=== PATIENT | female | born 1955 | race Caucasian/White ===

== ENCOUNTER → 2018-07-09 11:09 | Outpatient (CLI) | payer OTHER, SELFPAY ==
[2018-07-09 12:15] LABS: Erythrocyte Sedimentation Rate 13 mm/hr (0-30)
[2018-07-09 12:32] LABS: Vitamin D,25 Hydroxy 40.2 ng/mL (29.95-100.01)
[2018-07-09 12:35] LABS: ALB/GLOB Ratio 1.2 RATIO (0.9-2.4); AST(SGOT) 25 U/L (15-37); Alanine Aminotransfer ALT/SGPT 35 U/L (13-56); Alkaline Phosphatase 81 U/L (45-117); Anion Gap 9 (5-15); BUN 26 mg/dL (7-18); BUN/Creat Ratio 27.5 RATIO (10-20); Calcium,Total 9.1 mg/dL (8.5-10.1); Chloride 103 mmol/L (98-107); Creatinine, Serum 0.95 mg/dL (0.55-1.02); EST Glomerular Filtration Rate 63 mL/min (>60); Est Glom Filt Rate - Afr Amer 76 mL/min (>60); Globulin 3.2 g/dL (2.2-4.2); Glucose 91 mg/dL (74-106); Protein, Total 7.2 g/dL (6.4-8.2); Sodium Level 142 mmol/L (136-145)
== END ==
PROVIDERS: Family Provider Family Medicine; PCP Family Medicine; Visit Provider Family Medicine
DX: L40.9 Psoriasis, unspecified (principal); R73.01 Impaired fasting glucose
CPT/HCPCS: 36415; 80053; 82043; 82306; 82570; 85652

== ENCOUNTER → 2018-09-23 09:53 | Outpatient (CLI) | payer OTHER, MEDICARE, SELFPAY ==
--- NOTE | 2018-09-23 10:00 | RAD_ITS ---
STUDY: X-RAY - RIGHT CALCANEUS REASON FOR EXAM: Heel pain. TECHNIQUE: 2 view(s) of the calcaneus were obtained. COMPARISON: Radiographs 06/07/2016. FINDINGS: There are posterior and plantar calcaneal enthesophytes. 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 There are small ossifications in the distal Achilles tendon consistent with chronic ossific tendinitis. RAD/Calcaneus min 2 Views IMPRESSION: Calcaneal enthesopathy as on the prior study. 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 Electronically Signed: George Najera MD at 13:34 EST Tel , Service support ,
--- NOTE | 2018-09-23 10:00 | RAD_ITS ---
STUDY: X-RAY - LEFT CALCANEUS REASON FOR EXAM: Heel pain. TECHNIQUE: 2 view(s) of the calcaneus were obtained. COMPARISON: Radiographs 09/23/2018. FINDINGS: There are posterior and plantar calcaneal enthesophytes. There is an ossification in the Achilles tendon at the calcaneal insertion consistent with chronic ossific tendinitis. RAD/Calcaneus min 2 Views IMPRESSION: Calcaneal enthesopathy as on the prior study. 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 Electronically Signed: George Najera MD at 13:33 EST Tel , Service support ,
== END ==
PROVIDERS: Family Provider Family Medicine; PCP Family Medicine; Referring Provider Family Medicine; Visit Provider Family Medicine
DX: M77.30 Calcaneal spur, unspecified foot (principal)
CPT/HCPCS: 73650

== ENCOUNTER → 2018-09-24 09:35 | Outpatient (CLI) | payer OTHER, SELFPAY ==
--- NOTE | 2018-09-24 09:41 | BI_ITS ---
MAMMOGRAPHY - BILATERAL SCREENING REASON FOR EXAM: Female, 63 years old. Routine annual screening examination. PERTINENT HISTORY: Non-contributory. Remote left excisional breast biopsy. TECHNIQUE: Digital bilateral breast bay (3D mammographic acquisition) in the CC and MLO projections. 2-D mediolateral oblique (MLO) and craniocaudad (CC) views of both breasts were obtained. CAD: Full Field Digital Mammography with Computer Added Detection was performed. COMPARISON: Comparison is made with prior examination dated July 13, 2015 and July 25, 2016. FINDINGS: Breast Composition: There are scattered areas of fibroglandular density. There is a 7.1 mm x 5.2 mm well-defined nodule in the mid retroareolar region. Correlation with ultrasound is recommended. Stable small bilateral axillary lymph nodes. No other significant abnormalities are identified. BI/SCREENING MAMM (CAD), BILAT IMPRESSION: 7.1 mm x 5.2 mm well-defined nodule in the mid depth retroareolar region of the left breast. Correlation with ultrasound is recommended. ASSESSMENT CATEGORY: BIRADS Category 0: Incomplete. Need additional imaging evaluation. A letter regarding these results will be sent to the patient by the facility within 30 days. Approximately 10% of breast cancers are not detected by mammography. A normal mammogram should not delay biopsy of a clinically suspicious abnormality. [id number] Electronically Signed: Roland Christiansen MD at 13:02 EST Tel [phone], Service support ,
--- NOTE | 2018-09-24 09:43 | BD_ITS ---
STUDY: DUAL ENERGY X-RAY ABSORPTIOMETRY / DXA REASON FOR EXAM: Female, 63 years old. The patient is postmenopausal. Loss of height. TECHNIQUE: Bone Mineral Density (BMD) measurements of lumbar spine and bilateral hips were obtained. COMPARISON: Comparison is made with prior study dated July 19, 2016. FINDINGS: Lumbar Spine (L1-L4): g/cm2 (1.611) / T-score (3.7) / Z-score (5.3) Findings are suggestive of normal bone density with a low fracture risk. Left Femur Total: g/cm2 (1.427) / T-score (3.3) / Z-score (4.5) Left Femoral Neck: g/cm2 (1.150) / T-score (0.8) / Z-score (2.3) Right Femur Total: g/cm2 (1.345) / T-score (2.7) / Z-score (3.9) Right Femoral Neck: g/cm2 (1.029) / T-score (-0.1) / Z-score (1.4) The T-Scores on the most recent prior examination were: Lumbar Spine (L1-L4): There has been worsening of bone density since the previous examination. Left Femur Total: which represents an improvement of 4.9%. Right Femur Total: which represents a worsening of 2.1%. BD/Dexa Bone Density Study IMPRESSION: The patient is considered normal as outlined below according to World [employer] Organization (WHO) criteria with a low fracture risk. There has been worsening of bone density since the previous examination. Reference Information: The T-score is the number of standard deviations above or below the standard which is normal for young adults at their peak bone mineral density. The World Health Organization (WHO) interprets the T-scores as follows: Above -1 Normal bone density Between -1 and -2.5 Osteopenia Equal to / or below -2.5 Osteoporosis As a practical clinical guideline, osteopenia may be graded as follows: Mild -1 through -1.5 Moderate -1.6 through -2.0 Severe -2.1 through -2.4 The Z-score is the number of standard deviations above or below age-matched controls. A Z-score of less than -1.5 would be considered abnormal. References: 1. NIH Osteoporosis and Related Bone Diseases http://www.osteo.org 2. International Society for Clinical Densitometry http://www.iscd.org 3. National Osteoporosis Foundation http://www.nof.org Electronically Signed: Roland Christiansen MD at 11:16 EST Tel [phone], Service support ,
== END ==
PROVIDERS: Family Provider Family Medicine; PCP Family Medicine; Visit Provider Family Medicine
DX: Z12.31 Encounter for screening mammogram for malignant neoplasm of breast (principal); Z78.0 Asymptomatic menopausal state
CPT/HCPCS: 77063; 77067; 77080

== ENCOUNTER → 2018-09-25 14:57 | Outpatient (CLI) | payer OTHER, MEDICARE, SELFPAY ==
--- NOTE | 2018-09-25 14:59 | US_ITS ---
STUDY: ULTRASOUND BREAST - LEFT REASON FOR EXAM: Female, 63 years old. Abnormal screening mammogram. TECHNIQUE: Axial and longitudinal images of the LEFT breast were performed with a high resolution ultrasound transducer. COMPARISON: Comparison is made with prior mammogram dated September 24, 2018. FINDINGS: LEFT Breast: The mammographic abnormality corresponds to a 6 mm x 4 mm x 4 mm cyst at the 6:00 position breast at 1 cm from the nipple. US/Breast Limited Unilateral IMPRESSION: The mammographic abnormality corresponds to a 6 mm x 4 mm x 4 mm cyst at the 6:00 position of breast at 1 cm from the nipple. ASSESSMENT CATEGORY: BIRADS Category 2: Benign. A letter regarding these results will be sent to the patient by the facility within 30 days. Electronically Signed: Roland Christiansen MD at 8:27 EST Tel [phone], Service support ,
== END ==
PROVIDERS: Family Provider Family Medicine; PCP Family Medicine; Referring Provider Family Medicine; Visit Provider Family Medicine
DX: R92.8 Other abnormal and inconclusive findings on diagnostic imaging of breast (principal)
CPT/HCPCS: 76642

== ENCOUNTER → 2018-10-06 12:51 | Outpatient (CLI) | payer OTHER, MEDICARE, SELFPAY ==
--- NOTE | 2018-10-06 12:53 | RAD_ITS ---
STUDY: X-RAY - LEFT SHOULDER REASON FOR EXAM: Female, 63 years old. Pain. TECHNIQUE: 4 view(s) of the shoulder. COMPARISON: None. FINDINGS: Normal glenohumeral articulation. There is degenerative arthrosis of the acromioclavicular joint without inferior osseous spur formation. Normal acromion. There is no acute fracture, dislocation or destructive osseous pathology. Normal humeral head and visualized proximal humerus. The soft tissue structures are unremarkable. Normal visualized pulmonary apex. RAD/Shoulder min 2 Views IMPRESSION: Degenerative changes of the acromioclavicular joint. Electronically Signed: Justin Omer DO at 17:50 EST Tel [phone], Service support ,
--- OUTSIDE RECORDS SUMMARY | 2018-12-08 23:45 | XMS RPT_ITS ---
:1955 Author Organization OHIP Care Team Providers Name Role Phone Davidson Naik Attending Unavailable Davidson Naik Referring Unavailable Jemma, Pollo Primary Care Unavailable Pollo Easton Attending Unavailable [facility] Unavailable Pollo Easton Attending Unavailable Jemma, [facility] Unavailable Pollo Easton Attending Unavailable Pollo Easton Referring Unavailable Jemma, Christopher Primary Care Unavailable Pollo Easton Attending Unavailable Pollo Easton Referring Unavailable Jemma, Christopher Primary Care Unavailable PROBLEMS PROBLEMS DATE TYPE CONDITION / ATTENDING STATUS SOURCE CODE 10/06/2018 Unknown M25.512 - Pain Jemma Active [place] in left [facility] shoulder / Hospital M25.512(ICD-10) Repository PROCEDURES PROCEDURES No Procedure Records FoundRESULTS RESULTS SHOULDER MIN 2 VIEWS Observed: 10/06/2018 Status: F Source: [place] 12:53 PM [facility] REPOSITORY [facility] Imaging Services [address] [place] [address] Shoulder min 2 Views MR#: [id number] Acct: [id number] Name: LISANDRA ABREU Rep #: [id number] : 1955 F 63 From: Justin Omer DO PCP: Pollo Easton MD Status: REG CLI Study: Shoulder min 2 Views Date of Exam: 10/06/18 Exam# [id number] Ordering Dr: Kit Easton MD STUDY: X-RAY - LEFT SHOULDER REASON FOR EXAM: Female, 63 years old. Pain. TECHNIQUE: 4 view(s) of the shoulder. COMPARISON: None. FINDINGS: Normal glenohumeral articulation. There is degenerative arthrosis of the acromioclavicular joint without inferior osseous spur formation. Normal acromion. There is no acute fracture, dislocation or destructive osseous pathology. Normal humeral head and visualized proximal humerus. The soft tissue structures are unremarkable. Normal visualized pulmonary apex. RAD/Shoulder min 2 Views IMPRESSION: Degenerative changes of the acromioclavicular joint. Electronically Signed: Justin Omer DO at 17:50 EST Tel [phone], Service support , CC: Pollo Easton MD Card Boxer: Signed BREAST LIMITED Observed: 09/25/2018 Status: F Source: [place] UNILATERAL 2:59 PM [facility] REPOSITORY [facility] Imaging Services [address] [place] [address] Breast Limited Unilateral MR#: [id number] Acct: [id number] Name: LISANDRA ABREU Rep #: [id number] : 1955 F 63 From: Roland Christiansen MD PCP: Pollo Easton MD Status: REG CLI Study: Breast Limited Unilateral Date of Exam: 09/25/18 Exam# [id number] Ordering Dr: Kit Easton MD STUDY: ULTRASOUND BREAST - LEFT REASON FOR EXAM: Female, 63 years old. Abnormal screening mammogram. TECHNIQUE: Axial and longitudinal images of the LEFT breast were performed with a high resolution ultrasound transducer. COMPARISON: Comparison is made with prior mammogram dated September 24, 2018. FINDINGS: LEFT Breast: The mammographic abnormality corresponds to a 6 mm x 4 mm x 4 mm cyst at the 6:00 position breast at 1 cm from the nipple. US/Breast Limited Unilateral IMPRESSION: The mammographic abnormality corresponds to a 6 mm x 4 mm x 4 mm cyst at the 6:00 position of breast at 1 cm from the nipple. ASSESSMENT CATEGORY: BIRADS Category 2: Benign. A letter regarding these results will be sent to the patient by the facility within 30 days. Electronically Signed: Roland Christiansen MD at 8:27 EST Tel [phone], Service support , CC: Pollo Easton MD Card Boxer: Signed DEXA BONE DENSITY Observed: 09/24/2018 Status: F Source: [place] STUDY 9:41 AM [facility] REPOSITORY [facility] Imaging Services [address] [place] [address] Dexa Bone Density Study MR#: [id number] Acct: [id number] Name: LISANDRA ABREU Rep #: [id number] : 1955 F 63 From: Roland Christiansen MD PCP: Pollo Easton MD Status: REG CLI Study: Dexa Bone Density Study Date of Exam: 09/24/18 Exam# [id number] Ordering Dr: Kit Easton MD STUDY: DUAL ENERGY X-RAY ABSORPTIOMETRY / DXA REASON FOR EXAM: Female, 63 years old. The patient is postmenopausal. Loss of height. TECHNIQUE: Bone Mineral Density (BMD) measurements of lumbar spine and bilateral hips were obtained. COMPARISON: Comparison is made with prior study dated July 19, 2016. FINDINGS: Lumbar Spine (L1-L4): g/cm2 (1.611) / T-score (3.7) / Z-score (5.3) Findings are suggestive of normal bone density with a low fracture risk. Left Femur Total: g/cm2 (1.427) / T-score (3.3) / Z-score (4.5) Left Femoral Neck: g/cm2 (1.150) / T-score (0.8) / Z- score (2.3) Right Femur Total: g/cm2 (1.345) / T-score (2.7) / Z- score (3.9) Right Femoral Neck: g/cm2 (1.029) / T-score (-0.1) / Z-score (1.4) The T-Scores on the most recent prior examination were: Lumbar Spine (L1-L4): There has been worsening of bone density since the previous examination. Left Femur Total: which represents an improvement of 4.9%. Right Femur Total: which represents a worsening of 2.1%. BD/Dexa Bone Density Study IMPRESSION: The patient is considered normal as outlined below according to World [employer] Organization (WHO) criteria with a low fracture risk. There has been worsening of bone density since the previous examination. Reference Information: The T-score is the number of standard deviations above or below the standard which is normal for young adults at their peak bone mineral density. The World Health Organization (WHO) interprets the T-scores as follows: Above -1 Normal bone density Between -1 and -2.5 Osteopenia Equal to / or below -2.5 Osteoporosis As a practical clinical guideline, osteopenia may be graded as follows: Mild -1 through -1.5 Moderate -1.6 through -2.0 Severe -2.1 through -2.4 The Z-score is the number of standard deviations above or below age-matched controls. A Z-score of less than -1.5 would be considered abnormal. References: 1. NIH Osteoporosis and Related Bone Diseases http://www.osteo.org 2. International Society for Clinical Densitometry http://www.iscd.org 3. National Osteoporosis Foundation http://www.nof.org Electronically Signed: Roland Christiansen MD at 11:16 EST Tel [phone], Service support , CC: Pollo Easton MD Card Boxer: Signed SCREENING MAMM (CAD), Observed: 09/24/2018 Status: F Source: [place] BIL 9:41 AM [facility] REPOSITORY [facility] Imaging Services [address] [place] [place] [address] SCREENING MAMM (CAD), BILAT MR#: [id number] Acct: [id number] Name: LISANDRA ABREU Rep #: [id number] : 1955 F 63 From: Roland Christiansen MD PCP: Pollo Easton MD Status: REG CLI Study: SCREENING MAMM (CAD), BILAT Date of Exam: 09/24/18 Exam# [id number] Ordering Dr: Kit Easton MD MAMMOGRAPHY - BILATERAL SCREENING REASON FOR EXAM: Female, 63 years old. Routine annual screening examination. PERTINENT HISTORY: Non-contributory. Remote left excisional breast biopsy. TECHNIQUE: Digital bilateral breast bay (3D mammographic acquisition) in the CC and MLO projections. 2-D mediolateral oblique (MLO) and craniocaudad (CC) views of both breasts were obtained. CAD: Full Field Digital Mammography with Computer Added Detection was performed. COMPARISON: Comparison is made with prior examination dated July 13, 2015 and July 25, 2016. FINDINGS: Breast Composition: There are scattered areas of fibroglandular density. There is a 7.1 mm x 5.2 mm well-defined nodule in the mid retroareolar region. Correlation with ultrasound is recommended. Stable small bilateral axillary lymph nodes. No other significant abnormalities are identified. BI/SCREENING MAMM (CAD), BILAT IMPRESSION: 7.1 mm x 5.2 mm well-defined nodule in the mid depth retroareolar region of the left breast. Correlation with ultrasound is recommended. ASSESSMENT CATEGORY: BIRADS Category 0: Incomplete. Need additional imaging evaluation. A letter regarding these results will be sent to the patient by the facility within 30 days. Approximately 10% of breast cancers are not detected by mammography. A normal mammogram should not delay biopsy of a clinically suspicious abnormality. [id number] Electronically Signed: Roland Christiansen MD at 13:02 EST Tel [phone], Service support , CC: Pollo Easton MD Card Boxer: Signed CALCANEUS MIN 2 VIEWS Observed: 09/23/2018 Status: F Source: [place] 10:00 AM [facility] REPOSITORY [facility] Imaging Services [address] [place] [address] Calcaneus min 2 Views MR#: [id number] Acct: [id number] Name: LISANDRA ABREU Rep #: [id number] : 1955 F 63 From: George Najera MD PCP: Pollo East[place] MD Status: REG CLI Study: Calcaneus min 2 Views Date of Exam: 09/23/18 Exam# [id number] Ordering Dr: [place] Naik MD STUDY: X-RAY - LEFT CALCANEUS REASON FOR EXAM: Heel pain. TECHNIQUE: 2 view(s) of the calcaneus were obtained. COMPARISON: Radiographs 09/23/2018. FINDINGS: There are posterior and plantar calcaneal enthesophytes. There is an ossification in the Achilles tendon at the calcaneal insertion consistent with chronic ossific tendinitis. RAD/Calcaneus min 2 Views IMPRESSION: Calcaneal enthesopathy as on the prior study. 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 Electronically Signed: George Najera MD at 13:33 EST Tel , Service support , CC: Pollo Easton MD; Davidson Naik MD Card Boxer: Signed CALCANEUS MIN 2 VIEWS Observed: 09/23/2018 Status: F Source: [place] 10:00 AM [facility] REPOSITORY [facility] Imaging Services [address] [place] [address] Calcaneus min 2 Views MR#: [id number] Acct: [id number] Name: LISANDRA ABREU Rep #: [id number] : 1955 F 63 From: George Najera MD PCP: Pollo Easton MD Status: REG CLI Study: Calcaneus min 2 Views Date of Exam: 09/23/18 Exam# [id number] Ordering Dr: [place] Naik MD STUDY: X-RAY - RIGHT CALCANEUS REASON FOR EXAM: Heel pain. TECHNIQUE: 2 view(s) of the calcaneus were obtained. COMPARISON: Radiographs 06/07/2016. FINDINGS: There are posterior and plantar calcaneal enthesophytes. 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 There are small ossifications in the distal Achilles tendon consistent with chronic ossific tendinitis. RAD/Calcaneus min 2 Views IMPRESSION: Calcaneal enthesopathy as on the prior study. 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 Electronically Signed: George Najera MD at 13:34 EST Tel , Service support , CC: Pollo Easton MD; Davidson Naik MD Card Boxer: Signed ERYTHROCYTE SED RATE Collected: 07/09/2018 Status: F Source: [place] 11:10 AM [facility] REPOSITORY TYPE CODE TESTS RESULT OUT OF RANGE REFERENCE UNITS LAB L102.0000 0-30 mm/hr Normal SED RATE 13 Performed By: #### L101.9900, L506.1000, L500.4050 #### [facility] [address] [place], [place], [address] VITAMIN D,25 HYDROXY Collected: 07/09/2018 Status: F Source: [place] 11:10 AM [facility] REPOSITORY TYPE CODE TESTS RESULT OUT OF RANGE REFERENCE UNITS LAB L506.1000 29.95-100.01 ng/mL Normal Vitamin D 40.2 25-OH Result Comment: Vitamin D 25(OH) Status Range Deficiency <20 ng/mL (50nmol/L) Insuffciency 20 - 30 ng/mL (50 - 75 nmol/L) Sufficiency 30 - 100 ng/mL (75 - 250 nmol/L) Toxicity >100 ng/mL (>250 nmol/L) Performed By: #### L101.9900, L506.1000, L500.4050 #### [facility] [address] [place], [address] COMPREHENSIVE METABOLIC Collected: 07/09/2018 Status: F Source: [place] PROFIL 11:10 AM [facility] REPOSITORY TYPE CODE TESTS RESULT OUT OF RANGE REFERENCE UNITS LAB L501.0100 74-106 mg/dL Normal GLU 91 Result Comment: Please note revised GLUCOSE reference range effective 2017. LAB L501.1000 7-18 mg/dL High BUN 26 LAB L501.1100 0.55-1.02 mg/dL Normal CREAT,SERUM 0.95 Result Comment: The validity of the calculated GFR AND GFRAA in patients over 70 years has not been determined. Clinical correlation is essential. LAB L501.1110 >60 mL/min Normal EST GFR 63 Result Comment: Non- GFR Calc LAB L501.1115 >60 mL/min Normal EST GFR - AA 76 Result Comment: GFR Calc LAB L501.1300 10-20 RATIO High BUN/CRE 27.5 LAB L501.1500 6.4-8.2 g/dL T Normal PROT 7.2 LAB L501.1800 3.2-5.0 g/dL Normal ALB 4.0 LAB L501.1950 2.2-4.2 g/dL Normal GLOB 3.2 LAB L501.2000 0.9-2.4 RATIO Normal A/G 1.2 LAB L501.2200 8.5-10.1 mg/dL CA Normal 9.1 LAB L501.4100 15-37 U/L Normal AST 25 LAB L501.4305 45-117 U/L Normal ALK P 81 LAB L501.4405 13-56 U/L Normal ALT 35 LAB L501.4600 0.20-1.00 mg/dL T Normal BILI 0.70 LAB L501.5300 136-145 mmol/L NA Normal 142 LAB L501.5600 3.5-5.1 mmol/L K Normal 4.0 LAB L501.5900 98-107 mmol/L CL Normal 103 LAB L501.6100 21.0-32.0 mmol/L Normal CO2 30.0 LAB L501.6200 5-15 Normal GAP 9 Performed By: #### L101.9900, L506.1000, L500.4050 #### [facility] [address] [place], [place], [id number] ALLERGIES ALLERGIES DATE TYPE / CODE NAME / CODE REACTION SEVERITY SOURCE 04/23/2016 Drug tetracycline/E28627 Rash Unknown [place] Allergy/416 8097(RXNORM) [facility] 200165([facility] ED CT) Repository 04/23/2016 Drug erythromycin Rash Unknown [place] Allergy/416 base/[id number](RXN [facility] 201963([facility] ED CT) Repository ENCOUNTERS ENCOUNTERS ADMIT/DISCHARGE ACCOUNT ADMITTING ENCOUNTER LOCATION SOURCE NUMBER CLASS 10/06/2018 [id number] Ambulatory [place] 3 [facility] ing:MTRAD Repository 09/25/2018 [id number] Ambulatory [place] 0 [facility] ing:OPUS Repository 09/24/2018 [id number] Ambulatory [place] 3 [facility] ing:OPBD Repository 09/23/2018 [id number] [place] [facility] ing:MTRAD Repository 07/09/2018 [id number] Ambulatory [place] 2 [facility] ing:MFPLAB Repository PAYERS PAYERS ENCOUNTER GUARANTOR PAYER SUBSCRIBER SOURCE 10/06/2018 LISANDRA Solomon Primary LISANDRA K [place] [id number] Insurance:MEDICAL BRIERLYDOB: [facility] [place] Number: Repository [address]Gix: 330 [id number] [phone] () Date:8516-93-78DX[address] [address]AO: 10/06/2018 Secondary NOT GIVENUNK [place] Insurance:SELF PAY [facility] Number: Effective Repository Date:2018-10-06 09/25/2018 LISANDRA Carbajal Primary LISANDRA K [place] [id number] Insurance:MEDICAL BRIERLYDOB: [facility] [place] Number: Repository [address]Wcw: 330 [id number] [phone] () Date:6794-72-04AD[address] [address]GJ: 09/25/2018 Secondary NOT GIVENUNK [place] Insurance:SELF PAY [facility] Number: Effective Repository Date:2018-09-24 09/24/2018 LISANDRA K Primary LISANDRA K [place] [id number] Insurance:MEDICAL BRIERLYDOB: [facility] [id number] Number: Repository [address]Iku: 330 [id number] [phone] (HP) Date:6425-16-70GO [address] [address]DY: 09/24/2018 Secondary NOT GIVENUNK [place] Insurance:SELF PAY [facility] Number: Effective Repository Date:2018-07-15 09/23/2018 LISANDRA K Primary LISANDRA K [place] [id number] Insurance:MEDICAL BRIERLYDOB: [facility] [id number] Number: Repository [address]Fit: 330 [id number] [phone] (HP) Date:8629-41-52LD [address] [address]KL: 09/23/2018 Secondary NOT GIVENUNK [place] Insurance:SELF PAY [facility] Number: Effective Repository Date:2018-09-23 07/09/2018 Lisandra K Primary Lisandra K [place] [id number] Insurance:MEDICAL BrierlyDOB: [facility] [id number] Number: Repository [id number]: 330 [id number] [phone] (HP) Date:0294-55-30RP [address] [address]ML: 07/09/2018 Secondary NOT GIVENUNK [place] Insurance:SELF PAY [facility] Number: Effective Repository Date:2018-07-09
== END ==
PROVIDERS: Family Provider Family Medicine; PCP Family Medicine; Referring Provider Family Medicine; Visit Provider Family Medicine
DX: M25.512 Pain in left shoulder (principal)
CPT/HCPCS: 73030

== ENCOUNTER → 2018-12-03 16:14 | Outpatient (CLI) | payer MEDICARE, SELFPAY ==
--- NOTE | 2018-12-03 16:21 | MRI_ITS ---
STUDY: MRI LEFT ANKLE WITHOUT CONTRAST REASON FOR EXAM: Female, 63 years old. Achilles tendinitis TECHNIQUE: Standardized fat and water weighted pulse sequences were obtained in all 3 orthogonal planes. COMPARISON: X-ray September 23, 2018 FINDINGS: Normal subcutis adipose space. There is accessory navicular incorporated into the posterior tibialis tendon. There are cystic regions of the navicular. Normal flexor digitorum longus tendon. Normal flexor hallucis longus tendon. Normal peroneus longus and brevis tendons. Normal tibialis anterior tendon. Normal extensor hallucis longus tendon. Normal extensor digitorum longus tendons. There is tendinosis with enthesopathic changes of the teno-osseous insertion of the Achilles tendon, and partial intrasubstance distal tendon tear, series 10 image 06/07 through 09/06. There is spurring with mild marrow edema. Normal plantar fascia. There is a plantar calcaneal spur, but without cancellous marrow edema. Normal intrinsic muscles of the rearfoot. Normal distal tibiofibular syndesmotic ligamentous complex. Normal lateral ligamentous complex. Normal subtalar ligaments and sinus tarsi. Normal deltoid ligamentous complexes. Normal plantar calcaneonavicular (spring) ligament. Normal tibiotalar articulation. Normal talar dome. Normal subtalar articulations. Normal talonavicular articulation. Arthritic change at the calcaneocuboid articulation. Normal navicular-cuneiform articulations. MRI/Lower Ext Joint Only (Routine) IMPRESSION: Achilles tendinitis with partial tearing and reactive spur of the posterior calcaneus. Electronically Signed: Catrachito Hansen MD at 19:52 EDT , Service support ,
== END ==
PROVIDERS: Family Provider Family Medicine; PCP Family Medicine; Referring Provider Podiatrist; Visit Provider Podiatrist
DX: M76.62 Achilles tendinitis, left leg (principal); M72.2 Plantar fascial fibromatosis
CPT/HCPCS: 73721

== ENCOUNTER 2019-01-30 09:30 | Outpatient (RCR) | payer MEDICARE, SELFPAY ==
--- NOTE | 2019-01-16 11:30 | HP.PTEVAL ---
Patient's Visit Information CHRIS ABREU is a 63 year old F referred to Physical Therapy by Satish Sarkar DPM with a diagnosis of Achilles Tendonitis/Tendonosis, Retrocalcaneal Spur. Date of Evaluation: 01/16/19 Physical Therapist: Macy Darby DPT - Visit Plan Frequency: 2x /Week Duration: 2 Weeks Plan: Dry Needling, STM and ultrasound with gastroc stretching - Subjective Findings: Patient reports that she is currently seeing Dr. Sarkar for her achilles. She had the right one repaired 20 years ago when she had a bone spur. This one started to act up in September when she retired. She was unable to walk and finally gave him and saw MD even though the foot has been flaring on/off for at least a year. She has had MRI and x-ray of the left foot. MD attempted multiple rounds of steroids which would help for a few weeks but then it would come right back. He put her in the boot in the beginning of November and she is trying to progress towards an ankle brace. Most of her pain is in the back of the ankle and the ball of the foot. Describes it at dull and achy 3-4/10 at all times. Goes away when she sits down and is aggravated by standing for to long or walking. She report no radiating pain or N/T in the left LE. She is currently doing EPAT with Dr. Sarkar and has had 4 treatments and plans 2 more (one this afternoon). She is not exactly sure what to expect from therapy. Sleep is not disturbed. She does not wear orthotics in her shoes. PMHX: kidney cancer with removal of kidney 21 years ago, HTN, Borderline DM, Meds: see list - Objective Posture: FH, RS, Increased kyphosis. Gait: antalgic- ambulates into the clinic with CAM walker and platform shoe. When not in shoes patient has significant pes planus, toes turned out to the side, decreased stance on the left LE with poor heel/toe pattern. HR/TR: able with UE A from wall and increase discomfort with both. SLS: unable but does fully WS with UE A from wall. Palpation: tender along distal achilles and along proximal metatarsal joint. ROM: Knee: WFL, Ankle: DF: 0 degrees, PF: 60 degrees, Ever: 30 degrees Inv: 30 degrees. Strength: Knee/Ankle: 5/5. Flex: Gastroc: severe, Soleus: moderate - Goals Goal 1:: Patient will be I with HEP and progression Goal Time Frame: 4-6 Weeks Goal 2:: Patient will ambulate >300 feet with a normalized pattern Goal Time Frame: 4-6 Weeks Goal 3:: Patient will SLS for 5 seconds without LOB Goal Time Frame: 4-6 Weeks Goal 4:: Patient will demo 10 degrees of DF Goal Time Frame: 4-6 Weeks - Rehabilitation Potential Physical Therapy Diagnosis: Patient presents with hypomobility she has decreased ROM and increased pain with ADL's Rehabilitation Potential: Fair - Anticipated Interventions Patient/Client Instruction: Educate patient on: Benefits of Fitness Program Therapeutic Exercise to Include: Strength training, Balance training, Agility training, Body mechanics, Postural training, Flexibilty training, Gait and locomotor training, Passive ROM, Active ROM Manual Therapy Techniques to Include: Passive ROM, Functional dry needling, Soft tissue mobilization For the Purpose of:: To improve nutrient delivery to tissue, To increase oxygenation perfusion TENS: Yes Cryotherapy (ice pack, ice massage): Yes Thermo therapy (hot pack): Yes Ultrasound (thermal/non thermal): Yes For the Purpose of:: To decrease pain Thank you for the opportunity to evaluate your patient. For Medicare and Medicare HMO plans, please review the plan of care and approve it. It will need to be FAXED BACK to us at [phone] for Medicare purposes. For Medicare only, by signing this I certify the plan of care. Please let me know if there are questions or concerns regarding this plan of care. Physician Signature: Date:
--- NOTE | 2019-01-30 10:00 | HP.PTDCSUM ---
HP - PT D/C Summary It has been my pleasure to treat CHRIS ABREU under orders from Satish Sarkar DPM, for the diagnosis of Achilles Tendonitis/Tendonosis, Retrocalcaneal Spur for a total of 4 visit(s). Discharge Date: Please see the following information for a summary of their discharge status. - Subjective Subjective: Patient reports that she has not had pain for over 2 weeks. - Overall Improvement % Improvement: 100 - Objective Objective/Function: Posture: FH, RS, Increased kyphosis. Gait: antalgic- ambulates into the clinic with CAM walker and platform shoe. When not in shoes patient has significant pes planus, toes turned out to the side, decreased stance on the left LE with poor heel/toe pattern. HR/TR: able with UE A from wall and increase discomfort with both. SLS: unable but does fully WS with UE A from wall and will remove hands for a brief second. Palpation: tender along distal achilles and along proximal metatarsal joint. ROM: Knee: WFL, Ankle: DF: 0 degrees, PF: 60 degrees, Ever: 30 degrees Inv: 30 degrees. Strength: Knee/Ankle: 5/5. Flex: Gastroc: severe, Soleus: moderate - Goals Goal 1:: Patient will be I with HEP and progression Goal 2:: Patient will ambulate >300 feet with a normalized pattern Goal 3:: Patient will SLS for 5 seconds without LOB Goal 4:: Patient will demo 10 degrees of DF - Plan Plan: Discharge - D/C Information If there are questions or concerns regarding this patient's physical therapy, please feel free to call me at [phone]. Thank you for the referral of this patient. Sincerely, KELLEY SnyderT
== END 2019-01-30 13:50 | disposition home or self-care (01) ==
LOC: PT 09:30
PROVIDERS: Family Provider Family Medicine; PCP Family Medicine; Referring Provider Podiatrist; Visit Provider Podiatrist
DX: M76.62 Achilles tendinitis, left leg (principal); M77.52 Other enthesopathy of left foot and ankle
CPT/HCPCS: 97035; 97140; 97161; 97530

== ENCOUNTER → 2019-03-30 16:22 | Outpatient (CLI) | payer MEDICARE, SELFPAY ==
--- NOTE | 2019-03-30 16:26 | RAD_ITS ---
STUDY: X-RAY CHEST REASON FOR EXAM: Female, 63 years old. Chest pain TECHNIQUE: Frontal view of the chest COMPARISON: None. FINDINGS: The lungs are clear. There are no pleural effusions. There is no pneumothorax. The heart is normal in size. The visualized osseous structures are within normal limits. Mild to moderate multilevel osteophytosis is present with areas of bridging. RAD/Chest PA and Lateral IMPRESSION: No acute thoracic pathology. Electronically Signed: Satish Villeda, at 17:06 EDT Tel , Service support ,
== END ==
PROVIDERS: Family Provider Family Medicine; PCP Family Medicine; Referring Provider Internal Medicine Pulmonary Disease; Visit Provider Internal Medicine Pulmonary Disease
DX: R09.02 Hypoxemia (principal); Z87.891 Personal history of nicotine dependence
CPT/HCPCS: 71046

== ENCOUNTER → 2019-03-31 | Outpatient (CLI) | payer MEDICARE, SELFPAY ==
[2019-03-31 13:26] LABS: Anion Gap 8 (5-15); BUN 20 mg/dL (7-18); BUN/Creat Ratio 21.2 RATIO (10-20); Calcium,Total 9.6 mg/dL (8.5-10.1); Chloride 100 mmol/L (98-107); Cholesterol 140 mg/dL (200); Creatinine, Serum 0.94 mg/dL (0.55-1.02); EST Glomerular Filtration Rate 63 mL/min (>60); Est Glom Filt Rate - Afr Amer 77 mL/min (>60); Glucose 120 mg/dL (74-106); High Density Lipoprotein 52 mg/dL; Potassium 4.2 mmol/L (3.5-5.1); Sodium Level 140 mmol/L (136-145); Triglycerides 139 mg/dL; Very Low Density Lipoprotein 28 mg/dL (5-40)
== END | disposition home or self-care (01) ==
LOC: MFPLAB 11:25
PROVIDERS: Family Provider Family Medicine; PCP Family Medicine; Referring Provider Family Medicine; Visit Provider Family Medicine
DX: E11.9 Type 2 diabetes mellitus without complications (principal); E78.00 Pure hypercholesterolemia, unspecified
CPT/HCPCS: 36415; 80048; 80061

== ENCOUNTER → 2019-07-24 09:28 | Outpatient (CLI) | payer MEDICARE, SELFPAY ==
--- NOTE | 2019-07-24 09:31 | US_ITS ---
PROCEDURES: ULTRASOUND AORTA REASON FOR EXAM: Female, 63 years old. Screening for abdominal aortic aneurysm. TECHNIQUE: Ultrasound evaluation of the aorta was performed with real-time and static coto-scale imaging. COMPARISON: None. FINDINGS: There is obscuration of the proximal abdominal aorta by overlying bowel gas Aorta measures: Proximal 1.6 cm. Middle 1.5 cm. Distal 1.5 cm. Aorta measure transversely: Proximal 1.8 cm. Middle 1.8 cm. Distal 2.0 cm. The right and left common iliac arteries were not visualized due to overlying bowel gas. There is no demonstrated aneurysm.. US/Aorta IMPRESSION: No evidence of abdominal aortic aneurysm. Electronically Signed: Roland Christiansen, at 13:36 EST , Service support ,
== END ==
PROVIDERS: Family Provider Family Medicine; PCP Family Medicine; Referring Provider Family Medicine; Visit Provider Family Medicine
DX: Z13.6 Encounter for screening for cardiovascular disorders (principal)
CPT/HCPCS: 76775

== ENCOUNTER → 2019-09-29 09:56 | Outpatient (CLI) | payer MEDICARE, OTHER, SELFPAY ==
--- NOTE | 2019-09-29 10:00 | BI_ITS ---
MAMMOGRAPHY - BILATERAL SCREENING REASON FOR EXAM: Female, 64 years old. Routine annual screening examination. PERTINENT HISTORY: Non-contributory. Remote left excisional breast biopsy. TECHNIQUE: Digital bilateral breast nicole (3D mammographic acquisition) in the CC and MLO projections. 2-D mediolateral oblique (MLO) and craniocaudad (CC) views of both breasts were obtained. CAD: Full Field Digital Mammography with Computer Added Detection was performed. COMPARISON: Comparison is made with prior study dated September 24, 2018 and July 25, 2016. FINDINGS: Breast Composition: There are scattered areas of fibroglandular density. There are no dominant masses or suspicious calcifications. Stable 7 mm x 5 mm well-defined nodule in the mid retroareolar region of the left breast. This was demonstrated to be a small cyst on prior sonogram. No other significant abnormalities are identified. There has been no significant change since the prior study. BI/SCREEN MAMM (CAD) W/NICOLE BILAT IMPRESSION: Stable bilateral screening mammogram. Yearly follow-up mammogram recommended. (A) ASSESSMENT CATEGORY: BIRADS Category 2: Benign. A letter regarding these results will be sent to the patient by the facility within 30 days. Approximately 10% of breast cancers are not detected by mammography. A normal mammogram should not delay biopsy of a clinically suspicious abnormality. [id number] Electronically Signed: Roland Christiansen, at 11:19 EST , Service support ,
== END ==
PROVIDERS: Family Provider Family Medicine; PCP Family Medicine; Referring Provider Family Medicine; Visit Provider Family Medicine
DX: Z00.00 Encounter for general adult medical examination without abnormal findings (principal); Z12.31 Encounter for screening mammogram for malignant neoplasm of breast
CPT/HCPCS: 77063; 77067

== ENCOUNTER → 2019-10-13 10:20 | Outpatient (CLI) | payer MEDICARE, OTHER, SELFPAY ==
[2019-10-13 12:48] LABS: ALB/GLOB Ratio 1.2 RATIO (0.9-2.4); AST(SGOT) 27 U/L (15-37); Alanine Aminotransfer ALT/SGPT 44 U/L (13-56); Albumin, Serum 4.2 g/dL (3.2-5.0); Alkaline Phosphatase 90 U/L (45-117); Anion Gap 6 (5-15); BUN 22 mg/dL (7-18); BUN/Creat Ratio 20.6 RATIO (10-20); Calcium,Total 9.8 mg/dL (8.5-10.1); Chloride 101 mmol/L (98-107); Cholesterol 131 mg/dL (200); Creatinine, Serum 1.07 mg/dL (0.55-1.02); EST Glomerular Filtration Rate 55 mL/min (>60); Est Glom Filt Rate - Afr Amer 66 mL/min (>60); Globulin 3.5 g/dL (2.2-4.2); Glucose 112 mg/dL (74-106); High Density Lipoprotein 56 mg/dL; Potassium 3.9 mmol/L (3.5-5.1); Protein, Total 7.7 g/dL (6.4-8.2); Sodium Level 137 mmol/L (136-145); Thyroid Stim Hormone (TSH) 1.76 uIU/mL (0.358-3.74); Triglycerides 119 mg/dL; Very Low Density Lipoprotein 24 mg/dL (5-40)
== END ==
PROVIDERS: PCP Family Medicine; Referring Provider Family Medicine; Visit Provider Family Medicine
DX: E11.9 Type 2 diabetes mellitus without complications (principal)
CPT/HCPCS: 36415; 80053; 80061; 84443

== ENCOUNTER → 2020-02-02 11:01 | Outpatient (CLI) | payer MEDICARE, OTHER, SELFPAY ==
[2020-02-02 12:50] LABS: Anion Gap 8 (5-15); BUN 21 mg/dL (7-18); BUN/Creat Ratio 19.8 RATIO (10-20); Calcium,Total 9.3 mg/dL (8.5-10.1); Chloride 106 mmol/L (98-107); Creatinine, Serum 1.06 mg/dL (0.55-1.02); EST Glomerular Filtration Rate 55 mL/min (>60); Est Glom Filt Rate - Afr Amer 67 mL/min (>60); Glucose 109 mg/dL (74-106); Sodium Level 140 mmol/L (136-145)
== END ==
PROVIDERS: PCP Family Medicine; Visit Provider Family Medicine
DX: N18.9 Chronic kidney disease, unspecified (principal)
CPT/HCPCS: 36415; 80048

== ENCOUNTER → 2020-07-19 11:24 | Outpatient (CLI) | payer MEDICARE, OTHER, SELFPAY ==
[2020-07-19 15:54] LABS: Anion Gap 7 (5-15); BUN 21 mg/dL (7-18); BUN/Creat Ratio 18.9 RATIO (10-20); Calcium,Total 9.3 mg/dL (8.5-10.1); Chloride 103 mmol/L (98-107); Cholesterol 132 mg/dL (200); Creatinine, Serum 1.11 mg/dL (0.55-1.02); EST Glomerular Filtration Rate 52 mL/min (>60); Est Glom Filt Rate - Afr Amer 63 mL/min (>60); Glucose 114 mg/dL (74-106); High Density Lipoprotein 65 mg/dL; Potassium 3.9 mmol/L (3.5-5.1); Sodium Level 138 mmol/L (136-145); Thyroid Stim Hormone (TSH) 1.64 uIU/mL (0.358-3.74); Triglycerides 122 mg/dL; Very Low Density Lipoprotein 24 mg/dL (5-40)
[2020-07-19 17:30] LABS: Erythrocyte Sedimentation Rate 21 mm/hr (0-30)
== END ==
PROVIDERS: PCP Family Medicine; Referring Provider Family Medicine; Visit Provider Family Medicine
DX: E11.9 Type 2 diabetes mellitus without complications (principal); M13.0 Polyarthritis, unspecified; I10 Essential (primary) hypertension
CPT/HCPCS: 36415; 80048; 80061; 84443; 85652

== ENCOUNTER → 2020-09-20 11:08 | Outpatient (CLI) | payer MEDICARE, OTHER, SELFPAY ==
--- NOTE | 2020-09-20 11:13 | RAD_ITS ---
STUDY: X-RAY - ABDOMEN/PELVIS REASON FOR EXAM: Female, 65 years old. hematuria TECHNIQUE: Single AP view of the abdomen / pelvis. COMPARISON: None. FINDINGS: Normal visualized lung bases. There is an unremarkable bowel gas pattern. There is no demonstrated free abdominal air. The visualized liver, spleen and kidneys are grossly normal in size and morphology. Surgical clips project left lateral to the lumbar spine. There are diffuse degenerative changes of the visualized lumbar spine. RAD/Abdomen Single View IMPRESSION: 1. No suspicious intra-abdominal calcifications. Apparent left nephrectomy. Electronically Signed: Андрей Ponce MD ([facility]) at 13:17 EST , Service support ,
[2020-09-20 12:36] LABS: Absolute Lymphocyte Count 1.54 X10^3/uL (0.83-4.51); Basophil# 0.06 X10^3/uL; Basophil% 0.8 % (0-1); Eosinophil# 0.11 X10^3/uL; Eosinophils% 1.5 % (0-5); Hemoglobin 14.2 g/dL (12.0-15.0); Lymphocyte # 1.54 X10^3/ul (4.0); Lymphocyte % 21.3 % (19-41); Mean Corp Hgb Conc 32.3 g/dL (32-36); Mean Corpuscular Volume 86.6 fL (81-99); Mean Platelet Vol. 9.7 fl (6.2-12.0); Monocyte# 0.45 X10^3/uL; Monocyte% 6.2 % (0-10); NRBC Flagged by Analyzer 0 % (0-5); Neutrophil # 5.03 X10^3/uL (2.7-7.7); Neutrophil % 69.6 % (47-70); Platelet Count 210 K/mm3 (150-450); RBC Distribution Width CV 14.4 % (11.6-14.6); RBC Distribution Width SD 46.4 fl (35.1-43.9); Red Blood Count 5.08 M/mm3 (4.2-5.4); White Blood Count 7.2 K/mm3 (4.4-11.0)
[2020-09-20 12:50] LABS: Anion Gap 9 (5-15); BUN 19 mg/dL (7-18); BUN/Creat Ratio 18.3 RATIO (10-20); Calcium,Total 9.5 mg/dL (8.5-10.1); Chloride 103 mmol/L (98-107); Creatinine, Serum 1.04 mg/dL (0.55-1.02); EST Glomerular Filtration Rate 56 mL/min (>60); Est Glom Filt Rate - Afr Amer 68 mL/min (>60); Glucose 123 mg/dL (74-106); Potassium 3.7 mmol/L (3.5-5.1); Sodium Level 138 mmol/L (136-145)
== END ==
PROVIDERS: PCP Family Medicine; Referring Provider Family Medicine; Visit Provider Family Medicine
DX: I10 Essential (primary) hypertension (principal); R31.9 Hematuria, unspecified
CPT/HCPCS: 36415; 74018; 80048; 81001; 85025; 87086

== ENCOUNTER → 2020-09-22 13:43 | Outpatient (CLI) | payer MEDICARE, OTHER, SELFPAY | PROVIDERS: PCP Family Medicine; Referring Provider Family Medicine; Visit Provider Family Medicine | DX: R31.9 Hematuria, unspecified (principal) | CPT/HCPCS: 87077; 87086; 87088; 87186 ==

== ENCOUNTER → 2020-09-26 09:00 | Outpatient (CLI) | payer MEDICARE, OTHER, SELFPAY ==
--- NOTE | 2020-09-26 09:02 | US_ITS ---
STUDY: RENAL ULTRASOUND - COMPLETE REASON FOR EXAM: Female, 65 years old. Hematuria history of left nephrectomy TECHNIQUE: Ultrasound evaluation of the kidneys was performed with real-time and static lugo-scale imaging. COMPARISON: None. FINDINGS: RIGHT KIDNEY: Normal location of the right kidney, which is normal in size. The right kidney measures 13.6 x 7.0 x 6.1 cm. There is a normal cortex of the right kidney. The renal cortex measures 1.7 cm. The right renal cyst measuring 1.3 x 1.9 x 1.4 cm. There are no right renal calculi. There is no right hydronephrosis. DISTAL RIGHT URETER: There is non-visualization of the distal right ureter. There is no demonstrated right ureterovesical junction calculus. There is a visualized right ureteral jet. Left kidney is been surgically removed. There is incidental visualization of hepatic steatosis. BLADDER: The distended urinary bladder has a volume of 109.0 ml. The wall of the bladder measures up to 9 mm. There is no demonstrated mass within the urinary bladder. There are no demonstrated bladder calculi. US/Kidney and Bladder IMPRESSION: Bladder wall thickening suspicious for cystitis. No visualized hydronephrosis. Benign-appearing right renal cysts. Electronically Signed: Ivelisse Billy MD at 0:26 EST Tel , Service support ,
== END ==
PROVIDERS: PCP Family Medicine; Referring Provider Family Medicine; Visit Provider Family Medicine
DX: R31.9 Hematuria, unspecified (principal)
CPT/HCPCS: 76770

== ENCOUNTER → 2020-10-06 12:09 | Outpatient (CLI) | payer MEDICARE, OTHER, SELFPAY ==
--- NOTE | 2020-10-06 12:11 | BI_ITS ---
MAMMOGRAPHY - BILATERAL SCREENING REASON FOR EXAM: Female, 65 years old. Routine annual screening examination. PERTINENT HISTORY: Sister with breast cancer. TECHNIQUE: Digital bilateral breast nicole (3D mammographic acquisition) in the CC and MLO projections. 2-D mediolateral oblique (MLO) and craniocaudad (CC) views of both breasts were obtained. CAD: Full Field Digital Mammography with Computer Added Detection was performed. COMPARISON: Comparison is made with prior examination dated 09/29/2019 and 09/24/2018. FINDINGS: Breast Composition: There are scattered areas of fibroglandular density. There are no dominant masses or suspicious calcifications. Stable 7 mm x 5 mm well-defined nodule in the mid retroareolar region of the left breast. This was demonstrated to be a small cyst on prior sonogram. Stable benign appearing left axillary lymph nodes. No other significant abnormalities are identified. There has been no significant change since the prior study. BI/SCRN MAMM (CAD)W/NICOLE BILAT IMPRESSION: Stable bilateral screening mammogram. Yearly follow-up mammogram recommended. (A) ASSESSMENT CATEGORY: BIRADS Category 2: Benign. A letter regarding these results will be sent to the patient by the facility within 30 days. Approximately 10% of breast cancers are not detected by mammography. A normal mammogram should not delay biopsy of a clinically suspicious abnormality. [id number] Electronically Signed: Roland Christiansen MD at 13:07 EST , Service support ,
--- NOTE | 2020-10-06 12:15 | BD_ITS ---
STUDY: DUAL ENERGY X-RAY ABSORPTIOMETRY / DXA REASON FOR EXAM: Female, 65 years old. Age of flory 41. Pat is 277.7# and 65 and quot; a loss of 1 and quot; per patient. Past hx of using a thyroid medication for a very short time and a long time ago. Past hx of smoking for 30 yrs 15 cigs a day. Type II diabetic and takes metformin. Pat takes HCTZ and a multi-vit. Does not exercise. Hx of a repair to a ruptured disk in lower back. TECHNIQUE: Bone Mineral Density (BMD) measurements of lumbar spine and bilateral hips were obtained. COMPARISON: Comparison is made with prior study dated 04/27/2008. FINDINGS: Lumbar Spine (L1-L4): g/cm2 (1.603) / T-score (3.5) / Z-score (5.1) Findings are suggestive of normal bone density with a low fracture risk. Left Femur Total: g/cm2 (1.391) / T-score (3.0) / Z-score (4.3) Left Femoral Neck: g/cm2 (1.124) / T-score (0.6) / Z-score (2.2) Right Femur Total: g/cm2 (1.355) / T-score (2.8) / Z-score (4.1) Right Femoral Neck: g/cm2 (1.132) / T-score (0.7) / Z-score (2.2) The T-Scores on the most recent prior examination were: Lumbar Spine (L1-L4): There has been worsening of bone density since the previous examination. Left Femur Total: which represents a worsening of 2.5%. Right Femur Total: which represents an improvement of 0.7%. BD/Dexa Bone Density Study IMPRESSION: The patient is considered normal as outlined below according to World [employer] Organization (WHO) criteria with a low fracture risk. There has been worsening of bone density since the previous examination. Reference Information: The T-score is the number of standard deviations above or below the standard which is normal for young adults at their peak bone mineral density. The World Health Organization (WHO) interprets the T-scores as follows: Above -1 Normal bone density Between -1 and -2.5 Osteopenia Equal to / or below -2.5 Osteoporosis As a practical clinical guideline, osteopenia may be graded as follows: Mild -1 through -1.5 Moderate -1.6 through -2.0 Severe -2.1 through -2.4 The Z-score is the number of standard deviations above or below age-matched controls. A Z-score of less than -1.5 would be considered abnormal. References: 1. NIH Osteoporosis and Related Bone Diseases www osteo.org 2. International Society for Clinical Densitometry www iscd.org 3. National Osteoporosis Foundation www nof.org Electronically Signed: Roland Christiansen MD at 13:20 EST , Service support ,
== END ==
PROVIDERS: PCP Family Medicine; Referring Provider Family Medicine; Visit Provider Family Medicine
DX: Z12.31 Encounter for screening mammogram for malignant neoplasm of breast (principal); Z78.0 Asymptomatic menopausal state
CPT/HCPCS: 77063; 77067; 77080

== ENCOUNTER → 2021-03-02 17:26 | Outpatient (CLI) | payer MEDICARE, OTHER, SELFPAY | PROVIDERS: PCP Family Medicine; Visit Provider Family Medicine | DX: R30.0 Dysuria (principal) | CPT/HCPCS: 87086; 87088 ==

== ENCOUNTER → 2021-03-06 06:19 | Outpatient (CLI) | payer MEDICARE, OTHER, SELFPAY ==
--- NOTE | 2021-03-06 10:04 | STRESSREP ---
Stress Test Report Exercise and pharmacologic myocardial perfusion stress test. 65-year-old lady with a history of exertional shortness of breath. Stress protocol: Resting EKG demonstrates sinus rhythm with a rate of 61 bpm no intervals are noted resting blood pressure is 138/90 mmHg. The patient exercised according to the regular Elliot protocol for a total duration of 1 minute and 31 seconds. Patient got fatigued and needed to be switched over to a pharmacologic myocardial perfusion stress test. 0.4 mg of regadenoson was infused per usual protocol followed by rapid intravenous saline flush injection continuous EKG monitoring was performed. At rest there were no ST or T wave changes noted to suggest abnormal flow reserve and at peak infusion nonspecific ST changes were noted with did not meet the criteria for ischemia. The final blood pressure was 136/84 mmHg. Myocardial perfusion protocol. 15.0 mCi of technetium 99m sestamibi was injected at rest. 0.4 mg of regadenoson was infused per usual protocol. At peak infusion 44.4 mCi of technetium 99m sestamibi was injected stress images were obtained stress and rest images were reconstructed and compared in the short axis vertical long and horizontal long axis. Gated images were also obtained to Perfusion SPECT analysis: Review of the stress images demonstrate normal uptake of tracer noted in lateral wall, septum, inferior wall, and reduction of perfusion noted in the mid anterior wall. The resting images demonstrate an improvement in all areas of the myocardium. The above is suggestive of a mild amount of mid anterior ischemia. No previous infarct is noted. Gated SPECT analysis: The gated ejection fraction is 73%. Conclusion: Abnormal pharmacologic myocardial perfusion stress test with mid anterior ischemia. Poor exercise capacity noted. Preserved ejection fraction.
== END ==
PROVIDERS: PCP Family Medicine; Referring Provider Family Medicine; Visit Provider Family Medicine
DX: R06.00 Dyspnea, unspecified (principal)
CPT/HCPCS: 78452; 93017; A9500; A4216; J2785

== ENCOUNTER 2021-03-13 07:55 | Day surgery (SDC) | payer MEDICARE, OTHER, SELFPAY ==
[2021-03-07 12:39] VITALS: BMI 45.3
--- NOTE | 2021-03-07 16:20 | RAD_ITS ---
STUDY: X-RAY CHEST REASON FOR EXAM: Female, 65 years old. cad TECHNIQUE: PA and lateral views of the chest. COMPARISON: 03/30/2019 FINDINGS: The lungs are clear and expanded. There is no demonstrated pleural abnormality. Normal size heart. Normal mediastinum and kim. Normal visualized pulmonary arteries. Normal visualized aortic arch and descending thoracic aorta. Normal visualized thoracic spine. Normal visualized ribs, clavicles, and shoulders. There is no demonstrated abnormality of the visualized soft tissue structures of the upper abdomen. RAD/Chest PA and Lateral IMPRESSION: Normal x-ray examination of the chest. Electronically Signed: Unruly Christianson MD at 17:04 EDT Tel , Service support ,
[2021-03-07 17:26] LABS: Absolute Lymphocyte Count 1.62 X10^3/uL (0.83-4.51); Basophil# 0.05 X10^3/uL; Basophil% 0.7 % (0-1); Eosinophil# 0.14 X10^3/uL; Eosinophils% 1.9 % (0-5); Hematocrit 42.9 % (37-47); Hemoglobin 13.7 g/dL (12.0-15.0); Lymphocyte # 1.62 X10^3/ul (0.83-4.51); Lymphocyte % 22.1 % (19-41); Mean Corp Hgb Conc 31.9 g/dL (32-36); Mean Corpuscular Hgb 28.4 pg (27.0-32.0); Mean Platelet Vol. 9.8 fl (6.2-12.0); Monocyte# 0.55 X10^3/uL; Monocyte% 7.5 % (0-10); NRBC Flagged by Analyzer 0 % (0-5); Neutrophil # 4.95 X10^3/uL (2.7-7.7); Neutrophil % 67.4 % (47-70); Platelet Count 208 K/mm3 (150-450); RBC Distribution Width CV 14.3 % (11.6-14.6); RBC Distribution Width SD 46.3 fl (35.1-43.9); Red Blood Count 4.82 M/mm3 (4.2-5.4); White Blood Count 7.3 K/mm3 (4.4-11.0)
[2021-03-07 18:00] LABS: Anion Gap 6 (5-15); BUN 25 mg/dL (7-18); BUN/Creat Ratio 22.3 RATIO (10-20); Calcium,Total 9.7 mg/dL (8.5-10.1); Chloride 106 mmol/L (98-107); Creatinine, Serum 1.12 mg/dL (0.55-1.02); EST Glomerular Filtration Rate 52 mL/min (>60); Est Glom Filt Rate - Afr Amer 62 mL/min (>60); Glucose 102 mg/dL (74-106); Potassium 3.9 mmol/L (3.5-5.1); Sodium Level 142 mmol/L (136-145)
[2021-03-10 08:38] VITALS: BMI 46.0
--- NOTE | 2021-03-13 08:08 | ECHOD_ITS ---
Reason For Study: Dyspnea/SOB Procedure This was a 2D Doppler, Color Flow transthoracic echocardiogram. Did not use Definity, patient has one kidney. Exam performed in department. Left Ventricle Normal LV size. Left ventricular systolic function is normal. The estimated ejection fraction is 60 %. Stage 1 diastolic dysfunction. No regional wall motion abnormalities noted. Right Ventricle Normal RV size. Normal systolic function. Tricuspid Valve Normal tricuspid valve. Mild (1+) tricuspid valve insufficiency. Pulmonary artery systolic pressure is 34 mmHg. Aortic Valve Trisinus/trileaflet aortic valve. Mild aortic stenosis. Pulmonic Valve Normal pulmonic valve. Great Vessels Calcified aortic root. The pulmonary artery is normal size. Normal inferior vena cava. Pericardium/Pleural No pericardial effusion. MMode/2D Measurements & Calculations LVIDd: 4.5 cm IVSd: 1.1 cm Ao root diam: 3.1 cm LVIDs: 2.8 cm LVPWd: 1.2 cm RVDd: 2.7 cm FS: 38.8 % LAV(MOD-bp): 36.7 ml LA dimension(2D): 4.3 cm LA A4 area: 16.3 cm2 LAV(MOD-bp) Indexed: 16.0 ml/m2 LAV(MOD-sp2): 31.9 ml LAV(MOD-sp4): 38.4 ml RA A4 area: 14.7 cm2 Doppler Measurements & Calculations MV E max srinivasan: 86.1 cm/sec Lat Peak E' Srinivasan: 6.6 cm/sec Med Peak E' Srinivasan: 6.3 cm/sec MV A max srinivasan: 115.9 cm/sec E/E' lat: 13.1 E/E' med: 13.6 MV E/A: 0.74 Ao V2 max: 217.6 cm/sec LV V1 max: 133.6 cm/sec PA V2 max: 119.4 cm/sec Ao max P.9 mmHg LV V1 max P.1 mmHg Ao V2 mean: 135.4 cm/sec LV V1 mean P.8 mmHg Ao mean P.5 mmHg LV V1 mean: 93.0 cm/sec Ao V2 VTI: 44.3 cm LV V1 VTI: 27.8 cm TR max srinivasan: 267.2 cm/sec TR max P.6 mmHg ECHO/Echo Complete Interpretation Summary Normal LV size. Left ventricular systolic function is normal. The estimated ejection fraction is 60 %. Stage 1 diastolic dysfunction. Pulmonary artery systolic pressure is 34 mmHg. Calcified aortic root. Ordering Physician: Dominguez Cheema Referring Physician: Pollo Easton Performed By: Iman Riggins, RAF, RVT
--- NOTE | 2021-03-13 10:16 | CL.D_ITS ---
Patient Name: CHRIS ABREU Study Date: 03/13/2021 Performing: Dominguez Cheema MD Ht: 64.96 inches 165 cm : 1955 Wt: 277.78 lbs 126 kg Age: 65 Gender: female BSA: 2.27 PROCEDURE(S) PERFORMED SP29-[facility] CLINICAL PROFILE AND INDICATIONS Indications: Suspected CAD Heart Failure: None Stress/Imaging Date: 03/06/21ress Test with SPECT MPI: Positive Intermediate Risk CAD Presentations: Symptom unlikely to be ischemic. CONCLUSIONS No significant obstructive coronary disease. RECOMMENDATIONS Medical therapy DESCRIPTION OF PROCEDURE The patient arrived to the procedure lab. The risks and benefits of the procedure as well as a full d escription of our services here and current unavailability of surgical backup were fully explained to the patient and/or their significant other prior to the catheterization. The Timeout was completed, verifying the correct patient and procedure. The patient's procedural site was prepped and draped in the usual fashion. Local anesthetic was given subcutaneously to right radial region with Lidocaine 2% . Using a modified Seldinger technique, arterial access was obtained via the right radial artery, a 6 Fr sheath was inserted. Left Coronary Artery selective angiography was performed in multiple views u sing a 5 Fr. 4.0 Sun catheter. Right Coronary Artery selective angiography was then performed in mu ltiple views using a 5 Fr. 4.0 Sun catheter.The arterial sheath was pulled and a TR Band was applie d for hemostasis 10ml air CORONARY ANGIOGRAPHY DOMINANCE: Right Dominant LEFT HEART ASSESSMENT Left Ventricular Ejection Fraction: by Echo 60 % Normal LV wall motion Normal Left Ventricular systolic function LEFT MAIN: Mild calcification, No significant disease noted LEFT ANTERIOR DESCENDING ARTERY: No significant disease noted CIRCUMFLEX ARTERY: OSTIAL CIRC: 40 % Stenosis RIGHT CORONARY ARTERY: MID RCA: 40 % Stenosis COMPLICATIONS No Complications PROCEDURE MEDICATIONS Versed 1 mg IV Fentanyl 50 mcg IV Versed 1 mg IV Oxygen: 2 L/min via nasal cannula Heparin given IA 03/13/2021 09:55:43 Verapamil 2.5mg, Ntg 100mcgs, 2000 units of Heparin given IA 03/13/2021 09:55:43 SUMMARY OF HEMODYNAMIC DATA Time AIR REST ECG 08:30:10 AO 142/68 (98) SA 10:01:37 Signed By Dominguez Cheema MD On 03/13/2021 10:15:14 Dominguez Cheema MD
== END 2021-03-13 11:40 | disposition home or self-care (01) ==
PROVIDERS: PCP Family Medicine; Referring Provider Internal Medicine Cardiovascular Disease; Visit Provider Internal Medicine Cardiovascular Disease
DX: R07.9 Chest pain, unspecified (principal); R06.02 Shortness of breath; R94.39 Abnormal result of other cardiovascular function study; I10 Essential (primary) hypertension; E78.5 Hyperlipidemia, unspecified; E11.9 Type 2 diabetes mellitus without complications; Z82.49 Family history of ischemic heart disease and other diseases of the circulatory system; Z87.891 Personal history of nicotine dependence
CPT/HCPCS: 36415; 71046; 80048; 85025; 93306; 93454; 99152; 99153; J7040; Q9967; C1769; C1894

== ENCOUNTER → 2021-05-17 09:54 | Outpatient (CLI) | payer MEDICARE, OTHER, SELFPAY ==
[2021-05-17 11:29] LABS: Anion Gap 8 (5-15); BUN 22 mg/dL (7-18); BUN/Creat Ratio 23.5 RATIO (10-20); Calcium,Total 9.8 mg/dL (8.5-10.1); Chloride 105 mmol/L (98-107); Creatinine, Serum 0.94 mg/dL (0.55-1.02); EST Glomerular Filtration Rate 63 mL/min (>60); Est Glom Filt Rate - Afr Amer 77 mL/min (>60); Glucose 148 mg/dL (74-106); Sodium Level 137 mmol/L (136-145)
== END ==
PROVIDERS: PCP Family Medicine; Visit Provider Nurse Practitioner Gerontology
DX: R06.00 Dyspnea, unspecified (principal)
CPT/HCPCS: 36415; 80048; 83880

== ENCOUNTER 2021-11-30 08:31 | Outpatient (CLI) | payer MEDICARE, OTHER, SELFPAY ==
--- NOTE | 2021-11-30 13:19 | PFTCOMP_ITS ---
COMPLETE PULMONARY FUNCTION TEST INTERPRETATION Brief HPI: Patient is a 66 year old female, currently under the care of Renetta Sanchez, who presents to [facility] for complete pulmonary function tests secondary to diagnosis of dyspnea. Respiratory therapist reports good effort and reproducible results. Interpretation: Forced expiration spirometry shows no large airways obstructive ventilatory defect with an FEV1 of 70% predicted. There is no significant bronchodilator response by strict ATS criteria. Spirograms are of good quality and plateau slowly, indicating slowly emptying areas of the lungs. The respiratory flow volume loop shows decreased expiratory flow rates at high lung volumes consistent with small airways obstruction. Lung volumes by body plethysmography show a normal total lung capacity at 4.92 L, 94% predicted. All other lung volumes are within normal limits. Diffusion capacity by carbon monoxide is decreased at 41% predicted. The airway resistance is normal. No previous pulmonary function tests were available for review. Impression: Isolated reduction in diffusion capacity consistent with a pulmonary vascular disorder. Consider walking oximetry if not completed previously
== END 2021-11-30 23:59 | disposition home or self-care (01) ==
LOC: PSN 08:34
PROVIDERS: PCP Family Medicine; Referring Provider Nurse Practitioner Gerontology; Visit Provider Nurse Practitioner Gerontology
DX: R06.00 Dyspnea, unspecified (principal)
CPT/HCPCS: 94060; 94726; 94729

== ENCOUNTER → 2022-01-29 | Outpatient (CLI) | payer MEDICARE, OTHER, SELFPAY ==
--- NOTE | 2022-01-29 10:08 | ECHOCS_ITS ---
Reason For Study: PHTN Procedure This was a 2D Doppler, Color Flow transthoracic echocardiogram. The study was technically difficult. DID NOT USE DEFINITY. PT ONLY HAS 1 KIDNEY. Exam performed in department. Left Ventricle Normal LV size. Left ventricular systolic function is normal. The estimated ejection fraction is 55 %. Stage 1 diastolic dysfunction. No regional wall motion abnormalities noted. Right Ventricle Normal RV size. Normal systolic function. Mitral Valve Normal mitral valve. Tricuspid Valve Normal tricuspid valve. Mild tricuspid valve insufficiency. Pulmonary artery systolic pressure is 24 mmHg. Great Vessels Normal aortic root. Pericardium/Pleural No pericardial effusion. MMode/2D Measurements & Calculations LVIDd: 4.4 cm IVSd: 1.1 cm Ao root diam: 2.9 cm LVIDs: 2.1 cm LVPWd: 0.87 cm RVDd: 3.0 cm FS: 52.9 % LAV(MOD-sp2): 73.9 ml SV(MOD-sp4): 34.3 ml LVAd ap4: 21.3 cm2 LVLd ap4: 6.8 cm EDV(MOD-sp4): 53.9 ml EDV(sp4-el): 56.7 ml LVAs ap4: 10.8 cm2 LVLs ap4: 5.2 cm ESV(MOD-sp4): 19.6 ml ESV(sp4-el): 18.9 ml EF(MOD-sp4): 63.6 % EF(sp4-el): 66.7 % SV(sp4-el): 37.8 ml LA A4 area: 17.2 cm2 LA dimension(2D): 3.7 cm RA A4 area: 12.1 cm2 Doppler Measurements & Calculations MV E max srinivasan: 109.6 cm/sec Lat Peak E' Srinivasan: 6.8 cm/sec Med Peak E' Srinivasan: 4.8 cm/sec MV A max srinivasan: 143.5 cm/sec E/E' lat: 16.2 E/E' med: 22.6 MV E/A: 0.76 Ao V2 max: 201.1 cm/sec LV V1 max: 139.7 cm/sec TR max srinivasan: 224.8 cm/sec Ao max P.2 mmHg LV V1 max P.8 mmHg TR max P.2 mmHg ECHO/Echo Complete W/ Contrast Interpretation Summary Normal LV size. Left ventricular systolic function is normal. The estimated ejection fraction is 55 %. Stage 1 diastolic dysfunction. Pulmonary artery systolic pressure is 24 mmHg. Ordering Physician: Elliot Ennis Performed By: Brianna Mclain RCS
== END | disposition home or self-care (01) ==
LOC: CVS 10:04
PROVIDERS: PCP Family Medicine; Visit Provider Internal Medicine Critical Care Medicine
DX: R06.00 Dyspnea, unspecified (principal)
CPT/HCPCS: 93306; C8929

== ENCOUNTER → 2022-02-14 | Outpatient (CLI) | payer MEDICARE, OTHER, SELFPAY ==
[2022-02-14 12:30] VITALS: PULSE 68; PULSE 74; PULSE 82; PULSE 85; PULSE 89; PULSE 90; PULSE 91; O2SAT 92; O2SAT 93; O2SAT 94; O2SAT 96
--- NOTE | 2022-02-15 12:30 | PCM.PSN.6M ---
PSN 6 Minute Walk Test 6 Minute Walk Test 6 Minute Walk Test: 6 Minute Walk Test PSN:6-Minute Walk Test Start: 02/14/22 12:38 Freq: Status: Active Protocol: [id number] Document 02/14/22 12:30 EW (Rec: 02/14/22 12:48 EW [id number]) 6 Minute Walk Test Date Performed 02/14/22 Time Performed 12:30 Height 5 ft 8 in Weight: 118.388 kg Weight in Pounds 261.[address]: Elliot Ennis Assistive device used: None Pre-test Oxygen Delivery Method Room Air Pulse Ox (%) 96 Pulse Rate (60-100 beats/min) 68 Dyspnea Walter Scale (0-10) 1 Exertion Walter Scale (6-20) 8 1st minute Oxygen Delivery Method Room Air Pulse Ox (%) 93 Pulse Rate (60-100 beats/min) 85 2nd minute Oxygen Delivery Method Room Air Pulse Ox (%) 92 Pulse Rate (60-100 beats/min) 82 3rd minute Oxygen Delivery Method Room Air Pulse Ox (%) 92 Pulse Rate (60-100 beats/min) 89 4th minute Oxygen Delivery Method Room Air Pulse Ox (%) 92 Pulse Rate (60-100 beats/min) 91 5th minute Oxygen Delivery Method Room Air Pulse Ox (%) 92 Pulse Rate (60-100 beats/min) 90 6th minute Oxygen Delivery Method Room Air Pulse Ox (%) 92 Pulse Rate (60-100 beats/min) 91 Post-test Oxygen Delivery Method Room Air Pulse Ox (%) 94 Pulse Rate (60-100 beats/min) 74 Dyspnea Walter Scale (0-10) 3 Exertion Walter Scale (6-20) 13 Reported Symptoms Increased Work of Breathing Full Laps Walked 15 Partial Lap, Number of Tiles Walked 33 Total Distance Walked (ft) 918 Interpretation Interpretation: The patient ambulated 918 feet over the course of 6 minutes beginning on room air without assistive devices. Pretesting oxygen saturation was noted to be 96% on room air. With ambulation, the niranjan oxygen saturation was 92%. There was no significant exertional oxygen desaturation. Recommendations Recommendations: There is no indication for the use of supplemental oxygen at this time.
== END | disposition home or self-care (01) ==
PROVIDERS: PCP Family Medicine; Referring Provider Internal Medicine Critical Care Medicine; Visit Provider Internal Medicine Critical Care Medicine
DX: R06.00 Dyspnea, unspecified (principal)
CPT/HCPCS: 94618

== ENCOUNTER → 2022-04-17 | Outpatient (CLI) | payer MEDICARE, OTHER, SELFPAY | END | disposition home or self-care (01) | LOC: SL 09:33 | PROVIDERS: PCP Family Medicine; Referring Provider Internal Medicine Critical Care Medicine; Visit Provider Internal Medicine Critical Care Medicine | DX: G47.33 Obstructive sleep apnea (adult) (pediatric) (principal) | CPT/HCPCS: 98960; G0463 ==

== ENCOUNTER → 2025-03-22 | Outpatient (CLI) | payer MEDICARE, OTHER, SELFPAY | END | disposition home or self-care (01) | LOC: CVS 13:52 | PROVIDERS: PCP Family Medicine; Referring Provider Nurse Practitioner Gerontology; Visit Provider Nurse Practitioner Gerontology | DX: R60.0 Localized edema (principal); R06.09 Other forms of dyspnea; R01.1 Cardiac murmur, unspecified; M79.89 Other specified soft tissue disorders | CPT/HCPCS: 93306 ==

== ENCOUNTER → 2025-04-15 | Outpatient (CLI) | payer MEDICARE, OTHER, SELFPAY ==
--- OUTSIDE RECORDS SUMMARY | 2025-04-15 06:05 | XMS RPT_ITS | CCD ---
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 Kit Easton Primary Care Provider [phone] Dr. Kit Easton Referring Provider Dr. Dominguez Cheema Attending Provider Daniel CREAM DUMPER, CREAM DUMPER-C Renetta Attending Provider Dr. Pedro Jacob Primary Care Provider Daniel WHITNEY, CREAM DUMPER-C Renetta Referring Provider Daniel WHITNEY, CREAM DUMPER-C Renetta Other Provider Dr. Elliot Ennis Attending Provider Pedro Jacob MD Primary Care Provider Dr. Kit Easton Referring Provider Dr. Elliot Ennis Referring Provider Dr. Dominguez Cheema Attending Provider Dr. Elliot Ennis Other Provider Dr. Reginald Otero Attending Provider Pedro Jacob MD Primary Care Provider Pedro Jacob MD Primary Care Provider Pedro Jacob MD Primary Care Provider ZAIDA MIGUEL Attending Unavailable ZAIDA MIGUEL Admitting Unavailable PEDRO JACOB Primary Care Unavailable Pedro Jacob MD Primary Care Provider Haagen HIGHWAY TECHNICIAN.BEHAVIORAL CONSULTANT, Myrna Unavailable Suppan [address]IGHW[address] TECHNICIAN.BEHAVIORAL CONSULTANT, Anika A Unavailable [phone] TECHNICIAN.BEHAVIORAL CONSULTANT, Anika A Unavailable Cecil GILLETTE, Dr. Vasquez Primary Care Provider [phone] Daniel CREAM DUMPER-C, Renetta Attending Provider Daniel CREAM DUMPER-C, Renetta Referring Provider [phone] Dr. Dominguez Cheema MD Attending Provider CECIL, PEDRO J Primary Care Unavailable YOKASTACHEMA P Referring Unavailable YOKASTASTACIEEL P Attending Unavailable CECIL, PEDRO J Primary Care Unavailable CECIL, PEDRO J Referring Unavailable CECIL, PEDRO J Attending Unavailable CECIL, PEDRO J Primary Care Unavailable CECIL, PEDRO J Primary Care Unavailable CECIL, PEDRO J Referring Unavailable CECIL, PEDRO J Primary Care Unavailable CECIL, PEDRO J Referring Unavailable CECIL, PEDRO J Primary Care Unavailable CECIL, PEDRO J Referring Unavailable EVELYN RODRIGUEZ Attending Unavailable CECIL, PEDRO J Primary Care Unavailable CECIL, PEDRO J Referring Unavailable CHEMA TEMPLETON Attending Unavailable CECIL, PEDRO J Primary Care Unavailable BONIFACIO, OLGA Referring Unavailable BONIFACIO, OLGA Attending Unavailable CECIL, PEDRO J Primary Care Unavailable CECIL, PEDRO J Attending Unavailable CECIL, PEDRO J Primary Care Unavailable CECIL, PEDRO J Referring Unavailable CECIL, PEDRO J Primary Care Unavailable CECIL, PEDRO J Referring Unavailable CECIL, PEDRO J Primary Care Unavailable LINDSEY TRAYLOR Attending Unavailable CECIL, PEDRO J Primary Care Unavailable SELF Referring Unavailable LINDSEY TRAYLOR Attending Unavailable CECIL, PEDRO J Primary Care Unavailable BONIFACIO, OLGA Referring Unavailable CECIL, PEDRO J Primary Care Unavailable BONIFACIO, OLGA Referring Unavailable CECIL, PEDRO J Primary Care Unavailable CECIL, PEDRO J Primary Care Unavailable BONIFACIO, OLGA Referring Unavailable CECIL, PEDRO J Primary Care Unavailable CECIL, PEDRO J Referring Unavailable CECIL, PEDRO J Primary Care Unavailable CECIL, PEDRO J Referring Unavailable Cecil, Pedro Primary Care Unavailable Daniel WHITNEY, Renetta Attending Unavailable [place], Pedro Primary Care Unavailable Dominguez Cheema Attending Unavailable [place], Pedro Primary Care Unavailable Daniel CREAM DUMPER, Renetta Attending Unavailable Daniel CREAM DUMPER, Renetta Referring Unavailable [place], Pedro Primary Care Unavailable Daniel CREAM DUMPER, Renetta Attending Unavailable Daniel CREAM DUMPER, Renetta Referring Unavailable Cecil, Pedro Primary Care Unavailable [place], Pedro Referring Unavailable Rola Gonzalez Attending Unavailable Dominguez Cheema Attending Unavailable Pedro Jacob Primary Care Unavailable Pedro Jacob Referring Unavailable Allergies Allergy Classification Reported Allergen(s) Allergy Type Date of Onset Reaction(s) Facility Adrenergic Antagonists (1 source) carvedilol Drug Allergy 1 Intolerance [facility] Atenolol (1 source) Atenolol Drug Allergy 1 Intolerance [facility] Calcium Channel Blockers (2 sources) dilTIAZem Drug Allergy 1 Intolerance [facility] Macrolides (antibiotic) (1 source) Erythromycin Drug Allergy 7 [facility] Work Phone: Metoprolol (1 source) Metoprolol Drug Allergy 1 Intolerance [facility] Nadolol (1 source) Nadolol Drug Allergy 1 Intolerance [facility] Tetracyclines (antibiotic) (1 source) Tetracycline Drug Allergy 5 [facility] (20 sources) Atenolol; Translations: [ATENOLOL] Drug Allergy 1 Intolerance [facility] (20 sources) carvedilol; Translations: [CARVEDILOL] Drug Allergy 1 Intolerance [facility] (20 sources) dilTIAZem; Translations: [DILTIAZEM] Drug Allergy 1 Intolerance [facility] (20 sources) Erythromycin Drug Allergy 7 [facility] Work Phone: (5 sources) Lisinopril Drug Allergy 2 dry cough [facility] (20 sources) Metoprolol; Translations: [METOPROLOL] Drug Allergy 1 Intolerance [facility] (5 sources) Tetracycline Drug Allergy 2 [facility] (20 sources) Verapamil; Translations: [VERAPAMIL] Drug Allergy 1 Intolerance [facility] (5 sources) Angiotensin-conv erting enzyme inhibitor agent; Translations: [MIROSLAVA INHIBITORS] Drug Intolerance 1 Cough [facility] (20 sources) Nadolol; Translations: [NADOLOL] Drug Allergy 1 Intolerance [facility] (20 sources) Tetracycline; Translations: [TETRACYCLINE HCL (BULK)] Drug Allergy 5 Hives [facility] (20 sources) Angiotensin-conv erting enzyme inhibitor agent Drug Intolerance 1 Cough [facility] (3 sources) Erythromycin; Translations: [ERYTHROMYCIN] Drug Allergy 7 [facility] Other [facility] (1 source) carvedilol Drug Allergy 5 [facility] (1 source) dilTIAZem Drug Allergy 5 [facility] (1 source) Erythromycin Drug Allergy 5 [facility] (1 source) Lisinopril Drug Allergy 5 [facility] (1 source) Metoprolol Drug Allergy 5 [facility] (1 source) Tetracycline Drug Allergy 5 [facility] (1 source) Verapamil Drug Allergy 5 [facility] Repository Medications Current Medications Medication Drug Class(es) Dates Sig (Normalized) Sig (Original) amLODIPine 10 mg oral tablet (20 sources) Dihydropyridine Calcium Channel Josefina Start: 08-24-2021 End: 10-12-2024 take 1 tablet by mouth once daily Amlodipine 10 mg tablet Active 10 mg PO DAILY 90 3 October 12, 2024 10:59am Comment on above: Take 10 mg by mouth once daily. Going to double check dosage. aspirin 81 mg chewable tablet (20 sources) Platelet Aggregation Inhibitor, Nonsteroidal Anti-inflammatory Drug Start: 04-24-2016 take 81 mg by mouth once daily Aspirin Active 81 MG PO DAILY@0800 30 April 24, 2016 9:50am take 1 tablet by mouth once aida y aspirin, enteric coated (ASPIRIN, ENTERIC COATED) 81 mg EC tablet Take 81 mg by mouth once daily. Active Comment on above: Take 81 mg by mouth once daily. atenolol 50 mg oral tablet (20 sources) beta-Adrenergic Josefina Start: 07-05-2021 End: 01-04-2026 take 1 tablet by mouth once daily atenolol (TENORMIN) 50 mg tablet Take 1 tablet by mouth once daily. 90 tablet 3 01/04/2025 01/04/2026 Active Start: 06-02-2021 End: 07-05-2021 take 25 mg by mouth at bedtime Atenolol Discontinued 2 5 MG PO AT BEDTIME June 02, 2021 4:45pm July 05, 2021 8:52am On Hold: sweating, SOB Comment on above: Take 50 mg by mouth once daily. atorvastatin 80 mg oral tablet (20 sources) HMG-CoA Reductase Inhibitor Start: End: take 1 tablet by mouth once daily atorvastatin (LIPITOR) 80 mg tablet Take 1 tablet by mouth once daily. 90 tablet 1 10/12/2024 Active Start: 04-24-2016 End: 04-23-2023 take 1 tablet by mouth once daily atorvastatin (LIPITOR) 80 mg tablet Take 1 tablet by mouth once daily. 90 tablet 1 04/23/2023 Active Comment on above: Take 1 tablet by [facility] once daily. biotin 10 mg oral capsule (20 sources) Start: 04-23-2016 take 41320 ug by mouth once daily Biotin Active 95084 MCG PO DAILY April 23, 2016 1:10pm End: 03-16-2025 Biotin 10,000 mcg cap Take 5 ,000 mcg by mouth once daily. 03/16/2025 Discontinued (Other) Comment on above: Take 5,000 mcg by [facility] once daily. cholecalciferol 0.025 mg oral tablet (20 sources) Vitamin D Start: 04-23-20 16 take 2 tablets by mouth once daily Cholecalciferol (Vitamin D3) (Vitamin D3) 1,000 UNIT tablet Active 2000 UNIT PO DAILY April 23, 2016 1:10pm End: 03-16-2025 take 1 capsule by mouth once daily Cholecalciferol, Vitamin D3, 50 mcg (2,000 unit) cap Take 1 capsule by mouth once daily. 03/16/2025 Discontinued (Other) Cholecalciferol, Vitamin D3, (VITAMIN D-3) 2,000 unit cap Take 50 capsules by mouth. 0 Active Comment on above: Take 50 capsules by mouth. clobetasol propionate 0.0005 mg/mg topical ointment (20 sources) Corticosteroid Start: 01-05-2025 clobetasol (TEMOVATE) 0.05 % ointment Apply 1 application to affected area as directed. TO AFFECTED AREA 1-2 times a week for control of lichen sclerosis. 60 g 3 01/05/2025 Active Start: 12-27-2022 End: 01-03-2025 clobetasol (TEMOVATE) 0.05 % ointment Apply 1 application to affected area as directed. TO AFFECTED AREA 1-2 times a week for control of lichen sclerosis. 60 g 3 04/27/2024 01/03/2025 Discontinued Start: 05-17-2021 Clobetasol Act sergey 1 APPLIC TOPICAL DAILY May 17, 2021 9:02am Comment on above: Apply 1 application to affected area as directed. TO AFFECTED AREA 1-2 times a week for control of lichen sclerosis. estradiol 0.1 mg/ml vaginal cream (20 sources) Estrogen Start: End: estradiol (ESTRACE) 0.01 % (0.1 mg/gram) vaginal cream Indications: Chronic vulvitis , Postmenopausal atrophic vaginitis Use 1 g vaginally two times a week. Insert 1 gm vaginally every night x 14 nights then insert 1 gm vaginally twice weekly 42.5 g 3 07/31/2024 03/18/2026 Active fluconazole 150 mg oral tablet (10 sources) Azole Antifungal Start: 5 End: take 1 tablet by mouth once daily fluconazole (DIFLUCAN) 150 mg tablet Take 1 tablet by mouth once daily for 1 day. 1 tablet 09/25/2024 09/26/2024 Active Start: 06-23-2024 End: 08-19-2024 fluconazole (DIFLUCAN) 150 m g tablet Indications: Intertrigo of genital labia Take 1 tablet by mouth as directed. Take one tablet on Day 1, 4 and 7. 3 tablet 06/23/2024 08/19/2024 Discontinued hydroCHLOROthiazide 25 mg oral tablet (20 sources) Thiazide Diuretic Start: 04-24-2016 End: 01-03-2025 take 1 tablet by mouth once daily hydroCHLOROthiazide 25 mg tablet Take 1 tablet by mouth once daily. 90 tablet 1 01/04/2025 Active Comment on above: Take 1 tablet by mac once daily. krill oil (10 sources) Start: 11-23-2021 take 1 capsule by mouth once daily Xwnmz-Sh-5-Zvp-Toh-Xhuq abran-Ast (Krill Oil) 1,231-300-28-80 mg capsule Active 1 NMA PO DAILY November 23, 2021 10:12am Start: 11-23-2021 Rtsru-Mx-8-Dha -Gql-Aqtokql-Rzw (Krill Oil) 1,704-847-15-80 mg capsule Active 1 CAP PO DAILY November 23, 2021 10:12am Start: 03-07-2021 End: 11-23-2021 Bsphw-Cl-8-Nuj-Pfx-Qygcopk-A st (Krill Oil) 1,733-851-24-80 mg capsule Discontinued 1 CAP PO TWICE A DAY March 07, 2021 12:31pm November 23, 2021 10:13am Start: 03-07-2021 End: 11-23-2021 take 1 capsule by mouth twice daily Rimdg-Ts-2-Cff-Ufr-Vlqnezi-Ast (Krill Oi l) 1,465-552-18-80 mg capsule Discontinued 1 NMA PO TWICE A DAY March 07, 2021 12:00am November 23, 2021 10:13am L. Acidophilus-L. Rhamnosus (Florajen Women) 15 billion cell capsule (3 sources) Start: 01-01-2022 take 1 capsule by mouth once daily L. Acidophilus-L. Rhamnosus (Florajen Women) 15 billion cell capsule Active 1 CAP PO DAILY January 01, 2022 2:56pm Start: 01-01-2022 L. Acidophilus -L. Rhamnosus (Florajen Women) 15 billion cell capsule Active 1 NMA PO DAILY January 01, 2022 12:00am losartan potassium 100 mg oral tablet (20 sources) Angiotensin 2 Receptor Josefina Start: 03-07-2021 End: 07-16-2024 take 1 tablet by mouth once daily Losartan 100 mg tablet Active 100 mg PO DAILY 90 3 July 16, 2024 9:37am Comment on above: Take 1 tablet by mac th once daily. meloxicam 15 mg oral tablet (20 sources) Nonsteroidal Anti-inflammatory Drug Start: 03-07-2021 End: 01-03-2025 take 1 tablet by mouth once daily meloxicam (MOBIC) 15 mg tablet Take 1 tablet by mouth once daily. 90 tablet 1 01/04/2025 Active Comment on above: Take 1 tablet by mac th once daily. 24 hr metFORMIN hydrochloride 500 mg extended release oral tablet (20 sources) Biguanide Start: 11-24-2021 End: 10-12-2025 take 1 tablet by mouth once daily at breakfast metFORMIN ER (FORTAMET) 500 mg 24 hr tablet Take 1 tablet by mouth daily with breakfast. May substitute 90 tablet 3 10/12/2024 03/16/2025 Discontinued Start: 03-07-2021 take 1 tablet by mac th once daily at breakfast metFORMIN ER (GLUCOPHAGE XR) 500 mg 24 hr tablet Take 500 mg by mouth daily with breakfast. 01/03/2025 Active Start: 04-24-2016 End: 03-07-2021 take 850 mg by mouth once daily Metformin Discontinued 850 MG PO DAILY April 24, 2016 9:50am March 07, 2021 12:30pm Comment on above: Take 1 tablet by mac th daily with breakfast. May substitute metroNIDAZOLE 500 mg oral tablet (7 sources) Nitroimidazole Antimicrobial Start: 06-24-20 End: 08-19-20 take 1 tablet by mouth twice daily metroNIDAZOLE (FLAGYL) 500 mg tablet Indications: BV (bacterial vaginosis) Take 1 tablet by mouth two times a day for 7 days. 14 tablet 06/24/2024 07/01/2024 Active Jdhxyqla-Zbp-Jk-Lycop en-Lutein (Centrum Silver) 0.4 mg-300 mcg- 250 mcg tablet (1 source) Start: 07-26-20 take 1 tablet by mouth once daily Gafeorhk-Bav-Mr-Lyco pen-Lutein (Centrum Silver) 0.4 mg-300 mcg- 250 mcg tablet Active 1 {tbl} PO DAILY July 26, 2022 1:00am Ihjzpisf-Yzzimymlo-Gw amicidin (8 sources) Start: 11-24-19 Nvsfmncz-Kngefzbbj-O ramicidin Active ML OPHTHALMIC November 23, 2021 10:12am Start: 05-17-2021 End: 11-23-2021 Mrpijhpc-Ohocswflz-Kjrzgjffm n Discontinued ML OPHTHALMIC May 17, 2021 9:00am November 23, 2021 10:13am Ggcpjweb-Vmeskmoeu-Xawkcfbrv n drops (2 sources) Start: 11-23-2021 Lfhnzmuq-Iizlaujyc-Rpljgfvry n drops Active mL OPHTHALMIC as needed November 23, 2021 10:12am Start: 05-17-2021 End: 11-23-2021 Udxtitdc-Xhkufuutw-Mjltcudom n drops Discontinued mL OPHTHALMIC May 17, 2021 12:00am November 23, 2021 10:13am nitrofurantoin, macrocrystals 25 mg / nitrofurantoin, monohydrate 75 mg oral capsule (2 sources) Nitrofuran Antibacterial Start: 08-16-2022 End: 08-23-2022 take 1 capsule by mouth twice daily at mealtime nitrofurantoin monohydrate and macrocrystal (MACROBID) 100 mg capsule Take 1 capsule by mouth twice daily with meals for 7 days. 14 capsule 0 08/16/2022 08/23/2022 Active Comment on above: Take 1 capsule by [facility] twice daily with meals for 7 days. nitroglycerin 0.4 mg sublingual tablet (5 sources) Nitrate Vasodilator Start: 03-07-2021 Nitroglycerin Active 0.4 MG SL every 5 to 15 minutes March 07, 2021 3:20pm Start: 03-07-2021 Nitroglycerin 0.4 mg tablet, sublingual Active 0.4 mg SL every 5 to 15 minutes as needed for Chest Pain March 07, 2021 12:00am Chest pain Chest pain, unspecified polyethylene glycol 3350 285119 mg / potassium chloride 2970 mg / sodium bicarbonate 6740 mg / sodium chloride 5860 mg / sodium sulfate 91301 mg powder for oral solution (1 source) Osmotic Laxative Start: 03-16-2025 End: 03-16-2025 peg 3350-Electrolytes (GOLYTELY) 236-22.74-6.74 -5.86 gram suspension Indications: Screen for colon cancer Take 4,000 mL by mouth one time only for 1 dose. Refer to printed prep instructions from your provider. 4000 mL 03/16/2025 03/16/2025 Active Completed/Discontinued Medications Medication Drug Class(es) Dates Sig (Normalized) Sig (Original) bromfenac 0.75 mg/ml ophthalmic solution (6 sources) Nonsteroidal Anti-inflammatory Drug Start: 05-27-2024 End: 08-19-2024 take 1 drop(s) into the eye(s) once daily BROMSITE 0.075 % drop Use 1 Drop in the right eye once daily. 05/27/2024 08/19/2024 Discontinued carvedilol 3.125 mg oral tablet (5 sources) alpha-Adrenergic Josefina, beta-Adrenergic Josefina Start: 05-17-2021 End: 06-02-2021 take 3.125 mg by mouth twice daily at mealtime Carvedilol Discontinued 3.125 MG PO TWICE A DAY 60 May 17, 2021 9:36am June 02, 2021 4:46pm must administer with a meal/food Clobetasol taper - compound [facility] (20 sources) Start: 05-15-2019 End: 03-03-2025 Clobetasol taper - compound [facility] Indications: Lichen sclerosus et atrophicus Clobetasol 0.07% ointment. Use to affected area twice daily x 4 weeks then at bedtime x 4 weeks then 1-2 times per week. 1 Tube 2 05/15/2019 03/03/2025 Discontinued Start: 05-15-2019 Clobetasol tap er - compound [facility] Indications: Lichen sclerosus et atrophicus Clobetasol 0.07% ointment. Use to affected area twice daily x 4 weeks then at bedtime x 4 weeks then 1-2 times per week. 1 Tube 2 05/15/2019 Active Comment on above: Clobetasol 0.07% oin tment. Use to affected area twice daily x 4 weeks then at bedtime x 4 weeks then 1-2 times per week. 24 hr dilTIAZem hydrochloride 120 mg extended release oral capsule (5 sources) Calcium Channel Josefina Start: 1 End: 1 take 120 mg by mouth once daily Diltiazem Hcl Discontinued 120 MG PO DAILY March 14, 2021 2:23pm April 18, 2021 1:45pm 0.5 ml dulaglutide 3 mg/ml auto-injector (9 sources) GLP-1 Receptor Agonist Start: 3 End: 4 Dulaglutide (Trulicity) 1.5 mg/0.5 mL pen injector Discontinued 1.5 mg SC EVERY WEEK April 23, 2023 12:00am October 30, 2023 3:33pm Start: 01-21-2023 End: 01-21-2024 inject 0.75 mg by subcutaneous injection every week dulaglutide (TRULICITY) 0.75 mg/0.5 mL pen injector Indications: Controlled type 2 diabetes mellitus without complication, without long-term current use of insulin (HCC) Inject 0.75 mg subcutaneously one time a week. Inject dose once per week. Discard Pen After 6 mL 3 01/21/2023 04/08/2023 Discontinued Comment on above: Inject 0.75 mg subcu taneously one time a week. Inject dose once per week. Discard Pen After Inject 1.5 mg subcut aneously one time a week. Inject once per week. Discard Pen After FOLIC ACID/MULTIVIT-MIN/ARIA TEIN (CENTRUM SILVER ORAL) (20 sources) End: 03-16-2025 FOLIC ACID/MULTIVIT-MIN/LUTEIN (CENTRUM SILVER ORAL) Take by mouth once daily. 03/16/2025 Discontinued (Other) FOLIC ACID/MULTI VIT-MIN/LUTEIN (CENTRUM SILVER ORAL) Take by mouth once daily. Active FOLIC ACID/MULTI VIT-MIN/LUTEIN (CENTRUM SILVER ORAL) Take by mouth once daily. 0 Active Comment on above: Take by mouth once d aily. KRILL OIL ORAL (20 sources) End: 03-16-2025 take 800 mg by mouth once daily KRILL OIL ORAL Take 800 mg by mouth once daily. 03/16/2025 Discontinued (Other) take 800 mg by mouth once daily KRILL OIL ORAL Take 800 mg by mouth once daily. Active take 800 mg by mouth once daily KRILL OIL ORAL Take 800 mg by mouth once daily. 0 Active Comment on above: Take 800 mg by mouth once daily. L. acidophilus-L. rhamnosus 15 billion cell cap (20 sources) Start: 10-11-2022 End: 10-12-2024 take 1 capsule by mouth once daily L. acidophilus-L. rhamnosus 15 billion cell cap Indications: Itching of vulva Take 1 capsule by mouth once daily. FLORAJEN WOMEN. If on antibiotic, take at least 1-2 hours before or after antibiotic. KEEP REFRIGERATED 30 capsule 11 10/11/2022 10/12/2024 Discontinued Start: 10-11-2022 take 1 capsule by [facility] once daily L. acidophilus-L. rhamnosus 15 billion cell cap Indications: Itching of vulva Take 1 capsule by mouth once daily. FLORAJEN WOMEN. If on antibiotic, take at least 1-2 hours before or after antibiotic. KEEP REFRIGERATED 30 capsule 11 10/11/2022 Active Start: 10-11-2021 End: 10-11-2022 take 1 capsule by mouth once daily L. acidophilus-L. rhamnosus 15 billion cell cap Indications: BV (bacterial vaginosis) Take 1 capsule by mouth once daily. FLORAJEN WOMEN. If on antibiotic, take at least 1-2 hours before or after antibiotic. KEEP REFRIGERATED 30 capsule 11 10/11/2021 10/11/2022 Discontinued Start: 10-11-2021 take 1 capsule by mo uth once daily L. acidophilus-L. rhamnosus 15 billion cell cap Indications: BV (bacterial vaginosis) Take 1 capsule by mouth once daily. FLORAJEN WOMEN. If on antibiotic, take at least 1-2 hours before or after antibiotic. KEEP REFRIGERATED 30 capsule 11 10/11/2021 Active Comment on above: Take 1 capsule by mo uth once daily. FLORAJEN WOMEN. If on antibiotic, take at least 1-2 hours before or after antibiotic. KEEP REFRIGERATED L.acidophilus-L.r hamnosus (FLORAJEN WOMEN) 15 billion cell capsule (13 sources) Start: End: take 1 capsule by mouth once daily L.acidophilus-L.rhamn osus (FLORAJEN WOMEN) 15 billion cell capsule Indications: Itching of vulva Take 1 capsule by mouth once daily. FLORAJEN WOMEN. If on antibiotic, take at least 1-2 hours before or after antibiotic. KEEP REFRIGERATED 30 capsule 11 10/13/2024 03/16/2025 Discontinued (Other) Start: 10-13-2024 take 1 capsule by mo uth once daily L.acidophilus-L.rhamnosus (FLORAJEN WOME N) 15 billion cell capsule Indications: Itching of vulva Take 1 capsule by mouth once daily. FLORAJEN WOMEN. If on antibiotic, take at least 1-2 hours before or after antibiotic. KEEP REFRIGERATED 30 capsule 11 10/13/2024 Active Lidocaine (1 source) Antiarrhythmic, Amide Local Anesthetic Start: 03-17-2025 End: 03-17-2025 OTHER, X (OR/PROCEDURE) PRN, Starting on Sat03/17/25 at 1102, Until Sat03/17/25 at 1102, Intraprocedure 24 hr metoprolol succinate 50 mg extended release oral tablet (5 sources) beta-Adrenergic Josefina Start: 03-27-2021 End: 04-19-2021 take 50 mg by mouth once daily Metoprolol Succinate Discontinued 50 MG PO DAILY March 27, 2021 1:51pm April 19, 2021 4:02pm Qotpeoht-Ksy-Mb- Lycopen-Lutein (Centrum Silver) 1 EACH tablet (5 sources) Start: 04-23-2016 End: 03-07-2021 take 1 tablet by mouth once daily Dldlncux-Ttv-Py-Lyco pen-Lutein (Centrum Silver) 1 EACH tablet Discontinued 1 EACH PO DAILY April 23, 2016 1:10pm March 07, 2021 12:31pm Start: 04-23-2016 End: 03-07-2021 take 1 tablet by mouth once daily Ixjfdrsb-Dwv-La-Lycopen-Lutein (Centrum Silver) 1 EACH tablet Discontinued 1 NMA PO DAILY April 23, 2016 12:00am March 07, 2021 12:31pm nadolol 40 mg oral tablet (5 sources) beta-Adrenergic Josefina Start: 04-23-2016 End: 03-14-2021 take 120 mg by mouth once daily Nadolol Discontinued 120 MG PO DAILY April 23, 2016 1:10pm March 14, 2021 2:23pm Start: 04-23-2016 End: 03-14-2021 take 1 tablet by mouth once daily Nadolol 40 MG tablet Discontinued 120 mg PO DAILY April 23, 2016 12:00am March 14, 2021 2:23pm neomycin/polymyxin B/dexamet feliciano ([id number] OPHTHALMIC) (20 sources) End: 08-19-2024 neomycin/polymyxin B/dexamet feliciano ([id number] OPHTHALMIC) Use in eyes as needed. 08/19/2024 Discontinued neomycin/polymyx in B/dexametha ([id number] OPHTHALMIC) Use in eyes as needed. Active neomycin/polymyx in B/dexametha ([id number] OPHTHALMIC) Use in eyes as needed. 0 Active Comment on above: Use in eyes as neede d. simvastatin 20 mg oral tablet (5 sources) HMG-CoA Reductase Inhibitor Start: 6 End: 6 take 20 mg by mouth at bedtime Simvastatin Discontinued 20 MG PO AT BEDTIME April 23, 2016 1:10pm April 24, 2016 9:50am Turmeric extract (7 sources) Start: End: Turmeric Discontinued MG PO March 07, 2021 12:31pm March 07, 2021 3:20pm Start: 03-07-2021 End: 03-07-2021 Turmeric 400 mg capsule Disc ontinued mg PO March 07, 2021 12:00am March 07, 2021 3:20pm End: 01-18-2022 TURMERIC ORAL Take by mouth once daily. 0 01/18/2022 Discontinued TURMERIC ORAL Ta ke by mouth once daily. 0 Active Comment on above: Take by mouth once d aily. valsartan 160 mg oral tablet (5 sources) Angiotensin 2 Receptor Josefina Start: 04-23-20 End: 03-07-20 take 160 mg by mouth once daily Valsartan Discontinued 160 MG PO DAILY April 23, 2016 1:10pm March 07, 2021 12:30pm 24 hr verapamil hydrochloride 180 mg extended release oral capsule (5 sources) Calcium Channel Josefina Start: 04-19-20 End: 05-17-20 take 180 mg by mouth once daily in the morning Verapamil Discontinued 180 MG PO EVERY MORNING April 19, 2021 4:02pm May 17, 2021 9:37am Problems Active Problems Problem Classification Problem Date Documented Da te Episodic/Chronic Chronic kidney disease (1 source) Chronic kidney disease stage 2; Translations: [Chronic kidney disease, stage 2 (mild)] Chronic Congestive heart failure; nonhypertensive (20 sources) Congestive heart failure; Translations: [Heart failure, unspecified] Onset: 07-05-2022 Chronic Coronary atherosclerosis and other heart disease (20 sources) Non-obstructive atherosclerosis of coronary artery; Translations: [Atherosclerotic heart disease of ione coronary artery without angina pectoris] Onset: 07-05-2022 Chronic Comment on above: 40% stenosis in mid RCA and mid CX per cath 03/13/21 Diabetes mellitus without complication (20 sources) Type 2 diabetes mellitus; Translations: [Type 2 diabetes mellitus without complications] Onset: 07-13-2021 Resolved: 07-13-2021 07-13-2021 Chronic Disorders of lipid metabolism (20 sources) Hyperlipidemia; Translations: [Hyperlipidemia, unspecified] Onset: 08-01-2022 Chronic Essential hypertension (20 sources) Essential hypertension; Translations: [Essential (primary) hypertension] Onset: 07-13-2021 Chronic Heart valve disorders (20 sources) Aortic valve stenosis; Translations: [Nonrheumatic aortic (valve) stenosis] Onset: 07-05-2022 Chronic Immunizations and screening for infectious disease (5 sources) Patient encounter status; Translations: [Encounter for immunization] Onset: 03-03-2025 Episodic Inflammatory diseases of female pelvic organs (2 sources) Bacterial vaginosis; Translations: [Acute vaginitis] Episodic Menopausal disorders (1 source) Atrophic vaginitis; Translations: [Postmenopausal atrophic vaginitis] 07-31-2024 Chronic Nonmalignant breast conditions (1 source) Atypical ductal hyperplasia of breast; Translations: [Unspecified benign mammary dysplasia of left breast] Episodic Other and unspecified benign neoplasm (2 sources) Intraductal papilloma of left breast; Translations: [Benign neoplasm of left breast] Episodic Other and unspecified benign neoplasm (4 sources) History of polyp of colon; Translations: [History of colonic polyps] 03-03-2025 Episodic Other bone disease and musculoskeletal deformities (1 source) Bone density below reference range; Translations: [Other specified disorders of bone density and structure, unspecified site] 02-14-2024 Episodic Other female genital disorders (1 source) Vaginal irritation; Translations: [Other specified noninflammatory disorders of vagina] 06-23-2024 Episodic Other gastrointestinal disorders (4 sources) Abnormal feces; Translations: [Other fecal abnormalities] 03-03-2025 Episodic Other gastrointestinal disorders (2 sources) Dysphagia; Translations: [Dysphagia, unspecified] 03-16-2025 Episodic Other gastrointestinal disorders (2 sources) Abdominal bloating; Translations: [Abdominal distension (gaseous)] 03-16-2025 Episodic Other gastrointestinal disorders (2 sources) Burping; Translations: [Eructation] 03-16-2025 Episodic Other gastrointestinal disorders (1 source) Dysphagia, unspecified; Translations: [Dysphagia, unspecified type] Onset: 03-16-2025 Episodic Other gastrointestinal disorders (1 source) Abdominal distension (gaseous); Translations: [Bloating] Onset: 03-16-2025 Episodic Other gastrointestinal disorders (1 source) Eructation; Translations: [Belching] Onset: 03-16-2025 Episodic Other gastrointestinal disorders (1 source) Other fecal abnormalities; Translations: [Abnormal stool caliber] Onset: 03-03-2025 Episodic Other inflammatory condition of skin (20 sources) Psoriatic arthritis; Translations: [Arthropathic psoriasis, unspecified] Onset: 07-13-2021 07-13-2021 Chronic Other inflammatory condition of skin (1 source) Arthropathic psoriasis, unspecified; Translations: [Psoriatic arthritis (HCC)] Onset: 07-13-2021 Chronic Other inflammatory condition of skin (2 sources) Pruritus of vulva; Translations: [Pruritus vulvae] Episodic Other inflammatory condition of skin (1 source) Intertrigo; Translations: [Erythema intertrigo] 06-23-2024 Episodic Other injuries and conditions due to external causes (1 source) Contusion; Translations: [Other injury of unspecified body region, initial encounter] 02-14-2024 Episodic Other liver diseases (18 sources) Steatosis of liver; Translations: [Fatty (change of) liver, not elsewhere classified] Onset: 08-19-2024 Chronic Other liver diseases (19 sources) Fatty (change of) liver, not elsewhere classified; Translations: [Other chronic nonalcoholic liver disease] Onset: 12-11-2022 08-19-2024 Chronic Other liver diseases (2 sources) Hepatic fibrosis; Translations: [Hepatic fibrosis, advanced fibrosis] Chronic Other liver diseases (2 sources) Elevated liver enzymes level; Translations: [Abnormal levels of other serum enzymes] Episodic Other liver diseases (1 source) Abnormal levels of other serum enzymes; Translations: [Elevated liver enzymes] Onset: 03-18-2025 Episodic Other lower respiratory disease (7 sources) Dyspnea, unspecified; Translations: [Other respiratory abnormalities] Onset: 04-10-2025 Episodic Other lower respiratory disease (4 sources) Dyspnea; Translations: [Shortness of breath] 03-03-2025 Episodic Other lower respiratory disease (1 source) Shortness of breath; Translations: [SOB (shortness of breath)] Onset: 03-03-2025 Episodic Other nutritional; endocrine; and metabolic disorders (5 sources) Obesity; Translations: [Obesity, unspecified] 10-21-2024 Chronic Other nutritional; endocrine; and metabolic disorders (9 sources) Obesity caused by energy imbalance; Translations: [Morbid (severe) obesity due to excess calories] Onset: 03-03-2025 03-03-2025 Chronic Other nutritional; endocrine; and metabolic disorders (1 source) Morbid (severe) obesity due to excess calories; Translations: [Morbid (severe) obesity due to excess calories (HCC)] Onset: 03-03-2025 Chronic Other screening for suspected conditions (not mental disorders or infectious disease) (20 sources) Thallium stress test abnormal; Translations: [Abnormal result of other cardiovascular function study] Onset: 08-01-2022 Episodic Other skin disorders (20 sources) Lichen sclerosus et atrophicus; Translations: [Circumscribed scleroderma] Onset: 07-13-2021 07-13-2021 Chronic Other skin disorders (1 source) Skin lesion; Translations: [Disorder of the skin and subcutaneous tissue, unspecified] Episodic Pulmonary heart disease (20 sources) Pulmonary hypertension; Translations: [Pulmonary hypertension, unspecified] Onset: 01-18-2022 Chronic Residual codes; unclassified (20 sources) Obstructive sleep apnea syndrome; Translations: [Obstructive sleep apnea (adult) (pediatric)] 07-13-2021 Chronic Comment on above: CPAP 14 cmH2O Residual codes; unclassified (3 sources) Sleep apnea; Translations: [Sleep apnea, unspecified] 01-02-2022 Chronic Residual codes; unclassified (1 source) Obstructive sleep apnea (adult) (pediatric); Translations: [ELVER (obstructive sleep apnea)] Onset: 08-02-2023 Chronic Residual codes; unclassified (5 sources) Bilateral lower limb edema; Translations: [Localized edema] 11-23-2021 Episodic Residual codes; unclassified (7 sources) Localized edema; Translations: [Edema] Onset: 03-26-2025 Episodic Residual codes; unclassified (20 sources) Family history of cancer of colon; Translations: [Family history of malignant neoplasm of digestive organs] 07-13-2021 Episodic Screening and history of mental health and substance abuse codes (2 sources) Encounter for screening examination for other mental health and behavioral disorders; Translations: [Encounter for screening for depression] Onset: 03-03-2025 Episodic Transient cerebral ischemia (20 sources) Transient cerebral ischemia; Translations: [Transient cerebral ischemic attack, unspecified] Onset: 07-13-2021 07-13-2021 Chronic Unclassified (1 source) Metabolic dysfunction-associate d steatotic liver disease (MASLD) 03-03-2025 Unclassified (1 source) Obesity, Class III, BMI 40-49.9 (morbid obesity) (HCC); Translations: [Obesity, Class III, BMI 40-49.9 (morbid obesity) (HCC)] Onset: 03-03-2025 Unclassified (1 source) History of colonic polyps; Translations: [History of colonic polyps] Onset: 03-03-2025 Unclassified (1 source) Hepatic fibrosis, advanced fibrosis; Translations: [Hepatic fibrosis, advanced fibrosis] Onset: 01-07-2025 Past or Other Problems Problem Classification Problem Date Documented Da te Episodic/Chronic Cancer of kidney and renal pelvis (20 sources) History of malignant neoplasm of kidney; Translations: [Personal history of other malignant neoplasm of kidney] Onset: 07-13-2021 07-13-2021 Episodic Cardiac dysrhythmias (20 sources) Pounding heart; Translations: [Palpitations] Onset: 08-01-2022 Resolved: 08-01-2022 08-01-2022 Episodic Malaise and fatigue (20 sources) Fatigue; Translations: [Other fatigue] Onset: 08-01-2022 Resolved: 08-01-2022 08-01-2022 Episodic Nonspecific chest pain (20 sources) Chest pain; Translations: [Chest pain, unspecified] Onset: 08-01-2022 Resolved: 08-01-2022 08-01-2022 Episodic Osteoarthritis (20 sources) Arthritis of wrist; Translations: [Primary osteoarthritis, unspecified wrist] Onset: 02-20-2017 Resolved: 07-13-2021 07-13-2021 Chronic Other and unspecified benign neoplasm (20 sources) Adenoma of nipple; Translations: [Benign neoplasm of left breast] Onset: 07-11-2022 Resolved: 07-11-2022 07-11-2022 Episodic Other connective tissue disease (20 sources) Triggering of digit; Translations: [Trigger finger, unspecified finger] Onset: 04-16-2018 Resolved: 07-13-2021 07-13-2021 Episodic Other inflammatory condition of skin (20 sources) Psoriasis; Translations: [Psoriasis, unspecified] Onset: 07-13-2021 Resolved: 02-14-2024 07-13-2021 Chronic Other lower respiratory disease (20 sources) Dyspnea on exertion; Translations: [Dyspnea, unspecified] Onset: 07-05-2022 Resolved: 08-01-2022 Episodic Other nutritional; endocrine; and metabolic disorders (20 sources) Body mass index 40+ - severely obese; Translations: [Morbid (severe) obesity due to excess calories] Onset: 07-11-2022 Resolved: 03-03-2025 07-11-2022 Chronic Other skin disorders (20 sources) Excessive sweating; Translations: [Generalized hyperhidrosis] Onset: 08-01-2022 08-01-2022 Episodic Residual codes; unclassified (20 sources) Family history of malignant neoplasm of kidney; Translations: [Family history of malignant neoplasm of kidney] Onset: 07-13-2021 Resolved: 07-13-2021 07-13-2021 Episodic Residual codes; unclassified (20 sources) Localized edema; Translations: [Localized edema] Onset: 01-08-2022 Resolved: 08-01-2022 08-01-2022 Episodic Residual codes; unclassified (1 source) Family history of malignant neoplasm of digestive organs; Translations: [Family history of colon cancer] Onset: 07-13-2021 Episodic Unclassified (1 source) Patient encounter status 03-16-2025 Results Test Name Value Interpretation Reference Range Facil itkp PAULOVon 03-30-2025 CNOV Office Visit (GENSWS ) LISANDRA ABREU ([id number]) 1955 F Date Time Provider Department 03/30/25 1:00 PM CHEMA TEMPLETON During your visit today, we recorded the following information about you: Chema Templeton MD 03/31/2025 9:27 AM Signed Subjective: Lisandra Abreu is a 69-year-old female presenting for follow-up on a recent breast biopsy. Lisandra recently underwent a breast biopsy, which revealed a complex sclerosing lesion with estrogen receptor duct positivity. Lisandra expresses concern about the possibility of needing future biopsies, noting that it has been only 2 years since a previous biopsy on the contralateral breast, which was completely benign. She is not comfortable with a watchful waiting approach and seeks further evaluation and management. Objective:There were no vitals taken for this visit. Biopsy site is clean without signs of infection FINAL DIAGNOSIS A. Right breast at 3 o'clock, subareolar, ultrasound-guided core biopsy with butterfly clip placement: - Complex sclerosing lesion. See Comment. at 1412 EDT Diagnosis Comment [facility] A. An immunohistochemical stain for p63 appears to highlight scattered myoepithelial cells in the lesion. An estrogen receptor immunohistochemical stain demonstrates occasional ductal cells positive. Reviewed by Drs. Jacome and Edinson via e-pathology. Assessment:Abnormal mammogram (primary encounter diagnosis) Plan:1. Abnormal mammogram (R92.8) Biopsy revealed a complex sclerosing lesion with estrogen receptor duct positivity. Although not diagnosed as ductal carcinoma in situ, the findings are not entirely benign. - Referred to Dr. Mell Portillo, a breast surgeon in [place], for further evaluation and management. - Discussed potential need for wire localization excisional breast biopsy to remove the lesion. - Patient understands and agrees with the plan. Allergies As of Date: 03/30/2025 Noted Allergy Reaction ERYTHROMYCIN 02/20/2017 2 - Rash MIROSLAVA INHIBITORS 07/13/2021 3 - Cough CARVEDILOL 07/13/2021 5 - Intolerance Comments: Slight headache, leg cramps, sweating CORGARD (NADOLOL) 07/13/2021 5 - Intolerance Comments: Heavy chest, sweating, hot flashes DILTIAZEM 07/13/2021 5 - Intolerance Comments: Dizzy/ heart thumping, heard to breathe METOPROLOL 07/13/2021 5 - Intolerance Comments: Chest tight, hot flash/sweat TETRACYCLINE HCL (BULK) 08/22/2015 4 - Hives Comments: blisters VERAPAMIL 07/13/2021 5 - Intolerance Comments: Short of breath, fatigue, indigestion, rash Date Reviewed: 03/30/2025 Reviewed by: Jessica Ngo RN - Fully Assessed Reason for Visit: Follow Up [171] Cmt: Breast bx done in IR 03/17/2025 Primary Visit Diagnosis:Abnormal mammogram [R92.8] Order(s):CONSULT TO GENERAL SURGERY [9025] Order #: [id number]: 1 FUTURE Prescriptions as of 03/31/2025 - metFORMIN ER (GLUCOPHAGE XR) 500 mg 24 hr tablet Take 500 mg by mouth daily with breakfast. - clobetasol (TEMOVATE) 0.05 % ointment Apply 1 application to affected area as directed. TO AFFECTED AREA 1-2 times a week for control of lichen sclerosis. - atenolol (TENORMIN) 50 mg tablet Take 1 tablet by mouth once daily. - hydroCHLOROthiazide 25 mg tablet Take 1 tablet by mouth once daily. - meloxicam (MOBIC) 15 mg tablet Take 1 tablet by mouth once daily. - atorvastatin (LIPITOR) 80 mg tablet Take 1 tablet by mouth once daily. - blood sugar diagnostic (BLOOD GLUCOSE TEST) test strip Test blood sugar(s) 1 times daily. Dx: Type 2 DM - Controlled E11.9 Insulin: No - estradiol (ESTRACE) 0.01 % (0.1 mg/gram) vaginal cream Use 1 g vaginally two times a week. Insert 1 gm vaginally every night x 14 nights then insert 1 gm vaginally twice weekly - losartan (COZAAR) 100 mg tablet Take 1 tablet by mouth once daily. - Lancets lancets Test blood sugar(s) 1 times daily. Dx: Type 2 DM - Controlled E11.9 Insulin: No - amLODIPine (NORVASC) 10 mg tablet Take 10 mg by mouth once daily. Going to double check dosage. - aspirin, enteric coated (ASPIRIN, ENTERIC COATED) 81 mg EC tablet Take 81 mg by mouth once daily. 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 Normal [facility] CNPNon 03-24-2025 CNPN Telephone (RADMN) LISANDRA ABREU ([id number]) 1955 F Date Time Provider Department 03/24/25 MAYE PERKINS RADMN During your visit today, we recorded the following information about you: Allergies As of Date: 03/24/2025 Noted Allergy Reaction ERYTHROMYCIN 02/20/2017 2 - Rash MIROSLAVA INHIBITORS 07/13/2021 3 - Cough CARVEDILOL 07/13/2021 5 - Intolerance Comments: Slight headache, leg cramps, sweating CORGARD (NADOLOL) 07/13/2021 5 - Intolerance Comments: Heavy chest, sweating, hot flashes DILTIAZEM 07/13/2021 5 - Intolerance Comments: Dizzy/ heart thumping, heard to breathe METOPROLOL 07/13/2021 5 - Intolerance Comments: Chest tight, hot flash/sweat TETRACYCLINE HCL (BULK) 08/22/2015 4 - Hives Comments: blisters VERAPAMIL 07/13/2021 5 - Intolerance Comments: Short of breath, fatigue, indigestion, rash Date Reviewed: 03/16/2025 Reviewed by: Evelyn Rodriguez APRN.BEHAVIORAL CONSULTANT - Fully Assessed Reason for Visit: Results [95] Prescriptions as of 03/24/2025 - metFORMIN ER (GLUCOPHAGE XR) 500 mg 24 hr tablet Take 500 mg by mouth daily with breakfast. - clobetasol (TEMOVATE) 0.05 % ointment Apply 1 application to affected area as directed. TO AFFECTED AREA 1-2 times a week for control of lichen sclerosis. - atenolol (TENORMIN) 50 mg tablet Take 1 tablet by mouth once daily. - hydroCHLOROthiazide 25 mg tablet Take 1 tablet by mouth once daily. - meloxicam (MOBIC) 15 mg tablet Take 1 tablet by mouth once daily. - atorvastatin (LIPITOR) 80 mg tablet Take 1 tablet by mouth once daily. - blood sugar diagnostic (BLOOD GLUCOSE TEST) test strip Test blood sugar(s) 1 times daily. Dx: Type 2 DM - Controlled E11.9 Insulin: No - estradiol (ESTRACE) 0.01 % (0.1 mg/gram) vaginal cream Use 1 g vaginally two times a week. Insert 1 gm vaginally every night x 14 nights then insert 1 gm vaginally twice weekly - losartan (COZAAR) 100 mg tablet Take 1 tablet by mouth once daily. - Lancets lancets Test blood sugar(s) 1 times daily. Dx: Type 2 DM - Controlled E11.9 Insulin: No - amLODIPine (NORVASC) 10 mg tablet Take 10 mg by mouth once daily. Going to double check dosage. - aspirin, enteric coated (ASPIRIN, ENTERIC COATED) 81 mg EC tablet Take 81 mg by mouth once daily. Problem List As Of Date 03/24/2025 Noted Resolved Triggering of digit [M65.30] 04/16/2018 07/13/2021 Arthritis of wrist [M19.039] 02/20/2017 07/13/2021 Primary hypertension [I10] 07/13/2021 Diabetes mellitus type 1, controlled, without c*07/13/2021 07/13/2021 Family history of renal cancer [Z80.51] 07/13/2021 07/13/2021 Lichen sclerosus [L90.0] 07/13/2021 Psoriatic arthritis (HCC) [L40.50] 07/13/2021 Psoriasis [L40.9] 07/13/2021 02/14/2024 Family history of colon cancer [Z80.0] ELVER (obstructive sleep apnea) [G47.33] TIA (transient ischemic attack) [G45.9] 07/13/2021 Controlled type 2 diabetes mellitus without com*07/13/2021 History of renal cell cancer [Z85.528] 07/13/2021 Pulmonary HTN (HCC) [I27.20] 01/18/2022 HERRON (dyspnea on exertion) [R06.09] 07/05/2022 08/01/2022 Nonobstructive atherosclerosis of coronary paige*07/05/2022 CHF (congestive heart failure) (HCC) [I50.9] 07/05/2022 Aortic valve stenosis [I35.0] 07/05/2022 Obesity, Class III, BMI >= 40 [E66.813] 07/11/2022 08/02/2023 Subareolar duct papillomatosis, 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] 07/11/2022 07/11/2022 Abnormal thallium stress test [R94.39] 08/01/2022 Chest pain [R07.9] 08/01/2022 08/01/2022 Excessive sweating [R61] 08/01/2022 Fatigue [R53.83] 08/01/2022 08/01/2022 Hyperlipidemia [E78.5] 08/01/2022 Localized edema [R60.0] 01/08/2022 08/01/2022 Pounding heartbeat [R00.2] 08/01/2022 08/01/2022 Metabolic dysfunction-associated steatotic live*08/19/2024 Morbid (severe) obesity due to excess calories *03/03/2025 Obesity, Class III, BMI >= 40 [E66.813] 03/03/2025 03/03/2025 Encounter Status:Closed by MAYE PERKINS on 03/24/25 Normal [facility] Echo Completeon 03-22-2025 Echo [facility] Cardiovascular Services [address] [place] [id number] Echo Complete 03/22/25 1357 MR#: [id number] Acct: [id number] Name: LISANDRA ABREU Rep #: [id number] : 1955 69 From: Dominguez Cheema MD Attending Dr: Renetta Sanchez CREAM DUMPER-C Status: [facility] David Ordering Dr: Renetta Sanchez NP CREAM DUMPER-C Date: 03/22/25 Location: [facility] Sex: F C Admitted: Reason For Study Reason For Study: Bilateral LE Edema Procedure This was a 2D Doppler, Color Flow transthoracic echocardiogram. The study was technically difficult. Unable to utilize Definity due to Left Nephrectomy. Exam performed in department. Left Ventricle Normal LV size. Left ventricular systolic function is normal. Stage 1 diastolic dysfunction. The left ventricular ejection fraction is 60 %. No regional wall motion abnormalities noted. Right Ventricle Normal right ventricle. Normal systolic function. Atria Normal left atrium. Normal right atrium. Mitral Valve Normal mitral valve. Tricuspid Valve Normal tricuspid valve. Aortic Valve Trisinus/trileaflet aortic valve. Mild focal aortic valve calcification. Peak aortic valve gradient 21 mmHg. Mean aortic valve gradient 11 mmHg. Mild aortic stenosis. Pulmonic Valve Normal pulmonic valve. Great Vessels Normal aortic root. The pulmonary artery is normal size. Inferior vena cava collapse with respiration. Pericardium/Pleural No pericardial effusion. MMode/2D Measurements Calculations LVIDd: 4.8 cm IVSd: 1.2 cm LVOT diam: 2.0 cm LVIDs: 2.9 cm LVPWd: 1.1 cm LVOT area: 3.1 cm2 RVDd: 3.8 cm FS: 38.7 % Ao root diam: 2.8 cm LAV(MOD-bp): 55.1 ml LA A4 area: 18.9 cm2 LAV(MOD-bp) Indexed: 24.1 ml/m2 LAV(MOD-sp2): 55.1 ml LAV(MOD-sp4): 50.1 ml LA dimension(2D): 4.0 cm RA A4 area: 20.1 cm2 Time Measurements MV dec time: 0.24 sec Doppler Measurements Calculations MV E max prasad: 117.6 cm/sec Lat Peak E' Prasad: 5.9 cm/sec Med Peak E' Prasad: 16.8 cm/sec MV A max prasad: 130.8 cm/sec E/E' lat: 19.9 E/E' med: 7.0 MV E/A: 0.90 MV V2 max: 156.5 cm/sec MV P1/2t max prasad: 148.0 cm/sec Ao V2 max: 228.8 cm/sec MV max P.8 mmHg MV P1/2t: 76.9 msec Ao max P.0 mmHg MV V2 mean: 75.7 cm/sec MV dec slope: 563.7 cm/sec2 Ao V2 mean: 150.5 cm/sec MV mean P.9 mmHg Ao mean P.6 mmHg MV V2 VTI: 50.8 cm MVA(P1/2t): 2.9 cm2 Ao V2 VTI: 54.9 cm MVA(VTI): 1.8 cm2 AV (velocity ratio): 0.56 JENNIFER(I,D): 1.7 cm2 JENNIFER(V,D): 1.6 cm2 LV V1 max: 123.2 cm/sec SV(LVOT): 93.3 ml PA V2 max: 124.1 cm/sec LV V1 max P.1 mmHg PA V2 mean: 86.7 cm/sec LV V1 mean P.6 mmHg LV V1 mean: 90.6 cm/sec LV V1 VTI: 30.5 cm ECHO/Echo Complete Interpretation Summary Normal LV size. Left ventricular systolic function is normal. Stage 1 diastolic dysfunction. Mean aortic valve gradient 11 mmHg. Mild aortic stenosis. The left ventricular ejection fraction is 60 %. Ordering Physician: Renetta Sanchez Referring Physician: Renetta Sanchez Performed By: Tone Mcnamara RCS 03/22/25 1552 Date Dominguez Cheema MD CC: CARO Sanchez; Dr. Pedro Jacob MD Date Dictated: 03/22/25 1357 Date Transcribed: 03/22/25 1552 Hhas: Signed Normal [facility] Echocardiogram study reportO rdered By: Dominguez Cheema on 03-22-2025 Study report [facility] Cardiovascular Services [address] [place] [address] Echo Complete 03/22/25 1357 MR#: [id number] Acct: [id number] Name: LISANDRA ABREU Rep #:[id number] : 1955 69 From: Dominguez Azul Attending Dr: Renetta Sanchez, CARO S tatus: REG CLI Ordering Dr: Renetta Sanchez NP Darvin e: 03/22/25 Location: [facility] Sex: F C Admitted: Reason For Study Reason For Study: Bilateral LE Edema Procedure This was a 2D Doppler, Color Flow transthoracic echocardiogram. The study was technically difficult. Unable to utilize Definity due to Left Nephrectomy. Exam performed in department. Left Ventricle Normal LV size. Left ventricular systolic function is normal. Stage 1 diastolic dysfunction. The left ventricular ejection fraction is 60 %. No regional wall motion abnormalities noted. Right Ventricle Normal right ventricle. Normal systolic function. Atria Normal left atrium. Normal right atrium. Mitral Valve Normal mitral valve. Tricuspid Valve Normal tricuspid valve. Aortic Valve Trisinus/trileaflet aortic valve. Mild focal aortic valve calcification. Peak aortic valve gradient 21 mmHg. Mean aortic valve gradient 11 mmHg. Mild aortic stenosis. Pulmonic Valve Normal pulmonic valve. Great Vessels Normal aortic root. The pulmonary artery is normal size. Inferior vena cava collapse with respiration. Pericardium/Pleural No pericardial effusion. MMode/2D Measurements & Calculations LVIDd: 4.8 cm IVSd: 1.2 cm LVOT diam: 2.0 cm LVIDs: 2.9 cm LVPWd: 1.1 cm LVOT area: 3.1 cm2 RVDd: 3.8 cm FS: 38.7 % Ao root diam: 2.8 cm LAV(MOD-bp): 55.1 ml LA A4 area: 18.9 cm2 LAV(MOD-bp) Indexed: 24.1 ml/m2 LAV(MOD-sp2): 55.1 ml LAV(MOD-sp4): 50.1 ml LA dimension(2D): 4.0 cm RA A4 area: 20.1 cm2 Time Measurements MV dec time: 0.24 sec Doppler Measurements & Calculations MV E max prasad: 117.6 cm/sec Lat Peak E' Prasad: 5.9 cm/sec Med Peak E' Parsad: 16.8 cm/sec MV A max prasad: 130.8 cm/sec E/E' lat: 19.9 E/E' med: 7.0 MV E/A: 0.90 MV V2 max: 156.5 cm/sec MV P1/2t max prasad: 148.0 cm/sec Ao V2 max: 228.8 cm/sec MV max P.8 mmHg MV P1/2t: 76.9 msec Ao max P.0 mmHg MV V2 mean: 75.7 cm/sec MV dec slope: 563.7 cm/sec2 Ao V2 mean: 150.5 cm/sec MV mean P.9 mmHg Ao mean P.6 mmHg MV V2 VTI: 50.8 cm MVA(P1/2t): 2.9 cm2 Ao V2 VTI: 54.9 cm MVA(VTI): 1.8 cm2 AV (velocity ratio): 0.56 JENNIFER(I,D): 1.7 cm2 JENNIFER(V,D): 1.6 cm2 LV V1 max: 123.2 cm/sec SV(LVOT): 93.3 ml PA V2 max: 124.1 cm/sec LV V1 max P.1 mmHg PA V2 mean: 86.7 cm/sec LV V1 mean P.6 mmHg LV V1 mean: 90.6 cm/sec LV V1 VTI: 30.5 cm ECHO/Echo Complete Interpretation Summary Normal LV size. Left ventricular systolic function is normal. Stage 1 diastolic dysfunction. Mean aortic valve gradient 11 mmHg. Mild aortic stenosis. The left ventricular ejection fraction is 60 %. Ordering Physician: Renetta Sanchez Referring Physician: Renetta Sanchez Performed By: Tone Mcnamara RCS 03/22/25 1552 Date _ Dominguez Cheema MD CC: CARO Sanchez; Dr. Pedro Jacob MD ~ Date Dictated: 03/22/25 1357 Date Transcribed: 03/22/25 1552 Hhas: Signed [facility] Work Phone: HAV IgM Ser Qlon 03-18-2025 HAV IgM Ql (S) Negative Normal Negative [facility] Comment on above: Order Comment: Speci men Type: BLOOD SPECIMEN Ordering Facility: [facility] Address: [address] [place] [address] Result Comment: No e vidence of recent infection with Hepatitis A virus. Performed By: #### 4 537-7, 75308-0 #### [facility] CLIA [id number] [address] [place] [address] [place] [address] [place] HBV core IgM Ser Qlon 2024 HBV core IgM Ql (S) Negative Normal Negative [facility] Comment on above: Order Comment: Speci men Type: BLOOD SPECIMEN Ordering Facility: [facility] Address: [address] [place] [address] Result Comment: No e vidence of recent infection with Hepatitis B virus. Should recent infection be suspected, repeat testing may be considered 3-4 weeks after this draw. Performed By: #### 4 537-7, 94859-1 #### [facility] CLIA [id number] [address] [place] [address] [place] HBV surface Ag Ser Qlon 07 HBV surface Ag Ql (S) Negative Normal Negative [facility] Comment on above: Order Comment: Carol astorga Type: BLOOD SPECIMEN Ordering Facility: [facility] Address: [address] [place] [address] Performed By: #### 4 537-7, 27570-8 #### [facility] CLIA [id number] [address] [place] [address] [place] HCV RNA JEREMIAH+probe Qnon 03-18 HCV RNA JEREMIAH+probe Ql Not detected Normal Not detected [facility] Comment on above: Order Comment: Carol astorga Type: BLOOD SPECIMENOrdering Facility: [facility] Address: [address] [place] [address] Performed By: #### 1 1011-4 ####[facility] [id number] [place] [address] [place] Hepatic function 2000 panelo n 03-18-2025 Albumin [Mass/Vol] 4.6 g/dL Normal 3.9-4.9 [facility] Comment on above: Order Comment: Néstori gauri Type: BLOOD SPECIMENOrdering Facility: [facility] Address: [address] [place] [address] Performed By: #### 2 4325-3 ####[facility] [id number] [address] [id number] [address] [place] ALP [Catalytic activity/Vol] 84 U/L Normal 34-123 [facility] Comment on above: Order Comment: Speci men Type: BLOOD SPECIMENOrdering Facility: [facility] Address: [address] [id number] Performed By: #### 2 4325-3 ####[facility] [id number] [place] [id number] [place] ALT [Catalytic activity/Vol] 34 U/L Normal 7-38 [facility] Comment on above: Order Comment: Speci men Type: BLOOD SPECIMENOrdering Facility: [facility] Address: [address] [place] [address] Performed By: #### 2 4325-3 ####[facility] [id number] [place] [address] [place] AST [Catalytic activity/Vol] 34 U/L Normal 13-35 [facility] Comment on above: Order Comment: Speci men Type: BLOOD SPECIMENOrdering Facility: [facility] Address: [address] [place] [address] Performed By: #### 2 4325-3 ####[facility] [id number] [place] [address] [place] Bilirubin [Mass/Vol] 0.6 mg/dL Normal 0.2-1.3 [facility] Comment on above: Order Comment: Speci men Type: BLOOD SPECIMENOrdering Facility: [facility] Address: [address] [place] [address] Performed By: #### 2 4325-3 ####[facility] [id number] [place] [address] [place] Bilirubin.conjugated [Mass/Vol] 0.1 mg/dL Normal <0.3 [facility] Comment on above: Order Comment: Speci men Type: BLOOD SPECIMENOrdering Facility: [facility] Address: [address] [place] [address] Performed By: #### 2 4325-3 ####[facility] [id number] [address] [address] [place] Protein [Mass/Vol] 7.1 g/dL Normal 6.3-8.0 [facility] Comment on above: Order Comment: Speci men Type: BLOOD SPECIMENOrdering Facility: [facility] Address: [address] [id number] Performed By: #### 2 4325-3 ####[facility] [id number] [address] [address] [place] DBT Breast - right diagnosti c for implanton 03-17-2025 IMPRESSION: ULTRASOU ND GUIDED BIOPSY Site 1: Ultrasound-guided biopsy of the mass located in the right breast at 3 o'clock and in the subareolar region with placement of a hydromark butterfly biopsy marker. Procedure was successful. Waiting for pathology result. An amendment will be issued to this report when pathology results become available. The hydromark butterfly biopsy marker is in appropriate position at the mass. Interpreting Radiologist: Antonio Copeland M.D. Electronically signed on: 03/17/2025 Hhas: BRIAN Transcribe Date/Time: Mar 17 2025 11:25A Dictated by : ANTONIO COPEALND MD This examination was interpreted and the report reviewed and electronically signed by: ANTONIO COPELAND MD on Mar 17 2025 12:13PM [facility] * * *Final Report* * * DATE OF EXAM: Mar 17 2025 11:26AM JANEE 0629 - [facility] MICHAEL Carter NICOLE RT / PROCEDURE REASON: R92.8-Abnormal mammogram * * * * Physician Interpretation * * * * [facility] [address] [place] [address] #[id number] - [facility] US BIOPSY BREAST RT #[id number] - [facility] DIAG W NICOLE RT HISTORY: 69 year old patient presents for ultrasound guided core biopsy of the following: Site 1: Mass located in the right breast at 3 o'clock and in the subareolar region PATIENT CONSENT: A time out was performed immediately prior to procedure start with the radiology team, correctly identifying the patient name, date of , procedure, anatomy (including marking of site and side), patient position, relevant diagnostic and radiology test results, safety precautions, and procedure-specific equipment needs. The procedure, along with the risks (including, but not limited to, infection and bleeding), benefits, and alternatives, was explained to the patient by the performing physician. The patient agreed to undergo the procedure. Medications and allergies were also reviewed. The radiologist and technologist were present throughout the entire procedure. Correlation is made to exams dated: 01/30/2023 (mammogram), 01/07/2024 (mammogram), 01/07/2025 (mammogram), 02/17/2025 (ultrasound) and 02/17/2025 (mammogram). Site 1: Mass in the right breast at 3 o'clock and in the subareolar region Audible Time Out Time: 1058 Procedure Start Time: 1102 Procedure Stop Time: 1109 An ultrasound-guided biopsy using real-time ultrasound was performed for the concerning mass located in the right breast at 3 o'clock and in the subareolar region. This was described on the previous ultrasound report. The skin was prepped in the usual manner. Local anesthetic was administered. A skin aan was made. The abnormality was approached from the inferior aspect. A 14 gauge biopsy needle was placed adjacent to the abnormality under ultrasound guidance. Once the needle was documented to be in the correct location, 2 samples were obtained using a spring-loaded biopsy device. A hydromark butterfly biopsy marker was then placed under sonographic guidance. A skin closure strip and a sterile dressing were applied to the access site. The specimen was sent to the laboratory for pathological analysis. There were no biopsy complications observed. Post-procedure mammogram: The hydromark butterfly biopsy marker is in appropriate position at the mass. Post-procedure mammogram density: There are scattered areas of fibroglandular density. [facility] Provider, Raul Starr - 03/17/2025 * * *Final Report* * * DATE OF EXAM: Mar 17 2025 11:26AM JANEE 0629 - [facility] MICHAEL RIVERA RT / PROCEDURE REASON: R92.8-Abnormal mammogram * * * * Physician Interpretation * * * * [place] [id number] #[id number] - [facility] US BIOPSY BREAST RT #[id number] - [facility] MICHAEL RIVERA RT HISTORY: 69 year old patient presents for ultrasound guided core biopsy of the following: Site 1: Mass located in the right breast at 3 o'clock and in the subareolar region PATIENT CONSENT: A time out was performed immediately prior to procedure start with the radiology team, correctly identifying the patient name, date of , procedure, anatomy (including marking of site and side), patient position, relevant diagnostic and radiology test results, safety precautions, and procedure-specific equipment needs. The procedure, along with the risks (including, but not limited to, infection and bleeding), benefits, and alternatives, was explained to the patient by the performing physician. The patient agreed to undergo the procedure. Medications and allergies were also reviewed. The radiologist and technologist were present throughout the entire procedure. Correlation is made to exams dated: 01/30/2023 (mammogram), 01/07/2024 (mammogram), 01/07/2025 (mammogram), 02/17/2025 (ultrasound) and 02/17/2025 (mammogram). Site 1: Mass in the right breast at 3 o'clock and in the subareolar region Audible Time Out Time: 1058 Procedure Start Time: 1102 Procedure Stop Time: 1109 An ultrasound-guided biopsy using real-time ultrasound was performed for the concerning mass located in the right breast at 3 o'clock and in the subareolar region. This was described on the previous ultrasound report. The skin was prepped in the usual manner. Local anesthetic was administered. A skin ana was made. The abnormality was approached from the inferior aspect. A 14 gauge biopsy needle was placed adjacent to the abnormality under ultrasound guidance. Once the needle was documented to be in the correct location, 2 samples were obtained using a spring-loaded biopsy device. A hydromark butterfly biopsy marker was then placed under sonographic guidance. A skin closure strip and a sterile dressing were applied to the access site. The specimen was sent to the laboratory for pathological analysis. There were no biopsy complications observed. Post-procedure mammogram: The hydromark butterfly biopsy marker is in appropriate position at the mass. Post-procedure mammogram density: There are scattered areas of fibroglandular density. IMPRESSION IMPRESSION: ULTRASOUND GUIDED BIOPSY Site 1: Ultrasound-guided biopsy of the mass located in the right breast at 3 o'clock and in the subareolar region with placement of a hydromark butterfly biopsy marker. Procedure was successful. Waiting for pathology result. An amendment will be issued to this report when pathology results become available. The hydromark butterfly biopsy marker is in appropriate position at the mass. Interpreting Radiologist: Antonio Copeland M.D. Electronically signed on: 03/17/2025 Hhas: BRIAN Transcribe Date/Time: Mar 17 2025 11:25A Dictated by : ANTONIO COPELAND MD This examination was interpreted and the report reviewed and electronically signed by: ANTONIO COPELAND MD on Mar 17 2025 12:13PM [facility] Radiology Study observation (narrative) [facility] NIC DIAG W NICOLE RTon 025 NIC DIAG W NICOLE RT * * *Final Report* * * * * * SEE BOTTOM OF REPORT FOR ADDENDED TEXT * * * DATE OF EXAM: Mar 17 2025 11:26AM JANEE 0629 - [facility] DIAG W NICLOE RT / PROCEDURE REASON: R92.8-Abnormal mammogram * * * * Physician Interpretation * * * * [id number] [id number] - - - - - - - - - - ADDENDED REPORT - - - - - - - - - - 03/26/2025 at 12:48:36 Addendum: The final pathology results of the patient's ultrasound guided core biopsy demonstrate the following: Site 1 - (right breast) A. Right Breast at 3 O'Clock, Subareolar, Ultrasound-Guided Core Biopsy With Butterfly Clip Placement: - Complex Sclerosing Lesion. See Comment. Electronically Signed By Jackie Asif MD On 03/23/2025 at 1412 Edt This is concordant with the imaging findings. RECOMMENDATION Site 1: Surgical consultation A breast imaging nurse navigator contacted the patient with the results and recommendations. Surgical consultation is recommended. The patient was assisted in scheduling surgical consultation. Interpreting Radiologist: Antonio Copeland M.D. Electronically signed on: 03/26/2025 - - - - - - - - - - ORIGINAL REPORT - - - - - - - - - - #[id number] - [facility] US BIOPSY BREAST RT #[id number] - [facility] MICHAEL RIVERA RT HISTORY: 69 year old patient presents for ultrasound guided core biopsy of the following: Site 1: Mass located in the right breast at 3 o'clock and in the subareolar region PATIENT CONSENT: A time out was performed immediately prior to procedure start with the radiology team, correctly identifying the patient name, date of , procedure, anatomy (including marking of site and side), patient position, relevant diagnostic and radiology test results, safety precautions, and procedure-specific equipment needs. The procedure, along with the risks (including, but not limited to, infection and bleeding), benefits, and alternatives, was explained to the patient by the performing physician. The patient agreed to undergo the procedure. Medications and allergies were also reviewed. The radiologist and technologist were present throughout the entire procedure. Correlation is made to exams dated: 01/30/2023 (mammogram), 01/07/2024 (mammogram), 01/07/2025 (mammogram), 02/17/2025 (ultrasound) and 02/17/2025 (mammogram). Site 1: Mass in the right breast at 3 o'clock and in the subareolar region Audible Time Out Time: 1058 Procedure Start Time: 1102 Procedure Stop Time: 1109 An ultrasound-guided biopsy using real-time ultrasound was performed for the concerning mass located in the right breast at 3 o'clock and in the subareolar region. This was described on the previous ultrasound report. The skin was prepped in the usual manner. Local anesthetic was administered. A skin ana was made. The abnormality was approached from the inferior aspect. A 14 gauge biopsy needle was placed adjacent to the abnormality under ultrasound guidance. Once the needle was documented to be in the correct location, 2 samples were obtained using a spring-loaded biopsy device. A hydromark butterfly biopsy marker was then placed under sonographic guidance. A skin closure strip and a sterile dressing were applied to the access site. The specimen was sent to the laboratory for pathological analysis. There were no biopsy complications observed. Post-procedure mammogram: The hydromark butterfly biopsy marker is in appropriate position at the mass. Post-procedure mammogram density: There are scattered areas of fibroglandular density. IMPRESSION: ULTRASOUND GUIDED BIOPSY Site 1: Ultrasound-guided biopsy of the mass located in the right breast at 3 o'clock and in the subareolar region with placement of a hydromark butterfly biopsy marker. Procedure was successful. Waiting for pathology result. An amendment will be issued to this report when pathology results become available. The hydromark butterfly biopsy marker is in appropriate position at the mass. Interpreting Radiologist: Antonio Copeland M.D. Electronically signed on: 03/17/2025 Hhas: BRIAN Transcribe Date/Time: Mar 17 2025 11:25A Dictated by : ANTONIO COPELAND MD This examination was interpreted and the report reviewed and electronically signed by: ANTONIO COPELAND MD on Mar 17 2025 12:13PM EST This document has been addended by: ANTONIO COPELAND MD on Mar 26 2025 12:48PM EST [id number] Normal [facility] US BIOPSY BREAST RTon [facility] US BIOPSY BREAST RT * * *Final Report* * * * * * SEE BOTTOM OF REPORT FOR ADDENDED TEXT * * * DATE OF EXAM: Mar 17 2025 11:16AM MACHO 0598 - [facility] US BIOPSY BREAST RT / PROCEDURE REASON: R92.8-Abnormal mammogram * * * * Physician Interpretation * * * * [place] [id number] - - - - - - - - - - ADDENDED REPORT - - - - - - - - - - 03/26/2025 at 12:48:36 Addendum: The final pathology results of the patient's ultrasound guided core biopsy demonstrate the following: Site 1 - (right breast) A. Right Breast at 3 O'Clock, Subareolar, Ultrasound-Guided Core Biopsy With Butterfly Clip Placement: - Complex Sclerosing Lesion. See Comment. Electronically Signed By Jackie Asif MD On 03/23/2025 at 1412 Edt This is concordant with the imaging findings. RECOMMENDATION Site 1: Surgical consultation A breast imaging nurse navigator contacted the patient with the results and recommendations. Surgical consultation is recommended. The patient was assisted in scheduling surgical consultation. Interpreting Radiologist: Antonio Copeland M.D. Electronically signed on: 03/26/2025 - - - - - - - - - - ORIGINAL REPORT - - - - - - - - - - #[id number] - [facility] US BIOPSY BREAST RT #[id number] - [facility] MICHAEL RIVERA RT HISTORY: 69 year old patient presents for ultrasound guided core biopsy of the following: Site 1: Mass located in the right breast at 3 o'clock and in the subareolar region PATIENT CONSENT: A time out was performed immediately prior to procedure start with the radiology team, correctly identifying the patient name, date of , procedure, anatomy (including marking of site and side), patient position, relevant diagnostic and radiology test results, safety precautions, and procedure-specific equipment needs. The procedure, along with the risks (including, but not limited to, infection and bleeding), benefits, and alternatives, was explained to the patient by the performing physician. The patient agreed to undergo the procedure. Medications and allergies were also reviewed. The radiologist and technologist were present throughout the entire procedure. Correlation is made to exams dated: 01/30/2023 (mammogram), 01/07/2024 (mammogram), 01/07/2025 (mammogram), 02/17/2025 (ultrasound) and 02/17/2025 (mammogram). Site 1: Mass in the right breast at 3 o'clock and in the subareolar region Audible Time Out Time: 1058 Procedure Start Time: 1102 Procedure Stop Time: 1109 An ultrasound-guided biopsy using real-time ultrasound was performed for the concerning mass located in the right breast at 3 o'clock and in the subareolar region. This was described on the previous ultrasound report. The skin was prepped in the usual manner. Local anesthetic was administered. A skin ana was made. The abnormality was approached from the inferior aspect. A 14 gauge biopsy needle was placed adjacent to the abnormality under ultrasound guidance. Once the needle was documented to be in the correct location, 2 samples were obtained using a spring-loaded biopsy device. A hydromark butterfly biopsy marker was then placed under sonographic guidance. A skin closure strip and a sterile dressing were applied to the access site. The specimen was sent to the laboratory for pathological analysis. There were no biopsy complications observed. Post-procedure mammogram: The hydromark butterfly biopsy marker is in appropriate position at the mass. Post-procedure mammogram density: There are scattered areas of fibroglandular density. IMPRESSION: ULTRASOUND GUIDED BIOPSY Site 1: Ultrasound-guided biopsy of the mass located in the right breast at 3 o'clock and in the subareolar region with placement of a hydromark butterfly biopsy marker. Procedure was successful. Waiting for pathology result. An amendment will be issued to this report when pathology results become available. The hydromark butterfly biopsy marker is in appropriate position at the mass. Interpreting Radiologist: Antonio Copeland M.D. Electronically signed on: 03/17/2025 Hhas: BRIAN Transcribe Date/Time: Mar 17 2025 10:21A Dictated by : ANTONIO COPELAND MD This examination was interpreted and the report reviewed and electronically signed by: ANTONIO COPELAND MD on Mar 17 2025 12:13PM EST This document has been addended by: ANTONIO COPELAND MD on Mar 26 2025 12:48PM EST [id number] [facility] No Panel InformationOrdered By: [facility] Provider on 03-17-2025 [facility] Pathology biopsy report Jhonatan (Tiss)on 03-17-2025 AP DISCLAIMER [facility] Comment on above: Order Comment: Speci men Type: TISSUE SPECIMEN Ordering Facility: [facility] Address: [address] [place] [address] Result Comment: Sona awad Developed Test (LDT) Disclaimer: Performance characteristics of immunohistochemical, immunofluorescent, and chromogenic in-situ hybridization tests have been determined by the performing laboratory within [facility]'s Abhay Fallon [facility] Pathology and Laboratory Medicine Department ([facility], [facility], [facility], [facility], [facility], [facility], or [facility]) in a manner consistent with CLIA requirements. One or more of these tests may not have been cleared or approved by the FDA. [facility] is regulated under CLIA as qualified to perform high-complexity testing. These tests are used for clinical purposes. These should not be regarded as investigational or for research. Positive and negative controls stain appropriately. Performed By: #### 6 6121-5 #### [facility] CLIA [id number] [facility] CLIA [id number] [address] [place] [address] OF MARIO CASE REPORT [facility] Comment on above: Order Comment: Speci men Type: TISSUE SPECIMEN [facility] [facility] Address: [address] [place] [address] Result Comment: [facility]urg [facility] Pathology Report Case: [id number] Authorizing Provider: Antonio Copeland MD Collected: 03/17/2025 11:05 AM Ordering Location: Mammography Received: 03/17/2025 11:36 AM Pathologist: Jackie Asif MD Specimen: Breast, Right, Core Biopsy, 3:00 Subareolar; HM Butterfly Clip Performed By: #### 6 6121-5 #### [facility] CLIA [id number] [address] [place] [address] LAB CLIA [id number] [address] [place] [address] OF [place] DIAGNOSIS COMMENT A. An immunohistochemical stain for p63 appears to highlight scattered myoepithelial cells in the lesion. An estrogen receptor immunohistochemical stain demonstrates occasional ductal cells positive. Reviewed by Drs. Jacome and Edinson via e-pathology. [facility] Comment on above: Order Comment: Speci men Type: TISSUE SPECIMEN Ordering Facility: [facility] Address: [address] [place] [address] Performed By: #### 6 6121-5 #### [facility] CLIA [id number] [address] [place] [address] LAB CLIA [id number] [address] [place] [address] OF [place] FINAL DIAGNOSIS [facility] Comment on above: Order Comment: Speci men Type: TISSUE SPECIMEN Ordering Facility: [facility] Address: [address] [place] [address] Result Comment: A. R ight breast at 3 o'clock, subareolar, ultrasound-guided core biopsy with butterfly clip placement: - Complex sclerosing lesion. See Comment. at 1412 EDT Performed By: #### 6 6121-5 #### [facility] CLIA [id number] [address] [place] [address] LAB CLIA [id number] [address] [place] [address] OF [place] FINAL PERFORMING LAB [facility] Comment on above: Order Comment: Speci men Type: TISSUE SPECIMEN [facility]ing Facility: [facility] Address: [address] [place] [address] Result Comment: Diag nostic interpretation performed at: [facility], [address] [place] [address] CLIA# [id number] Grain Drier Operator: Jade Dozier MD Performed By: #### 6 6121-5 #### [facility] CLIA [id number] [address] [place] [address] LAB CLIA [id number] [address] [place] [address] GROSS DESCRIPTION [facility] Comment on above: Order Comment: Speci men Type: TISSUE SPECIMEN [facility]ing Facility: [facility] Address: [address] [place] [address] Result Comment: A. B reast, Right, Core Biopsy Received in formalin labeled as right breast are multiple segments of cylindrical tissue aggregating to 1.4 x 0.3 x 0.1 cm, the little brown and of a soft consistency. The specimen was removed from the patient at ut 11:05 AM on 03/17/2025. On the same day, the specimen was placed in formalin at 11:05 AM. Totally submitted in formalin in one cassette. Gross examination performed at [facility], [address] [place] [address] 03/17/2025 5:14 PM Performed By: #### 6 6121-5 #### [facility] CLIA [id number] [address] [place] [address] OF [facility] CLIA [id number] [address] [place] [address] [place] US Guidance for biopsy of Joelle jasso 03-17-2025 IMPRESSION: ULTRASOU ND GUIDED BIOPSY Site 1: Ultrasound-guided biopsy of the mass located in the right breast at 3 o'clock and in the subareolar region with placement of a hydromark butterfly biopsy marker. Procedure was successful. Waiting for pathology result. An amendment will be issued to this report when pathology results become available. The hydromark butterfly biopsy marker is in appropriate position at the mass. Interpreting Radiologist: Antonio Copeland M.D. Electronically signed on: 03/17/2025 Hhas: BRIAN Transcribe Date/Time: Mar 17 2025 10:21A Dictated by : ANTONIO COPELAND MD This examination was interpreted and the report reviewed and electronically signed by: ANTONIO COPELAND MD on Mar 17 2025 12:13PM [facility] * * *Final Report* * * DATE OF EXAM: Mar 17 2025 11:16AM [facility] 0598 - [facility] US BIOPSY BREAST RT / PROCEDURE REASON: R92.8-Abnormal mammogram * * * * Physician Interpretation * * * * [place] [address] #[id number] - [facility] US BIOPSY BREAST RT #[id number] - [facility] MICHAEL RIVERA RT HISTORY: 69 year old patient presents for ultrasound guided core biopsy of the following: Site 1: Mass located in the right breast at 3 o'clock and in the subareolar region PATIENT CONSENT: A time out was performed immediately prior to procedure start with the radiology team, correctly identifying the patient name, date of , procedure, anatomy (including marking of site and side), patient position, relevant diagnostic and radiology test results, safety precautions, and procedure-specific equipment needs. The procedure, along with the risks (including, but not limited to, infection and bleeding), benefits, and alternatives, was explained to the patient by the performing physician. The patient agreed to undergo the procedure. Medications and allergies were also reviewed. The radiologist and technologist were present throughout the entire procedure. Correlation is made to exams dated: 01/30/2023 (mammogram), 01/07/2024 (mammogram), 01/07/2025 (mammogram), 02/17/2025 (ultrasound) and 02/17/2025 (mammogram). Site 1: Mass in the right breast at 3 o'clock and in the subareolar region Audible Time Out Time: 1058 Procedure Start Time: 1102 Procedure Stop Time: 1109 An ultrasound-guided biopsy using real-time ultrasound was performed for the concerning mass located in the right breast at 3 o'clock and in the subareolar region. This was described on the previous ultrasound report. The skin was prepped in the usual manner. Local anesthetic was administered. A skin ana was made. The abnormality was approached from the inferior aspect. A 14 gauge biopsy needle was placed adjacent to the abnormality under ultrasound guidance. Once the needle was documented to be in the correct location, 2 samples were obtained using a spring-loaded biopsy device. A hydromark butterfly biopsy marker was then placed under sonographic guidance. A skin closure strip and a sterile dressing were applied to the access site. The specimen was sent to the laboratory for pathological analysis. There were no biopsy complications observed. Post-procedure mammogram: The hydromark butterfly biopsy marker is in appropriate position at the mass. Post-procedure mammogram density: There are scattered areas of fibroglandular density. [facility] Provider, Raul Starr - 03/17/2025 * * *Final Report* * * DATE OF EXAM: Mar 17 2025 11:16AM [facility] 0598 - [facility] US BIOPSY BREAST RT / PROCEDURE REASON: R92.8-Abnormal mammogram * * * * Physician Interpretation * * * * [place] [id number] #[id number] - [facility] US BIOPSY BREAST RT #[id number] - [facility] MICHAEL RIVERA RT HISTORY: 69 year old patient presents for ultrasound guided core biopsy of the following: Site 1: Mass located in the right breast at 3 o'clock and in the subareolar region PATIENT CONSENT: A time out was performed immediately prior to procedure start with the radiology team, correctly identifying the patient name, date of , procedure, anatomy (including marking of site and side), patient position, relevant diagnostic and radiology test results, safety precautions, and procedure-specific equipment needs. The procedure, along with the risks (including, but not limited to, infection and bleeding), benefits, and alternatives, was explained to the patient by the performing physician. The patient agreed to undergo the procedure. Medications and allergies were also reviewed. The radiologist and technologist were present throughout the entire procedure. Correlation is made to exams dated: 01/30/2023 (mammogram), 01/07/2024 (mammogram), 01/07/2025 (mammogram), 02/17/2025 (ultrasound) and 02/17/2025 (mammogram). Site 1: Mass in the right breast at 3 o'clock and in the subareolar region Audible Time Out Time: 1058 Procedure Start Time: 1102 Procedure Stop Time: 1109 An ultrasound-guided biopsy using real-time ultrasound was performed for the concerning mass located in the right breast at 3 o'clock and in the subareolar region. This was described on the previous ultrasound report. The skin was prepped in the usual manner. Local anesthetic was administered. A skin ana was made. The abnormality was approached from the inferior aspect. A 14 gauge biopsy needle was placed adjacent to the abnormality under ultrasound guidance. Once the needle was documented to be in the correct location, 2 samples were obtained using a spring-loaded biopsy device. A hydromark butterfly biopsy marker was then placed under sonographic guidance. A skin closure strip and a sterile dressing were applied to the access site. The specimen was sent to the laboratory for pathological analysis. There were no biopsy complications observed. Post-procedure mammogram: The hydromark butterfly biopsy marker is in appropriate position at the mass. Post-procedure mammogram density: There are scattered areas of fibroglandular density. IMPRESSION IMPRESSION: ULTRASOUND GUIDED BIOPSY Site 1: Ultrasound-guided biopsy of the mass located in the right breast at 3 o'clock and in the subareolar region with placement of a hydromark butterfly biopsy marker. Procedure was successful. Waiting for pathology result. An amendment will be issued to this report when pathology results become available. The hydromark butterfly biopsy marker is in appropriate position at the mass. Interpreting Radiologist: Antonio Copeland M.D. Electronically signed on: 03/17/2025 Hhas: BRIAN Transcribe Date/Time: Mar 17 2025 10:21A Dictated by : ANTONIO COPELAND MD This examination was interpreted and the report reviewed and electronically signed by: ANTONIO COPELAND MD on Mar 17 2025 12:13PM EST [facility] Radiology Study observation (narrative) [facility] CNOVon 03-16-2025 CNOV Office Visit (GENSWS ) LISANDRA ABREU ([id number]) 1955 F Date Time Provider Department 03/16/25 11:30 AM EVELYN RODRIGUEZ During your visit today, we recorded the following information about you: Temperature Pulse Respiration Blood pressure 97.1 degrees 68/minute 20/minute 126/72 Weight Height 125.6 kg 1.676 m Evelyn Rodriguez APRN.CNP 03/16/2025 11:56 AM Signed HISTORY AND PHYSICAL Lisandra Abreu : 1955 REFERRING PHYSICIAN: Pedro Garcia [facility] [address] CHIEF COMPLAINT: Patient presents with: Cancer Surveillance: Colonoscopy screening HPI: Lisandra is a 69 year old female referred for endoscopy. Lisandra notes due for screening colonoscopy-family history of colon cancer in father AND paternal uncle. Lisandra denies abdominal pain.. Lisandra denies diarrhea. Lisandra notes chronic constipation. -lifelong -doesn't take anything OTC Lisandra notes a change in bowel habits. -change in caliber -80% of the time stool comes out like a ribbon -longer than the last 6 months Lisandra denies melena. Lisandra denies bright red blood per rectum. Lisandra denies hemorrhoids. Lisandra denies heartburn. Lisandra notes dysphagia. -occassional, non conerning -more often with liquids then solids Lisandra denies a history of ulcers/ peptic ulcer disease. Lisandra notes a lot of bloating in the evenings AND a lot of belching Lisandra follows with [facility] for CAD, CHF, HTN, HLD. Last OV 07/09. Last ECHO 02/04 EF 55%. She denies CP, dizziness, palpitations, syncope, edema, recent hospitalizations. +Shortness of Breath has ECHO scheduled 03/22/25 Other medical history is significant for T2DM, ELVER c/w CPAP, obesity and hx of renal cell cancer. Lisandra has undergone prior endoscopy. Last EGD AND colonoscopy was 02/[address] Jenkins at [facility]. Sedation: Midazolam 5 mg IV, Fentanyl 100 micrograms IV, Diphenhydramine 50 mg IV EGD Impression: - Normal examined jejunum. Biopsied. - Normal. - Gastritis. Biopsied. - Non-severe reflux esophagitis. Biopsied. - Normal middle third of esophagus. Biopsied. - Ectopic gastric mucosa in the upper third of the esophagus. Biopsied. COLONOSCOPY Impression: - The entire examined colon is normal on direct and retroflexion views. - No specimens collected. CONVERTED FINAL DIAGNOSIS 1. Jejunum, biopsy (A) - Small bowel mucosa with no diagnostic alteration. - No evidence of celiac disease. 2. Stomach, antrum, biopsy (B) - Gastric antral mucosa with no diagnostic alteration. - Negative for H. pylori organisms on routine stain. 3. Esophagus, distal, biopsy (C) - Esophageal squamous and inflamed gastric cardia-type mucosa, consistent with reflux esophagitis. - Negative for intestinal metaplasia. 4. Esophagus, mid, biopsy (D) - Esophageal squamous mucosa with no diagnostic alteration. - No evidence of eosinophilic esophagitis. 5. Stomach, proximal, biopsy (E) - Esophageal squamous and gastric cardiofundic-type mucosa with focal intestinal metaplasia (see comment). - Negative for dysplasia. ANTONIO/cristi 02/26/2020 Current Outpatient Medications Medication Sig metFORMIN ER (GLUCOPHAGE XR) 500 mg 24 hr tablet Take 500 mg by mouth daily with breakfast. clobetasol (TEMOVATE) 0.05 % ointment Apply 1 application to affected area as directed. TO AFFECTED AREA 1-2 times a week for control of lichen sclerosis. atenolol (TENORMIN) 50 mg tablet Take 1 tablet by mouth once daily. hydroCHLOROthiazide 25 mg tablet Take 1 tablet by mouth once daily. meloxicam (MOBIC) 15 mg tablet Take 1 tablet by mouth once daily. atorvastatin (LIPITOR) 80 mg tablet Take 1 tablet by mouth once daily. blood sugar diagnostic (BLOOD GLUCOSE TEST) test strip Test blood sugar(s) 1 times daily. Dx: Type 2 DM - Controlled E11.9 Insulin: No estradiol (ESTRACE) 0.01 % (0.1 mg/gram) vaginal cream Use 1 g vaginally two times a week. Insert 1 gm vaginally every night x 14 nights then insert 1 gm vaginally twice weekly losartan (COZAAR) 100 mg tablet Take 1 tablet by mouth once daily. Lancets lancets Test blood sugar(s) 1 times daily. Dx: Type 2 DM - Controlled E11.9 Insulin: No amLODIPine (NORVASC) 10 mg tablet Take 10 mg by mouth once daily. Going to double check dosage. aspirin, enteric coated (ASPIRIN, ENTERIC COATED) 81 mg EC tablet Take 81 mg by mouth once daily. (Patient not taking: Reported on 03/16/2025) No current facility-administered medications for this visit. ALLERGIES: Erythromycin, Miroslava Inhibitors, Carvedilol, Corgard [Nadolol], Diltiazem, Metoprolol, Tetracycline Hcl (Bulk), and Verapamil PAST MEDICAL HISTORY Diagnosis Date Abnormal stool caliber 03/03/2025 Arthritis Congestive heart failure, unspecified HF chronicity, unspecified heart failure type (HCC) Controlled type 2 diabetes mellitus without complication, without long-term curre (more content not included)... Normal [facility] RHIANNA BY IFA SCREENon 03-03-20 25 Nuclear Ab pattern (S) [Interp] Nuclear homogeneous Normal [facility] Comment on above: Order Comment: Speci men Type: BLOOD SPECIMENOrdering Facility: [facility] Address: [address] [place] [address] Performed By: #### A NAIFS ####[facility] [id number] [place] [address] [place] Nuclear Ab Ql (S) Positive Abnormal Negative [facility] Comment on above: Order Comment: Speci men Type: BLOOD SPECIMENOrdering Facility: [facility] Address: [address] [place] [address] Result Comment: Anti -nuclear antibody test is used as an aid in diagnosis of systemic autoimmune diseases. Where positive and clinically warranted, follow-up using disease-specific testing is recommended. Low positive titers are not uncommon with advanced age, certain chronic infections, and malignancies among others. Test methodology: Indirect fluorescence immunoassay (IFA) using HEp-2 cells. 1:160 Performed By: #### A KOOK ####[facility] [id number] [address] [place] C-REACTIVE PROTEINon 025 CRP [Mass/Vol] mg/dL [facility] - 0.9 mg/dL [facility] CBC W Auto Differential pane l (Bld)on 03-03-2025 Basophils (Bld) [#/Vol] 0.06 10*3/uL [facility] Basophils/100 WBC (Bld) 0.8 % [facility] Differential cell count method Nom (Bld) Auto [facility] Eosinophils (Bld) [#/Vol] 0.17 10*3/uL [facility] Eosinophils/100 WBC (Bld) 2.2 % [facility] Erythrocyte distribution width (RBC) [Ratio] 14.7 % 11.5 - 15.0 % [facility] Hematocrit (Bld) [Volume fraction] 45 % 36.0 - 46.0 % [facility] Hemoglobin (Bld) [Mass/Vol] 14.2 g/dL 11.5 - 15.5 g/dL [facility] Immature granulocytes (Bld) [#/Vol] 0.04 10*3/uL [facility] Immature granulocytes/100 WBC (Bld) 0.5 % [facility] Lymphocytes (Bld) [#/Vol] 1.54 10*3/uL [facility] Lymphocytes/100 WBC (Bld) 19.9 % [facility] MCH (RBC) [Entitic mass] 27.6 pg 26.0 - 34.0 pg [facility] MCHC (RBC) [Mass/Vol] 31.6 g/dL 30.5 - 36.0 g/ dL [facility] MCV (RBC) [Entitic vol] 87.4 fL 80.0 - 100.0 fL [facility] Monocytes (Bld) [#/Vol] 0.5 10*3/uL [facility] Monocytes/100 WBC (Bld) 6.5 % [facility] Neutrophils (Bld) [#/Vol] 5.44 10*3/uL [facility] Neutrophils/100 WBC (Bld) 70.1 % [facility] Nucleated RBC (Bld) [#/Vol] NINF [facility] Nucleated RBC/100 WBC (Bld) [Ratio] 0 % /100 WBC [facility] Platelet mean volume (Bld) [Entitic vol] 9.9 fL 9.0 - 12.7 fL [facility] Platelets (Bld) [#/Vol] 218 10*3/uL [facility] RBC (Bld) [#/Vol] 5.15 10*6/uL 3.90 - 5.20 m/uL [facility] WBC (Bld) [#/Vol] 7.75 10*3/uL [facility] Basophils (Bld) [#/Vol] 0.06 10*3/uL Normal <0.11 [facility] Comment on above: Order Comment: Speci men Type: BLOOD SPECIMEN [facility]: [facility] Address: [address] [place] [address] Performed By: #### 4 537-7, 31347-3 #### [facility] CLIA [id number] [address] [place] [address] [place] Basophils/100 WBC (Bld) 0.8 % Normal [facility] Comment on above: Order Comment: Speci men Type: BLOOD SPECIMEN [facility]: [facility] Address: [address] [place] [address] Performed By: #### 4 537-7, 32956-7 #### [facility] CLIA [id number] [address] [place] [address] [place] Differential cell count method Nom (Bld) Auto Normal [facility] Comment on above: Order Comment: Speci men Type: BLOOD SPECIMEN [facility] Address: [address] [place] [address] Performed By: #### 4 537-7, 33315-5 #### [facility] CLIA [id number] [address] [place] [address] [place] Eosinophils (Bld) [#/Vol] 0.17 10*3/uL Normal <0.46 [facility] Comment on above: Order Comment: Speci men Type: BLOOD SPECIMEN [facility]: [facility] Address: [address] [place] [address] Performed By: #### 4 537-7, 66683-7 #### [facility] CLIA [id number] [address] [place] [address] [place] Eosinophils/100 WBC (Bld) 2.2 % Normal [facility] Comment on above: Order Comment: Speci men Type: BLOOD SPECIMEN [facility] Address: [address] [place] [address] Performed By: #### 4 537-7, 36983-6 #### [facility] CLIA [id number] [address] [place] [address] [place] Erythrocyte distribution width (RBC) [Ratio] 14.7 % Normal 11.5-15.0 [facility] Comment on above: Order Comment: Speci men Type: BLOOD SPECIMEN Order[facility] Facility: [facility] Address: [address] [place] [address] Performed By: #### 4 537-7, 67623-3 #### [facility] CLIA [id number] [address] [place] [address] [place] Hematocrit (Bld) [Volume fraction] 45.0 % Normal 36.0-46.0 [facility] Comment on above: Order Comment: Speci men Type: BLOOD SPECIMEN [facility]: [facility] Address: [address] [place] [address] Performed By: #### 4 537-7, 57230-6 #### [facility] CLIA [id number] [address] [place] [address] [place] Hemoglobin (Bld) [Mass/Vol] 14.2 g/dL Normal 11.5-15.5 [facility] Comment on above: Order Comment: Speci men Type: BLOOD SPECIMEN [facility] Address: [address] [place] [address] Performed By: #### 4 537-7, 38952-4 #### [facility] CLIA [id number] [address] [place] [address] [place] Immature granulocytes (Bld) [#/Vol] 0.04 10*3/uL Normal <0.10 [facility] Comment on above: Order Comment: Speci men Type: BLOOD SPECIMEN Order[facility] Facility: [facility] Address: [address] [place] [address] Performed By: #### 4 537-7, 93786-7 #### [facility] CLIA [id number] [address] [place] [address] [place] Immature granulocytes/100 WBC (Bld) 0.5 % Normal [facility] Comment on above: Order Comment: Speci men Type: BLOOD SPECIMEN Order[facility] Facility: [facility] Address: [address] [place] [address] Performed By: #### 4 537-7, 53045-4 #### [facility] CLIA [id number] [address] [place] [address] [place] Lymphocytes (Bld) [#/Vol] 1.54 10*3/uL Normal 1.00-4.00 [facility] Comment on above: Order Comment: Speci men Type: BLOOD SPECIMEN [facility] Address: [address] [place] [address] Performed By: #### 4 537-7, 36806-8 #### [facility] CLIA [id number] [address] [place] [address] [place] Lymphocytes/100 WBC (Bld) 19.9 % Normal [facility] Comment on above: Order Comment: Speci men Type: BLOOD SPECIMEN [facility] Address: [address] [place] [address] Performed By: #### 4 537-7, 48209-3 #### [facility] CLIA [id number] [address] [place] [address] [place] MCH (RBC) [Entitic mass] 27.6 pg Normal 26.0-34.0 [facility] Comment on above: Order Comment: Speci men Type: BLOOD SPECIMEN Order[facility] Facility: [facility] Address: [address] [place] [address] Performed By: #### 4 537-7, 20303-1 #### [facility] CLIA [id number] [address] [place] [address] [place] MCHC (RBC) [Mass/Vol] 31.6 g/dL Normal 30.5-36.0 [facility] Comment on above: Order Comment: Speci men Type: BLOOD SPECIMEN Ordering Facility: [facility] Address: [address] [place] [address] Performed By: #### 4 537-7, 39241-9 #### [facility] CLIA [id number] [address] [place] [address] [place] MCV (RBC) [Entitic vol] 87.4 fL Normal 80.0-100.0 [facility] Comment on above: Order Comment: Speci men Type: BLOOD SPECIMEN Ordering Facility: [facility] Address: [address] [place] [address] Performed By: #### 4 537-7, 06285-2 #### [facility] CLIA [id number] [address] [place] [address] [place] Monocytes (Bld) [#/Vol] 0.50 10*3/uL Normal <0.87 [facility] Comment on above: Order Comment: Speci men Type: BLOOD SPECIMEN Ordering Facility: [facility] Address: [address] [place] [address] Performed By: #### 4 537-7, 60264-8 #### [facility] CLIA [id number] [address] [place] [address] [place] Monocytes/100 WBC (Bld) 6.5 % Normal [facility] Comment on above: Order Comment: Speci men Type: BLOOD SPECIMEN Ordering Facility: [facility] Address: [address] [place] [address] Performed By: #### 4 537-7, 35234-2 #### [facility] CLIA [id number] [address] [place] [address] [place] Neutrophils (Bld) [#/Vol] 5.44 10*3/uL Normal 1.45-7.50 [facility] Comment on above: Order Comment: Speci men Type: BLOOD SPECIMEN Ordering Facility: [facility] Address: [address] [place] [address] Performed By: #### 4 537-7, 07832-7 #### [facility] CLIA [id number] [address] [place] [address] [place] Neutrophils/100 WBC (Bld) 70.1 % Normal [facility] Comment on above: Order Comment: Speci men Type: BLOOD SPECIMEN Ordering Facility: [facility] Address: [address] [place] [address] Performed By: #### 4 537-7, 76068-7 #### [facility] CLIA [id number] [address] [place] [address] [place] Nucleated RBC (Bld) [#/Vol] 10*3/uL Normal <0.01 [facility] Comment on above: Order Comment: Speci men Type: BLOOD SPECIMEN Ordering Facility: [facility] Address: [address] [place] [address] Performed By: #### 4 537-7, 90542-5 #### [facility] CLIA [id number] [address] [place] [address] [place] Nucleated RBC/100 WBC (Bld) [Ratio] 0.0 /100 WBC Normal [facility] Comment on above: Order Comment: Speci men Type: BLOOD SPECIMEN Ordering Facility: [facility] Address: [address] [place] [address] Performed By: #### 4 537-7, 02100-5 #### [facility] CLIA [id number] [address] [place] [address] [place] Platelet mean volume (Bld) [Entitic vol] 9.9 fL Normal 9.0-12.7 [facility] Comment on above: Order Comment: Speci men Type: BLOOD SPECIMEN Ordering Facility: [facility] Address: [address] [place] [address] Performed By: #### 4 537-7, 02626-9 #### [facility] CLIA [id number] [address] [place] [address] [place] Platelets (Bld) [#/Vol] 218 10*3/uL Normal 150-400 [facility] Comment on above: Order Comment: Speci men Type: BLOOD SPECIMEN Ordering Facility: [facility] Address: [address] [place] [address] Performed By: #### 4 537-7, 02799-3 #### [facility] CLIA [id number] [address] [place] [address] [place] RBC (Bld) [#/Vol] 5.15 10*6/uL Normal 3.90-5.20 [facility] Comment on above: Order Comment: Speci men Type: BLOOD SPECIMEN Ordering Facility: [facility] Address: [address] [place] [address] Performed By: #### 4 537-7, 65344-9 #### [facility] CLIA [id number] [address] [place] [address] [place] WBC (Bld) [#/Vol] 7.75 10*3/uL Normal 3.70-11.00 [facility] Comment on above: Order Comment: Speci men Type: BLOOD SPECIMEN Ordering Facility: [facility] Address: [address] [place] [address] Performed By: #### 4 537-7, 64014-0 #### [facility] CLIA [id number] [address] [place] [address] OF [facility] CNOVon 03-03-2025 CNOV Office Visit (FAMPWS ) BRADYLISANDRA K ([id number]) 1955 F Date Time Provider Department 03/03/25 9:40 AM PEDRO JACOB FAMPWS During your visit today, we recorded the following information about you: Pulse Blood pressure Weight Height 63/minute 132/72 125.6 kg 1.67 m Pedro Jacob MD 03/03/2025 1:05 PM Signed Lisandra Carbajal Brady is a 69 year old female here for a Medicare wellness visit. Medicare Health Risk Assessment General Health Fair Exercise: Minutes/Day 30 min Exercise: Days/Week 3 days Alcohol: Daily Use Never Alcohol: Drinks/Day Patient does not drink Alcohol: 6 or more drinks Never Feel off balance No Concerns: Teeth/Dentures No Concerns: Sexual function Decline Troubled by feelings Stressed; Irritable Frequency: Eating healthy diet Several days ADLs requiring help Housework; Sitting or standing Safety precautions in home/vehicle Yes Smoke, vape, chews tobacco No Difficulty hearing Yes, I wear a hearing aid Difficulty seeing No Current Providers Specialists: I have reviewed specialist-related care of the patient in the medical record. Current care team: Patient Care Team: Pedro Jacob MD as PCP - General (Family Medicine) Myrna Odell APRN.CNP as Campus Rep (Family Medicine) Suppan, Anika A, HIGHWAY TECHNICIAN.BEHAVIORAL CONSULTANT as Campus Rep (Family Medicine) Optho: Dr Ram. Cardiology: Dr Cheema Pulmonary: [facility] GASTROENTEROLOGY: Olga Valdovinos, HIGHWAY TECHNICIANJessika Traylor, ROAD PACKER OPERATOR Dr [place]ton, surgeon. Medical/Family history review Reviewed and updated problem list, medical/surgical/famil y/social history, medications, and allergies. Opioid use review Opioid Medications (last 90 days) No data to display Anxiety/Depression screening PHQ-2 Score: 0 FLAKITA-7 Score: 4 (Minimal Anxiety) Recommendation: no further intervention at this time Cognitive screening Attempted bach. Will resend Cognitive screening reviewed and Patient declined Mini-Cog test. Functional Observation Was the patient's Timed Up AND Go test unsteady or >= 12 seconds? No Advance Care Planning Patient did not wish or was not able to name a surrogate decision maker or provide an advance care plan Measurements BP 132/72 Pulse 63 Ht 167 cm (5' 5.75) Wt 125.6 kg (277 lb) SpO2 96% BMI 45.05 kg/m? Vision Screening: Follows with optometry/ophthalmolog y ADDITIONAL INFO: Annual Wellness Exam: - Last seen by cardiology in the fall; next appointment scheduled for June. - Last echocardiogram in 2021 showed normal left ventricular systolic function with EF of 55%, stage 1 diastolic dysfunction, and pulmonary artery pressure of 24 mmHg. - Recently seen by pulmonary; received a new CPAP this year. - Last labs with GI in December. - Family history of colon cancer; father from it. - No new bowel changes or blood in stools; reports ribbon-like stools more frequently than before. - No issues with balance, teeth, or dentures. - Vision is 20/20 after cataract surgery last year; still requires readers. - Hearing aid is effective. - No issues with urination or nocturia. - No chest pain, dizziness, or palpitations. - No cough or wheezing. - No tobacco use. - No alcohol consumption. - No depression or anhedonia. - No medical living will. Dyspnea: - Dyspnea on exertion worsening over the past few weeks. - Aggravated by heat; less severe in air-conditioned environments. - Nocturnal dyspnea not reported. - No associated chest pain, dizziness, or palpitations. Edema: - Bilateral lower extremity edema worsening over the past 2-3 weeks. - Edema extends up to the knees, more pronounced in the right leg. - Edema reduces overnight but not as quickly as before. - No associated chest pain, dizziness, or palpitations. Psoriatic Arthritis: - Psoriasis improved with fish oil or krill supplements. - Arthritis symptoms worsening, with nodules and joint deformities in hands, ankle, and toes. - Previous unsatisfactory experience with rheumatology. NAFLD: - Last seen by GI 6-7 months ago; considering resuming follow-up. - Previous ultrasounds showed fatty liver with poor visualization due to interference. ELVER: - Using CPAP consistently; no sleep without it. Anxiety: - Chronic stress related to a long-term relationship. - No current need for counseling or medication changes. Lifestyle: - Exercises 30 minutes, 3 days a week in the summer; inactive in winter. - Stress eater; reports overeating. - No unexpected weight gain; attributes weight changes to diet. - Follows safety precautions in home and vehicle. ROS: Constitutional: (+) fatigue, (-) unexpected weight gain Eyes: (-) visual disturbance Ears/Nose/Mouth/Throat : (-) dental problems, (-) hearing difficulty Neck: (-) neck masses Cardiovascular: (+) intermittent chest discomfort, (+) bilateral lower extremity (more content not included)... Normal [facility] CRP SerPl-ncon 03-03-2025 CRP [Mass/Vol] mg/L Normal <0.9 [facility] Comment on above: Order Comment: Speci men Type: BLOOD SPECIMEN Ordering Facility: [facility] Address: [address] [place] [address] Performed By: #### 3 4528-0 #### [facility] CLIA [id number] [address] [place] [address] [place] Comprehensive metabolic 2000 panelon 03-03-2025 Albumin [Mass/Vol] 4.8 g/dL 3.9 - 4.9 g/dL [facility] ALP [Catalytic activity/Vol] 98 U/L 34 - 123 U/L [facility] ALT [Catalytic activity/Vol] 41 U/L High 7 - 38 U/L [facility] Anion gap [Moles/Vol] 14 mmol/L 8 - 15 mmol/L [facility] AST [Catalytic activity/Vol] 37 U/L High 13 - 35 U/L [facility] Bilirubin [Mass/Vol] 0.6 mg/dL 0.2 - 1.3 mg/dL [facility] Calcium [Mass/Vol] 9.8 mg/dL 8.5 - 10.2 mg/dL [facility] Chloride [Moles/Vol] 102 mmol/L 98 - 107 mmol/L [facility] CO2 [Moles/Vol] 23 mmol/L 22 - 30 mmol/L [facility] Creatinine [Mass/Vol] 1 mg/dL High 0.58 - 0.96 mg/dL [facility] GFR/1.73 sq M.predicted among non-blacks MDRD (S/P/Bld) [Vol rate/Area] 60 mL/min/{1.73_m2} - PINF [facility] Comment on above: Estimated Glomerular Filtration Rate (eGFR) is calculated using the 2020 CKD-EPI creatinine equation. This equation utilizes serum creatinine, sex, and age as parameters. The creatinine assay has traceable calibration to isotope dilution-mass spectrometry. Refer to KDIGO guidelines for clinical interpretation. In patients with unstable renal function, e.g. those with acute kidney injury, the eGFR may not accurately reflect actual GFR. Glucose [Mass/Vol] 120 mg/dL High 74 - 99 mg/dL [facility] Comment on above: The [place] Diabete s Association (ADA) provides guidance for cutoff values for fasting glucose and random glucose. The ADA defines fasting as no caloric intake for at least 8 hours. Fasting plasma glucose results between 100 to 125 mg/dL indicate increased risk for diabetes (prediabetes). Fasting plasma glucose results greater than or equal to 126 mg/dL meet the criteria for diagnosis of diabetes. In the absence of unequivocal hyperglycemia, results should be confirmed by repeat testing. In a patient with classic symptoms of hyperglycemia or hyperglycemic crisis, random plasma glucose results greater than or equal to 200 mg/dL meet the criteria for diagnosis of diabetes. Reference: Standards of Medical Care in Diabetes 2016, [place] [employer] Association. Diabetes Care. 2016.39(Suppl 1). Interpretation and review of laboratory results Abnormal [facility] Potassium [Moles/Vol] 4.7 mmol/L 3.7 - 5.1 mmol /L [facility] Protein [Mass/Vol] 7.9 g/dL 6.3 - 8.0 g/dL Cl [facility] Sodium [Moles/Vol] 139 mmol/L 136 - 144 mmol/L [facility] Urea nitrogen [Mass/Vol] 21 mg/dL 7 - 21 mg/dL [facility] Albumin [Mass/Vol] 4.8 g/dL Normal 3.9-4.9 [facility] Comment on above: Order Comment: Speci men Type: BLOOD SPECIMEN Ordering Facility: [facility] Address: [address] [place] [address] Performed By: #### 3 4528-0 #### [facility] CLIA [id number] [address] [place] [address] [place] ALP [Catalytic activity/Vol] 98 U/L Normal 34-123 [facility] Comment on above: Order Comment: Speci men Type: BLOOD SPECIMEN Ordering Facility: [facility] Address: [address] [place] [address] Performed By: #### 3 4528-0 #### [facility] CLIA [id number] [address] [place] [address] [place] ALT [Catalytic activity/Vol] 41 U/L High 7-38 [facility] Comment on above: Order Comment: Speci men Type: BLOOD SPECIMEN Ordering Facility: [facility] Address: [address] [place] [address] Performed By: #### 3 4528-0 #### [facility] CLIA [id number] [address] [place] [address] [place] Anion gap [Moles/Vol] 14 mmol/L Normal 8-15 [facility] Comment on above: Order Comment: Speci men Type: BLOOD SPECIMEN Ordering Facility: [facility] Address: [address] [place] [address] Performed By: #### 3 4528-0 #### [facility] CLIA [id number] [address] [place] [address] [place] AST [Catalytic activity/Vol] 37 U/L High 13-35 [facility] Comment on above: Order Comment: Speci men Type: BLOOD SPECIMEN Ordering Facility: [facility] Address: [address] [place] [address] Performed By: #### 3 4528-0 #### [facility] CLIA [id number] [address] [place] [address] [place] Bilirubin [Mass/Vol] 0.6 mg/dL Normal 0.2-1.3 [facility] Comment on above: Order Comment: Speci men Type: BLOOD SPECIMEN Ordering Facility: [facility] Address: [address] [place] [address] Performed By: #### 3 4528-0 #### [facility] CLIA [id number] [address] [place] [address] [place] Calcium [Mass/Vol] 9.8 mg/dL Normal 8.5-10.2 [facility] Comment on above: Order Comment: Speci men Type: BLOOD SPECIMEN Ordering Facility: [facility] Address: [address] [place] [address] Performed By: #### 3 4528-0 #### [facility] CLIA [id number] [address] [place] [address] [place] Chloride [Moles/Vol] 102 mmol/L Normal 98-107 [facility] Comment on above: Order Comment: Speci men Type: BLOOD SPECIMEN Ordering Facility: [facility] Address: [address] [place] [address] Performed By: #### 3 4528-0 #### [facility] CLIA [id number] [address] [place] [address] [place] CO2 [Moles/Vol] 23 mmol/L Normal 22-30 [facility] Comment on above: Order Comment: Speci men Type: BLOOD SPECIMEN Ordering Facility: [facility] Address: [address] [place] [address] Performed By: #### 3 4528-0 #### [facility] CLIA [id number] [address] [place] [address] [place] Creatinine [Mass/Vol] 1.00 mg/dL High 0.58-0.96 [facility] Comment on above: Order Comment: Carol astorga Type: BLOOD SPECIMEN Ordering Facility: [facility] Address: [address] [place] [address] Performed By: #### 3 4528-0 #### [facility] CLIA [id number] [address] [place] [address] [place] Creatinine and Glomerular filtration rate.predicted panel (S/P/Bld) 60 mL/min/1.73m??? Normal >=60 [facility] Comment on above: Order Comment: Carol astorga Type: BLOOD SPECIMEN Ordering Facility: [facility] Address: [address] [place] [address] Result Comment: Yamileth mated Glomerular Filtration Rate (eGFR) is calculated using the 2020 CKD-EPI creatinine equation. This equation utilizes serum creatinine, sex, and age as parameters. The creatinine assay has traceable calibration to isotope dilution-mass spectrometry. Refer to KDIGO guidelines for clinical interpretation. In patients with unstable renal function, e.g. those with acute kidney injury, the eGFR may not accurately reflect actual GFR. Performed By: #### 3 4528-0 #### [facility] CLIA [id number] [address] [place] [address] [place] Glucose [Mass/Vol] 120 mg/dL High 74-99 [facility] Comment on above: Order Comment: Carol astorga Type: BLOOD SPECIMEN Ordering Facility: [facility] Address: [address] [place] [address] Result Comment: The [place] Diabetes Association (ADA) provides guidance for cutoff values for fasting glucose and random glucose. The ADA defines fasting as no caloric intake for at least 8 hours. Fasting plasma glucose results between 100 to 125 mg/dL indicate increased risk for diabetes (prediabetes). Fasting plasma glucose results greater than or equal to 126 mg/dL meet the criteria for diagnosis of diabetes. In the absence of unequivocal hyperglycemia, results should be confirmed by repeat testing. In a patient with classic symptoms of hyperglycemia or hyperglycemic crisis, random plasma glucose results greater than or equal to 200 mg/dL meet the criteria for diagnosis of diabetes. Reference: Standards of Medical Care in Diabetes 2016, [place] Diabetes Association. Diabetes Care. 2016.39(Suppl 1). Performed By: #### 3 4528-0 #### [facility] CLIA [id number] [address] [place] [address] [place] Potassium [Moles/Vol] 4.7 mmol/L Normal 3.7-5.1 [facility] Comment on above: Order Comment: Speci men Type: BLOOD SPECIMEN Ordering Facility: [facility] Address: [address] [place] [address] Performed By: #### 3 4528-0 #### [facility] CLIA [id number] [address] [place] [address] [place] Protein [Mass/Vol] 7.9 g/dL Normal 6.3-8.0 [facility] Comment on above: Order Comment: Speci men Type: BLOOD SPECIMEN Ordering Facility: [facility] Address: [address] [place] [address] Performed By: #### 3 4528-0 #### [facility] CLIA [id number] [address] [place] [address] [place] Sodium [Moles/Vol] 139 mmol/L Normal 136-144 [facility] Comment on above: Order Comment: Speci men Type: BLOOD SPECIMEN Ordering Facility: [facility] Address: [address] [place] [address] Performed By: #### 3 4528-0 #### [facility] CLIA [id number] [address] [place] [address] [place] Urea nitrogen [Mass/Vol] 21 mg/dL Normal 7-21 [facility] Comment on above: Order Comment: Speci men Type: BLOOD SPECIMEN Ordering Facility: [facility] Address: [address] [place] [address] Performed By: #### 3 4528-0 #### [facility] CLIA [id number] [address] [place] [address] [place] ECG COMPLETEon 03-03-2025 ECG COMPLETE Ventricular Rate : 5 9 BPM Atrial Rate : 59 BPM P-R Interval : 166 ms QRS Duration : 72 ms Q-T Interval : 424 ms QTC Calculation(Bazett) : 419 ms Calculated P Martell : 66 degrees Calculated R Martell : 28 degrees Calculated T Martell : 12 degrees SINUS BRADYCARDIA OTHERWISE NORMAL ECG Confirmed by MD TORO QARAB ([id number]) on 03/10/2025 1:30:40 PM NAME : LISANDRA ABREU PID : [id number] : 1955 Gender : Female Race : ORD : [id number] Procedure Date : Mar 03 2025 10:30:30 Edit Date : Mar 10 2025 13:30:42 Diagnosis: SINUS BRADYCARDIA OTHERWISE NORMAL ECG Confirmed by MD TORO QARAB ([id number]) on 03/10/2025 1:30:40 PM Test Reason : Delfino Blankenship Location : 185 : [facility] Overread By : MD TORO QARAB Edited By : MD TORO QARAB Referred By : , Acquired by : Aliza blankenship [facility] ESR Westergren method (Bld) [Velocity]on 03-03-2025 ESR (Bld) [Velocity] 16 mm/h [facility] Interpretation and review of laboratory results Normal [facility] ESR (Bld) [Velocity] 16 mm/h Normal 0-20 [facility] Comment on above: Order Comment: Speci men Type: BLOOD SPECIMEN Ordering Facility: [facility] Address: [address] [place] [address] Performed By: #### 4 537-7, 52767-6 #### [facility] [place] [id number] [address] [place] [address] [place] HbA1c (Bld)on 03-03-2025 Average glucose Estimated from glycated hemoglobin (Bld) [Mass/Vol] 143 mg/dL [facility] Comment on above: eAG: (Estimated aver age glucose) is a calculated value from HgbA1c and is safety representative of the average blood glucose level in the last 2-3 month period. HbA1c (Bld) [Mass fraction] 6.6 % High 4.3 - 5.6 % [facility] Comment on above: [place] Diabetes As sociation guidelines indicate that patients with HgbA1c in the range 5.7-6.4% are at increased risk for development of diabetes, and intervention by lifestyle modification may be beneficial. HgbA1c greater or equal to 6.5% is considered diagnostic of diabetes. Interpretation and review of laboratory results Abnormal [facility] Average glucose Estimated from glycated hemoglobin (Bld) [Mass/Vol] 143 mg/dL Normal [facility] Comment on above: Order Comment: Carol astorga Type: BLOOD SPECIMEN Ordering Facility: [facility] Address: [address] [place] [address] Result Comment: eAG: (Estimated average glucose) is a calculated value from HgbA1c and is safety representative of the average blood glucose level in the last 2-3 month period. Performed By: #### 3 4528-0 #### [facility] CLIA [id number] [address] [place] [address] [place] [facility] HbA1c (Bld) [Mass fraction] 6.6 % High 4.3-5.6 [facility] Comment on above: Order Comment: Carol astorga Type: BLOOD SPECIMEN Ordering Facility: [facility] Address: [address] [place] [address] Result Comment: [place] Diabetes Association guidelines indicate that patients with HgbA1c in the range 5.7-6.4% are at increased risk for development of diabetes, and intervention by lifestyle modification may be beneficial. HgbA1c greater or equal to 6.5% is considered diagnostic of diabetes. Performed By: #### 3 4528-0 #### [facility] CLIA [id number] [address] [place] [address] [place] NT PRO BNPon 03-03-2025 Natriuretic peptide.B prohormone N-Terminal [Mass/Vol] 95 pg/mL NINF - 125 pg/mL [facility] NT-proBNP SerPl-mCncon 03-03 Natriuretic peptide.B prohormone N-Terminal [Mass/Vol] 95 pg/mL Normal <125 [facility] Comment on above: Order Comment: Speci men Type: BLOOD SPECIMEN Ordering Facility: [facility] Address: [address] [place] [address] Performed By: #### 3 4528-0 #### [facility] CLIA [id number] [address] [place] [address] [place] No Panel Informationon 03-03 Interpretation and review of laboratory results Normal [facility] RHEUMATOID FACTORon 03-03-20 25 Rheumatoid factor Qn 12 [IU]/mL NINF [facility] Rheumatoid fact SerPl-aCncon 03-03-2025 Rheumatoid factor Qn 12 [IU]/mL Normal <16 [facility] Comment on above: Order Comment: Speci men Type: BLOOD SPECIMEN Ordering Facility: [facility] Address: [address] [place] [address] Performed By: #### 3 4528-0 #### [facility] CLIA [id number] [address] [place] [address] [place] XR CHEST 2V FRONTAL/LATon XR CHEST 2V FRONTAL/LAT * * *Final Report* * * DATE OF EXAM: Mar 03 2025 11:33AM WOX [id number] - XR CHEST 2V FRONTAL/LAT / PROCEDURE REASON: SOB (shortness of breath) * * * * Physician Interpretation * * * * EXAMINATION: CHEST RADIOGRAPH (2 VIEW FRONTAL and LATERAL) CLINICAL HISTORY: SOB (shortness of breath) MQ: [id number]_6 EXAM DATE/TIME: 03/03/2025 11:33 AM COMPARISON: No relevant prior studies available. RESULT: Lines, tubes, and devices: None. Lungs and pleura: No consolidation. No lung mass. No pleural effusion. No pneumothorax. Cardiomediastinal silhouette: Normal cardiomediastinal silhouette. Bones and soft tissues: Multilevel degenerative change and osteophytosis. IMPRESSION: No acute radiographic abnormality. Hhas: MARCELA Transcribe Date/Time: Mar 04 2025 8:05A Dictated by : SOLO DUONG MD This examination was interpreted and the report reviewed and electronically signed by: SOLO DUONG MD on Mar 04 2025 8:06AM EST [id number] Normal [facility] CNOVon 02-23-2025 CNOV Office Visit (GENSWS ) LISANDRA ABREU ([id number]) 1955 F Date Time Provider Department 02/23/25 9:00 AM [facility] [place] During your visit today, we recorded the following information about you: Temperature Pulse Respiration Blood pressure 96.9 degrees 66/minute 18/minute 120/74 Weight Height 126.1 kg 1.676 m Alyssa Willis LPN 02/23/2025 2:42 PM Signed REVIEW OF SYSTEMS: General: The patient notes fatigue, denies weight loss, notes weight gain, denies feeling hot, and denies feelings of cold. Eyes: The patient denies glaucoma, notes eye injury/surgery, wears glasses and contacts. Ear/Nose/Throat: The patient notes allergies, denies hayfever, denies ear infections, and denies bloody noses. Cardiovascular: The patient denies chest pain, denies heart disease, notes high blood pressure,denies cardiac stent, denies prior heart attack, denies irregular heart beat, denies high cholesterol, denies poor circulation, denies heart failure, other cardiac issues, denies claudication, notes cold feet, denies peripheral arterial stent. Respiratory: The patient denies tuberculosis, notes pneumonia, denies frequent cough, denies pulmonary embolism, notes shortness of breath, and denies coughing up blood. Gastrointestinal: The patient denies difficulty swallowing, notes acid reflux, denies ulcers, denies vomiting, denies jaundice/hepatitis, denies gallbladder problems, denies black or tarry stools, denies hemorrhoids, denies bleeding from rectum, denies diverticulitis, denies constipation, denies diarrhea, denies loss of stool control, and notes hernias. Kidney/Bladder: The patient denies kidney stones, denies urine infections, and denies bloody urine. Skin: The patient denies a history of skin cancer, denies bleeding/changing moles, and denies a history of skin rash. Neurologic: The patient denies a history of epilepsy/convulsions, denies headaches, denies head/spinal injuries, and notes stroke/TIA. Psychiatric: The patient denies psychiatric medications, denies depression, and denies voices, denies substance abuse. Endocrine: The patient denies thyroid disorders, notes diabetes, and denies hormonal problems. Hematologic: The patient notes a history of bruising, denies bleeding, and denies anemia, denies blood clots. Infections: The patient notes a history of measles and mumps, denies rheumatic fever, and denies sexually transmitted diseases. Musculoskeletal: The patient notes back pain/injury, notes back problems, notes sciatica, notes knee/foot trouble, notes arthritis, or denies gout. When was patient's last Mammogram screening? 02/17/2025 Last Colonoscopy: N/A DEQUAN Mahoney Daniel P, MD 02/23/2025 2:42 PM Signed HISTORY AND PHYSICAL - BREAST COMPLAINT Lisandra Abreu 1955 REFERRING PHYSICIAN: Pedro Jacob MD CHIEF COMPLAINT: Abnormal mammogram (primary encounter diagnosis) HPI: The patient is a 69 year old female with a complaint of an abnormal mammogram. The patient had a mammogram with ultrasound on 02/17/25 which demonstrated : The 0.4 cm lesion in the right breast at 3 o'clock, retroareolar region is suspicious for malignancy. Ultrasound-guided biopsy is recommended. There are multiple additional similar appearing smaller lesion in the subareolar region and inferior breast. Mammographically these appear stable since 11/09/21. Further management of these lesions should be guided by biopsy result. The patient denies a history of breast masses. She does perform a self breast exam routinely. She notes no skin changes. She denies nipple discharge. She notes no axillary masses. She notes no family history of breast problems. She notes no significant breast trauma or breast difficulties in the past. The patient is being seen by me today at the request of Dr. Pedro Jacob MD for my opinion and advice regarding Abnormal mammogram (primary encounter diagnosis). PAST MEDICAL HISTORY Diagnosis Date Arthritis Diabetes (HCC) Family history of colon cancer Hx of colonic polyps Hypertension Lichen sclerosus et atrophicus ELVER (obstructive sleep apnea) uses cpap. sees Dr. Walters. Snoring TIA (transient ischemic attack) 2014 PAST SURGICAL HISTORY Procedure Laterality Date BACK SURGERY HX BREAST BX NEEDLE CORE LEFT Left 06/19/2022 ultrasound guided needle core biopsy left breast BREAST SURGERY HX 07/11/2022 left breast lumpectomy COLONOSCOPY FLX DX W/COLLJ SPEC WHEN PFRMD 08/25/2015 Colonoscopy COLONOSCOPY FLX DX W/COLLJ SPEC WHEN PFRMD 02/25/2020 Colonoscopy 5 yr interval ESOPHAGOGASTRODUODENOS COPY TRANSORAL DIAGNOSTIC 02/25/2020 esophagitis, intestinal metaplasia on stomach biopsies. Repeat in 2-3 years HAND SURGERY HX several on both hands HYSTERECTOMY HX with subsequent BSO KIDNEY SURGERY HX 1997 left kidney removed (more content not included)... Normal [facility] DBT Breast - right diagnosti c for implanton 02-17-2025 IMPRESSION: The 0.4 cm lesion in the right breast at 3 o'clock, retroareolar region is suspicious for malignancy. Ultrasound-guided biopsy is recommended. There are multiple additional similar appearing smaller lesion in the subareolar region and inferior breast. Mammographically these appear stable since 11/09/21. Further management of these lesions should be guided by biopsy result. BI-RADS Category 4A: Suspicious - Low suspicion for malignancy RISK: Based on the Tyrer-Cuzick (TC) risk assessment model, this patient has a 6.1% lifetime risk of developing breast cancer, meaning they are at average risk for developing breast cancer. However, this is only an estimate based on available history provided on the patient's questionnaire. We encourage all patients to talk with their providers about these results, further recommendations for managing breast health, and appropriate supplemental screening options if the patient has dense breast tissue. Interpreting Radiologist: Brittany Rivera M.D. Electronically signed on: 02/17/2025 Hhas: BRIAN Transcribe Date/Time: Feb 17 2025 1:24P Dictated by: BRITTANY RIVERA MD This examination was interpreted and the report reviewed and electronically signed by: BRITTANY RIVERA MD on Feb 17 2025 2:57PM [facility] DIV[facility] RAD[facility]OLOG[facility] * * *Final Report* * * DATE OF EXAM: Feb 17 2025 1:40PM [facility] 0629 - [facility] FRANNYG Emma NICOLE RT / PROCEDURE REASON: Abnormal mammogram * * * * Physician Interpretation * * * * RESULT: [facility] [address] [place] [address] #[id number] - [facility] DIAG W NICOLE RT #[id number] - [facility] US BREAST LTD RT HISTORY: 69 year-old patient seen for diagnostic evaluation of the finding(s) described on prior mammogram in the right breast. Patient states no personal history of breast cancer. COMPARISON STUDIES: The present examination has been compared to prior imaging studies dated 12/26/2022 (mammogram), 01/30/2023 (ultrasound), 01/30/2023 (mammogram), 01/07/2024 (mammogram) and 01/07/2025 (mammogram). MAMMOGRAM TECHNIQUE: The study was acquired using full field digital technology and interpreted from soft copy. Digital Breast Tomosynthesis (DBT) images were obtained and used to assist in the interpretation of this examination. MAMMOGRAM FINDINGS: There are scattered areas of fibroglandular density. The asymmetry present on the screening mammogram does not persist on additional views and likely represented over lapping fibroglandular tissue. There are multiple asymmetries in the inferior, subareolar region of the right breast. The largest measures around 0.4 cm.These appear stable since 11/09/21 mammogram. ULTRASOUND TECHNIQUE: Targeted ultrasound of the indicated area was performed. Dsouza scale images were saved. ULTRASOUND FINDINGS: Ultrasound demonstrates an oval lesion with circumscribed margins measuring 0.4 cm in the right breast at 3 o'clock, retroareolar region. Internal echotexture is hypoechoic. There are multiple additional smaller similar appearing lesion scattered in the subareolar region measuring 0.2-0.3 cm each, best seen on cine ultrasound images. DIVISION OF RADIOLOGY Provider, Raul Starr - 02/17/2025 * * *Final Report* * * DATE OF EXAM: Feb 17 2025 1:40PM [facility] 0629 - [facility] FRANNYG W NICOLE RT / PROCEDURE REASON: Abnormal mammogram * * * * Physician Interpretation * * * * RESULT: [facility] [address] [place] [address] #[id number] - [facility] MICHAEL RIVERA RT #[id number] - [facility] US BREAST LTD RT HISTORY: 69 year-old patient seen for diagnostic evaluation of the finding(s) described on prior mammogram in the right breast. Patient states no personal history of breast cancer. COMPARISON STUDIES: The present examination has been compared to prior imaging studies dated 12/26/2022 (mammogram), 01/30/2023 (ultrasound), 01/30/2023 (mammogram), 01/07/2024 (mammogram) and 01/07/2025 (mammogram). MAMMOGRAM TECHNIQUE: The study was acquired using full field digital technology and interpreted from soft copy. Digital Breast Tomosynthesis (DBT) images were obtained and used to assist in the interpretation of this examination. MAMMOGRAM FINDINGS: There are scattered areas of fibroglandular density. The asymmetry present on the screening mammogram does not persist on additional views and likely represented over lapping fibroglandular tissue. There are multiple asymmetries in the inferior, subareolar region of the right breast. The largest measures around 0.4 cm.These appear stable since 11/09/21 mammogram. ULTRASOUND TECHNIQUE: Targeted ultrasound of the indicated area was performed. Dsouza scale images were saved. ULTRASOUND FINDINGS: Ultrasound demonstrates an oval lesion with circumscribed margins measuring 0.4 cm in the right breast at 3 o'clock, retroareolar region. Internal echotexture is hypoechoic. There are multiple additional smaller similar appearing lesion scattered in the subareolar region measuring 0.2-0.3 cm each, best seen on cine ultrasound images. IMPRESSION IMPRESSION: The 0.4 cm lesion in the right breast at 3 o'clock, retroareolar region is suspicious for malignancy. Ultrasound-guided biopsy is recommended. There are multiple additional similar appearing smaller lesion in the subareolar region and inferior breast. Mammographically these appear stable since 11/09/21. Further management of these lesions should be guided by biopsy result. BI-RADS Category 4A: Suspicious - Low suspicion for malignancy RISK: Based on the Tyrer-Cuzick (TC) risk assessment model, this patient has a 6.1% lifetime risk of developing breast cancer, meaning they are at average risk for developing breast cancer. However, this is only an estimate based on available history provided on the patient's questionnaire. We encourage all patients to talk with their providers about these results, further recommendations for managing breast health, and appropriate supplemental screening options if the patient has dense breast tissue. Interpreting Radiologist: Brittany Rivera M.D. Electronically signed on: 02/17/2025 Hhas: BRIAN Transcribe Date/Time: Feb 17 2025 1:24P Dictated by: BRITTANY RIVERA MD This examination was interpreted and the report reviewed and electronically signed by: BRITTANY RIVERA MD on Feb 17 2025 2:57PM EST [facility] NIC DIAG W NICOLE RTon 025 NIC DIAG W NICOLE RT * * *Final Report* * * DATE OF EXAM: Feb 17 2025 1:40PM [facility] 0629 - NIC DIAG W NICOLE RT / PROCEDURE REASON: Abnormal mammogram * * * * Physician Interpretation * * * * RESULT: [place] [address] #[id number] - NIC DIAG W NICOLE RT #[id number] - [facility] BREAST LTD RT HISTORY: 69 year-old patient seen for diagnostic evaluation of the finding(s) described on prior mammogram in the right breast. Patient states no personal history of breast cancer. COMPARISON STUDIES: The present examination has been compared to prior imaging studies dated 12/26/2022 (mammogram), 01/30/2023 (ultrasound), 01/30/2023 (mammogram), 01/07/2024 (mammogram) and 01/07/2025 (mammogram). MAMMOGRAM TECHNIQUE: The study was acquired using full field digital technology and interpreted from soft copy. Digital Breast Tomosynthesis (DBT) images were obtained and used to assist in the interpretation of this examination. MAMMOGRAM FINDINGS: There are scattered areas of fibroglandular density. The asymmetry present on the screening mammogram does not persist on additional views and likely represented over lapping fibroglandular tissue. There are multiple asymmetries in the inferior, subareolar region of the right breast. The largest measures around 0.4 cm.These appear stable since 11/09/21 mammogram. ULTRASOUND TECHNIQUE: Targeted ultrasound of the indicated area was performed. Dsouza scale images were saved. ULTRASOUND FINDINGS: Ultrasound demonstrates an oval lesion with circumscribed margins measuring 0.4 cm in the right breast at 3 o'clock, retroareolar region. Internal echotexture is hypoechoic. There are multiple additional smaller similar appearing lesion scattered in the subareolar region measuring 0.2-0.3 cm each, best seen on cine ultrasound images. IMPRESSION: The 0.4 cm lesion in the right breast at 3 o'clock, retroareolar region is suspicious for malignancy. Ultrasound-guided biopsy is recommended. There are multiple additional similar appearing smaller lesion in the subareolar region and inferior breast. Mammographically these appear stable since 11/09/21. Further management of these lesions should be guided by biopsy result. BI-RADS Category 4A: Suspicious - Low suspicion for malignancy RISK: Based on the Tyrer-Cuzick (TC) risk assessment model, this patient has a 6.1% lifetime risk of developing breast cancer, meaning they are at average risk for developing breast cancer. However, this is only an estimate based on available history provided on the patient's questionnaire. We encourage all patients to talk with their providers about these results, further recommendations for managing breast health, and appropriate supplemental screening options if the patient has dense breast tissue. Interpreting Radiologist: Brittany Rivera M.D. Electronically signed on: 02/17/2025 Hhas: BRIAN Transcribe Date/Time: Feb 17 2025 1:24P Dictated by: BRITTANY RIVERA MD This examination was interpreted and the report reviewed and electronically signed by: BRITTANY RIVERA MD on Feb 17 2025 2:57PM EST [id number] Normal [facility] US BREAST LTD RTon 02-17 [facility] US BREAST LTD RT * * *Final Report* * * DATE OF EXAM: Feb 17 2025 2:10PM [facility] 0594 - [facility] US BREAST LTD RT / PROCEDURE REASON: Abnormal mammogram * * * * Physician Interpretation * * * * [place] [address] #[id number] - [facility] MICHAEL Carter NICOLE RT #[id number] - [facility] US BREAST LTD RT HISTORY: 69 year-old patient seen for diagnostic evaluation of the finding(s) described on prior mammogram in the right breast. Patient states no personal history of breast cancer. COMPARISON STUDIES: The present examination has been compared to prior imaging studies dated 12/26/2022 (mammogram), 01/30/2023 (ultrasound), 01/30/2023 (mammogram), 01/07/2024 (mammogram) and 01/07/2025 (mammogram). MAMMOGRAM TECHNIQUE: The study was acquired using full field digital technology and interpreted from soft copy. Digital Breast Tomosynthesis (DBT) images were obtained and used to assist in the interpretation of this examination. MAMMOGRAM FINDINGS: There are scattered areas of fibroglandular density. The asymmetry present on the screening mammogram does not persist on additional views and likely represented over lapping fibroglandular tissue. There are multiple asymmetries in the inferior, subareolar region of the right breast. The largest measures around 0.4 cm.These appear stable since 11/09/21 mammogram. ULTRASOUND TECHNIQUE: Targeted ultrasound of the indicated area was performed. Dsouza scale images were saved. ULTRASOUND FINDINGS: Ultrasound demonstrates an oval lesion with circumscribed margins measuring 0.4 cm in the right breast at 3 o'clock, retroareolar region. Internal echotexture is hypoechoic. There are multiple additional smaller similar appearing lesion scattered in the subareolar region measuring 0.2-0.3 cm each, best seen on cine ultrasound images. IMPRESSION: The 0.4 cm lesion in the right breast at 3 o'clock, retroareolar region is suspicious for malignancy. Ultrasound-guided biopsy is recommended. There are multiple additional similar appearing smaller lesion in the subareolar region and inferior breast. Mammographically these appear stable since 11/09/21. Further management of these lesions should be guided by biopsy result. BI-RADS Category 4A: Suspicious - Low suspicion for malignancy RISK: Based on the Tyrer-Cuzick (TC) risk assessment model, this patient has a 6.1% lifetime risk of developing breast cancer, meaning they are at average risk for developing breast cancer. However, this is only an estimate based on available history provided on the patient's questionnaire. We encourage all patients to talk with their providers about these results, further recommendations for managing breast health, and appropriate supplemental screening options if the patient has dense breast tissue. Interpreting Radiologist: Brittany Rivera M.D. Electronically signed on: 02/17/2025 Hhas: BRIAN Transcribe Date/Time: Feb 17 2025 1:59P Dictated by : BRITTANY RIVERA MD This examination was interpreted and the report reviewed and electronically signed by: BRITTANY RIVERA MD on Feb 17 2025 2:57PM EST [id number] Normal [facility] No Panel InformationOrdered By: [facility] Provider on 02-17-2025 [facility] No Panel Informationon 02-17 Radiology Study observation (narrative) [facility] US Breast - right limitedon 02-17-2025 IMPRESSION: The 0.4 cm lesion in the right breast at 3 o'clock, retroareolar region is suspicious for malignancy. Ultrasound-guided biopsy is recommended. There are multiple additional similar appearing smaller lesion in the subareolar region and inferior breast. Mammographically these appear stable since 11/09/21. Further management of these lesions should be guided by biopsy result. BI-RADS Category 4A: Suspicious - Low suspicion for malignancy RISK: Based on the Tyrer-Cuzick (TC) risk assessment model, this patient has a 6.1% lifetime risk of developing breast cancer, meaning they are at average risk for developing breast cancer. However, this is only an estimate based on available history provided on the patient's questionnaire. We encourage all patients to talk with their providers about these results, further recommendations for managing breast health, and appropriate supplemental screening options if the patient has dense breast tissue. Interpreting Radiologist: Brittany Rivera M.D. Electronically signed on: 02/17/2025 Hhas: BRIAN Transcribe Date/Time: Feb 17 2025 1:59P Dictated by : BRITTANY RIVERA MD This examination was interpreted and the report reviewed and electronically signed by: BRITTANY RIVERA MD on Feb 17 2025 2:57PM EST DIVISION OF RADIOLOGY * * *Final Report* * * DATE OF EXAM: Feb 17 2025 2:10PM [facility] 0594 - NIC US BREAST [facility] RT / PROCEDURE REASON: Abnormal mammogram * * * * Physician Interpretation * * * * [facility] [address] [place] [address] #[id number] - NIC FRANNYG W NICOLE RT #[id number] - [facility] Signifyd BREAST LTD RT HISTORY: 69 year-old patient seen for diagnostic evaluation of the finding(s) described on prior mammogram in the right breast. Patient states no personal history of breast cancer. COMPARISON STUDIES: The present examination has been compared to prior imaging studies dated 12/26/2022 (mammogram), 01/30/2023 (ultrasound), 01/30/2023 (mammogram), 01/07/2024 (mammogram) and 01/07/2025 (mammogram). MAMMOGRAM TECHNIQUE: The study was acquired using full field digital technology and interpreted from soft copy. Digital Breast Tomosynthesis (DBT) images were obtained and used to assist in the interpretation of this examination. MAMMOGRAM FINDINGS: There are scattered areas of fibroglandular density. The asymmetry present on the screening mammogram does not persist on additional views and likely represented over lapping fibroglandular tissue. There are multiple asymmetries in the inferior, subareolar region of the right breast. The largest measures around 0.4 cm.These appear stable since 11/09/21 mammogram. ULTRASOUND TECHNIQUE: Targeted ultrasound of the indicated area was performed. Dsouza scale images were saved. ULTRASOUND FINDINGS: Ultrasound demonstrates an oval lesion with circumscribed margins measuring 0.4 cm in the right breast at 3 o'clock, retroareolar region. Internal echotexture is hypoechoic. There are multiple additional smaller similar appearing lesion scattered in the subareolar region measuring 0.2-0.3 cm each, best seen on cine ultrasound images. DIVISION OF RADIOLOGY Provider, [facility] - 02/17/2025 * * *Final Report* * * DATE OF EXAM: Feb 17 2025 2:10PM [facility] 0594 - [facility] Signifyd BREAST LTD RT / PROCEDURE REASON: Abnormal mammogram * * * * Physician Interpretation * * * * [facility] [address] [place] [address] #[id number] - [facility][id number] - [facility] BREAST LTD RT HISTORY: 69 year-old patient seen for diagnostic evaluation of the finding(s) described on prior mammogram in the right breast. Patient states no personal history of breast cancer. COMPARISON STUDIES: The present examination has been compared to prior imaging studies dated 12/26/2022 (mammogram), 01/30/2023 (ultrasound), 01/30/2023 (mammogram), 01/07/2024 (mammogram) and 01/07/2025 (mammogram). MAMMOGRAM TECHNIQUE: The study was acquired using full field digital technology and interpreted from soft copy. Digital Breast Tomosynthesis (DBT) images were obtained and used to assist in the interpretation of this examination. MAMMOGRAM FINDINGS: There are scattered areas of fibroglandular density. The asymmetry present on the screening mammogram does not persist on additional views and likely represented over lapping fibroglandular tissue. There are multiple asymmetries in the inferior, subareolar region of the right breast. The largest measures around 0.4 cm.These appear stable since 11/09/21 mammogram. ULTRASOUND TECHNIQUE: Targeted ultrasound of the indicated area was performed. Dsouza scale images were saved. ULTRASOUND FINDINGS: Ultrasound demonstrates an oval lesion with circumscribed margins measuring 0.4 cm in the right breast at 3 o'clock, retroareolar region. Internal echotexture is hypoechoic. There are multiple additional smaller similar appearing lesion scattered in the subareolar region measuring 0.2-0.3 cm each, best seen on cine ultrasound images. IMPRESSION IMPRESSION: The 0.4 cm lesion in the right breast at 3 o'clock, retroareolar region is suspicious for malignancy. Ultrasound-guided biopsy is recommended. There are multiple additional similar appearing smaller lesion in the subareolar region and inferior breast. Mammographically these appear stable since 11/09/21. Further management of these lesions should be guided by biopsy result. BI-RADS Category 4A: Suspicious - Low suspicion for malignancy RISK: Based on the Tyrer-Cuzick (TC) risk assessment model, this patient has a 6.1% lifetime risk of developing breast cancer, meaning they are at average risk for developing breast cancer. However, this is only an estimate based on available history provided on the patient's questionnaire. We encourage all patients to talk with their providers about these results, further recommendations for managing breast health, and appropriate supplemental screening options if the patient has dense breast tissue. Interpreting Radiologist: rBittany Rivera M.D. Electronically signed on: 02/17/2025 Hhas: BRIAN Transcricruzito Date/Time: Feb 17 2025 1:59P Dictated by : BRITTANY RIVERA MD This examination was interpreted and the report reviewed and electronically signed by: BRITTANY RIVERA MD on Feb 17 2025 2:57PM EST [facility] LISANDRA ABREU ([id number]) 1955 F Date Time Provider Department 01/11/25 PEDRO JACOB [facility] During your visit today, we recorded the following information about you: Pedro Jacob MD 01/11/2025 2:40 PM Signed Mammogram needs additional views of the right breast. Please set up. Ordered placed Thalia López RN 01/11/2025 4:55 PM Signed Pt called and is notified of providers results and instructions. Pt voices understanding. Transferred to scheduled to set up appt for additional imaging US and mammogram for R breast. Thalia López RN Allergies As of Date: 01/11/2025 Noted Allergy Reaction ERYTHROMYCIN 02/20/2017 2 - Rash MIROSLAVA INHIBITORS 07/13/2021 3 - Cough CARVEDILOL 07/13/2021 5 - Intolerance Comments: Slight headache, leg cramps, sweating CORGARD (NADOLOL) 07/13/2021 5 - Intolerance Comments: Heavy chest, sweating, hot flashes DILTIAZEM 07/13/2021 5 - Intolerance Comments: Dizzy/ heart thumping, heard to breathe METOPROLOL 07/13/2021 5 - Intolerance Comments: Chest tight, hot flash/sweat TETRACYCLINE HCL (BULK) 08/22/2015 4 - Hives Comments: blisters VERAPAMIL 07/13/2021 5 - Intolerance Comments: Short of breath, fatigue, indigestion, rash Date Reviewed: 08/19/2024 Reviewed by: Vianney Blankenship LPN - Fully Assessed Reason for Visit: Results [95] Primary Visit Diagnosis:Abnormal mammogram [R92.8] Order(s):[facility] DIAGNOSTIC RIGHT [[id number]] Order #: [id number] FUTURE BREAST LTD RIGHT [[id number]] Order #: [id number] FUTURE Prescriptions as of 01/11/2025 - clobetasol (TEMOVATE) 0.05 % ointment Apply 1 application to affected area as directed. TO AFFECTED AREA 1-2 times a week for control of lichen sclerosis. - atenolol (TENORMIN) 50 mg tablet Take 1 tablet by mouth once daily. - hydroCHLOROthiazide 25 mg tablet Take 1 tablet by mouth once daily. - meloxicam (MOBIC) 15 mg tablet Take 1 tablet by mouth once daily. - L.acidophilus-L.rhamno gypsy (FLORAJEN WOMEN) 15 billion cell capsule Take 1 capsule by mouth once daily. FLORAJEN WOMEN. If on antibiotic, take at least 1-2 hours before or after antibiotic. KEEP REFRIGERATED - metFORMIN ER (FORTAMET) 500 mg 24 hr tablet Take 1 tablet by mouth daily with breakfast. May substitute - atorvastatin (LIPITOR) 80 mg tablet Take 1 tablet by mouth once daily. - blood sugar diagnostic (BLOOD GLUCOSE TEST) test strip Test blood sugar(s) 1 times daily. Dx: Type 2 DM - Controlled E11.9 Insulin: No - estradiol (ESTRACE) 0.01 % (0.1 mg/gram) vaginal cream Use 1 g vaginally two times a week. Insert 1 gm vaginally every night x 14 nights then insert 1 gm vaginally twice weekly - losartan (COZAAR) 100 mg tablet Take 1 tablet by mouth once daily. - Lancets lancets Test blood sugar(s) 1 times daily. Dx: Type 2 DM - Controlled E11.9 Insulin: No - amLODIPine (NORVASC) 10 mg tablet Take 10 mg by mouth once daily. Going to double check dosage. - Cholecalciferol, Vitamin D3, 50 mcg (2,000 unit) cap Take 50 capsules by mouth. - aspirin, enteric coated (ASPIRIN, ENTERIC COATED) 81 mg EC tablet Take 81 mg by mouth once daily. - Clobetasol taper - compound [facility] Clobetasol 0.07% ointment. Use to affected area twice daily x 4 weeks then at bedtime x 4 weeks then 1-2 times per week. - FOLIC ACID/MULTIVIT-MIN/LUTE IN (CENTRUM SILVER ORAL) Take by mouth once daily. - Biotin 10,000 mcg cap Take 5,000 mcg by mouth once daily. - KRILL OIL ORAL Take 800 mg by mouth once daily. 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] 02/20/2017 07/13/2021 Primary hypertension [I10] 07/13/2021 Diabetes mellitus type 1, controlled, without c*07/13/2021 07/13/2021 Family history of renal cancer [Z80.51] 07/13/2021 07/13/2021 Lichen sclerosus [L90.0] 07/13/2021 Psoriatic arthritis (HCC) [L40.50] 07/13/2021 Psoriasis [L40.9] 07/13/2021 02/14/2024 Family history of colon cancer [Z80.0] ELVER (obstructive sleep apnea) [G47.33] TIA (transient ischemic attack) [G45.9] 07/13/2021 Controlled type 2 diabetes mellitus without com*07/13/2021 History of renal cell cancer [Z85.528] 07/13/2021 Pulmonary HTN (HCC) [I27.20] 01/18/2022 HERRON (dyspnea on exertion) [R06.09] 07/05/2022 08/01/2022 Nonobstructive atherosclerosis of coronary paige*07/05/2022 CHF (congestive heart failure) (HCC) [I50.9] 07/05/2022 Aortic valve stenosis [I35.0] 07/05/2022 Obesity, Class III, BMI >= 40 [E66.813] 07/11/2022 08/02/2023 Subareolar duct papillomatosis, 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 Normal [facility] AFP SerPl-mCncon 01-07-2025 AFP [Mass/Vol] 4.78 ng/mL Normal <9.00 [facility] Comment on above: Order Comment: Speci men Type: BLOOD SPECIMENOrdering Facility: [facility] Address: [address] [place] [address] Result Comment: The Alpha-Fetoprotein test was performed using the Secpanel DxI immunoenzymatic assay. Results obtained with different assay methods or kits cannot be used interchangeably. Performed By: #### 1 834-1 ####[facility] [id number] [place] [address] [place] CBC panel Auto (Bld)on 01-07 Erythrocyte distribution width (RBC) [Ratio] 14.4 % Normal 11.5-15.0 [facility] Comment on above: Order Comment: Speci men Type: BLOOD SPECIMEN Ordering Facility: [facility] Address: [address] [place] [address] Performed By: #### 3 4528-0 #### [facility] CLIA [id number] [address] [place] [address] [place] Hematocrit (Bld) [Volume fraction] 41.6 % Normal 36.0-46.0 [facility] Comment on above: Order Comment: Speci men Type: BLOOD SPECIMEN Ordering Facility: [facility] Address: [address] [place] [address] Performed By: #### 3 4528-0 #### [facility] CLIA [id number] [address] [place] [place] [address] [place] Hemoglobin (Bld) [Mass/Vol] 13.5 g/dL Normal 11.5-15.5 [facility] Comment on above: Order Comment: Speci men Type: BLOOD SPECIMEN Ordering Facility: [facility] Address: [address] [place] [address] Performed By: #### 3 4528-0 #### [facility] CLIA [id number] [address] [place] [address] [place] MCH (RBC) [Entitic mass] 28.0 pg Normal 26.0-34.0 [facility] Comment on above: Order Comment: Speci men Type: BLOOD SPECIMEN Ordering Facility: [facility] Address: [address] [place] [address] Performed By: #### 3 4528-0 #### [facility] CLIA [id number] [address] [place] [address] [place] MCHC (RBC) [Mass/Vol] 32.5 g/dL Normal 30.5-36.0 [facility] Comment on above: Order Comment: Speci men Type: BLOOD SPECIMEN Ordering Facility: [facility] Address: [address] [place] [address] Performed By: #### 3 4528-0 #### [facility] CLIA [id number] [address] [place] [address] [place] MCV (RBC) [Entitic vol] 86.1 fL Normal 80.0-100.0 [facility] Comment on above: Order Comment: Speci men Type: BLOOD SPECIMEN [facility]ing Facility: [facility] Address: [address] [place] [address] Performed By: #### 3 4528-0 #### [facility] CLIA [id number] [address] [place] [address] [place] Nucleated RBC (Bld) [#/Vol] 10*3/uL Normal <0.01 [facility] Comment on above: Order Comment: Speci men Type: BLOOD SPECIMEN Ordering Facility: [facility] Address: [address] [place] [address] Performed By: #### 3 4528-0 #### [facility] CLIA [id number] [address] [place] [address] [place] Platelet mean volume (Bld) [Entitic vol] 9.6 fL Normal 9.0-12.7 [facility] Comment on above: Order Comment: Speci men Type: BLOOD SPECIMEN [facility]ing Facility: [facility] Address: [address] [place] [address] Performed By: #### 3 4528-0 #### [facility] CLIA [id number] [address] [place] [address] [place] Platelets (Bld) [#/Vol] 198 10*3/uL Normal 150-400 [facility] Comment on above: Order Comment: Speci men Type: BLOOD SPECIMEN [facility]ing Facility: [facility] Address: [address] [place] [address] Performed By: #### 3 4528-0 #### [facility] CLIA [id number] [address] [place] [address] [place] RBC (Bld) [#/Vol] 4.83 10*6/uL Normal 3.90-5.20 [facility] Comment on above: Order Comment: Speci men Type: BLOOD SPECIMEN Ordering Facility: [facility] Address: [address] [place] [address] Performed By: #### 3 4528-0 #### [facility] CLIA [id number] [address] [place] [address] [place] WBC (Bld) [#/Vol] 7.05 10*3/uL Normal 3.70-11.00 [facility] Comment on above: Order Comment: Speci men Type: BLOOD SPECIMEN Ordering Facility: [facility] Address: [address] [place] [address] Performed By: #### 3 4528-0 #### [facility] CLIA [id number] [address] [place] [address] [place] Comprehensive metabolic 2000 panelon 01-07-2025 Albumin [Mass/Vol] 4.7 g/dL Normal 3.9-4.9 [facility] Comment on above: Order Comment: Speci men Type: BLOOD SPECIMEN Ordering Facility: [facility] Address: [address] [place] [address] Performed By: #### 4 537-7, 00539-6 #### [facility] CLIA [id number] [address] [place] [address] [place] ALP [Catalytic activity/Vol] 91 U/L Normal 34-123 [facility] Comment on above: Order Comment: Speci men Type: BLOOD SPECIMEN Ordering Facility: [facility] Address: [address] [place] [address] Performed By: #### 4 537-7, 57111-9 #### [facility] CLIA [id number] [address] [place] [address] [place] ALT [Catalytic activity/Vol] 39 U/L High 7-38 [facility] Comment on above: Order Comment: Speci men Type: BLOOD SPECIMEN Ordering Facility: [facility] Address: [address] [place] [address] Performed By: #### 4 537-7, 71119-7 #### [facility] CLIA [id number] [address] [place] [address] [place] Anion gap [Moles/Vol] 9 mmol/L Normal 8-15 [facility] Comment on above: Order Comment: Speci men Type: BLOOD SPECIMEN Ordering Facility: [facility] Address: [address] [place] [address] Performed By: #### 4 537-7, 21631-0 #### [facility] CLIA [id number] [address] [place] [address] [place] AST [Catalytic activity/Vol] 34 U/L Normal 13-35 [facility] Comment on above: Order Comment: Speci men Type: BLOOD SPECIMEN Ordering Facility: [facility] Address: [address] [place] [address] Performed By: #### 4 537-7, 52297-1 #### [facility] CLIA [id number] [address] [place] [address] [place] Bilirubin [Mass/Vol] 0.6 mg/dL Normal 0.2-1.3 [facility] Comment on above: Order Comment: Speci men Type: BLOOD SPECIMEN Ordering Facility[facility] Address: [address] [place] [address] Performed By: #### 4 537-7, 41875-5 #### [facility] CLIA [id number] [address] [place] [address] [place] Calcium [Mass/Vol] 10.5 mg/dL High 8.5-10.2 [facility] Comment on above: Order Comment: Speci men Type: BLOOD SPECIMEN [facility] Address: [address] [place] [address] Performed By: #### 4 537-7, 02986-6 #### [facility] CLIA [id number] [address] [place] [address] [place] Chloride [Moles/Vol] 102 mmol/L Normal 98-107 [facility] Comment on above: Order Comment: Speci men Type: BLOOD SPECIMEN Ordering [facility]: [facility] Address: [address] [place] [address] Performed By: #### 4 537-7, 12908-2 #### [facility] CLIA [id number] [address] [place] [address] [place] CO2 [Moles/Vol] 25 mmol/L Normal 22-30 [facility] Comment on above: Order Comment: Speci men Type: BLOOD SPECIMEN [facility]ing Facility: [facility] Address: [address] [place] [address] Performed By: #### 4 537-7, 38175-3 #### [facility] CLIA [id number] [address] [place] [address] [place] Creatinine [Mass/Vol] 0.99 mg/dL High 0.58-0.96 [facility] Comment on above: Order Comment: Speci men Type: BLOOD SPECIMEN [facility]ing Facility: [facility] Address: [address] [place] [address] Performed By: #### 4 537-7, 28981-4 #### [facility] CLIA [id number] [address] [place] [address] [place] Creatinine and Glomerular filtration rate.predicted panel (S/P/Bld) 61 mL/min/1.73m??? Normal >=60 [facility] Comment on above: Order Comment: Carol men Type: BLOOD SPECIMEN [facility]: [facility] Address: [address] [place] [address] Result Comment: Yamileth mated Glomerular Filtration Rate (eGFR) is calculated using the 2020 CKD-EPI creatinine equation. This equation utilizes serum creatinine, sex, and age as parameters. The creatinine assay has traceable calibration to isotope dilution-mass spectrometry. Refer to KDIGO guidelines for clinical interpretation. In patients with unstable renal function, e.g. those with acute kidney injury, the eGFR may not accurately reflect actual GFR. Performed By: #### 4 537-7, 07287-6 #### [facility] CLIA [id number] [address] [place] [address] [place] Glucose [Mass/Vol] 134 mg/dL High 74-99 [facility] Comment on above: Order Comment: Carol men Type: BLOOD SPECIMEN [facility]: [facility] Address: [address] [place] [address] Result Comment: The [place] [employer] Association (ADA) provides guidance for cutoff values for fasting glucose and random glucose. The ADA defines fasting as no caloric intake for at least 8 hours. Fasting plasma glucose results between 100 to 125 mg/dL indicate increased risk for diabetes (prediabetes). Fasting plasma glucose results greater than or equal to 126 mg/dL meet the criteria for diagnosis of diabetes. In the absence of unequivocal hyperglycemia, results should be confirmed by repeat testing. In a patient with classic symptoms of hyperglycemia or hyperglycemic crisis, random plasma glucose results greater than or equal to 200 mg/dL meet the criteria for diagnosis of diabetes. Reference: Standards of Medical Care in Diabetes 2016, [place] [employer]. Diabetes Care. 2016.39(Suppl 1). Performed By: #### 4 537-7, 68422-5 #### [facility] CLIA [id number] [address] [place] [address] [place] Potassium [Moles/Vol] 4.1 mmol/L Normal 3.7-5.1 [facility] Comment on above: Order Comment: Speci men Type: BLOOD SPECIMEN [facility] Address: [address] [place] [address] Performed By: #### 4 537-7, 07584-8 #### [facility] CLIA [id number] [address] [place] [address] [place] Protein [Mass/Vol] 7.5 g/dL Normal 6.3-8.0 [facility] Comment on above: Order Comment: Néstori gauri Type: BLOOD SPECIMEN [facility] Address: [address] [place] [address] Performed By: #### 4 537-7, 15341-3 #### [facility] CLIA [id number] [address] [place] [address] [place] Sodium [Moles/Vol] 136 mmol/L Normal 136-144 [facility] Comment on above: Order Comment: Néstori men Type: BLOOD SPECIMEN [facility] Address: [address] [place] [address] Performed By: #### 4 537-7, 09208-5 #### [facility] CLIA [id number] [address] [place] [address] [place] Urea nitrogen [Mass/Vol] 24 mg/dL High 7-21 [facility] Comment on above: Order Comment: Speci men Type: BLOOD SPECIMEN [facility] Address: [address] [place] [address] Performed By: #### 4 537-7, 08393-6 #### [facility] CLIA [id number] [address] [place] [address] [place] NIC SCREENING W TOMOon 01-07 NIC SCREENING W NICOLE * * *Final Report* * * DATE OF EXAM: Jan 07 2025 11:10AM WRW [id number] - NIC SCREENING W NICOLE / PROCEDURE REASON: Encounter for screening mammogram for malignant neoplasm of breast * * * * Physician Interpretation * * * * RESULT: [place] [address] #[id number] - NIC SCREENING W NICOLE HISTORY: 69 year-old patient seen for screening. Patient is asymptomatic in both breasts. Patient states no personal history of breast cancer. COMPARISON STUDIES: The present examination has been compared to prior imaging studies dated 11/09/2021 (mammogram), 12/26/2022 (mammogram), 01/30/2023 (mammogram) and 01/07/2024 (mammogram). MAMMOGRAM TECHNIQUE: The study was acquired using full field digital technology and interpreted from soft copy. Digital Breast Tomosynthesis (DBT) images were obtained and used to assist in the interpretation of this examination. MAMMOGRAM FINDINGS: There are scattered areas of fibroglandular density. There is a focal asymmetry in the lower inner quadrant of the right breast. No suspicious masses, calcifications or other abnormalities are seen in the left breast. IMPRESSION: The focal asymmetry in the lower inner quadrant of the right breast requires additional evaluation. Diagnostic mammogram with possible ultrasound is recommended. BI-RADS Category 0: Incomplete: Needs Additional Imaging Evaluation RISK: Based on the Tyrer-Cuzick (TC) risk assessment model, this patient has a 6.1% lifetime risk of developing breast cancer, meaning they are at average risk for developing breast cancer. However, this is only an estimate based on available history provided on the patient's questionnaire. We encourage all patients to talk with their providers about these results, further recommendations for managing breast health, and appropriate supplemental screening options if the patient has dense breast tissue. Interpreting Radiologist: Sally Lozada M.D. Electronically signed on: 01/10/2025 Hhas: BRIAN Transcribe Date/Time: Jan 07 2025 10:56A Dictated by: SALLY LOZADA MD This examination was interpreted and the report reviewed and electronically signed by: SALLY LOZADA MD on Jan 10 2025 10:01AM EST [id number] Normal [facility] PT panel Coag (PPP)on 2024 INR Coag (PPP) [Relative time] 1.0 {INR} Normal 0.9-1.3 [facility] Comment on above: Order Comment: Speci men Type: BLOOD SPECIMENOrdering Facility: [facility] Address: [address] [place] [address] Result Comment: Mamie min K Antagonist (VKA) Therapeutic Range: INR 2 to 3 (Target INR of 2.5) Note: For patients treated with VKA drugs, such as warfarin, the [place] [employer] 2012 Guideline recommends a therapeutic INR range of 2 to 3 (target INR of 2.5). This recommendation includes high-risk patients with antiphospholipid syndrome with previous arterial or venous thromboembolism, current-generation mechanical or bioprosthetic aortic heart valve replacement. Note: Patients with mechanical aortic valve replacement and additional risk factors for thromboembolic events (atrial fibrillation, previous thromboembolism, LV dysfunction, hypercoagulable conditions) or an older generation mechanical AVR (i.e., ball in-Cage) or any mechanical MVR should have a INR therapeutic range of 2.5 to 3.5 (target INR of 3). Harpal GH, et al. Chest 2012, 141:7S-47S Reta TOUSSAINT et al. [facility] 2017, 70: 252-289 Performed By: #### 3 4528-0 ####[facility] [id number] [place] [address] [place] PT Coag (PPP) [Time] 10.7 s Normal <13.1 [facility] Comment on above: Order Comment: Speci men Type: BLOOD SPECIMENOrdering Facility: [facility] Address: [address] [place] [place] [id number] Performed By: #### 3 4528-0 ####[facility] [id number] [place] [address] [place] Pulmonary Visit Reporton Pulmonary Visit Report [facility] [place] [id number] [facility] [place] [address] OFFICE VISIT Date of Service: 10/20/24 MR#: [id number] Acct: [id number] Name: LISANDRA ABREU Rep #: [id number] 2 : 1955 Provider: CARO Gonzalez Age/Sex: 69/F Location: [facility].W Status: Signed Assessment and Plan Assessment and Plan (1) ELVER (obstructive sleep apnea): Status: Chronic Comment: CPAP 14 cmH2O (2) Obesity: Status: Chronic Qualifiers: Obesity type: due to excess calories Obesity classification: adult class 3 (BMI >= 40) Serious obesity comorbidity presence: with serious comorbidity Body mass index: BMI 40.0-44.9 Qualified Code(s): E66.813 - Obesity, class 3; E66.01 - Morbid (severe) obesity due to excess calories; Z68.41 - Body mass index [BMI] 40.0-44.9, adult Plan She is using and benefiting from Pap therapy. No indication for titration study at this time. Continue to encourage weight loss. Contact the office for any new or worsening symptoms in the meantime. Follow-up in 1 year. Plan Details Follow Up: 1 Year ([facility]) HPI HPI Comments Details: This patient presents to the office today for follow-up of her obstructive sleep apnea and shortness of breath on exertion. She is ambulatory and currently on room air. She is here today because she was set up with a new machine. She has not been seen in the ED or urgent care for any respiratory illnesses since her last office visit. She has not required any antibiotics or prednisone for any breathing problems. She denies any breath. She denies any cough, sputum production or hemoptysis. She has not had any wheezing, chest tightness, chest pain or palpitations. She also denies any fever, chills or body aches. She is feeling rested. She is not napping. She does not nod off. She denies any dry mouth or morning headaches. She is not having nocturia. Compliance report for the past 30 days shows 100% compliance with an average use of nearly 9 hours per night. Current setting is CPAP 14 cm of water with residual AHI of 2.9 events per hour. Leaks do not appear to be an issue. Intake Vital Signs 11/20/23 06:00 07/16/24 09:31 10/20/24 08:56 Height 5 ft 6 in 5 ft 6 in 5 ft 6 in Weight: 255 lb 273 lb 278 lb BMI 41.1 44.0 44.9 BP 143/76 H 134/69 H 137/81 H Blood Pressure Location Lt radial Lt radial Lt brachial Position Sitting Sitting Sitting Respiration 22 H 16 18 Pulse 64 61 64 Pulse Source Monitor Monitor Monitor Temp 97.5 F L 97.1 F L Temperature Source Temporal Artery Temporal Artery Pulse Oximetry (%) 95 94 Oxygen Delivery Method room air room air Intake Visit Reasons: Pap compliance Ophthalmic Assistant Required: No DME Vendor: Cruz Accompanied by: Self Allergies tetracycline Allergy (Verified 10/20/24 12:50) Rash carvedilol Adverse Reaction (Verified 10/20/24 12:50) Leg cramps, profuse sweating diltiazem Adverse Reaction (Verified 10/20/24 12:50) Heart pounding, dizzy, hard to breathe erythromycin base Adverse Reaction (Verified 10/20/24 12:50) Rash lisinopril Adverse Reaction (Verified 10/20/24 12:50) dry cough metoprolol (From Toprol XL) Adverse Reaction (Verified 10/20/24 12:50) Chest tight all the time verapamil Adverse Reaction (Verified 10/20/24 12:50) really SOB and fatigued all the time, heard pulse in ears Medications ???Medication ???Instructions ???Recorded ???Confirmed ???Type biotin 10,000 mcg capsule 10,000 mcg PO DAILY 04/23/1610/20 History cholecalciferol (vitamin D3) 25 2,000 unit PO DAILY 04/23/1610/20 History mcg (1,000 unit) tablet (Vitamin D3) aspirin 81 mg chewable tablet 81 mg PO DAILY@0800 ##30 04/24/16 10/20/24 Rx atorvastatin 80 mg tablet 80 mg PO QHS #30 TABLETS 04/24/16 10/20/24 Rx hydrochlorothiazide 25 mg tablet 25 mg PO DAILY #0 TABLETS 04/24/16 10/20/24 Rx meloxicam 15 mg tablet 15 mg PO DAILY 03/07/21 10/20/24 H istory metformin 500 mg tablet,extended 500 mg PO DAILY 03/07/21 10/20/24 History release 24 hr nitroglycerin 0.4 mg sublingual 0.4 mg sublingual Q5-15M PRN Chest 03/07/21 10/20/24 History tablet Pain clobetasol 0.05 % topical cream 1 applic topical DAILY PRN 1 10/20/24 History krill 1,000 mg-omega-3 170 mg-dha 1 cap PO DAILY 11/23/21 10/20/24 History 50 mg-epa 80 lu-qoqjfy-foxuj capsule (krill oil) vynintdq-mdawroyoa-qet micidin eye ml ophthalmic (eye) PRN 11/23/21 10/20/24 History drops Lactobacillus acidophilus and 1 cap PO DAILY 01/01/22 10/20/24 H istory rhamnosus 15 billion cell capsule (Florajen Women) kiwykksy-cbh-cillf acid 0.4 1 tab PO DAILY 07/26/22 10/20/24 H istory mg-lycopene 300 mcg-lutein 250 mcg tablet (Centrum Silver) atenolol 50 mg tablet 50 mg PO DAILY #90 tabs 01/29/24 (more content not included)... [facility] 08-24-2024 [facility] Telephone (FAMPWS) LISANDRA ABREU ([id number]) 1955 F Date Time Provider Department 08/24/24 PEDRO JACOB During your visit today, we recorded the following information about you: Nat Washington MA 08/24/2024 10:34 AM Signed ----- Message from Anika Bullock sent at 08/21/2024 3:04 PM EST ----- Cholesterol levels look good on the a atorvastatin 80 mg. Continue losartan for kidney protection from diabetes. Diabetes control is stable and acceptable. Nat Washington MA 08/24/2024 10:58 AM Signed depict message sent to pt Nat Washington MA August 24, 2024 10:58 AM Allergies As of Date: 08/24/2024 Noted Allergy Reaction ERYTHROMYCIN 02/20/2017 2 - Rash MIROSLAVA INHIBITORS 07/13/2021 3 - Cough CARVEDILOL 07/13/2021 5 - Intolerance Comments: Slight headache, leg cramps, sweating CORGARD (NADOLOL) 07/13/2021 5 - Intolerance Comments: Heavy chest, sweating, hot flashes DILTIAZEM 07/13/2021 5 - Intolerance Comments: Dizzy/ heart thumping, heard to breathe METOPROLOL 07/13/2021 5 - Intolerance Comments: Chest tight, hot flash/sweat TETRACYCLINE HCL (BULK) 08/22/2015 4 - Hives Comments: blisters VERAPAMIL 07/13/2021 5 - Intolerance Comments: Short of breath, fatigue, indigestion, rash Date Reviewed: 08/19/2024 Reviewed by: Vianney Blankenship LPN - Fully Assessed Reason for Visit: Results [95] Prescriptions as of 08/24/2024 - blood sugar diagnostic (BLOOD GLUCOSE TEST) test strip Test blood sugar(s) 1 times daily. Dx: Type 2 DM - Controlled E11.9 Insulin: No - estradiol (ESTRACE) 0.01 % (0.1 mg/gram) vaginal cream Use 1 g vaginally two times a week. Insert 1 gm vaginally every night x 14 nights then insert 1 gm vaginally twice weekly - hydroCHLOROthiazide 25 mg tablet Take 1 tablet by mouth once daily. - meloxicam (MOBIC) 15 mg tablet Take 1 tablet by mouth once daily. - atorvastatin (LIPITOR) 80 mg tablet Take 1 tablet by mouth once daily. - clobetasol (TEMOVATE) 0.05 % ointment Apply 1 application to affected area as directed. TO AFFECTED AREA 1-2 times a week for control of lichen sclerosis. - atenolol (TENORMIN) 50 mg tablet Take 1 tablet by mouth once daily. - metFORMIN ER (FORTAMET) 500 mg 24 hr tablet Take 1 tablet by mouth daily with breakfast. May substitute - losartan (COZAAR) 100 mg tablet Take 1 tablet by mouth once daily. - Lancets lancets Test blood sugar(s) 1 times daily. Dx: Type 2 DM - Controlled E11.9 Insulin: No - L. acidophilus-L. rhamnosus 15 billion cell cap Take 1 capsule by mouth once daily. FLORAJEN WOMEN. If on antibiotic, take at least 1-2 hours before or after antibiotic. KEEP REFRIGERATED - amLODIPine (NORVASC) 10 mg tablet Take 10 mg by mouth once daily. Going to double check dosage. - Cholecalciferol, Vitamin D3, 50 mcg (2,000 unit) cap Take 50 capsules by mouth. - aspirin, enteric coated (ASPIRIN, ENTERIC COATED) 81 mg EC tablet Take 81 mg by mouth once daily. - Clobetasol taper - compound [facility] Clobetasol 0.07% ointment. Use to affected area twice daily x 4 weeks then at bedtime x 4 weeks then 1-2 times per week. - FOLIC ACID/MULTIVIT-MIN/LUTE IN (CENTRUM SILVER ORAL) Take by mouth once daily. - Biotin 10,000 mcg cap Take 5,000 mcg by mouth once daily. - KRILL OIL ORAL Take 800 mg by mouth once daily. 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] 02/20/2017 07/13/2021 Primary hypertension [I10] 07/13/2021 Diabetes mellitus type 1, controlled, without c*07/13/2021 07/13/2021 Family history of renal cancer [Z80.51] 07/13/2021 07/13/2021 Lichen sclerosus [L90.0] 07/13/2021 Psoriatic arthritis (HCC) [L40.50] 07/13/2021 Psoriasis [L40.9] 07/13/2021 02/14/2024 Family history of colon cancer [Z80.0] ELVER (obstructive sleep apnea) [G47.33] TIA (transient ischemic attack) [G45.9] 07/13/2021 Controlled type 2 diabetes mellitus without com*07/13/2021 History of renal cell cancer [Z85.528] 07/13/2021 Pulmonary HTN (HCC) [I27.20] 01/18/2022 HERRON (dyspnea on exertion) [R06.09] 07/05/2022 08/01/2022 Nonobstructive atherosclerosis of coronary paige*07/05/2022 CHF (congestive heart failure) (HCC) [I50.9] 07/05/2022 Aortic valve stenosis [I35.0] 07/05/2022 Obesity, Class III, BMI >= 40 [E66.01] 07/11/2022 08/02/2023 Subareolar duct papillomatosis, 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] 07/11/2022 07/11/2022 Abnormal thallium stress test [R94.39] 08/01/2022 Chest pain [R07.9] 08/01/2022 08/01/2022 Excessive sweating [R61] 08/01/2022 Fatigue [R53.83] 08/01/2022 08/01/2022 Hyperlipidemia [E78.5] 08/01/2022 Localized edema [R60.0] 01/08/2022 08/01/2022 Pounding heartbeat [R00.2] 08/01/2022 08/01/2022 Metabolic dysfunction-associated steatotic live*08/19/2024 Encounter Status:Closed by NAT WASHINGTON on 08/24/24 Normal [facility] ALBUMIN/CREATININE RATIO, BALJIT FRAZIERon 08-19-2024 Albumin DL <= 20 mg/L (U) [Mass/Vol] 134.2 mg/L Normal [facility] Comment on above: Order Comment: Speci men Type: BLOOD SPECIMEN Ordering Facility: [facility] Address: [address] [place] [address] Performed By: #### 4 537-7, 45892-2 #### [facility] [place] [id number] [address] [place] [address] [place] Albumin/Creatinine (U) [Mass ratio] 209 mg/g High <30 [facility] Comment on above: Order Comment: Speci men Type: BLOOD SPECIMEN Ordering Facility: [facility] Address: [address] [place] [address] Result Comment: Adul t Male and Female Nephrotic Criteria: <30 mg/g is considered normal to mildly increased 30-300 mg/g is considered moderately increased >300 mg/g is considered severely increased KDIGO. (2013). KDIGO 2012 Clinical Practice Guideline for the Evaluation and Management of Chronic Kidney Disease. Official Journal of the International Society of Nephrology, 3(1), 1-150. Performed By: #### 4 537-7, 36431-7 #### [facility] [place] [id number] [address] [place] [address] [place] Creatinine (U) [Mass/Vol] 64.2 mg/dL Normal 20.0-300.0 [facility] Comment on above: Order Comment: Carol men Type: BLOOD SPECIMEN Ordering Facility: [facility] Address: [address] [place] [address] Performed By: #### 4 537-7, 04967-5 #### [facility] [place] [id number] [address] [place] [address] [place] CNOVon 08-19-2024 CNOV Office Visit (FAMPWS ) LISANDRA ABREU ([id number]) 1955 F Date Time Provider Department 08/19/24 10:00 AM PEDRO JACOB During your visit today, we recorded the following information about you: Pulse Blood pressure Weight 71/minute 122/74 126.1 kg Pedro Jacob MD 08/19/2024 10:53 AM Signed Patient presents with: 6 Month Exam HPI: Patient presents today for office visit for follow up. HTN: Patient is compliant with meds Yes Monitors bp at home: Yes. Denies side effects: Yes. Chest pain: No. Dyspnea: stable. Edema: No. Palpitations: No. Syncope: No. Headache: No. Dizziness: No. HYPERLIPIDEMIA: Patient is taking medications: Yes. Patient is watching diet: Yes. Patient denies myalgias: Yes. Patient denies gi upset: Yes DM: Reports overall feeling well. Medication side effects: No. Home sugar check frequency/results:aida y once Hypoglycemic spells: No. Watching diet: No. Unexpected weight loss: No. Polyuria, polydipsia: No. Vision Changes: had cataract surgery. Foot lesions or numbness or pain: No. Seeing gi for her liver. Has followed with gi. Sees cardiology and pulmonary Saw rheumatology once. No change in arthritis. No skin issues. Was going to go to [facility] at one point but feels is ok. Red flags for re-assessment reviewed with patient in detail. MEDICATIONS: Current Outpatient Medications Medication Sig estradiol (ESTRACE) 0.01 % (0.1 mg/gram) vaginal cream Use 1 g vaginally two times a week. Insert 1 gm vaginally every night x 14 nights then insert 1 gm vaginally twice weekly hydroCHLOROthiazide 25 mg tablet Take 1 tablet by mouth once daily. meloxicam (MOBIC) 15 mg tablet Take 1 tablet by mouth once daily. atorvastatin (LIPITOR) 80 mg tablet Take 1 tablet by mouth once daily. atenolol (TENORMIN) 50 mg tablet Take 1 tablet by mouth once daily. metFORMIN ER (FORTAMET) 500 mg 24 hr tablet Take 1 tablet by mouth daily with breakfast. May substitute losartan (COZAAR) 100 mg tablet Take 1 tablet by mouth once daily. amLODIPine (NORVASC) 10 mg tablet Take 10 mg by mouth once daily. Going to double check dosage. Cholecalciferol, Vitamin D3, 50 mcg (2,000 unit) cap Take 50 capsules by mouth. aspirin, enteric coated (ASPIRIN, ENTERIC COATED) 81 mg EC tablet Take 81 mg by mouth once daily. FOLIC ACID/MULTIVIT-MIN/LUTE IN (CENTRUM SILVER ORAL) Take by mouth once daily. Biotin 10,000 mcg cap Take 5,000 mcg by mouth once daily. KRILL OIL ORAL Take 800 mg by mouth once daily. BROMSITE 0.075 % drop Use 1 Drop in the right eye once daily. (Patient not taking: Reported on 07/31/2024) metroNIDAZOLE (FLAGYL) 500 mg tablet Take 500 mg by mouth two times a day. fluconazole (DIFLUCAN) 150 mg tablet Take 1 tablet by mouth as directed. Take one tablet on Day 1, 4 and 7. (Patient not taking: Reported on 07/02/2024) clobetasol (TEMOVATE) 0.05 % ointment Apply 1 application to affected area as directed. TO AFFECTED AREA 1-2 times a week for control of lichen sclerosis. blood sugar diagnostic (BLOOD GLUCOSE TEST) test strip Test blood sugar(s) 1 times daily. Dx: Type 2 DM - Controlled E11.9 Insulin: No Lancets lancets Test blood sugar(s) 1 times daily. Dx: Type 2 DM - Controlled E11.9 Insulin: No L. acidophilus-L. rhamnosus 15 billion cell cap Take 1 capsule by mouth once daily. MARY WOMEN. If on antibiotic, take at least 1-2 hours before or after antibiotic. KEEP REFRIGERATED neomycin/polymyxin B/dexametha ([id number]-[id number] XAMETH OPHTHALMIC) Use in eyes as needed. (Patient not taking: Reported on 07/02/2024) Clobetasol taper - compound [facility] Clobetasol 0.07% ointment. Use to affected area twice daily x 4 weeks then at bedtime x 4 weeks then 1-2 times per week. (Patient not taking: Reported on 06/23/2024) No current facility-administered medications for this visit. ALLERGIES: ALLERGIES Allergen Reactions Erythromycin Rash Miroslava Inhibitors Cough Carvedilol Intolerance Slight headache, leg cramps, sweating Corgard [Nadolol] Intolerance Heavy chest, sweating, hot flashes Diltiazem Intolerance Dizzy/ heart thumping, heard to breathe Metoprolol Intolerance Chest tight, hot flash/sweat Tetracycline Hcl (B* Hives blisters Verapamil Intolerance Short of breath, fatigue, indigestion, rash PAST MEDICAL HISTORY Diagnosis Date Arthritis Diabetes (HCC) Family history of colon cancer Hx of colonic polyps Hypertension Lichen sclerosus et atrophicus ELVER (obstructive sleep apnea) uses cpap. sees Dr. Walters. Snoring TIA (transient ischemic attack) 2014 PAST SURGICAL HISTORY Procedure Laterality Date BACK SURGERY HX BREAST BX NEEDLE CORE LEFT Left 06/19/2022 ultrasound guided needle core biopsy left breast BREAST SURGERY HX 07/11/2022 left breast lumpectomy COLONOSCOPY FLX DX W/COLLJ SPEC WHEN PFRMD 08/25/2015 (more content not included)... Normal [facility] HbA1c (Bld)on 08-19-2024 Average glucose Estimated from glycated hemoglobin (Bld) [Mass/Vol] 148 mg/dL Normal [facility] Comment on above: Order Comment: Carol astorga Type: BLOOD SPECIMEN Ordering Facility: [facility] Address: [address] [place] [address] Result Comment: eAG: (Estimated average glucose) is a calculated value from HgbA1c and is safety representative of the average blood glucose level in the last 2-3 month period. Performed By: #### 3 4528-0 #### [facility] CLIA [id number] [address] [place] [address] [place] HbA1c (Bld) [Mass fraction] 6.8 % High 4.3-5.6 [facility] Comment on above: Order Comment: Carol astorga Type: BLOOD SPECIMEN Ordering Facility: [facility] Address: [address] [place] [address] Result Comment: Amer ican Diabetes Association guidelines indicate that patients with HgbA1c in the range 5.7-6.4% are at increased risk for development of diabetes, and intervention by lifestyle modification may be beneficial. HgbA1c greater or equal to 6.5% is considered diagnostic of diabetes. Performed By: #### 3 4528-0 #### [facility] CLIA [id number] [address] [place] [address] [place] Lipid 1996 panelon 4 Cholesterol [Mass/Vol] 161 mg/dL Normal <200 [facility] Comment on above: Order Comment: Speci men Type: BLOOD SPECIMENOrdering Facility: [facility] Address: [address] [place] [address] Result Comment: <200 mg/dL, Desirable 200-239 mg/dL, Borderline high >239 mg/dL, High Performed By: #### 2 4331-1 ####[facility] [id number] [place] [address] [place] Cholesterol in HDL [Mass/Vol] 68 mg/dL Normal >39 [facility] Comment on above: Order Comment: Speci men Type: BLOOD SPECIMENOrdering Facility: [facility] Address: [address] [place] [address] Result Comment: 40-5 9 mg/dL, Acceptable >59 mg/dL, High: Negative risk factor for coronary heart disease <40 mg/dL, Low: Positive risk factor for coronary heart disease Performed By: #### 2 4331-1 ####[facility] [id number] [place] [address] [place] Cholesterol in LDL [Mass/Vol] 68 mg/dL Normal <100 [facility] Comment on above: Order Comment: Speci men Type: BLOOD SPECIMENOrdering Facility: [facility] Address: [address] [place] [address] Result Comment: <100 mg/dL, Optimal 100-129 mg/dL, Near optimal/above optimal 130-159 mg/dL, Borderline high 160-189 mg/dL, High >189 mg/dL, Very high Secondary prevention optimal LDL Cholesterol levels are recommended to be < 70 mg/dL Performed By: #### 2 4331-1 ####[facility] [id number] [place] [address] [place] Cholesterol in LDL/Cholesterol in HDL [Mass ratio] 1.00 {ratio} Normal <2.54 [facility] Comment on above: Order Comment: Speci men Type: BLOOD SPECIMENOrdering Facility: [facility] Address: [address] [place] [address] Result Comment: Magdy sosa: 1. National Cholesterol Education Program ATP III Guideline At-A-Glance Quick Desk Reference: National Heart, Lung, and Blood [place]. National Institutes of Health. 2001: NIH Publication No. 01-3305. 2. An International Atherosclerosis Society position paper: global recommendations for the management of dyslipidemia: executive summary, Atherosclerosis. 2014: 232(2):410-413. Performed By: #### 2 4331-1 ####[facility] [id number] [place] [address] [place] Cholesterol in VLDL [Mass/Vol] 25 mg/dL Normal <30 [facility] Comment on above: Order Comment: Speci men Type: BLOOD SPECIMENOrdering Facility: [facility] Address: [address] [place] [address] Performed By: #### 2 4331-1 ####[facility] [id number] [place] [address] [place] Cholesterol non HDL [Mass/Vol] 93 mg/dL Normal <130 [facility] Comment on above: Order Comment: Speci men Type: BLOOD SPECIMENOrdering Facility: [facility] Address: [address] [place] [address] Result Comment: <130 mg/dL, Optimal 130-159 mg/dL, Near optimal/above optimal 160-189 mg/dL, Borderline high 190-219 mg/dL, High >219 mg/dL, Very high Secondary prevention optimal non HDL Cholesterol levels are recommended to be <100 mg/dL Performed By: #### 2 4331-1 ####[facility] [id number] [place] [address] [place] Cholesterol.total/Cho lesterol in HDL [Mass ratio] 2.37 {ratio} Normal <5.10 [facility] Comment on above: Order Comment: Speci men Type: BLOOD SPECIMENOrdering Facility: [facility] Address: [address] [place] [address] Performed By: #### 2 4331-1 ####[facility] [id number] [place] [address] [place] FASTING TIME 12 hrs Normal [facility] Comment on above: Order Comment: Speci men Type: BLOOD SPECIMENOrdering Facility: [facility] Address: [address] [place] [address] Performed By: #### 2 4331-1 ####[facility] [id number] [place] [address] [place] Triglyceride [Mass/Vol] 125 mg/dL Normal <150 [facility] Comment on above: Order Comment: Speci men Type: BLOOD SPECIMENOrdering Facility: [facility] Address: [address] [place] [address] Result Comment: <150 mg/dL, Normal 150-199 mg/dL, Borderline high 200-499 mg/dL, High >499 mg/dL, Very high Performed By: #### 2 4331-1 ####[facility] [id number] [address] [place] CNOVon 07-31-2024 CNOV Office Visit (CARLOS ) LISANDRA ABREU ([id number]) 1955 F Date Time Provider Department 07/31/24 10:30 AM LINDSEY TRAYLOR During your visit today, we recorded the following information about you: Blood pressure Weight 136/82 124.3 kg Lindsey Traylor APRN.BEHAVIORAL CONSULTANT 07/31/2024 9:01 PM Signed Field Spec offered: Patient declines. Lisandra Abreu is a 68 year old female who presents for problem visit follow-up BV, LS HPI: Lisandra here for follow-up from visit on 06/23/2024. She was treated for BV with oral metronidazole,fluconaz ole 3 doses and Monistat 7 to perineum and perianal skin. She has lichen sclerosus and using clobetasol twice a week. No symptoms resolved with any treatment. Did not notice any improvement with completion of antibiotic or fluconazole. No itching. No discharge. Continues with constant uncomfortable almost burning feeling to vaginal opening. Weaing pants is very uncomfortable. Does have sensitivities to fragrances and uses hypoallergenic laundry products, uses Dove bar soap for Sensitive skin. Occasional stress incontinence - does not wear protection. Hysterectomy for boggy uterus. No known abnormal Pap. OB History T0 L3 SAB0 IAB0 Ectopic0 Multiple0 Live Births0 Emergency Medical Dispatcher History LMP: Hysterectomy Age at Menarche: Age at First : Age at Menopause: Emergency Medical Dispatcher History Comments: Sexual Activity: Not Currently; No partner data on record Contraception: Surgical PAST MEDICAL HISTORY Diagnosis Date Arthritis Diabetes (HCC) Family history of colon cancer Hx of colonic polyps Hypertension Lichen sclerosus et atrophicus ELVER (obstructive sleep apnea) uses cpap. sees Dr. Walters. Snoring TIA (transient ischemic attack) 2014 PAST SURGICAL HISTORY Procedure Laterality Date BACK SURGERY HX BREAST BX NEEDLE CORE LEFT Left 06/19/2022 ultrasound guided needle core biopsy left breast BREAST SURGERY HX 07/11/2022 left breast lumpectomy COLONOSCOPY FLX DX W/COLLJ SPEC WHEN PFRMD 08/25/2015 Colonoscopy COLONOSCOPY FLX DX W/COLLJ SPEC WHEN PFRMD 02/25/2020 Colonoscopy 5 yr interval ESOPHAGOGASTRODUODENOS COPY TRANSORAL DIAGNOSTIC 02/25/2020 esophagitis, intestinal metaplasia on stomach biopsies. Repeat in 2-3 years HAND SURGERY HX several on both hands HYSTERECTOMY HX with subsequent BSO KIDNEY SURGERY HX 1997 left kidney removed from cancer LEFT HEART CATH,PERCUTANEOUS normal per Dr. Cheema TONSILLECTOMY AND ADENOIDECTOMY FAMILY HISTORY Problem Relation Age of Onset Heart disease Mother Emphysema Mother Colon Cancer Father Heart Father Diabetes Brother other (diverticulitis) Maternal Grandmother Heart Attack Maternal Grandmother No Known Problems Maternal Grandfather Diabetes Paternal Grandmother Heart Attack Paternal Grandfather Stroke Paternal Grandfather Social History Tobacco Use Smoking status: Former Current packs/day: 0.00 Types: Cigarettes Quit date: 12/24/2009 Years since quittin.6 Passive exposure: Never Smokeless tobacco: Never Vaping Use Vaping status: Former Substance Use Topics Alcohol use: Not Currently Comment: rarely Drug use: No Current Outpatient Medications Medication Sig hydroCHLOROthiazide 25 mg tablet Take 1 tablet by mouth once daily. meloxicam (MOBIC) 15 mg tablet Take 1 tablet by mouth once daily. BROMSITE 0.075 % drop Use 1 Drop in the right eye once daily. metroNIDAZOLE (FLAGYL) 500 mg tablet Take 500 mg by mouth two times a day. fluconazole (DIFLUCAN) 150 mg tablet Take 1 tablet by mouth as directed. Take one tablet on Day 1, 4 and 7. (Patient not taking: Reported on 07/02/2024) atorvastatin (LIPITOR) 80 mg tablet Take 1 tablet by mouth once daily. clobetasol (TEMOVATE) 0.05 % ointment Apply 1 application to affected area as directed. TO AFFECTED AREA 1-2 times a week for control of lichen sclerosis. atenolol (TENORMIN) 50 mg tablet Take 1 tablet by mouth once daily. metFORMIN ER (FORTAMET) 500 mg 24 hr tablet Take 1 tablet by mouth daily with breakfast. May substitute blood sugar diagnostic (BLOOD GLUCOSE TEST) test strip Test blood sugar(s) 1 times daily. Dx: Type 2 DM - Controlled E11.9 Insulin: No losartan (COZAAR) 100 mg tablet Take 1 tablet by mouth once daily. Lancets lancets Test blood sugar(s) 1 times daily. Dx: Type 2 DM - Controlled E11.9 Insulin: No L. acidophilus-L. rhamnosus 15 billion cell cap Take 1 capsule by mouth once daily. MARY WOMEN. If on antibiotic, take at least 1-2 hours before or after antibiotic. KEEP REFRIGERATED amLODIPine (NORVASC) 10 mg tablet Take 10 mg by mouth once daily. Going to double check dosage. neomycin/polymyxin B/dexametha ([id number] XAMETH OPHTHALMIC) Use in eyes as needed. (Patient not taking: Reported on 07/02/2024) Cholecalciferol, Vitamin D3, 50 mcg (2,000 unit) cap Take 50 capsul (more content not included)... Normal [facility] Cardiology Visit Reporton Cardiology Visit Report [facility] [address] [place] [address] OFFICE VISIT Date of Service: 07/16/24 MR#: [id number] Acct: [id number] Name: LISANDRA ABREU Rep #: [id number] 2 : 1955 Provider: Dr. Dominguez Cheema MD Age/Sex: 68/F Location: [facility] Status: Signed HPI HPI History of Present Illness Details: This is a pleasant 68-year-old lady who presents to the office today for an out-patient cardiovascular visit. She does have a history of nonobstructive coronary artery disease, hypertension, hyperlipidemia, diabetes mellitus, and family history of coronary artery disease. In the past she has had a history of shortness of breath with exertion as well as chest discomfort. She underwent an exercise and a pharmacologic myocardial stress test in 02/2021 which demonstrated evidence of mid anterior ischemia. Her exercise capacity was markedly reduced exercising only 1-1/2 minutes. She underwent a cardiac catheterization 02/2021 which demonstrated 40% stenosis in her RCA and circumflex artery. As you know her blood pressure was not very well controlled on the Corgard and she was also having a lot of profuse sweating. When she stopped this she got better but then her blood pressure was not very well controlled. She has tried diltiazem, verapamil, carvedilol, lisinopril, Toprol, and now atenolol. Her echocardiogram 02/2021 demonstrated an ejection fraction to be normal at 60% with mild aortic stenosis with a mean gradient of 8.5. From a cardiac standpoint, the patient is doing well. She denies any palpitations, chest pain, pressure or heaviness. She denies SOB, Orthopnea, and PND. She does not have bleeding issues; no blood in urine, stool or nosebleeds. She does acknowledge a decrease in energy level-she states his is post COVID. She denies myalgias, or claudication. She does not have edema, or sudden weight gain. She denies dizziness, lightheadedness, syncopal or near syncopal episodes, and headaches. Intake Vital Signs 10/30/23 14:29 11/20/23 06:00 07/16/24 09:31 Height 5 ft 6 in 5 ft 6 in 5 ft 6 in Weight: 260 lb 255 lb 273 lb BMI 41.9 41.1 44.0 BP 147/75 H 143/76 H 134/69 H Blood Pressure Location Lt brachial Lt radial Lt radial Position Sitting Sitting Sitting Respiration 18 22 H 16 Pulse 73 64 61 Pulse Source Monitor Monitor Monitor Temp 97.5 F L Temperature Source Temporal Artery Pulse Oximetry (%) 92 95 Oxygen Delivery Method room air Intake Visit Reasons: 9 m fu W DEPARTMENT CLINICIAN PER KR Ophthalmic Assistant Required: No Is patient in pain?: No Allergies tetracycline Allergy (Verified 11/20/23 09:20) Rash carvedilol Adverse Reaction (Verified 11/20/23 09:20) Leg cramps, profuse sweating diltiazem Adverse Reaction (Verified 11/20/23 09:20) Heart pounding, dizzy, hard to breathe erythromycin base Adverse Reaction (Verified 11/20/23 09:20) Rash lisinopril Adverse Reaction (Verified 11/20/23 09:20) dry cough metoprolol (From Toprol XL) Adverse Reaction (Verified 11/20/23 09:20) Chest tight all the time verapamil Adverse Reaction (Verified 11/20/23 09:20) really SOB and fatigued all the time, heard pulse in ears Medications ???Medication ???Instructions ???Recorded ???Confirmed ???Type biotin 10,000 mcg capsule 10,000 mcg PO DAILY 04/23/16 07/16/24 History cholecalciferol (vitamin D3) 25 2,000 unit PO DAILY 04/23/16 07/16/24 History mcg (1,000 unit) tablet (Vitamin D3) aspirin 81 mg chewable tablet 81 mg PO DAILY@0800 ##30 04/24/16 07/16/24 Rx atorvastatin 80 mg tablet 80 mg PO QHS #30 TABLETS 04/24/16 07/16/24 Rx hydrochlorothiazide 25 mg tablet 25 mg PO DAILY #0 TABLETS 04/24/16 07/16/24 Rx meloxicam 15 mg tablet 15 mg PO DAILY 03/07/21 07/16/24 History metformin 500 mg tablet,extended 500 mg PO DAILY 03/07/21 07/16/24 History release 24 hr nitroglycerin 0.4 mg sublingual 0.4 mg sublingual Q5-15M PRN Chest 03/07/21 07/16/24 History tablet Pain clobetasol 0.05 % topical cream 1 applic topical DAILY PRN 05/17/21 07/16/24 History krill 1,000 mg-omega-3 170 mg-dha 1 cap PO DAILY 11/23/21 07/16/24 History 50 mg-epa 80 hg-catzxl-byxwq capsule (krill oil) ofalmxtq-lqovcksdc-lgd micidin eye ml ophthalmic (eye) PRN 11/23/21 07/16/24 History drops Lactobacillus acidophilus and 1 cap PO DAILY 01/01/22 07/16/24 History rhamnosus 15 billion cell capsule (Florajen Women) mkdqlxsp-cyx-rpygk acid 0.4 1 tab PO DAILY 07/26/22 07/16/24 History mg-lycopene 300 mcg-lutein 250 mcg tablet (Centrum Silver) amlodipine 10 mg tablet 10 mg PO DAILY #90 tabs 10/14/23 07/16/24 Rx atenolol 50 mg tablet 50 mg PO DAILY #90 tabs 01/29/24 07/16/24 Rx losartan 100 mg tablet 100 mg PO DAILY #90 tabs 07/16/24 07/16/24 Rx Have you fallen in the past year?: No PFSH Medical History (Re (more content not included)... Normal [facility] 07-02-2024 [facility] Office Visit (GASTA5 ) LISANDRA ABREU ([id number]) 1955 F Date Time Provider Department 07/02/24 10:00 AM OLGA VALDOVINOS GASTA5 During your visit today, we recorded the following information about you: Temperature Pulse Blood pressure Weight 97.2 degrees 56/minute 120/58 124.3 kg Height 1.664 m Olga Valdovinos APRN.CNP 07/04/2024 8:53 AM Signed NAME: Lisandra Abreu [facility] NO: [id number] REFERRING PHYSICIAN: Olga Valdovinos PRESENTING COMPLAINT: Follow up MASLD HPI: Lisandra Abreu is a pleasant 68 year old female is here on follow up for MASLD. . Complications of liver disease include none. PMHx includes CHF, HLD, HTN, Pulmonary HTN, ELVER, DM Type II, psoriasis, Lichen sclerosus and obesity. S/p nephrectomy kidney Ca, no chemo or radiation. ERNIE 12/26/2023. She is with her today. From last visit note: US Abd RUQ Today: Hepatic steatosis HGB A1C 5.8; metformin Fibroscan today: kPa 6.4, CAP 159 (prior was kPa 13.5, CAP 365) Has gained some weight back Has not been exercising. Has been bad with carbs recent Interval Hx: Labs: LFTs WNL, synthetic liver function is preserved Past liver biopsy: bridging fibrosis Tired a lot No weight loss No exercise Patient denies RUQ pain, shortness of breath, signs of fluid retention, fever, chills, nausea, jaundice, dark colored urine, pale colored stools, hematemesis, melena, decreased appetite, muscle wasting, confusion, weight loss Lengthy discussion regarding past biopsy results and advanced fibrosis. With no change in metabolic risk factors, fibrosis is likely to proceed to cirrhosis. Will continue to monitor REVIEW OF SYSTEMS GENERAL: No unexplained weight changes or fevers. HEENT: Negative for severe headaches, negative for changes in hearing or vision. NECK: Negative for lumps, masses or pain. RESPIRATORY: Negative for coughing, wheezing or significant dyspnea. CARDIOVASCULAR: Negative for chest pain or heart palpitations. GASTROINTESTINAL: Negative for rectal bleeding or black tarry stools. GENITOURINARY: Negative for dysuria or urinary incontinence. MUSCULOSKELETAL: Negative for unexplained joint pains, dislocations or fractures. NEUROLOGIC: Negative for unexplained weakness or vertigo. SKIN: Negative for new lesions or rashes. ENDOCRINE: Negative for cold or heat intolerance . Current Outpatient Medications Medication Sig Dispense Refill metroNIDAZOLE (FLAGYL) 500 mg tablet Take 1 tablet by mouth two times a day for 7 days. 14 tablet 0 fluconazole (DIFLUCAN) 150 mg tablet Take 1 tablet by mouth as directed. Take one tablet on Day 1, 4 and 7. 3 tablet 0 atorvastatin (LIPITOR) 80 mg tablet Take 1 tablet by mouth once daily. 90 tablet 1 clobetasol (TEMOVATE) 0.05 % ointment Apply 1 application to affected area as directed. TO AFFECTED AREA 1-2 times a week for control of lichen sclerosis. 60 g 3 hydroCHLOROthiazide 25 mg tablet Take 1 tablet by mouth once daily. 90 tablet 1 meloxicam (MOBIC) 15 mg tablet Take 1 tablet by mouth once daily. 90 tablet 1 atenolol (TENORMIN) 50 mg tablet Take 1 tablet by mouth once daily. 90 tablet 3 metFORMIN ER (FORTAMET) 500 mg 24 hr tablet Take 1 tablet by mouth daily with breakfast. May substitute 90 tablet 3 blood sugar diagnostic (BLOOD GLUCOSE TEST) test strip Test blood sugar(s) 1 times daily. Dx: Type 2 DM - Controlled E11.9 Insulin: No 50 Strip 11 losartan (COZAAR) 100 mg tablet Take 1 tablet by mouth once daily. 90 tablet 3 Lancets lancets Test blood sugar(s) 1 times daily. Dx: Type 2 DM - Controlled E11.9 Insulin: No 100 Each 11 L. acidophilus-L. rhamnosus 15 billion cell cap Take 1 capsule by mouth once daily. FLORAJEN WOMEN. If on antibiotic, take at least 1-2 hours before or after antibiotic. KEEP REFRIGERATED 30 capsule 11 amLODIPine (NORVASC) 10 mg tablet Take 10 mg by mouth once daily. Going to double check dosage. neomycin/polymyxin B/dexametha ([id number]-[id number]-XG XAMETH OPHTHALMIC) Use in eyes as needed. Cholecalciferol, Vitamin D3, 50 mcg (2,000 unit) cap Take 50 capsules by mouth. aspirin, enteric coated (ASPIRIN, ENTERIC COATED) 81 mg EC tablet Take 81 mg by mouth once daily. Clobetasol taper - compound [facility] Clobetasol 0.07% ointment. Use to affected area twice daily x 4 weeks then at bedtime x 4 weeks then 1-2 times per week. (Patient not taking: Reported on 06/23/2024) 1 Tube 2 FOLIC ACID/MULTIVIT-MIN/LUTE IN (CENTRUM SILVER ORAL) Take by mouth once daily. Biotin 10,000 mcg cap Take 5,000 mcg by mouth once daily. KRILL OIL ORAL Take 800 mg by mouth once daily. No current facility-administered medications for this visit. ALLERGIES Allergen Reactions Erythromycin Rash Miroslava Inhibitors Cough Atenolol Intolerance Sweating, hard time breathing Carvedilol Intolerance Slight headache, leg cramps, sweating Corgard [Nadolol] Intolerance (more content not included)... Normal [facility] US ABD RIGHT UPPER QUADRANTo n 07-02-2024 US ABD RIGHT UPPER QUADRANT * * *Final Report* * * DATE OF EXAM: Jul 02 2024 9:44AM PINA 1032 - US ABD RIGHT UPPER QUADRANT / PROCEDURE REASON: Hepatic steatosis * * * * Physician Interpretation * * * * EXAMINATION: RIGHT UPPER QUADRANT AND SPLEEN ULTRASOUND CLINICAL HISTORY: Hepatic Steatosis TECHNIQUE: Sonography of the right upper quadrant and spleen was performed. Images were obtained and stored in a permanent archive. MQ: URUQ_2 COMPARISON: 12/26/2023 RESULT: Pancreas: Normal sonographic appearance. Portions obscured: tail Liver: Echotexture: Normal, homogeneous. Echogenicity: Diffusely and markedly increased poor acoustic penetration. Sparing adjacent in gallbladder fossa. Surface contour: Smooth Lesions: None. Biliary: No intrahepatic biliary duct dilation. CBD: 0.4 at the hilum. Gallbladder: Normal caliber -Contents: No cholelithiasis -Wall: Normal -Other: No pericholecystic fluid. Right Kidney: No hydronephrosis. Ascites: None. Spleen: The length of the spleen is 8.8 cm. There are no splenic lesions. IMPRESSION: Steatosis with sparing in gallbladder fossa. Poor acoustic penetration. Normal spleen. Hhas: MARCELA Transcribe Date/Time: Jul 02 2024 9:49A Dictated by : EMMIE ARECHIGA MD This examination was interpreted and the report reviewed and electronically signed by: EMMIE ARECHIGA MD on Jul 02 2024 9:51AM EST [id number] Normal [facility] US Abdomen RUQon 07-02-2024 IMPRESSION: Steatosis with sparing in gallbladder fossa. Poor acoustic penetration. Normal spleen. Hhas: [facility] Transcribe Date/Time: Jul 02 2024 9:49A Dictated by : EMMIE ARECHIGA MD This examination was interpreted and the report reviewed and electronically signed by: EMMIE ARECHIGA MD on Jul 02 2024 9:51AM EST DIVISION OF RADIOLOGY * * *Final Report* * * DATE OF EXAM: Jul 02 2024 9:44AM PINA 1032 - US ABD RIGHT UPPER QUADRANT / PROCEDURE REASON: Hepatic steatosis * * * * Physician Interpretation * * * * EXAMINATION: RIGHT UPPER QUADRANT AND SPLEEN ULTRASOUND CLINICAL HISTORY: Hepatic Steatosis TECHNIQUE: Sonography of the right upper quadrant and spleen was performed. Images were obtained and stored in a permanent archive. MQ: URUQ_2 COMPARISON: 12/26/2023 RESULT: Pancreas: Normal sonographic appearance. Portions obscured: tail Liver: Echotexture: Normal, homogeneous. Echogenicity: Diffusely and markedly increased poor acoustic penetration. Sparing adjacent in gallbladder fossa. Surface contour: Smooth Lesions: None. Biliary: No intrahepatic biliary duct dilation. CBD: 0.4 at the hilum. Gallbladder: Normal caliber -Contents: No cholelithiasis -Wall: Normal -Other: No pericholecystic fluid. Right Kidney: No hydronephrosis. Ascites: None. Spleen: The length of the spleen is 8.8 cm. There are no splenic lesions. DIVISION OF RADIOLOGY Provider, [facility] - 07/02/2024 * * *Final Report* * * DATE OF EXAM: Jul 02 2024 9:44AM PINA 1032 - US ABD RIGHT UPPER QUADRANT / PROCEDURE REASON: Hepatic steatosis * * * * Physician Interpretation * * * * EXAMINATION: RIGHT UPPER QUADRANT AND SPLEEN ULTRASOUND CLINICAL HISTORY: Hepatic Steatosis TECHNIQUE: Sonography of the right upper quadrant and spleen was performed. Images were obtained and stored in a permanent archive. MQ: URUQ_2 COMPARISON: 12/26/2023 RESULT: Pancreas: Normal sonographic appearance. Portions obscured: tail Liver: Echotexture: Normal, homogeneous. Echogenicity: Diffusely and markedly increased poor acoustic penetration. Sparing adjacent in gallbladder fossa. Surface contour: Smooth Lesions: None. Biliary: No intrahepatic biliary duct dilation. CBD: 0.4 at the hilum. Gallbladder: Normal caliber -Contents: No cholelithiasis -Wall: Normal -Other: No pericholecystic fluid. Right Kidney: No hydronephrosis. Ascites: None. Spleen: The length of the spleen is 8.8 cm. There are no splenic lesions. IMPRESSION IMPRESSION: Steatosis with sparing in gallbladder fossa. Poor acoustic penetration. Normal spleen. Hhas: [facility] Transcribe Date/Time: Jul 02 2024 9:49A Dictated by : EMMIE ARECHIGA MD This examination was interpreted and the report reviewed and electronically signed by: EMMIE ARECHIGA MD on Jul 02 2024 9:51AM EST [facility] Radiology Study observation (narrative) [facility] US Abdomen RUQOrdered By: Jovana f Provider on 07-02-2024 [facility] AFP SerPl-mCncon 06-25-2024 AFP [Mass/Vol] 4.65 ng/mL Normal <9.00 [facility] Comment on above: Order Comment: Speci men Type: BLOOD SPECIMEN Ordering Facility: [facility] Address: [address] [place] [address] Result Comment: The Alpha-Fetoprotein test was performed using the [place] ZENTICKET DxI immunoenzymatic assay. Results obtained with different assay methods or kits cannot be used interchangeably. Performed By: #### 4 537-7, 23887-5 #### [facility] CLIA [id number] [address] [place] [address] [place] CBC panel Auto (Bld)on 06-25 Erythrocyte distribution width (RBC) [Ratio] 14.5 % Normal 11.5-15.0 [facility] Comment on above: Order Comment: Carol astorga Type: BLOOD SPECIMENOrdering Facility: [facility] Address: [address] [place] [address] Performed By: #### 5 8410-2 ####[facility] [id number] [place] [address] [place] Hematocrit (Bld) [Volume fraction] 44.3 % Normal 36.0-46.0 [facility] Comment on above: Order Comment: Speci men Type: BLOOD SPECIMENOrdering Facility: [facility] Address: [address] [place] [address] Performed By: #### 5 8410-2 ####[facility] [id number] [place] [address] [place] Hemoglobin (Bld) [Mass/Vol] 13.9 g/dL Normal 11.5-15.5 [facility] Comment on above: Order Comment: Speci men Type: BLOOD SPECIMENOrdering Facility: [facility] Address: [address] [place] [address] Performed By: #### 5 8410-2 ####[facility] [id number] [place] [address] [place] MCH (RBC) [Entitic mass] 27.8 pg Normal 26.0-34.0 [facility] Comment on above: Order Comment: Speci men Type: BLOOD SPECIMENOrdering Facility: [facility] Address: [address] [place] [address] Performed By: #### 5 8410-2 ####[facility] [id number] [place] [address] [place] MCHC (RBC) [Mass/Vol] 31.4 g/dL Normal 30.5-36.0 [facility] Comment on above: Order Comment: Speci men Type: BLOOD SPECIMENOrdering Facility: [facility] Address: [address] [place] [address] Performed By: #### 5 8410-2 ####[facility] [id number] [place] [address] [place] MCV (RBC) [Entitic vol] 88.6 fL Normal 80.0-100.0 [facility] Comment on above: Order Comment: Speci men Type: BLOOD SPECIMENOrdering Facility: [facility] Address: [address] [place] [address] Performed By: #### 5 8410-2 ####[facility] [id number] [place] [address] [place] Nucleated RBC (Bld) [#/Vol] 10*3/uL Normal <0.01 [facility] Comment on above: Order Comment: Speci men Type: BLOOD SPECIMENOrdering Facility: [facility] Address: [address] [place] [address] Performed By: #### 5 8410-2 ####[facility] [id number] [address] [address] [place] Platelet mean volume (Bld) [Entitic vol] 9.7 fL Normal 9.0-12.7 [facility] Comment on above: Order Comment: Speci men Type: BLOOD SPECIMENOrdering Facility: [facility] Address: [address] [place] [address] Performed By: #### 5 8410-2 ####[facility] [id number] [place] [address] [place] Platelets (Bld) [#/Vol] 207 10*3/uL Normal 150-400 [facility] Comment on above: Order Comment: Speci men Type: BLOOD SPECIMENOrdering Facility: [facility] Address: [address] [place] [address] Performed By: #### 5 8410-2 ####[facility] [id number] [place] [address] [place] RBC (Bld) [#/Vol] 5.00 10*6/uL Normal 3.90-5.20 [facility] Comment on above: Order Comment: Speci men Type: BLOOD SPECIMENOrdering Facility: [facility] Address: [address] [place] [address] Performed By: #### 5 8410-2 ####[facility] [id number] [place] [address] [place] WBC (Bld) [#/Vol] 8.21 10*3/uL Normal 3.70-11.00 [facility] Comment on above: Order Comment: Speci men Type: BLOOD SPECIMENOrdering Facility: [facility] Address: [address] [place] [address] Performed By: #### 5 8410-2 ####[facility] [id number] [address] [place] OF [facility] Comprehensive metabolic 2000 panelon 06-25-2024 Albumin [Mass/Vol] 4.8 g/dL Normal 3.9-4.9 [facility] Comment on above: Order Comment: Speci men Type: BLOOD SPECIMEN Ordering Facility: [facility] Address: [address] [place] [address] Performed By: #### 4 537-7, 64392-8 #### [facility] CLIA [id number] [address] [place] [address] [place] ALP [Catalytic activity/Vol] 101 U/L Normal 34-123 [facility] Comment on above: Order Comment: Speci men Type: BLOOD SPECIMEN Ordering Facility: [facility] Address: [address] [place] [address] Performed By: #### 4 537-7, 62489-7 #### [facility] CLIA [id number] [address] [place] [address] [place] ALT [Catalytic activity/Vol] 38 U/L Normal 7-38 [facility] Comment on above: Order Comment: Speci men Type: BLOOD SPECIMEN Ordering Facility: [facility] Address: [address] [place] [address] Performed By: #### 4 537-7, 16117-8 #### [facility] CLIA [id number] [address] [place] [address] [place] Anion gap [Moles/Vol] 13 mmol/L Normal 8-15 [facility] Comment on above: Order Comment: Speci men Type: BLOOD SPECIMEN Ordering Facility: [facility] Address: [address] [place] [address] Performed By: #### 4 537-7, 81918-9 #### [facility] CLIA [id number] [address] [place] [address] [place] AST [Catalytic activity/Vol] 32 U/L Normal 13-35 [facility] Comment on above: Order Comment: Speci men Type: BLOOD SPECIMEN Ordering Facility: [facility] Address: [address] [place] [address] Performed By: #### 4 537-7, 50925-6 #### [facility] CLIA [id number] [address] [place] [address] [place] Bilirubin [Mass/Vol] 0.6 mg/dL Normal 0.2-1.3 [facility] Comment on above: Order Comment: Speci men Type: BLOOD SPECIMEN Ordering Facility: [facility] Address: [address] [place] [address] Performed By: #### 4 537-7, 76780-6 #### [facility] CLIA [id number] [address] [place] [address] [place] Calcium [Mass/Vol] 10.0 mg/dL Normal 8.5-10.2 [facility] Comment on above: Order Comment: Speci men Type: BLOOD SPECIMEN Ordering Facility: [facility] Address: [address] [place] [address] Performed By: #### 4 537-7, 51415-7 #### [facility] CLIA [id number] [address] [place] [address] [place] Chloride [Moles/Vol] 100 mmol/L Normal 98-107 [facility] Comment on above: Order Comment: Speci men Type: BLOOD SPECIMEN Ordering Facility: [facility] Address: [address] [place] [address] Performed By: #### 4 537-7, 88670-7 #### [facility] CLIA [id number] [address] [place] [address] [place] CO2 [Moles/Vol] 27 mmol/L Normal 22-30 [facility] Comment on above: Order Comment: Speci men Type: BLOOD SPECIMEN Ordering Facility: [facility] Address: [address] [place] [address] Performed By: #### 4 537-7, 43706-1 #### [facility] CLIA [id number] [address] [place] [address] [place] Creatinine [Mass/Vol] 0.96 mg/dL Normal 0.58-0.96 [facility] Comment on above: Order Comment: Speci gauri Type: BLOOD SPECIMEN Ordering Facility: [facility] Address: [address] [place] [address] Performed By: #### 4 537-7, 80145-2 #### [facility] CLIA [id number] [address] [place] [address] [place] Creatinine and Glomerular filtration rate.predicted panel (S/P/Bld) 64 mL/min/1.73m??? Normal >=60 [facility] Comment on above: Order Comment: Carol astorga Type: BLOOD SPECIMEN Ordering Facility: [facility] Address: [address] [place] [address] Result Comment: Yamileth mated Glomerular Filtration Rate (eGFR) is calculated using the 2020 CKD-EPI creatinine equation. This equation utilizes serum creatinine, sex, and age as parameters. The creatinine assay has traceable calibration to isotope dilution-mass spectrometry. Refer to KDIGO guidelines for clinical interpretation. In patients with unstable renal function, e.g. those with acute kidney injury, the eGFR may not accurately reflect actual GFR. Performed By: #### 4 537-7, 46979-4 #### [facility] CLIA [id number] [address] [place] [address] [place] Glucose [Mass/Vol] 102 mg/dL High 74-99 [facility] Comment on above: Order Comment: Néstori gauri Type: BLOOD SPECIMEN Ordering Facility: [facility] Address: [address] [place] [address] Result Comment: The [place] Diabetes Association (ADA) provides guidance for cutoff values for fasting glucose and random glucose. The ADA defines fasting as no caloric intake for at least 8 hours. Fasting plasma glucose results between 100 to 125 mg/dL indicate increased risk for diabetes (prediabetes). Fasting plasma glucose results greater than or equal to 126 mg/dL meet the criteria for diagnosis of diabetes. In the absence of unequivocal hyperglycemia, results should be confirmed by repeat testing. In a patient with classic symptoms of hyperglycemia or hyperglycemic crisis, random plasma glucose results greater than or equal to 200 mg/dL meet the criteria for diagnosis of diabetes. Reference: Standards of Medical Care in Diabetes 2016, [place] [employer] Association. Diabetes Care. 2016.39(Suppl 1). Performed By: #### 4 537-7, 11696-1 #### [facility] CLIA [id number] [address] [place] [address] [place] Potassium [Moles/Vol] 4.0 mmol/L Normal 3.7-5.1 [facility] Comment on above: Order Comment: Speci men Type: BLOOD SPECIMEN Ordering Facility: [facility] Address: [address] [place] [address] Performed By: #### 4 537-7, 31385-1 #### [facility] CLIA [id number] [address] [place] [address] [place] Protein [Mass/Vol] 7.7 g/dL Normal 6.3-8.0 [facility] Comment on above: Order Comment: Speci gauri Type: BLOOD SPECIMEN Ordering Facility: [facility] Address: [address] [place] [address] Performed By: #### 4 537-7, 13169-5 #### [facility] CLIA [id number] [address] [place] [address] [place] Sodium [Moles/Vol] 140 mmol/L Normal 136-144 [facility] Comment on above: Order Comment: Speci men Type: BLOOD SPECIMEN Ordering Facility: [facility] Address: [address] [place] [address] Performed By: #### 4 537-7, 45601-1 #### [facility] CLIA [id number] [address] [place], [place] [id number] [place] Urea nitrogen [Mass/Vol] 25 mg/dL High 7-21 [facility] Comment on above: Order Comment: Carol astorga Type: BLOOD SPECIMEN Ordering Facility: [facility] Address: [address] [place] [address] Performed By: #### 4 537-7, 22889-4 #### [facility] CLIA [id number] [address] [place] [address] [place] PT panel Coag (PPP)on 2023 INR Coag (PPP) [Relative time] 1.0 {INR} Normal 0.9-1.3 [facility] Comment on above: Order Comment: Carol astorga Type: BLOOD SPECIMEN Ordering Facility: [facility] Address: [address] [place] [address] Result Comment: Mamie min K Antagonist (VKA) Therapeutic Range: INR 2 to 3 (Target INR of 2.5) Note: For patients treated with VKA drugs, such as warfarin, the [place] [employer] 2012 Guideline recommends a therapeutic INR range of 2 to 3 (target INR of 2.5). This recommendation includes high-risk patients with antiphospholipid syndrome with previous arterial or venous thromboembolism, current-generation mechanical or bioprosthetic aortic heart valve replacement. Note: Patients with mechanical aortic valve replacement and additional risk factors for thromboembolic events (atrial fibrillation, previous thromboembolism, LV dysfunction, hypercoagulable conditions) or an older generation mechanical AVR (i.e., ball in-Cage) or any mechanical MVR should have a INR therapeutic range of 2.5 to 3.5 (target INR of 3). Harpal GH, et al. Chest 2012, 141:7S-47S Reta RA, et al. [facility] 2017, 70: 252-289 Performed By: #### 3 4528-0 #### [facility] CLIA [id number] [address] [place] [address] [place] PT Coag (PPP) [Time] 10.9 s Normal 9.7-13.0 [facility] Comment on above: Order Comment: Carol astorga Type: BLOOD SPECIMEN Ordering Facility: [facility] Address: [address] [id number] Performed By: #### 3 4528-0 #### [facility] CLIA [id number] [address] [place] [address] [id number] [id number] [place] CNPNon 06-24-2024 CNPN Telephone (OBGYWM) LISANDRA ABREU ([id number]) 1955 F Date Time Provider Department 06/24/24 LINDSEY TRAYLOR During your visit today, we recorded the following information about you: Vianney Denney RN 06/24/2024 2:41 PM Signed Pt called stating she saw AG yesterday and as prescribed Diflucan for yeast; however, labs resulted today and Roland/Trich resulted negative and BV was positive. Pt questioning whether or not you want her to pick the Diflucan up and what tx is required for the BV? Please advise. PHU Goff Lindsey, RN 06/24/2024 2:42 PM Signed See Kereos message as well. PHU Manning Lindsey, RN 06/24/2024 3:21 PM Signed Kereos message sent to patient. Megha Hunter RN Allergies As of Date: 06/24/2024 Noted Allergy Reaction ERYTHROMYCIN 02/20/2017 2 - Rash MIROSLAVA INHIBITORS 07/13/2021 3 - Cough ATENOLOL 07/13/2021 5 - Intolerance Comments: Sweating, hard time breathing CARVEDILOL 07/13/2021 5 - Intolerance Comments: Slight headache, leg cramps, sweating CORGARD (NADOLOL) 07/13/2021 5 - Intolerance Comments: Heavy chest, sweating, hot flashes DILTIAZEM 07/13/2021 5 - Intolerance Comments: Dizzy/ heart thumping, heard to breathe METOPROLOL 07/13/2021 5 - Intolerance Comments: Chest tight, hot flash/sweat TETRACYCLINE HCL (BULK) 08/22/2015 4 - Hives Comments: blisters VERAPAMIL 07/13/2021 5 - Intolerance Comments: Short of breath, fatigue, indigestion, rash Date Reviewed: 06/23/2024 Reviewed by: Lindsey Traylor APRN.BEHAVIORAL CONSULTANT - Fully Assessed Reason for Visit: Patient Question [1477] Prescriptions as of 06/24/2024 - metroNIDAZOLE (FLAGYL) 500 mg tablet Take 1 tablet by mouth two times a day for 7 days. - fluconazole (DIFLUCAN) 150 mg tablet Take 1 tablet by mouth as directed. Take one tablet on Day 1, 4 and 7. - atorvastatin (LIPITOR) 80 mg tablet Take 1 tablet by mouth once daily. - clobetasol (TEMOVATE) 0.05 % ointment Apply 1 application to affected area as directed. TO AFFECTED AREA 1-2 times a week for control of lichen sclerosis. - hydroCHLOROthiazide 25 mg tablet Take 1 tablet by mouth once daily. - meloxicam (MOBIC) 15 mg tablet Take 1 tablet by mouth once daily. - atenolol (TENORMIN) 50 mg tablet Take 1 tablet by mouth once daily. - metFORMIN ER (FORTAMET) 500 mg 24 hr tablet Take 1 tablet by mouth daily with breakfast. May substitute - blood sugar diagnostic (BLOOD GLUCOSE TEST) test strip Test blood sugar(s) 1 times daily. Dx: Type 2 DM - Controlled E11.9 Insulin: No - losartan (COZAAR) 100 mg tablet Take 1 tablet by mouth once daily. - Lancets lancets Test blood sugar(s) 1 times daily. Dx: Type 2 DM - Controlled E11.9 Insulin: No - L. acidophilus-L. rhamnosus 15 billion cell cap Take 1 capsule by mouth once daily. FLORAJEN WOMEN. If on antibiotic, take at least 1-2 hours before or after antibiotic. KEEP REFRIGERATED - amLODIPine (NORVASC) 10 mg tablet Take 10 mg by mouth once daily. Going to double check dosage. - neomycin/polymyxin B/dexametha (DEWYIRAA-[id number]-[id number] XAMETH OPHTHALMIC) Use in eyes as needed. - Cholecalciferol, Vitamin D3, 50 mcg (2,000 unit) cap Take 50 capsules by mouth. - aspirin, enteric coated (ASPIRIN, ENTERIC COATED) 81 mg EC tablet Take 81 mg by mouth once daily. - Clobetasol taper - compound [facility] Clobetasol 0.07% ointment. Use to affected area twice daily x 4 weeks then at bedtime x 4 weeks then 1-2 times per week. - FOLIC ACID/MULTIVIT-MIN/LUTE IN (CENTRUM SILVER ORAL) Take by mouth once daily. - Biotin 10,000 mcg cap Take 5,000 mcg by mouth once daily. - KRILL OIL ORAL Take 800 mg by mouth once daily. 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] 02/20/2017 07/13/2021 Primary hypertension [I10] 07/13/2021 Diabetes mellitus type 1, controlled, without c*07/13/2021 07/13/2021 Family history of renal cancer [Z80.51] 07/13/2021 07/13/2021 Lichen sclerosus [L90.0] 07/13/2021 Psoriatic arthritis (HCC) [L40.50] 07/13/2021 Psoriasis [L40.9] 07/13/2021 02/14/2024 Family history of colon cancer [Z80.0] ELVER (obstructive sleep apnea) [G47.33] TIA (transient ischemic attack) [G45.9] 07/13/2021 Controlled type 2 diabetes mellitus without com*07/13/2021 History of renal cell cancer [Z85.528] 07/13/2021 Pulmonary HTN (HCC) [I27.20] 01/18/2022 HERRON (dyspnea on exertion) [R06.09] 07/05/2022 08/01/2022 Nonobstructive atherosclerosis of coronary paieg*07/05/2022 CHF (congestive heart failure) (HCC) [I50.9] 07/05/2022 Aortic valve stenosis [I35.0] 07/05/2022 Obesity, Class III, BMI >= 40 [E66.01] 07/11/2022 08/02/2023 Subareolar duct papillomatosis, 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 Normal [facility] BACTERIAL VAGINOSIS NAATon 1 Lactobacillus crispatus+gasseri+chari senii + Gardnerella vaginalis + Atopobium vaginae rRNA JEREMIAH+probe Ql (Vag fld) Positive Abnormal Negative for bacterial vaginosis [facility] Comment on above: Order Comment: Speci men Type: SWABOrdering Facility: [facility] Address: [address] [place] [address] Performed By: #### B VAMP, CVTV ####[facility] [id number] [place] [address] [place] ROLAND/TRICHOMONAS NAATon 1 C. glabrata RNA JEREMIAH+probe Ql (Vag fld) Negative Normal Negative for Roland glabrata [facility] Comment on above: Order Comment: Speci men Type: SWABOrdering Facility: [facility] Address: [address] [place] [address] Performed By: #### B VAMP, CVTV ####[facility] [id number] [place] [address] [place] Roland sp DNA JEREMIAH+probe Ql (Vag fld) Negative Normal Negative for Roland species [facility] Comment on above: Order Comment: Speci men Type: SWABOrdering Facility: [facility] Address: [address] [place] [address] Performed By: #### B VAMP, CVTV ####[facility] [id number] [place] [address] [place] T. vaginalis DNA JEREMIAH+probe Ql (Unsp spec) Negative Normal Negative for Trichomonas vaginalis by amplification [facility] Comment on above: Order Comment: Speci men Type: SWABOrdering Facility: [facility] Address: [address] [place] [address] Performed By: #### B VAMP, CVTV ####[facility] [id number] [address] [place] CNOVon 06-23-2024 CNOV Office Visit (OBGYWM ) LISANDRA ABREU ([id number]) 1955 F Date Time Provider Department 06/23/24 10:00 AM LINDSEY TRAYLOR OBGYWM During your visit today, we recorded the following information about you: Blood pressure Weight 130/80 122.9 kg Lindsey Traylor APRN.BEHAVIORAL CONSULTANT 06/23/2024 12:07 PM Signed Field Spec offered: Patient declines. Lisandra Abreu is a 68 year old female who presents for problem visit for Lichen Sclerosus. HPI: Lisandra presents for a problem visit regarding Lichens Sclerosus. She states that her Lichens is irritated today. Using clobetasol ointment every 2-3 days keeps symptoms under control but is often irritated and sore. Wearing pants causes more irritation and often wears dresses because of this. OB History T0 L3 SAB0 IAB0 Ectopic0 Multiple0 Live Births0 Emergency Medical Dispatcher History LMP: Hysterectomy Age at Menarche: Age at First : Age at Menopause: Emergency Medical Dispatcher History Comments: Sexual Activity: Not Currently; No partner data on record Contraception: Surgical PAST MEDICAL HISTORY Diagnosis Date Arthritis Diabetes (HCC) Family history of colon cancer Hx of colonic polyps Hypertension Lichen sclerosus et atrophicus ELVER (obstructive sleep apnea) uses cpap. sees Dr. Walters. Snoring TIA (transient ischemic attack) 2014 PAST SURGICAL HISTORY Procedure Laterality Date BACK SURGERY HX BREAST BX NEEDLE CORE LEFT Left 06/19/2022 ultrasound guided needle core biopsy left breast BREAST SURGERY HX 07/11/2022 left breast lumpectomy COLONOSCOPY FLX DX W/COLLJ SPEC WHEN PFRMD 08/25/2015 Colonoscopy COLONOSCOPY FLX DX W/COLLJ SPEC WHEN PFRMD 02/25/2020 Colonoscopy 5 yr interval ESOPHAGOGASTRODUODENOS COPY TRANSORAL DIAGNOSTIC 02/25/2020 esophagitis, intestinal metaplasia on stomach biopsies. Repeat in 2-3 years HAND SURGERY HX several on both hands HYSTERECTOMY HX with subsequent BSO KIDNEY SURGERY HX 1997 left kidney removed from cancer LEFT HEART CATH,PERCUTANEOUS normal per Dr. Cheema TONSILLECTOMY AND ADENOIDECTOMY FAMILY HISTORY Problem Relation Age of Onset Heart disease Mother Emphysema Mother Colon Cancer Father Heart Father Diabetes Brother other (diverticulitis) Maternal Grandmother Heart Attack Maternal Grandmother No Known Problems Maternal Grandfather Diabetes Paternal Grandmother Heart Attack Paternal Grandfather Stroke Paternal Grandfather Social History Tobacco Use Smoking status: Former Current packs/day: 0.00 Types: Cigarettes Quit date: 12/24/2009 Years since quittin.5 Passive exposure: Never Smokeless tobacco: Never Vaping Use Vaping status: Former Substance Use Topics Alcohol use: Not Currently Comment: rarely Drug use: No Current Outpatient Medications Medication Sig atorvastatin (LIPITOR) 80 mg tablet Take 1 tablet by mouth once daily. clobetasol (TEMOVATE) 0.05 % ointment Apply 1 application to affected area as directed. TO AFFECTED AREA 1-2 times a week for control of lichen sclerosis. hydroCHLOROthiazide 25 mg tablet Take 1 tablet by mouth once daily. meloxicam (MOBIC) 15 mg tablet Take 1 tablet by mouth once daily. atenolol (TENORMIN) 50 mg tablet Take 1 tablet by mouth once daily. metFORMIN ER (FORTAMET) 500 mg 24 hr tablet Take 1 tablet by mouth daily with breakfast. May substitute blood sugar diagnostic (BLOOD GLUCOSE TEST) test strip Test blood sugar(s) 1 times daily. Dx: Type 2 DM - Controlled E11.9 Insulin: No losartan (COZAAR) 100 mg tablet Take 1 tablet by mouth once daily. Lancets lancets Test blood sugar(s) 1 times daily. Dx: Type 2 DM - Controlled E11.9 Insulin: No L. acidophilus-L. rhamnosus 15 billion cell cap Take 1 capsule by mouth once daily. FLORAJEN WOMEN. If on antibiotic, take at least 1-2 hours before or after antibiotic. KEEP REFRIGERATED amLODIPine (NORVASC) 10 mg tablet Take 10 mg by mouth once daily. Going to double check dosage. neomycin/polymyxin B/dexametha (MSLAJSMG-PYAFZBKJB-PY XAMETH OPHTHALMIC) Use in eyes as needed. Cholecalciferol, Vitamin D3, 50 mcg (2,000 unit) cap Take 50 capsules by mouth. aspirin, enteric coated (ASPIRIN, ENTERIC COATED) 81 mg EC tablet Take 81 mg by mouth once daily. FOLIC ACID/MULTIVIT-MIN/LUTE IN (CENTRUM SILVER ORAL) Take by mouth once daily. Biotin 10,000 mcg cap Take 5,000 mcg by mouth once daily. KRILL OIL ORAL Take 800 mg by mouth once daily. Clobetasol taper - compound [facility] Clobetasol 0.07% ointment. Use to affected area twice daily x 4 weeks then at bedtime x 4 weeks then 1-2 times per week. (Patient not taking: Reported on 06/23/2024) No current facility-administered medications for this visit. Allergies As of Date: 06/23/2024 Allergen Noted Reaction ERYTHROMYCIN 02/20/2017 Rash MIROSLAVA INHIBITORS 07/13/2021 Cough ATENOLOL 07/13/2021 Intolerance CARVEDILOL 07/13/2021 Intolerance CORGARD [NADOL (more content not included)... Normal [facility] 25-hydroxyvitamin D3 [Mass/V ol]on 02-14-2024 Interpretation and review of laboratory results Normal [facility] The reference range interval was based on an analysis of samples from healthy adults and may not pertain to children from 0-18 years old. [facility] ACTIVATED PARTIAL THROMBOPLA STIN TIMEOrdered By: Amie Bear on 02-14-2024 aPTT Coag (PPP) [Time] 28.5 s [facility] Comment on above: Frozen Plasma Aliquo t AFP [Mass/Vol]on 02-14-2024 Interpretation and review of laboratory results Normal [facility] ALPHA FETOPROTEINon 02-14-20 AFP [Mass/Vol] 5.1 ng/mL NINF - 11.0 ng/mL [facility] Comment on above: The test is typicall y used as an aid in managing hepatocellular carcinoma and non-seminomatous testicular cancer when used in conjunction with physical examination, histology, and other clinical evaluation procedures. Normal levels of AFP do not entirely exclude the possibility of the above-mentioned conditions, other malignancies, and chronic liver diseases. The normal range has not been established for newborns. The Alpha-Fetoprotein test was performed using the Siemens Centaur XP chemiluminometric immunoassay method. Results obtained with different assay methods or kits cannot be used interchangeably. CBC panel Auto (Bld)on 02-13 Erythrocyte distribution width (RBC) [Ratio] 14.7 % 11.5 - 15.0 % [facility] Hematocrit (Bld) [Volume fraction] 46.2 % High 36.0 - 46.0 % [facility] Hemoglobin (Bld) [Mass/Vol] 14.4 g/dL 11.5 - 15.5 g/dL [facility] Interpretation and review of laboratory results Abnormal [facility] MCH (RBC) [Entitic mass] 27.1 pg 26.0 - 34.0 pg [facility] MCHC (RBC) [Mass/Vol] 31.2 g/dL 30.5 - 36.0 g/ dL [facility] MCV (RBC) [Entitic vol] 86.8 fL 80.0 - 100.0 fL [facility] Nucleated RBC (Bld) [#/Vol] NINF [facility] Platelet mean volume (Bld) [Entitic vol] 9.8 fL 9.0 - 12.7 fL [facility] Platelets (Bld) [#/Vol] 217 10*3/uL [facility] RBC (Bld) [#/Vol] 5.32 10*6/uL High 3.90 - 5.20 m/uL [facility] WBC (Bld) [#/Vol] 7.84 10*3/uL [facility] Comprehensive metabolic 2000 panelon 02-14-2024 Albumin [Mass/Vol] 4.8 g/dL 3.9 - 4.9 g/dL [facility] ALP [Catalytic activity/Vol] 89 U/L 34 - 123 U/L [facility] ALT [Catalytic activity/Vol] 28 U/L 7 - 38 U/L [facility] Anion gap [Moles/Vol] 13 mmol/L 9 - 18 mmol/L [facility] AST [Catalytic activity/Vol] 28 U/L 13 - 35 U/L [facility] Bilirubin [Mass/Vol] 0.5 mg/dL 0.2 - 1.3 mg/dL [facility] Calcium [Mass/Vol] 10.2 mg/dL 8.5 - 10.2 mg/dL [facility] Chloride [Moles/Vol] 102 mmol/L 97 - 105 mmol/L [facility] CO2 [Moles/Vol] 25 mmol/L 22 - 30 mmol/L [facility] Creatinine [Mass/Vol] 1.05 mg/dL High 0.58 - 0.96 mg/dL [facility] GFR/1.73 sq M.predicted among non-blacks MDRD (S/P/Bld) [Vol rate/Area] 57 mL/min/{1.73_m2} Low - PINF [facility] Comment on above: Estimated Glomerular Filtration Rate (eGFR) is calculated using the 2020 CKD-EPI creatinine equation. This equation utilizes serum creatinine, sex, and age as parameters. The creatinine assay has traceable calibration to isotope dilution-mass spectrometry. Refer to KDIGO guidelines for clinical interpretation. In patients with unstable renal function, e.g. those with acute kidney injury, the eGFR may not accurately reflect actual GFR. Glucose [Mass/Vol] 109 mg/dL High 74 - 99 mg/dL [facility] Comment on above: The [place] Diabete s Association (ADA) provides guidance for cutoff values for fasting glucose and random glucose. The ADA defines fasting as no caloric intake for at least 8 hours. Fasting plasma glucose results between 100 to 125 mg/dL indicate increased risk for diabetes (prediabetes). Fasting plasma glucose results greater than or equal to 126 mg/dL meet the criteria for diagnosis of diabetes. In the absence of unequivocal hyperglycemia, results should be confirmed by repeat testing. In a patient with classic symptoms of hyperglycemia or hyperglycemic crisis, random plasma glucose results greater than or equal to 200 mg/dL meet the criteria for diagnosis of diabetes. Reference: Standards of Medical Care in Diabetes 2016, [place] [employer]. Diabetes Care. 2016.39(Suppl 1). Interpretation and review of laboratory results Abnormal [facility] Potassium [Moles/Vol] 4.3 mmol/L 3.7 - 5.1 mmol /L [facility] Protein [Mass/Vol] 7.7 g/dL 6.3 - 8.0 g/dL Cl [facility] Sodium [Moles/Vol] 140 mmol/L 136 - 144 mmol/L [facility] Urea nitrogen [Mass/Vol] 26 mg/dL High 7 - 21 mg/dL [facility] HbA1c (Bld)on 02-14-2024 Average glucose Estimated from glycated hemoglobin (Bld) [Mass/Vol] 134 mg/dL [facility] Comment on above: eAG: (Estimated aver age glucose) is a calculated value from HgbA1c and is safety representative of the average blood glucose level in the last 2-3 month period. HbA1c (Bld) [Mass fraction] 6.3 % High 4.3 - 5.6 % [facility] Comment on above: [place] [employer] sociation guidelines indicate that patients with HgbA1c in the range 5.7-6.4% are at increased risk for development of diabetes, and intervention by lifestyle modification may be beneficial. HgbA1c greater or equal to 6.5% is considered diagnostic of diabetes. Interpretation and review of laboratory results Abnormal [facility] No Panel InformationOrdered By: Amie Bear on 02-14-2024 Interpretation and review of laboratory results Normal [facility] PT panel Coag (PPP)Ordered B y: Amie Bear on 02-14-2024 INR Coag (PPP) [Relative time] 1.0 {INR} 0.9 - 1.3 [facility] Comment on above: Vitamin K Antagonist (VKA) Therapeutic Range: INR 2 to 3 (Target INR of 2.5) Note: For patients treated with VKA drugs, such as warfarin, the [place] [employer] 2012 Guideline recommends a therapeutic INR range of 2 to 3 (target INR of 2.5). This recommendation includes high-risk patients with antiphospholipid syndrome with previous arterial or venous thromboembolism, current-generation mechanical or bioprosthetic aortic heart valve replacement. Note: Patients with mechanical aortic valve replacement and additional risk factors for thromboembolic events (atrial fibrillation, previous thromboembolism, LV dysfunction, hypercoagulable conditions) or an older generation mechanical AVR (i.e., ball in-Cage) or any mechanical MVR should have a INR therapeutic range of 2.5 to 3.5 (target INR of 3). Harpal GH, et al. Chest 2012, 141:7S-47S Reta RA et al. [facility] 2017, 70: 252-289 PT Coag (PPP) [Time] 10.9 s [facility] THYROID STIMULATING HORMONEo n 02-14-2024 TSH Qn 2.280 m[IU]/L [facility] TSH Qnon 02-14-2024 Interpretation and review of laboratory results Normal [facility] [facility] VITAMIN D 25 HYDROXYon 02-13 25-hydroxyvitamin D3 [Mass/Vol] 36.4 ng/mL 31.0 - 80.0 ng/mL [facility] Comment on above: Classification of 25 [place] Vitamin D status: Deficiency/Insufficiency: < or = 30 ng/ml. Sufficiency/Optimal Levels: 31-80 ng/mL Toxicity: > 100 ng/mL. Test performed by chemiluminescent immunoassay. aPTT Coag (PPP) [Time]Ordere d By: Amie Bear on 02-14-2024 Unfractionated Hepar in Therapeutic Ranges: Standard Heparin Nomogram: 53 to 78 seconds (anti-Xa level of 0.3 to 0.7 U/ml) Low Dose/ACS Nomogram: 49 to 67 seconds (anti-Xa level of 0.2 to 0.5 U/ml) Stroke Treatment Nomogram: 49 to 67 seconds (anti-Xa level of 0.2 to 0.5 U/ml) Note: The APTT therapeutic range has been determined for the current lot of laboratory APTT reagent in use throughout the [facility]. [facility] US ABD SPLEEN - NBon 024 [facility] US Abdomen RUQon 12-26-2023 [facility] No Panel Informationon 06-26 [facility] US BREAST LTD RIGHTon 2022 [facility] NIC SCREENING W TOMOon 12-26 [facility] BRIEF OP NOTon 12-11-2022 BRIEF OP NOT HNO ID: [id number] Author: Zaida Miguel MD Service: Radiology Author Type: Physician Type: Brief Op Note Filed: 12/11/2022 11:10 AM Note Text: BRIEF OPERATIVE / PROCEDURE NOTE LOG ID: [id number] SURGERY/PROCEDURE DATE: 12/11/2022 INCISION/PROCEDURE START TIME: 10:34 AM INCISION CLOSE/PROCEDURE END TIME: 10:44 AM SURGEON(S)/PROCEDURALI ST(S) AND DRYWALL HANGER(S): Surgeon(s) and Role: * Zaida Miguel MD - Primary No Additional Staff SURGERY/PROCEDURE(S): TRANSJUGULAR LIVER BIOPSY AND PRESSURES ANESTHESIA: Procedural Sedation FINDINGS: NO PORTAL HYPERTENSION. 2 PASSES AND 2 CORES FROM [facility] IN [place]. ESTIMATED BLOOD LOSS: 3 mls SPECIMENS: SURG PATH COMPLICATIONS: None PRE-OP/PRE-PROCEDURE DIAGNOSIS: FATTY LIVER POST-OP/POST-PROCEDURE DIAGNOSIS: Same as Preop SIGNATURE: Zaida Miguel MD PATIENT NAME: Lisandra Abreu DATE: December 11, 2022 TIME: 11:09 AM [facility] HISTORY PHYSICALon 3 HISTORY PHYSICAL HNO ID: [id number] Author: Zaida Miguel MD Service: Radiology Author Type: Physician Type: HANDP Filed: 12/11/2022 10:03 AM Note Text: RADIOLOGY PROCEDURAL SEDATION HISTORY AND PHYSICAL EXAM SERVICE DATE: 12/11/2022 SERVICE TIME: 10:02 AM Subjective HPI: This is a 67 year old female who presents with FATTY LIVER AND DM REQUIRING TRANSJUGULAR LIVER BIOPSY AND PRESSURES. PROCEDURE SCHEDULED: Procedure(s) with comments: PETRA TRANSCATHETER BIOPSY (Pending) - NEEDS A PARKING PASS RADIOLOGY ORDER PLACED: PAST ANESTHESIA HISTORY: No history of adverse event PAST MEDICAL HISTORY Diagnosis Date Arthritis Diabetes (HCC) Family history of colon cancer Hx of colonic polyps Hypertension Lichen sclerosus et atrophicus ELVER (obstructive sleep apnea) uses cpap. sees Dr. Walters. Snoring TIA (transient ischemic attack) 2014 PAST SURGICAL HISTORY Procedure Laterality Date BACK SURGERY HX BREAST BX NEEDLE CORE LEFT Left 06/19/2022 ultrasound guided needle core biopsy left breast BREAST SURGERY HX 07/11/2022 left breast lumpectomy COLONOSCOPY FLX DX W/COLLJ SPEC WHEN PFRMD 08/25/2015 Colonoscopy COLONOSCOPY FLX DX W/COLLJ SPEC WHEN PFRMD 02/25/2020 Colonoscopy 5 yr interval ESOPHAGOGASTRODUODENOS COPY TRANSORAL DIAGNOSTIC 02/25/2020 esophagitis, intestinal metaplasia on stomach biopsies. Repeat in 2-3 years HAND SURGERY HX several on both hands HYSTERECTOMY HX with subsequent BSO KIDNEY SURGERY HX 1997 left kidney removed from cancer LEFT HEART CATH,PERCUTANEOUS normal per Dr. Cheema TONSILLECTOMY AND ADENOIDECTOMY Prior to Admission medications as of 12/11/22 0858 Medication Sig Last Dose Taking metFORMIN ER (FORTAMET) 500 mg 24 hr tablet Take 1 tablet by mouth daily with breakfast. May substitute atorvastatin (LIPITOR) 80 mg tablet Take 1 tablet by mouth once daily. L. acidophilus-L. rhamnosus 15 billion cell cap Take 1 capsule by mouth once daily. FLORAJEN WOMEN. If on antibiotic, take at least 1-2 hours before or after antibiotic. KEEP REFRIGERATED losartan (COZAAR) 100 mg tablet Take 1 tablet by mouth once daily. hydroCHLOROthiazide (HYDRODIURIL, ESIDRIX) 25 mg tablet Take 1 tablet by mouth once daily. meloxicam (MOBIC) 15 mg tablet Take 1 tablet by mouth once daily. amLODIPine (NORVASC) 10 mg tablet Take 10 mg by mouth once daily. Going to double check dosage. atenolol (TENORMIN) 50 mg tablet Take 50 mg by mouth once daily. neomycin/polymyxin B/dexametha (IFBCLUQE-DWIEVVRQK-IL XAMETH OPHTHALMIC) Use in eyes as needed. Cholecalciferol, Vitamin D3, 50 mcg (2,000 unit) cap Take 50 capsules by mouth. aspirin, enteric coated (ASPIRIN, ENTERIC COATED) 81 mg EC tablet Take 81 mg by mouth once daily. Clobetasol taper - compound [facility] Clobetasol 0.07% ointment. Use to affected area twice daily x 4 weeks then at bedtime x 4 weeks then 1-2 times per week. FOLIC ACID/MULTIVIT-MIN/LUTE IN (CENTRUM SILVER ORAL) Take by mouth once daily. Biotin 10,000 mcg cap Take 5,000 mcg by mouth once daily. KRILL OIL ORAL Take 800 mg by mouth once daily. ALLERGIES Allergen Reactions Erythromycin Rash Miroslava Inhibitors Cough Atenolol Intolerance Sweating, hard time breathing Carvedilol Intolerance Slight headache, leg cramps, sweating Corgard [Nadolol] Intolerance Heavy chest, sweating, hot flashes Diltiazem Intolerance Dizzy/ heart thumping, heard to breathe Metoprolol Intolerance Chest tight, hot flash/sweat Tetracycline Hcl (B* Hives blisters Verapamil Intolerance Short of breath, fatigue, indigestion, rash Objective PHYSICAL EXAM: The remainder of the physical exam is noncontributory. GENERAL: Alert, no distress, cooperative, Morbidly Obese AIRWAY: Airway Visualization of Uvula: Yes Mouth opening greater than 2 fingerbreadths: Yes Neck Full Range of Motion: Yes LUNGS: Lungs clear to auscultation, Good diaphragmatic excursion CARDIAC: Normal S1 and S2; no rubs, murmurs, or gallops Assessment/Plan ASA Class: ASA Class:: Patient with severe systemic disease Provisional Diagnosis/Treatment Plan: TRANSJUGULAR LIVER BIOPSY AND PRESSURES SEDATION GOAL: Moderate SIGNATURE: Zaida Miguel MD PATIENT NAME: Lisandra Abreu DATE: December 11, 2022 TIME: 10:01 AM [facility] IR HEPATIC VENOGRAM W/PRESSo n 12-11-2022 IR HEPATIC VENOGRAM W/PRESS * * *Final Report* * * DATE OF EXAM: Dec 11 2022 10:51AM [facility] - IR HEPATIC VENOGRAM W/PRESS / PROCEDURE REASON: Fatty liver [K76.0] * * * * Physician Interpretation * * * * PROCEDURE: TRANSJUGULAR LIVER BIOPSY WITH PRESSURE MEASUREMENTS Procedural Personnel Attending physician(s): Zaida Miguel M.D. Fellow physician(s): None Resident physician(s): None Advanced practice provider(s): None Medical Student(s): None Pre-procedure diagnosis: Fatty liver Post-procedure diagnosis: Same Indication: Elevated liver enzymes Additional clinical history: History of diabetes and heart failure. PROCEDURE SUMMARY: - Venous access with ultrasound guidance - Hepatic venography - Pressure measurements - Transjugular liver biopsy with fluoroscopic guidance - Additional procedure(s): None PROCEDURE DETAILS: Pre-procedure Consent: Consent obtained with the patient as documented. Medication reconciliation: Done Renetta-procedure discussion: The appropriate elements of the pre-procedure discussion, safety check list and sign-out were performed. Time out was completed before start of procedure. Preparation: The site was prepared and draped using maximal sterile barrier technique including cutaneous antisepsis. Contrast: Contrast agent: OMNIPAQUE 240 Contrast volume (mL): 5 mL Image Guidance: Fluoroscopic and sonographic guidance with digital image storage RADIATION/DOSE: FLUOROSCOPIC RADIATION SUMMARY: Plane A, Air Kerma: 39.0 mGy Dose Area Product (DAP): 9883.9 mGy*cm2 Fluoro Time: 1:18 min:sec Radiation dose exceed 3.5 Gy: No If radiation dose exceeded 3.5 Gy, was counseling and instructional brochure provided: N/A ANESTHESIA/SEDATION: Level of anesthesia/sedation: Moderate sedation (conscious sedation) Anesthesia/sedation administered by: Independent trained observer under attending supervision with continuous monitoring of the patient?s level of consciousness and physiologic status Total intra-service sedation time (minutes): 30 Local anesthesia: 2 % lidocaine Additional med: None Additional med: None Start of procedure: 10:34 End of procedure: 10:44 TECHNIQUE: Patient position: Supine Access Local anesthesia was administered. The vessel was sonographically evaluated and determined to be patent. Real time ultrasound was used to visualize needle entry into the vessel and a permanent image was stored. A 9 F long vascular sheath was placed. Vein accessed: Right internal jugular vein Access technique: Micropuncture set with 21 gauge needle Venography Vein catheterized: Middle hepatic vein Indication for venography: Diagnostic venography for suspected stenosis or occlusion Findings: Normal caliber middle hepatic vein with no stenosis, webs or filling defects. Pressure measurements Pressure measurements were obtained via balloon occlusion catheter. Mean right atrial pressure (mmHg): 3 Mean IVC pressure (mmHg): 5 Mean free hepatic vein pressure (mmHg): 7 Mean wedged hepatic vein pressure (mmHg): 10 Biopsy Samples were obtained of the liver parenchyma from the hepatic vein using the transjugular liver biopsy set. Core needle biopsy device: Argon TLAB 7 F Transjugular Liver Biopsy System (18 G needle) Core needle size (gauge): 18 G Number of core specimens: 2 Specimen preparation: Formalin Additional Details Additional description of procedure: None Equipment details: None Specimens removed: Biopsy samples as detailed above. Surgical pathology Estimated blood loss (mL): Less than 10 Standardized report: [email or web address] iopsy_v3 Closure The sheath was removed and hemostasis was achieved with manual compression and no additional aid. A sterile bandage was applied. COMPLICATIONS: No immediate complications CONCLUSION: The patient was comfortable and was transferred to the recovery room in stable condition. The procedure was performed by the: attending radiologist, without an distribution center assistant. The attending radiologist performed the following procedural activities: Entire procedure IMPRESSION: TRANSJUGULAR LIVER BIOPSY OBTAINED. THE CORRECTED SINUSOIDAL PRESSURE (WEDGED HEPATIC VEIN PRESSURE MINUS FREE HEPATIC VEIN PRESSURE) IS 3 MMHG. PLAN: SPECIMEN(S) SENT FOR EVALUATION. ATTESTATION: Signer name: Zaida Miguel I attest that I was present for the entire procedure. I reviewed the stored images and agree with the report as written. Hhas: PSCB Transcribe Date/Time: Dec 11 2022 10:55A Dictated by : ZAIDA MIGUEL MD This examination was interpreted and the report reviewed and electronically signed by: ZAIDA MIGUEL MD on Dec 11 2022 10:58AM EST [id number] [facility] IR TRANSCATH BIOPSY SURGon 0 12-11-2022 IR TRANSCATH BIOPSY SURG * * *Final Report* * * DATE OF EXAM: Dec 11 2022 10:51AM [facility] - IR TRANSCATH BIOPSY SURG / PROCEDURE REASON: Fatty liver [K76.0] * * * * Physician Interpretation * * * * PROCEDURE: TRANSJUGULAR LIVER BIOPSY WITH PRESSURE MEASUREMENTS Procedural Personnel Attending physician(s): Zaida Miguel M.D. Fellow physician(s): None Resident physician(s): None Advanced practice provider(s): None Medical Student(s): None Pre-procedure diagnosis: Fatty liver Post-procedure diagnosis: Same Indication: Elevated liver enzymes Additional clinical history: History of diabetes and heart failure. PROCEDURE SUMMARY: - Venous access with ultrasound guidance - Hepatic venography - Pressure measurements - Transjugular liver biopsy with fluoroscopic guidance - Additional procedure(s): None PROCEDURE DETAILS: Pre-procedure Consent: Consent obtained with the patient as documented. Medication reconciliation: Done Renetta-procedure discussion: The appropriate elements of the pre-procedure discussion, safety check list and sign-out were performed. Time out was completed before start of procedure. Preparation: The site was prepared and draped using maximal sterile barrier technique including cutaneous antisepsis. Contrast: Contrast agent: OMNIPAQUE 240 Contrast volume (mL): 5 mL Image Guidance: Fluoroscopic and sonographic guidance with digital image storage RADIATION/DOSE: FLUOROSCOPIC RADIATION SUMMARY: Plane A, Air Kerma: 39.0 mGy Dose Area Product (DAP): 9883.9 mGy*cm2 Fluoro Time: 1:18 min:sec Radiation dose exceed 3.5 Gy: No If radiation dose exceeded 3.5 Gy, was counseling and instructional brochure provided: N/A ANESTHESIA/SEDATION: Level of anesthesia/sedation: Moderate sedation (conscious sedation) Anesthesia/sedation administered by: Independent trained observer under attending supervision with continuous monitoring of the patient?s level of consciousness and physiologic status Total intra-service sedation time (minutes): 30 Local anesthesia: 2 % lidocaine Additional med: None Additional med: None Start of procedure: 10:34 End of procedure: 10:44 TECHNIQUE: Patient position: Supine Access Local anesthesia was administered. The vessel was sonographically evaluated and determined to be patent. Real time ultrasound was used to visualize needle entry into the vessel and a permanent image was stored. A 9 F long vascular sheath was placed. Vein accessed: Right internal jugular vein Access technique: Micropuncture set with 21 gauge needle Venography Vein catheterized: Middle hepatic vein Indication for venography: Diagnostic venography for suspected stenosis or occlusion Findings: Normal caliber middle hepatic vein with no stenosis, webs or filling defects. Pressure measurements Pressure measurements were obtained via balloon occlusion catheter. Mean right atrial pressure (mmHg): 3 Mean IVC pressure (mmHg): 5 Mean free hepatic vein pressure (mmHg): 7 Mean wedged hepatic vein pressure (mmHg): 10 Biopsy Samples were obtained of the liver parenchyma from the hepatic vein using the transjugular liver biopsy set. Core needle biopsy device: Argon TLAB 7 F Transjugular Liver Biopsy System (18 G needle) Core needle size (gauge): 18 G Number of core specimens: 2 Specimen preparation: Formalin Additional Details Additional description of procedure: None Equipment details: None Specimens removed: Biopsy samples as detailed above. Surgical pathology Estimated blood loss (mL): Less than 10 Standardized report: [email or web address] iopsy_v3 Closure The sheath was removed and hemostasis was achieved with manual compression and no additional aid. A sterile bandage was applied. COMPLICATIONS: No immediate complications CONCLUSION: The patient was comfortable and was transferred to the recovery room in stable condition. The procedure was performed by the: attending radiologist, without an distribution center assistant. The attending radiologist performed the following procedural activities: Entire procedure IMPRESSION: TRANSJUGULAR LIVER BIOPSY OBTAINED. THE CORRECTED SINUSOIDAL PRESSURE (WEDGED HEPATIC VEIN PRESSURE MINUS FREE HEPATIC VEIN PRESSURE) IS 3 MMHG. PLAN: SPECIMEN(S) SENT FOR EVALUATION. ATTESTATION: Signer name: Zaida Miguel I attest that I was present for the entire procedure. I reviewed the stored images and agree with the report as written. Hhas: PSCB Transcribe Date/Time: Dec 11 2022 10:55A Dictated by : ZAIDA MIGUEL MD This examination was interpreted and the report reviewed and electronically signed by: ZAIDA MIGUEL MD on Dec 11 2022 10:58AM EST [id number] [facility] IR US VASCULAR ACCESS GUIDEo n 12-11-2022 IR US VASCULAR ACCESS GUIDE * * *Final Report* * * DATE OF EXAM: Dec 11 2022 10:51AM [facility] - IR US VASCULAR ACCESS GUIDE / PROCEDURE REASON: Fatty liver [K76.0] * * * * Physician Interpretation * * * * PROCEDURE: TRANSJUGULAR LIVER BIOPSY WITH PRESSURE MEASUREMENTS Procedural Personnel Attending physician(s): Zaida Miguel M.D. Fellow physician(s): None Resident physician(s): None Advanced practice provider(s): None Medical Student(s): None Pre-procedure diagnosis: Fatty liver Post-procedure diagnosis: Same Indication: Elevated liver enzymes Additional clinical history: History of diabetes and heart failure. PROCEDURE SUMMARY: - Venous access with ultrasound guidance - Hepatic venography - Pressure measurements - Transjugular liver biopsy with fluoroscopic guidance - Additional procedure(s): None PROCEDURE DETAILS: Pre-procedure Consent: Consent obtained with the patient as documented. Medication reconciliation: Done Renetta-procedure discussion: The appropriate elements of the pre-procedure discussion, safety check list and sign-out were performed. Time out was completed before start of procedure. Preparation: The site was prepared and draped using maximal sterile barrier technique including cutaneous antisepsis. Contrast: Contrast agent: OMNIPAQUE 240 Contrast volume (mL): 5 mL Image Guidance: Fluoroscopic and sonographic guidance with digital image storage RADIATION/DOSE: FLUOROSCOPIC RADIATION SUMMARY: Plane A, Air Kerma: 39.0 mGy Dose Area Product (DAP): 9883.9 mGy*cm2 Fluoro Time: 1:18 min:sec Radiation dose exceed 3.5 Gy: No If radiation dose exceeded 3.5 Gy, was counseling and instructional brochure provided: N/A ANESTHESIA/SEDATION: Level of anesthesia/sedation: Moderate sedation (conscious sedation) Anesthesia/sedation administered by: Independent trained observer under attending supervision with continuous monitoring of the patient?s level of consciousness and physiologic status Total intra-service sedation time (minutes): 30 Local anesthesia: 2 % lidocaine Additional med: None Additional med: None Start of procedure: 10:34 End of procedure: 10:44 TECHNIQUE: Patient position: Supine Access Local anesthesia was administered. The vessel was sonographically evaluated and determined to be patent. Real time ultrasound was used to visualize needle entry into the vessel and a permanent image was stored. A 9 F long vascular sheath was placed. Vein accessed: Right internal jugular vein Access technique: Micropuncture set with 21 gauge needle Venography Vein catheterized: Middle hepatic vein Indication for venography: Diagnostic venography for suspected stenosis or occlusion Findings: Normal caliber middle hepatic vein with no stenosis, webs or filling defects. Pressure measurements Pressure measurements were obtained via balloon occlusion catheter. Mean right atrial pressure (mmHg): 3 Mean IVC pressure (mmHg): 5 Mean free hepatic vein pressure (mmHg): 7 Mean wedged hepatic vein pressure (mmHg): 10 Biopsy Samples were obtained of the liver parenchyma from the hepatic vein using the transjugular liver biopsy set. Core needle biopsy device: Argon TLAB 7 F Transjugular Liver Biopsy System (18 G needle) Core needle size (gauge): 18 G Number of core specimens: 2 Specimen preparation: Formalin Additional Details Additional description of procedure: None Equipment details: None Specimens removed: Biopsy samples as detailed above. Surgical pathology Estimated blood loss (mL): Less than 10 Standardized report: [email or web address] iopsy_v3 Closure The sheath was removed and hemostasis was achieved with manual compression and no additional aid. A sterile bandage was applied. COMPLICATIONS: No immediate complications CONCLUSION: The patient was comfortable and was transferred to the recovery room in stable condition. The procedure was performed by the: attending radiologist, without an distribution center assistant. The attending radiologist performed the following procedural activities: Entire procedure IMPRESSION: TRANSJUGULAR LIVER BIOPSY OBTAINED. THE CORRECTED SINUSOIDAL PRESSURE (WEDGED HEPATIC VEIN PRESSURE MINUS FREE HEPATIC VEIN PRESSURE) IS 3 MMHG. PLAN: SPECIMEN(S) SENT FOR EVALUATION. ATTESTATION: Signer name: Zaida Fatuma I attest that I was present for the entire procedure. I reviewed the stored images and agree with the report as written. Hhas: PSCB Transcribe Date/Time: Dec 11 2022 10:55A Dictated by : ZAIDA MIGUEL MD This examination was interpreted and the report reviewed and electronically signed by: ZAIDA MIGUEL MD on Dec 11 2022 10:58AM EST [id number] [facility] IR VENO 1ST ORDER CATH [address] on 12-11-2022 IR [address] * * *Final Report* * * DATE OF EXAM: Dec 11 2022 10:51AM [facility] - IR VENO 1ST ORDER CATH PL[address] / PROCEDURE REASON: Fatty liver [K76.0] * * * * Physician Interpretation * * * * PROCEDURE: TRANSJUGULAR LIVER BIOPSY WITH PRESSURE MEASUREMENTS Procedural Personnel Attending physician(s): Zaida Miguel M.D. Fellow physician(s): None Resident physician(s): None Advanced practice provider(s): None Medical Student(s): None Pre-procedure diagnosis: Fatty liver Post-procedure diagnosis: Same Indication: Elevated liver enzymes Additional clinical history: History of diabetes and heart failure. PROCEDURE SUMMARY: - Venous access with ultrasound guidance - Hepatic venography - Pressure measurements - Transjugular liver biopsy with fluoroscopic guidance - Additional procedure(s): None PROCEDURE DETAILS: Pre-procedure Consent: Consent obtained with the patient as documented. Medication reconciliation: Done Renetta-procedure discussion: The appropriate elements of the pre-procedure discussion, safety check list and sign-out were performed. Time out was completed before start of procedure. Preparation: The site was prepared and draped using maximal sterile barrier technique including cutaneous antisepsis. Contrast: Contrast agent: OMNIPAQUE 240 Contrast volume (mL): 5 mL Image Guidance: Fluoroscopic and sonographic guidance with digital image storage RADIATION/DOSE: FLUOROSCOPIC RADIATION SUMMARY: Plane A, Air Kerma: 39.0 mGy Dose Area Product (DAP): 9883.9 mGy*cm2 Fluoro Time: 1:18 min:sec Radiation dose exceed 3.5 Gy: No If radiation dose exceeded 3.5 Gy, was counseling and instructional brochure provided: N/A ANESTHESIA/SEDATION: Level of anesthesia/sedation: Moderate sedation (conscious sedation) Anesthesia/sedation administered by: Independent trained observer under attending supervision with continuous monitoring of the patient?s level of consciousness and physiologic status Total intra-service sedation time (minutes): 30 Local anesthesia: 2 % lidocaine Additional med: None Additional med: None Start of procedure: 10:34 End of procedure: 10:44 TECHNIQUE: Patient position: Supine Access Local anesthesia was administered. The vessel was sonographically evaluated and determined to be patent. Real time ultrasound was used to visualize needle entry into the vessel and a permanent image was stored. A 9 F long vascular sheath was placed. Vein accessed: Right internal jugular vein Access technique: Micropuncture set with 21 gauge needle Venography Vein catheterized: Middle hepatic vein Indication for venography: Diagnostic venography for suspected stenosis or occlusion Findings: Normal caliber middle hepatic vein with no stenosis, webs or filling defects. Pressure measurements Pressure measurements were obtained via balloon occlusion catheter. Mean right atrial pressure (mmHg): 3 Mean IVC pressure (mmHg): 5 Mean free hepatic vein pressure (mmHg): 7 Mean wedged hepatic vein pressure (mmHg): 10 Biopsy Samples were obtained of the liver parenchyma from the hepatic vein using the transjugular liver biopsy set. Core needle biopsy device: Argon TLAB 7 F Transjugular Liver Biopsy System (18 G needle) Core needle size (gauge): 18 G Number of core specimens: 2 Specimen preparation: Formalin Additional Details Additional description of procedure: None Equipment details: None Specimens removed: Biopsy samples as detailed above. Surgical pathology Estimated blood loss (mL): Less than 10 Standardized report: [email or web address] iopsy_v3 Closure The sheath was removed and hemostasis was achieved with manual compression and no additional aid. A sterile bandage was applied. COMPLICATIONS: No immediate complications CONCLUSION: The patient was comfortable and was transferred to the recovery room in stable condition. The procedure was performed by the: attending radiologist, without an distribution center assistant. The attending radiologist performed the following procedural activities: Entire procedure IMPRESSION: TRANSJUGULAR LIVER BIOPSY OBTAINED. THE CORRECTED SINUSOIDAL PRESSURE (WEDGED HEPATIC VEIN PRESSURE MINUS FREE HEPATIC VEIN PRESSURE) IS 3 MMHG. PLAN: SPECIMEN(S) SENT FOR EVALUATION. ATTESTATION: Signer name: Zaida Fatuma I attest that I was present for the entire procedure. I reviewed the stored images and agree with the report as written. Hhas: MARCELA Transcribe Date/Time: Dec 11 2022 10:55A Dictated by : ZAIDA MIGUEL MD This examination was interpreted and the report reviewed and electronically signed by: ZAIDA MIGUEL MD on Dec 11 2022 10:58AM EST [id number] [facility] NURSING PROGon 12-11-2022 NURSING PROG HNO ID: [id number] Author: Izabel Gonzales RN Service: Nursing Author Type: Registered Nurse Type: Nursing Progress Note Filed: 12/11/2022 8:52 AM Note Text: PATIENT EDUCATION TOPIC: PROCEDURE / SURGERY: Procedure/Surgery: Transjugular liver biopsy PATIENT NAME: Lisandra Abreu PATIENT LOCATION: INTERVENTIONAL RADIOL* READINESS TO LEARN COGNITIVE ABILITY: Alert and oriented MOTIVATION TO LEARN: Interested FAMILY SUPPORT: High - Very involved in pt care INSTRUCTION PROVIDED TO: Patient and family member PATIENT LEARNS BEST BY: Written Instruction - Hand-outs Verbal Instruction FACTORS AFFECTING LEARNING: None PHYSICAL LIMITATIONS AFFECTING LEARNING: None LEARNING RESPONSE DIAGNOSIS: ADULT: Transjugular liver biopsy PATIENT/FAMILY RESPONSE: Verbalizes understanding of: POST-PROCEDURE INSTRUCTIONS-Correct actions to take to reduce post procedure complications PRE-PROCEDURE INSTRUCTIONS-Correct action to take to follow pre-procedure instructions METHOD OF INSTRUCTION: Written instruction - handouts Verbal instruction FOLLOW-UP PLAN: Complete - No need for follow-up INSTRUCTIONAL AIDS USED: NA SUPPLEMENTAL MATERIAL PROVIDED TO PATIENT: None REFERRAL (RECOMMENDATION): None Electronically Signed By: Izabel Gonzales [facility] SURGICAL PATHOLOGYon 023 CASE REPORT [facility] Comment on above: Order Comment: Speci men Type: TISSUE SPECIMEN Ordering Facility: [facility] Address: [address] [place] [address] [place] [address] Result Comment: Surg ical Pathology Report Case: [id number] Authorizing Provider: Zaida Miguel MD Collected: 12/11/2022 10:43 AM Ordering Location: INTERVENTIONAL Received: 12/11/2022 11:32 AM RADIOLOGY Pathologist: Nat Smith MD Specimen: LIVER BIOPSY Performed By: #### S #### [facility] CLIA [id number] [facility] CLINICAL HISTORY Fatty liver. Normal [facility] Comment on above: Order Comment: Speci men Type: TISSUE SPECIMEN Ordering Facility: [facility] Address: [address] [place] [address] Performed By: #### S #### [facility] CLIA [id number] DIAGNOSIS COMMENT Normal [facility] Comment on above: Order Comment: Speci gauri Type: TISSUE SPECIMEN Ordering Facility: [facility] Address: [address] [place] [address] Result Comment: H&E and special stains are examined. The normal lobular hepatic architecture is distorted by bridging fibrosis, confirmed on the trichrome stain. The biopsy demonstrates mild predominantly macrovesicular steatosis involving approximately 30% of the biopsy. There are scattered foci of ballooning hepatocyte degeneration. Brittany Denk bodies are not identified. Lobular inflammation is mild. There is no cholestasis. The portal areas harbor their usual structures and contain mild predominantly mononuclear inflammatory cell infiltrates. Plasma cells are not prominent and there is no interface hepatitis. The bile ducts appear normal. There is no duct damage or duct loss. Granulomas are not seen. The portal vasculature is unremarkable. The iron stain is negative. The PAS after diastase is negative for alpha-1 antitrypsin inclusions. Fatty Liver Disease Scoring NAFLD Activity Score (ANABELA): Steatosis: 1 (5-33%) Lobular inflammation (foci per 20x field): 2 (2-4) Hepatocyte balloonin (many) Total Score: 5/8. Stage: 3 (bridging) Other features: Brittany hyaline: Negative Reference: Shahab MCCLELLAN, Katya EM, et al. Hepatology 41(6):1313-21, 2005. Performed By: #### S #### [facility] CLIA [id number] [facility] [address] FINAL DIAGNOSIS Normal [facility] Comment on above: Order Comment: Carol astorga Type: TISSUE SPECIMEN Ordering Facility: [facility] Address: [address] [place] [address] Result Comment: Germain. 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 - See comment. Heri 12/12/2022 Performed By: #### S #### [facility] CLIA [id number] [address] [place] [address] OF [facility] FINAL PERFORMING LAB Normal [facility] Comment on above: Order Comment: Carol astorga Type: TISSUE SPECIMEN Ordering Facility: [facility] Address: [address] [place] [address] Result Comment: Diag nostic interpretation performed at [facility], [address] [place] [address] CLIA# [id number] Grain Drier Operator: Marcelino Zamudio M.D. Performed By: #### S #### [facility] CLIA [id number] [address] [place] [address] [place] GROSS DESCRIPTION A. LIVER BIOPSY Normal [facility] Comment on above: Order Comment: Carol astorga Type: TISSUE SPECIMEN Ordering Facility: [facility] Address: [address] [place] [address] Result Comment: Rece ived in formalin are two segments of cylindrical tissue aggregating to 1.2 x 0.2 x 0.1 cm, solorzano-brown and of a soft and friable consistency. Totally submitted in formalin in one cassette. Gross examination performed at [facility], [address] [place] [address] JS 12/11/2022 3:30 PM Performed By: #### S #### [facility] CLIA [id number] [address] [place] [address] [place] CNPBobbi 12-07-2022 CNPN Telephone ([facility]) BRADYLISANDRA ([id number]) 1955 F Date Time Provider Department 12/07/22 ANTONIO WONG IRREDU During your visit today, we recorded the following information about you: Antonio Wong RN 12/07/2022 3:04 PM Signed You are scheduled for a transjugular liver biopsy, On Sunday, December 11, 2022. You are to arrive at 8:30 am and Report to [facility] First Floor Radiology Registration Desk. You can expect to be here for about 4 hours. [facility] is located at: [address] [place] [address] Diet: Do not eat any solid food after midnight the day of/night before your procedure. You may drink clear liquids until 7:00 am, which means black coffee, apple juice, black tea, or water only. Medications: Ok to take your cardiac, blood pressure, anti-seizure, and chronic pain medications with a sip of water, please take prior to arrival. Bring your current medication list. Labs: Lab-work needs to be drawn? Yes, a CBC and INR needs to be drawn at least one day prior to procedure. Please bring a copy of the results if they are not done at a [facility] facility. . Anthropology Faculty Member/Transportation: How will you be arriving for your procedure? Private car. You will need a responsible adult to accompany you to and from the procedure. Your milk pickup truck driver is required to stay with you until you are taken into the procedure room. If you have any questions, please call, , Option 3. Allergies As of Date: 12/07/2022 Noted Allergy Reaction ERYTHROMYCIN 02/20/2017 2 - Rash MIROSLAVA INHIBITORS 07/13/2021 3 - Cough ATENOLOL 07/13/2021 5 - Intolerance Comments: Sweating, hard time breathing CARVEDILOL 07/13/2021 5 - Intolerance Comments: Slight headache, leg cramps, sweating CORGARD (NADOLOL) 07/13/2021 5 - Intolerance Comments: Heavy chest, sweating, hot flashes DILTIAZEM 07/13/2021 5 - Intolerance Comments: Dizzy/ heart thumping, heard to breathe METOPROLOL 07/13/2021 5 - Intolerance Comments: Chest tight, hot flash/sweat TETRACYCLINE HCL (BULK) 08/22/2015 4 - Hives Comments: blisters VERAPAMIL 07/13/2021 5 - Intolerance Comments: Short of breath, fatigue, indigestion, rash Date Reviewed: 11/02/2022 Reviewed by: Sue Hassan LPN - Fully Assessed Reason for Visit: Radiology Pre Procedure Instructions [1506] Prescriptions as of 12/07/2022 - metFORMIN ER (FORTAMET) 500 mg 24 hr tablet Take 1 tablet by mouth daily with breakfast. May substitute - atorvastatin (LIPITOR) 80 mg tablet Take 1 tablet by mouth once daily. - L. acidophilus-L. rhamnosus 15 billion cell cap Take 1 capsule by mouth once daily. FLORAJEN WOMEN. If on antibiotic, take at least 1-2 hours before or after antibiotic. KEEP REFRIGERATED - losartan (COZAAR) 100 mg tablet Take 1 tablet by mouth once daily. - hydroCHLOROthiazide (HYDRODIURIL, ESIDRIX) 25 mg tablet Take 1 tablet by mouth once daily. - meloxicam (MOBIC) 15 mg tablet Take 1 tablet by mouth once daily. - amLODIPine (NORVASC) 10 mg tablet Take 10 mg by mouth once daily. Going to double check dosage. - atenolol (TENORMIN) 50 mg tablet Take 50 mg by mouth once daily. - neomycin/polymyxin B/dexametha (OQAOFKQQ-LKOXYFAJB-GU XAMETH OPHTHALMIC) Use in eyes as needed. - Cholecalciferol, Vitamin D3, 50 mcg (2,000 unit) cap Take 50 capsules by mouth. - aspirin, enteric coated (ASPIRIN, ENTERIC COATED) 81 mg EC tablet Take 81 mg by mouth once daily. - Clobetasol taper - compound [facility] Clobetasol 0.07% ointment. Use to affected area twice daily x 4 weeks then at bedtime x 4 weeks then 1-2 times per week. - FOLIC ACID/MULTIVIT-MIN/LUTE IN (CENTRUM SILVER ORAL) Take by mouth once daily. - Biotin 10,000 mcg cap Take 5,000 mcg by mouth once daily. - KRILL OIL ORAL Take 800 mg by mouth once daily. 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] 02/20/2017 07/13/2021 Primary hypertension [I10] 07/13/2021 Diabetes mellitus type 1, controlled, without c*07/13/2021 07/13/2021 Family history of renal cancer [Z80.51] 07/13/2021 07/13/2021 Lichen sclerosus [L90.0] 07/13/2021 Psoriatic arthritis (HCC) [L40.50] 07/13/2021 Psoriasis [L40.9] 07/13/2021 Family history of colon cancer [Z80.0] ELVER (obstructive sleep apnea) [G47.33] TIA (transient ischemic attack) [G45.9] 07/13/2021 Controlled type 2 diabetes mellitus without com*07/13/2021 History of renal cell cancer [Z85.528] 07/13/2021 Pulmonary HTN (HCC) [I27.20] 01/18/2022 HERRON (dyspnea on exertion) [R06.09] 07/05/2022 08/01/2022 Nonobstructive atherosclerosis of coronary paige*07/05/2022 CHF (congestive heart failure) (HCC) [I50.9] 07/05/2022 Aortic valve stenosis [I35.0] 07/05/2022 Obesity, Class III, BMI >= 40 [E66.01] (more content not included)... Normal [facility] HFE gene targeted mutation a nalysis Molgen Doc (Bld/Tiss)on 11-06-2022 Interpretation (HEMDNA) HFE (Hemochromatosis) Laboratory Accession Number: [id number] Result: C282Y: WT H63D: WT S65C: WT Interpretation: No variant detected: The DNA sample is negative for the C282Y, H63D and S65C variants of the HFE gene. Variants at these loci are commonly associated with hereditary hemochromatosis (HH). Approximately 13% of clinically affected individuals may have this negative result, suggesting other etiologies for hereditary hemochromatosis. Methodology: Patient DNA is evaluated for C282Y (c.845G>A, p.Rwl067Fmi, NM_000410.3), H63D (c.187C>G, p.Dbm08Eoi, NM_000410.3) and S65C variant (c.193A>T, p.Zmb98Aaj, NM_000410.3) missense variants in the HFE gene (NM_000410.3, GRCh37(hg19)) by multiplex polymerase chain reaction (PCR) followed by melting curve analysis. Disclaimer: This test was developed and its performance characteristics determined by [facility] [place] ([facility]). It has not been cleared or approved by the FDA. [facility] is regulated under CLIA as certified to perform high- complexity testing. This test is used for clinical purposes. It should not be regarded as investigational or for research. Testing and interpretation performed at [facility], [address] [place] [address]. CLIA Number: [id number] As reviewed by Clarissa Garcia, PhD, [facility] RHIANNA BY IFA WITH REFLEXon RHIANNA Pattern Nuclear homogenous [facility] RHIANNA Titer 1:160 [facility] Nuclear Ab IF (S) [Titer] Positive Abnormal Negative [facility] LKM ABon 11-05-2022 Liver kidney microsomal Ab IF (S) [Titer] <1:20 <1:20 [facility] Nuclear Ab IA Ql (S)on 11-03 RHIANNA by EIA, Qual Negative Negative [facility] [id number] BLon 11-02 Alpha 1 antitrypsin [Mass/Vol] 153 mg/dL 90 - 200 mg/dL [facility] CBC panel Auto (Bld)on 11-02 Erythrocyte distribution width (RBC) [Ratio] 14.8 % 11.5 - 15.0 % [facility] Hematocrit (Bld) [Volume fraction] 40.0 % 36.0 - 46.0 % [facility] Hemoglobin (Bld) [Mass/Vol] 13.2 g/dL 11.5 - 15.5 g/dL [facility] MCH (RBC) [Entitic mass] 28.4 pg 26.0 - 34.0 pg [facility] MCHC (RBC) [Mass/Vol] 33.0 g/dL 30.5 - 36.0 g/ dL [facility] MCV (RBC) [Entitic vol] 86.0 fL 80.0 - 100.0 fL [facility] Nucleated RBC (Bld) [#/Vol] <0.01 k/uL [facility] Platelet mean volume (Bld) [Entitic vol] 9.5 fL 9.0 - 12.7 fL [facility] Platelets (Bld) [#/Vol] 186 10*3/uL 150 - 400 k/uL [facility] RBC (Bld) [#/Vol] 4.65 10*6/uL 3.90 - 5.20 m/uL [facility] WBC (Bld) [#/Vol] 6.76 10*3/uL 3.70 - 11. 00 k/uL [facility] CERULOPLASMIN Don 11-02-19 Ceruloplasmin [Mass/Vol] 21 mg/dL 16 - 45 mg/dL [facility] Comprehensive metabolic 2000 panelon 11-02-2022 Albumin [Mass/Vol] 4.5 g/dL 3.9 - 4.9 g/dL [facility] ALP [Catalytic activity/Vol] 102 U/L 34 - 123 U/L [facility] ALT [Catalytic activity/Vol] 49 U/L High 7 - 38 U/L [facility] Anion gap [Moles/Vol] 12 mmol/L 9 - 18 mmol/L [facility] AST [Catalytic activity/Vol] 46 U/L High 13 - 35 U/L [facility] Bilirubin [Mass/Vol] 0.5 mg/dL 0.2 - 1.3 mg/dL [facility] Calcium [Mass/Vol] 10.3 mg/dL High 8.5 - 10.2 mg/dL [facility] Chloride [Moles/Vol] 105 mmol/L 97 - 105 mmol/L [facility] CO2 [Moles/Vol] 25 mmol/L 22 - 30 mmol/L [facility] Creatinine [Mass/Vol] 1.07 mg/dL High 0.58 - 0.96 mg/dL [facility] Estimated Glomerular Filtration Rate 56 mL/min/1.73m Low >=60 mL/min/1.73m [facility] Glucose [Mass/Vol] 133 mg/dL High 74 - 99 mg/dL [facility] Potassium [Moles/Vol] 4.5 mmol/L 3.7 - 5.1 mmol /L [facility] Protein [Mass/Vol] 7.4 g/dL 6.3 - 8.0 g/dL [facility] Sodium [Moles/Vol] 142 mmol/L 136 - 144 mmol/L [facility] Urea nitrogen [Mass/Vol] 22 mg/dL High 7 - 21 mg/dL [facility] EBV capsid IgG Qn (S)on 10-17 EBV VCA IgG, Qual Positive Abnormal Negative [facility] EBV capsid IgM Qn (S)on 10-17 EBV VCA IgM, Qual Negative Negative [facility] FERRITIN BLDon 11-02-2022 Ferritin [Mass/Vol] 288.0 ng/mL High 14.7 - 2 05.1 ng/mL [facility] GGT BLDon 11-02-2022 Gamma glutamyl transferase [Catalytic activity/Vol] 101 U/L High 6 - 46 U/L [facility] Iron and Iron binding capaci ty panelon 11-02-2022 Iron [Mass/Vol] 74 ug/dL 41 - 186 ug/dL [facility] Iron binding capacity [Mass/Vol] 312 ug/dL 232 - 386 ug/dL [facility] Iron/TIBC [Molar ratio] 23.7 % 15.0 - 57.0 % [facility] VIBRATION CONTROLLED TRANSIE NT ELASTOGRAPHY (POC)on 11-02-2022 [facility] Simón 08-27-2022 CHEN Telephone ([id number]) LISANDRA ABREU ([id number]) 1955 F Date Time Provider Department 08/27/22 MARY SCHMIDT [id number] During your visit today, we recorded the following information about you: Allergies As of Date: 08/27/2022 Noted Allergy Reaction ERYTHROMYCIN 02/20/2017 2 - Rash MIROSLAVA INHIBITORS 07/13/2021 3 - Cough ATENOLOL 07/13/2021 5 - Intolerance Comments: Sweating, hard time breathing CARVEDILOL 07/13/2021 5 - Intolerance Comments: Slight headache, leg cramps, sweating CORGARD (NADOLOL) 07/13/2021 5 - Intolerance Comments: Heavy chest, sweating, hot flashes DILTIAZEM 07/13/2021 5 - Intolerance Comments: Dizzy/ heart thumping, heard to breathe METOPROLOL 07/13/2021 5 - Intolerance Comments: Chest tight, hot flash/sweat TETRACYCLINE HCL (BULK) 08/22/2015 4 - Hives Comments: blisters VERAPAMIL 07/13/2021 5 - Intolerance Comments: Short of breath, fatigue, indigestion, rash Date Reviewed: 08/03/2022 Reviewed by: Vianney Blankenship LPN - Fully Assessed Reason for Visit: Appointment [186] Cmt: Called to Cancel appt Prescriptions as of 08/27/2022 - losartan (COZAAR) 100 mg tablet Take 1 tablet by mouth once daily. - hydroCHLOROthiazide (HYDRODIURIL, ESIDRIX) 25 mg tablet Take 1 tablet by mouth once daily. - meloxicam (MOBIC) 15 mg tablet Take 1 tablet by mouth once daily. - atorvastatin (LIPITOR) 80 mg tablet Take 1 tablet by mouth once daily. - amLODIPine (NORVASC) 10 mg tablet Take 10 mg by mouth once daily. Going to double check dosage. - metFORMIN ER (FORTAMET) 500 mg 24 hr tablet Take 1 tablet by mouth daily with breakfast. May substitute - L. acidophilus-L. rhamnosus 15 billion cell cap Take 1 capsule by mouth once daily. FLORAJEN WOMEN. If on antibiotic, take at least 1-2 hours before or after antibiotic. KEEP REFRIGERATED - atenolol (TENORMIN) 50 mg tablet Take 50 mg by mouth once daily. - neomycin/polymyxin B/dexametha ([id number]-[id number]-ZS XAMETH OPHTHALMIC) Use in eyes as needed. - Cholecalciferol, Vitamin D3, 50 mcg (2,000 unit) cap Take 50 capsules by mouth. - aspirin, enteric coated (ASPIRIN, ENTERIC COATED) 81 mg EC tablet Take 81 mg by mouth once daily. - Clobetasol taper - compound [facility] Clobetasol 0.07% ointment. Use to affected area twice daily x 4 weeks then at bedtime x 4 weeks then 1-2 times per week. - FOLIC ACID/MULTIVIT-MIN/LUTE IN (CENTRUM SILVER ORAL) Take by mouth once daily. - Biotin 10,000 mcg cap Take 5,000 mcg by mouth once daily. - KRILL OIL ORAL Take 800 mg by mouth once daily. 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] 02/20/2017 07/13/2021 Primary hypertension [I10] 07/13/2021 Diabetes mellitus type 1, controlled, without c*07/13/2021 07/13/2021 Family history of renal cancer [Z80.51] 07/13/2021 07/13/2021 Lichen sclerosus [L90.0] 07/13/2021 Psoriatic arthritis (HCC) [L40.50] 07/13/2021 Psoriasis [L40.9] 07/13/2021 Family history of colon cancer [Z80.0] ELVER (obstructive sleep apnea) [G47.33] TIA (transient ischemic attack) [G45.9] 07/13/2021 Controlled type 2 diabetes mellitus without com*07/13/2021 History of renal cell cancer [Z85.528] 07/13/2021 Pulmonary HTN (HCC) [I27.20] 01/18/2022 HERRON (dyspnea on exertion) [R06.09] 07/05/2022 08/01/2022 Nonobstructive atherosclerosis of coronary paige*07/05/2022 CHF (congestive heart failure) (HCC) [I50.9] 07/05/2022 Aortic valve stenosis [I35.0] 07/05/2022 Obesity, Class III, BMI >= 40 [E66.01] 07/11/2022 Subareolar duct papillomatosis, 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] 07/11/2022 07/11/2022 Abnormal thallium stress test [R94.39] 08/01/2022 Chest pain [R07.9] 08/01/2022 08/01/2022 Excessive sweating [R61] 08/01/2022 Fatigue [R53.83] 08/01/2022 08/01/2022 Hyperlipidemia [E78.5] 08/01/2022 Localized edema [R60.0] 01/08/2022 08/01/2022 Pounding heartbeat [R00.2] 08/01/2022 08/01/2022 Encounter Status:Closed by KATARINA WICK on 08/27/22 [facility] CNPN Telephone ([id number]) LISANDRA ABREU ([id number]) 1955 F Date Time Provider Department 08/27/22 PEDRO JACOB [id number] During your visit today, we recorded the following information about you: Allergies As of Date: 08/27/2022 Noted Allergy Reaction ERYTHROMYCIN 02/20/2017 2 - Rash MIROSLAVA INHIBITORS 07/13/2021 3 - Cough ATENOLOL 07/13/2021 5 - Intolerance Comments: Sweating, hard time breathing CARVEDILOL 07/13/2021 5 - Intolerance Comments: Slight headache, leg cramps, sweating CORGARD (NADOLOL) 07/13/2021 5 - Intolerance Comments: Heavy chest, sweating, hot flashes DILTIAZEM 07/13/2021 5 - Intolerance Comments: Dizzy/ heart thumping, heard to breathe METOPROLOL 07/13/2021 5 - Intolerance Comments: Chest tight, hot flash/sweat TETRACYCLINE HCL (BULK) 08/22/2015 4 - Hives Comments: blisters VERAPAMIL 07/13/2021 5 - Intolerance Comments: Short of breath, fatigue, indigestion, rash Date Reviewed: 08/03/2022 Reviewed by: Vianney Blankenship LPN - Fully Assessed Reason for Visit: Coldfusion - Other [3602] Cmt: I called Dr Jacob's office and let them know that Dr Schmidt recommends Lisandra see GI Specialist. Prescriptions as of 08/27/2022 - losartan (COZAAR) 100 mg tablet Take 1 tablet by mouth once daily. - hydroCHLOROthiazide (HYDRODIURIL, ESIDRIX) 25 mg tablet Take 1 tablet by mouth once daily. - meloxicam (MOBIC) 15 mg tablet Take 1 tablet by mouth once daily. - atorvastatin (LIPITOR) 80 mg tablet Take 1 tablet by mouth once daily. - amLODIPine (NORVASC) 10 mg tablet Take 10 mg by mouth once daily. Going to double check dosage. - metFORMIN ER (FORTAMET) 500 mg 24 hr tablet Take 1 tablet by mouth daily with breakfast. May substitute - L. acidophilus-L. rhamnosus 15 billion cell cap Take 1 capsule by mouth once daily. FLORAJEN WOMEN. If on antibiotic, take at least 1-2 hours before or after antibiotic. KEEP REFRIGERATED - atenolol (TENORMIN) 50 mg tablet Take 50 mg by mouth once daily. - neomycin/polymyxin B/dexametha (ZDAEVOLU-HJIJZURWR-DE XAMETH OPHTHALMIC) Use in eyes as needed. - Cholecalciferol, Vitamin D3, 50 mcg (2,000 unit) cap Take 50 capsules by mouth. - aspirin, enteric coated (ASPIRIN, ENTERIC COATED) 81 mg EC tablet Take 81 mg by mouth once daily. - Clobetasol taper - compound [facility] Clobetasol 0.07% ointment. Use to affected area twice daily x 4 weeks then at bedtime x 4 weeks then 1-2 times per week. - FOLIC ACID/MULTIVIT-MIN/LUTE IN (CENTRUM SILVER ORAL) Take by mouth once daily. - Biotin 10,000 mcg cap Take 5,000 mcg by mouth once daily. - KRILL OIL ORAL Take 800 mg by mouth once daily. 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] 02/20/2017 07/13/2021 Primary hypertension [I10] 07/13/2021 Diabetes mellitus type 1, controlled, without c*07/13/2021 07/13/2021 Family history of renal cancer [Z80.51] 07/13/2021 07/13/2021 Lichen sclerosus [L90.0] 07/13/2021 Psoriatic arthritis (HCC) [L40.50] 07/13/2021 Psoriasis [L40.9] 07/13/2021 Family history of colon cancer [Z80.0] ELVER (obstructive sleep apnea) [G47.33] TIA (transient ischemic attack) [G45.9] 07/13/2021 Controlled type 2 diabetes mellitus without com*07/13/2021 History of renal cell cancer [Z85.528] 07/13/2021 Pulmonary HTN (HCC) [I27.20] 01/18/2022 HERRON (dyspnea on exertion) [R06.09] 07/05/2022 08/01/2022 Nonobstructive atherosclerosis of coronary paige*07/05/2022 CHF (congestive heart failure) (HCC) [I50.9] 07/05/2022 Aortic valve stenosis [I35.0] 07/05/2022 Obesity, Class III, BMI >= 40 [E66.01] 07/11/2022 Subareolar duct papillomatosis, 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] 07/11/2022 07/11/2022 Abnormal thallium stress test [R94.39] 08/01/2022 Chest pain [R07.9] 08/01/2022 08/01/2022 Excessive sweating [R61] 08/01/2022 Fatigue [R53.83] 08/01/2022 08/01/2022 Hyperlipidemia [E78.5] 08/01/2022 Localized edema [R60.0] 01/08/2022 08/01/2022 Pounding heartbeat [R00.2] 08/01/2022 08/01/2022 Encounter Status:Closed by KATARINA WICK on 08/27/22 [facility] Comprehensive metabolic 2000 panelon 07-05-2022 Albumin [Mass/Vol] 4.9 g/dL 3.9 - 4.9 g/dL [facility] ALP [Catalytic activity/Vol] 121 U/L 34 - 123 U/L [facility] ALT [Catalytic activity/Vol] 43 U/L High 7 - 38 U/L [facility] Anion gap [Moles/Vol] 11 mmol/L 9 - 18 mmol/L [facility] AST [Catalytic activity/Vol] 39 U/L High 13 - 35 U/L [facility] Bilirubin [Mass/Vol] 0.4 mg/dL 0.2 - 1.3 mg/dL [facility] Calcium [Mass/Vol] 10.4 mg/dL High 8.5 - 10.2 mg/dL [facility] Chloride [Moles/Vol] 102 mmol/L 97 - 105 mmol/L [facility] CO2 [Moles/Vol] 28 mmol/L 22 - 30 mmol/L [facility] Creatinine [Mass/Vol] 0.97 mg/dL High 0.58 - 0.96 mg/dL [facility] Estimated Glomerular Filtration Rate 64 mL/min/1.73m >=60 mL/min/1.73m [facility] Glucose [Mass/Vol] 154 mg/dL High 74 - 99 mg/dL [facility] Potassium [Moles/Vol] 4.3 mmol/L 3.7 - 5.1 mmol /L [facility] Protein [Mass/Vol] 7.6 g/dL 6.3 - 8.0 g/dL [facility] Sodium [Moles/Vol] 141 mmol/L 136 - 144 mmol/L [facility] Urea nitrogen [Mass/Vol] 27 mg/dL High 7 - 21 mg/dL [facility] No Panel Informationon 06-19 [facility] BREAST BIOPSY LEFT (POC) SURG USE ONLYon 06-19-2022 [facility] NIC DIAGNOSTIC LTon 06-05-20 22 [facility] BREAST LTD LTon 2 [facility] No Panel Information [facility] Vital Signs Date Time Vital Sign Value Performing Clinician Facility 03-16-2025 11:24-0400 Body height 167.6 cm Evelyn Rodriguez APRN.CNP Work Phone: [facility] 03-16-2025 11:24-0400 Body mass index (BMI) [Ratio] 44.71 kg/m2 Evelyn Rodriguez APRN.CNP Work Phone: [facility] 03-16-2025 11:24-0400 Body temperature 97.11 [degF] Evelyn Fabio HIGHW[address] TECHNICIAN.BEHAVIORAL CONSULTANT Work Phone: [facility] 03-16-2025 11:24-0400 Body weight 125.65 [address] Fabio [address] TECHNICIAN.BEHAVIORAL CONSULTANT Work Phone: [facility] 03-16-2025 11:24-0400 Diastolic blood pressure 72 mm[Hg] Evelyn Fabio HIGHW[address] TECHNICIAN.BEHAVIORAL CONSULTANT Work Phone: [facility] 03-16-2025 11:24-0400 Heart rate 68 /min Evelyn Fabio [address]IGHW[address] TECHNICIAN.BEHAVIORAL CONSULTANT Work Phone: [facility] 03-16-2025 11:24-0400 Respiratory rate 20 /min Evelyn Fabio [address]HW[address] TECHNICIAN.BEHAVIORAL CONSULTANT Work Phone: [facility] 03-16-2025 11:24-0400 SaO2% (BldA) [Mass fraction] 97 % Evelyn Fabio [address]IGHW[address] TECHNICIAN.BEHAVIORAL CONSULTANT Work Phone: [facility] 03-16-2025 11:24-0400 Systolic blood pressure 126 mm[Hg] Evelyn Fabio [address]IGHW[address] TECHNICIAN.BEHAVIORAL CONSULTANT Work Phone: [facility] 03-03-2025 09:37-0400 Body height 167 cm Pedro Jacob MD Work Phone: [facility] 03-03-2025 09:37-0400 Body mass index (BMI) [Ratio] 45.05 kg/m2 Pedro Jacob MD Work Phone: [facility] 03-03-2025 09:37-0400 Body weight 125.65 kg Pedro Jacob MD Work Phone: [facility] 03-03-2025 09:37-0400 Diastolic blood pressure 72 mm[Hg] Pedro Jacob MD Work Phone: [facility] 03-03-2025 09:37-0400 Heart rate 63 /min Pedro Jacob MD Work Phone: [facility] 03-03-2025 09:37-0400 SaO2% (BldA) [Mass fraction] 96 % Pedro Jacob MD Work Phone: [facility] 03-03-2025 09:37-0400 Systolic blood pressure 132 mm[Hg] Pedro Jacob MD Work Phone: [facility] 02-23-2025 09:03-0400 Body height 167.6 cm Chema Templeton MD Work Phone: [facility] Comment on above: verbal 02-23-2025 09:03-0400 Body mass index (BMI) [Ratio] 44.87 kg/m2 Chema Templeton MD Work Phone: [facility] 02-23-2025 09:03-0400 Body temperature 96.91 [degF] Chema Templeton MD Work Phone: [facility] 02-23-2025 09:03-0400 Body weight 126.1 kg Chema Templeton MD Work Phone: [facility] 02-23-2025 09:03-0400 Diastolic blood pressure 74 mm[Hg] Chema Templeton MD Work Phone: [facility] 02-23-2025 09:03-0400 Heart rate 66 /min Chema Templeton MD Work Phone: [facility] 02-23-2025 09:03-0400 Respiratory rate 18 /min Chema Templeton MD Work Phone: [facility] 02-23-2025 09:03-0400 SaO2% (BldA) [Mass fraction] 95 % Chema Templeton MD Work Phone: [facility] 02-23-2025 09:03-0400 Systolic blood pressure 120 mm[Hg] Chema Templeton MD Work Phone: [facility] 08-19-2024 10:14-0500 Body mass index (BMI) [Ratio] 45.54 kg/m2 Pedro Jacob MD Work Phone: [facility] 08-19-2024 10:14-0500 Body weight 126.1 kg Pedro Jacob MD Work Phone: [facility] 08-19-2024 10:14-0500 Diastolic blood pressure 74 mm[Hg] Pedro Jacob MD Work Phone: [facility] 08-19-2024 10:14-0500 Heart rate 71 /min Pedro Jacob MD Work Phone: [facility] 08-19-2024 10:14-0500 SaO2% (BldA) [Mass fraction] 96 % Pedro Jacob MD Work Phone: [facility] 08-19-2024 10:14-0500 Systolic blood pressure 122 mm[Hg] Pedro Jacob MD Work Phone: [facility] 07-31-2024 10:37-0500 Body mass index (BMI) [Ratio] 44.89 kg/m2 Lindsey Traylor APRN.BEHAVIORAL CONSULTANT Work Phone: [facility] 07-31-2024 10:37-0500 Body weight 124.29 kg Lindsey Traylor APRN.BEHAVIORAL CONSULTANT Work Phone: [facility] 07-31-2024 10:37-0500 Diastolic blood pressure 82 mm[Hg] Lindsey Traylor APRN.BEHAVIORAL CONSULTANT Work Phone: [facility] 07-31-2024 10:37-0500 Systolic blood pressure 136 mm[Hg] Lindsey Traylor APRN.BEHAVIORAL CONSULTANT Work Phone: [facility] 07-02-2024 10:12-0400 Body height 166.4 cm Olga Valdovinos APRN.BEHAVIORAL CONSULTANT Work Phone: [facility] 07-02-2024 10:12-0400 Body mass index (BMI) [Ratio] 44.89 kg/m2 Olga Valdovinos APRN.BEHAVIORAL CONSULTANT Work Phone: [facility] 07-02-2024 10:12-0400 Body temperature 97.2 [degF] Olga Valdovinos APRN.BEHAVIORAL CONSULTANT Work Phone: [facility] 07-02-2024 10:12-0400 Body weight 124.3 kg Olga Valdovinos APRN.BEHAVIORAL CONSULTANT Work Phone: [facility] 07-02-2024 10:12-0400 Diastolic blood pressure 58 mm[Hg] Olga Valdovinos APRN.BEHAVIORAL CONSULTANT Work Phone: [facility] 07-02-2024 10:12-0400 Heart rate 56 /min Olga Valdovinos APRN.BEHAVIORAL CONSULTANT Work Phone: [facility] 07-02-2024 10:12-0400 SaO2% (BldA) [Mass fraction] 97 % Olga Valdovinos APRN.BEHAVIORAL CONSULTANT Work Phone: [facility] 07-02-2024 10:12-0400 Systolic blood pressure 120 mm[Hg] Olga Valdovinos APRN.BEHAVIORAL CONSULTANT Work Phone: [facility] 06-23-2024 09:57-0400 Body mass index (BMI) [Ratio] 44.41 kg/m2 Lindsey Traylor APRN.BEHAVIORAL CONSULTANT Work Phone: [facility] 06-23-2024 09:57-0400 Body weight 122.92 kg Lindsey Traylor APRN.BEHAVIORAL CONSULTANT Work Phone: [facility] 06-23-2024 09:57-0400 Diastolic blood pressure 80 mm[Hg] Lindsey Traylor APRN.BEHAVIORAL CONSULTANT Work Phone: [facility] 06-23-2024 09:57-0400 Systolic blood pressure 130 mm[Hg] Lindsey Traylor APRN.BEHAVIORAL CONSULTANT Work Phone: [facility] 02-14-2024 09:56-0400 Body mass index (BMI) [Ratio] 43.1 kg/m2 Pedro Jacob MD Work Phone: [facility] 02-14-2024 09:56-0400 Body weight 119.3 kg Pedro Jacob MD Work Phone: [facility] 02-14-2024 09:56-0400 Diastolic blood pressure 82 mm[Hg] Pedro Jacob MD Work Phone: [facility] 02-14-2024 09:56-0400 Heart rate 56 /min Pedro Jacob MD Work Phone: [facility] 02-14-2024 09:56-0400 SaO2% (BldA) [Mass fraction] 95 % Pedro Jacob MD Work Phone: [facility] 02-14-2024 09:56-0400 Systolic blood pressure 126 mm[Hg] Pedro Jacob MD Work Phone: [facility] 12-26-2023 10:56-0400 Body height 166.[address] TECHNICIAN.BEHAVIORAL CONSULTANT Work Phone: [facility] 12-26-2023 10:56-0400 Body mass index (BMI) [Ratio] 42.7 kg/m2 Olga Bonifacio [address]HW[address] TECHNICIAN.BEHAVIORAL CONSULTANT Work Phone: [facility] 12-26-2023 10:56-0400 Body temperature 97.7 [degF] Olga Bonifacio [address]IGHW[address] TECHNICIAN.BEHAVIORAL CONSULTANT Work Phone: [facility] 12-26-2023 10:56-0400 Body weight 118.[address] TECHNICIAN.BEHAVIORAL CONSULTANT Work Phone: [facility] 12-26-2023 10:56-0400 Diastolic blood pressure 60 mm[Hg] Olga Bonifacio [address]IGHW[address] TECHNICIAN.BEHAVIORAL CONSULTANT Work Phone: [facility] 12-26-2023 10:56-0400 Heart rate 61 /min Olga Bonifacio [address]HW[address] TECHNICIAN.BEHAVIORAL CONSULTANT Work Phone: [facility] 12-26-2023 10:56-0400 SaO2% (BldA) [Mass fraction] 96 % Olga Bonifacio [address]HW[address] TECHNICIAN.BEHAVIORAL CONSULTANT Work Phone: [facility] 12-26-2023 10:56-0400 Systolic blood pressure 131 mm[Hg] Olga Bonifacio [address]HW[address] TECHNICIAN.BEHAVIORAL CONSULTANT Work Phone: [facility] 08-02-2023 08:46-0500 Body weight 113.85 kg Pedro Jacob MD Work Phone: [facility] 08-02-2023 08:46-0500 Diastolic blood pressure 72 mm[Hg] Pedro Jacob MD Work Phone: [facility] 08-02-2023 08:46-0500 Heart rate 55 /min Pedro Jacob MD Work Phone: [facility] 08-02-2023 08:46-0500 SaO2% (BldA) [Mass fraction] 95 % Pedro Jacob MD Work Phone: [facility] 08-02-2023 08:46-0500 Systolic blood pressure 122 mm[Hg] Pedro Jacob MD Work Phone: [facility] 06-21-2023 11:01-0400 Body height 166.4 [address] TECHNICIAN.BEHAVIORAL CONSULTANT Work Phone: [facility] 06-21-2023 11:01-0400 Body weight 112.15 [address] Bon[address] TECHNICIAN.BEHAVIORAL CONSULTANT Work Phone: [facility] 06-21-2023 11:01-0400 Diastolic blood pressure 73 mm[Hg] Olga Bonifacio [address]HW[address] TECHNICIAN.BEHAVIORAL CONSULTANT Work Phone: [facility] 06-21-2023 11:01-0400 Heart rate 81 /min Olga Bonifacio [address] TECHNICIAN.BEHAVIORAL CONSULTANT Work Phone: [facility] 06-21-2023 11:01-0400 Respiratory rate 16 /min Olga Bonifacio [address] TECHNICIAN.BEHAVIORAL CONSULTANT Work Phone: [facility] 06-21-2023 11:01-0400 Systolic blood pressure 114 mm[Hg] Olga Bonifacio [address] TECHNICIAN.BEHAVIORAL CONSULTANT Work Phone: [facility] 01-21-2023 10:44-0400 Body height 166.4 cm Pedro Jacob MD Work Phone: [facility] 01-21-2023 10:44-0400 Body weight 119.3 kg Pedro Jacob MD Work Phone: [facility] 01-21-2023 10:44-0400 Diastolic blood pressure 76 mm[Hg] Pedro Jacob MD Work Phone: [facility] 01-21-2023 10:44-0400 Heart rate 57 /min Pedro Jacob MD Work Phone: [facility] 01-21-2023 10:44-0400 SaO2% (BldA) [Mass fraction] 97 % Pedro Jacob MD Work Phone: [facility] 01-21-2023 10:44-0400 Systolic blood pressure 100 mm[Hg] Pedro Jacob MD Work Phone: [facility] 11-02-2022 14:43-0500 Body height 166.4 [address] TECHNICIAN.BEHAVIORAL CONSULTANT Work Phone: [facility] 11-02-2022 14:43-0500 Body temperature 97.9 [degF] Olga Bonifacio [address]HW[address] TECHNICIAN.BEHAVIORAL CONSULTANT Work Phone: [facility] 11-02-2022 14:43-0500 Body weight 125.47 [address] Bonifacio [address] TECHNICIAN.BEHAVIORAL CONSULTANT Work Phone: [facility] 11-02-2022 14:43-0500 Diastolic blood pressure 57 mm[Hg] Olga Valdovinos [address]HW[address] TECHNICIAN.BEHAVIORAL CONSULTANT Work Phone: [facility] 11-02-2022 14:43-0500 Heart rate 73 /min Olga Bonifacio [address]HW[address] TECHNICIAN.BEHAVIORAL CONSULTANT Work Phone: [facility] 11-02-2022 14:43-0500 SaO2% (BldA) [Mass fraction] 96 % Olga Bonifacio [address]HW[address] TECHNICIAN.BEHAVIORAL CONSULTANT Work Phone: [facility] 11-02-2022 14:43-0500 Systolic blood pressure 142 mm[Hg] Olga Valdovinos [address]HW[address] TECHNICIAN.BEHAVIORAL CONSULTANT Work Phone: [facility] 10-11-2022 09:29-0500 Body weight 126.46 kg Lindsey Traylor APRN.BEHAVIORAL CONSULTANT Work Phone: [facility] 10-11-2022 09:29-0500 Diastolic blood pressure 76 mm[Hg] Lindsey Traylor APRN.BEHAVIORAL CONSULTANT Work Phone: [facility] 10-11-2022 09:29-0500 Systolic blood pressure 132 mm[Hg] Lindsey Traylor APRN.BEHAVIORAL CONSULTANT Work Phone: [facility] 08-03-2022 14:26-0500 Body weight 123.38 kg Pedro Jaocb MD Work Phone: [facility] 08-03-2022 14:26-0500 Diastolic blood pressure 72 mm[Hg] Pedro Jacob MD Work Phone: [facility] 08-03-2022 14:26-0500 Heart rate 81 /min Pedro Jacob MD Work Phone: [facility] 08-03-2022 14:26-0500 SaO2% (BldA) [Mass fraction] 97 % Pedro Jacob MD Work Phone: [facility] 08-03-2022 14:26-0500 Systolic blood pressure 132 mm[Hg] Pedro Jacob MD Work Phone: [facility] 08-01-2022 10:02-0500 Body height 167.6 cm Pedro Jacob MD Work Phone: [facility] 08-01-2022 10:02-0500 Body weight 124.56 kg Pedro Jacob MD Work Phone: [facility] 08-01-2022 10:02-0500 Diastolic blood pressure 82 mm[Hg] Pedro Jacob MD Work Phone: [facility] 08-01-2022 10:02-0500 Heart rate 65 /min Pedro Jacob MD Work Phone: [facility] 08-01-2022 10:02-0500 SaO2% (BldA) [Mass fraction] 96 % Pedro Jacob MD Work Phone: [facility] 08-01-2022 10:02-0500 Systolic blood pressure 130 mm[Hg] Pedro Jacob MD Work Phone: [facility] 07-23-2022 14:20-0500 Body height 167.6 cm Chema Templeton MD Work Phone: [facility] 07-23-2022 14:20-0500 Body temperature 97.59 [degF] Chema Templeton MD Work Phone: [facility] 07-23-2022 14:20-0500 Body weight 125.01 kg Chema Templeton MD Work Phone: [facility] 07-23-2022 14:20-0500 Diastolic blood pressure 60 mm[Hg] Chema Templeton MD Work Phone: [facility] 07-23-2022 14:20-0500 Heart rate 74 /min Chema Templeton MD Work Phone: [facility] 07-23-2022 14:20-0500 Respiratory rate 16 /min Chema Templeton MD Work Phone: [facility] 07-23-2022 14:20-0500 SaO2% (BldA) [Mass fraction] 97 % Chema Templeton MD Work Phone: [facility] 07-23-2022 14:20-0500 Systolic blood pressure 124 mm[Hg] Chema Templeton MD Work Phone: [facility] 07-05-2022 11:23-0400 Body height 167.6 cm Pacc 1 Work Phone: [facility] 07-05-2022 11:23-0400 Body temperature 97.5 [degF] Pacc 1 Work Phone: [facility] 07-05-2022 11:23-0400 Body weight 124.29 kg Pacc 1 Work Phone: [facility] 07-05-2022 11:23-0400 Diastolic blood pressure 71 mm[Hg] Pacc 1 Work Phone: [facility] 07-05-2022 11:23-0400 Heart rate 61 /min Pacc 1 Work Phone: [facility] 07-05-2022 11:23-0400 Respiratory rate 16 /min Pacc 1 Work Phone: [facility] 07-05-2022 11:23-0400 SaO2% (BldA) [Mass fraction] 98 % Pacc 1 Work Phone: [facility] 07-05-2022 11:23-0400 Systolic blood pressure 140 mm[Hg] Pacc 1 Work Phone: [facility] 06-26-2022 09:24-0400 Body temperature 97.5 [degF] Chema Templeton MD Work Phone: [facility] 06-26-2022 09:24-0400 Diastolic blood pressure 72 mm[Hg] Chema Templeton MD Work Phone: [facility] 06-26-2022 09:24-0400 Heart rate 67 /min Chema Templeton MD Work Phone: [facility] 06-26-2022 09:24-0400 SaO2% (BldA) [Mass fraction] 98 % Chema Templeton MD Work Phone: [facility] 06-26-2022 09:24-0400 Systolic blood pressure 124 mm[Hg] Chema Templeton MD Work Phone: [facility] 06-12-2022 08:17-0400 Body temperature 97.39 [degF] Chema Templeton MD Work Phone: [facility] 06-12-2022 08:17-0400 Body weight 123.29 kg Chema Templeton MD Work Phone: [facility] 06-12-2022 08:17-0400 Diastolic blood pressure 77 mm[Hg] Chema Templeton MD Work Phone: [facility] 06-12-2022 08:17-0400 Heart rate 81 /min Chema Templeton MD Work Phone: [facility] 06-12-2022 08:17-0400 SaO2% (BldA) [Mass fraction] 95 % Chema Templeotn MD Work Phone: [facility] 06-12-2022 08:17-0400 Systolic blood pressure 122 mm[Hg] Chema Templeton MD Work Phone: [facility] 02-14-2022 12:30-0400 Body height 172.[address] Kit Easton Work Phone: [facility] Work Phone: 02-14-2022 12:30-0400 Body weight 118.[address] iKt Easton Work Phone: [facility] Work Phone: 02-14-2022 12:30-0400 Heart rate 68 /min Dr. Kit Easton Work Phone: [facility] Work Phone: 02-14-2022 12:30-0400 SaO2% (BldA) [Mass fraction] 96 % Dr. Kit Easton Work Phone: [facility] Work Phone: 01-18-2022 09:33-0400 Body weight 121.11 kg Pedro Jacob MD Work Phone: [facility] 01-18-2022 09:33-0400 Diastolic blood pressure 72 mm[Hg] Pedro Jacob MD Work Phone: [facility] 01-18-2022 09:33-0400 Heart rate 64 /min Pedro Jacob MD Work Phone: [facility] 01-18-2022 09:33-0400 Systolic blood pressure 126 mm[Hg] Pedro Jacob MD Work Phone: [facility] 01-01-2022 15:05-0400 Body height 165.[address] Kit Easton Work Phone: [facility] Work Phone: 01-01-2022 15:05-0400 Body mass index (BMI) [Ratio] 44.4 kg/m2 Dr. Kit Easton Work Phone: [facility] Work Phone: 01-01-2022 15:05-0400 Body temperature 98.2 [degF] Dr. Kit Easton Work Phone: [facility] Work Phone: 01-01-2022 15:05-0400 Body weight 121.[address] Kit Easton Work Phone: [facility] Work Phone: 01-01-2022 15:05-0400 Diastolic blood pressure 64 mm[Hg] Dr. Kit Easton Work Phone: [facility] Work Phone: 01-01-2022 15:05-0400 Heart rate 67 /min Dr. Kit Easton Work Phone: [facility] Work Phone: 01-01-2022 15:05-0400 Respiratory rate 19 /min Dr. Kit Easton Work Phone: [facility] Work Phone: 01-01-2022 15:05-0400 SaO2% (BldA) [Mass fraction] 95 % Dr. Kit Easton Work Phone: [facility] Work Phone: 01-01-2022 15:05-0400 Systolic blood pressure 140 mm[Hg] Dr. Kit Easton Work Phone: [facility] Work Phone: 11-23-2021 08:03-0500 Body height 165.[address] Kit Easton Work Phone: [facility] Work Phone: 11-23-2021 08:03-0500 Body mass index (BMI) [Ratio] 46.5 kg/m2 Dr. Kit Easton Work Phone: [facility] Work Phone: 11-23-2021 08:03-0500 Body weight [address] Kit Easton Work Phone: [facility] Work Phone: 11-23-2021 08:03-0500 Diastolic blood pressure 75 mm[Hg] Dr. Kit Easton Work Phone: [facility] Work Phone: 11-23-2021 08:03-0500 Heart rate 59 /min Dr. Kit Easton Work Phone: [facility] Work Phone: 11-23-2021 08:03-0500 Respiratory rate 20 /min Dr. Kit Easton Work Phone: [facility] Work Phone: 11-23-2021 08:03-0500 SaO2% (BldA) [Mass fraction] 94 % Dr. Kit Easton Work Phone: [facility] Work Phone: 11-23-2021 08:03-0500 Systolic blood pressure 132 mm[Hg] Dr. Kit Easton Work Phone: [facility] Work Phone: 08-24-2021 08:53-0500 Body mass index (BMI) [Ratio] 45.4 kg/m2 Dr. Kit Easton Work Phone: [facility] Work Phone: 08-24-2021 08:53-0500 Body weight 123.[address] Kit Easton Work Phone: [facility] Work Phone: 08-24-2021 08:53-0500 Diastolic blood pressure 81 mm[Hg] Dr. Kit Easton Work Phone: [facility] Work Phone: 08-24-2021 08:53-0500 Heart rate 62 /min Dr. Kit Easton Work Phone: [facility] Work Phone: 08-24-2021 08:53-0500 Respiratory rate 18 /min Dr. Kit Easton Work Phone: [facility] Work Phone: 08-24-2021 08:53-0500 SaO2% (BldA) [Mass fraction] 97 % Dr. Kit Easton Work Phone: [facility] Work Phone: 08-24-2021 08:53-0500 Systolic blood pressure 159 mm[Hg] Dr. Kit Easton Work Phone: [facility] Work Phone: Encounters Encounter Date Encounter Type Care Provider Facility Start: 04-15-2025 ambulatory [facility] Facility:[facility] Start: 03-30-2025 End: 03-30-2025 Patient encounter procedure Chema Templeton MD Work Phone: General Surgery Comment on above: Abnormal mammogram ( Primary Dx) Start: 03-30-2025 End: 03-30-2025 ambulatory CHEMA TEMPLETON Facility:[facility] Start: 03-24-2025 End: 03-24-2025 Telephone encounter Maye Perkins RN Mammography Comment on above: Results Start: 03-22-2025 Non-patient / Non-visit Renetta ELIZONDO -[facility] Work Phone: Start: 03-22-2025 ambulatory [facility] Facility:[facility] Start: 03-22-2025 Non-patient / Non-visit [facility]. Frias [facility] Start: 03-22-2025 End: 03-22-[address] Pedro Jacob MD Work Phone: -Cardiovascular Services Start: 03-22-2025 End: 03-22-2025 Patient encounter procedure Renetta ELIZONDO -Cardiovascular Services Work Phone: Start: 03-22-2025 End: 03-22-2025 ambulatory [facility] Facility:[facility] Start: 03-18-2025 End: 03-18-2025 ambulatory [facility] Facility:[facility] Start: 03-17-2025 ambulatory [facility] Facility :[facility] Start: 03-17-2025 End: 03-17-2025 Subsequent hospital visit by physician Procedure Mammo [facility] Work Phone: Mammography Comment on above: Abnormal mammogram [ R92.8] Start: 03-16-2025 End: 03-16-2025 Patient encounter procedure Evelyn Rodriguez MELANIE Work Phone: General Surgery Comment on above: Dysphagia, unspecifi ed type (Primary Dx); History of colonic polyps; Family history of colon cancer; Abnormal stool caliber; Bloating; Belching; Screen for colon cancer Start: 03-16-2025 End: 03-16-2025 ambulatory PEDRO JCAOB Facility:[facility] Start: 03-15-2025 End: 03-15-2025 ambulatory Pedro Jacob MD Work Phone: [facility] Comment on above: cognitive testing Start: 03-15-2025 End: 03-15-2025 E-mail encounter from caregiver Pedro Jacob MD Work Phone: [facility] Start: 03-12-2025 End: 03-15-2025 ambulatory Pedro Jacob MD Work Phone: [facility] Comment on above: medication Start: 03-03-2025 End: 03-03-2025 Subsequent hospital visit by physician Nayely [facility] Work Phone: Radiology Comment on above: SOB (shortness of br eath) [R06.02] Start: 03-03-2025 End: 03-03-2025 ambulatory PEDRO JACOB Facility:[facility] Start: 03-03-2025 End: 03-03-2025 ambulatory PEDRO JACOB Facility:[facility] Start: 03-03-2025 End: 03-03-2025 Patient encounter procedure Pedro Jacob MD Work Phone: [facility] Comment on above: Medicare annual well ness visit, subsequent (Primary Dx); Encounter for screening examination for other mental health and behavioral disorders; Morbid (severe) obesity due to excess calories (HCC); Psoriatic arthritis (HCC); Congestive heart failure, unspecified HF chronicity, unspecified heart failure type (HCC); Obesity, Class III, BMI >= 40; Primary hypertension; Pulmonary HTN (HCC); Hyperlipidemia, unspecified hyperlipidemia type; ELVER (obstructive sleep apnea); Metabolic dysfunction-associated steatotic liver disease (MASLD); Controlled type 2 diabetes mellitus without complication, without long-term current use of insulin (HCC); SOB (shortness of breath); Screening for depression; History of colonic polyps; Family history of colon cancer; Abnormal stool caliber; Encounter for immunization Start: 02-23-2025 End: 02-23-2025 Patient encounter procedure Chema Templeton MD Work Phone: General Surgery Comment on above: Abnormal mammogram ( Primary Dx) Start: 02-23-2025 End: 02-23-2025 ambulatory CHEMA TEMPLETON Facility:[facility] Start: 02-17-2025 ambulatory PEDRO JACOB Facility :[facility] Start: 02-17-2025 End: 02-17-2025 Subsequent hospital visit by physician [facility] Work Phone: Radiology Comment on above: Abnormal mammogram [ R92.8] Start: 01-11-2025 End: 01-11-2025 Telephone encounter Pedro Jacob MD Work Phone: [facility] Comment on above: Results Start: 01-07-2025 End: 01-07-2025 ambulatory PEDRO JACOB Facility:[facility] Start: 01-03-2025 End: 01-05-2025 Refill Anika Bullock APRN.CNP Work Phone: [facility] Comment on above: Refill Request Start: 10-20-2024 End: 10-20-2024 ambulatory Pedro Jacob Facility:[facility] Start: 10-12-2024 End: 10-13-2024 Refill Pedro Jacob MD Work Phone: [facility] Comment on above: Refill Request Start: 09-25-2024 End: 09-25-2024 ambulatory Pedro Jacob MD Work Phone: [facility] [place] Comment on above: Yeast infection Start: 08-24-2024 End: 08-24-2024 Telephone encounter Pedro Jacob MD Work Phone: [facility] Comment on above: Results Start: 08-19-2024 End: 08-19-2024 ambulatory PEDRO JACOB Facility:[facility] Start: 08-19-2024 End: 08-19-2024 Patient encounter procedure Pedro Jacob MD Work Phone: [facility] Comment on above: Primary hypertension (Primary Dx); Controlled type 2 diabetes mellitus without complication, without long-term current use of insulin (HCC); Nonobstructive atherosclerosis of coronary artery; Pulmonary HTN (HCC); Hyperlipidemia, unspecified hyperlipidemia type; ELVER (obstructive sleep apnea); History of renal cell cancer; Psoriatic arthritis (HCC); TIA (transient ischemic attack); Family history of colon cancer; Metabolic dysfunction-associated steatotic liver disease (MASLD); Encounter for screening mammogram for malignant neoplasm of breast Start: 08-03-2024 End: 08-04-2024 ambulatory Lindsey Traylor APRN.BEHAVIORAL CONSULTANT Work Phone: OB/Gynecology Comment on above: Estradiol Start: 07-31-2024 End: 07-31-2024 ambulatory LINDSEY TRAYLOR Facility:[facility] Start: 07-31-2024 End: 07-31-2024 Patient encounter procedure Lindsey Traylor APRN.BEHAVIORAL CONSULTANT Work Phone: OB/Gynecology Comment on above: Chronic vulvitis (Pr imary Dx); Postmenopausal atrophic vaginitis; Lichen sclerosus Start: 07-16-2024 End: 07-16-2024 Refill Pedro Jacob MD Work Phone: [facility] Comment on above: Refill Request Start: 07-02-2024 End: 07-02-2024 Patient encounter procedure Olga Valdovinos HIGHWAY TECHNICIAN.BEHAVIORAL CONSULTANT Work Phone: Gastroenterology Comment on above: Hepatic fibrosis, ad vanced fibrosis (Primary Dx); Diabetes mellitus due to underlying condition without complication, without long-term current use of insulin (HCC) Start: 07-02-2024 End: 07-02-2024 ambulatory OLGA VALDOVINOS Facility:[facility] Start: 07-02-2024 End: 07-02-2024 Subsequent hospital visit by physician Main A21 6 Work Phone: Radiology Comment on above: Hepatic steatosis [K 76.0] Start: 06-25-2024 End: 06-25-2024 ambulatory OLGA BRUCER Facility:[facility] Start: 06-24-2024 End: 06-24-2024 ambulatory Lindsey Traylor APRN.CNP Work Phone: OB/Gynecology Comment on above: Test results Start: 06-24-2024 End: 06-24-2024 Telephone encounter Lindsey Traylor APRN.BEHAVIORAL CONSULTANT Work Phone: OB/Gynecology Comment on above: Patient Question Start: 06-23-2024 End: 06-23-2024 ambulatory SELF Facility:[facility] Start: 06-23-2024 End: 06-23-2024 Patient encounter procedure Lindsey Traylor APRN.BEHAVIORAL CONSULTANT Work Phone: OB/Gynecology Comment on above: Vaginal irritation ( Primary Dx); Intertrigo of genital labia; Lichen sclerosus Start: 04-26-2024 Refill Pedro Jacob MD Work Phone: [facility] Comment on above: Refill Request Start: 02-14-2024 End: 02-14-2024 Patient encounter procedure Pedro Jacob MD Work Phone: [facility] Comment on above: Primary hypertension (Primary Dx); Controlled type 2 diabetes mellitus without complication, without long-term current use of insulin (HCC); Pulmonary HTN (HCC); Nonobstructive atherosclerosis of coronary artery; Congestive heart failure, unspecified HF chronicity, unspecified heart failure type (HCC); ELVER (obstructive sleep apnea); History of renal cell cancer; Psoriatic arthritis (HCC); TIA (transient ischemic attack); Decreased bone density; Fatigue, unspecified type; Bruising Start: 01-27-2024 Refill Brittany nova MD Work Phone: [facility] Comment on above: Refill Request Medicine atenolol 50 mg Start: 01-08-2024 Documentation procedure Mammog jorge a Coordinator [facility] Department Start: 01-08-2024 Letter encounter Mammography Coordinator [facility] Start: 01-07-2024 End: 01-07-2024 Subsequent hospital visit by physician Screen Mammo [facility] Comment on above: Encounter for screen ing mammogram for malignant neoplasm of breast [Z12.31] Start: 12-26-2023 End: 12-26-2023 ambulatory Hepatology A5 Work Phone: Gastroenterology Comment on above: Arrived Start: 12-26-2023 End: 12-26-2023 Patient encounter procedure Hepatology Procedures A5 Work Phone: [facility] Comment on above: Hepatic steatosis (P rimary Dx); Diabetes mellitus due to underlying condition without complication, 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 (HCC); Abnormal findings on diagnostic imaging of liver and biliary tract Start: 12-26-2023 End: 12-26-2023 Subsequent hospital visit by physician Main A21 2 Radiology Comment on above: Hepatic steatosis [K 76.0] Start: 12-06-2023 ambulatory Pedro Jacob MD Work Phone: [facility] Comment on above: Mammogram Start: 08-02-2023 End: 08-02-2023 Patient encounter procedure Pedro Jacob MD Work Phone: [facility] Comment on above: Primary hypertension (Primary Dx); Pulmonary HTN (HCC); Congestive heart failure, unspecified HF chronicity, unspecified heart failure type (HCC); Nonobstructive atherosclerosis of coronary artery; ELVER (obstructive sleep apnea); Hyperlipidemia, unspecified hyperlipidemia type; Controlled type 2 diabetes mellitus without complication, without long-term current use of insulin (HCC); Psoriatic arthritis (HCC); TIA (transient ischemic attack); Obesity, Class III, BMI 40-49.9 (morbid obesity) (HCC); Fatty liver Start: 08-01-2023 Refill Pedro Jacob MD Work Phone: [facility] Comment on above: Refill Request Start: 06-26-2023 End: 06-26-2023 Subsequent hospital visit by physician [facility] Mob 2 Work Phone: Radiology Comment on above: Fatty liver [K76.0] Start: 06-21-2023 End: 06-21-2023 Patient encounter procedure Olga Valdovinos APRN.CNP Work Phone: Gastroenterolgy Comment on above: Hepatic steatosis (P rimary Dx); Abnormal findings on diagnostic imaging of liver and biliary tract Start: 04-23-2023 Refill Pedro Jacob MD Work Phone: [facility] Comment on above: Refill Request Start: 01-30-2023 End: 01-30-2023 Subsequent hospital visit by physician [facility] Work Phone: Radiology Comment on above: Abnormal mammogram [ R92.8] Start: 01-21-2023 End: 01-21-2023 Patient encounter procedure Pedro Jacob MD Work Phone: [facility] Comment on above: Primary hypertension (Primary Dx); Pulmonary HTN (HCC); Congestive heart failure, unspecified HF chronicity, unspecified heart failure type (HCC); Hyperlipidemia, unspecified hyperlipidemia type; Aortic valve stenosis, etiology of cardiac valve disease unspecified; History of renal cell cancer; ELVER (obstructive sleep apnea); Psoriatic arthritis (HCC); Controlled type 2 diabetes mellitus without complication, without long-term current use of insulin (HCC) Refill Request Start: 12-27-2022 ambulatory Lindsey JOHNSON RN.BEHAVIORAL CONSULTANT Work Phone: OB/Gynecology Comment on above: prescription for huan betosol Testing supplies Start: 12-27-2022 Documentation procedure Mammog jorge a Coordinator [facility] Start: 12-27-2022 Letter encounter Mammography Coordinator [facility] Department Start: 12-27-2022 Telephone encounter Pedro Jacob MD Work Phone: [facility] Comment on above: Results Start: 12-26-2022 End: 12-26-2022 Refill Pedro Jacob MD Work Phone: [facility] Comment on above: Refill Request Encounter for screen ing mammogram for breast cancer [Z12.31] Start: 12-20-2022 End: 12-20-2022 ambulatory Olga Valdovinos APRN.CNP Work Phone: Gastroenterolgy Comment on above: Fatty liver (Primary Dx); Hepatic fibrosis, advanced fibrosis Start: 12-20-2022 End: 12-20-2022 Telemedicine consultation with patient Olga Bonifacio HIGHWAY TECHNICIAN.BEHAVIORAL CONSULTANT Work Phone: [place] [id number] Start: 12-19-2022 Telephone encounter Pedro Jacob MD Work Phone: [facility] Comment on above: Orders Patient Question Start: 12-12-2022 ambulatory Pedro Jacob MD Work Phone: Internal Medicine [facility] [place] Start: 12-11-2022 End: 12-11-2022 ambulatory ZAIDA MIGUEL Facility:[facility] Start: 12-07-2022 Telephone encounter Antonio Wong RN [facility] INTERVENTIONAL RADIOLOGY Comment on above: Radiology Pre Proced ure Instructions Start: 12-04-2022 Orders Only Amy Camargo RN [facility] IN TERVENTIONAL RADIOLOGY Comment on above: Fatty liver (Primary Dx) Start: 11-26-2022 End: 11-26-2022 Subsequent hospital visit by physician Los Montez MD Work Phone: [facility] Radiology Comment on above: Fatty liver [K76.0] Start: 11-25-2022 Refill Pedro Jacob MD Work Phone: [facility] Comment on above: Refill Request Start: 11-20-2022 Telephone encounter Marilia Rivas [facility] Radiology Comment on above: Radiology Pre Proced ure Instructions Start: 11-13-2022 End: 11-13-2022 ambulatory Olgajudi Valdovinos APRN.BEHAVIORAL CONSULTANT Work Phone: Gastroenterology Comment on above: Fatty liver (Primary Dx) Start: 11-13-2022 End: 11-13-2022 Telemedicine consultation with patient Olga Valdovinos HIGHWAY TECHNICIAN.BEHAVIORAL CONSULTANT Work Phone: [facility] Start: 11-02-2022 End: 11-02-2022 Patient encounter procedure Olga Bonifacio HIGHWAY TECHNICIAN.BEHAVIORAL CONSULTANT Work Phone: Gastroenterology Comment on above: Fatty liver (Primary Dx) Start: 10-28-2022 Refill Pedro Jacob MD Work Phone: [facility] Comment on above: Refill Request Start: 10-11-2022 End: 01-26-2023 Patient encounter procedure Lindsey Traylor APRN.BEHAVIORAL CONSULTANT Work Phone: OB/Gynecology Comment on above: Lichen sclerosus (Pr imary Dx); Itching of vulva Start: 08-27-2022 Telephone encounter Mary hoffmann MD Work Phone: [facility] Comment on above: Appointment (Called to Cancel appt) Appointment [facility] - [facility] ther (I called Dr Jacob's office and let them know that Dr Schmidt recommends Lisandra see GI Specialist. ) Start: 08-17-2022 Telephone encounter Pedro Jacob MD Work Phone: [facility] Comment on above: Results Start: 08-16-2022 Telephone encounter Pedro Jacob MD Work Phone: [facility] Comment on above: Results Start: 08-03-2022 End: 08-03-2022 Patient encounter procedure Pedro Jacob MD Work Phone: [facility] Comment on above: Skin lesion (Primary Dx) Start: 08-01-2022 End: 08-01-2022 Patient encounter procedure Pedro Jacob MD Work Phone: [facility] Comment on above: Aortic valve stenosi s, etiology of cardiac valve disease unspecified (Primary Dx); Encounter for immunization; Primary hypertension; Pulmonary HTN (HCC); ELVER (obstructive sleep apnea); Controlled type 2 diabetes mellitus without complication, without long-term current use of insulin (HCC); History of renal cell cancer; Psoriasis; Psoriatic arthritis (HCC); Elevated liver enzymes; CKD (chronic kidney disease) stage 2, GFR 60-89 ml/min Start: 07-25-2022 Telephone encounter Chema mcdonald MD Work Phone: General Surgery Comment on above: Patient Question (Pa thology ) Start: 07-23-2022 End: 07-23-2022 Patient encounter procedure Chema Templeton MD Work Phone: General Surgery Comment on above: Atypical ductal hype rplasia of left breast (Primary Dx) Start: 07-17-2022 Refill Pedro Jacob MD Work Phone: [facility] Comment on above: Refill Request Start: 07-06-2022 Telephone encounter Krystal Hilario robles APRN.BEHAVIORAL CONSULTANT Work Phone: Pre Anesthesia Comment on above: Results Start: 07-05-2022 End: 07-05-2022 Admission to establishment [place] [id number] Work Phone: [facility] Start: 07-05-2022 End: 07-05-2022 ambulatory [place] [id number] Work Phone: Pre Anesthesia Comment on above: Pre-op evaluation (P rimary Dx); TIA (transient ischemic attack); ELVER (obstructive sleep apnea); HERRON (dyspnea on exertion); Nonobstructive atherosclerosis of coronary artery; Congestive heart failure, unspecified HF chronicity, unspecified heart failure type (HCC); Aortic valve stenosis, etiology of cardiac valve disease unspecified; Abnormal finding of blood chemistry, unspecified ; Controlled type 2 diabetes mellitus without complication, without long-term current use of insulin (HCC); Pulmonary HTN (HCC); Primary hypertension Start: 07-05-2022 End: 07-05-2022 Preprocedural examination done [place] [id number] Work Phone: Pre Anesthesia Start: 06-26-2022 Telephone encounter Chema mcdonald MD Work Phone: General Surgery Comment on above: 07-11-22 L / BREAST [place] Start: 06-26-2022 End: 06-26-2022 Patient encounter procedure Chema Templeton MD Work Phone: General Surgery Comment on above: Intraductal papillom a of breast, left (Primary Dx) Start: 06-19-2022 End: 06-19-2022 Subsequent hospital visit by physician Screen Mammo [facility] M[facility] Comment on above: Abnormal mammogram [ R92.8] Start: 06-19-2022 End: 06-19-2022 Patient encounter procedure Chema Templeton MD Work Phone: General Surgery Comment on above: Abnormal mammogram ( Primary Dx) Start: 06-12-2022 Telephone encounter Lindsey mcmullen APRN.CNP Work Phone: OB/Gynecology Comment on above: Refill Request Start: 06-12-2022 End: 06-12-2022 Patient encounter procedure Chema Templeton MD Work Phone: General Surgery Comment on above: Abnormal mammogram ( Primary Dx) Start: 06-05-2022 End: 06-05-2022 Subsequent hospital visit by physician Diagnostic Mammo [facility] Mammogram Comment on above: Abnormal mammogram [ R92.8] Start: 04-23-2022 ambulatory Pedro Jacob MD Work Phone: [facility] Comment on above: Mammogram Start: 02-15-2022 Non-patient / Non-visit Dr. Philippe Easton Work Phone: [facility] Start: 02-14-2022 End: 02-14-[address] Kit [facility] Start: 01-29-2022 Non-patient / Non-visit Dr. Philippe Easton Work Phone: [facility] Start: 01-29-2022 End: 01-29-[address] Kit Easton Work Phone: [facility]-Cardiovascular Services Start: 01-18-2022 End: 01-18-2022 Patient encounter procedure Pedro Jacob MD Work Phone: [facility] Comment on above: Primary hypertension (Primary Dx); Psoriatic arthritis (HCC); ELVER (obstructive sleep apnea); TIA (transient ischemic attack); Controlled type 2 diabetes mellitus without complication, without long-term current use of insulin (HCC); History of renal cell cancer; Pulmonary HTN (HCC) Start: 01-01-2022 End: 01-01-[address] Kit Easton [facility] Start: 12-12-2021 Telephone encounter Pedro Jacob MD Work Phone: [facility] Comment on above: Patient Question Start: 11-30-2021 Non-patient / Non-visit Dr. Philippe Easton Work Phone: [facility] Start: 11-30-2021 End: 11-30-[address] Kit Easton Work Phone: [facility]-Pulmonary Services/Neurology Start: 11-23-2021 End: 11-23-[address] Kit Easton Work Phone: [facility] Start: 08-24-2021 End: 08-24-[address] Kit Easton Work Phone: [facility] Procedures Date Procedure Procedure Detail Performing Clinician Start: 03-17-2025 Digital breast tomosynthesis unilateral Chema Templeton MD Work Phone: Start: 03-17-2025 Bx breast w/device 1 st lesion ultrasound guid Chema Templeton MD Work Phone: Start: 03-03-2025 Adult depression screening assessment Pedro Jacob MD Work Phone: Start: 02-17-2025 Us breast uni real t puja with image limited Pedro Jacob MD Work Phone: Start: 02-17-2025 Digital breast tomosynthesis unilateral Pedro Jacob MD Work Phone: Start: 07-02-2024 Us abdominal real ti me w/image limited Olga Valdovinos HIGHWAY TECHNICIAN.BEHAVIORAL CONSULTANT Work Phone: Start: 02-14-2024 Adult depression screening assessment Pedro Jacob MD Work Phone: Start: 12-26-2023 Liver elastography w /o imag w/i&r Thalia Mckeon HIGHWAY TECHNICIAN.BEHAVIORAL CONSULTANT Work Phone: Start: 12-26-2023 Us abdominal real ti me w/image limited Olga Valdovinos HIGHWAY TECHNICIAN.BEHAVIORAL CONSULTANT Work Phone: Start: 06-26-2023 Us abdominal real ti me w/image limited Olga Valdovinos HIGHWAY TECHNICIAN.BEHAVIORAL CONSULTANT Work Phone: Start: 01-30-2023 Us breast uni real t puja with image limited Pedro Jacob MD Work Phone: Start: 12-26-2022 NIC SCREENING W NICOLE Sarina lk Order Provider Start: 12-26-2022 Mammography Pedro Low MD Work Phone: Start: 11-02-2022 End: 11-02-2022 Liver elastography w/o imag w/i&r Olga Valdovinos HIGHWAY TECHNICIAN.BEHAVIORAL CONSULTANT Work Phone: Start: 08-01-2022 INFLUENZA SEASONAL QUADRIVALENT HIGH DOSE AGE 65+ Pedro Jacob MD Work Phone: Start: 06-19-2022 US BREAST BIOPSY LEF T (POC) SURG USE ONLY Chema Templeton MD Work Phone: Start: 06-19-2022 Diagnostic mammograp hy computer-aided detcj uni Chema Templeton MD Work Phone: Start: 06-05-2022 Us breast uni real t puja with image limited Pedro Jacob MD Work Phone: Start: 06-05-2022 Diagnostic mammograp hy computer-aided detcj uni Pedro Jacob MD Work Phone: Start: 01-18-2022 Adult depression screening assessment Pedro Jacob MD Work Phone: Start: 11-09-2021 Mammography Pedro Lwo MD Work Phone: Start: 02-25-2020 Colonoscopy Pedro Low MD Work Phone: History of cataract extraction Hx of cataract surgery Dr. Pedro Jacob MD Work Phone: Plan of Treatment Date Care Activity Detail Author Start: 07-09-2028 Urine microalbumin profile [facility] Start: 03-03-2026 Annual PCP Team Chronic Disease Visit Annual PCP Team Chronic Disease Visit [facility] [facility] Start: 03-03-2026 Anxiety Screening Anxiety Screening [facility] Start: 03-03-2026 Covid-19 Vaccine ( season) Covid-19 Vaccine ( season) [facility] Comment on above: Postponed from 01/27/2025 (Declined at t his time) Start: 03-03-2026 Depression Screening Depression Screening [facility] Start: 03-03-2026 Medicare Annual Wellness Visit Medicare Annual Wellness Visit [facility] Start: 02-23-2026 zzBP Controlled (<130/80) (Retired) zzBP Controlled (<130/80) (Retired) [facility] Start: 01-07-2026 Screening for malignant neoplasm of breast Mammogram Screening [facility] Start: 09-02-2025 Hemoglobin A1c measurement HbA1C [facility] Start: 08-19-2025 Annual PCP Team Chronic Disease Visit Annual PCP Team Chronic Disease Visit [facility] Start: 08-19-2025 BP Controlled (<130/80) BP Controlled (<130/80) [facility] Start: 08-19-2025 Diabetic foot examination Diabetic Foot Exam [facility] Start: 08-19-2025 Hepatitis B screening Urine Albumin:Creatinine Ratio [facility] Start: 08-19-2025 Hepatitis B surface antibody level LDL Cholesterol [facility] Start: 08-19-2025 RSV Vaccine (1 - Risk 60-74 years 1-dose series) RSV Vaccine (1 - Risk 60-74 years 1-dose series) [facility] Comment on above: Postponed from 2013 (Declined at t his time) Start: 07-26-2025 End: 07-26-2025 Patient encounter procedure 07/26/2025 1:30 PM EST Appointment [facility] [address] [place] [address] Unruly Jenkins MD [address] [place] [address] [facility] Start: 07-02-2025 BP Controlled (<130/80) BP Controlled (<130/80) [facility] Start: 06-10-2025 End: 06-10-2025 Patient encounter procedure 06/10/2025 12:30 PM EDT Office Visit Gastroenterolgy [address] [place] [address] Olga Valdovinos APRN.BEHAVIORAL CONSULTANT [address] [place] [address] Follow up Gastroenterolgy Comment on above: Follow up Start: 05-17-2025 Influenza vaccination Influenza Vaccine (#1) [facility] Start: 04-29-2025 End: 04-29-2025 Patient encounter procedure 04/29/2025 1:00 PM EDT Office Visit [facility] [address] [place] [address] [place] [address] [place] [address] Abnormal mammogram [R92.8] [facility] Comment on above: Abnormal mammogram [R92.8] Start: 04-28-2025 End: 04-28-2025 Patient encounter procedure 04/28/2025 9:00 AM EDT Office Visit Rheumatology [address] [place] [address] Esthela Vieira PA-C [address] [place] [address] Psoriatic arthritis (HCC) [L40.50] Rheumatology Comment on above: Psoriatic arthritis (HCC) [L40.50] Start: 04-02-2025 Glaucoma screening Dilated Retinal Exam [facility] Start: 03-30-2025 End: 03-30-2025 Patient encounter procedure 03/30/2025 1:00 PM EDT Office Visit General Surgery [address] [place] [address] Chema Templeton MD [address] [place] [address] follow up General Surgery Comment on above: follow up Start: 03-18-2025 End: 03-18-2025 ambulatory 03/18/2025 10:00 AM EDT Results Only [facility] [address] [facility] [place] [address] [facility] Start: 03-17-2025 End: 03-17-2025 Patient encounter procedure 03/17/2025 10:00 AM EDT Appointment Mammography [address] [place] [address] rt breast us core bx Mammography Comment on above: rt breast us core bx Start: 03-16-2025 End: 03-16-2025 Patient encounter procedure General Surgery Comment on above: History of colonic polyps [Z86.0100]; Fa ramirez history of colon cancer [Z80.0]; Abnormal stool caliber [R19.5] CONSULT: History of colonic polyps; Family history of colon cancer; Abnormal stool caliber. Last colonoscopy 02/25/2020. [facility] Start: 03-03-2025 End: 03-03-2026 RHIANNA BY IFA SCREEN [facility] Comment on above: Expected: 03/03/2025, Expires: Start: 03-03-2025 End: 03-03-2025 Patient encounter procedure 03/03/2025 9:40 AM EDT Office Visit [facility] [address] [place] [address] Pedro Jacob MD [address] [place] [address] Medicare wellness [facility] Comment on above: Medicare wellness Start: 02-24-2025 Colonoscopy COLONOSCOPY [facility] Start: 02-24-2025 COLORECTAL CANCER SCREENING COLORECTAL CANCER SCREENING [facility] Start: 02-24-2025 Screening for malignant neoplasm of colon [facility] Start: 02-23-2025 End: 02-23-2025 Patient encounter procedure 02/23/2025 9:00 AM EDT Office Visit General Surgery [address] [place] [address] Chema Templeton MD [address] [place] [address] LT AND RT BREAST CONSULT General Surgery Comment on above: LT AND RT BREAST CONSULT Start: 02-17-2025 Hemoglobin A1c measurement HbA1C [facility] Start: 02-17-2025 End: 02-17-2025 Patient encounter procedure Mammogram Comment on above: : Abnormal mammogram [R92.8] Start: 02-13-2025 Annual PCP Team Chronic Disease Visit Annual PCP Team Chronic Disease Visit [facility] Start: 02-13-2025 Anxiety Screening Anxiety Screening [facility] Start: 02-13-2025 Covid-19 Vaccine () Covid-19 Vaccine () [facility] Comment on above: Postponed from 08/27/2023 (Declined at t his time) Start: 02-13-2025 Depression Screening Depression Screening [facility] Start: 01-27-2025 Covid-19 Vaccine () Covid-19 Vaccine () [facility] Start: 01-07-2025 End: 01-07-2025 Patient encounter procedure 01/07/2025 10:50 AM EDT Appointment Mammogram [address] [place], [place] [address] Encounter for screening mammogram for malignant neoplasm of breast [Z12.31] Mammogram Comment on above: Encounter for screening mammogram for ma lignant neoplasm of breast [Z12.31] Start: 01-06-2025 Screening for malignant neoplasm of breast Mammogram Screening [facility] Start: 12-31-2024 End: 04-01-2025 Oiqbl-9-Gmbvntohtad [Mass/volume] in Serum or Plasma ALPHA FETOPROTEIN Lab Routine Hepatic fibrosis, advanced fibrosis Expected: 12/31/2024, Expires: 04/01/2025 [facility] Comment on above: Expected: 12/31/2024, Expires: Start: 12-31-2024 End: 04-01-2025 CBC panel - Blood by Automated count COMPLETE BLOOD COUNT Lab Routine Hepatic fibrosis, advanced fibrosis Expected: 12/31/2024, Expires: 04/01/2025 [facility] Comment on above: Expected: 12/31/2024, Expires: Start: 12-31-2024 End: 04-01-2025 Comprehensive metabolic 2000 panel - Serum or Plasma COMPREHENSIVE METABOLIC PANEL Lab Routine Hepatic fibrosis, advanced fibrosis Expected: 12/31/2024, Expires: 04/01/2025 [facility] Work Phone: Comment on above: Expected: 12/31/2024, Expires: Start: 12-31-2024 End: 04-01-2025 PT panel - Platelet poor plasma by Coagulation assay PROTHROMBIN TIME Lab Routine Hepatic fibrosis, advanced fibrosis Expected: 12/31/2024, Expires: 04/01/2025 [facility] Comment on above: Expected: 12/31/2024, Expires: Start: 12-31-2024 End: 08-01-2025 US Abdomen RUQ US ABD RIGHT UPPER QUADRANT Radiology Routine Hepatic fibrosis, advanced fibrosis Expected: 12/31/2024, Expires: 08/01/2025 [facility] Comment on above: Expected: 12/31/2024, Expires: Start: 11-03-2024 End: 11-03-2024 Patient encounter procedure 11/03/2024 10:00 AM EST Office Visit OB/Gynecology [address] [place], [place] [id number] Lindsey Traylor, HIGHWAY TECHNICIAN.BEHAVIORAL CONSULTANT [address] [place] [address] f/up OB/Gynecology Comment on above: f/up Start: 09-16-2024 Advance Directive Discussion Advance Directive Discussion [facility] Start: 08-19-2024 End: 11-18-2024 Hemoglobin A1c in Blood [facility] Comment on above: Expected: 08/19/2024, Expires: Start: 08-19-2024 End: 11-18-2024 Lipid 1996 panel - Serum or Plasma [facility] Work Phone: Comment on above: Expected: 08/19/2024, Expires: Start: 08-19-2024 End: 11-18-2024 Microalbumin/Creatinin e [Mass Ratio] in Urine [facility] Comment on above: Expected: 08/19/2024, Expires: Start: 08-19-2024 End: 08-19-2024 Patient encounter procedure 08/19/2024 10:00 AM EST Office Visit [facility] [address] [place] [address] Pedro Jacob MD [address] [place] [address] 6 month follow up [facility] Comment on above: 6 month follow up Start: 08-15-2024 Hemoglobin A1c measurement HbA1C [facility] Start: 08-02-2024 3 comp foot exam completed Diabetic Foot Exam [facility] Start: 08-02-2024 Annual PCP Team Chronic Disease Visit Annual PCP Team Chronic Disease Visit [facility] Start: 08-02-2024 BP Controlled (<130/80) BP Controlled (<130/80) [facility] Start: 08-02-2024 Diabetic foot examination Diabetic Foot Exam [facility] Start: 08-02-2024 Hepatitis B screening Urine Albumin:Creatinine Ratio [facility] Start: 08-02-2024 Hepatitis B surface antibody level LDL Cholesterol [facility] Start: 08-02-2024 Hepatitis B Vaccine (1 of 3 - Risk 3-dose series) Hepatitis B Vaccine (1 of 3 - Risk 3-dose series) [facility] Comment on above: Postponed from 2013 (Declined at t his time) Start: 08-02-2024 RSV Vaccine (1 - 1-dose 60+ series) RSV Vaccine (1 - 1-dose 60+ series) [facility] Comment on above: Postponed from 2013 (Declined at t his time) Start: 08-02-2024 RSV Vaccine (1 - Risk 60-74 years 1-dose series) RSV Vaccine (1 - Risk 60-74 years 1-dose series) [facility] Comment on above: Postponed from 2013 (Declined at t his time) Start: 07-02-2024 End: 07-02-2024 Patient encounter procedure Radiology Comment on above: Hepatic steatosis [K76.0] Start: 06-26-2024 End: 09-25-2024 Irgqw-1-Sdrbcujogmb [Mass/volume] in Serum or Plasma ALPHA FETOPROTEIN Lab Routine Hepatic steatosis Abnormal findings on diagnostic imaging of liver and biliary tract Expected: 06/26/2024, Expires: 09/25/2024 [facility] Comment on above: Expected: 06/26/2024, Expires: Start: 06-26-2024 End: 09-25-2024 CBC panel - Blood by Automated count COMPLETE BLOOD COUNT Lab Routine Hepatic steatosis Expected: 06/26/2024, Expires: 09/25/2024 [facility] Comment on above: Expected: 06/26/2024, Expires: Start: 06-26-2024 End: 09-25-2024 Comprehensive metabolic 2000 panel - Serum or Plasma COMPREHENSIVE METABOLIC PANEL Lab Routine Hepatic steatosis Expected: 06/26/2024, Expires: 09/25/2024 [facility] Work Phone: Comment on above: Expected: 06/26/2024, Expires: Start: 06-26-2024 End: 09-25-2024 PT panel - Platelet poor plasma by Coagulation assay PROTHROMBIN TIME Lab Routine Hepatic steatosis Expected: 06/26/2024, Expires: 09/25/2024 [facility] Comment on above: Expected: 06/26/2024, Expires: Start: 06-26-2024 End: 01-24-2025 US Abdomen RUQ US ABD RIGHT UPPER QUADRANT Radiology Routine Hepatic steatosis Expected: 06/26/2024, Expires: 01/24/2025 [facility] Comment on above: Expected: 06/26/2024, Expires: Start: 06-21-2024 BP Controlled (<130/80) BP Controlled (<130/80) [facility] Start: 05-17-2024 Covid-19 Vaccine ( season) Covid-19 Vaccine ( season) [facility] Start: 05-17-2024 Influenza vaccination Influenza Vaccine (#1) [facility] Start: 02-14-2024 End: 02-14-2024 Patient encounter procedure 02/14/2024 9:40 AM EDT Office Visit [facility] [address] [place] [address] Pedro Jacob MD [address] [place] [id number] 6 month follow up [facility] Comment on above: 6 month follow up Start: 01-31-2024 Hemoglobin A1c measurement HbA1C [facility] Start: 01-22-2024 ANNUAL PCP TEAM CHRONIC DISEASE VISIT ANNUAL PCP TEAM CHRONIC DISEASE VISIT [facility] Start: 01-22-2024 BP CONTROLLED (<130/80) BP CONTROLLED (<130/80) [facility] Start: 12-27-2023 Mammography [facility] Start: 12-27-2023 Screening for malignant neoplasm of breast Mammogram Screening [facility] Start: 12-21-2023 DDI VIBRATION CONTROLLED TRANSIENT ELASTOGRAPHY (VCTE) DDI VIBRATION CONTROLLED TRANSIENT ELASTOGRAPHY (VCTE) Endoscopy Routine Hepatic steatosis Expected: 12/21/2023 [facility] Work Phone: Comment on above: Expected: 12/21/2023 Start: 12-21-2023 End: 07-20-2024 US ABD RIGHT UPPER QUADRANT US ABD RIGHT UPPER QUADRANT Radiology Routine Hepatic steatosis Expected: 12/21/2023, Expires: 07/20/2024 [facility] Work Phone: Comment on above: Expected: 12/21/2023, Expires: Start: 09-16-2023 Advance Directive Discussion Advance Directive Discussion [facility] Start: 09-16-2023 Behavioral Health Screening Behavioral Health Screening [facility] Start: 09-16-2023 Depression Assessment Depression Assessment [facility] Start: 08-27-2023 Covid-19 Vaccine () Covid-19 Vaccine () [facility] Start: 08-16-2023 Hepatitis B screening URINE ALBUMIN:CREATININE RATIO [facility] Start: 08-16-2023 Hepatitis B surface antibody level LDL CHOLESTEROL [facility] Start: 08-03-2023 ANNUAL PCP TEAM CHRONIC DISEASE VISIT ANNUAL PCP TEAM CHRONIC DISEASE VISIT [facility] Start: 08-02-2023 End: 11-01-2023 ALBUMIN/CREAT RATIO RND UR [facility] Work Phone: Comment on above: Expected: 08/02/2023, Expires: 4 Start: 08-02-2023 End: 11-01-2023 Basic metabolic 2000 panel - Serum or Plasma [facility] Work Phone: Comment on above: Expected: 08/02/2023, Expires: 4 Start: 08-02-2023 End: 11-01-2023 Hemoglobin A1c in Blood [facility] Work Phone: Comment on above: Expected: 08/02/2023, Expires: 4 Start: 08-02-2023 End: 11-01-2023 Lipid 1996 panel - Serum or Plasma [facility] Work Phone: Comment on above: Expected: 08/02/2023, Expires: 4 Start: 08-01-2023 3 comp foot exam completed DIABETIC FOOT EXAM [facility] Start: 08-01-2023 ANNUAL PCP TEAM CHRONIC DISEASE VISIT ANNUAL PCP TEAM CHRONIC DISEASE VISIT [facility] Start: 07-24-2023 Hemoglobin A1c/Hemoglobin.total in Blood HBA1C [facility] Start: 07-23-2023 BP CONTROLLED (<130/80) BP CONTROLLED (<130/80) [facility] Start: 06-26-2023 BP CONTROLLED (<130/80) BP CONTROLLED (<130/80) [facility] Start: 06-21-2023 End: 08-21-2023 Xrxha-0-Iupemzqajis [Mass/volume] in Serum or Plasma [facility] Work Phone: Comment on above: Expected: 06/21/2023, Expires: 3 Start: 06-21-2023 End: 08-21-2023 CBC panel - Blood by Automated count [facility] Work Phone: Comment on above: Expected: 06/21/2023, Expires: 3 Start: 06-21-2023 End: 08-21-2023 Comprehensive metabolic 2000 panel - Serum or Plasma [facility] Work Phone: Comment on above: Expected: 06/21/2023, Expires: 3 Start: 06-21-2023 End: 08-21-2023 PT panel - Platelet poor plasma by Coagulation assay [facility] Work Phone: Comment on above: Expected: 06/21/2023, Expires: 3 Start: 06-21-2023 End: 01-19-2024 US ABD RIGHT UPPER QUADRANT US ABD RIGHT UPPER QUADRANT Radiology Routine Fatty liver Expected: 06/21/2023, Expires: 01/19/2024 [facility] Work Phone: Comment on above: Expected: 06/21/2023, Expires: 4 Start: 06-12-2023 BP CONTROLLED (<130/80) BP CONTROLLED (<130/80) [facility] Start: 05-17-2023 Covid-19 Vaccine () Covid-19 Vaccine () [facility] Start: 05-17-2023 Influenza vaccination [facility] Start: 01-21-2023 End: 03-23-2023 Basic metabolic 2000 panel - Serum or Plasma [facility] Work Phone: Comment on above: Expected: 01/21/2023, Expires: 3 Start: 01-21-2023 End: 03-23-2023 Hemoglobin A1c in Blood [facility] Work Phone: Comment on above: Expected: 01/21/2023, Expires: 3 Start: 01-18-2023 Adult depression screening assessment DEPRESSION SCREENING [facility] Start: 01-18-2023 ANNUAL PCP TEAM CHRONIC DISEASE VISIT ANNUAL PCP TEAM CHRONIC DISEASE VISIT [facility] Start: 01-18-2023 BP CONTROLLED (<130/80) BP CONTROLLED (<130/80) [facility] Start: 01-03-2023 Hemoglobin A1c/Hemoglobin.total in Blood HBA1C [facility] Start: 01-02-2023 Glaucoma screening Dilated Retinal Exam [facility] Start: 01-02-2023 Hepatitis C antibody, confirmatory test DILATED RETINAL EXAM [facility] Start: 12-04-2022 End: 02-03-2023 CBC panel - Blood by Automated count CBC Lab STAT Fatty liver Expected: 12/04/2022, Expires: 02/03/2023 [facility] Work Phone: Comment on above: Expected: 12/04/2022, Expires: 3 Start: 12-04-2022 End: 02-03-2023 PT panel - Platelet poor plasma by Coagulation assay PROTHROMBIN TIME/PT Lab STAT Fatty liver Expected: 12/04/2022, Expires: 02/03/2023 [facility] Work Phone: Comment on above: Expected: 12/04/2022, Expires: 3 Start: 11-09-2022 Mammography MAMMOGRAM [facility] Start: 11-02-2022 COVID-19 VACCINE (6 - Moderna series) COVID-19 VACCINE (6 - Moderna series) [facility] Start: 09-16-2022 ADVANCE DIRECTIVE DISCUSSION ADVANCE DIRECTIVE DISCUSSION [facility] Start: 09-16-2022 DEPRESSION ASSESSMENT DEPRESSION ASSESSMENT [facility] Start: 08-01-2022 End: 10-01-2022 ALBUMIN/CREAT RATIO RND UR ALBUMIN/CREAT RATIO RND UR Lab Routine Controlled type 2 diabetes mellitus without complication, without long-term current use of insulin (HCC) Expected: 08/01/2022, Expires: 10/01/2022 [facility] Work Phone: Comment on above: Expected: 08/01/2022, Expires: 3 Start: 08-01-2022 End: 10-01-2022 Basic metabolic 2000 panel - Serum or Plasma BASIC METABOLIC PNL Lab Routine CKD (chronic kidney disease) stage 2, GFR 60-89 ml/min Expected: 08/01/2022, Expires: 10/01/2022 [facility] Work Phone: Comment on above: Expected: 08/01/2022, Expires: 3 Start: 08-01-2022 End: 08-01-2023 HEP ACUTE PANEL/RNA HEP ACUTE PANEL/RNA Lab Routine Elevated liver enzymes Expected: 08/01/2022, Expires: 08/01/2023 [facility] Work Phone: Comment on above: Expected: 08/01/2022, Expires: 3 Start: 08-01-2022 End: 08-01-2023 Hepatic function 2000 panel - Serum or Plasma HEPATIC FUNCTION PNL Lab Routine Elevated liver enzymes Expected: 08/01/2022, Expires: 08/01/2023 [facility] Work Phone: Comment on above: Expected: 08/01/2022, Expires: 3 Start: 08-01-2022 End: 10-01-2022 Lipid 1996 panel - Serum or Plasma LIPID PANEL BASIC Lab Routine Controlled type 2 diabetes mellitus without complication, without long-term current use of insulin (HCC) Expected: 08/01/2022, Expires: 10/01/2022 [facility] Work Phone: Comment on above: Expected: 08/01/2022, Expires: 3 Start: 08-01-2022 End: 10-01-2022 Urinalysis complete panel - Urine URINALYSIS, WITH MICROSCOPIC Lab Routine CKD (chronic kidney disease) stage 2, GFR 60-89 ml/min Expected: 08/01/2022, Expires: 10/01/2022 [facility] Work Phone: Comment on above: Expected: 08/01/2022, Expires: 3 Start: 07-21-2022 Hemoglobin A1c/Hemoglobin.total in Blood HBA1C [facility] Start: 07-20-2022 Hepatitis B screening URINE ALBUMIN:CREATININE RATIO [facility] Start: 07-20-2022 Hepatitis B surface antibody level LDL CHOLESTEROL [facility] Start: 07-13-2022 3 comp foot exam completed DIABETIC FOOT EXAM [facility] Start: 07-13-2022 ANNUAL PCP TEAM CHRONIC DISEASE VISIT ANNUAL PCP TEAM CHRONIC DISEASE VISIT [facility] Start: 07-11-2022 End: 08-01-2023 NIC NDL LOC W NIC GD LT NIC NDL LOC W NIC GD LT Radiology Routine Intraductal papilloma of breast, left Expected: 07/11/2022, Expires: 08/01/2023 [facility] Work Phone: Comment on above: Expected: 07/11/2022, Expires: 3 Start: 07-10-2022 PNEUMOCOCCAL: 65+ (3 - PPSV23 if available, else PCV20) PNEUMOCOCCAL: 65+ (3 - PPSV23 if available, else PCV20) [facility] Start: 07-10-2022 PNEUMOCOCCAL: 65+ (3 - PPSV23 or PCV20) PNEUMOCOCCAL: 65+ (3 - PPSV23 or PCV20) [facility] Start: 07-10-2022 PNEUMOVAX AGE 65 AND OVER WITH 5YR LOOKBACK (#1) PNEUMOVAX AGE 65 AND OVER WITH 5YR LOOKBACK (#1) [facility] Start: 07-05-2022 End: 09-04-2022 Hemoglobin A1c in Blood [facility] Work Phone: Comment on above: Expected: 07/05/2022, Expires: 2 Start: 05-17-2022 Influenza vaccination INFLUENZA (#1) [facility] Start: 02-21-2022 COVID-19 VACCINE (5 - Booster for Moderna series) COVID-19 VACCINE (5 - Booster for Moderna series) [facility] Start: 01-18-2022 End: 03-20-2022 Hemoglobin A1c/Hemoglobin.total in Blood [facility] Work Phone: Comment on above: Expected: 01/18/2022, Expires: 2 Start: 01-17-2022 Hemoglobin A1c/Hemoglobin.total in Blood HBA1C [facility] Start: 09-16-2021 ADVANCE DIRECTIVE DISCUSSION ADVANCE DIRECTIVE DISCUSSION [facility] Start: 09-16-2021 DEPRESSION ASSESSMENT DEPRESSION ASSESSMENT [facility] Start: 2013 Hepatitis B Vaccine (1 of 3 - Risk 3-dose series) Hepatitis B Vaccine (1 of 3 - Risk 3-dose series) [facility] [facility] Start: 2013 RSV Vaccine (1 - 1-dose 60+ series) RSV Vaccine (1 - 1-dose 60+ series) [facility] Start: 2013 RSV Vaccine (1 - Risk 60-74 years 1-dose series) RSV Vaccine (1 - Risk 60-74 years 1-dose series) [facility] Start: 1998 COLOGUARD (FIT-DNA) COLOGUARD (FIT-DNA) [facility] Start: [address] COLONOGRAPHY [facility] Start: 1998 FECAL OCCULT BLOOD FECAL OCCULT BLOOD [facility] Start: 1998 Screening for malignant neoplasm of colon [facility] Start: 1998 SIGMOIDOSCOPY SIGMOIDOSCOPY [facility] Start: 1971 BP CONTROLLED (<130/80) BP CONTROLLED (<130/80) [facility] Start: 1965 Adult depression screening assessment DEPRESSION SCREENING [facility] Start: 1963 Hepatitis C antibody, confirmatory test DILATED RETINAL EXAM [facility] BACH SCREENING TEST BACH SCREENI NG TEST Procedures Routine Medicare annual wellness visit, subsequent Ordered: 03/03/2025 [facility] Work Phone: Comment on above: Ordered: 03/03/2025 BACTERIAL VAGINOSIS AMPLIFICATION BACTERIAL VAGINOSIS AMPLIFICATION Lab Routine Itching of vulva 10/11/2022 10:10 AM EST [facility] Work Phone: BACTERIAL VAGINOSIS NAAT BACTERIAL VAGINOSIS NAAT Lab Routine Vaginal irritation 06/23/2024 11:16 AM EDT [facility] ROLAND / TRICHOMONA S AMPLIFICATION ROLAND / TRICHOMONAS AMPLIFICATION Microbiology Routine Itching of vulva 10/11/2022 10:10 AM EST [facility] Work Phone: ROLAND/TRICHOMONAS NAAT ROLAND/TRICHOMONAS NAAT Lab Routine Vaginal irritation 06/23/2024 11:16 AM EDT [facility] Work Phone: End: 01-04-2025 DBT Breast - bilateral screening NIC SCREENING W NICOLE Radiology Routine Encounter for screening mammogram for malignant neoplasm of breast 1 Occurrences starting 12/06/2023 until 01/04/2025 [facility] Work Phone: Comment on above: 1 Occurrences starting 12/06/2023 until 01/04/2025 DBT Breast - bilater al screening NIC SCREENING W NICOLE Radiology Routine Encounter for screening mammogram for malignant neoplasm of breast 01/07/2024 11:59 AM EDT [facility] Work Phone: ECG COMPLETE ECG COMPLETE ECG Routine SOB (shortness of breath) Ordered: 03/03/2025 [facility] Comment on above: Ordered: 03/03/2025 End: 03-16-2026 EGD DIAGNOSTIC EGD DIAGNOSTIC Endoscopy Routine Dysphagia, unspecified type Bloating Belching 1 Occurrences starting 03/16/2025 until 03/16/2026 [facility] Work Phone: Comment on above: 1 Occurrences starting 03/16/2025 until 03/16/2026 IR TRANSJUGULAR LIVE R BX W/PRESS IR TRANSJUGULAR LIVER BX W/PRESS Radiology Routine Fatty liver Ordered: 11/13/2022 [facility] Work Phone: Comment on above: Ordered: 11/13/2022 End: 01-26-2024 NIC DIAGNOSTIC RIGHT NIC DIAGNOSTIC RIGHT Radiology Routine Abnormal mammogram 1 Occurrences starting 12/27/2022 until 01/26/2024 [facility] Work Phone: Comment on above: 1 Occurrences starting 12/27/2022 until 01/26/2024 End: 01-11-2024 NIC SCREENING W NICOLE NIC SCREENING W NICOLE Radiology Routine Encounter for screening mammogram for breast cancer 1 Occurrences starting 12/12/2022 until 01/11/2024 [facility] Work Phone: Comment on above: 1 Occurrences starting 12/12/2022 until 01/11/2024 End: 02-10-2026 MG Breast - right Diagnostic for implant NIC DIAGNOSTIC RIGHT Radiology Routine Abnormal mammogram 1 Occurrences starting 01/11/2025 until 02/10/2026 [facility] Work Phone: Comment on above: 1 Occurrences starting 01/11/2025 until 02/10/2026 End: 2025 MG Breast Screening NIC SCREENING Radiology Routine Encounter for screening mammogram for malignant neoplasm of breast 1 Occurrences starting 08/19/2024 until 2025 [facility] Comment on above: 1 Occurrences starting 08/19/2024 until 2025 End: 03-16-2026 Screening colonoscopy COLONOSCOPY SCREENING Endoscopy Routine History of colonic polyps Family history of colon cancer Abnormal stool caliber Screen for colon cancer 1 Occurrences starting 03/16/2025 until 03/16/2026 [facility] Comment on above: 1 Occurrences starting 03/16/2025 until 03/16/2026 SURGICAL PATHOLOGY SURGICAL PATH OLOGY Lab Routine Abnormal mammogram Ordered: 06/19/2022 [facility] Work Phone: Comment on above: Ordered: 06/19/2022 SURGICAL PATHOLOGY SURGICAL PATH OLOGY Lab Routine Skin lesion 08/03/2022 3:15 PM EST [facility] Work Phone: Tissue Pathology biopsy report [facility] Work Phone: Comment on above: Release Upon Ordering for 1 Occurrences starting 03/17/2025, 1 completed End: 07-20-2024 US ABD RIGHT UPPER QUADRANT US ABD RIGHT UPPER QUADRANT Radiology Routine Hepatic steatosis 1 Occurrences starting 06/21/2023 until 07/20/2024 [facility] Work Phone: Comment on above: 1 Occurrences starting 06/21/2023 until 07/20/2024 End: 02-10-2026 US Breast - right limited US BREAST LTD RIGHT Radiology Routine Abnormal mammogram 1 Occurrences starting 01/11/2025 until 02/10/2026 [facility] Comment on above: 1 Occurrences starting 01/11/2025 until 02/10/2026 End: 01-26-2024 US BREAST LTD RIGHT US BREAST LTD RIGHT Radiology Routine Abnormal mammogram 1 Occurrences starting 12/27/2022 until 01/26/2024 [facility] Work Phone: Comment on above: 1 Occurrences starting 12/27/2022 until 01/26/2024 End: 03-25-2026 US Guidance for biopsy of Breast - right US BIOPSY BREAST RIGHT Radiology Routine Abnormal mammogram 1 Occurrences starting 02/23/2025 until 03/25/2026 [facility] Work Phone: Comment on above: 1 Occurrences starting 02/23/2025 until 03/25/2026 End: 04-02-2026 XR Chest PA and Lateral XR CHEST 2V FRONTAL/LAT Radiology Routine SOB (shortness of breath) 1 Occurrences starting 03/03/2025 until 04/02/2026 [facility] Comment on above: 1 Occurrences starting 03/03/2025 until 04/02/2026 XR Chest PA and Lateral XR CHEST 2V FRONTAL/LAT Radiology Routine SOB (shortness of breath) 03/03/2025 11:33 AM EDT [facility] Immunizations Immun[facility] Date Immunization Notes Care Provider [facility] 07-30-2024 COVID-19 vaccine, ag e 12+ yr (MODERNA) Pedro Jacob MD Work Phone: [facility] 07-30-2024 influenza, high dose seasonal, preservative-free Pedro Jacob MD Work Phone: [facility] 07-30-2024 influenza virus vacc ine, unspecified formulation Evelyn Rodriguez HIGHWAY TECHNICIAN.BEHAVIORAL CONSULTANT Work Phone: [facility] 07-02-2023 COVID-19 vaccine, ag e 12+ yr, bivalent (MODERNA) Pedro Jacob MD Work Phone: [facility] 07-02-2023 influenza (HD-IIV4) vaccine, age 65+ yr, high dose, quadrivalent, PF (FLUZONE HIGH-DOSE) Pedro Jacob MD Work Phone: [facility] 07-02-2023 influenza virus vacc ine, unspecified formulation Pedro Jacob MD Work Phone: [facility] 08-01-2022 influenza, high-dose , quadrivalent vaccine (FLUZONE HIGH DOSE QUADRIVALENT) Pedro Jacob MD Work Phone: [facility] 08-01-2022 pneumococcal (PCV20) vaccine, 20 valent (PREVNAR 20) Pedro Jacob MD Work Phone: [facility] 08-01-2022 pneumococcal Conjuga te, unspecified formulation Pedro Jacob MD Work Phone: [facility] Work Phone: 08-01-2022 influenza virus vacc ine, unspecified formulation Olga Valdovinos HIGHWAY TECHNICIAN.BEHAVIORAL CONSULTANT Work Phone: [facility] 07-13-2021 influenza, high-dose , quadrivalent vaccine (FLUZONE HIGH DOSE QUADRIVALENT) Pedro Jacob MD Work Phone: [facility] 10-13-2020 zoster vaccine recombinant Pedro Jacob MD Work Phone: [facility] 07-28-2020 zoster vaccine recombinant Pedro Jacob MD Work Phone: [facility] 07-19-2020 influenza, injectabl e, quadrivalent, preservative free Pedro Jacob MD Work Phone: [facility] 07-14-2019 influenza, seasonal, injectable Pedro Jacob MD Work Phone: [facility] 07-09-2018 influenza, seasonal, injectable Pedro Jacob MD Work Phone: [facility] 07-09-2018 tetanus toxoid, redu philip diphtheria toxoid, and acellular pertussis vaccine, adsorbed Pedro Jacob MD Work Phone: [facility] 07-10-2017 influenza, seasonal, injectable Pedro Jacob MD Work Phone: [facility] 07-10-2017 pneumococcal polysaccharide vaccine, 23 valent Pedro Jacob MD Work Phone: [facility] 06-07-2016 influenza, seasonal, injectable Pedro Jacob MD Work Phone: [facility] 06-07-2016 pneumococcal conjuga te vaccine, 13 valent Pedro Jacob MD Work Phone: [facility] Payers Date Payer Category Payer Self-pay [id number] 2020 Private Health Insurance MMO MED ICARE SUPPLEMENT [id number] 2020 Unknown MMO MMO MEDICARE SUPPLEMENT [id number] 2020-Present [phone] [address] [place] [address] Indemnity [id number] 2020 Unknown MMO MMO MEDICARE SUPPLEMENT [id number] 2020-Present [phone] [address] [place] [address] Indemnity [id number] 2018 Medicare MEDICARE MEDICAR E A AND B [id number] 2018-Present [phone] [address] [address] [place] [address] Medicare [id number] 2018 Medicare [id number] 2018 Medicare [id number] 2013 Unknown [id number] Medicare [id number] Unknown [id number] Unknown [id number] Unknown [id number] Unknown [id number] Unknown [id number] Unknown [id number] Social History Date Type Detail Facility Start: 11-23-2021 End: 01-01-2022 Tobacco smoking status NEIS Unknown if ever smoked [facility] Work Phone: Start: 1955 Sex Assigned At Female W [facility] Start: 08-25-2015 End: 03-16-2025 Tobacco smoking status NHIS Ex-smoker [facility] End: 12-24-2009 History of tobacco use Current smoker [facility] End: 12-24-2009 History of tobacco use Cigarette Smoker [facility] Start: 08-25-2015 End: 01-18-2023 Cigarettes smoked current (pack per day) - Reported 1 [facility] Start: 08-25-2015 End: 03-16-2025 Tobacco use and exposure Smokeless tobacco non-user [facility] Start: 10-10-2021 End: 03-04-2025 Alcohol intake Ex-drinker (finding) [facility] Start: 08-25-2015 History SDOH Alcohol Comment rarely [facility] Start: 1955 Sex Assigned At Not on file [facility] Start: 10-22-2021 End: 08-03-2022 Exposure to SARS-CoV-2 (event) Not sure [facility] Start: 07-25-2022 End: 01-18-2023 History SDOH Alcohol Frequency 1 [facility] Start: 07-25-2022 End: 01-18-2023 History SDOH Alcohol Std Drinks 0 [facility] Start: 07-25-2022 History SDOH Social Connections Phone 5 [facility] Start: 07-25-2022 End: 01-18-2023 History SDOH Social Connections Get Together 3 [facility] Start: 07-25-2022 History SDOH Social Connections Faith 98 [facility] Start: 07-25-2022 End: 01-18-2023 History SDOH Financial 4 [facility] Start: 07-25-2022 End: 01-18-2023 History SDOH Transport Med 2 [facility] Start: 01-18-2023 End: 02-07-2024 Social connection and isolation panel [facility] Do you belong to any clubs or organizations such as methodist groups, [employer], [employer] or athletic groups, or school groups? No [facility] Are you now , , , , never or living with a partner? [facility] How often to you hav e a drink containing alcohol? Never [facility] How many standard dr inks containing alcohol do you have on a typical day? Patient does not drink [facility] How hard is it for y ou to pay for the very basics like food, housing, medical care, and heating Not very hard [facility] Do you feel stress - tense, restless, nervous, or anxious, or unable to sleep at night because your mind is troubled all the time - these days [OSQ] Only a little [facility] (I/We) worried whenilsa er (my/our) food would run out before (I/we) got money to buy more. Never true [facility] Do you feel stress - tense, restless, nervous, or anxious, or unable to sleep at night because your mind is troubled all the time - these days [OSQ] To some extent [facility] Do you belong to any clubs or organizations such as methodist groups, [employer], [employer] or athletic groups, or school groups? Yes [facility] History of tobacco use Passive smoker [facility] Start: 03-16-2025 End: 03-30-2025 Alcoholic beverage intake Current drinker of alcohol (finding) [facility] NEGATED: Highlighted rowStart: NINF History of tobacco use Passive smoker [facility] Medical Equipment Procedure Code Equipment Code Equipment Origin al Text Equipment Identifier Dates Test blood sugar(s) 1 times daily. Dx: Type 2 DM - Controlled E11.9 Insulin: No [id number], [id number] Start: 12-27-2022 End: 08-19-2024 Comment on above: Test blood sugar(s) 1 times daily. Dx: Type 2 DM - Controlled E11.9 Insulin: No Clinical Notes 07-13-2021 to 03-31-2025 Chema Templeton MD - 03/31/2025 9:24 AM Evelyn Carranza APRN.CHE - 03/16/2025 11:30 AM EDTJana Lei RT(R) - 03/03/2025 11:20 AM Pedro Sanders MD - 03/03/2025 9:29 AM EDT Note Date & Type Note Facility 03-31-2025 Note HNO ID: [id number] Author: CHEMA TEMPLETON MD Service: ? Author Type: Physician Type: Progress Notes Filed: 03/31/2025 09:27 Note Text: Subjective: Lisandra Abreu is a 69-year-old female presenting for follow-up on a recent breast biopsy. Lisandra recently underwent a breast biopsy, which revealed a complex sclerosing lesion with estrogen receptor duct positivity. Lisandra expresses concern about the possibility of needing future biopsies, noting that it has been only 2 years since a previous biopsy on the contralateral breast, which was completely benign. She is not comfortable with a watchful waiting approach and seeks further evaluation and management. Objective:There were no vitals taken for this visit. Biopsy site is clean without signs of infection FINAL DIAGNOSIS A. Right breast at 3 o'clock, subareolar, ultrasound-guided core biopsy with butterfly clip placement: - Complex sclerosing lesion. See Comment. at 1412 EDT Diagnosis Comment [facility] A. An immunohistochemical stain for p63 appears to highlight scattered myoepithelial cells in the lesion. An estrogen receptor immunohistochemical stain demonstrates occasional ductal cells positive. Reviewed by Drs. Jacome and Edinson via e-pathology. Assessment:Abnormal mammogram (primary encounter diagnosis) Plan:1. Abnormal mammogram (R92.8) Biopsy revealed a complex sclerosing lesion with estrogen receptor duct positivity. Although not diagnosed as ductal carcinoma in situ, the findings are not entirely benign. - Referred to Dr. Mell Portillo, a breast surgeon in [place], for further evaluation and management. - Discussed potential need for wire localization excisional breast biopsy to remove the lesion. - Patient understands and agrees with the plan. [facility] 03-31-2025 History of Present illness Narrative Subjective: Lisandra Abreu is a 69-year-old female presenting for follow-up on a recent breast biopsy. Lisandra recently underwent a breast biopsy, which revealed a complex sclerosing lesion with estrogen receptor duct positivity. Lisandra expresses concern about the possibility of needing future biopsies, noting that it has been only 2 years since a previous biopsy on the contralateral breast, which was completely benign. She is not comfortable with a watchful waiting approach and seeks further evaluation and management. Objective:There were no vitals taken for this visit. Biopsy site is clean without signs of infection FINAL DIAGNOSIS A. Right breast at 3 o'clock, subareolar, ultrasound-guided core biopsy with butterfly clip placement: - Complex sclerosing lesion. See Comment. at 1412 EDT Diagnosis Comment HL LAB A. An immunohistochemical stain for p63 appears to highlight scattered myoepithelial cells in the lesion. An estrogen receptor immunohistochemical stain demonstrates occasional ductal cells positive. Reviewed by Drs. Jacome and Edinson via e-pathology. Assessment:Abnormal mammogram (primary encounter diagnosis) Plan:1. Abnormal mammogram (R92.8) Biopsy revealed a complex sclerosing lesion with estrogen receptor duct positivity. Although not diagnosed as ductal carcinoma in situ, the findings are not entirely benign. - Referred to Dr. Mell Portillo, a breast surgeon in [place], for further evaluation and management. - Discussed potential need for wire localization excisional breast biopsy to remove the lesion. - Patient understands and agrees with the plan. documented in this encounter [facility] 03-16-2025 History of Present illness Narrative HISTORY AND PHYSICAL Lisandra Abreu : 1955 REFERRING PHYSICIAN: Pedro Jacob [address] [facility] [address] CHIEF COMPLAINT: Patient presents with: Cancer Surveillance: Colonoscopy screening HPI: Lisandra is a 69 year old female referred for endoscopy. Lisandra notes due for screening colonoscopy-family history of colon cancer in father & paternal uncle. Lisandra denies abdominal pain.. Lisandra denies diarrhea. Lisandra notes chronic constipation. -lifelong -doesn't take anything OTC Lisandra notes a change in bowel habits. -change in caliber -80% of the time stool comes out like a ribbon -longer than the last 6 months Lisandra denies melena. Lisandra denies bright red blood per rectum. Lisandra denies hemorrhoids. Lisandra denies heartburn. Lisandra notes dysphagia. -occassional, non conerning -more often with liquids then solids Lisandra denies a history of ulcers/ peptic ulcer disease. Lisandra notes a lot of bloating in the evenings & a lot of belching Lisandra follows with [facility] for CAD, CHF, HTN, HLD. Last OV 07/09. Last ECHO 02/04 EF 55%. She denies CP, dizziness, palpitations, syncope, edema, recent hospitalizations. +Shortness of Breath has ECHO scheduled 03/22/25 Other medical history is significant for T2DM, ELVER c/w CPAP, obesity and hx of renal cell cancer. Lisandra has undergone prior endoscopy. Last EGD & colonoscopy was 02/[address] Jenkins at [facility]. Sedation: Midazolam 5 mg IV, Fentanyl 100 micrograms IV, Diphenhydramine 50 mg IV EGD Impression: - Normal examined jejunum. Biopsied. - Normal. - Gastritis. Biopsied. - Non-severe reflux esophagitis. Biopsied. - Normal middle third of esophagus. Biopsied. - Ectopic gastric mucosa in the upper third of the esophagus. Biopsied. COLONOSCOPY Impression: - The entire examined colon is normal on direct and retroflexion views. - No specimens collected. CONVERTED FINAL DIAGNOSIS 1. Jejunum, biopsy (A) - Small bowel mucosa with no diagnostic alteration. - No evidence of celiac disease. 2. Stomach, antrum, biopsy (B) - Gastric antral mucosa with no diagnostic alteration. - Negative for H. pylori organisms on routine stain. 3. Esophagus, distal, biopsy (C) - Esophageal squamous and inflamed gastric cardia-type mucosa, consistent with reflux esophagitis. - Negative for intestinal metaplasia. 4. Esophagus, mid, biopsy (D) - Esophageal squamous mucosa with no diagnostic alteration. - No evidence of eosinophilic esophagitis. 5. Stomach, proximal, biopsy (E) - Esophageal squamous and gastric cardiofundic-type mucosa with focal intestinal metaplasia (see comment). - Negative for dysplasia. ANTONIO/cristi 02/26/2020 Current Outpatient Medications Medication Sig metFORMIN ER (GLUCOPHAGE XR) 500 mg 24 hr tablet Take 500 mg by mouth daily with breakfast. clobetasol (TEMOVATE) 0.05 % ointment Apply 1 application to affected area as directed. TO AFFECTED AREA 1-2 times a week for control of lichen sclerosis. atenolol (TENORMIN) 50 mg tablet Take 1 tablet by mouth once daily. hydroCHLOROthiazide 25 mg tablet Take 1 tablet by mouth once daily. meloxicam (MOBIC) 15 mg tablet Take 1 tablet by mouth once daily. atorvastatin (LIPITOR) 80 mg tablet Take 1 tablet by mouth once daily. blood sugar diagnostic (BLOOD GLUCOSE TEST) test strip Test blood sugar(s) 1 times daily. Dx: Type 2 DM - Controlled E11.9 Insulin: No estradiol (ESTRACE) 0.01 % (0.1 mg/gram) vaginal cream Use 1 g vaginally two times a week. Insert 1 gm vaginally every night x 14 nights then insert 1 gm vaginally twice weekly losartan (COZAAR) 100 mg tablet Take 1 tablet by mouth once daily. Lancets lancets Test blood sugar(s) 1 times daily. Dx: Type 2 DM - Controlled E11.9 Insulin: No amLODIPine (NORVASC) 10 mg tablet Take 10 mg by mouth once daily. Going to double check dosage. aspirin, enteric coated (ASPIRIN, ENTERIC COATED) 81 mg EC tablet Take 81 mg by mouth once daily. (Patient not taking: Reported on 03/16/2025) No current facility-administered medications for this visit. ALLERGIES: Erythromycin, Miroslava Inhibitors, Carvedilol, Corgard [Nadolol], Diltiazem, Metoprolol, Tetracycline Hcl (Bulk), and Verapamil PAST MEDICAL HISTORY Diagnosis Date Abnormal stool caliber 03/03/2025 Arthritis Congestive heart failure, unspecified HF chronicity, unspecified heart failure type (HCC) Controlled type 2 diabetes mellitus without complication, without long-term current use of insulin (HCC) Diabetes (HCC) Family history of colon cancer Hx of colonic polyps Hyperlipidemia, unspecified hyperlipidemia type Hypertension Lichen sclerosus et atrophicus Metabolic dysfunction-associated steatotic liver disease (MASLD) Morbid (severe) obesity due to excess calories (HCC) Obesity, Class III, BMI 40-49.9 (morbid obesity) (HCC) ELVER (obstructive sleep apnea) uses cpap. sees Dr. Walters. Primary hypertension Psoriatic arthritis (HCC) Pulmonary HTN (HCC) Snoring TIA (transient ischemic attack) 2014 PAST SURGICAL HISTORY Procedure Laterality Date BACK SURGERY HX BREAST BX NEEDLE CORE LEFT Left 06/19/2022 ultrasound guided needle core biopsy left breast BREAST SURGERY HX 07/11/2022 left breast lumpectomy COLONOSCOPY FLX DX W/COLLJ SPEC WHEN PFRMD 08/25/2015 Colonoscopy COLONOSCOPY FLX DX W/COLLJ SPEC WHEN PFRMD 02/25/2020 Colonoscopy 5 yr interval ESOPHAGOGASTRODUODENOSCOPY TRANSORAL DIAGNOSTIC 02/25/2020 esophagitis, intestinal metaplasia on stomach biopsies. Repeat in 2-3 years HAND SURGERY HX several on both hands HYSTERECTOMY HX with subsequent BSO KIDNEY SURGERY HX 1997 left kidney removed from cancer LEFT HEART CATH,PERCUTANEOUS normal per Dr. Cheema TONSILLECTOMY & ADENOIDECTOMY <AGE 10 FAMILY HISTORY Problem Relation Age of Onset Heart disease Mother Emphysema Mother Colon Cancer Father Heart Father Diabetes Brother other (diverticulitis) Maternal Grandmother Heart Attack Maternal Grandmother No Known Problems Maternal Grandfather Diabetes Paternal Grandmother Heart Attack Paternal Grandfather Stroke Paternal Grandfather Social History Tobacco Use Smoking status: Former Current packs/day: 0.00 Types: Cigarettes Quit date: 12/24/2009 Years since quittin.2 Passive exposure: Past Smokeless tobacco: Never Vaping Use Vaping status: Former Substance Use Topics Alcohol use: Yes Comment: rarely Drug use: Never PHYSICAL EXAMINATION: General: The patient is 69 year old, female well nourished, well hydrated in no acute distress. The patient is oriented to time, place, and person. VITALS: Blood pressure 126/72, pulse 68, temperature 36.2 C (97.1 F), resp. rate 20, height 167.6 cm (5' 6), weight 125.6 kg (277 lb), SpO2 97%. Body mass index is 44.71 kg/m . HEENT: Normal cephalic, ataumatic, pupils are equally round, sclera are anicteric, mucous membranes are moist, oropharynx is clear. Neck has no masses or asymmetry . Respiratory: Clear to auscultation. Cardiac: Regular rate and rhythm. Abdominal exam: Soft, nontender, with no palpable masses. No hepatosplenomegaly. No palpable hernias. Extremities: no clubbing or cyanosis LABORATORY VALUES: As Noted RADIOLOGIC STUDIES: As Noted Assessment IMPRESSION: screen for colon cancer, family hx of colon cancer in father, hx of colon polyps, abnormal stool caliber, bloating, belching, dysphagia PLAN: I have reviewed my findings with the surgeon. Will plan for upper and lower endoscopy. We discussed the risks and benefits of the planned endoscopy in terms understandable to the patient. I have informed the patient that complications can occur including failure to complete the endoscopy and perforation. Lisandra had the opportunity to ask questions concerning the planned endoscopy. Lisandra freely consents to surgery. I plan to use Golytely bowel preparation I have explained to the patient the difference between IV conscious sedation and MAC anesthesia - and I have offered either, according to the patient's wishes. I have explained that with IV conscious sedation there is no anesthesia provider available and therefore there is a limitation of the amount of IV medications that can be given and that the patient may wake up in the middle of the procedure and/or experience pain/discomfort during the procedure. Further discussion was done and the patient was given the opportunity to ask questions and all questions were answered. MAC anesthesia d/t comorbidities. Lisandra was counseled that if there are changes in his/her medical condition, to let the office know if surgery should proceed. If there are changes in patient's medical condition from time of this encounter to the day of the procedure that preclude anesthesia, patient may have procedure cancelled for patient's safety. Diagnoses: (Z86.0100) History of colonic polyps (Z80.0) Family history of colon cancer (R19.5) Abnormal stool caliber Consultation requested by Dr. Jacob for an opinion regarding colon cancer screen, family hx of colon cancer, abnormal stool caliber. My final recommendations will be communicated back to the requesting physician by way of shared Medical record or letter to requesting physician via US mail. Portions of this documentation were copied and pasted from previous office visit notes in order to provide a cohesive continuity of the history. The note has been reviewed and edited and updated as necessary. Evelyn Rodriguez APRN.CHE documented in this encounter [facility] 03-16-2025 Note HNO ID: [id number] Author: EVELYN RODRIGUEZ APRN.BEHAVIORAL CONSULTANT Service: ? Author Type: Nurse Practitioner Type: Progress Notes Filed: 03/16/2025 11:56 Note Text: HISTORY AND PHYSICAL Lisandra Abreu : 1955 REFERRING PHYSICIAN: Pedro Jacob [address] [facility] [id number] CHIEF COMPLAINT: Patient presents with: Cancer Surveillance: Colonoscopy screening HPI: Lisandra is a 69 year old female referred for endoscopy. Lisandra notes due for screening colonoscopy-family history of colon cancer in father AND paternal uncle. Lisandra denies abdominal pain.. Lisandra denies diarrhea. Lisandra notes chronic constipation. -lifelong -doesn't take anything OTC Lisandra notes a change in bowel habits. -change in caliber -80% of the time stool comes out like a ribbon -longer than the last 6 months Lisandra denies melena. Lisandra denies bright red blood per rectum. Lisandra denies hemorrhoids. Lisandra denies heartburn. Lisandra notes dysphagia. -occassional, non conerning -more often with liquids then solids Lisandra denies a history of ulcers/ peptic ulcer disease. Lisandra notes a lot of bloating in the evenings AND a lot of belching Lisandra follows with [facility] for CAD, CHF, HTN, HLD. Last OV 07/09. Last ECHO 02/04 EF 55%. She denies CP, dizziness, palpitations, syncope, edema, recent hospitalizations. +Shortness of Breath has ECHO scheduled 03/22/25 Other medical history is significant for T2DM, ELVER c/w CPAP, obesity and hx of renal cell cancer. Lisandra has undergone prior endoscopy. Last EGD AND colonoscopy was 02/[address] Jenkins at [facility]. Sedation: Midazolam 5 mg IV, Fentanyl 100 micrograms IV, Diphenhydramine 50 mg IV EGD Impression: - Normal examined jejunum. Biopsied. - Normal. - Gastritis. Biopsied. - Non-severe reflux esophagitis. Biopsied. - Normal middle third of esophagus. Biopsied. - Ectopic gastric mucosa in the upper third of the esophagus. Biopsied. COLONOSCOPY Impression: - The entire examined colon is normal on direct and retroflexion views. - No specimens collected. CONVERTED FINAL DIAGNOSIS 1. Jejunum, biopsy (A) - Small bowel mucosa with no diagnostic alteration. - No evidence of celiac disease. 2. Stomach, antrum, biopsy (B) - Gastric antral mucosa with no diagnostic alteration. - Negative for H. pylori organisms on routine stain. 3. Esophagus, distal, biopsy (C) - Esophageal squamous and inflamed gastric cardia-type mucosa, consistent with reflux esophagitis. - Negative for intestinal metaplasia. 4. Esophagus, mid, biopsy (D) - Esophageal squamous mucosa with no diagnostic alteration. - No evidence of eosinophilic esophagitis. 5. Stomach, proximal, biopsy (E) - Esophageal squamous and gastric cardiofundic-type mucosa with focal intestinal metaplasia (see comment). - Negative for dysplasia. ANTONIO/cristi 02/26/2020 Current Outpatient Medications Medication Sig metFORMIN ER (GLUCOPHAGE XR) 500 mg 24 hr tablet Take 500 mg by mouth daily with breakfast. clobetasol (TEMOVATE) 0.05 % ointment Apply 1 application to affected area as directed. TO AFFECTED AREA 1-2 times a week for control of lichen sclerosis. atenolol (TENORMIN) 50 mg tablet Take 1 tablet by mouth once daily. hydroCHLOROthiazide 25 mg tablet Take 1 tablet by mouth once daily. meloxicam (MOBIC) 15 mg tablet Take 1 tablet by mouth once daily. atorvastatin (LIPITOR) 80 mg tablet Take 1 tablet by mouth once daily. blood sugar diagnostic (BLOOD GLUCOSE TEST) test strip Test blood sugar(s) 1 times daily. Dx: Type 2 DM - Controlled E11.9 Insulin: No estradiol (ESTRACE) 0.01 % (0.1 mg/gram) vaginal cream Use 1 g vaginally two times a week. Insert 1 gm vaginally every night x 14 nights then insert 1 gm vaginally twice weekly losartan (COZAAR) 100 mg tablet Take 1 tablet by mouth once daily. Lancets lancets Test blood sugar(s) 1 times daily. Dx: Type 2 DM - Controlled E11.9 Insulin: No amLODIPine (NORVASC) 10 mg tablet Take 10 mg by mouth once daily. Going to double check dosage. aspirin, enteric coated (ASPIRIN, ENTERIC COATED) 81 mg EC tablet Take 81 mg by mouth once daily. (Patient not taking: Reported on 03/16/2025) No current facility-administered medications for this visit. ALLERGIES: Erythromycin, Miroslava Inhibitors, Carvedilol, Corgard [Nadolol], Diltiazem, Metoprolol, Tetracycline Hcl (Bulk), and Verapamil PAST MEDICAL HISTORY Diagnosis Date Abnormal stool caliber 03/03/2025 Arthritis Congestive heart failure, unspecified HF chronicity, unspecified heart failure type (HCC) Controlled type 2 diabetes mellitus without complication, without long-term current use of insulin (HCC) Diabetes (HCC) Family history of colon cancer Hx of colonic polyps Hyperlipidemia, unspecified hyperlipidemia type Hypertension Lichen sclerosus et atrophicus Metabolic dysfunction-associated steatotic liver disease (MASLD) Morbid (severe) obesity due to excess calories (more content not included)... [facility] 03-03-2025 History of Present illness Narrative Radiology Service Progress Note PATIENT NAME: Lisandra Abreu DATE OF SERVICE: March 03, 2025 TIME: 11:24 AM PATIENT IDENTITY VERIFICATION COMPLETED USING TWO (2) IDENTIFIERS: Name and Date of confirmed by patient verbally. FALL SCREENING: Has the patient had 2 falls in the last year or 1 fall with injury or currently using an Ambulatory Assistive Device (Walker, Cane, Wheelchair, Crutches, etc.)? No PATIENT GENDER DATA: Assigned female at . status: : No status: NO. PATIENT RELEVANT IMPLANT DATA REVIEWED: Not Applicable PATIENT PRESENTS WITH AN IMPLANTABLE OR ATTACHED MOLDER FLOOR: No RADIOLOGY DEPARTMENT: General X-ray: Exam(s) Completed: Chest X-Ray PERIPHERAL IV DATA: Not applicable SIGNED BY: RT Cruzito(R) March 03, 2025 11:24 AM documented in this encounter [facility] 03-03-2025 Note HNO ID: [id number] Author: JANA LEI RT(R) Service: Radiology Author Type: Technologist Type: Progress Notes Filed: 03/03/2025 11:34 Note Text: Radiology Service Progress Note PATIENT NAME: Lisandra Abreu DATE OF SERVICE: March 03, 2025 TIME: 11:24 AM PATIENT IDENTITY VERIFICATION COMPLETED USING TWO (2) IDENTIFIERS: Name and Date of confirmed by patient verbally. FALL SCREENING: Has the patient had 2 falls in the last year or 1 fall with injury or currently using an Ambulatory Assistive Device (Walker, Cane, Wheelchair, Crutches, etc.)? No PATIENT GENDER DATA: Assigned female at . status: : No status: NO. PATIENT RELEVANT IMPLANT DATA REVIEWED: Not Applicable PATIENT PRESENTS WITH AN IMPLANTABLE OR ATTACHED MOLDER FLOOR: No RADIOLOGY DEPARTMENT: General X-ray: Exam(s) Completed: Chest X-Ray PERIPHERAL IV DATA: Not applicable SIGNED BY: Jana Lei, RT(R) March 03, 2025 11:24 AM [facility] 03-03-2025 Note HNO ID: [id number] Author: PEDRO JACOB MD Service: ? Author Type: Physician Type: Progress Notes Filed: 03/03/2025 13:05 Note Text: Lisandra Abreu is a 69 year old female here for a Medicare wellness visit. Medicare Health Risk Assessment General Health Fair Exercise: Minutes/Day 30 min Exercise: Days/Week 3 days Alcohol: Daily Use Never Alcohol: Drinks/Day Patient does not drink Alcohol: 6 or more drinks Never Feel off balance No Concerns: Teeth/Dentures No Concerns: Sexual function Decline Troubled by feelings Stressed; Irritable Frequency: Eating healthy diet Several days ADLs requiring help Housework; Sitting or standing Safety precautions in home/vehicle Yes Smoke, vape, chews tobacco No Difficulty hearing Yes, I wear a hearing aid Difficulty seeing No Current Providers Specialists: I have reviewed specialist-related care of the patient in the medical record. Current care team: Patient Care Team: Pedro Jacob MD as PCP - General (Family Medicine) Myrna Odell APRN.CNP as Campus Rep (Family Medicine) Anika Bullock APRN.CNP as Campus Rep (Family Medicine) Optho: Dr Ram. Cardiology: Dr Cheema Pulmonary: [facility] GASTROENTEROLOGY: KAITLYNN Lacy, ROAD P[employer]ER OPERATOR Dr Templeton, surgeon. Medical/Family history review Reviewed and updated problem list, medical/surgical/family/social history, medications, and allergies. Opioid use review Opioid Medications (last 90 days) No data to display Anxiety/Depression screening PHQ-2 Score: 0 FLAKITA-7 Score: 4 (Minimal Anxiety) Recommendation: no further intervention at this time Cognitive screening Attempted bach. Will resend Cognitive screening reviewed and Patient declined Mini-Cog test. Functional Observation Was the patient's Timed Up AND Go test unsteady or >= 12 seconds? No Advance Care Planning Patient did not wish or was not able to name a surrogate decision maker or provide an advance care plan Measurements BP 132/72 Pulse 63 Ht 167 cm (5' 5.75) Wt 125.6 kg (277 lb) SpO2 96% BMI 45.05 kg/m? Vision Screening: Follows with optometry/ophthalmology ADDITIONAL INFO: Annual Wellness Exam: - Last seen by cardiology in the fall; next appointment scheduled for June. - Last echocardiogram in 2021 showed normal left ventricular systolic function with EF of 55%, stage 1 diastolic dysfunction, and pulmonary artery pressure of 24 mmHg. - Recently seen by pulmonary; received a new CPAP this year. - Last labs with GI in December. - Family history of colon cancer; father from it. - No new bowel changes or blood in stools; reports ribbon-like stools more frequently than before. - No issues with balance, teeth, or dentures. - Vision is 20/20 after cataract surgery last year; still requires readers. - Hearing aid is effective. - No issues with urination or nocturia. - No chest pain, dizziness, or palpitations. - No cough or wheezing. - No tobacco use. - No alcohol consumption. - No depression or anhedonia. - No medical living will. Dyspnea: - Dyspnea on exertion worsening over the past few weeks. - Aggravated by heat; less severe in air-conditioned environments. - Nocturnal dyspnea not reported. - No associated chest pain, dizziness, or palpitations. Edema: - Bilateral lower extremity edema worsening over the past 2-3 weeks. - Edema extends up to the knees, more pronounced in the right leg. - Edema reduces overnight but not as quickly as before. - No associated chest pain, dizziness, or palpitations. Psoriatic Arthritis: - Psoriasis improved with fish oil or krill supplements. - Arthritis symptoms worsening, with nodules and joint deformities in hands, ankle, and toes. - Previous unsatisfactory experience with rheumatology. NAFLD: - Last seen by GI 6-7 months ago; considering resuming follow-up. - Previous ultrasounds showed fatty liver with poor visualization due to interference. ELVER: - Using CPAP consistently; no sleep without it. Anxiety: - Chronic stress related to a long-term relationship. - No current need for counseling or medication changes. Lifestyle: - Exercises 30 minutes, 3 days a week in the summer; inactive in winter. - Stress eater; reports overeating. - No unexpected weight gain; attributes weight changes to diet. - Follows safety precautions in home and vehicle. ROS: Constitutional: (+) fatigue, (-) unexpected weight gain Eyes: (-) visual disturbance Ears/Nose/Mouth/Throat: (-) dental problems, (-) hearing difficulty Neck: (-) neck masses Cardiovascular: (+) intermittent chest discomfort, (+) bilateral lower extremity edema, (-) chest pain, (-) palpitations, (-) orthopnea Respiratory: (+) exertional dyspnea, (-) cough, (-) wheezing Gastrointestinal: (+) intermittent ribbon-like stools, (-) melena, (-) hematochezia Genitourinary: (-) dysuria, (-) nocturia Musculoskeletal: (more content not included)... [facility] 03-03-2025 History of Present illness Narrative Images from the original note were not included. Lisandra Abreu is a 69 year old female here for a Medicare wellness visit. Medicare Health Risk Assessment General Health Fair Exercise: Minutes/Day 30 min Exercise: Days/Week 3 days Alcohol: Daily Use Never Alcohol: Drinks/Day Patient does not drink Alcohol: 6 or more drinks Never Feel off balance No Concerns: Teeth/Dentures No Concerns: Sexual function Decline Troubled by feelings Stressed; Irritable Frequency: Eating healthy diet Several days ADLs requiring help Housework; Sitting or standing Safety precautions in home/vehicle Yes Smoke, vape, chews tobacco No Difficulty hearing Yes, I wear a hearing aid Difficulty seeing No Current Providers Specialists: I have reviewed specialist-related care of the patient in the medical record. Current care team: Patient Care Team: Pedro Jacob MD as PCP - General (Family Medicine) Myrna Odell APRN.CHE as Campus Rep (Family Medicine) Anika Bullock APRN.CNP as Campus Rep (Family Medicine) Optho: Dr Ram. Cardiology: Dr Cheema Pulmonary: [facility] GASTROENTEROLOGY: KAITLYNN Lacy, ROAD P[employer]ER OPERATOR Dr Templeton, surgeon. Medical/Family history review Reviewed and updated problem list, medical/surgical/family/social history, medications, and allergies. Opioid use review Opioid Medications (last 90 days) No data to display Anxiety/Depression screening PHQ-2 Score: 0 FLAKITA-7 Score: 4 (Minimal Anxiety) Recommendation: no further intervention at this time Cognitive screening Attempted bach. Will resend Cognitive screening reviewed and Patient declined Mini-Cog test. Functional Observation Was the patient's Timed Up & Go test unsteady or >= 12 seconds? No Advance Care Planning Patient did not wish or was not able to name a surrogate decision maker or provide an advance care plan Measurements BP 132/72 Pulse 63 Ht 167 cm (5' 5.75) Wt 125.6 kg (277 lb) SpO2 96% BMI 45.05 kg/m Vision Screening: Follows with optometry/ophthalmology ADDITIONAL INFO: Annual Wellness Exam: - Last seen by cardiology in the fall; next appointment scheduled for June. - Last echocardiogram in 2021 showed normal left ventricular systolic function with EF of 55%, stage 1 diastolic dysfunction, and pulmonary artery pressure of 24 mmHg. - Recently seen by pulmonary; received a new CPAP this year. - Last labs with GI in December. - Family history of colon cancer; father from it. - No new bowel changes or blood in stools; reports ribbon-like stools more frequently than before. - No issues with balance, teeth, or dentures. - Vision is 20/20 after cataract surgery last year; still requires readers. - Hearing aid is effective. - No issues with urination or nocturia. - No chest pain, dizziness, or palpitations. - No cough or wheezing. - No tobacco use. - No alcohol consumption. - No depression or anhedonia. - No medical living will. Dyspnea: - Dyspnea on exertion worsening over the past few weeks. - Aggravated by heat; less severe in air-conditioned environments. - Nocturnal dyspnea not reported. - No associated chest pain, dizziness, or palpitations. Edema: - Bilateral lower extremity edema worsening over the past 2-3 weeks. - Edema extends up to the knees, more pronounced in the right leg. - Edema reduces overnight but not as quickly as before. - No associated chest pain, dizziness, or palpitations. Psoriatic Arthritis: - Psoriasis improved with fish oil or krill supplements. - Arthritis symptoms worsening, with nodules and joint deformities in hands, ankle, and toes. - Previous unsatisfactory experience with rheumatology. NAFLD: - Last seen by GI 6-7 months ago; considering resuming follow-up. - Previous ultrasounds showed fatty liver with poor visualization due to interference. ELVER: - Using CPAP consistently; no sleep without it. Anxiety: - Chronic stress related to a long-term relationship. - No current need for counseling or medication changes. Lifestyle: - Exercises 30 minutes, 3 days a week in the summer; inactive in winter. - Stress eater; reports overeating. - No unexpected weight gain; attributes weight changes to diet. - Follows safety precautions in home and vehicle. ROS: Constitutional: (+) fatigue, (-) unexpected weight gain Eyes: (-) visual disturbance Ears/Nose/Mouth/Throat: (-) dental problems, (-) hearing difficulty Neck: (-) neck masses Cardiovascular: (+) intermittent chest discomfort, (+) bilateral lower extremity edema, (-) chest pain, (-) palpitations, (-) orthopnea Respiratory: (+) exertional dyspnea, (-) cough, (-) wheezing Gastrointestinal: (+) intermittent ribbon-like stools, (-) melena, (-) hematochezia Genitourinary: (-) dysuria, (-) nocturia Musculoskeletal: (+) diffuse joint pain Skin: (+) enlarging left thigh lesion, (-) psoriatic rash Neurological: (-) dizziness, (-) balance problems Psychiatric: (+) chronic stress, (-) depressed mood, (-) anhedonia PE: GENERAL: NAD, alert and oriented. SKIN: Unremarkable, no rash or skin lesions. HEAD: Normocephalic. EYES: PERRLA, EOMI, conjunctiva clear. EARS: External ears normal, canals clear, TM's normal. NOSE/SINUSES: Nares normal. Septum midline. OROPHARYNX: Lips, mucosa, and tongue normal, good dentition. No oral lesions noted. NECK: Supple, no lymphadenopathy, normal thyroid, no carotid bruits. LUNGS: Clear to auscultation bilaterally, no wheezes/rhonchi/rales. HEART: Regular rate and rhythm, no murmurs. No ectopy. EXTREMITIES: Normal, no deformities, no skin discoloration, no edema. NEURO: Awake, alert and oriented x3, cranial nerves II-XII grossly intact, normal gait, no involuntary motions. Assessment and Plan: 1. Medicare annual wellness visit, subsequent (Z00.00) - Completed Medicare annual wellness visit. - Reviewed current health status, exercise habits, diet, and specialist care. - Discussed the importance of maintaining regular follow-ups with specialists. - Patient is up to date on most health maintenance items. 2. Encounter for screening examination for other mental health and behavioral disorders (Z13.39) - Discussed stress and irritability; patient denies need for further intervention or counseling at this time. - Patient denies feeling down, depressed, or hopeless. - Resent BACH survey to patient's MyChart. 3. Morbid (severe) obesity due to excess calories (HCC) (E66.01) 4. Obesity, Class III, BMI 40-49.9 (morbid obesity) (HCC) (E66.813) - Discussed dietary habits and stress eating. - Encouraged regular exercise and healthy eating habits. 5. Psoriatic arthritis (HCC) (L40.50) - Symptoms worsening, with joint deformities noted in hands and toes. - Referred to rheumatology nurse practitioner at [facility] for further evaluation and management. - Ordered arthritis studies including ESR, CRP, RHIANNA, and Rheumatoid Factor. 6. Congestive heart failure, unspecified HF chronicity, unspecified heart failure type (HCC) (I50.9) 7. Pulmonary HTN (HCC) (I27.20) 8. SOB (shortness of breath) (R06.02) - Reviewed last echocardiogram from 2021 showing normal LV systolic function, EF of 55%, stage 1 diastolic dysfunction, and pulmonary artery pressure of 24 mmHg. - Noted worsening dyspnea and edema in lower extremities. - Ordered BNP, EKG, and chest X-ray to assess current status. - Follow-up pulmonology ([facility]) as scheduled. Move appt up with cardiology. 9. Primary hypertension (I10) - Continue current antihypertensive regimen. - Monitor blood pressure regularly. 10. Hyperlipidemia, unspecified hyperlipidemia type (E78.5) - Continue current lipid-lowering therapy. 11. ELVER (obstructive sleep apnea) (G47.33) - Patient is compliant with CPAP use. - Follow-up with pulmonology as scheduled. 12. Metabolic dysfunction-associated steatotic liver disease (MASLD) (K76.0) - Discussed importance of regular follow-ups with hepatology. - Referred back to hepatology for further management and potential treatment options. 13. Controlled type 2 diabetes mellitus without complication, without long-term current use of insulin (HCC) (E11.9) - Ordered A1c and CMP to assess glycemic control. - Continue current diabetes management plan. 14. Screening for depression (Z13.31) - Patient denies feeling down, depressed, or hopeless. - No further intervention needed at this time. 15. History of colonic polyps (Z86.0100) 16. Family history of colon cancer (Z80.0) 17. Abnormal stool caliber (R19.5) - Referred to GI for colonoscopy due to family history of colon cancer and changes in stool caliber. - Discussed importance of regular screenings. - Will need cardiac clearance prior to colonoscopy Pedro Jacob MD Recording using [employer] software for draft documentation of the visit was discussed with the patient/authorized safety representative; all questions welcomed and answered. Patient/authorized safety representative agreed to proceed documented in this encounter [facility] 02-23-2025 Note HNO ID: [id number] Author: CHEMA TEMPLETON MD Service: ? Author Type: Physician Type: Progress Notes Filed: 02/23/2025 14:42 Note Text: HISTORY AND PHYSICAL - BREAST COMPLAINT Lisandra Solomon Abreu 1955 REFERRING PHYSICIAN: Pedro Jacob MD CHIEF COMPLAINT: Abnormal mammogram (primary encounter diagnosis) HPI: The patient is a 69 year old female with a complaint of an abnormal mammogram. The patient had a mammogram with ultrasound on 02/17/25 which demonstrated : The 0.4 cm lesion in the right breast at 3 o'clock, retroareolar region is suspicious for malignancy. Ultrasound-guided biopsy is recommended. There are multiple additional similar appearing smaller lesion in the subareolar region and inferior breast. Mammographically these appear stable since 11/09/21. Further management of these lesions should be guided by biopsy result. The patient denies a history of breast masses. She does perform a self breast exam routinely. She notes no skin changes. She denies nipple discharge. She notes no axillary masses. She notes no family history of breast problems. She notes no significant breast trauma or breast difficulties in the past. The patient is being seen by me today at the request of Dr. Pedro Jacob MD for my opinion and advice regarding Abnormal mammogram (primary encounter diagnosis). PAST MEDICAL HISTORY Diagnosis Date Arthritis Diabetes (HCC) Family history of colon cancer Hx of colonic polyps Hypertension Lichen sclerosus et atrophicus ELVER (obstructive sleep apnea) uses cpap. sees Dr. Walters. Snoring TIA (transient ischemic attack) 2014 PAST SURGICAL HISTORY Procedure Laterality Date BACK SURGERY HX BREAST BX NEEDLE CORE LEFT Left 06/19/2022 ultrasound guided needle core biopsy left breast BREAST SURGERY HX 07/11/2022 left breast lumpectomy COLONOSCOPY FLX DX W/COLLJ SPEC WHEN PFRMD 08/25/2015 Colonoscopy COLONOSCOPY FLX DX W/COLLJ SPEC WHEN PFRMD 02/25/2020 Colonoscopy 5 yr interval ESOPHAGOGASTRODUODENOSCOPY TRANSORAL DIAGNOSTIC 02/25/2020 esophagitis, intestinal metaplasia on stomach biopsies. Repeat in 2-3 years HAND SURGERY HX several on both hands HYSTERECTOMY HX with subsequent BSO KIDNEY SURGERY HX 1997 left kidney removed from cancer LEFT HEART CATH,PERCUTANEOUS normal per Dr. Cheema TONSILLECTOMY AND ADENOIDECTOMY Current Outpatient Medications Medication Sig Dispense Refill clobetasol (TEMOVATE) 0.05 % ointment Apply 1 application to affected area as directed. TO AFFECTED AREA 1-2 times a week for control of lichen sclerosis. 60 g 3 atenolol (TENORMIN) 50 mg tablet Take 1 tablet by mouth once daily. 90 tablet 3 hydroCHLOROthiazide 25 mg tablet Take 1 tablet by mouth once daily. 90 tablet 1 meloxicam (MOBIC) 15 mg tablet Take 1 tablet by mouth once daily. 90 tablet 1 L.acidophilus-L.rhamnosus (FLORAJEN WOMEN) 15 billion cell capsule Take 1 capsule by mouth once daily. FLORAJEN WOMEN. If on antibiotic, take at least 1-2 hours before or after antibiotic. KEEP REFRIGERATED 30 capsule 11 metFORMIN ER (FORTAMET) 500 mg 24 hr tablet Take 1 tablet by mouth daily with breakfast. May substitute 90 tablet 3 atorvastatin (LIPITOR) 80 mg tablet Take 1 tablet by mouth once daily. 90 tablet 1 blood sugar diagnostic (BLOOD GLUCOSE TEST) test strip Test blood sugar(s) 1 times daily. Dx: Type 2 DM - Controlled E11.9 Insulin: No 50 Strip 11 losartan (COZAAR) 100 mg tablet Take 1 tablet by mouth once daily. 90 tablet 3 Lancets lancets Test blood sugar(s) 1 times daily. Dx: Type 2 DM - Controlled E11.9 Insulin: No 100 Each 11 amLODIPine (NORVASC) 10 mg tablet Take 10 mg by mouth once daily. Going to double check dosage. Cholecalciferol, Vitamin D3, 50 mcg (2,000 unit) cap Take 1 capsule by mouth once daily. aspirin, enteric coated (ASPIRIN, ENTERIC COATED) 81 mg EC tablet Take 81 mg by mouth once daily. FOLIC ACID/MULTIVIT-MIN/LUTEIN (CENTRUM SILVER ORAL) Take by mouth once daily. Biotin 10,000 mcg cap Take 5,000 mcg by mouth once daily. KRILL OIL ORAL Take 800 mg by mouth once daily. estradiol (ESTRACE) 0.01 % (0.1 mg/gram) vaginal cream Use 1 g vaginally two times a week. Insert 1 gm vaginally every night x 14 nights then insert 1 gm vaginally twice weekly 42.5 g 3 Clobetasol taper - compound [facility] Clobetasol 0.07% ointment. Use to affected area twice daily x 4 weeks then at bedtime x 4 weeks then 1-2 times per week. (Patient not taking: Reported on 06/23/2024) 1 Tube 2 No current facility-administered medications for this visit. ALLERGIES: Erythromycin, Miroslava Inhibitors, Carvedilol, Corgard [Nadolol], Diltiazem, Metoprolol, Tetracycline Hcl (Bulk), and Verapamil PERSONAL HISTORY: Social History Tobacco Use Smoking status: Former Current packs/day: 0.00 Types: Cigarettes Quit date: 12/24/2009 Years since quittin.1 Passive exposure: Never Smokeless tobacco: Never Vaping Use Vaping status: (more content not included)... [facility] 02-23-2025 History of Present illness Narrative HISTORY AND PHYSICAL - BREAST COMPLAINT Lisandra Abreu 1955 REFERRING PHYSICIAN: Pedro Jacob MD CHIEF COMPLAINT: Abnormal mammogram (primary encounter diagnosis) HPI: The patient is a 69 year old female with a complaint of an abnormal mammogram. The patient had a mammogram with ultrasound on 02/17/25 which demonstrated : The 0.4 cm lesion in the right breast at 3 o'clock, retroareolar region is suspicious for malignancy. Ultrasound-guided biopsy is recommended. There are multiple additional similar appearing smaller lesion in the subareolar region and inferior breast. Mammographically these appear stable since 11/09/21. Further management of these lesions should be guided by biopsy result. The patient denies a history of breast masses. She does perform a self breast exam routinely. She notes no skin changes. She denies nipple discharge. She notes no axillary masses. She notes no family history of breast problems. She notes no significant breast trauma or breast difficulties in the past. The patient is being seen by me today at the request of Dr. Pedro Jacob MD for my opinion and advice regarding Abnormal mammogram (primary encounter diagnosis). PAST MEDICAL HISTORY Diagnosis Date Arthritis Diabetes (HCC) Family history of colon cancer Hx of colonic polyps Hypertension Lichen sclerosus et atrophicus ELVER (obstructive sleep apnea) uses cpap. sees Dr. Walters. Snoring TIA (transient ischemic attack) 2014 PAST SURGICAL HISTORY Procedure Laterality Date BACK SURGERY HX BREAST BX NEEDLE CORE LEFT Left 06/19/2022 ultrasound guided needle core biopsy left breast BREAST SURGERY HX 07/11/2022 left breast lumpectomy COLONOSCOPY FLX DX W/COLLJ SPEC WHEN PFRMD 08/25/2015 Colonoscopy COLONOSCOPY FLX DX W/COLLJ SPEC WHEN PFRMD 02/25/2020 Colonoscopy 5 yr interval ESOPHAGOGASTRODUODENOSCOPY TRANSORAL DIAGNOSTIC 02/25/2020 esophagitis, intestinal metaplasia on stomach biopsies. Repeat in 2-3 years HAND SURGERY HX several on both hands HYSTERECTOMY HX with subsequent BSO KIDNEY SURGERY HX 1997 left kidney removed from cancer LEFT HEART CATH,PERCUTANEOUS normal per Dr. Cheema TONSILLECTOMY & ADENOIDECTOMY <AGE 10 Current Outpatient Medications Medication Sig Dispense Refill clobetasol (TEMOVATE) 0.05 % ointment Apply 1 application to affected area as directed. TO AFFECTED AREA 1-2 times a week for control of lichen sclerosis. 60 g 3 atenolol (TENORMIN) 50 mg tablet Take 1 tablet by mouth once daily. 90 tablet 3 hydroCHLOROthiazide 25 mg tablet Take 1 tablet by mouth once daily. 90 tablet 1 meloxicam (MOBIC) 15 mg tablet Take 1 tablet by mouth once daily. 90 tablet 1 L.acidophilus-L.rhamnosus (FLORAJEN WOMEN) 15 billion cell capsule Take 1 capsule by mouth once daily. FLORAJEN WOMEN. If on antibiotic, take at least 1-2 hours before or after antibiotic. KEEP REFRIGERATED 30 capsule 11 metFORMIN ER (FORTAMET) 500 mg 24 hr tablet Take 1 tablet by mouth daily with breakfast. May substitute 90 tablet 3 atorvastatin (LIPITOR) 80 mg tablet Take 1 tablet by mouth once daily. 90 tablet 1 blood sugar diagnostic (BLOOD GLUCOSE TEST) test strip Test blood sugar(s) 1 times daily. Dx: Type 2 DM - Controlled E11.9 Insulin: No 50 Strip 11 losartan (COZAAR) 100 mg tablet Take 1 tablet by mouth once daily. 90 tablet 3 Lancets lancets Test blood sugar(s) 1 times daily. Dx: Type 2 DM - Controlled E11.9 Insulin: No 100 Each 11 amLODIPine (NORVASC) 10 mg tablet Take 10 mg by mouth once daily. Going to double check dosage. Cholecalciferol, Vitamin D3, 50 mcg (2,000 unit) cap Take 1 capsule by mouth once daily. aspirin, enteric coated (ASPIRIN, ENTERIC COATED) 81 mg EC tablet Take 81 mg by mouth once daily. FOLIC ACID/MULTIVIT-MIN/LUTEIN (CENTRUM SILVER ORAL) Take by mouth once daily. Biotin 10,000 mcg cap Take 5,000 mcg by mouth once daily. KRILL OIL ORAL Take 800 mg by mouth once daily. estradiol (ESTRACE) 0.01 % (0.1 mg/gram) vaginal cream Use 1 g vaginally two times a week. Insert 1 gm vaginally every night x 14 nights then insert 1 gm vaginally twice weekly 42.5 g 3 Clobetasol taper - compound [facility] Clobetasol 0.07% ointment. Use to affected area twice daily x 4 weeks then at bedtime x 4 weeks then 1-2 times per week. (Patient not taking: Reported on 06/23/2024) 1 Tube 2 No current facility-administered medications for this visit. ALLERGIES: Erythromycin, Miroslava Inhibitors, Carvedilol, Corgard [Nadolol], Diltiazem, Metoprolol, Tetracycline Hcl (Bulk), and Verapamil PERSONAL HISTORY: Social History Tobacco Use Smoking status: Former Current packs/day: 0.00 Types: Cigarettes Quit date: 12/24/2009 Years since quittin.1 Passive exposure: Never Smokeless tobacco: Never Vaping Use Vaping status: Former Substance Use Topics Alcohol use: Not Currently Comment: rarely Drug use: Never FAMILY HISTORY: FAMILY HISTORY Problem Relation Age of Onset Heart disease Mother Emphysema Mother Colon Cancer Father Heart Father Diabetes Brother other (diverticulitis) Maternal Grandmother Heart Attack Maternal Grandmother No Known Problems Maternal Grandfather Diabetes Paternal Grandmother Heart Attack Paternal Grandfather Stroke Paternal Grandfather REVIEW OF SYMPTOMS: PHYSICAL EXAMINATION: General: The patient is 69 year old female, well nourished, well hydrated in no acute distress. The patient is oriented to time, place, and person. VITALS: Blood pressure 120/74, pulse 66, temperature 36.1 C (96.9 F), temperature source Temporal, resp. rate 18, height 167.6 cm (5' 6), weight 126.1 kg (278 lb), SpO2 95%. Body mass index is 44.87 kg/m . HEENT: Normal cephalic, ataumatic, pupils are equally round, sclera are anicteric, mucous membranes are moist, oropharynx is clear. Neck has no masses, asymmetry or lymphadenopathy. Thyroid is unremarkable. Respiratory: Clear to auscultation and percussion. Normal respiratory excursion and pattern. Cardiac: Examination is regular rate and rhythm. Abdominal exam: Soft, nontender, with no palpable masses. No hepatosplenomegaly. No palpable hernias. Rectal exam: exam deferred Extremities: no clubbing, cyanosis or edema. No adenopathy. Breast: Visual inspection reveals no retractions, nipple inversion, or skin changes. Palpation of the right breast reveals no dominant or suspicious masses, but multiple benign-feeling nodules. Palpation of the left breast reveals no dominant or suspicious masses, but multiple benign-feeling nodules. Axillary exam demonstrates no suspicious masses in either the left or right axilla. There is no nipple discharge expressed from either the left or right breast. LABORATORY VALUES: As Noted RADIOLOGIC STUDIES: As Noted Assessment IMPRESSION: Abnormal mammogram (primary encounter diagnosis) PLAN: We will get her scheduled for a a ultrasound guided core biopsy of the right breast to be done by interventional radiology. The planned surgical procedure was discussed extensively with the patient. The risks, benefits, anticipated outcomes and possible complications were mentioned. My staff has also explained the procedure in understandable terms and the patient was given the option to take printed material concerning the planned procedure. The patient had the opportunity to ask questions concerning the planned procedure. The patient freely consents to the planned procedure. Diagnoses: (R92.8) Abnormal mammogram (primary encounter diagnosis) My findings have been communicated to Dr. Pedro Jacob MD via shared medical record. This note will be forwarded to Dr. Pedro Jacob MD. Return to Clinic: The patient is instructed to follow-up with me after the testing has been completed. Chema Templeton III, MD REVIEW OF SYSTEMS: General: The patient notes fatigue, denies weight loss, notes weight gain, denies feeling hot, and denies feelings of cold. Eyes: The patient denies glaucoma, notes eye injury/surgery, wears glasses and contacts. Ear/Nose/Throat: The patient notes allergies, denies hayfever, denies ear infections, and denies bloody noses. Cardiovascular: The patient denies chest pain, denies heart disease, notes high blood pressure,denies cardiac stent, denies prior heart attack, denies irregular heart beat, denies high cholesterol, denies poor circulation, denies heart failure, other cardiac issues, denies claudication, notes cold feet, denies peripheral arterial stent. Respiratory: The patient denies tuberculosis, notes pneumonia, denies frequent cough, denies pulmonary embolism, notes shortness of breath, and denies coughing up blood. Gastrointestinal: The patient denies difficulty swallowing, notes acid reflux, denies ulcers, denies vomiting, denies jaundice/hepatitis, denies gallbladder problems, denies black or tarry stools, denies hemorrhoids, denies bleeding from rectum, denies diverticulitis, denies constipation, denies diarrhea, denies loss of stool control, and notes hernias. Kidney/Bladder: The patient denies kidney stones, denies urine infections, and denies bloody urine. Skin: The patient denies a history of skin cancer, denies bleeding/changing moles, and denies a history of skin rash. Neurologic: The patient denies a history of epilepsy/convulsions, denies headaches, denies head/spinal injuries, and notes stroke/TIA. Psychiatric: The patient denies psychiatric medications, denies depression, and denies voices, denies substance abuse. Endocrine: The patient denies thyroid disorders, notes diabetes, and denies hormonal problems. Hematologic: The patient notes a history of bruising, denies bleeding, and denies anemia, denies blood clots. Infections: The patient notes a history of measles and mumps, denies rheumatic fever, and denies sexually transmitted diseases. Musculoskeletal: The patient notes back pain/injury, notes back problems, notes sciatica, notes knee/foot trouble, notes arthritis, or denies gout. When was patient's last Mammogram screening? 02/17/2025 Last Colonoscopy: N/A Alyssa Willis LPN documented in this encounter [facility] 02-23-2025 Note HNO ID: [id number] Author: ALYSSA WILLIS LPN Service: ? Author Type: LICENSED NURSE Type: Progress Notes Filed: 02/23/2025 14:42 Note Text: REVIEW OF SYSTEMS: General: The patient notes fatigue, denies weight loss, notes weight gain, denies feeling hot, and denies feelings of cold. Eyes: The patient denies glaucoma, notes eye injury/surgery, wears glasses and contacts. Ear/Nose/Throat: The patient notes allergies, denies hayfever, denies ear infections, and denies bloody noses. Cardiovascular: The patient denies chest pain, denies heart disease, notes high blood pressure,denies cardiac stent, denies prior heart attack, denies irregular heart beat, denies high cholesterol, denies poor circulation, denies heart failure, other cardiac issues, denies claudication, notes cold feet, denies peripheral arterial stent. Respiratory: The patient denies tuberculosis, notes pneumonia, denies frequent cough, denies pulmonary embolism, notes shortness of breath, and denies coughing up blood. Gastrointestinal: The patient denies difficulty swallowing, notes acid reflux, denies ulcers, denies vomiting, denies jaundice/hepatitis, denies gallbladder problems, denies black or tarry stools, denies hemorrhoids, denies bleeding from rectum, denies diverticulitis, denies constipation, denies diarrhea, denies loss of stool control, and notes hernias. Kidney/Bladder: The patient denies kidney stones, denies urine infections, and denies bloody urine. Skin: The patient denies a history of skin cancer, denies bleeding/changing moles, and denies a history of skin rash. Neurologic: The patient denies a history of epilepsy/convulsions, denies headaches, denies head/spinal injuries, and notes stroke/TIA. Psychiatric: The patient denies psychiatric medications, denies depression, and denies voices, denies substance abuse. Endocrine: The patient denies thyroid disorders, notes diabetes, and denies hormonal problems. Hematologic: The patient notes a history of bruising, denies bleeding, and denies anemia, denies blood clots. Infections: The patient notes a history of measles and mumps, denies rheumatic fever, and denies sexually transmitted diseases. Musculoskeletal: The patient notes back pain/injury, notes back problems, notes sciatica, notes knee/foot trouble, notes arthritis, or denies gout. When was patient's last Mammogram screening? 02/17/2025 Last Colonoscopy: N/A Alyssa Willis LPN [facility] 02-17-2025 History of Present illness Narrative Radiology Service Progress Note PATIENT NAME: Lisandra Abreu DATE OF SERVICE: February 17, 2025 TIME: 1:22 PM PATIENT IDENTITY VERIFICATION COMPLETED USING TWO (2) IDENTIFIERS: Name and Date of confirmed by patient verbally. FALL SCREENING: Has the patient had 2 falls in the last year or 1 fall with injury or currently using an Ambulatory Assistive Device (Walker, Cane, Wheelchair, Crutches, etc.)? No PATIENT GENDER DATA: Assigned female at . status: : No status: NO. PATIENT RELEVANT IMPLANT DATA REVIEWED: Not Applicable PATIENT PRESENTS WITH AN IMPLANTABLE OR ATTACHED MOLDER FLOOR: No RADIOLOGY DEPARTMENT: Mammography PERIPHERAL IV DATA: Not applicable SIGNED BY: RT Daniel(R) February 17, 2025 1:22 PM documented in this encounter [facility] 02-17-2025 Note HNO ID: [id number] Author: KAYLA GRAFF RT(R) Service: ? Author Type: Technologist Type: Progress Notes Filed: 02/17/2025 13:22 Note Text: Radiology Service Progress Note PATIENT NAME: Lisandra Abreu DATE OF SERVICE: February 17, 2025 TIME: 1:22 PM PATIENT IDENTITY VERIFICATION COMPLETED USING TWO (2) IDENTIFIERS: Name and Date of confirmed by patient verbally. FALL SCREENING: Has the patient had 2 falls in the last year or 1 fall with injury or currently using an Ambulatory Assistive Device (Walker, Cane, Wheelchair, Crutches, etc.)? No PATIENT GENDER DATA: Assigned female at . status: : No status: NO. PATIENT RELEVANT IMPLANT DATA REVIEWED: Not Applicable PATIENT PRESENTS WITH AN IMPLANTABLE OR ATTACHED MOLDER FLOOR: No RADIOLOGY DEPARTMENT: Mammography PERIPHERAL IV DATA: Not applicable SIGNED BY: RT Daniel(R) February 17, 2025 1:22 PM [facility] 01-11-2025 Telephone encounter Note Pt called and is notified of providers results and instructions. Pt voices understanding. Transferred to scheduled to set up appt for additional imaging US and mammogram for R breast. Thalia López RN [facility] 01-11-2025 Miscellaneous Notes Pt called and is notified of providers results and instructions. Pt voices understanding. Transferred to scheduled to set up appt for additional imaging US and mammogram for R breast. Thalia López RN Mammogram needs additional views of the right breast. Please set up. Ordered placed documented in this encounter [facility] 01-11-2025 Telephone encounter Note Mammogram needs additional views of the right breast. Please set up. Ordered placed [facility] 01-07-2025 Note HNO ID: [id number] Author: BINA BANDA Mammo Tech Service: ? Author Type: Household Worker Type: Progress Notes Filed: 01/07/2025 11:43 Note Text: Radiology Service Progress Note PATIENT NAME: Lisandra Abreu DATE OF SERVICE: January 07, 2025 TIME: 11:43 AM PATIENT IDENTITY VERIFICATION COMPLETED USING TWO (2) IDENTIFIERS: Name and Date of confirmed by patient verbally. FALL SCREENING: Has the patient had 2 falls in the last year or 1 fall with injury or currently using an Ambulatory Assistive Device (Walker, Cane, Wheelchair, Crutches, etc.)? No PATIENT GENDER DATA: Assigned female at . status: : No status: NO. PATIENT RELEVANT IMPLANT DATA REVIEWED: Not Applicable PATIENT PRESENTS WITH AN IMPLANTABLE OR ATTACHED MOLDER FLOOR: No RADIOLOGY DEPARTMENT: Mammography PERIPHERAL IV DATA: Not applicable SIGNED BY: Anju Field January 07, 2025 11:43 AM [facility] 01-04-2025 Telephone encounter Note The following approved medication requests have been transmitted electronically. Requested Prescriptions Pending Prescriptions Disp Refills atenolol (TENORMIN) 50 mg tablet 90 tablet 3 Sig: Take 1 tablet by mouth once daily. Aniak Bullock APRN.CNP [facility] 01-04-2025 Miscellaneous Notes The following approved medication requests have been transmitted electronically. Requested Prescriptions Pending Prescriptions Disp Refills atenolol (TENORMIN) 50 mg tablet 90 tablet 3 Sig: Take 1 tablet by mouth once daily. Anika Bullock APRN.CNP Prescription Refill Information The patient has been identified by name and date of : Yes Caregiver verified no other encounters exist for this prescription request: Yes Caregiver confirmed with patient/requestor that no other refills are due, in the near future, with this provider at this time: Yes The last office visit in the department: 08/19/24 Does the patient have a future office visit with this provider/department: Yes Requested Prescriptions Pending Prescriptions Disp Refills atenolol (TENORMIN) 50 mg tablet 90 tablet 3 Sig: Take 1 tablet by mouth once daily. Vianney Blankenship LPN January 04, 2025 2:54 PM documented in this encounter [facility] 01-04-2025 Telephone encounter Note Prescription Refill Information The patient has been identified by name and date of : Yes Caregiver verified no other encounters exist for this prescription request: Yes Caregiver confirmed with patient/requestor that no other refills are due, in the near future, with this provider at this time: Yes The last office visit in the department: 08/19/24 Does the patient have a future office visit with this provider/department: Yes Requested Prescriptions Pending Prescriptions Disp Refills atenolol (TENORMIN) 50 mg tablet 90 tablet 3 Sig: Take 1 tablet by mouth once daily. Vianney Blankenship LPN January 04, 2025 2:54 PM [facility] 01-04-2025 Telephone encounter Note Prescription Refill Information The patient has been identified by name and date of : Yes Caregiver verified no other encounters exist for this prescription request: Yes Caregiver confirmed with patient/requestor that no other refills are due, in the near future, with this provider at this time: Yes The last office visit in the department: 08/19/24 Does the patient have a future office visit with this provider/department: Yes Requested Prescriptions Pending Prescriptions Disp Refills hydroCHLOROthiazide 25 mg tablet 90 tablet 1 Sig: Take 1 tablet by mouth once daily. meloxicam (MOBIC) 15 mg tablet 90 tablet 1 Sig: Take 1 tablet by mouth once daily. Vianney Blankenship LPN January 04, 2025 2:25 PM [facility] 01-04-2025 Miscellaneous Notes Prescription Refill Information The patient has been identified by name and date of : Yes Caregiver verified no other encounters exist for this prescription request: Yes Caregiver confirmed with patient/requestor that no other refills are due, in the near future, with this provider at this time: Yes The last office visit in the department: 08/19/24 Does the patient have a future office visit with this provider/department: Yes Requested Prescriptions Pending Prescriptions Disp Refills hydroCHLOROthiazide 25 mg tablet 90 tablet 1 Sig: Take 1 tablet by mouth once daily. meloxicam (MOBIC) 15 mg tablet 90 tablet 1 Sig: Take 1 tablet by mouth once daily. Vianney Blankenship LPN January 04, 2025 2:25 PM documented in this encounter [facility] 01-04-2025 Telephone encounter Note Last seen for problem visit 07/31/24. Requested Prescriptions Pending Prescriptions Disp Refills clobetasol (TEMOVATE) 0.05 % ointment 60 g 3 Sig: Apply 1 application to affected area as directed. TO AFFECTED AREA 1-2 times a week for control of lichen sclerosis. Beena Davis RN [facility] 01-04-2025 Miscellaneous Notes Last seen for problem visit 07/31/24. Requested Prescriptions Pending Prescriptions Disp Refills clobetasol (TEMOVATE) 0.05 % ointment 60 g 3 Sig: Apply 1 application to affected area as directed. TO AFFECTED AREA 1-2 times a week for control of lichen sclerosis. Beena Davis RN documented in this encounter [facility] 10-12-2024 Telephone encounter Note Last saw AG for problem visit 07/31/24. Requested Prescriptions Pending Prescriptions Disp Refills L.acidophilus-L.rhamnosus (FLORAJEN WOMEN) 15 billion cell capsule 30 capsule 11 Sig: Take 1 capsule by mouth once daily. FLORAJEN WOMEN. If on antibiotic, take at least 1-2 hours before or after antibiotic. KEEP REFRIGERATED Beena Davis RN [facility] 10-12-2024 Miscellaneous Notes Last saw AG for problem visit 07/31/24. Requested Prescriptions Pending Prescriptions Disp Refills L.acidophilus-L.rhamnosus (FLORAJEN WOMEN) 15 billion cell capsule 30 capsule 11 Sig: Take 1 capsule by mouth once daily. FLORAJEN WOMEN. If on antibiotic, take at least 1-2 hours before or after antibiotic. KEEP REFRIGERATED Beena Davis RN documented in this encounter [facility] 10-12-2024 Telephone encounter Note Prescription Refill Information The patient has been identified by name and date of : Yes Caregiver verified no other encounters exist for this prescription request: Yes Caregiver confirmed with patient/requestor that no other refills are due, in the near future, with this provider at this time: Yes The last office visit in the department: 08/2024 Does the patient have a future office visit with this provider/department: Yes 02/2025 Requested Prescriptions Pending Prescriptions Disp Refills metFORMIN ER (FORTAMET) 500 mg 24 hr tablet 90 tablet 3 Sig: Take 1 tablet by mouth daily with breakfast. May substitute atorvastatin (LIPITOR) 80 mg tablet 90 tablet 1 Sig: Take 1 tablet by mouth once daily. Anne Marie Olivas MA October 12, 2024 9:53 AM [facility] 10-12-2024 Miscellaneous Notes Prescription Refill Information The patient has been identified by name and date of : Yes Caregiver verified no other encounters exist for this prescription request: Yes Caregiver confirmed with patient/requestor that no other refills are due, in the near future, with this provider at this time: Yes The last office visit in the department: 08/2024 Does the patient have a future office visit with this provider/department: Yes 02/2025 Requested Prescriptions Pending Prescriptions Disp Refills metFORMIN ER (FORTAMET) 500 mg 24 hr tablet 90 tablet 3 Sig: Take 1 tablet by mouth daily with breakfast. May substitute atorvastatin (LIPITOR) 80 mg tablet 90 tablet 1 Sig: Take 1 tablet by mouth once daily. Anne Marie Olivas MA October 12, 2024 9:53 AM documented in this encounter [facility] 09-25-2024 Telephone encounter Note Please review pt message. Are you willing to prescribe Diflucan for her? Karoline Kidd MA [facility] 09-25-2024 Miscellaneous Notes Please review pt message. Are you willing to prescribe Diflucan for her? Karoline Kidd MA documented in this encounter [facility] 08-24-2024 Telephone encounter Note depict message sent to pt Nat Washington MA August 24, 2024 10:58 AM [facility] 08-24-2024 Miscellaneous Notes [employer] message sent to pt Nat Washington MA August 24, 2024 10:58 AM ----- Message from Anika Bullock sent at 08/21/2024 3:04 PM EST ----- Cholesterol levels look good on the a atorvastatin 80 mg. Continue losartan for kidney protection from diabetes. Diabetes control is stable and acceptable. documented in this encounter [facility] 08-24-2024 Telephone encounter Note ----- Message from Anika Bullock sent at 08/21/2024 3:04 PM EST ----- Cholesterol levels look good on the a atorvastatin 80 mg. Continue losartan for kidney protection from diabetes. Diabetes control is stable and acceptable. [facility] 08-19-2024 Note HNO ID: [id number] Author: PEDRO JACOB MD Service: ? Author Type: Physician Type: Progress Notes Filed: 08/19/2024 10:53 Note Text: Patient presents with: 6 Month Exam HPI: Patient presents today for office visit for follow up. HTN: Patient is compliant with meds Yes Monitors bp at home: Yes. Denies side effects: Yes. Chest pain: No. Dyspnea: stable. Edema: No. Palpitations: No. Syncope: No. Headache: No. Dizziness: No. HYPERLIPIDEMIA: Patient is taking medications: Yes. Patient is watching diet: Yes. Patient denies myalgias: Yes. Patient denies gi upset: Yes DM: Reports overall feeling well. Medication side effects: No. Home sugar check frequency/results:daily once Hypoglycemic spells: No. Watching diet: No. Unexpected weight loss: No. Polyuria, polydipsia: No. Vision Changes: had cataract surgery. Foot lesions or numbness or pain: No. Seeing gi for her liver. Has followed with gi. Sees cardiology and pulmonary Saw rheumatology once. No change in arthritis. No skin issues. Was going to go to [facility] at one point but feels is ok. Red flags for re-assessment reviewed with patient in detail. MEDICATIONS: Current Outpatient Medications Medication Sig estradiol (ESTRACE) 0.01 % (0.1 mg/gram) vaginal cream Use 1 g vaginally two times a week. Insert 1 gm vaginally every night x 14 nights then insert 1 gm vaginally twice weekly hydroCHLOROthiazide 25 mg tablet Take 1 tablet by mouth once daily. meloxicam (MOBIC) 15 mg tablet Take 1 tablet by mouth once daily. atorvastatin (LIPITOR) 80 mg tablet Take 1 tablet by mouth once daily. atenolol (TENORMIN) 50 mg tablet Take 1 tablet by mouth once daily. metFORMIN ER (FORTAMET) 500 mg 24 hr tablet Take 1 tablet by mouth daily with breakfast. May substitute losartan (COZAAR) 100 mg tablet Take 1 tablet by mouth once daily. amLODIPine (NORVASC) 10 mg tablet Take 10 mg by mouth once daily. Going to double check dosage. Cholecalciferol, Vitamin D3, 50 mcg (2,000 unit) cap Take 50 capsules by mouth. aspirin, enteric coated (ASPIRIN, ENTERIC COATED) 81 mg EC tablet Take 81 mg by mouth once daily. FOLIC ACID/MULTIVIT-MIN/LUTEIN (CENTRUM SILVER ORAL) Take by mouth once daily. Biotin 10,000 mcg cap Take 5,000 mcg by mouth once daily. KRILL OIL ORAL Take 800 mg by mouth once daily. BROMSITE 0.075 % drop Use 1 Drop in the right eye once daily. (Patient not taking: Reported on 07/31/2024) metroNIDAZOLE (FLAGYL) 500 mg tablet Take 500 mg by mouth two times a day. fluconazole (DIFLUCAN) 150 mg tablet Take 1 tablet by mouth as directed. Take one tablet on Day 1, 4 and 7. (Patient not taking: Reported on 07/02/2024) clobetasol (TEMOVATE) 0.05 % ointment Apply 1 application to affected area as directed. TO AFFECTED AREA 1-2 times a week for control of lichen sclerosis. blood sugar diagnostic (BLOOD GLUCOSE TEST) test strip Test blood sugar(s) 1 times daily. Dx: Type 2 DM - Controlled E11.9 Insulin: No Lancets lancets Test blood sugar(s) 1 times daily. Dx: Type 2 DM - Controlled E11.9 Insulin: No L. acidophilus-L. rhamnosus 15 billion cell cap Take 1 capsule by mouth once daily. FLORAJEN WOMEN. If on antibiotic, take at least 1-2 hours before or after antibiotic. KEEP REFRIGERATED neomycin/polymyxin B/dexametha ([id number] OPHTHALMIC) Use in eyes as needed. (Patient not taking: Reported on 07/02/2024) Clobetasol taper - compound [facility] Clobetasol 0.07% ointment. Use to affected area twice daily x 4 weeks then at bedtime x 4 weeks then 1-2 times per week. (Patient not taking: Reported on 06/23/2024) No current facility-administered medications for this visit. ALLERGIES: ALLERGIES Allergen Reactions Erythromycin Rash Miroslava Inhibitors Cough Carvedilol Intolerance Slight headache, leg cramps, sweating Corgard [Nadolol] Intolerance Heavy chest, sweating, hot flashes Diltiazem Intolerance Dizzy/ heart thumping, heard to breathe Metoprolol Intolerance Chest tight, hot flash/sweat Tetracycline Hcl (B* Hives blisters Verapamil Intolerance Short of breath, fatigue, indigestion, rash PAST MEDICAL HISTORY Diagnosis Date Arthritis Diabetes (HCC) Family history of colon cancer Hx of colonic polyps Hypertension Lichen sclerosus et atrophicus ELVER (obstructive sleep apnea) uses cpap. sees Dr. Walters. Snoring TIA (transient ischemic attack) 2014 PAST SURGICAL HISTORY Procedure Laterality Date BACK SURGERY HX BREAST BX NEEDLE CORE LEFT Left 06/19/2022 ultrasound guided needle core biopsy left breast BREAST SURGERY HX 07/11/2022 left breast lumpectomy COLONOSCOPY FLX DX W/COLLJ SPEC WHEN PFRMD 08/25/2015 Colonoscopy COLONOSCOPY FLX DX W/COLLJ SPEC WHEN PFRMD 02/25/2020 Colonoscopy 5 yr interval ESOPHAGOGASTRODUODENOSCOPY TRANSORAL DIAGNOSTIC 02/25/2020 esophagitis, intestinal metaplasia on stomach biopsies. Repeat in 2-3 years HAND SURGERY HX sever (more content not included)... [facility] 08-19-2024 History of Present illness Narrative Patient presents with: 6 Month Exam HPI: Patient presents today for office visit for follow up. HTN: Patient is compliant with meds Yes Monitors bp at home: Yes. Denies side effects: Yes. Chest pain: No. Dyspnea: stable. Edema: No. Palpitations: No. Syncope: No. Headache: No. Dizziness: No. HYPERLIPIDEMIA: Patient is taking medications: Yes. Patient is watching diet: Yes. Patient denies myalgias: Yes. Patient denies gi upset: Yes DM: Reports overall feeling well. Medication side effects: No. Home sugar check frequency/results:daily once Hypoglycemic spells: No. Watching diet: No. Unexpected weight loss: No. Polyuria, polydipsia: No. Vision Changes: had cataract surgery. Foot lesions or numbness or pain: No. Seeing gi for her liver. Has followed with gi. Sees cardiology and pulmonary Saw rheumatology once. No change in arthritis. No skin issues. Was going to go to [facility] at one point but feels is ok. Red flags for re-assessment reviewed with patient in detail. MEDICATIONS: Current Outpatient Medications Medication Sig estradiol (ESTRACE) 0.01 % (0.1 mg/gram) vaginal cream Use 1 g vaginally two times a week. Insert 1 gm vaginally every night x 14 nights then insert 1 gm vaginally twice weekly hydroCHLOROthiazide 25 mg tablet Take 1 tablet by mouth once daily. meloxicam (MOBIC) 15 mg tablet Take 1 tablet by mouth once daily. atorvastatin (LIPITOR) 80 mg tablet Take 1 tablet by mouth once daily. atenolol (TENORMIN) 50 mg tablet Take 1 tablet by mouth once daily. metFORMIN ER (FORTAMET) 500 mg 24 hr tablet Take 1 tablet by mouth daily with breakfast. May substitute losartan (COZAAR) 100 mg tablet Take 1 tablet by mouth once daily. amLODIPine (NORVASC) 10 mg tablet Take 10 mg by mouth once daily. Going to double check dosage. Cholecalciferol, Vitamin D3, 50 mcg (2,000 unit) cap Take 50 capsules by mouth. aspirin, enteric coated (ASPIRIN, ENTERIC COATED) 81 mg EC tablet Take 81 mg by mouth once daily. FOLIC ACID/MULTIVIT-MIN/LUTEIN (CENTRUM SILVER ORAL) Take by mouth once daily. Biotin 10,000 mcg cap Take 5,000 mcg by mouth once daily. KRILL OIL ORAL Take 800 mg by mouth once daily. BROMSITE 0.075 % drop Use 1 Drop in the right eye once daily. (Patient not taking: Reported on 07/31/2024) metroNIDAZOLE (FLAGYL) 500 mg tablet Take 500 mg by mouth two times a day. fluconazole (DIFLUCAN) 150 mg tablet Take 1 tablet by mouth as directed. Take one tablet on Day 1, 4 and 7. (Patient not taking: Reported on 07/02/2024) clobetasol (TEMOVATE) 0.05 % ointment Apply 1 application to affected area as directed. TO AFFECTED AREA 1-2 times a week for control of lichen sclerosis. blood sugar diagnostic (BLOOD GLUCOSE TEST) test strip Test blood sugar(s) 1 times daily. Dx: Type 2 DM - Controlled E11.9 Insulin: No Lancets lancets Test blood sugar(s) 1 times daily. Dx: Type 2 DM - Controlled E11.9 Insulin: No L. acidophilus-L. rhamnosus 15 billion cell cap Take 1 capsule by mouth once daily. FLORAJEN WOMEN. If on antibiotic, take at least 1-2 hours before or after antibiotic. KEEP REFRIGERATED neomycin/polymyxin B/dexametha ([id number] OPHTHALMIC) Use in eyes as needed. (Patient not taking: Reported on 07/02/2024) Clobetasol taper - compound [facility] Clobetasol 0.07% ointment. Use to affected area twice daily x 4 weeks then at bedtime x 4 weeks then 1-2 times per week. (Patient not taking: Reported on 06/23/2024) No current facility-administered medications for this visit. ALLERGIES: ALLERGIES Allergen Reactions Erythromycin Rash Miroslava Inhibitors Cough Carvedilol Intolerance Slight headache, leg cramps, sweating Corgard [Nadolol] Intolerance Heavy chest, sweating, hot flashes Diltiazem Intolerance Dizzy/ heart thumping, heard to breathe Metoprolol Intolerance Chest tight, hot flash/sweat Tetracycline Hcl (B* Hives blisters Verapamil Intolerance Short of breath, fatigue, indigestion, rash PAST MEDICAL HISTORY Diagnosis Date Arthritis Diabetes (HCC) Family history of colon cancer Hx of colonic polyps Hypertension Lichen sclerosus et atrophicus ELVER (obstructive sleep apnea) uses cpap. sees Dr. Walters. Snoring TIA (transient ischemic attack) 2014 PAST SURGICAL HISTORY Procedure Laterality Date BACK SURGERY HX BREAST BX NEEDLE CORE LEFT Left 06/19/2022 ultrasound guided needle core biopsy left breast BREAST SURGERY HX 07/11/2022 left breast lumpectomy COLONOSCOPY FLX DX W/COLLJ SPEC WHEN PFRMD 08/25/2015 Colonoscopy COLONOSCOPY FLX DX W/COLLJ SPEC WHEN PFRMD 02/25/2020 Colonoscopy 5 yr interval ESOPHAGOGASTRODUODENOSCOPY TRANSORAL DIAGNOSTIC 02/25/2020 esophagitis, intestinal metaplasia on stomach biopsies. Repeat in 2-3 years HAND SURGERY HX several on both hands HYSTERECTOMY HX with subsequent BSO KIDNEY SURGERY HX 1997 left kidney removed from cancer LEFT HEART CATH,PERCUTANEOUS normal per Dr. Cheema TONSILLECTOMY & ADENOIDECTOMY <AGE 10 FAMILY HISTORY Problem Relation Age of Onset Heart disease Mother Emphysema Mother Colon Cancer Father Heart Father Diabetes Brother other (diverticulitis) Maternal Grandmother Heart Attack Maternal Grandmother No Known Problems Maternal Grandfather Diabetes Paternal Grandmother Heart Attack Paternal Grandfather Stroke Paternal Grandfather Social History Tobacco Use Smoking status: Former Current packs/day: 0.00 Types: Cigarettes Quit date: 12/24/2009 Years since quittin.6 Passive exposure: Never Smokeless tobacco: Never Vaping Use Vaping status: Former Substance Use Topics Alcohol use: Not Currently Comment: rarely Drug use: No Reviewed current medications, allergies, past medical history, surgical history, family history and social history today. REVIEW OF SYSTEMS All other reviewed and negative other than HPI. HEALTH MAINTENANCE: Reviewed health maintenance issues today and recommended the following in detail. BP Controlled (<130/80) Never done RSV Vaccine(1 - Risk 60-74 years 1-dose series) Never done HbA1C due on 08/15/2024 Urine Albumin:Creatinine Ratio due on 08/02/2024 LDL Cholesterol due on 08/02/2024 Diabetic Foot Exam due on 08/02/2024 Mammogram Screening due on 01/06/2025 VITALS: BP 122/74 Pulse 71 Wt 126.1 kg (278 lb) SpO2 96% BMI 45.54 kg/m Last 4 Encounter Wt Readings: Date: Wt: 07/31/2024 124.3 kg (274 lb) 07/02/2024 124.3 kg (274 lb 0.5 oz) 06/23/2024 122.9 kg (271 lb) 02/14/2024 119.3 kg (263 lb) PHYSICAL EXAMINATION: General appearance: Well appearing, alert, in no acute distress, well-hydrated, well nourished. Skin: Skin color, texture, turgor normal, no suspicious rashes or lesions Head: Normocephalic, no masses, lesions, tenderness or abnormalities Eyes: Anicteric sclera. Pupils are equally round and reactive to light. Extraocular movements are intact. Lungs: Lungs clear to auscultation. No wheezing, rhonchi, rales Heart: RRR without murmur, gallop, or rubs. No ectopy Abdomen: Normal abdominal exam, Abdomen soft, non-tender. Bowel sounds normal. No masses, organomegaly Extremities: No deformities, edema, skin discoloration, clubbing or cyanosis. Good capillary refill. Musculoskeletal: No joint swelling, deformity, or tenderness Feet:Shoes and socks removed, No deformities, ulcers, calluses, normal distal pulses, and sensitive to 10 gm monofilament ASSESSMENT/PLAN: 1. Primary hypertension - ICD9: 401.9, ICD10: I10 (primary diagnosis) - Controlled - Continue current medications 2. Controlled type 2 diabetes mellitus without complication, without long-term current use of insulin (HCC) - ICD9: 250.00, ICD10: E11.9 - Controlled - Continue current medications - BLOOD SUGAR DIAGNOSTIC STRIPS - HEMOGLOBIN A1C - ALBUMIN/CREATININE RATIO, URINE 3. Nonobstructive atherosclerosis of coronary artery - ICD9: 414.00, ICD10: I25.10 - LIPID PANEL BASIC 4. Pulmonary HTN (HCC) - ICD9: 416.8, ICD10: I27.20 - stable. 5. Hyperlipidemia, unspecified hyperlipidemia type - ICD9: 272.4, ICD10: E78.5 - Controlled - Continue current medications 6. ELVER (obstructive sleep apnea) - ICD9: 327.23, ICD10: G47.33 -benefiting from treatment. - using cap 7. History of renal cell cancer - ICD9: V10.52, ICD10: Z85.528 - remote 8. Psoriatic arthritis (HCC) - ICD9: 696.0, ICD10: L40.50 - stale. 9. TIA (transient ischemic attack) - ICD9: 435.9, ICD10: G45.9 - stable. 10. Family history of colon cancer - ICD9: V16.0, ICD10: Z80.0 - follow stable. 11. Metabolic dysfunction-associated steatotic liver disease (MASLD) - ICD9: 571.8, ICD10: K76.0 - per gi. 12. Encounter for screening mammogram for malignant neoplasm of breast - ICD9: V76.12, ICD10: Z12.31 - Follow up for annual exam in one year. - NIC SCREENING Pedro Jacob MD documented in this encounter [facility] 07-31-2024 Instructions Lindsey Traylor APRN.[facility] - 07/31/2024 11:52 AM EST Insert 1 gm vaginally every night x 14 nights then insert 1 gm vaginally twice weekly. Make sure to apply some of the medication to vaginal opening and inner vulva. documented in this encounter [facility] 07-31-2024 Note HNO ID: [id number] Author: LINDSEY TRAYLOR APRN.[facility] Service: ? Author Type: Nurse Practitioner Type: Progress Notes Filed: 07/31/2024 21:01 Note Text: Field Spec offered: Patient declines. Lisandra Abreu is a 68 year old female who presents for problem visit follow-up BV, LS HPI: Lisandra here for follow-up from visit on 06/23/2024. She was treated for BV with oral metronidazole,fluconazole 3 doses and Monistat 7 to perineum and perianal skin. She has lichen sclerosus and using clobetasol twice a week. No symptoms resolved with any treatment. Did not notice any improvement with completion of antibiotic or fluconazole. No itching. No discharge. Continues with constant uncomfortable almost burning feeling to vaginal opening. Weaing pants is very uncomfortable. Does have sensitivities to fragrances and uses hypoallergenic laundry products, uses Dove bar soap for Sensitive skin. Occasional stress incontinence - does not wear protection. Hysterectomy for boggy uterus. No known abnormal Pap. OB History T0 L3 SAB0 IAB0 Ectopic0 Multiple0 Live Births0 Emergency Medical Dispatcher History LMP: Hysterectomy Age at Menarche: Age at First : Age at Menopause: Emergency Medical Dispatcher History Comments: Sexual Activity: Not Currently; No partner data on record Contraception: Surgical PAST MEDICAL HISTORY Diagnosis Date Arthritis Diabetes (HCC) Family history of colon cancer Hx of colonic polyps Hypertension Lichen sclerosus et atrophicus ELVER (obstructive sleep apnea) uses cpap. sees Dr. Walters. Snoring TIA (transient ischemic attack) 2014 PAST SURGICAL HISTORY Procedure Laterality Date BACK SURGERY HX BREAST BX NEEDLE CORE LEFT Left 06/19/2022 ultrasound guided needle core biopsy left breast BREAST SURGERY HX 07/11/2022 left breast lumpectomy COLONOSCOPY FLX DX W/COLLJ SPEC WHEN PFRMD 08/25/2015 Colonoscopy COLONOSCOPY FLX DX W/COLLJ SPEC WHEN PFRMD 02/25/2020 Colonoscopy 5 yr interval ESOPHAGOGASTRODUODENOSCOPY TRANSORAL DIAGNOSTIC 02/25/2020 esophagitis, intestinal metaplasia on stomach biopsies. Repeat in 2-3 years HAND SURGERY HX several on both hands HYSTERECTOMY HX with subsequent BSO KIDNEY SURGERY HX 1997 left kidney removed from cancer LEFT HEART CATH,PERCUTANEOUS normal per Dr. Cheema TONSILLECTOMY AND ADENOIDECTOMY FAMILY HISTORY Problem Relation Age of Onset Heart disease Mother Emphysema Mother Colon Cancer Father Heart Father Diabetes Brother other (diverticulitis) Maternal Grandmother Heart Attack Maternal Grandmother No Known Problems Maternal Grandfather Diabetes Paternal Grandmother Heart Attack Paternal Grandfather Stroke Paternal Grandfather Social History Tobacco Use Smoking status: Former Current packs/day: 0.00 Types: Cigarettes Quit date: 12/24/2009 Years since quittin.6 Passive exposure: Never Smokeless tobacco: Never Vaping Use Vaping status: Former Substance Use Topics Alcohol use: Not Currently Comment: rarely Drug use: No Current Outpatient Medications Medication Sig hydroCHLOROthiazide 25 mg tablet Take 1 tablet by mouth once daily. meloxicam (MOBIC) 15 mg tablet Take 1 tablet by mouth once daily. BROMSITE 0.075 % drop Use 1 Drop in the right eye once daily. metroNIDAZOLE (FLAGYL) 500 mg tablet Take 500 mg by mouth two times a day. fluconazole (DIFLUCAN) 150 mg tablet Take 1 tablet by mouth as directed. Take one tablet on Day 1, 4 and 7. (Patient not taking: Reported on 07/02/2024) atorvastatin (LIPITOR) 80 mg tablet Take 1 tablet by mouth once daily. clobetasol (TEMOVATE) 0.05 % ointment Apply 1 application to affected area as directed. TO AFFECTED AREA 1-2 times a week for control of lichen sclerosis. atenolol (TENORMIN) 50 mg tablet Take 1 tablet by mouth once daily. metFORMIN ER (FORTAMET) 500 mg 24 hr tablet Take 1 tablet by mouth daily with breakfast. May substitute blood sugar diagnostic (BLOOD GLUCOSE TEST) test strip Test blood sugar(s) 1 times daily. Dx: Type 2 DM - Controlled E11.9 Insulin: No losartan (COZAAR) 100 mg tablet Take 1 tablet by mouth once daily. Lancets lancets Test blood sugar(s) 1 times daily. Dx: Type 2 DM - Controlled E11.9 Insulin: No L. acidophilus-L. rhamnosus 15 billion cell cap Take 1 capsule by mouth once daily. [facility]OMEN. If on antibiotic, take at least 1-2 hours before or after antibiotic. KEEP REFRIGERATED amLODIPine (NORVASC) 10 mg tablet Take 10 mg by mouth once daily. Going to double check dosage. neomycin/polymyxin B/dexametha (DUPSHLAC-VVSMXENCI-FKFKYRMX OPHTHALMIC) Use in eyes as needed. (Patient not taking: Reported on 07/02/2024) Cholecalciferol, Vitamin D3, 50 mcg (2,000 unit) cap Take 50 capsules by mouth. aspirin, enteric coated (ASPIRIN, ENTERIC COATED) 81 mg EC tablet Take 81 mg by mouth once daily. Clobetasol taper - compound H Clobetasol 0.07% ointment. Use to affected area twice daily x 4 weeks then a (more content not included)... [facility] 07-31-2024 History of Present illness Narrative Field Spec offered: Patient declines. Lisandra Abreu is a 68 year old female who presents for problem visit follow-up BV, LS HPI: Lisandra here for follow-up from visit on 06/23/2024. She was treated for BV with oral metronidazole,fluconazole 3 doses and Monistat 7 to perineum and perianal skin. She has lichen sclerosus and using clobetasol twice a week. No symptoms resolved with any treatment. Did not notice any improvement with completion of antibiotic or fluconazole. No itching. No discharge. Continues with constant uncomfortable almost burning feeling to vaginal opening. Weaing pants is very uncomfortable. Does have sensitivities to fragrances and uses hypoallergenic laundry products, uses Dove bar soap for Sensitive skin. Occasional stress incontinence - does not wear protection. Hysterectomy for boggy uterus. No known abnormal Pap. OB History T0 L3 SAB0 IAB0 Ectopic0 Multiple0 Live Births0 Emergency Medical Dispatcher History LMP: Hysterectomy Age at Menarche: Age at First : Age at Menopause: Emergency Medical Dispatcher History Comments: Sexual Activity: Not Currently; No partner data on record Contraception: Surgical PAST MEDICAL HISTORY Diagnosis Date Arthritis Diabetes (HCC) Family history of colon cancer Hx of colonic polyps Hypertension Lichen sclerosus et atrophicus ELVER (obstructive sleep apnea) uses cpap. sees Dr. Walters. Snoring TIA (transient ischemic attack) 2014 PAST SURGICAL HISTORY Procedure Laterality Date BACK SURGERY HX BREAST BX NEEDLE CORE LEFT Left 06/19/2022 ultrasound guided needle core biopsy left breast BREAST SURGERY HX 07/11/2022 left breast lumpectomy COLONOSCOPY FLX DX W/COLLJ SPEC WHEN PFRMD 08/25/2015 Colonoscopy COLONOSCOPY FLX DX W/COLLJ SPEC WHEN PFRMD 02/25/2020 Colonoscopy 5 yr interval ESOPHAGOGASTRODUODENOSCOPY TRANSORAL DIAGNOSTIC 02/25/2020 esophagitis, intestinal metaplasia on stomach biopsies. Repeat in 2-3 years HAND SURGERY HX several on both hands HYSTERECTOMY HX with subsequent BSO KIDNEY SURGERY HX 1997 left kidney removed from cancer LEFT HEART CATH,PERCUTANEOUS normal per Dr. Cheema TONSILLECTOMY & ADENOIDECTOMY <AGE 10 FAMILY HISTORY Problem Relation Age of Onset Heart disease Mother Emphysema Mother Colon Cancer Father Heart Father Diabetes Brother other (diverticulitis) Maternal Grandmother Heart Attack Maternal Grandmother No Known Problems Maternal Grandfather Diabetes Paternal Grandmother Heart Attack Paternal Grandfather Stroke Paternal Grandfather Social History Tobacco Use Smoking status: Former Current packs/day: 0.00 Types: Cigarettes Quit date: 12/24/2009 Years since quittin.6 Passive exposure: Never Smokeless tobacco: Never Vaping Use Vaping status: Former Substance Use Topics Alcohol use: Not Currently Comment: rarely Drug use: No Current Outpatient Medications Medication Sig hydroCHLOROthiazide 25 mg tablet Take 1 tablet by mouth once daily. meloxicam (MOBIC) 15 mg tablet Take 1 tablet by mouth once daily. BROMSITE 0.075 % drop Use 1 Drop in the right eye once daily. metroNIDAZOLE (FLAGYL) 500 mg tablet Take 500 mg by mouth two times a day. fluconazole (DIFLUCAN) 150 mg tablet Take 1 tablet by mouth as directed. Take one tablet on Day 1, 4 and 7. (Patient not taking: Reported on 07/02/2024) atorvastatin (LIPITOR) 80 mg tablet Take 1 tablet by mouth once daily. clobetasol (TEMOVATE) 0.05 % ointment Apply 1 application to affected area as directed. TO AFFECTED AREA 1-2 times a week for control of lichen sclerosis. atenolol (TENORMIN) 50 mg tablet Take 1 tablet by mouth once daily. metFORMIN ER (FORTAMET) 500 mg 24 hr tablet Take 1 tablet by mouth daily with breakfast. May substitute blood sugar diagnostic (BLOOD GLUCOSE TEST) test strip Test blood sugar(s) 1 times daily. Dx: Type 2 DM - Controlled E11.9 Insulin: No losartan (COZAAR) 100 mg tablet Take 1 tablet by mouth once daily. Lancets lancets Test blood sugar(s) 1 times daily. Dx: Type 2 DM - Controlled E11.9 Insulin: No L. acidophilus-L. rhamnosus 15 billion cell cap Take 1 capsule by mouth once daily. [facility]OM[employer]. If on antibiotic, take at least 1-2 hours before or after antibiotic. KEEP REFRIGERATED amLODIPine (NORVASC) 10 mg tablet Take 10 mg by mouth once daily. Going to double check dosage. neomycin/polymyxin B/dexametha (ERLTAEOG-NOWHITGVX-IKBKHZAA OPHTHALMIC) Use in eyes as needed. (Patient not taking: Reported on 07/02/2024) Cholecalciferol, Vitamin D3, 50 mcg (2,000 unit) cap Take 50 capsules by mouth. aspirin, enteric coated (ASPIRIN, ENTERIC COATED) 81 mg EC tablet Take 81 mg by mouth once daily. Clobetasol taper - compound [facility] Clobetasol 0.07% ointment. Use to affected area twice daily x 4 weeks then at bedtime x 4 weeks then 1-2 times per week. (Patient not taking: Reported on 06/23/2024) FOLIC ACID/MULTIVIT-MIN/LUTEIN (CENTRUM SILVER ORAL) Take by mouth once daily. Biotin 10,000 mcg cap Take 5,000 mcg by mouth once daily. KRILL OIL ORAL Take 800 mg by mouth once daily. No current facility-administered medications for this visit. Allergies As of Date: 07/31/2024 Allergen Noted Reaction ERYTHROMYCIN 02/20/2017 Rash MIROSLAVA INHIBITORS 07/13/2021 Cough ATENOLOL 07/13/2021 Intolerance CARVEDILOL 07/13/2021 Intolerance CORGARD [NADOLOL] 07/13/2021 Intolerance DILTIAZEM 07/13/2021 Intolerance METOPROLOL 07/13/2021 Intolerance TETRACYCLINE HCL (BULK) 08/22/2015 Hives VERAPAMIL 07/13/2021 Intolerance Fully Assessed 07/02/2024 REVIEW OF SYSTEMS Bladder: No dysuria, gross hematuria, urinary frequency, urinary urgency, or incontinence. Allergies and current medication updated:Yes SENSITIVE EXAM: The sensitive examination was discussed with the Patient or Patient's Authorized Chief Scientific Officer. As applicable, any other physician, advance practice provider, medical student, or other health professional student that will be observing or involved in the sensitive examination for educational or training purposes was discussed with the Patient or Authorized Chief Scientific Officer. The Patient or Authorized Chief Scientific Officer has agreed to proceed with the sensitive examination. (Sensitive examination includes inspection and/or palpation of the breasts, pelvis, prostate and anorectal regions). EXAM: BP 136/82 Wt 274 lb (124.3kg) GENERAL: pleasant, female in no apparent distress CHEST: Normal inspiratory effort ABDOMEN: soft, non-tender, and no masses PELVIC: Vaginal discharge and perineal/perianal skin yeast resolved. Inner vulva erythematous bilaterally with scant amount white adherent discharge to inner right vulva which is tender when removed. Tenderness to posterior introitus with palpation and insertion of small speculum. Fissure at fourchette. LS well-controlled with minimal hypopigmentation and no plaques. Postmenopausal vaginitis - vaginal gonzales flat with loss of rugae, patchy redness NEURO: alert and oriented x3,exam grossly non-focal ASSESSMENT/PLAN: 1. Chronic vulvitis - ICD9: 616.10, ICD10: N76.3 (primary diagnosis) Treated for BV and yeast 6 weeks ago with no improvement in symptoms although vaginal discharge has resolved and perineal/perianal skin yeast has resolved. Small amount right vulvar discharge and bilateral inner vulvitis continues. - ESTRADIOL 0.01% (0.1 MG/GRAM) VAGINAL CREAM 2. Postmenopausal atrophic vaginitis - ICD9: 627.3, ICD10: N95.2 - Able to appreciate with resolution of vaginal discharge - ESTRADIOL 0.01% (0.1 MG/GRAM) VAGINAL CREAM 3. Lichen sclerosus - ICD9: 701.0, ICD10: L90.0 - well-controlled - Continue clobetasol twice a week Discussed vulvar biopsy today vs treating with estrace cream and doing vulvar biopsy if symptoms do not significantly improve. She prefers to try estrace vaginal cream first. She has skin sensitivities - we discussed ensuring that all skin products are hypoallergenic. Only occasional stress incontinence and she does not wear a pad. Follow-up in 3 months and as needed. Lindsey Traylor APRN.CNP Medical Decision Making: Problems: Moderate: 1+ chronic illnesses with change Risk: Moderate: Drug management and Moderate risk from testing/treatment Medical Decision Making Level: 4 - Moderate documented in this encounter [facility] 07-16-2024 Telephone encounter Note The following approved medication requests have been transmitted electronically. Requested Prescriptions Pending Prescriptions Disp Refills hydroCHLOROthiazide 25 mg tablet 90 tablet 1 Sig: Take 1 tablet by mouth once daily. meloxicam (MOBIC) 15 mg tablet 90 tablet 1 Sig: Take 1 tablet by mouth once daily. Anika Bullock APRN.CNP [facility] 07-16-2024 Miscellaneous Notes The following approved medication requests have been transmitted electronically. Requested Prescriptions Pending Prescriptions Disp Refills hydroCHLOROthiazide 25 mg tablet 90 tablet 1 Sig: Take 1 tablet by mouth once daily. meloxicam (MOBIC) 15 mg tablet 90 tablet 1 Sig: Take 1 tablet by mouth once daily. Anika Bullock APRN.CNP Prescription Refill Information The patient has been identified by name and date of : Yes Caregiver verified no other encounters exist for this prescription request: Yes Caregiver confirmed with patient/requestor that no other refills are due, in the near future, with this provider at this time: Yes The last office visit in the department: 02/14/24 Does the patient have a future office visit with this provider/department: Yes 08/19/24 Requested Prescriptions Pending Prescriptions Disp Refills hydroCHLOROthiazide 25 mg tablet 90 tablet 1 Sig: Take 1 tablet by mouth once daily. meloxicam (MOBIC) 15 mg tablet 90 tablet 1 Sig: Take 1 tablet by mouth once daily. Brandi Cosby LPN July 16, 2024 2:02 PM documented in this encounter [facility] 07-16-2024 Telephone encounter Note Prescription Refill Information The patient has been identified by name and date of : Yes Caregiver verified no other encounters exist for this prescription request: Yes Caregiver confirmed with patient/requestor that no other refills are due, in the near future, with this provider at this time: Yes The last office visit in the department: 02/14/24 Does the patient have a future office visit with this provider/department: Yes 08/19/24 Requested Prescriptions Pending Prescriptions Disp Refills hydroCHLOROthiazide 25 mg tablet 90 tablet 1 Sig: Take 1 tablet by mouth once daily. meloxicam (MOBIC) 15 mg tablet 90 tablet 1 Sig: Take 1 tablet by mouth once daily. Brandi Cosby LPN July 16, 2024 2:02 PM [facility] 07-02-2024 History of Present illness Narrative NAME: Lisandra Abreu [facility] NO: [id number] REFERRING PHYSICIAN: Olga Valdovinos PRESENTING COMPLAINT: Follow up MASLD HPI: Lisandra Abreu is a pleasant 68 year old female is here on follow up for MASLD. . Complications of liver disease include none. PMHx includes CHF, HLD, HTN, Pulmonary HTN, ELVER, DM Type II, psoriasis, Lichen sclerosus and obesity. S/p nephrectomy kidney Ca, no chemo or radiation. ERNIE 12/26/2023. She is with her today. From last visit note: US Abd RUQ Today: Hepatic steatosis HGB A1C 5.8; metformin Fibroscan today: kPa 6.4, CAP 159 (prior was kPa 13.5, CAP 365) Has gained some weight back Has not been exercising. Has been bad with carbs recent Interval Hx: Labs: LFTs WNL, synthetic liver function is preserved Past liver biopsy: bridging fibrosis Tired a lot No weight loss No exercise Patient denies RUQ pain, shortness of breath, signs of fluid retention, fever, chills, nausea, jaundice, dark colored urine, pale colored stools, hematemesis, melena, decreased appetite, muscle wasting, confusion, weight loss Lengthy discussion regarding past biopsy results and advanced fibrosis. With no change in metabolic risk factors, fibrosis is likely to proceed to cirrhosis. Will continue to monitor REVIEW OF SYSTEMS GENERAL: No unexplained weight changes or fevers. HEENT: Negative for severe headaches, negative for changes in hearing or vision. NECK: Negative for lumps, masses or pain. RESPIRATORY: Negative for coughing, wheezing or significant dyspnea. CARDIOVASCULAR: Negative for chest pain or heart palpitations. GASTROINTESTINAL: Negative for rectal bleeding or black tarry stools. GENITOURINARY: Negative for dysuria or urinary incontinence. MUSCULOSKELETAL: Negative for unexplained joint pains, dislocations or fractures. NEUROLOGIC: Negative for unexplained weakness or vertigo. SKIN: Negative for new lesions or rashes. ENDOCRINE: Negative for cold or heat intolerance . Current Outpatient Medications Medication Sig Dispense Refill metroNIDAZOLE (FLAGYL) 500 mg tablet Take 1 tablet by mouth two times a day for 7 days. 14 tablet 0 fluconazole (DIFLUCAN) 150 mg tablet Take 1 tablet by mouth as directed. Take one tablet on Day 1, 4 and 7. 3 tablet 0 atorvastatin (LIPITOR) 80 mg tablet Take 1 tablet by mouth once daily. 90 tablet 1 clobetasol (TEMOVATE) 0.05 % ointment Apply 1 application to affected area as directed. TO AFFECTED AREA 1-2 times a week for control of lichen sclerosis. 60 g 3 hydroCHLOROthiazide 25 mg tablet Take 1 tablet by mouth once daily. 90 tablet 1 meloxicam (MOBIC) 15 mg tablet Take 1 tablet by mouth once daily. 90 tablet 1 atenolol (TENORMIN) 50 mg tablet Take 1 tablet by mouth once daily. 90 tablet 3 metFORMIN ER (FORTAMET) 500 mg 24 hr tablet Take 1 tablet by mouth daily with breakfast. May substitute 90 tablet 3 blood sugar diagnostic (BLOOD GLUCOSE TEST) test strip Test blood sugar(s) 1 times daily. Dx: Type 2 DM - Controlled E11.9 Insulin: No 50 Strip 11 losartan (COZAAR) 100 mg tablet Take 1 tablet by mouth once daily. 90 tablet 3 Lancets lancets Test blood sugar(s) 1 times daily. Dx: Type 2 DM - Controlled E11.9 Insulin: No 100 Each 11 L. acidophilus-L. rhamnosus 15 billion cell cap Take 1 capsule by mouth once daily. [facility]OMEN. If on antibiotic, take at least 1-2 hours before or after antibiotic. KEEP REFRIGERATED 30 capsule 11 amLODIPine (NORVASC) 10 mg tablet Take 10 mg by mouth once daily. Going to double check dosage. neomycin/polymyxin B/dexametha (HQMWSPBY-NUPYTRBOZ-RWSJETRZ OPHTHALMIC) Use in eyes as needed. Cholecalciferol, Vitamin D3, 50 mcg (2,000 unit) cap Take 50 capsules by mouth. aspirin, enteric coated (ASPIRIN, ENTERIC COATED) 81 mg EC tablet Take 81 mg by mouth once daily. Clobetasol taper - compound [facility] Clobetasol 0.07% ointment. Use to affected area twice daily x 4 weeks then at bedtime x 4 weeks then 1-2 times per week. (Patient not taking: Reported on 06/23/2024) 1 Tube 2 FOLIC ACID/MULTIVIT-MIN/LUTEIN (CENTRUM SILVER ORAL) Take by mouth once daily. Biotin 10,000 mcg cap Take 5,000 mcg by mouth once daily. KRILL OIL ORAL Take 800 mg by mouth once daily. No current facility-administered medications for this visit. ALLERGIES Allergen Reactions Erythromycin Rash Miroslava Inhibitors Cough Atenolol Intolerance Sweating, hard time breathing Carvedilol Intolerance Slight headache, leg cramps, sweating Corgard [Nadolol] Intolerance Heavy chest, sweating, hot flashes Diltiazem Intolerance Dizzy/ heart thumping, heard to breathe Metoprolol Intolerance Chest tight, hot flash/sweat Tetracycline Hcl (B* Hives blisters Verapamil Intolerance Short of breath, fatigue, indigestion, rash Social History Tobacco Use Smoking status: Former Current packs/day: 0.00 Types: Cigarettes Quit date: 12/24/2009 Years since quittin.5 Passive exposure: Never Smokeless tobacco: Never Vaping Use Vaping status: Former Substance Use Topics Alcohol use: Not Currently Comment: rarely Drug use: No PAST MEDICAL HISTORY Diagnosis Date Arthritis Diabetes (HCC) Family history of colon cancer Hx of colonic polyps Hypertension Lichen sclerosus et atrophicus ELVER (obstructive sleep apnea) uses cpap. sees Dr. Walters. Snoring TIA (transient ischemic attack) 2015 @[facility]@ FAMILY HISTORY Problem Relation Age of Onset Heart disease Mother Emphysema Mother Colon Cancer Father Heart Father Diabetes Brother other (diverticulitis) Maternal Grandmother Heart Attack Maternal Grandmother No Known Problems Maternal Grandfather Diabetes Paternal Grandmother Heart Attack Paternal Grandfather Stroke Paternal Grandfather PHYSICAL EXAM 07/02/24 1012 BP: 120/58 BP Site: Left Arm BP Position: Sitting BP Cuff Size: Large Adult Pulse: (!) 56 Temp: 36.2 C (97.2 F) TempSrc: Temporal SpO2: 97% Weight: 124.3 kg (274 lb 0.5 oz) Height: 166.4 cm (5' 5.51) General Appearance: Well appearing, alert, in no acute distress, well-hydrated, well nourished. Eyes: Conjunctiva and sclera normal Oropharynx: Lips, tongue, and oral mucosa normal. There is no thrush or oral ulcers. Abdomen: not distended Extremities: no cyanosis or edema Skin: no jaundice, no spider angiomas, no palmar erythema Neuro:alert, oriented x 3, pleasant and in no acute distress Recent Labs: Hemoglobin (g/dL) Date Value 06/25/2024 13.9 07/20/2021 14.3 Hematocrit (%) Date Value 06/25/2024 44.3 07/20/2021 45.0 WBC (k/uL) Date Value 06/25/2024 8.21 07/20/2021 7.69 Glucose (mg/dL) Date Value 06/25/2024 102 07/20/2021 120 Potassium (mmol/L) Date Value 06/25/2024 4.0 07/20/2021 4.2 Sodium (mmol/L) Date Value 06/25/2024 140 07/20/2021 139 Chloride (mmol/L) Date Value 06/25/2024 100 07/20/2021 101 CO2 (mmol/L) Date Value 06/25/2024 27 07/20/2021 21 Creatinine (mg/dL) Date Value 06/25/2024 0.96 07/20/2021 0.94 BUN (mg/dL) Date Value 06/25/2024 25 07/20/2021 19 Anion Gap (mmol/L) Date Value 06/25/2024 13 07/20/2021 17 Calcium (mg/dL) Date Value 07/20/2021 10.1 Calcium, Total (mg/dL) Date Value 06/25/2024 10.0 Albumin (g/dL) Date Value 06/25/2024 4.8 Bilirubin, Total (mg/dL) Date Value 06/25/2024 0.6 Bilirubin, Direct (mg/dL) Date Value 08/16/2022 <0.2 Alkaline Phosphatase (U/L) Date Value 06/25/2024 101 AST (U/L) Date Value 06/25/2024 32 ALT (U/L) Date Value 06/25/2024 38 Protein, Total (g/dL) Date Value 06/25/2024 7.7 MELD 3.0: 7 at 06/25/2024 12:52 PM MELD-Na: 6 at 06/25/2024 12:52 PM Calculated from: Serum Creatinine: 0.96 mg/dL (Using min of 1 mg/dL) at 06/25/2024 12:52 PM Serum Sodium: 140 mmol/L (Using max of 137 mmol/L) at 06/25/2024 12:52 PM Total Bilirubin: 0.6 mg/dL (Using min of 1 mg/dL) at 06/25/2024 12:52 PM Serum Albumin: 4.8 g/dL (Using max of 3.5 g/dL) at 06/25/2024 12:52 PM INR(ratio): 1.0 at 06/25/2024 12:52 PM Age at listing (hypothetical): 68 years Sex: Female at 06/25/2024 12:52 PM Imaging: RUQ Ultrasound: Today Assessment IMPRESSION -Reviewed available labs and imaging with the patient -Discussed the natural history of liver disease, up to and including cirrhosis -Discussed the natural history of fatty liver, risk factors and the possibility of progression to cirrhosis -Discussed metabolic syndrome, risk factors, the importance of control of MES risk factors -Discussed Hepatic fibrosis/steatosis staging: Fibroscan, specific to the patient's Fibroscan results -Discussed the effect of alcohol use on liver enzymes and the liver -Discussed a healthy, Mediterranean diet with lean proteins, fresh fruits and vegetables, low carb and low sugar -Discussed regular aerobic exercise as tolerated with a goal of 40-45 minutes per day at least 5 days per week PLAN (K74.02) Hepatic fibrosis, advanced fibrosis (primary encounter diagnosis) -Consult to nutrition therapy -CMP, CBC, PT and AFP for liver enzymes, function and HCC screening (advanced fibrosis) -US Abd RUQ for hepatic morphology -Weight loss very important -Maintain a healthy diet -Regular exercise -Work with your PCP to control MES risk factors -Current goal, stop further fibrosis progression Follow up in 6 months. Please contact sooner if you have questions or problems develop. Olga Valdovinos APRN.CNP July 01, 2024 7:00 AM documented in this encounter [facility] 07-02-2024 Note HNO ID: [id number] Author: OLGA VALDOVINOS APRN.CNP Service: ? Author Type: Nurse Practitioner Type: Progress Notes Filed: 07/04/2024 08:53 Note Text: NAME: Lisandra Abreu CLINIC NO: [id number] REFERRING PHYSICIAN: Olga Valdovinos PRESENTING COMPLAINT: Follow up MASLD HPI: Lisandra Abreu is a pleasant 68 year old female is here on follow up for MASLD. . Complications of liver disease include none. PMHx includes CHF, HLD, HTN, Pulmonary HTN, ELVER, DM Type II, psoriasis, Lichen sclerosus and obesity. S/p nephrectomy kidney Ca, no chemo or radiation. ERNIE 12/26/2023. She is with her today. From last visit note: US Abd RUQ Today: Hepatic steatosis HGB A1C 5.8; metformin Fibroscan today: kPa 6.4, CAP 159 (prior was kPa 13.5, CAP 365) Has gained some weight back Has not been exercising. Has been bad with carbs recent Interval Hx: Labs: LFTs WNL, synthetic liver function is preserved Past liver biopsy: bridging fibrosis Tired a lot No weight loss No exercise Patient denies RUQ pain, shortness of breath, signs of fluid retention, fever, chills, nausea, jaundice, dark colored urine, pale colored stools, hematemesis, melena, decreased appetite, muscle wasting, confusion, weight loss Lengthy discussion regarding past biopsy results and advanced fibrosis. With no change in metabolic risk factors, fibrosis is likely to proceed to cirrhosis. Will continue to monitor REVIEW OF SYSTEMS GENERAL: No unexplained weight changes or fevers. HEENT: Negative for severe headaches, negative for changes in hearing or vision. NECK: Negative for lumps, masses or pain. RESPIRATORY: Negative for coughing, wheezing or significant dyspnea. CARDIOVASCULAR: Negative for chest pain or heart palpitations. GASTROINTESTINAL: Negative for rectal bleeding or black tarry stools. GENITOURINARY: Negative for dysuria or urinary incontinence. MUSCULOSKELETAL: Negative for unexplained joint pains, dislocations or fractures. NEUROLOGIC: Negative for unexplained weakness or vertigo. SKIN: Negative for new lesions or rashes. ENDOCRINE: Negative for cold or heat intolerance . Current Outpatient Medications Medication Sig Dispense Refill metroNIDAZOLE (FLAGYL) 500 mg tablet Take 1 tablet by mouth two times a day for 7 days. 14 tablet 0 fluconazole (DIFLUCAN) 150 mg tablet Take 1 tablet by mouth as directed. Take one tablet on Day 1, 4 and 7. 3 tablet 0 atorvastatin (LIPITOR) 80 mg tablet Take 1 tablet by mouth once daily. 90 tablet 1 clobetasol (TEMOVATE) 0.05 % ointment Apply 1 application to affected area as directed. TO AFFECTED AREA 1-2 times a week for control of lichen sclerosis. 60 g 3 hydroCHLOROthiazide 25 mg tablet Take 1 tablet by mouth once daily. 90 tablet 1 meloxicam (MOBIC) 15 mg tablet Take 1 tablet by mouth once daily. 90 tablet 1 atenolol (TENORMIN) 50 mg tablet Take 1 tablet by mouth once daily. 90 tablet 3 metFORMIN ER (FORTAMET) 500 mg 24 hr tablet Take 1 tablet by mouth daily with breakfast. May substitute 90 tablet 3 blood sugar diagnostic (BLOOD GLUCOSE TEST) test strip Test blood sugar(s) 1 times daily. Dx: Type 2 DM - Controlled E11.9 Insulin: No 50 Strip 11 losartan (COZAAR) 100 mg tablet Take 1 tablet by mouth once daily. 90 tablet 3 Lancets lancets Test blood sugar(s) 1 times daily. Dx: Type 2 DM - Controlled E11.9 Insulin: No 100 Each 11 L. acidophilus-L. rhamnosus 15 billion cell cap Take 1 capsule by mouth once daily. FLORAJEN WOMEN. If on antibiotic, take at least 1-2 hours before or after antibiotic. KEEP REFRIGERATED 30 capsule 11 amLODIPine (NORVASC) 10 mg tablet Take 10 mg by mouth once daily. Going to double check dosage. neomycin/polymyxin B/dexametha ([id number]-[id number] OPHTHALMIC) Use in eyes as needed. Cholecalciferol, Vitamin D3, 50 mcg (2,000 unit) cap Take 50 capsules by mouth. aspirin, enteric coated (ASPIRIN, ENTERIC COATED) 81 mg EC tablet Take 81 mg by mouth once daily. Clobetasol taper - compound [facility] Clobetasol 0.07% ointment. Use to affected area twice daily x 4 weeks then at bedtime x 4 weeks then 1-2 times per week. (Patient not taking: Reported on 06/23/2024) 1 Tube 2 FOLIC ACID/MULTIVIT-MIN/LUTEIN (CENTRUM SILVER ORAL) Take by mouth once daily. Biotin 10,000 mcg cap Take 5,000 mcg by mouth once daily. KRILL OIL ORAL Take 800 mg by mouth once daily. No current facility-administered medications for this visit. ALLERGIES Allergen Reactions Erythromycin Rash Miroslava Inhibitors Cough Atenolol Intolerance Sweating, hard time breathing Carvedilol Intolerance Slight headache, leg cramps, sweating Corgard [Nadolol] Intolerance Heavy chest, sweating, hot flashes Diltiazem Intolerance Dizzy/ heart thumping, heard to breathe Metoprolol Intolerance Chest tight, hot flash/sweat Tetracycline Hcl (B* Hives blisters Verapamil Intolerance Short of breath, fatigue, indigestion, rash Social History Tobacco U (more content not included)... [facility] 06-24-2024 Telephone encounter Note Kereos message sent to patient. Megha Hunter RN [facility] 06-24-2024 Miscellaneous Notes Kereos message sent to patient. Megha Hunter RN See Kereos message as well. Megha Hunter RN Pt called stating she saw AG yesterday and as prescribed Diflucan for yeast; however, labs resulted today and Roland/Trich resulted negative and BV was positive. Pt questioning whether or not you want her to pick the Diflucan up and what tx is required for the BV? Please advise. Vianney Denney RN documented in this encounter [facility] 06-24-2024 Telephone encounter Note See Revalesiot message as well. Megha Hunter RN [facility] 06-24-2024 Telephone encounter Note Pt called stating she saw AG yesterday and as prescribed Diflucan for yeast; however, labs resulted today and Roland/Trich resulted negative and BV was positive. Pt questioning whether or not you want her to pick the Diflucan up and what tx is required for the BV? Please advise. Vianney Denney RN [facility] 06-24-2024 Telephone encounter Note Patients swab positive for BV. Patient was given Diflucan Rx yesterday. See phone encounter dated 06/24/2024 as well. Megha Hunter RN [facility] 06-24-2024 Miscellaneous Notes Patients swab positive for BV. Patient was given Diflucan Rx yesterday. See phone encounter dated 06/24/2024 as well. Megha Hunter RN documented in this encounter [facility] 06-23-2024 Instructions Lindsey Traylor APRN.BEHAVIORAL CONSULTANT - 06/23/2024 11:04 AM EDT Fluconazole every 3 days x 3 doses Skin yeast Wash with mild soap,rinse well, pat day Apply Monistat 7 or generic once a day, make sure to apply a thin layer to all of the affected area. Do this for up to 14 days. Once the skin is all healed, to prevent further skin yeast infections: Gold Ramon Friction Defense every day. Continue clobetasol for lichen sclerosis twice a week If after 2-3 weeks, symptoms continue - you need to be seen in the office. documented in this encounter [facility] 06-23-2024 Note HNO ID: [id number] Author: LINDSEY TRAYLOR APRN.CNP Service: ? Author Type: Nurse Practitioner Type: Progress Notes Filed: 06/23/2024 12:07 Note Text: Field Spec offered: Patient declines. Lisandra Abreu is a 68 year old female who presents for problem visit for Lichen Sclerosus. HPI: Lisandra presents for a problem visit regarding Lichens Sclerosus. She states that her Lichens is irritated today. Using clobetasol ointment every 2-3 days keeps symptoms under control but is often irritated and sore. Wearing pants causes more irritation and often wears dresses because of this. OB History T0 L3 SAB0 IAB0 Ectopic0 Multiple0 Live Births0 Emergency Medical Dispatcher History LMP: Hysterectomy Age at Menarche: Age at First : Age at Menopause: Emergency Medical Dispatcher History Comments: Sexual Activity: Not Currently; No partner data on record Contraception: Surgical PAST MEDICAL HISTORY Diagnosis Date Arthritis Diabetes (HCC) Family history of colon cancer Hx of colonic polyps Hypertension Lichen sclerosus et atrophicus ELVER (obstructive sleep apnea) uses cpap. sees Dr. Walters. Snoring TIA (transient ischemic attack) 2014 PAST SURGICAL HISTORY Procedure Laterality Date BACK SURGERY HX BREAST BX NEEDLE CORE LEFT Left 06/19/2022 ultrasound guided needle core biopsy left breast BREAST SURGERY HX 07/11/2022 left breast lumpectomy COLONOSCOPY FLX DX W/COLLJ SPEC WHEN PFRMD 08/25/2015 Colonoscopy COLONOSCOPY FLX DX W/COLLJ SPEC WHEN PFRMD 02/25/2020 Colonoscopy 5 yr interval ESOPHAGOGASTRODUODENOSCOPY TRANSORAL DIAGNOSTIC 02/25/2020 esophagitis, intestinal metaplasia on stomach biopsies. Repeat in 2-3 years HAND SURGERY HX several on both hands HYSTERECTOMY HX with subsequent BSO KIDNEY SURGERY HX 1997 left kidney removed from cancer LEFT HEART CATH,PERCUTANEOUS normal per Dr. Cheema TONSILLECTOMY AND ADENOIDECTOMY FAMILY HISTORY Problem Relation Age of Onset Heart disease Mother Emphysema Mother Colon Cancer Father Heart Father Diabetes Brother other (diverticulitis) Maternal Grandmother Heart Attack Maternal Grandmother No Known Problems Maternal Grandfather Diabetes Paternal Grandmother Heart Attack Paternal Grandfather Stroke Paternal Grandfather Social History Tobacco Use Smoking status: Former Current packs/day: 0.00 Types: Cigarettes Quit date: 12/24/2009 Years since quittin.5 Passive exposure: Never Smokeless tobacco: Never Vaping Use Vaping status: Former Substance Use Topics Alcohol use: Not Currently Comment: rarely Drug use: No Current Outpatient Medications Medication Sig atorvastatin (LIPITOR) 80 mg tablet Take 1 tablet by mouth once daily. clobetasol (TEMOVATE) 0.05 % ointment Apply 1 application to affected area as directed. TO AFFECTED AREA 1-2 times a week for control of lichen sclerosis. hydroCHLOROthiazide 25 mg tablet Take 1 tablet by mouth once daily. meloxicam (MOBIC) 15 mg tablet Take 1 tablet by mouth once daily. atenolol (TENORMIN) 50 mg tablet Take 1 tablet by mouth once daily. metFORMIN ER (FORTAMET) 500 mg 24 hr tablet Take 1 tablet by mouth daily with breakfast. May substitute blood sugar diagnostic (BLOOD GLUCOSE TEST) test strip Test blood sugar(s) 1 times daily. Dx: Type 2 DM - Controlled E11.9 Insulin: No losartan (COZAAR) 100 mg tablet Take 1 tablet by mouth once daily. Lancets lancets Test blood sugar(s) 1 times daily. Dx: Type 2 DM - Controlled E11.9 Insulin: No L. acidophilus-L. rhamnosus 15 billion cell cap Take 1 capsule by mouth once daily. FLORAJEN WOMEN. If on antibiotic, take at least 1-2 hours before or after antibiotic. KEEP REFRIGERATED amLODIPine (NORVASC) 10 mg tablet Take 10 mg by mouth once daily. Going to double check dosage. neomycin/polymyxin B/dexametha ([id number] OPHTHALMIC) Use in eyes as needed. Cholecalciferol, Vitamin D3, 50 mcg (2,000 unit) cap Take 50 capsules by mouth. aspirin, enteric coated (ASPIRIN, ENTERIC COATED) 81 mg EC tablet Take 81 mg by mouth once daily. FOLIC ACID/MULTIVIT-MIN/LUTEIN (CENTRUM SILVER ORAL) Take by mouth once daily. Biotin 10,000 mcg cap Take 5,000 mcg by mouth once daily. KRILL OIL ORAL Take 800 mg by mouth once daily. Clobetasol taper - compound [facility] Clobetasol 0.07% ointment. Use to affected area twice daily x 4 weeks then at bedtime x 4 weeks then 1-2 times per week. (Patient not taking: Reported on 06/23/2024) No current facility-administered medications for this visit. Allergies As of Date: 06/23/2024 Allergen Noted Reaction ERYTHROMYCIN 02/20/2017 Rash MIROSLAVA INHIBITORS 07/13/2021 Cough ATENOLOL 07/13/2021 Intolerance CARVEDILOL 07/13/2021 Intolerance CORGARD [NADOLOL] 07/13/2021 Intolerance DILTIAZEM 07/13/2021 Intolerance METOPROLOL 07/13/2021 Intolerance TETRACYCLINE HCL (BULK) 08/22/2015 Hives VERAPAMIL 07/13/2021 Intolerance Fully Assessed 06/23/2024 REVIEW OF SYSTEMS Nile (more content not included)... [facility] 06-23-2024 History of Present illness Narrative Field Spec offered: Patient declines. Lisandra Abreu is a 68 year old female who presents for problem visit for Lichen Sclerosus. HPI: Lisandra presents for a problem visit regarding Lichens Sclerosus. She states that her Lichens is irritated today. Using clobetasol ointment every 2-3 days keeps symptoms under control but is often irritated and sore. Wearing pants causes more irritation and often wears dresses because of this. OB History T0 L3 SAB0 IAB0 Ectopic0 Multiple0 Live Births0 Emergency Medical Dispatcher History LMP: Hysterectomy Age at Menarche: Age at First : Age at Menopause: Emergency Medical Dispatcher History Comments: Sexual Activity: Not Currently; No partner data on record Contraception: Surgical PAST MEDICAL HISTORY Diagnosis Date Arthritis Diabetes (HCC) Family history of colon cancer Hx of colonic polyps Hypertension Lichen sclerosus et atrophicus ELVER (obstructive sleep apnea) uses cpap. sees Dr. Walters. Snoring TIA (transient ischemic attack) 2014 PAST SURGICAL HISTORY Procedure Laterality Date BACK SURGERY HX BREAST BX NEEDLE CORE LEFT Left 06/19/2022 ultrasound guided needle core biopsy left breast BREAST SURGERY HX 07/11/2022 left breast lumpectomy COLONOSCOPY FLX DX W/COLLJ SPEC WHEN PFRMD 08/25/2015 Colonoscopy COLONOSCOPY FLX DX W/COLLJ SPEC WHEN PFRMD 02/25/2020 Colonoscopy 5 yr interval ESOPHAGOGASTRODUODENOSCOPY TRANSORAL DIAGNOSTIC 02/25/2020 esophagitis, intestinal metaplasia on stomach biopsies. Repeat in 2-3 years HAND SURGERY HX several on both hands HYSTERECTOMY HX with subsequent BSO KIDNEY SURGERY HX 1997 left kidney removed from cancer LEFT HEART CATH,PERCUTANEOUS normal per Dr. Cheema TONSILLECTOMY & ADENOIDECTOMY <AGE 12 FAMILY HISTORY Problem Relation Age of Onset Heart disease Mother Emphysema Mother Colon Cancer Father Heart Father Diabetes Brother other (diverticulitis) Maternal Grandmother Heart Attack Maternal Grandmother No Known Problems Maternal Grandfather Diabetes Paternal Grandmother Heart Attack Paternal Grandfather Stroke Paternal Grandfather Social History Tobacco Use Smoking status: Former Current packs/day: 0.00 Types: Cigarettes Quit date: 12/24/2009 Years since quittin.5 Passive exposure: Never Smokeless tobacco: Never Vaping Use Vaping status: Former Substance Use Topics Alcohol use: Not Currently Comment: rarely Drug use: No Current Outpatient Medications Medication Sig atorvastatin (LIPITOR) 80 mg tablet Take 1 tablet by mouth once daily. clobetasol (TEMOVATE) 0.05 % ointment Apply 1 application to affected area as directed. TO AFFECTED AREA 1-2 times a week for control of lichen sclerosis. hydroCHLOROthiazide 25 mg tablet Take 1 tablet by mouth once daily. meloxicam (MOBIC) 15 mg tablet Take 1 tablet by mouth once daily. atenolol (TENORMIN) 50 mg tablet Take 1 tablet by mouth once daily. metFORMIN ER (FORTAMET) 500 mg 24 hr tablet Take 1 tablet by mouth daily with breakfast. May substitute blood sugar diagnostic (BLOOD GLUCOSE TEST) test strip Test blood sugar(s) 1 times daily. Dx: Type 2 DM - Controlled E11.9 Insulin: No losartan (COZAAR) 100 mg tablet Take 1 tablet by mouth once daily. Lancets lancets Test blood sugar(s) 1 times daily. Dx: Type 2 DM - Controlled E11.9 Insulin: No L. acidophilus-L. rhamnosus 15 billion cell cap Take 1 capsule by mouth once daily. FLORAJEN WOMEN. If on antibiotic, take at least 1-2 hours before or after antibiotic. KEEP REFRIGERATED amLODIPine (NORVASC) 10 mg tablet Take 10 mg by mouth once daily. Going to double check dosage. neomycin/polymyxin B/dexametha ([id number]-PVIMUKER OPHTHALMIC) Use in eyes as needed. Cholecalciferol, Vitamin D3, 50 mcg (2,000 unit) cap Take 50 capsules by mouth. aspirin, enteric coated (ASPIRIN, ENTERIC COATED) 81 mg EC tablet Take 81 mg by mouth once daily. FOLIC ACID/MULTIVIT-MIN/LUTEIN (CENTRUM SILVER ORAL) Take by mouth once daily. Biotin 10,000 mcg cap Take 5,000 mcg by mouth once daily. KRILL OIL ORAL Take 800 mg by mouth once daily. Clobetasol taper - compound [facility] Clobetasol 0.07% ointment. Use to affected area twice daily x 4 weeks then at bedtime x 4 weeks then 1-2 times per week. (Patient not taking: Reported on 06/23/2024) No current facility-administered medications for this visit. Allergies As of Date: 06/23/2024 Allergen Noted Reaction ERYTHROMYCIN 02/20/2017 Rash MIROSLAVA INHIBITORS 07/13/2021 Cough ATENOLOL 07/13/2021 Intolerance CARVEDILOL 07/13/2021 Intolerance CORGARD [NADOLOL] 07/13/2021 Intolerance DILTIAZEM 07/13/2021 Intolerance METOPROLOL 07/13/2021 Intolerance TETRACYCLINE HCL (BULK) 08/22/2015 Hives VERAPAMIL 07/13/2021 Intolerance Fully Assessed 06/23/2024 REVIEW OF SYSTEMS Allergies and current medication updated:Yes SENSITIVE EXAM: The sensitive examination was discussed with the Patient or Patient's Authorized Chief Scientific Officer. As applicable, any other physician, advance practice provider, medical student, or other health professional student that will be observing or involved in the sensitive examination for educational or training purposes was discussed with the Patient or Authorized Chief Scientific Officer. The Patient or Authorized Chief Scientific Officer has agreed to proceed with the sensitive examination. (Sensitive examination includes inspection and/or palpation of the breasts, pelvis, prostate and anorectal regions). EXAM: BP 130/80 Wt 271 lb (122.9kg) GENERAL: pleasant, female in no apparent distress CHEST: Normal inspiratory effort ABDOMEN: soft and non-tender resolving intertrigo bilateral groin with remnants of powder noted PELVIC: Inner vulva erythematous with thick white adherent discharge which is painful when removed. LS -well-controlled with minimal hypopigmentation and no plaques. Internal exam -vaginal gonzales erythematous with thin off-white discharge. NEURO: alert and oriented x3,exam grossly non-focal ASSESSMENT/PLAN: 1. Vaginal irritation - ICD9: 623.9, ICD10: N89.8 (primary diagnosis) -Suspect irritation caused by yeast infection and will treat as such. - ROLAND/TRICHOMONAS NAAT - BACTERIAL VAGINOSIS NAAT 2. Intertrigo of genital labia - ICD9: 695.89, ICD10: L30.4 - also noted to perineum and perianal area Plan and education: Skin yeast Wash with mild soap,rinse well, pat day Apply Monistat 7 or generic once a day, make sure to apply a thin layer to all of the affected area. Do this for up to 14 days. Once the skin is all healed, to prevent further skin yeast infections: Gold Ramon Friction Defense every day. - FLUCONAZOLE 150 MG TABLET - every 3 days x 3 doses 3. Lichen sclerosus - ICD9: 701.0, ICD10: L90.0 -Lichen sclerosus well-controlled. - Continue clobetasol for lichen sclerosis twice a week Lengthy discussion with patient regarding differentiation of symptoms to determine exact cause. Most likely cause is yeast as her A1c is elevated and her symptoms correspond to yeast along with intertrigo. Will treat for yeast and if after 2-3 weeks, symptoms continue, she will make an appointment for reevaluation in the office. Will plan trial of vaginal estrogen and possible vulvar biopsy. She has had problems with applicators in the past so may need Yuvafem or Revaree suppository. Lichen sclerosus is well-controlled at this time. All questions answered and she is agreeable to plan. Lindsey Traylor APRN.CNP Medical Decision Making: Problems: Moderate: New problem with uncertain prognosis and 1+ chronic illnesses with change Risk: Moderate: Drug management and Moderate risk from testing/treatment Medical Decision Making Level: 4 - Moderate documented in this encounter [facility] 04-27-2024 Telephone encounter Note Prescription Refill Information The patient has been identified by name and date of : Yes Caregiver verified no other encounters exist for this prescription request: Yes Caregiver confirmed with patient/requestor that no other refills are due, in the near future, with this provider at this time: Yes The last office visit in the department: 02/14/2024 Does the patient have a future office visit with this provider/department: Yes Requested Prescriptions Pending Prescriptions Disp Refills atorvastatin (LIPITOR) 80 mg tablet 90 tablet 1 Sig: Take 1 tablet by mouth once daily. Anika Degroot LPN April 27, 2024 10:29 AM [facility] 04-27-2024 Miscellaneous Notes Prescription Refill Information The patient has been identified by name and date of : Yes Caregiver verified no other encounters exist for this prescription request: Yes Caregiver confirmed with patient/requestor that no other refills are due, in the near future, with this provider at this time: Yes The last office visit in the department: 02/14/2024 Does the patient have a future office visit with this provider/department: Yes Requested Prescriptions Pending Prescriptions Disp Refills atorvastatin (LIPITOR) 80 mg tablet 90 tablet 1 Sig: Take 1 tablet by mouth once daily. Anika Degroot LPN April 27, 2024 10:29 AM documented in this encounter [facility] 04-27-2024 Telephone encounter Note Refill request received via Kereos. Patient last seen in office on 10/11/22. PSS: Please contact patient to schedule annual exam. Thank you. Megha Hunter RN [facility] 04-27-2024 Miscellaneous Notes Refill request received via Revalesiot. Patient last seen in office on 10/11/22. PSS: Please contact patient to schedule annual exam. Thank you. Megha Hunter RN documented in this encounter [facility] 02-14-2024 History of Present illness Narrative Patient presents with: 6 Month Exam HPI: Patient presents today for office visit for follow up. Bruises on arms and hands. Some on legs but those seem different. Follow up seeing Olga Valdovinos at [facility] for her liver. Has labs pending. No itching or stomach pain. Fatigue: Not overall feeling bad just tired all the time. Does wear a CPAP. Emotionally is stable. No chest pain No new shortness of breath. She does not feel it is significant. ELVER: uses CPAP regularly. Sleeps well: Yes. Feels like benefiting from use of this. Feels rested on awakening: most day. Feels tired during the day. Snoring: No DM: Reports overall feeling well. Medication side effects: No. Home sugar check frequency/results:not routine but can check daily Hypoglycemic spells: No. Watching diet: No. Unexpected weight loss: No. Polyuria, polydipsia: has noticed a little more thirst and urination. Vision Changes: eye exam is scheduled. Has noticed no issues. Foot lesions or numbness or pain: stable. HYPERLIPIDEMIA: Patient is taking medications: Yes. Patient is watching diet: No. Patient denies myalgias: Yes. Patient denies gi upset: Yes. Also denies bowel changes. Bp is well controlled. Follows with cardiology and pulmonary. MEDICATIONS: Current Outpatient Medications Medication Sig hydroCHLOROthiazide 25 mg tablet Take 1 tablet by mouth once daily. meloxicam (MOBIC) 15 mg tablet Take 1 tablet by mouth once daily. atenolol (TENORMIN) 50 mg tablet Take 1 tablet by mouth once daily. metFORMIN ER (FORTAMET) 500 mg 24 hr tablet Take 1 tablet by mouth daily with breakfast. May substitute atorvastatin (LIPITOR) 80 mg tablet Take 1 tablet by mouth once daily. blood sugar diagnostic (BLOOD GLUCOSE TEST) test strip Test blood sugar(s) 1 times daily. Dx: Type 2 DM - Controlled E11.9 Insulin: No losartan (COZAAR) 100 mg tablet Take 1 tablet by mouth once daily. clobetasol (TEMOVATE) 0.05 % ointment Apply 1 application to affected area as directed. TO AFFECTED AREA 1-2 times a week for control of lichen sclerosis. Lancets lancets Test blood sugar(s) 1 times daily. Dx: Type 2 DM - Controlled E11.9 Insulin: No L. acidophilus-L. rhamnosus 15 billion cell cap Take 1 capsule by mouth once daily. FLORAJEN WOMEN. If on antibiotic, take at least 1-2 hours before or after antibiotic. KEEP REFRIGERATED amLODIPine (NORVASC) 10 mg tablet Take 10 mg by mouth once daily. Going to double check dosage. neomycin/polymyxin B/dexametha ([id number]-MKDZJPZY OPHTHALMIC) Use in eyes as needed. Cholecalciferol, Vitamin D3, 50 mcg (2,000 unit) cap Take 50 capsules by mouth. aspirin, enteric coated (ASPIRIN, ENTERIC COATED) 81 mg EC tablet Take 81 mg by mouth once daily. Clobetasol taper - compound [facility] Clobetasol 0.07% ointment. Use to affected area twice daily x 4 weeks then at bedtime x 4 weeks then 1-2 times per week. FOLIC ACID/MULTIVIT-MIN/LUTEIN (CENTRUM SILVER ORAL) Take by mouth once daily. Biotin 10,000 mcg cap Take 5,000 mcg by mouth once daily. KRILL OIL ORAL Take 800 mg by mouth once daily. No current facility-administered medications for this visit. ALLERGIES: ALLERGIES Allergen Reactions Erythromycin Rash Miroslava Inhibitors Cough Atenolol Intolerance Sweating, hard time breathing Carvedilol Intolerance Slight headache, leg cramps, sweating Corgard [Nadolol] Intolerance Heavy chest, sweating, hot flashes Diltiazem Intolerance Dizzy/ heart thumping, heard to breathe Metoprolol Intolerance Chest tight, hot flash/sweat Tetracycline Hcl (B* Hives blisters Verapamil Intolerance Short of breath, fatigue, indigestion, rash PAST MEDICAL HISTORY Diagnosis Date Arthritis Diabetes (HCC) Family history of colon cancer Hx of colonic polyps Hypertension Lichen sclerosus et atrophicus ELVER (obstructive sleep apnea) uses cpap. sees Dr. Walters. Snoring TIA (transient ischemic attack) 2014 PAST SURGICAL HISTORY Procedure Laterality Date BACK SURGERY HX BREAST BX NEEDLE CORE LEFT Left 06/19/2022 ultrasound guided needle core biopsy left breast BREAST SURGERY HX 07/11/2022 left breast lumpectomy COLONOSCOPY FLX DX W/COLLJ SPEC WHEN PFRMD 08/25/2015 Colonoscopy COLONOSCOPY FLX DX W/COLLJ SPEC WHEN PFRMD 02/25/2020 Colonoscopy 5 yr interval ESOPHAGOGASTRODUODENOSCOPY TRANSORAL DIAGNOSTIC 02/25/2020 esophagitis, intestinal metaplasia on stomach biopsies. Repeat in 2-3 years HAND SURGERY HX several on both hands HYSTERECTOMY HX with subsequent BSO KIDNEY SURGERY HX 1997 left kidney removed from cancer LEFT HEART CATH,PERCUTANEOUS normal per Dr. Cheema TONSILLECTOMY & ADENOIDECTOMY <AGE 12 FAMILY HISTORY Problem Relation Age of Onset Heart disease Mother Emphysema Mother Colon Cancer Father Heart Father Diabetes Brother other (diverticulitis) Maternal Grandmother Heart Attack Maternal Grandmother No Known Problems Maternal Grandfather Diabetes Paternal Grandmother Heart Attack Paternal Grandfather Stroke Paternal Grandfather Social History Tobacco Use Smoking status: Former Packs/day: 1 Types: Cigarettes Quit date: 12/24/2009 Years since quittin.1 Passive exposure: Never Smokeless tobacco: Never Vaping Use Vaping Use: Former Substance Use Topics Alcohol use: Not Currently Comment: rarely Drug use: No Reviewed current medications, allergies, past medical history, surgical history, family history and social history today. REVIEW OF SYSTEMS All other reviewed and negative other than HPI. HEALTH MAINTENANCE: Reviewed health maintenance issues today and recommended the following in detail. BP Controlled (<130/80) Never done Dilated Retinal Exam -has appt coming up. Covid-19 Vaccine( season) due on 08/27/2023 Advance Directive Discussion due on 09/16/2023 Behavioral Health Screening -Behavioral Health Screening PHQ-2 Score: 0 (Lower risk for depression) FLAKITA-2 Score: 0 (Lower risk for anxiety) Recommendation: no further intervention at this time HbA1C due on 01/31/2024 VITALS: BP 126/82 Pulse (!) 56 Wt 119.3 kg (263 lb) SpO2 95% BMI 43.10 kg/m Last 4 Encounter Wt Readings: Date: Wt: 12/26/2023 118.2 kg (260 lb 9.3 oz) 09/12/2023 115.9 kg (255 lb 9.6 oz) 08/02/2023 113.9 kg (251 lb) 06/21/2023 112.2 kg (247 lb 4 oz) PHYSICAL EXAMINATION: General appearance: Well appearing, alert, in no acute distress, well-hydrated, well nourished. Skin: senile purpura. Some bruising on legs. Head: Normocephalic, no masses, lesions, tenderness or abnormalities Lungs: Lungs clear to auscultation. No wheezing, rhonchi, rales Heart: RRR without murmur, gallop, or rubs. No ectopy Abdomen: Normal abdominal exam, Abdomen soft, non-tender. Bowel sounds normal. No masses, organomegaly Extremities: No deformities, edema, skin discoloration, clubbing or cyanosis. Good capillary refill. Musculoskeletal: No joint swelling, deformity, or tenderness Peripheral pulses: Normal ASSESSMENT/PLAN: 1. Primary hypertension - ICD9: 401.9, ICD10: I10 (primary diagnosis) - Controlled - Continue current medications 2. Controlled type 2 diabetes mellitus without complication, without long-term current use of insulin (HCC) - ICD9: 250.00, ICD10: E11.9 - follow labs. - HEMOGLOBIN A1C 3. Pulmonary HTN (HCC) - ICD9: 416.8, ICD10: I27.20 - stable, per pulm and cardiolgoy 4. Nonobstructive atherosclerosis of coronary artery - ICD9: 414.00, ICD10: I25.10 - stable. 5. Congestive heart failure, unspecified HF chronicity, unspecified heart failure type (HCC) - ICD9: 428.0, ICD10: I50.9 -no signs of fluid overload 6. ELVER (obstructive sleep apnea) - ICD9: 327.23, ICD10: G47.33 - doing well. 7. History of renal cell cancer - ICD9: V10.52, ICD10: Z85.528 - doing well. 8. Psoriatic arthritis (HCC) - ICD9: 696.0, ICD10: L40.50 - stable. 9. TIA (transient ischemic attack) - ICD9: 435.9, ICD10: G45.9 - no issues 10. Decreased bone density - ICD9: 733.99, ICD10: M85.80 - VITAMIN D 25 HYDROXY 11. Fatigue, unspecified type - ICD9: 780.79, ICD10: R53.83 - check labs. - THYROID STIMULATING HORMONE 12. Bruising - ICD9: 924.9, ICD10: T14.8XXA - likely senile purpura. - PROTHROMBIN TIME - ACTIVATED PARTIAL THROMBOPLASTIN TIME Pedro Jacob MD documented in this encounter [facility] 01-27-2024 Telephone encounter Note It does appear that Dr Riggins filled this last do you want her to continue filling there? [facility] 01-27-2024 Miscellaneous Notes It does appear that Dr Riggins filled this last do you want her to continue filling there? documented in this encounter [facility] 01-27-2024 Telephone encounter Note Patient has been identified by name and date of :Provider Dr. Irizarry Date 01/27/24 Time 04/22 Patient phones for refill(s): Requested Prescriptions Pending Prescriptions Disp Refills hydroCHLOROthiazide 25 mg tablet 90 tablet 1 Sig: Take 1 tablet by mouth once daily. meloxicam (MOBIC) 15 mg tablet 90 tablet 1 Sig: Take 1 tablet by mouth once daily. Date of last office visit in primary care: 08/02/2023 Date of next office visit in primary care: 02/14/2024 Please advise. Thank you. Johanna Carlos LPN. // [facility] 01-27-2024 Miscellaneous Notes Patient has been identified by name and date of :Provider Dr. Irizarry Date 01/27/24 Time 04/22 Patient phones for refill(s): Requested Prescriptions Pending Prescriptions Disp Refills hydroCHLOROthiazide 25 mg tablet 90 tablet 1 Sig: Take 1 tablet by mouth once daily. meloxicam (MOBIC) 15 mg tablet 90 tablet 1 Sig: Take 1 tablet by mouth once daily. Date of last office visit in primary care: 08/02/2023 Date of next office visit in primary care: 02/14/2024 Please advise. Thank you. Johanna Carlos LPN. // documented in this encounter [facility] 01-08-2024 Note Formatting of this n ote might be different from the original. January 09, 2024 PID: [id number] Lisandra Abreu [address] [place] [address] Dear Ms. Abreu, We are pleased to inform you that the results of your recent breast imaging exam on 01/07/2024 are normal. Early detection of cancer is very important. We also understand recommendations regarding breast cancer screening are controversial. Please discuss with your primary care provider which strategy is best for you and whether a mammogram is right for you. Your imaging studies and report will be kept on file at [facility] as part of your permanent medical record and are available for your continuing care. Thank you for allowing us to help in meeting your health care needs. Sincerely, Dr. Penny Interpreting Radiologist [facility] (Normal over 40) [facility] 01-08-2024 Miscellaneous Notes January 09, 2024 PID: [id number] Lisandra Abreu [address] [place] [address] Dear Ms. Abreu, We are pleased to inform you that the results of your recent breast imaging exam on 01/07/2024 are normal. Early detection of cancer is very important. We also understand recommendations regarding breast cancer screening are controversial. Please discuss with your primary care provider which strategy is best for you and whether a mammogram is right for you. Your imaging studies and report will be kept on file at [facility] as part of your permanent medical record and are available for your continuing care. Thank you for allowing us to help in meeting your health care needs. Sincerely, Dr. Penny Interpreting Radiologist [facility] (Normal over 40) documented in this encounter [facility] 01-07-2024 History of Present illness Narrative Radiology Service Progress Note PATIENT NAME: Lisandra Abreu DATE OF SERVICE: January 07, 2024 TIME: 11:33 AM PATIENT IDENTITY VERIFICATION COMPLETED USING TWO (2) IDENTIFIERS: Name and Date of confirmed by patient verbally. FALL SCREENING: Has the patient had 2 falls in the last year or 1 fall with injury or currently using an Ambulatory Assistive Device (Walker, Cane, Wheelchair, Crutches, etc.)? No PATIENT GENDER DATA: Female. status: : No status: NO. PATIENT RELEVANT IMPLANT DATA REVIEWED: Not Applicable PATIENT PRESENTS WITH AN IMPLANTABLE OR ATTACHED MOLDER FLOOR: No RADIOLOGY DEPARTMENT: Mammography PERIPHERAL IV DATA: Not applicable SIGNED BY: Anju Arriaga January 07, 2024 11:33 AM documented in this encounter [facility] 12-26-2023 History of Present illness Narrative NAME: Lisandra Abreu [facility] NO: [id number] PRESENTING COMPLAINT: Follow up MASLD HPI: Lisandra Abreu is a pleasant 68 year old female is here on follow up for MASLD. Complications of liver disease include none. ERNIE 06/21/2023. PMHx includes CHF, HLD, HTN, Pulmonary HTN, ELVER, DM Type II, psoriasis, Lichen sclerosus and obesity. S/p nephrectomy kidney Ca, no chemo or radiation. From last note: LFTs WNL, synthetic liver function is preserved Due for ultrasound liver Has lost about 40 pounds Was doing fasting, then Nutri System, no longer either Has to work on exercising, was doing okay in the summer, but not so much now Was prescribed Trulicity in January, has helped with her glucose, but is now too expensive; discussed increasing her Metformin, she will discuss with her PCP Interval Hx: US Abd RUQ Today: Hepatic steatosis HGB A1C 5.8; metformin Fibroscan today: kPa 6.4, CAP 159 (prior was kPa 13.5, CAP 365) Has gained some weight back Has not been exercising. Has been bad with carbs recent She has been feeling well. Patient denies RUQ pain, shortness of breath, signs of fluid retention, fever, chills, nausea, jaundice, dark colored urine, pale colored stools, constipation, diarrhea, hematemesis, melena, decreased appetite, muscle wasting, confusion, weight loss and fatigue REVIEW OF SYSTEMS GENERAL: No unexplained weight changes or fevers. HEENT: Negative for severe headaches, negative for changes in hearing or vision. NECK: Negative for lumps, masses or pain. RESPIRATORY: Negative for coughing, wheezing or significant dyspnea. CARDIOVASCULAR: Negative for chest pain or heart palpitations. GASTROINTESTINAL: Negative for rectal bleeding or black tarry stools. GENITOURINARY: Negative for dysuria or urinary incontinence. MUSCULOSKELETAL: Negative for unexplained joint pains, dislocations or fractures. NEUROLOGIC: Negative for unexplained weakness or vertigo. SKIN: Negative for new lesions or rashes. ENDOCRINE: Negative for cold or heat intolerance . Current Outpatient Medications Medication Sig Dispense Refill metFORMIN ER (FORTAMET) 500 mg 24 hr tablet Take 1 tablet by mouth daily with breakfast. May substitute 90 tablet 3 atorvastatin (LIPITOR) 80 mg tablet Take 1 tablet by mouth once daily. 90 tablet 1 blood sugar diagnostic (BLOOD GLUCOSE TEST) test strip Test blood sugar(s) 1 times daily. Dx: Type 2 DM - Controlled E11.9 Insulin: No 50 Strip 11 losartan (COZAAR) 100 mg tablet Take 1 tablet by mouth once daily. 90 tablet 3 hydroCHLOROthiazide 25 mg tablet Take 1 tablet by mouth once daily. 90 tablet 1 meloxicam (MOBIC) 15 mg tablet Take 1 tablet by mouth once daily. 90 tablet 1 clobetasol (TEMOVATE) 0.05 % ointment Apply 1 application to affected area as directed. TO AFFECTED AREA 1-2 times a week for control of lichen sclerosis. 60 g 3 Lancets lancets Test blood sugar(s) 1 times daily. Dx: Type 2 DM - Controlled E11.9 Insulin: No 100 Each 11 L. acidophilus-L. rhamnosus 15 billion cell cap Take 1 capsule by mouth once daily. FLORAJEN WOMEN. If on antibiotic, take at least 1-2 hours before or after antibiotic. KEEP REFRIGERATED 30 capsule 11 amLODIPine (NORVASC) 10 mg tablet Take 10 mg by mouth once daily. Going to double check dosage. atenolol (TENORMIN) 50 mg tablet Take 50 mg by mouth once daily. neomycin/polymyxin B/dexametha ([id number] OPHTHALMIC) Use in eyes as needed. Cholecalciferol, Vitamin D3, 50 mcg (2,000 unit) cap Take 50 capsules by mouth. aspirin, enteric coated (ASPIRIN, ENTERIC COATED) 81 mg EC tablet Take 81 mg by mouth once daily. Clobetasol taper - compound [facility] Clobetasol 0.07% ointment. Use to affected area twice daily x 4 weeks then at bedtime x 4 weeks then 1-2 times per week. 1 Tube 2 FOLIC ACID/MULTIVIT-MIN/LUTEIN (CENTRUM SILVER ORAL) Take by mouth once daily. Biotin 10,000 mcg cap Take 5,000 mcg by mouth once daily. KRILL OIL ORAL Take 800 mg by mouth once daily. No current facility-administered medications for this visit. ALLERGIES Allergen Reactions Erythromycin Rash Miroslava Inhibitors Cough Atenolol Intolerance Sweating, hard time breathing Carvedilol Intolerance Slight headache, leg cramps, sweating Corgard [Nadolol] Intolerance Heavy chest, sweating, hot flashes Diltiazem Intolerance Dizzy/ heart thumping, heard to breathe Metoprolol Intolerance Chest tight, hot flash/sweat Tetracycline Hcl (B* Hives blisters Verapamil Intolerance Short of breath, fatigue, indigestion, rash Social History Tobacco Use Smoking status: Former Packs/day: 1 Types: Cigarettes Quit date: 12/24/2009 Years since quittin.0 Smokeless tobacco: Never Vaping Use Vaping Use: Former Substance Use Topics Alcohol use: Not Currently Comment: rarely Drug use: No PAST MEDICAL HISTORY Diagnosis Date Arthritis Diabetes (HCC) Family history of colon cancer Hx of colonic polyps Hypertension Lichen sclerosus et atrophicus ELVER (obstructive sleep apnea) uses cpap. sees Dr. Walters. Snoring TIA (transient ischemic attack) 2014 @[facility]@ FAMILY HISTORY Problem Relation Age of Onset Heart disease Mother Emphysema Mother Colon Cancer Father Heart Father Diabetes Brother other (diverticulitis) Maternal Grandmother Heart Attack Maternal Grandmother No Known Problems Maternal Grandfather Diabetes Paternal Grandmother Heart Attack Paternal Grandfather Stroke Paternal Grandfather PHYSICAL EXAM 12/26/23 1056 BP: 131/60 BP Site: Left Arm BP Position: Sitting BP Cuff Size: Large Adult Pulse: 61 Temp: 36.5 C (97.7 F) TempSrc: Temporal SpO2: 96% Weight: 118.2 kg (260 lb 9.3 oz) Height: 166.4 cm (5' 5.5) General Appearance: Well appearing, alert, in no acute distress, well-hydrated, well nourished. Eyes: Conjunctiva and sclera normal Oropharynx: Lips, tongue, and oral mucosa normal. There is no thrush or oral ulcers. Abdomen: not distended Extremities: no cyanosis or edema Skin: no jaundice, no spider angiomas, no palmar erythema Neuro:alert, oriented x 3, pleasant and in no acute distress Recent Labs: Hemoglobin (g/dL) Date Value 06/13/2023 13.7 07/20/2021 14.3 Hematocrit (%) Date Value 06/13/2023 43.3 07/20/2021 45.0 WBC (k/uL) Date Value 06/13/2023 7.51 07/20/2021 7.69 Glucose (mg/dL) Date Value 08/02/2023 123 07/20/2021 120 Potassium (mmol/L) Date Value 08/02/2023 4.2 07/20/2021 4.2 Sodium (mmol/L) Date Value 08/02/2023 140 07/20/2021 139 Chloride (mmol/L) Date Value 08/02/2023 101 07/20/2021 101 CO2 (mmol/L) Date Value 08/02/2023 27 07/20/2021 21 Creatinine (mg/dL) Date Value 08/02/2023 1.04 07/20/2021 0.94 BUN (mg/dL) Date Value 08/02/2023 26 07/20/2021 19 Anion Gap (mmol/L) Date Value 08/02/2023 12 07/20/2021 17 Calcium (mg/dL) Date Value 07/20/2021 10.1 Calcium, Total (mg/dL) Date Value 08/02/2023 10.2 Albumin (g/dL) Date Value 06/13/2023 4.6 Bilirubin, Total (mg/dL) Date Value 06/13/2023 0.5 Bilirubin, Conjugated (mg/dL) Date Value 08/16/2022 <0.2 Alkaline Phosphatase (U/L) Date Value 06/13/2023 100 AST (U/L) Date Value 06/13/2023 25 ALT (U/L) Date Value 06/13/2023 32 Protein, Total (g/dL) Date Value 06/13/2023 7.3 Computed MELD 3.0 unavailable. One or more values for this score either were not found within the given timeframe or did not fit some other criterion. Computed MELD-Na unavailable. One or more values for this score either were not found within the given timeframe or did not fit some other criterion. Imaging: RUQ Ultrasound: Today: 12/26/2023 IMPRESSION: Hepatic steatosis. No splenomegaly or ascites RESULT: Pancreas: Normal sonographic appearance. Portions obscured: tail Liver: Echotexture: Normal, homogeneous. Echogenicity: Increased compatible with steatosis. Focal sparing seen adjacent to gallbladder fossa. Surface contour: Smooth Lesions: None. Biliary: No intrahepatic biliary duct dilation. CBD: 0.5 cm at the hilum. Gallbladder: Normal caliber -Contents: No cholelithiasis -Wall: Normal -Other: No pericholecystic fluid. Right Kidney: No hydronephrosis. Measures 12.9 cm in length Ascites: None. Spleen: The craniocaudal length of the spleen is 10.5 cm, normal. There are no splenic lesions. Assessment IMPRESSION -Reviewed available labs and imaging with the patient -Discussed the natural history of liver disease, up to and including cirrhosis -Discussed possible causes of liver enzyme elevation -Discussed the natural history of fatty liver, risk factors and the possibility of progression to cirrhosis -Discussed metabolic syndrome, risk factors, the importance of control of MES risk factors -Discussed Hepatic fibrosis/steatosis staging: Fibroscan, specific to the patient's Fibroscan results -Discussed the effect of alcohol use on liver enzymes and the liver -Discussed a healthy, Mediterranean diet with lean proteins, fresh fruits and vegetables, low carb and low sugar -Discussed regular aerobic exercise as tolerated with a goal of 40-45 minutes per day at least 5 days per week -Discussed upcoming testing for further evaluation for causes of liver enzyme elevation PLAN (K76.0) Hepatic steatosis (primary encounter diagnosis) -Consult to nutrition therapy -CMP, CBC, PT and AFP for liver enzymes and function and HCC screening -US abd RUQ for hepatic morphology -Weight loss -Maintain a healthy diet -Regular exercise -Minimize alcohol intake Follow up in 6 months. Please contact sooner if you have questions or problems develop. Olga Valdovinos APRN.CNP December 25, 2023 5:53 PM documented in this encounter [facility] 12-26-2023 History of Present illness Narrative Patient fasting for 3 hours:Yes Fibroscan was performed on December 26, 2023, by Radha Membreno LPN and results are interpreted by Thalia Mckeon APRN.BEHAVIORAL CONSULTANT Indication: Fatty liver Please refer to get images report for individual readings Number of readings: 10 IQR %: 16 E (kpa): 6.4 CAP: 159 Impression The reading was adequate. FS= 6.4 kPA. The CAP score is 159 and corresponds to steatosis grade of S0. This reading corresponds: A 97% chance of stage 0-2 fibrosis A 3% chance of stage 3-4 fibrosis (advanced fibrosis) A <1% chance of stage 4 fibrosis (cirrhosis).A kPa >20 indicates a high likelihood of stage 4 fibrosis/cirrhosis, consider further testing to confirm. Thalia Mckeon APRN.BEHAVIORAL CONSULTANT MASLD Fibroscan Fibrosis Risk <7 kPA = F0-F2 97%, F3+F4 3%, F4 <1% <10 kPA = F0-F2 91%, F3+F4 9%, F4 1.3% 10-15 kPA = F0-F2 56%, F3+F4 43%, F4 14% >15 kPA = F0-F2 26%, F3+F4 74%, F4 46% Grade CAP value up to 237 dB/M corresponds to S0 (< 10 % Fat) CAP value between (238 - 258 dB/M) corresponds to S1 (>/= 11 % Fat) CAP value between (259 - 289 dB/M) corresponds to S2 (>/= 33 % Fat) CAP value > 290dB/M corresponds to S3 (>/= 67 % Fat) stage 0 ( S0:< 10 % steatosis) stage 1 (>/= S1: 11%-33% steatosis) stage 2 (>/= S2: 34%-66% steatosis) stage 3 (>/= S3: > 66% steatosis) Reference Rafael Y, Harsh Q, Rafael T, Lay J, Rafael H, Leobardo T. Controlled attenuation parameter for assessment of hepatic steatosis grades: a diagnostic meta-analysis. Int J Clin Exp Med. 2015 Jun 15;8(10):50572-38. PMID: 84021000; PMCID: [id number]. Fatuma Braswell, Janette ZELAYA, Deuce M, Rob F, Scarlet J, Ling O, Deepika F, Samy M, Nalini G, Kylee A, Louis E, Za L, Leigh Ann G, Blanche A, Jamison U, Reema S, Hilda P, Villa V, Eaton V, Francesca Braswell, Marly GALE. Refining the Baveno elastography criteria for the definition of compensated advanced chronic liver disease. J Hepatol. 2020;74(5):9636-6056. doi: 10.1016/j.jhep.2020.11.050. Epub 2019Aug 24. PMID: 69350996. documented in this encounter [facility] 08-02-2023 History of Present illness Narrative No chief complaint on file. HPI: Patient presents today for office visit for follow up, DM: Reports overall feeling well. Unable to continue with Trulicity due to cost. Average with 115 went to 125-130 without. Did gain weight slightly since off. Medication side effects: No. 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 Watching diet: Yes. Unexpected weight loss: No. Polyuria, polydipsia: No. Vision Changes: [facility]. Is due to go back soon was told to come back in 6 months at last exam. Foot lesions or numbness or pain: No. Does not wear diabetic shoes. HTN: Patient is compliant with meds Yes Monitors bp at home: not regular but once in awhile. Denies side effects: Yes. Chest pain: No. Dyspnea: No. Edema: No. Palpitations: No. Syncope: No. Headache: No. Dizziness: No. Seeing gi for fatty liver. Still seeing cardiology. Is using her cpap. Sleeping well. Benefiting from its use. Seeing Dr Ennis. MEDICATIONS: Current Outpatient Medications Medication Sig losartan (COZAAR) 100 mg tablet Take 1 tablet by mouth once daily. hydroCHLOROthiazide 25 mg tablet Take 1 tablet by mouth once daily. meloxicam (MOBIC) 15 mg tablet Take 1 tablet by mouth once daily. atorvastatin (LIPITOR) 80 mg tablet Take 1 tablet by mouth once daily. metFORMIN ER (FORTAMET) 500 mg 24 hr tablet Take 1 tablet by mouth daily with breakfast. May substitute amLODIPine (NORVASC) 10 mg tablet Take 10 mg by mouth once daily. Going to double check dosage. atenolol (TENORMIN) 50 mg tablet Take 50 mg by mouth once daily. Cholecalciferol, Vitamin D3, 50 mcg (2,000 unit) cap Take 50 capsules by mouth. aspirin, enteric coated (ASPIRIN, ENTERIC COATED) 81 mg EC tablet Take 81 mg by mouth once daily. FOLIC ACID/MULTIVIT-MIN/LUTEIN (CENTRUM SILVER ORAL) Take by mouth once daily. Biotin 10,000 mcg cap Take 5,000 mcg by mouth once daily. KRILL OIL ORAL Take 800 mg by mouth once daily. dulaglutide (TRULICITY) 1.5 mg/0.5 mL pen injector Inject 1.5 mg subcutaneously one time a week. Inject once per week. Discard Pen After clobetasol (TEMOVATE) 0.05 % ointment Apply 1 application to affected area as directed. TO AFFECTED AREA 1-2 times a week for control of lichen sclerosis. blood sugar diagnostic (BLOOD GLUCOSE TEST) test strip Test blood sugar(s) 1 times daily. Dx: Type 2 DM - Controlled E11.9 Insulin: No Lancets lancets Test blood sugar(s) 1 times daily. Dx: Type 2 DM - Controlled E11.9 Insulin: No L. acidophilus-L. rhamnosus 15 billion cell cap Take 1 capsule by mouth once daily. FLORAJEN WOMEN. If on antibiotic, take at least 1-2 hours before or after antibiotic. KEEP REFRIGERATED neomycin/polymyxin B/dexametha ([id number] OPHTHALMIC) Use in eyes as needed. (Patient not taking: Reported on 06/21/2023) Clobetasol taper - compound [facility] Clobetasol 0.07% ointment. Use to affected area twice daily x 4 weeks then at bedtime x 4 weeks then 1-2 times per week. No current facility-administered medications for this visit. ALLERGIES: ALLERGIES Allergen Reactions Erythromycin Rash Miroslava Inhibitors Cough Atenolol Intolerance Sweating, hard time breathing Carvedilol Intolerance Slight headache, leg cramps, sweating Corgard [Nadolol] Intolerance Heavy chest, sweating, hot flashes Diltiazem Intolerance Dizzy/ heart thumping, heard to breathe Metoprolol Intolerance Chest tight, hot flash/sweat Tetracycline Hcl (B* Hives blisters Verapamil Intolerance Short of breath, fatigue, indigestion, rash PAST MEDICAL HISTORY Diagnosis Date Arthritis Diabetes (HCC) Family history of colon cancer Hx of colonic polyps Hypertension Lichen sclerosus et atrophicus ELVER (obstructive sleep apnea) uses cpap. sees Dr. Walters. Snoring TIA (transient ischemic attack) 2014 PAST SURGICAL HISTORY Procedure Laterality Date BACK SURGERY HX BREAST BX NEEDLE CORE LEFT Left 06/19/2022 ultrasound guided needle core biopsy left breast BREAST SURGERY HX 07/11/2022 left breast lumpectomy COLONOSCOPY FLX DX W/COLLJ SPEC WHEN PFRMD 08/25/2015 Colonoscopy COLONOSCOPY FLX DX W/COLLJ SPEC WHEN PFRMD 02/25/2020 Colonoscopy 5 yr interval ESOPHAGOGASTRODUODENOSCOPY TRANSORAL DIAGNOSTIC 02/25/2020 esophagitis, intestinal metaplasia on stomach biopsies. Repeat in 2-3 years HAND SURGERY HX several on both hands HYSTERECTOMY HX with subsequent BSO KIDNEY SURGERY HX 1997 left kidney removed from cancer LEFT HEART CATH,PERCUTANEOUS normal per Dr. Cheema TONSILLECTOMY & ADENOIDECTOMY <AGE 12 FAMILY HISTORY Problem Relation Age of Onset Heart disease Mother Emphysema Mother Colon Cancer Father Heart Father Diabetes Brother other (diverticulitis) Maternal Grandmother Heart Attack Maternal Grandmother No Known Problems Maternal Grandfather Diabetes Paternal Grandmother Heart Attack Paternal Grandfather Stroke Paternal Grandfather Social History Tobacco Use Smoking status: Former Packs/day: 1 Types: Cigarettes Quit date: 12/24/2009 Years since quittin.6 Smokeless tobacco: Never Vaping Use Vaping Use: Former Substance Use Topics Alcohol use: Not Currently Comment: rarely Drug use: No Reviewed current medications, allergies, past medical history, surgical history, family history and social history today. REVIEW OF SYSTEMS All other reviewed and negative other than HPI. HEALTH MAINTENANCE: Reviewed health maintenance issues today and recommended the following in detail. Hepatitis B Vaccine(1 of 3 - Risk 3-dose series) Never done RSV Vaccine(1 - 1-dose 60+ series) Never done Dilated Retinal Exam -sees eye doc. HbA1C due on 07/24/2023 Diabetic Foot Exam due on 08/01/2023 Urine Albumin:Creatinine Ratio due on 08/16/2023 LDL Cholesterol due on 08/16/2023 VITALS: BP 122/72 Pulse (!) 55 Wt 113.9 kg (251 lb) SpO2 95% BMI 41.13 kg/m Last 4 Encounter Wt Readings: Date: Wt: 06/21/2023 112.2 kg (247 lb 4 oz) 01/21/2023 119.3 kg (263 lb) 11/02/2022 125.5 kg (276 lb 9.6 oz) 10/11/2022 126.5 kg (278 lb 12.8 oz) PHYSICAL EXAMINATION: General appearance: Well appearing, alert, in no acute distress, well-hydrated, well nourished. Skin: Skin color, texture, turgor normal, no suspicious rashes or lesions Head: Normocephalic, no masses, lesions, tenderness or abnormalities Lungs: Lungs clear to auscultation. No wheezing, rhonchi, rales Heart: RRR without murmur, gallop, or rubs. No ectopy Abdomen: Normal abdominal exam, Abdomen soft, non-tender. Bowel sounds normal. No masses, organomegaly Extremities: No deformities, edema, skin discoloration, clubbing or cyanosis. Good capillary refill. Musculoskeletal: No joint swelling, deformity, or tenderness Feet:Shoes and socks removed, No deformities, ulcers, calluses, normal distal pulses, and sensitive to 10 gm monofilament ASSESSMENT/PLAN: 1. Primary hypertension - ICD9: 401.9, ICD10: I10 (primary diagnosis) - Controlled - Continue current medications - LIPID PANEL BASIC - BASIC METABOLIC PNL 2. Pulmonary HTN (HCC) - ICD9: 416.8, ICD10: I27.20 - stable. 3. Congestive heart failure, unspecified HF chronicity, unspecified heart failure type (HCC) - ICD9: 428.0, ICD10: I50.9 - stable. 4. Nonobstructive atherosclerosis of coronary artery - ICD9: 414.00, ICD10: I25.10 - call if any issues. 5. ELVER (obstructive sleep apnea) - ICD9: 327.23, ICD10: G47.33 - stable. 6. Hyperlipidemia, unspecified hyperlipidemia type - ICD9: 272.4, ICD10: E78.5 - Controlled - Continue current medications 7. Controlled type 2 diabetes mellitus without complication, without long-term current use of insulin (HCC) - ICD9: 250.00, ICD10: E11. - HGB A1C - ALBUMIN/CREAT RATIO RND UR 8. Psoriatic arthritis (HCC) - ICD9: 696.0, ICD10: L40.50 - stable. 9. TIA (transient ischemic attack) - ICD9: 435.9, ICD10: G45.9 - stable. 10. Obesity, Class III, BMI 40-49.9 (morbid obesity) (HCC) - ICD9: 278.01, ICD10: E66.01 - stable. 11. Fatty liver - ICD9: 571.8, ICD10: K76.0 - stable. Seeing gi. Pedro Jacob MD documented in this encounter [facility] 08-01-2023 Miscellaneous Notes OK to refill as ordered Brittany Irizarry MD Routing to iron installer d/t provider is out of office. Patient has been identified by name and date of : Yes Patient phones for refill(s): Requested Prescriptions Pending Prescriptions Disp Refills losartan (COZAAR) 100 mg tablet 90 tablet 3 Sig: Take 1 tablet by mouth once daily. hydroCHLOROthiazide 25 mg tablet 90 tablet 1 Sig: Take 1 tablet by mouth once daily. meloxicam (MOBIC) 15 mg tablet 90 tablet 1 Sig: Take 1 tablet by mouth once daily. Date of last office visit in primary care: 01/21/2023 Date of next office visit in primary care: 08/02/2023 Last 2 Encounter Wt Readings: Date: Wt: 06/21/2023 112.2 kg (247 lb 4 oz) 01/21/2023 119.3 kg (263 lb) Please advise. Thank you. BETHANY Thompson. documented in this encounter [facility] 06-26-2023 History of Present illness Narrative Radiology Service Progress Note PATIENT NAME: Lisandra Abreu DATE OF SERVICE: June 26, 2023 TIME: 4:49 PM PATIENT IDENTITY VERIFICATION COMPLETED USING TWO (2) IDENTIFIERS: Name and Date of confirmed by patient verbally. FALL SCREENING: Has the patient had 2 falls in the last year or 1 fall with injury or currently using an Ambulatory Assistive Device (Walker, Cane, Wheelchair, Crutches, etc.)? No PATIENT GENDER DATA: Female. status: : No status: NO. PATIENT RELEVANT IMPLANT DATA REVIEWED: Not Applicable RADIOLOGY DEPARTMENT: Ultrasound PERIPHERAL IV DATA: Not applicable SIGNED BY: Joan Zamora RDMS RVT June 26, 2023 4:49 PM documented in this encounter [facility] 06-21-2023 History of Present illness Narrative NAME: Lisandra Abreu [facility] NO: [id number] REFERRING PHYSICIAN: Self PRESENTING COMPLAINT: Follow up hepatic steatosis/advanced fibrosis HPI: Lisandra Abreu is a pleasant 67 year old female is here on follow up for hepatic steatosis/advanced fibrosis/bridging fibrosis (3 of 4) per biopsy Complications of liver disease include none. ERNIE 12/20/2022 (virtual). She is here with her today. PMHx includes CHF, HLD, HTN, Pulmonary HTN, ELVER, DM Type II, psoriasis, Lichen sclerosus and obesity. S/p nephrectomy kidney Ca, no chemo or radiation. Interval Hx: LFTs WNL, synthetic liver function is preserved Due for ultrasound liver Has lost about 40 pounds Was doing fasting, then Nutri System, no longer either Has to work on exercising, was doing okay in the summer, but not so much now Was prescribed Trulicity in January, has helped with her glucose, but is now too expensive; discussed increasing her Metformin, she will discuss with her PCP Patient denies RUQ pain, shortness of breath, signs of fluid retention, fever, chills, nausea, jaundice, dark colored urine, pale colored stools, constipation, diarrhea, hematemesis, melena, decreased appetite, muscle wasting, confusion, weight loss and fatigue REVIEW OF SYSTEMS GENERAL: No unexplained weight changes or fevers. HEENT: Negative for severe headaches, negative for changes in hearing or vision. NECK: Negative for lumps, masses or pain. RESPIRATORY: Negative for coughing, wheezing or significant dyspnea. CARDIOVASCULAR: Negative for chest pain or heart palpitations. GASTROINTESTINAL: Negative for rectal bleeding or black tarry stools. GENITOURINARY: Negative for dysuria or urinary incontinence. MUSCULOSKELETAL: Negative for unexplained joint pains, dislocations or fractures. NEUROLOGIC: Negative for unexplained weakness or vertigo. SKIN: Negative for new lesions or rashes. ENDOCRINE: Negative for cold or heat intolerance . Current Outpatient Medications Medication Sig Dispense Refill atorvastatin (LIPITOR) 80 mg tablet Take 1 tablet by mouth once daily. 90 tablet 1 dulaglutide (TRULICITY) 1.5 mg/0.5 mL pen injector Inject 1.5 mg subcutaneously one time a week. Inject once per week. Discard Pen After 2 mL 11 meloxicam (MOBIC) 15 mg tablet Take 1 tablet by mouth once daily. 90 tablet 1 clobetasol (TEMOVATE) 0.05 % ointment Apply 1 application to affected area as directed. TO AFFECTED AREA 1-2 times a week for control of lichen sclerosis. 60 g 3 blood sugar diagnostic (BLOOD GLUCOSE TEST) test strip Test blood sugar(s) 1 times daily. Dx: Type 2 DM - Controlled E11.9 Insulin: No 50 Strip 11 Lancets lancets Test blood sugar(s) 1 times daily. Dx: Type 2 DM - Controlled E11.9 Insulin: No 100 Each 11 hydroCHLOROthiazide 25 mg tablet Take 1 tablet by mouth once daily. 90 tablet 1 metFORMIN ER (FORTAMET) 500 mg 24 hr tablet Take 1 tablet by mouth daily with breakfast. May substitute 90 tablet 3 L. acidophilus-L. rhamnosus 15 billion cell cap Take 1 capsule by mouth once daily. FLORAJEN WOMEN. If on antibiotic, take at least 1-2 hours before or after antibiotic. KEEP REFRIGERATED 30 capsule 11 losartan (COZAAR) 100 mg tablet Take 1 tablet by mouth once daily. 90 tablet 3 amLODIPine (NORVASC) 10 mg tablet Take 10 mg by mouth once daily. Going to double check dosage. atenolol (TENORMIN) 50 mg tablet Take 50 mg by mouth once daily. neomycin/polymyxin B/dexametha ([id number]-MPRXJSJP OPHTHALMIC) Use in eyes as needed. Cholecalciferol, Vitamin D3, 50 mcg (2,000 unit) cap Take 50 capsules by mouth. aspirin, enteric coated (ASPIRIN, ENTERIC COATED) 81 mg EC tablet Take 81 mg by mouth once daily. Clobetasol taper - compound [facility] Clobetasol 0.07% ointment. Use to affected area twice daily x 4 weeks then at bedtime x 4 weeks then 1-2 times per week. 1 Tube 2 FOLIC ACID/MULTIVIT-MIN/LUTEIN (CENTRUM SILVER ORAL) Take by mouth once daily. Biotin 10,000 mcg cap Take 5,000 mcg by mouth once daily. KRILL OIL ORAL Take 800 mg by mouth once daily. No current facility-administered medications for this visit. ALLERGIES Allergen Reactions Erythromycin Rash Miroslava Inhibitors Cough Atenolol Intolerance Sweating, hard time breathing Carvedilol Intolerance Slight headache, leg cramps, sweating Corgard [Nadolol] Intolerance Heavy chest, sweating, hot flashes Diltiazem Intolerance Dizzy/ heart thumping, heard to breathe Metoprolol Intolerance Chest tight, hot flash/sweat Tetracycline Hcl (B* Hives blisters Verapamil Intolerance Short of breath, fatigue, indigestion, rash Social History Tobacco Use Smoking status: Former Packs/day: 1 Types: Cigarettes Quit date: 12/24/2009 Years since quittin.4 Smokeless tobacco: Never Vaping Use Vaping Use: Former Substance Use Topics Alcohol use: Not Currently Comment: rarely Drug use: No PAST MEDICAL HISTORY Diagnosis Date Arthritis Diabetes (HCC) Family history of colon cancer Hx of colonic polyps Hypertension Lichen sclerosus et atrophicus ELVER (obstructive sleep apnea) uses cpap. sees Dr. Walters. Snoring TIA (transient ischemic attack) 2015 @[facility]@ FAMILY HISTORY Problem Relation Age of Onset Heart disease Mother Emphysema Mother Colon Cancer Father Heart Father Diabetes Brother other (diverticulitis) Maternal Grandmother Heart Attack Maternal Grandmother No Known Problems Maternal Grandfather Diabetes Paternal Grandmother Heart Attack Paternal Grandfather Stroke Paternal Grandfather PHYSICAL EXAM 06/21/23 1101 BP: 114/73 Pulse: 81 Resp: 16 Weight: 112.2 kg (247 lb 4 oz) Height: 166.4 cm (5' 5.5) General Appearance: Well appearing, alert, in no acute distress, well-hydrated, well nourished. Eyes: Conjunctiva and sclera normal Oropharynx: Lips, tongue, and oral mucosa normal. There is no thrush or oral ulcers. Abdomen: not distended Extremities: no cyanosis or edema Skin: no jaundice, no spider angiomas, no palmar erythema Neuro:alert, oriented x 3, pleasant and in no acute distress Recent Labs: Hemoglobin (g/dL) Date Value 06/13/2023 13.7 07/20/2021 14.3 Hematocrit (%) Date Value 06/13/2023 43.3 07/20/2021 45.0 WBC (k/uL) Date Value 06/13/2023 7.51 07/20/2021 7.69 Glucose (mg/dL) Date Value 06/13/2023 108 07/20/2021 120 Potassium (mmol/L) Date Value 06/13/2023 4.0 07/20/2021 4.2 Sodium (mmol/L) Date Value 06/13/2023 140 07/20/2021 139 Chloride (mmol/L) Date Value 06/13/2023 102 07/20/2021 101 CO2 (mmol/L) Date Value 06/13/2023 25 07/20/2021 21 Creatinine (mg/dL) Date Value 06/13/2023 1.00 07/20/2021 0.94 BUN (mg/dL) Date Value 06/13/2023 25 07/20/2021 19 Anion Gap (mmol/L) Date Value 06/13/2023 13 07/20/2021 17 Calcium (mg/dL) Date Value 07/20/2021 10.1 Calcium, Total (mg/dL) Date Value 06/13/2023 10.1 Albumin (g/dL) Date Value 06/13/2023 4.6 Bilirubin, Total (mg/dL) Date Value 06/13/2023 0.5 Bilirubin, Conjugated (mg/dL) Date Value 08/16/2022 <0.2 Alkaline Phosphatase (U/L) Date Value 06/13/2023 100 AST (U/L) Date Value 06/13/2023 25 ALT (U/L) Date Value 06/13/2023 32 Protein, Total (g/dL) Date Value 06/13/2023 7.3 Computed MELD 3.0 unavailable. Necessary lab results were not found in the last year. Computed MELD-Na unavailable. Necessary lab results were not found in the last year. Imaging: No updated imaging Assessment IMPRESSION -Reviewed available labs and imaging with the patient -Discussed the natural history of liver disease, up to and including cirrhosis -Discussed possible causes of liver enzyme elevation -Discussed the natural history of fatty liver, risk factors and the possibility of progression to cirrhosis -Discussed metabolic syndrome, risk factors, the importance of control of MES risk factors -Discussed Hepatic fibrosis/steatosis staging: Fibroscan, specific to the patient's past Fibroscan results -Discussed the effect of alcohol use on liver enzymes and the liver -Discussed a healthy, Mediterranean diet with lean proteins, fresh fruits and vegetables, low carb and low sugar -Discussed regular aerobic exercise as tolerated with a goal of 40-45 minutes per day at least 5 days per week -Discussed regular follow up for Hepatic steatosis with bridging fibrosis. PLAN (K76.0) Hepatic steatosis (primary encounter diagnosis) -Fibroscan for updated hepatic fibrosis/steatosis staging -US Abd RUQ now and in six months for hepatic morphology and HCC screening -CMP, CBC, PT and AFP for liver enzymes, function, MELD calculation and HCC screening -Continue to work on weight loss -Maintain a healthy diet -Regular exercise -Work with your PCP to control MES risk factors Follow up in 6 months. Please contact sooner if you have questions or problems develop. Olga Valdovinos APRN.CNP June 19, 2023 2:13 PM documented in this encounter [facility] 04-23-2023 Miscellaneous Notes Patient has been identified by name and date of : Yes, Provider [place] Date 04-23-23. Next appt: Time 12:51 pm Pharmacy phones for refill(s): Requested Prescriptions Pending Prescriptions Disp Refills atorvastatin (LIPITOR) 80 mg tablet 90 tablet 1 Sig: Take 1 tablet by mouth once daily. Date of last office visit with pcp: 01-21-23. Next appt: none Last 2 Encounter Wt Readings: Date: Wt: 01/21/2023 119.3 kg (263 lb) 11/02/2022 125.5 kg (276 lb 9.6 oz) Previous labs/tests for medication: Cholesterol: HDL Cholesterol (mg/dL) Date Value 08/16/2022 53 07/20/2021 50 LDL Cholesterol (mg/dL) Date Value 08/16/2022 64 07/20/2021 64 ALT (U/L) Date Value 11/02/2022 49 10/10/2021 36 Non HDL Cholesterol (mg/dL) Date Value 08/16/2022 92 07/20/2021 87 Please advise. Thank you. French Bishop RN documented in this encounter [facility] 01-30-2023 History of Present illness Narrative Radiology Service Progress Note PATIENT NAME: Lisandra Abreu DATE OF SERVICE: January 30, 2023 TIME: 10:08 AM PATIENT IDENTITY VERIFICATION COMPLETED USING TWO (2) IDENTIFIERS: Name and Date of confirmed by patient verbally. FALL SCREENING: Has the patient had 2 falls in the last year or 1 fall with injury or currently using an Ambulatory Assistive Device (Walker, Cane, Wheelchair, Crutches, etc.)? No PATIENT GENDER DATA: Female. status: : No status: NO. PATIENT RELEVANT IMPLANT DATA REVIEWED: Not Applicable RADIOLOGY DEPARTMENT: Ultrasound PERIPHERAL IV DATA: Not applicable SIGNED BY: Rahel Najera RDMS January 30, 2023 10:08 AM documented in this encounter [facility] 01-21-2023 Miscellaneous Notes Patient has been identified by name and date of : Yes Requested Prescriptions Pending Prescriptions Disp Refills meloxicam (MOBIC) 15 mg tablet 90 tablet 1 Sig: Take 1 tablet by mouth once daily. RX INSTRUCTIONS: Patient aware RX will be sent to pharmacy. No need to notify patient. Patient last office visit: 01/21/23 Patient next office visit: 07/25/23 Iman Hayes MA documented in this encounter [facility] 01-21-2023 History of Present illness Narrative Patient presents with: 6 Month Exam HPI: Patient presents today for office visit for follow up. CARDIO:saw cardiology. Had heart cath that showed mild disease. No chest pain or shortness of breath. GASTROENTEROLOGY:diagnosed with Valdes. Had liver biopsy. Working on diet. Sugars have been 122 average. Would like to try to bring her sugars below 100. Discussed trying something like a trulicity. Still having arthritic issues. Still using her cpap. Is benefiting her. MEDICATIONS: Current Outpatient Medications Medication Sig clobetasol (TEMOVATE) 0.05 % ointment Apply 1 application to affected area as directed. TO AFFECTED AREA 1-2 times a week for control of lichen sclerosis. blood sugar diagnostic (BLOOD GLUCOSE TEST) test strip Test blood sugar(s) 1 times daily. Dx: Type 2 DM - Controlled E11.9 Insulin: No Lancets lancets Test blood sugar(s) 1 times daily. Dx: Type 2 DM - Controlled E11.9 Insulin: No hydroCHLOROthiazide 25 mg tablet Take 1 tablet by mouth once daily. metFORMIN ER (FORTAMET) 500 mg 24 hr tablet Take 1 tablet by mouth daily with breakfast. May substitute atorvastatin (LIPITOR) 80 mg tablet Take 1 tablet by mouth once daily. L. acidophilus-L. rhamnosus 15 billion cell cap Take 1 capsule by mouth once daily. FLORAJEN WOMEN. If on antibiotic, take at least 1-2 hours before or after antibiotic. KEEP REFRIGERATED losartan (COZAAR) 100 mg tablet Take 1 tablet by mouth once daily. meloxicam (MOBIC) 15 mg tablet Take 1 tablet by mouth once daily. amLODIPine (NORVASC) 10 mg tablet Take 10 mg by mouth once daily. Going to double check dosage. atenolol (TENORMIN) 50 mg tablet Take 50 mg by mouth once daily. neomycin/polymyxin B/dexametha ([id number] OPHTHALMIC) Use in eyes as needed. Cholecalciferol, Vitamin D3, 50 mcg (2,000 unit) cap Take 50 capsules by mouth. aspirin, enteric coated (ASPIRIN, ENTERIC COATED) 81 mg EC tablet Take 81 mg by mouth once daily. Clobetasol taper - compound [facility] Clobetasol 0.07% ointment. Use to affected area twice daily x 4 weeks then at bedtime x 4 weeks then 1-2 times per week. FOLIC ACID/MULTIVIT-MIN/LUTEIN (CENTRUM SILVER ORAL) Take by mouth once daily. Biotin 10,000 mcg cap Take 5,000 mcg by mouth once daily. KRILL OIL ORAL Take 800 mg by mouth once daily. No current facility-administered medications for this visit. ALLERGIES: ALLERGIES Allergen Reactions Erythromycin Rash Miroslava Inhibitors Cough Atenolol Intolerance Sweating, hard time breathing Carvedilol Intolerance Slight headache, leg cramps, sweating Corgard [Nadolol] Intolerance Heavy chest, sweating, hot flashes Diltiazem Intolerance Dizzy/ heart thumping, heard to breathe Metoprolol Intolerance Chest tight, hot flash/sweat Tetracycline Hcl (B* Hives blisters Verapamil Intolerance Short of breath, fatigue, indigestion, rash PAST MEDICAL HISTORY Diagnosis Date Arthritis Diabetes (HCC) Family history of colon cancer Hx of colonic polyps Hypertension Lichen sclerosus et atrophicus ELVER (obstructive sleep apnea) uses cpap. sees Dr. Walters. Snoring TIA (transient ischemic attack) 2014 PAST SURGICAL HISTORY Procedure Laterality Date BACK SURGERY HX BREAST BX NEEDLE CORE LEFT Left 06/19/2022 ultrasound guided needle core biopsy left breast BREAST SURGERY HX 07/11/2022 left breast lumpectomy COLONOSCOPY FLX DX W/COLLJ SPEC WHEN PFRMD 08/25/2015 Colonoscopy COLONOSCOPY FLX DX W/COLLJ SPEC WHEN PFRMD 02/25/2020 Colonoscopy 5 yr interval ESOPHAGOGASTRODUODENOSCOPY TRANSORAL DIAGNOSTIC 02/25/2020 esophagitis, intestinal metaplasia on stomach biopsies. Repeat in 2-3 years HAND SURGERY HX several on both hands HYSTERECTOMY HX with subsequent BSO KIDNEY SURGERY HX 1997 left kidney removed from cancer LEFT HEART CATH,PERCUTANEOUS normal per Dr. Cheema TONSILLECTOMY & ADENOIDECTOMY <AGE 12 FAMILY HISTORY Problem Relation Age of Onset Heart disease Mother Emphysema Mother Colon Cancer Father Heart Father Diabetes Brother other (diverticulitis) Maternal Grandmother Heart Attack Maternal Grandmother No Known Problems Maternal Grandfather Diabetes Paternal Grandmother Heart Attack Paternal Grandfather Stroke Paternal Grandfather Social History Tobacco Use Smoking status: Former Packs/day: 1.00 Types: Cigarettes Quit date: 12/24/2009 Years since quittin.0 Smokeless tobacco: Never Vaping Use Vaping Use: Former Substance Use Topics Alcohol use: Not Currently Comment: rarely Drug use: No Reviewed current medications, allergies, past medical history, surgical history, family history and social history today. REVIEW OF SYSTEMS All other reviewed and negative other than HPI. HEALTH MAINTENANCE: Reviewed health maintenance issues today and recommended the following in detail. BP CONTROLLED (<130/80) Never done ADVANCE DIRECTIVE DISCUSSION - completing it. DEPRESSION ASSESSMENT due on 09/16/2022 HBA1C due on 01/03/2023 DILATED RETINAL EXAM-is overdue. Sees them on [facility]. VITALS: BP 100/76 Pulse (!) 57 Ht 166.4 cm (5' 5.5) Wt 119.3 kg (263 lb) SpO2 97% BMI 43.10 kg/m Last 4 Encounter Wt Readings: Date: Wt: 01/21/2023 119.3 kg (263 lb) 11/02/2022 125.5 kg (276 lb 9.6 oz) 10/11/2022 126.5 kg (278 lb 12.8 oz) 08/03/2022 123.4 kg (272 lb) PHYSICAL EXAMINATION: General appearance: Well appearing, alert, in no acute distress, well-hydrated, well nourished. Skin: Skin color, texture, turgor normal, no suspicious rashes or lesions Head: Normocephalic, no masses, lesions, tenderness or abnormalities Eyes: Anicteric sclera. Pupils are equally round and reactive to light. Extraocular movements are intact. Ears: External ears normal, canals clear Neck: Supple, no adenopathy Lungs: Lungs clear to auscultation. No wheezing, rhonchi, rales Heart: RRR without murmur, gallop, or rubs. No ectopy Abdomen: Normal abdominal exam, Abdomen soft, non-tender. Bowel sounds normal. No masses, organomegaly Extremities: No deformities, edema, skin discoloration, clubbing or cyanosis. Good capillary refill. ASSESSMENT/PLAN: 1. Primary hypertension - ICD9: 401.9, ICD10: I10 (primary diagnosis) - good control - Continue current medication(s) - Goal of BP <130/80 2. Pulmonary HTN (HCC) - ICD9: 416.8, ICD10: I27.20 - per cardiology 3. Congestive heart failure, unspecified HF chronicity, unspecified heart failure type (HCC) - ICD9: 428.0, ICD10: I50.9 - stable. 4. Hyperlipidemia, unspecified hyperlipidemia type - ICD9: 272.4, ICD10: E78.5 - doing well. 5. Aortic valve stenosis, etiology of cardiac valve disease unspecified - ICD9: 424.1, ICD10: I35.0 - no issues. 6. History of renal cell cancer - ICD9: V10.52, ICD10: Z85.528 - was over 20 years ago 7. ELVER (obstructive sleep apnea) - ICD9: 327.23, ICD10: G47.33 - treating and doing well. 8. Psoriatic arthritis (HCC) - ICD9: 696.0, ICD10: L40.50 - can send back to rheum if any issues. 9. Controlled type 2 diabetes mellitus without complication, without long-term current use of insulin (HCC) - ICD9: 250.00, ICD10: E11.9 - follow sugars. Call list in two weeks. Start trulicity. Discussed risks and benefits of new medication with the patient. Advised them to call if any side effects or questions. - HGB A1C - TRULICITY 0.75 MG/0.5 ML SUBCUTANEOUS PEN INJECTOR Pedro Jacob MD documented in this encounter [facility] 12-27-2022 Miscellaneous Notes Patient informed and verbalized understanding. Megha Robledo Had mammogram. Radiology is requesting better views of right breast. This happens commonly. Orders given. documented in this encounter [facility] 12-27-2022 Miscellaneous Notes December 28, 2022 PID: [id number] Lisandra Abreu [address] [place] [id number] Dear Ms. Abreu, Your recent breast imaging exam on 12/26/2022 showed a possible finding that requires additional imaging studies for a complete evaluation. Most such findings are probably benign (not cancer). If you have a healthcare provider who ordered/prescribed your screening mammogram: Please call [phone] or [phone]: [phone] to schedule an appointment for your additional imaging (if you have not already done so). If you DO NOT have a healthcare provider (ie you did not have an order/prescription for your screening mammogram): Please call to schedule an appointment for your additional imaging (if you have not already done so). You must have an order/prescription from your physician when calling to schedule your appointment. If your order/prescription is not electronic, you must bring the hard copy with you on the day of your exam to avoid delays. Your imaging studies and reports are kept on file at [facility] as part of your permanent medical record, and are available for your continuing care. Thank you for allowing us to help in meeting your health care needs. Sincerely, Dr. Garcia Interpreting Radiologist [facility] (Additional imaging) documented in this encounter [facility] 12-26-2022 Miscellaneous Notes Patient has been identified by name and date of : Yes, Provider [place] Date 12-26-22 Time 10:15 am Pharmacy phones for refill(s): Requested Prescriptions Pending Prescriptions Disp Refills hydroCHLOROthiazide 25 mg tablet 90 tablet 1 Sig: Take 1 tablet by mouth once daily. Date of last office visit with pcp: 08-03-22. Next appt: 01-21-23 Last 2 Encounter Wt Readings: Date: Wt: 11/02/2022 125.5 kg (276 lb 9.6 oz) 10/11/2022 126.5 kg (278 lb 12.8 oz) Previous labs/tests for medication: Blood Pressure: BUN (mg/dL) Date Value 11/02/2022 22 07/20/2021 19 Sodium (mmol/L) Date Value 11/02/2022 142 07/20/2021 139 Last 1 Encounter BP Readings: Date: BP: 11/26/2022 142/77 Please advise. Thank you. French Bishop RN documented in this encounter [facility] 12-26-2022 History of Present illness Narrative Radiology Service Progress Note PATIENT NAME: Lisandra Abreu DATE OF SERVICE: December 26, 2022 TIME: 8:33 AM PATIENT IDENTITY VERIFICATION COMPLETED USING TWO (2) IDENTIFIERS: Name and Date of confirmed by patient verbally. FALL SCREENING: Has the patient had 2 falls in the last year or 1 fall with injury or currently using an Ambulatory Assistive Device (Walker, Cane, Wheelchair, Crutches, etc.)? No PATIENT GENDER DATA: Female. status: : No status: NO. PATIENT RELEVANT IMPLANT DATA REVIEWED: Not Applicable RADIOLOGY DEPARTMENT: Mammography PERIPHERAL IV DATA: Not applicable SIGNED BY: Anju Loja December 26, 2022 8:33 AM documented in this encounter [facility] 12-24-2022 Miscellaneous Notes This nurse called and spoke with the patient. Patient reports understanding and will be keeping her scheduled appointment. Esha Eid RN Called patient, no answer. Did not leave voicemail, no identifying markers. Due to patient having lumpectomy, a 6 month follow up mammogram is required to screen. Yes patient needs to have mammogram done on 12/26/22. Brandie Otero LPN she is on screening Lisandra called with questions regarding a mammogram she has ordered and scheduled for 4/12/23. Patient wanting clarification on if it is needed since she recently had a lump removed from her breast by Dr. Templeton. She originally called Dr. Jacob's office and was given advice to clarify with Dr. Templeton. Esha Eid RN documented in this encounter [facility] 12-20-2022 History of Present illness Narrative VIRTUAL VISIT PROGRESS NOTE This is a virtual visit using Kereos video visit. It required patient-provider interaction for the medical decision making as documented below. I have communicated my name and active licensure. The patient's identity and physical location were verified at the time of this visit. Either the patient or their legal safety representative has been informed of the risks and benefits of -- and alternatives to -- treatment through a remote evaluation and consents to proceed with the evaluation remotely. ESTABLISHED PATIENT Lisandra Abreu is a 67 year old female seen for Follow up Fatty Liver. PMHx includes CHF, HLD, HTN, Pulmonary HTN, ELVER, DM Type II, psoriasis, Lichen sclerosus and obesity. S/p nephrectomy kidney Ca, no chemo or radiation. ERNIE 11/13/2022. From last visit note: Interval Hx: RHIANNA + 1:160 remainder chronic liver workup negative Labs: AP 102, AST 46, ALT 49, Total Bili, Albumin and Platelets WNL. Fibroscan: 11/02/2022: kpa 13.5, CAP 365 Please refer to get images report for individual readings Number of readings: 10 IQR %: 22 E (kpa): 13.5 CAP: 365 This reading corresponds: A 56% chance of stage 0-2 fibrosis A 43% chance of stage 3-4 fibrosis (advanced fibrosis) A 14% chance of stage 4 fibrosis (cirrhosis). Interval Hx: The patient had liver biopsy: IR KIAH liver biopsy: 12/11/2022 TRANSJUGULAR LIVER BIOPSY OBTAINED. THE CORRECTED SINUSOIDAL PRESSURE (WEDGED HEPATIC VEIN PRESSURE MINUS FREE HEPATIC VEIN PRESSURE) IS 3 MMHG. A. Liver, biopsy: - Steatohepatitis with bridging fibrosis (ANABELA stage 3 of 4). Since last visit, she has started [employer] and has lost about 12 pounds. She also purchased a stationary bike and uses it for about a half hour, 5 days per week. She has been feeling well with no symptoms of liver disease including HE, Bleeding and Fluid Retention. We discussed regular follow up for advanced fibrosis to include at least labs and imaging. Will continue to follow. HISTORY REVIEWED (electronic chart updated): PAST MEDICAL HISTORY Diagnosis Date Arthritis Diabetes (HCC) Family history of colon cancer Hx of colonic polyps Hypertension Lichen sclerosus et atrophicus ELVER (obstructive sleep apnea) uses cpap. sees Dr. Walters. Snoring TIA (transient ischemic attack) 2014 PAST SURGICAL HISTORY Procedure Laterality Date BACK SURGERY HX BREAST BX NEEDLE CORE LEFT Left 06/19/2022 ultrasound guided needle core biopsy left breast BREAST SURGERY HX 07/11/2022 left breast lumpectomy COLONOSCOPY FLX DX W/COLLJ SPEC WHEN PFRMD 08/25/2015 Colonoscopy COLONOSCOPY FLX DX W/COLLJ SPEC WHEN PFRMD 02/25/2020 Colonoscopy 5 yr interval ESOPHAGOGASTRODUODENOSCOPY TRANSORAL DIAGNOSTIC 02/25/2020 esophagitis, intestinal metaplasia on stomach biopsies. Repeat in 2-3 years HAND SURGERY HX several on both hands HYSTERECTOMY HX with subsequent BSO KIDNEY SURGERY HX 1997 left kidney removed from cancer LEFT HEART CATH,PERCUTANEOUS normal per Dr. Cheema TONSILLECTOMY & ADENOIDECTOMY <AGE 10 FAMILY HISTORY Problem Relation Age of Onset Heart disease Mother Emphysema Mother Colon Cancer Father Heart Father Diabetes Brother other (diverticulitis) Maternal Grandmother Heart Attack Maternal Grandmother No Known Problems Maternal Grandfather Diabetes Paternal Grandmother Heart Attack Paternal Grandfather Stroke Paternal Grandfather Social History Tobacco Use Smoking status: Former Packs/day: 1.00 Types: Cigarettes Quit date: 12/24/2009 Years since quittin.9 Smokeless tobacco: Never Vaping Use Vaping Use: Former Substance Use Topics Alcohol use: Not Currently Comment: rarely Drug use: No Current Outpatient Medications Medication Sig metFORMIN ER (FORTAMET) 500 mg 24 hr tablet Take 1 tablet by mouth daily with breakfast. May substitute atorvastatin (LIPITOR) 80 mg tablet Take 1 tablet by mouth once daily. L. acidophilus-L. rhamnosus 15 billion cell cap Take 1 capsule by mouth once daily. FLORAJEN WOMEN. If on antibiotic, take at least 1-2 hours before or after antibiotic. KEEP REFRIGERATED losartan (COZAAR) 100 mg tablet Take 1 tablet by mouth once daily. hydroCHLOROthiazide (HYDRODIURIL, ESIDRIX) 25 mg tablet Take 1 tablet by mouth once daily. meloxicam (MOBIC) 15 mg tablet Take 1 tablet by mouth once daily. amLODIPine (NORVASC) 10 mg tablet Take 10 mg by mouth once daily. Going to double check dosage. atenolol (TENORMIN) 50 mg tablet Take 50 mg by mouth once daily. neomycin/polymyxin B/dexametha ([id number]-[id number]-[id number] OPHTHALMIC) Use in eyes as needed. Cholecalciferol, Vitamin D3, 50 mcg (2,000 unit) cap Take 50 capsules by mouth. aspirin, enteric coated (ASPIRIN, ENTERIC COATED) 81 mg EC tablet Take 81 mg by mouth once daily. Clobetasol taper - compound [facility] Clobetasol 0.07% ointment. Use to affected area twice daily x 4 weeks then at bedtime x 4 weeks then 1-2 times per week. FOLIC ACID/MULTIVIT-MIN/LUTEIN (CENTRUM SILVER ORAL) Take by mouth once daily. Biotin 10,000 mcg cap Take 5,000 mcg by mouth once daily. KRILL OIL ORAL Take 800 mg by mouth once daily. No current facility-administered medications for this visit. ALLERGIES Allergen Reactions Erythromycin Rash Miroslava Inhibitors Cough Atenolol Intolerance Sweating, hard time breathing Carvedilol Intolerance Slight headache, leg cramps, sweating Corgard [Nadolol] Intolerance Heavy chest, sweating, hot flashes Diltiazem Intolerance Dizzy/ heart thumping, heard to breathe Metoprolol Intolerance Chest tight, hot flash/sweat Tetracycline Hcl (B* Hives blisters Verapamil Intolerance Short of breath, fatigue, indigestion, rash REVIEW OF SYSTEMS: GENERAL: feeling well without fatigue, no recent change in weight RESPIRATORY: no cough, no wheezing or shortness of breath CARDIOVASCULAR: no chest pain, no palpitations MUSCULOSKELETAL: denies any painful or swollen joints, no muscle aches NEURO: no numbness or paresthesias and no weakness of the extremities PHYSICAL EXAMINATION: VIDEO EXAM: (if completed, performed via video enabled technology) GENERAL: alert and appropriate, in no distress, well-hydrated, well nourished, and happy, smiling, interactive ASSESSMENT: -Zachary Abreu is a 67 year old female seen for Follow up Fatty Liver. PMHx includes CHF, HLD, HTN, Pulmonary HTN, ELVER, DM Type II, psoriasis, Lichen sclerosus and obesity. S/p nephrectomy kidney Ca, no chemo or radiation. Liver biopsy shows F3 (advanced fibrosis). Will continue to follow regularly for advanced hepatic fibrosis/fatty liver. -Reviewed available labs and imaging with the patient -Discussed the natural history of liver disease, up to and including cirrhosis -Discussed possible causes of liver enzyme elevation -Discussed the effect of alcohol use on liver enzymes and the liver -Discussed the natural history of fatty liver, risk factors and the possibility of progression to cirrhosis -Discussed metabolic syndrome, risk factors, the importance of control of MES risk factors -Discussed Hepatic fibrosis/steatosis staging: Fibroscan, specific to the patient's Fibroscan results -Discussed in detail, liver biopsy results -Discussed a healthy, Mediterranean diet with lean proteins, fresh fruits and vegetables, low carb and low sugar -Discussed regular aerobic exercise as tolerated with a goal of 40-45 minutes per day at least 5 days per week -Discussed upcoming testing for further evaluation for causes of liver enzyme elevation PLAN: (K74.02) Hepatic fibrosis, advanced fibrosis (K76.0) Fatty liver (primary encounter diagnosis) -US abd RUQ for liver morphology and HCC screening -CMP, CBC, PT and AFP for liver enzymes, function and HCC screening -Continue to work on weight loss -Maintain a healthy diet -Continue regular exercise -Work with your PCP to control MES risk factors -Regular follow up for advanced fibrosis. I spent a total of 40 minutes on the date of the service which included preparing to see the patient, [id number] patient care, completing clinical documentation, counseling and educating the patient/family/caregiver, and communicating results to the patient/family/caregiver Olga Valdovinos APRN.CNP documented in this encounter [facility] 12-19-2022 Miscellaneous Notes Patient informed to contact Dr. Templeton. Verbalized understanding. Megha Robledo I would verify with Dr Corey regarding follow up Pt. calling wanting to know is it to soon to have a screening mammogram when she just had diagnostic in June. Please advise. documented in this encounter [facility] 12-11-2022 Note HNO ID: [id number] Author: Celia Guidry RN Service: ? Author Type: Registered Nurse Type: Nursing Progress Note Filed: 12/11/2022 11:58 AM Note Text: 1145 pt given written and verbal dc instructions. Pt verbalized understanding. [facility] 12-07-2022 Miscellaneous Notes You are scheduled for a transjugular liver biopsy, On Sunday, December 11, 2022. You are to arrive at 8:30 am and Report to [facility] First Floor Radiology Registration Desk. You can expect to be here for about 4 hours. [facility] is located at: [address] [place] [address] Diet: Do not eat any solid food after midnight the day of/night before your procedure. You may drink clear liquids until 7:00 am, which means black coffee, apple juice, black tea, or water only. Medications: Ok to take your cardiac, blood pressure, anti-seizure, and chronic pain medications with a sip of water, please take prior to arrival. Bring your current medication list. Labs: Lab-work needs to be drawn? Yes, a CBC and INR needs to be drawn at least one day prior to procedure. Please bring a copy of the results if they are not done at a [facility] facility. . Anthropology Faculty Member/Transportation: How will you be arriving for your procedure? Private car. You will need a responsible adult to accompany you to and from the procedure. Your milk pickup truck driver is required to stay with you until you are taken into the procedure room. If you have any questions, please call, , Option 3. documented in this encounter [facility] 11-26-2022 Miscellaneous Notes Patient has been identified by name and date of : Yes Requested Prescriptions Pending Prescriptions Disp Refills metFORMIN ER (FORTAMET) 500 mg 24 hr tablet 90 tablet 3 Sig: Take 1 tablet by mouth daily with breakfast. May substitute Refused Prescriptions Disp Refills atorvastatin (LIPITOR) 80 mg tablet 90 tablet 1 Sig: Take 1 tablet by mouth once daily. RX INSTRUCTIONS: Scheduled 01/21/23 Vianney Blankenship LPN documented in this encounter [facility] 11-20-2022 Miscellaneous Notes You are scheduled for a Transjugular Liver Biopsy, On 11/26/2022. You are scheduled at 0900 am and Report to [facility]: Entrance A, Elevators to first floor, Ambulatory surgery waiting area on first floor. You can expect to be here for 4-8 hours. Diet: Do not eat any solid food or drink liquids after midnight the day of/night before your procedure. Medications: Ok to take your cardiac, blood pressure, anti-seizure, and chronic pain medications with a sip of water, please take prior to arrival. Bring your current medication list. Anthropology Faculty Member/Transportation: How will you be arriving for your procedure? Private car. You will need a responsible adult to accompany you to and from the procedure. Your milk pickup truck driver is required to stay with you until you are taken into the procedure room. documented in this encounter [facility] 11-13-2022 History of Present illness Narrative VIRTUAL VISIT PROGRESS NOTE This is a virtual visit using Kereos video visit. It required patient-provider interaction for the medical decision making as documented below. Lisandra Abreu is a 67 year old female seen for follow up elevated liver enzymes. ERNIE 11/02/2022. PMHx includes CHF, HLD, HTN, Pulmonary HTN, ELVER, DM Type II, psoriasis, Lichen sclerosus and obesity. S/p nephrectomy kidney Ca, no chemo or radiation. Interval Hx: RHIANNA + 1:160 remainder chronic liver workup negative Labs: AP 102, AST 46, ALT 49, Total Bili, Albumin and Platelets WNL. Fibroscan: 11/02/2022: kpa 13.5, CAP 365 Please refer to get images report for individual readings Number of readings: 10 IQR %: 22 E (kpa): 13.5 CAP: 365 This reading corresponds: A 56% chance of stage 0-2 fibrosis A 43% chance of stage 3-4 fibrosis (advanced fibrosis) A 14% chance of stage 4 fibrosis (cirrhosis). She has not been feeling well. Has a really bad chest cold. A lot of fatigue. Patient denies RUQ pain, shortness of breath, signs of fluid retention, fever, chills, nausea, jaundice, dark colored urine, pale colored stools, constipation, diarrhea, hematemesis, melena, decreased appetite, muscle wasting, confusion and weight loss. Will proceed with a liver biopsy to confirm fibrosis staging and evaluate for significance of +RHIANNA. HISTORY REVIEWED (electronic chart updated): PAST MEDICAL HISTORY Diagnosis Date Arthritis Diabetes (HCC) Family history of colon cancer Hx of colonic polyps Hypertension Lichen sclerosus et atrophicus ELVER (obstructive sleep apnea) uses cpap. sees Dr. Walters. Snoring TIA (transient ischemic attack) 2014 PAST SURGICAL HISTORY Procedure Laterality Date BACK SURGERY HX BREAST BX NEEDLE CORE LEFT Left 06/19/2022 ultrasound guided needle core biopsy left breast BREAST SURGERY HX 07/11/2022 left breast lumpectomy COLONOSCOPY FLX DX W/COLLJ SPEC WHEN PFRMD 08/25/2015 Colonoscopy COLONOSCOPY FLX DX W/COLLJ SPEC WHEN PFRMD 02/25/2020 Colonoscopy 5 yr interval ESOPHAGOGASTRODUODENOSCOPY TRANSORAL DIAGNOSTIC 02/25/2020 esophagitis, intestinal metaplasia on stomach biopsies. Repeat in 2-3 years HAND SURGERY HX several on both hands HYSTERECTOMY HX with subsequent BSO KIDNEY SURGERY HX 1997 left kidney removed from cancer LEFT HEART CATH,PERCUTANEOUS normal per Dr. Cheema TONSILLECTOMY & ADENOIDECTOMY <AGE 10 FAMILY HISTORY Problem Relation Age of Onset Heart disease Mother Emphysema Mother Colon Cancer Father Heart Father Diabetes Brother other (diverticulitis) Maternal Grandmother Heart Attack Maternal Grandmother No Known Problems Maternal Grandfather Diabetes Paternal Grandmother Heart Attack Paternal Grandfather Stroke Paternal Grandfather Social History Tobacco Use Smoking status: Former Packs/day: 1.00 Types: Cigarettes Quit date: 12/24/2009 Years since quittin.8 Smokeless tobacco: Never Vaping Use Vaping Use: Former Substance Use Topics Alcohol use: Not Currently Comment: rarely Drug use: No Current Outpatient Medications Medication Sig atorvastatin (LIPITOR) 80 mg tablet Take 1 tablet by mouth once daily. L. acidophilus-L. rhamnosus 15 billion cell cap Take 1 capsule by mouth once daily. FLORAJEN WOMEN. If on antibiotic, take at least 1-2 hours before or after antibiotic. KEEP REFRIGERATED losartan (COZAAR) 100 mg tablet Take 1 tablet by mouth once daily. hydroCHLOROthiazide (HYDRODIURIL, ESIDRIX) 25 mg tablet Take 1 tablet by mouth once daily. meloxicam (MOBIC) 15 mg tablet Take 1 tablet by mouth once daily. amLODIPine (NORVASC) 10 mg tablet Take 10 mg by mouth once daily. Going to double check dosage. metFORMIN ER (FORTAMET) 500 mg 24 hr tablet Take 1 tablet by mouth daily with breakfast. May substitute atenolol (TENORMIN) 50 mg tablet Take 50 mg by mouth once daily. neomycin/polymyxin B/dexametha (XAZKDCHE-[id number]-CJFYLBLG OPHTHALMIC) Use in eyes as needed. Cholecalciferol, Vitamin D3, 50 mcg (2,000 unit) cap Take 50 capsules by mouth. aspirin, enteric coated (ASPIRIN, ENTERIC COATED) 81 mg EC tablet Take 81 mg by mouth once daily. Clobetasol taper - compound [facility] Clobetasol 0.07% ointment. Use to affected area twice daily x 4 weeks then at bedtime x 4 weeks then 1-2 times per week. FOLIC ACID/MULTIVIT-MIN/LUTEIN (CENTRUM SILVER ORAL) Take by mouth once daily. Biotin 10,000 mcg cap Take 5,000 mcg by mouth once daily. KRILL OIL ORAL Take 800 mg by mouth once daily. No current facility-administered medications for this visit. ALLERGIES Allergen Reactions Erythromycin Rash Miroslava Inhibitors Cough Atenolol Intolerance Sweating, hard time breathing Carvedilol Intolerance Slight headache, leg cramps, sweating Corgard [Nadolol] Intolerance Heavy chest, sweating, hot flashes Diltiazem Intolerance Dizzy/ heart thumping, heard to breathe Metoprolol Intolerance Chest tight, hot flash/sweat Tetracycline Hcl (B* Hives blisters Verapamil Intolerance Short of breath, fatigue, indigestion, rash REVIEW OF SYSTEMS: GENERAL: bad cold currently, + fatigue, no recent change in weight RESPIRATORY: no cough, no wheezing or shortness of breath CARDIOVASCULAR: no chest pain, no palpitations GI: normal appetite, tolerating PO well, BMs normal, and no abdominal pain MUSCULOSKELETAL: denies any painful or swollen joints, no muscle aches NEURO: no numbness or paresthesias and no weakness of the extremities PHYSICAL EXAMINATION: VIDEO EXAM: (if completed, performed via video enabled technology) GENERAL: alert and appropriate, in no distress, well-hydrated, well nourished, and happy, smiling, interactive ASSESSMENT: Lisandra Abreu is a 67 year old female seen for follow up elevated liver enzymes. [facility] 11/02/2022. PMHx includes CHF, HLD, HTN, Pulmonary HTN, ELVER, DM Type II, psoriasis, Lichen sclerosus and obesity. S/p nephrectomy kidney Ca, no chemo or radiation. Will order TJ liver biopsy for hepatic fibrosis staging and possible significance of +RHIANNA. -Reviewed available labs and imaging with the patient -Discussed the natural history of liver disease, up to and including cirrhosis -Discussed possible causes of liver enzyme elevation -Discussed the natural history of fatty liver, risk factors and the possibility of progression to cirrhosis -Discussed metabolic syndrome, risk factors, the importance of control of MES risk factors -Discussed Hepatic fibrosis/steatosis staging: Fibroscan, specific to the patient's Fibroscan results -Discussed the effect of alcohol use on liver enzymes and the liver -Discussed a healthy, Mediterranean diet with lean proteins, fresh fruits and vegetables, low carb and low sugar -Discussed regular aerobic exercise as tolerated with a goal of 40-45 minutes per day at least 5 days per week -Discussed upcoming testing for further evaluation for causes of liver enzyme elevation PLAN: (K76.0) Fatty liver (primary encounter diagnosis) -IR TJ liver biopsy for hepatic fibrosis/steatosis staging -Maintain a healthy diet -Regular exercise as tolerated -Continue current medications as prescribed -Work on weight loss -Work with your PCP for control of MES risk factors I spent a total of 45 minutes on the date of the service which included preparing to see the patient, [id number] patient care, completing clinical documentation, counseling and educating the patient/family/caregiver, and communicating results to the patient/family/caregiver Olga Valdovinos APRN.BEHAVIORAL CONSULTANT documented in this encounter [facility] 11-02-2022 History of Present illness Narrative NAME: Lisandra Abreu AGE: [age] year old Patient is referred in consultation by self for an opinion regarding elevated liver enzymes. PRESENTING COMPLAINT & HISTORY HPI: Lisandra Abreu is a 67 year old year old female who presents with elevated liver enzymes. PMHx includes CHF, HLD, HTN, Pulmonary HTN, ELVER, DM Type II, psoriasis, Lichen sclerosus and obesity. S/p nephrectomy kidney Ca, no chemo or radiation. Labs: AP 106, AST 42, ALT 44, Total Bili 0.4, Albumin 4.6 and platelets unknown. Most recent imaging: US 08/24/2021: increase in echogenicity of the liver, likely representing hepatic steatosis. Patient denies RUQ pain, shortness of breath, signs of fluid retention, fever, chills, nausea, jaundice, dark colored urine, pale colored stools, constipation, diarrhea, hematemesis, melena, decreased appetite, muscle wasting, confusion, weight loss and fatigue. Risk Factors for Liver Disease: 1. Blood transfusions before 1991: No 2. IVDA: No 3. Intranasal coccaine use: No 4. Tattoos: No 5. Service: No 6. High risk sexual behavior: No 7. Alcohol: Yes, Remotely 8. Obesity: Yes 9. Hyperlipidemia: Yes 10. Prolonged exposure to hepatotoxic meds: No. Corgard 11. Other autoimmune disorders Yes, psoriasis, lichens sclerosis Metabolic Syndrome Risk factors: 01/18 1) Diabetes/ Abnormal FBS >100mg/dL: Yes 2) Hypertension : Yes 3)Triglycerides more then 150 : Yes 4) HDL (<50 female and <40 male): Yes 5) Central obesity ( Waist >102 men and >88 female) - Body mass index is 45.00 kg/(m^2). PAST SURGICAL HISTORY Procedure Laterality Date BACK SURGERY HX BREAST BX NEEDLE CORE LEFT Left 06/19/2022 ultrasound guided needle core biopsy left breast BREAST SURGERY HX 07/11/2022 left breast lumpectomy COLONOSCOPY FLX DX W/COLLJ SPEC WHEN PFRMD 08/25/2015 Colonoscopy COLONOSCOPY FLX DX W/COLLJ SPEC WHEN PFRMD 02/25/2020 Colonoscopy 5 yr interval ESOPHAGOGASTRODUODENOSCOPY TRANSORAL DIAGNOSTIC 02/25/2020 esophagitis, intestinal metaplasia on stomach biopsies. Repeat in 2-3 years HAND SURGERY HX several on both hands HYSTERECTOMY HX with subsequent BSO KIDNEY SURGERY HX 1997 left kidney removed from cancer LEFT HEART CATH,PERCUTANEOUS normal per Dr. Cheema TONSILLECTOMY & ADENOIDECTOMY <AGE 10 PAST MEDICAL HISTORY Diagnosis Date Arthritis Diabetes (HCC) Family history of colon cancer Hx of colonic polyps Hypertension Lichen sclerosus et atrophicus ELVER (obstructive sleep apnea) uses cpap. sees Dr. Walters. Snoring TIA (transient ischemic attack) 2014 Social History Tobacco Use Smoking status: Former Packs/day: 1.00 Types: Cigarettes Quit date: 12/24/2009 Years since quittin.8 Smokeless tobacco: Never Vaping Use Vaping Use: Former Substance Use Topics Alcohol use: Not Currently Comment: rarely Drug use: No Current Outpatient Medications Medication Sig Dispense Refill atorvastatin (LIPITOR) 80 mg tablet Take 1 tablet by mouth once daily. 90 tablet 1 L. acidophilus-L. rhamnosus 15 billion cell cap Take 1 capsule by mouth once daily. [employer]OR[employer] WOMEN. If on antibiotic, take at least 1-2 hours before or after antibiotic. KEEP REFRIGERATED 30 capsule 11 losartan (COZAAR) 100 mg tablet Take 1 tablet by mouth once daily. 90 tablet 3 hydroCHLOROthiazide (HYDRODIURIL, ESIDRIX) 25 mg tablet Take 1 tablet by mouth once daily. 90 tablet 1 meloxicam (MOBIC) 15 mg tablet Take 1 tablet by mouth once daily. 90 tablet 1 amLODIPine (NORVASC) 10 mg tablet Take 10 mg by mouth once daily. Going to double check dosage. metFORMIN ER (FORTAMET) 500 mg 24 hr tablet Take 1 tablet by mouth daily with breakfast. May substitute 90 tablet 3 atenolol (TENORMIN) 50 mg tablet Take 50 mg by mouth once daily. neomycin/polymyxin B/dexametha ([id number] OPHTHALMIC) Use in eyes as needed. Cholecalciferol, Vitamin D3, 50 mcg (2,000 unit) cap Take 50 capsules by mouth. aspirin, enteric coated (ASPIRIN, ENTERIC COATED) 81 mg EC tablet Take 81 mg by mouth once daily. Clobetasol taper - compound [facility] Clobetasol 0.07% ointment. Use to affected area twice daily x 4 weeks then at bedtime x 4 weeks then 1-2 times per week. 1 Tube 2 FOLIC ACID/MULTIVIT-MIN/LUTEIN (CENTRUM SILVER ORAL) Take by mouth once daily. Biotin 10,000 mcg cap Take 5,000 mcg by mouth once daily. KRILL OIL ORAL Take 800 mg by mouth once daily. No current facility-administered medications for this visit. ALLERGIES Allergen Reactions Erythromycin Rash Miroslava Inhibitors Cough Atenolol Intolerance Sweating, hard time breathing Carvedilol Intolerance Slight headache, leg cramps, sweating Corgard [Nadolol] Intolerance Heavy chest, sweating, hot flashes Diltiazem Intolerance Dizzy/ heart thumping, heard to breathe Metoprolol Intolerance Chest tight, hot flash/sweat Tetracycline Hcl (B* Hives blisters Verapamil Intolerance Short of breath, fatigue, indigestion, rash FAMILY HISTORY Liver Problems: No Colitis: No Colon Cancer: No Other Cancers: No FAMILY HISTORY Problem Relation Age of Onset Heart disease Mother Emphysema Mother Colon Cancer Father Heart Father Diabetes Brother other (diverticulitis) Maternal Grandmother Heart Attack Maternal Grandmother No Known Problems Maternal Grandfather Diabetes Paternal Grandmother Heart Attack Paternal Grandfather Stroke Paternal Grandfather GENERAL ROS Colon polyps: No Colon cancer: No Other cancer: Yes Radiation / Chemotherapy: Yes Crohn's disease / Ulcerative colitis: No High cholesterol or triglycerides: Yes Ulcers: No Gallstones: No Hepatitis / jaundice: No Heart Disease: Yes Lung Disease: No Liver problems: No Thyroid disease: No Kidney stones: No Pancreatitis: No Diabetes: Yes Arthritis: Yes Rheumatic fever: No Gastrointestinal bleeding: No Depression or other mental illness: No Other personal illness: No PHYSICAL EXAMINATION 11/02/22 1443 BP: 142/57 BP Site: Left Arm BP Position: Sitting BP Cuff Size: Extra Large Adult Pulse: 73 Temp: 36.6 C (97.9 F) TempSrc: Temporal SpO2: 96% Weight: 125.5 kg (276 lb 9.6 oz) Height: 166.4 cm (5' 5.5) General Appearance: Well appearing, alert, in no acute distress, well-hydrated, well nourished. Eyes:Conjunctiva and sclera normal Oropharynx: Lips, tongue, and oral mucosa normal. There is no thrush or oral ulcers. Abdomen: not distended Extremities: no cyanosis or edema Skin: no jaundice, no spider angiomas, no palmar erythema Neuro:alert, oriented x 3, pleasant and in no acute distress Recent Labs: Hemoglobin (g/dL) Date Value 07/20/2021 14.3 Hematocrit (%) Date Value 07/20/2021 45.0 WBC (k/uL) Date Value 07/20/2021 7.69 Glucose (mg/dL) Date Value 08/16/2022 149 07/20/2021 120 Potassium (mmol/L) Date Value 08/16/2022 4.9 07/20/2021 4.2 Sodium (mmol/L) Date Value 08/16/2022 140 07/20/2021 139 Chloride (mmol/L) Date Value 08/16/2022 101 07/20/2021 101 CO2 (mmol/L) Date Value 08/16/2022 25 07/20/2021 21 Creatinine (mg/dL) Date Value 08/16/2022 0.93 07/20/2021 0.94 BUN (mg/dL) Date Value 08/16/2022 20 07/20/2021 19 Anion Gap (mmol/L) Date Value 08/16/2022 14 07/20/2021 17 Calcium (mg/dL) Date Value 07/20/2021 10.1 Calcium, Total (mg/dL) Date Value 08/16/2022 9.5 Albumin (g/dL) Date Value 08/16/2022 4.6 Bilirubin, Total (mg/dL) Date Value 08/16/2022 0.4 Bilirubin, Conjugated (mg/dL) Date Value 08/16/2022 <0.2 Alkaline Phosphatase (U/L) Date Value 08/16/2022 106 AST (U/L) Date Value 08/16/2022 42 (H) ALT (U/L) Date Value 08/16/2022 44 (H) Protein, Total (g/dL) Date Value 08/16/2022 7.2 Computed MELD-Na score unavailable. Necessary lab results were not found in the last year. Computed MELD score unavailable. Necessary lab results were not found in the last year. Assessment IMPRESSION -Reviewed available labs and imaging with the patient -Discussed the natural history of liver disease, up to and including cirrhosis -Discussed possible causes of liver enzyme elevation -Discussed the natural history of fatty liver, risk factors and the possibility of progression to cirrhosis -Discussed metabolic syndrome, risk factors, the importance of control of MES risk factors -Discussed Hepatic fibrosis/steatosis staging: Fibroscan, specific to the patient's Fibroscan results -Discussed the effect of alcohol use on liver enzymes and the liver -Discussed a healthy, Mediterranean diet with lean proteins, fresh fruits and vegetables, low carb and low sugar -Discussed regular aerobic exercise as tolerated with a goal of 40-45 minutes per day at least 5 days per week -Discussed upcoming testing for further evaluation for causes of liver enzyme elevation PLAN (K76.0) Fatty liver (primary encounter diagnosis) -RHIANNA, A1A, Smooth muscle, Iron + TIBC, Ferritin, Ceruloplasmin, AMA, Hep remote panel, EBV IGG, EBV IGM, LKM, CMV, GGT, Copper blood, HFE to rule out causes of liver disease -Fibroscan for hepatic fibrosis/steatosis staging -CMP, CBC for liver enzymes and functoin -Work on weight loss -Maintain a healthy diet -Get regular exercise -Continue current medications as prescribed -Work with your PCO to control MES risk factors Return to office when testing is complete During this patient visit I have spent approximately 35 minutes out of 35 in counseling regarding LAF diet, weight loss, exercise, treatment options, medications, and test results and coordinating care. Olga Valdovinos APRN.CNP November 02, 2022 12:30 PM documented in this encounter [facility] 10-29-2022 Miscellaneous Notes Last OV: 08/03/22 Next OV; 01/21/23 Last Rx: 05/22/22 #90 w/1. Karoline Kidd Ma documented in this encounter [facility] 10-11-2022 Instructions Lindsey Traylor APRN.CHE - 10/11/2022 10:04 AM EST At area of new and persistent itching - Clobetasol ointment twice daily x 4 weeks then at night x 4 weeks then every other day x 4 weeks then taper to 1-2 times/week. documented in this encounter [facility] 10-11-2022 History of Present illness Narrative Field Spec offered: Patient declines. Lisandra Abreu is a 67 year old female who presents for problem visit lichen sclerosis. HPI: LS treated with clobetasol twice a week. Flares are difficult to determine due to frequent vulvar irritation. Itching is at the top of vulva where she does not apply clobetasol because her LS is from mid-vulva to rectum. Itching/irritation is significant enough that she does not wear pants for a whole day. She is unable to visualize the area. Thinks may have a yeast infection. Took antibiotics a couple of months ago with no significant increase in itching. Does treat with Monistat 7 for 2-3 days at a time which is helpful. OB History T0 L3 SAB0 IAB0 Ectopic0 Multiple0 Live Births0 Emergency Medical Dispatcher History LMP: Hysterectomy Age at Menarche: Age at First : Age at Menopause: Emergency Medical Dispatcher History Comments: Sexual Activity: Not Currently; No partner data on record Contraception: Surgical PAST MEDICAL HISTORY Diagnosis Date Arthritis Diabetes (HCC) Family history of colon cancer Hx of colonic polyps Hypertension Lichen sclerosus et atrophicus ELVER (obstructive sleep apnea) uses cpap. sees Dr. Walters. Snoring TIA (transient ischemic attack) 2014 PAST SURGICAL HISTORY Procedure Laterality Date BACK SURGERY HX BREAST BX NEEDLE CORE LEFT Left 06/19/2022 ultrasound guided needle core biopsy left breast BREAST SURGERY HX 07/11/2022 left breast lumpectomy COLONOSCOPY FLX DX W/COLLJ SPEC WHEN PFRMD 08/25/2015 Colonoscopy COLONOSCOPY FLX DX W/COLLJ SPEC WHEN PFRMD 02/25/2020 Colonoscopy 5 yr interval ESOPHAGOGASTRODUODENOSCOPY TRANSORAL DIAGNOSTIC 02/25/2020 esophagitis, intestinal metaplasia on stomach biopsies. Repeat in 2-3 years HAND SURGERY HX several on both hands HYSTERECTOMY HX with subsequent BSO KIDNEY SURGERY HX 1997 left kidney removed from cancer LEFT HEART CATH,PERCUTANEOUS normal per Dr. Cheema TONSILLECTOMY & ADENOIDECTOMY <AGE 10 FAMILY HISTORY Problem Relation Age of Onset Heart disease Mother Emphysema Mother Colon Cancer Father Heart Father Diabetes Brother other (diverticulitis) Maternal Grandmother Heart Attack Maternal Grandmother No Known Problems Maternal Grandfather Diabetes Paternal Grandmother Heart Attack Paternal Grandfather Stroke Paternal Grandfather Social History Tobacco Use Smoking status: Former Packs/day: 1.00 Types: Cigarettes Quit date: 12/24/2009 Years since quittin.8 Smokeless tobacco: Never Vaping Use Vaping Use: Former Substance Use Topics Alcohol use: Not Currently Comment: rarely Drug use: No Current Outpatient Medications Medication Sig losartan (COZAAR) 100 mg tablet Take 1 tablet by mouth once daily. hydroCHLOROthiazide (HYDRODIURIL, ESIDRIX) 25 mg tablet Take 1 tablet by mouth once daily. meloxicam (MOBIC) 15 mg tablet Take 1 tablet by mouth once daily. atorvastatin (LIPITOR) 80 mg tablet Take 1 tablet by mouth once daily. amLODIPine (NORVASC) 10 mg tablet Take 10 mg by mouth once daily. Going to double check dosage. metFORMIN ER (FORTAMET) 500 mg 24 hr tablet Take 1 tablet by mouth daily with breakfast. May substitute L. acidophilus-L. rhamnosus 15 billion cell cap Take 1 capsule by mouth once daily. [facility] WOMEN. If on antibiotic, take at least 1-2 hours before or after antibiotic. KEEP REFRIGERATED atenolol (TENORMIN) 50 mg tablet Take 50 mg by mouth once daily. neomycin/polymyxin B/dexametha ([id number] OPHTHALMIC) Use in eyes as needed. Cholecalciferol, Vitamin D3, 50 mcg (2,000 unit) cap Take 50 capsules by mouth. aspirin, enteric coated (ASPIRIN, ENTERIC COATED) 81 mg EC tablet Take 81 mg by mouth once daily. Clobetasol taper - compound [facility] Clobetasol 0.07% ointment. Use to affected area twice daily x 4 weeks then at bedtime x 4 weeks then 1-2 times per week. FOLIC ACID/MULTIVIT-MIN/LUTEIN (CENTRUM SILVER ORAL) Take by mouth once daily. Biotin 10,000 mcg cap Take 5,000 mcg by mouth once daily. KRILL OIL ORAL Take 800 mg by mouth once daily. No current facility-administered medications for this visit. Allergies As of Date: 10/11/2022 Allergen Noted Reaction ERYTHROMYCIN 02/20/2017 Rash MIROSLAVA INHIBITORS 07/13/2021 Cough ATENOLOL 07/13/2021 Intolerance CARVEDILOL 07/13/2021 Intolerance CORGARD [NADOLOL] 07/13/2021 Intolerance DILTIAZEM 07/13/2021 Intolerance METOPROLOL 07/13/2021 Intolerance TETRACYCLINE HCL (BULK) 08/22/2015 Hives VERAPAMIL 07/13/2021 Intolerance Fully Assessed 10/11/2022 REVIEW OF SYSTEMS Bladder: No dysuria, gross hematuria, urinary frequency, urinary urgency, or incontinence. Allergies and current medication updated:Yes EXAM: BP 132/76 Wt 278 lb 12.8 oz (126.5kg) GENERAL: pleasant, female in no apparent distress CHEST: Normal inspiratory effort PELVIC: external genitalia normal, normal Bartholin's glands, urethra, Menlo's glands. LS - mild hypopigmentation to anterior vulva. LS well-controlled with no hypopigmentation or plaques to mid vulva, perineum or rectum. 2 inclusion cysts to inner right vulva and one to posterior left vulva. Small amount white vaginal discharge. NEURO: alert and oriented x3,exam grossly non-focal ASSESSMENT/PLAN: 1. Lichen sclerosus - ICD9: 701.0, ICD10: L90.0 (primary diagnosis) - Continue clobetasol twice weekly to mid-vulva to rectum per her usual and begin clobetasol taper to anterior vulva. She is to contact the office if itching does not significantly improve over next 4-8 weeks. Discussed possible vulvar biopsy. - Does not need clobetasol refill at this time. 2. Itching of vulva - ICD9: 698.1, ICD10: L29.2 - see above - ROLAND / TRICHOMONAS AMPLIFICATION - BACTERIAL VAGINOSIS AMPLIFICATION - LACTOBACILLUS ACIDOPHILUS AND RHAMNOSUS 15 BILLION CELL CAPSULE Will notify of results. Follow- up as needed. Lindsey Traylor APRN.BEHAVIORAL CONSULTANT Medical Decision Making: Problems: Moderate: 1+ chronic illnesses with change Data: Unique test(s) ordered: 3+ Risk: Moderate: Drug management Medical Decision Making Level: 4 - Moderate documented in this encounter [facility] 08-27-2022 Miscellaneous Notes Katarina from [facility] called and reported that someone from central scheduling set the Pt up to see a general surgeon through them. They provider said the Pt needed to be seen by GI which is what Dr Jacob put on the referral. Katarina states that she tried calling the Pt to notify her that her appointment with them is canceled, but ended up leaving a message. Called Pt and gave her message. Put pt through to scheduling to set up GI appointment. documented in this encounter [facility] 08-17-2022 Miscellaneous Notes Patient was notified she will call in to set up gastro. Liver stable. Rest of labs ok. Had gotten better a little but is back again. Did do a liver us in 2019. Given its persistence, recommend seeing gi. documented in this encounter [facility] 08-16-2022 Miscellaneous Notes Patient returned call and went over notes below from Dr Jacob with understanding. Aware rx sent to pharmacy. Patient was notified Gretchen Vazquez Ma Rx sent. Call if symptoms worsen at all or if not better in one to two weeks Call to pt. Notes that today she is feeling more urinary symptoms then previously.Over the past week has had some increase in urination. Today, more so then the past week. She feels she's emptying. Some burning while urinating. Karoline Kidd Ma Labs are pending. But urine is showing white cells. Is she having any urinary symptoms? documented in this encounter [facility] 08-03-2022 Instructions Pedro Jacob MD - 08/03/2022 3:03 PM EST Dressing may be changed and wound may be cleansed with rubbing alcohol or hydrogen peroxide as needed. Keep the wound covered and dry for the first 2 days. Antibiotic ointment may be applied if desired. You may have limited exposure to showering 48 hours after procedure. Apply direct constant pressure to the wound for 10-15 minutes if bleeding occurs. Contact the office if bleeding will not stop, there is spreading redness, foul drainage, or other signs of infection. documented in this encounter [facility] 08-03-2022 History of Present illness Narrative Patient presents with: Derm Problem: Shave excision bilateral arms HPI: Patient presents today for office visit for shave excision x 2. Enlarging skin lesions-one on each arm. Left is upper arm. Right is elbow. Have been enlarging over the last year. MEDICATIONS: Current Outpatient Medications Medication Sig losartan (COZAAR) 100 mg tablet Take 1 tablet by mouth once daily. hydroCHLOROthiazide (HYDRODIURIL, ESIDRIX) 25 mg tablet Take 1 tablet by mouth once daily. meloxicam (MOBIC) 15 mg tablet Take 1 tablet by mouth once daily. atorvastatin (LIPITOR) 80 mg tablet Take 1 tablet by mouth once daily. amLODIPine (NORVASC) 10 mg tablet Take 10 mg by mouth once daily. Going to double check dosage. metFORMIN ER (FORTAMET) 500 mg 24 hr tablet Take 1 tablet by mouth daily with breakfast. May substitute L. acidophilus-L. rhamnosus 15 billion cell cap Take 1 capsule by mouth once daily. [employer] WOMEN. If on antibiotic, take at least 1-2 hours before or after antibiotic. KEEP REFRIGERATED atenolol (TENORMIN) 50 mg tablet Take 50 mg by mouth once daily. neomycin/polymyxin B/dexametha ([id number] OPHTHALMIC) Use in eyes as needed. Cholecalciferol, Vitamin D3, 50 mcg (2,000 unit) cap Take 50 capsules by mouth. aspirin, enteric coated (ASPIRIN, ENTERIC COATED) 81 mg EC tablet Take 81 mg by mouth once daily. Clobetasol taper - compound [facility] Clobetasol 0.07% ointment. Use to affected area twice daily x 4 weeks then at bedtime x 4 weeks then 1-2 times per week. FOLIC ACID/MULTIVIT-MIN/LUTEIN (CENTRUM SILVER ORAL) Take by mouth once daily. Biotin 10,000 mcg cap Take 5,000 mcg by mouth once daily. KRILL OIL ORAL Take 800 mg by mouth once daily. No current facility-administered medications for this visit. ALLERGIES: ALLERGIES Allergen Reactions Erythromycin Rash Miroslava Inhibitors Cough Atenolol Intolerance Sweating, hard time breathing Carvedilol Intolerance Slight headache, leg cramps, sweating Corgard [Nadolol] Intolerance Heavy chest, sweating, hot flashes Diltiazem Intolerance Dizzy/ heart thumping, heard to breathe Metoprolol Intolerance Chest tight, hot flash/sweat Tetracycline Hcl (B* Hives blisters Verapamil Intolerance Short of breath, fatigue, indigestion, rash PAST MEDICAL HISTORY Diagnosis Date Arthritis Diabetes (HCC) Family history of colon cancer Hx of colonic polyps Hypertension ELVER (obstructive sleep apnea) uses cpap. sees Dr. Walters. Snoring TIA (transient ischemic attack) 2014 PAST SURGICAL HISTORY Procedure Laterality Date BACK SURGERY HX BREAST BX NEEDLE CORE LEFT Left 06/19/2022 ultrasound guided needle core biopsy left breast BREAST SURGERY HX 07/11/2022 left breast lumpectomy COLONOSCOPY FLX DX W/COLLJ SPEC WHEN PFRMD 08/25/2015 Colonoscopy COLONOSCOPY FLX DX W/COLLJ SPEC WHEN PFRMD 02/25/2020 Colonoscopy 5 yr interval ESOPHAGOGASTRODUODENOSCOPY TRANSORAL DIAGNOSTIC 02/25/2020 esophagitis, intestinal metaplasia on stomach biopsies. Repeat in 2-3 years HAND SURGERY HX several on both hands HYSTERECTOMY HX with subsequent BSO KIDNEY SURGERY HX 1997 left kidney removed from cancer LEFT HEART CATH,PERCUTANEOUS normal per Dr. Cheema TONSILLECTOMY & ADENOIDECTOMY <AGE 12 FAMILY HISTORY Problem Relation Age of Onset Heart disease Mother Emphysema Mother Colon Cancer Father Heart Father Diabetes Brother other (diverticulitis) Maternal Grandmother Heart Attack Maternal Grandmother No Known Problems Maternal Grandfather Diabetes Paternal Grandmother Heart Attack Paternal Grandfather Stroke Paternal Grandfather Social History Tobacco Use Smoking status: Former Packs/day: 1.00 Types: Cigarettes Quit date: 12/24/2009 Years since quittin.6 Smokeless tobacco: Never Vaping Use Vaping Use: Former Substance Use Topics Alcohol use: Not Currently Comment: rarely Drug use: No Reviewed current medications, allergies, past medical history, surgical history, family history and social history today. VITALS: BP 132/72 Pulse 81 Wt 123.4 kg (272 lb) SpO2 97% BMI 43.90 kg/m Last 4 Encounter Wt Readings: Date: Wt: 08/03/2022 123.4 kg (272 lb) 08/01/2022 124.6 kg (274 lb 9.6 oz) 07/23/2022 125 kg (275 lb 9.6 oz) 07/05/2022 124.3 kg (274 lb) PHYSICAL EXAMINATION: General appearance: Well appearing, alert, in no acute distress, well-hydrated, well nourished. Skin: skin lesion as above. Procedure: shave biopsy UNIVERSAL PROTOCOL / SAFETY CHECKLIST Procedure to be Performed: 1. Shave biopsy left upper arm. 2. Shave biopsy right elbow. Sign In: A Moment of CARE was completed. Personnel directly involved with the procedure wore the appropriate PPE (Personal Protective Equipment). Patient/Surrogate Stated/Verified: PATIENT VERIFIED(optional for EMERGENT procedures): Patient name, Date of , Relevant allergies, and The intended procedure Time Out Communication: Intended patient and procedure match the source documents. Consent documented and matches the intended procedure. Sign Out: SIGN OUT (optional for EMERGENT procedures): left arm specimen is marked L, right arm is labeled R Pedro Jacob MD Preop diagnosis: skin lesion as above. Postop diagnosis: Same Consent: Risks and benefits of the procedure were discussed with the patient including bleeding, infection, scarring, and need for further treatment if a malignant process is discovered. The patient understands these risks and wishes to proceed. Site:left upper am, larger lesion. Right elbow, lower lesion. Anesthesia: 0.5 cc 1 % lidocaine without epinephrine each area Procedure: area was cleansed with betadine and draped in a sterile fashion. A sterile number 11 scalpel blade was used to shave each lesion. Hemostasis was achieved using compression and electrocautery. Patient tolerated well. Lesions placed in separate containers, left arm in specimen labeled L, right elbow in specimen labeled R. Lesion sent to pathology. Dressing: bandaid. Wound care: Dressing may be changed and wound may be cleansed with rubbing alcohol or hydrogen peroxide as needed. Keep the wound covered and dry for the first 2 days. Antibiotic ointment may be applied if desired. You may have limited exposure to showering 48 hours after procedure. Apply direct constant pressure to the wound for 10-15 minutes if bleeding occurs. Contact the office if bleeding will not stop, there is spreading redness, foul drainage, or other signs of infection. ASSESSMENT/PLAN: 1. Skin lesion - ICD9: 709.9, ICD10: L98.9 - given wound care instructions. Red flags for re-assessment reviewed with patient in detail. - SURGICAL PATHOLOGY - SURGICAL PATHOLOGY Pedro Jacob MD documented in this encounter [facility] 08-01-2022 History of Past i llness Narrative Problem Noted Date Resolved Date Chest pain 08/01/2022 08/01/2022 Fatigue 08/01/2022 08/01/2022 Pounding heartbeat 08/01/2022 08/01/2022 Subareolar duct papillomatosis, left 07/11/2022 07/11/2022 HERRON (dyspnea on exertion) 07/05/20222021 Last Assessment & Plan: Assessment: chronic unchanged- follows with pulm. Last seen by 04/09/22, OV note scanned into chart with recommendation to follow up in 6 months. Localized edema 01/08/2022 08/01/2022 Diabetes mellitus type 1, controlled, without co mplications 07/13/2021 07/13/2021 Family history of renal cancer 07/13/2021 1 Overview: Had nephrectomy in 1997. Does not have to follow for it. Triggering of digit 04/16/2018 07/13/2021 Arthritis of wrist 02/20/2017 07/13/2021 documented as of this encounter (statuses as of 08/01/2022) [facility] History of Past illness Narrative* Problem Noted Date Resolved Date Chest pain 08/01/2022 08/01/2022 Fatigue 08/01/2022 08/01/2022 Pounding heartbeat 08/01/2022 08/01/2022 Subareolar duct papillomatosis, left 07/11/2022 07/11/2022 HERRON (dyspnea on exertion) 07/05/20222021 Last Assessment & Plan: Assessment: chronic unchanged- follows with pulm. Last seen by 04/09/22, OV note scanned into chart with recommendation to follow up in 6 months. Localized edema 01/08/2022 08/01/2022 Diabetes mellitus type 1, controlled, without co mplications 07/13/2021 07/13/2021 Family history of renal cancer 07/13/2021 1 Overview: Had nephrectomy in 1997. Does not have to follow for it. Triggering of digit 04/16/2018 07/13/2021 Arthritis of wrist 02/20/2017 07/13/2021 documented as of this encounter (statuses as of 08/01/2022) [facility] History of Past illness Narrative* Problem Noted Date Resolved Date Chest pain 08/01/2022 08/01/2022 Fatigue 08/01/2022 08/01/2022 Pounding heartbeat 08/01/2022 08/01/2022 Subareolar duct papillomatosis, left 07/11/2022 07/11/2022 HERRON (dyspnea on exertion) 07/05/20222021 Last Assessment & Plan: Assessment: chronic unchanged- follows with pulm. Last seen by 04/09/22, OV note scanned into chart with recommendation to follow up in 6 months. Localized edema 01/08/2022 08/01/2022 Diabetes mellitus type 1, controlled, without co mplications 07/13/2021 07/13/2021 Family history of renal cancer 07/13/2021 1 Overview: Had nephrectomy in 1997. Does not have to follow for it. Triggering of digit 04/16/2018 07/13/2021 Arthritis of wrist 02/20/2017 07/13/2021 documented as of this encounter (statuses as of 08/03/2022) [facility] [place]11-16-2022 History of Past illness Narrative* Problem Noted Date Resolved Date Chest pain 08/01/2022 08/01/2022 Fatigue 08/01/2022 08/01/2022 Pounding heartbeat 08/01/2022 08/01/2022 Subareolar duct papillomatosis, left 07/11/2022 07/11/2022 HERRON (dyspnea on exertion) 07/05/20222021 Last Assessment & Plan: Assessment: chronic unchanged- follows with pulm. Last seen by 04/09/22, OV note scanned into chart with recommendation to follow up in 6 months. Localized edema 01/08/2022 08/01/2022 Diabetes mellitus type 1, controlled, without co mplications 07/13/2021 07/13/2021 Family history of renal cancer 07/13/2021 1 Overview: Had nephrectomy in 1997. Does not have to follow for it. Triggering of digit 04/16/2018 07/13/2021 Arthritis of wrist 02/20/2017 07/13/2021 documented as of this encounter (statuses as of 08/16/2022) [facility] [place]-16[facility]2022 History of Past illness Narrative* Problem Noted Date Resolved Date Chest pain 08/01/2022 08/01/2022 Fatigue 08/01/2022 08/01/2022 Pounding heartbeat 08/01/2022 08/01/2022 Subareolar duct papillomatosis, left 07/11/2022 07/11/2022 HERRON (dyspnea on exertion) 07/05/20222021 Last Assessment & Plan: Assessment: chronic unchanged- follows with pulm. Last seen by 04/09/22, OV note scanned into chart with recommendation to follow up in 6 months. Localized edema 01/08/2022 08/01/2022 Diabetes mellitus type 1, controlled, without co mplications 07/13/2021 07/13/2021 Family history of renal cancer 07/13/2021 1 Overview: Had nephrectomy in 1997. Does not have to follow for it. Triggering of digit 04/16/2018 07/13/2021 Arthritis of wrist 02/20/2017 07/13/2021 documented as of this encounter (statuses as of 08/17/2022) [facility] [place]20[facility] History of Past illness Narrative* Problem Noted Date Resolved Date Chest pain 08/01/2022 08/01/2022 Fatigue 08/01/2022 08/01/2022 Pounding heartbeat 08/01/2022 08/01/2022 Subareolar duct papillomatosis, left 07/11/2022 07/11/2022 HERRON (dyspnea on exertion) 07/05/20222021 Last Assessment & Plan: Assessment: chronic unchanged- follows with pulm. Last seen by 04/09/22, OV note scanned into chart with recommendation to follow up in 6 months. Localized edema 01/08/2022 08/01/2022 Diabetes mellitus type 1, controlled, without co mplications 07/13/2021 07/13/2021 Family history of renal cancer 07/13/2021 1 Overview: Had nephrectomy in 1997. Does not have to follow for it. Triggering of digit 04/16/2018 07/13/2021 Arthritis of wrist 02/20/2017 07/13/2021 documented as of this encounter (statuses as of 08/27/2022) [facility] [place] History of Past illness Narrative* Problem Noted Date Resolved Date Chest pain 08/01/2022 08/01/2022 Fatigue 08/01/2022 08/01/2022 Pounding heartbeat 08/01/2022 08/01/2022 Subareolar duct papillomatosis, left 07/11/2022 07/11/2022 HERRON (dyspnea on exertion) 07/05/20222021 Last Assessment & Plan: Assessment: chronic unchanged- follows with pulm. Last seen by 04/09/22, OV note scanned into chart with recommendation to follow up in 6 months. Localized edema 01/08/2022 08/01/2022 Diabetes mellitus type 1, controlled, without co mplications 07/13/2021 07/13/2021 Family history of renal cancer 07/13/2021 1 Overview: Had nephrectomy in 1997. Does not have to follow for it. Triggering of digit 04/16/2018 07/13/2021 Arthritis of wrist 02/20/2017 07/13/2021 documented as of this encounter (statuses as of 10/11/2022) [facility] [place] History of Past illness Narrative* Problem Noted Date Resolved Date Chest pain 08/01/2022 08/01/2022 Fatigue 08/01/2022 08/01/2022 Pounding heartbeat 08/01/2022 08/01/2022 Subareolar duct papillomatosis, left 07/11/2022 07/11/2022 HERRON (dyspnea on exertion) 07/05/20222021 Last Assessment & Plan: Assessment: chronic unchanged- follows with pulm. Last seen by 04/09/22, OV note scanned into chart with recommendation to follow up in 6 months. Localized edema 01/08/2022 08/01/2022 Diabetes mellitus type 1, controlled, without co mplications 07/13/2021 07/13/2021 Family history of renal cancer 07/13/2021 1 Overview: Had nephrectomy in 1997. Does not have to follow for it. Triggering of digit 04/16/2018 07/13/2021 Arthritis of wrist 02/20/2017 07/13/2021 documented as of this encounter (statuses as of 10/30/2022) [facility] [place] History of Past illness Narrative* Problem Noted Date Resolved Date Chest pain 08/01/2022 08/01/2022 Fatigue 08/01/2022 08/01/2022 Pounding heartbeat 08/01/2022 08/01/2022 Subareolar duct papillomatosis, left 07/11/2022 07/11/2022 HERRON (dyspnea on exertion) 07/05/20222021 Last Assessment & Plan: Assessment: chronic unchanged- follows with pulm. Last seen by 04/09/22, OV note scanned into chart with recommendation to follow up in 6 months. Localized edema 01/08/2022 08/01/2022 Diabetes mellitus type 1, controlled, without co mplications 07/13/2021 07/13/2021 Family history of renal cancer 07/13/2021 1 Overview: Had nephrectomy in 1997. Does not have to follow for it. Triggering of digit 04/16/2018 07/13/2021 Arthritis of wrist 02/20/2017 07/13/2021 documented as of this encounter (statuses as of 11/13/2022) [facility] [place] History of Past illness Narrative* Problem Noted Date Resolved Date Chest pain 08/01/2022 08/01/2022 Fatigue 08/01/2022 08/01/2022 Pounding heartbeat 08/01/2022 08/01/2022 Subareolar duct papillomatosis, left 07/11/2022 07/11/2022 HERRON (dyspnea on exertion) 07/05/20222021 Last Assessment & Plan: Assessment: chronic unchanged- follows with pulm. Last seen by 04/09/22, OV note scanned into chart with recommendation to follow up in 6 months. Localized edema 01/08/2022 08/01/2022 Diabetes mellitus type 1, controlled, without co mplications 07/13/2021 07/13/2021 Family history of renal cancer 07/13/2021 1 Overview: Had nephrectomy in 1997. Does not have to follow for it. Triggering of digit 04/16/2018 07/13/2021 Arthritis of wrist 02/20/2017 07/13/2021 documented as of this encounter (statuses as of 11/14/2022) [facility] [place] History of Past illness Narrative* Problem Noted Date Resolved Date Chest pain 08/01/2022 08/01/2022 Fatigue 08/01/2022 08/01/2022 Pounding heartbeat 08/01/2022 08/01/2022 Subareolar duct papillomatosis, left 07/11/2022 07/11/2022 HERRON (dyspnea on exertion) 07/05/20222021 Last Assessment & Plan: Assessment: chronic unchanged- follows with pulm. Last seen by 04/09/22, OV note scanned into chart with recommendation to follow up in 6 months. Localized edema 01/08/2022 08/01/2022 Diabetes mellitus type 1, controlled, without co mplications 07/13/2021 07/13/2021 Family history of renal cancer 07/13/2021 1 Overview: Had nephrectomy in 1997. Does not have to follow for it. Triggering of digit 04/16/2018 07/13/2021 Arthritis of wrist 02/20/2017 07/13/2021 documented as of this encounter (statuses as of 11/20/2022) [facility] [place] History of Past illness Narrative* Problem Noted Date Resolved Date Chest pain 08/01/2022 08/01/2022 Fatigue 08/01/2022 08/01/2022 Pounding heartbeat 08/01/2022 08/01/2022 Subareolar duct papillomatosis, left 07/11/2022 07/11/2022 HERRON (dyspnea on exertion) 07/05/20222021 Last Assessment & Plan: Assessment: chronic unchanged- follows with pulm. Last seen by 04/09/22, OV note scanned into chart with recommendation to follow up in 6 months. Localized edema 01/08/2022 08/01/2022 Diabetes mellitus type 1, controlled, without co mplications 07/13/2021 07/13/2021 Family history of renal cancer 07/13/2021 1 Overview: Had nephrectomy in 1997. Does not have to follow for it. Triggering of digit 04/16/2018 07/13/2021 Arthritis of wrist 02/20/2017 07/13/2021 documented as of this encounter (statuses as of 11/27/2022) [facility] [place] History of Past illness Narrative* Problem Noted Date Resolved Date Chest pain 08/01/2022 08/01/2022 Fatigue 08/01/2022 08/01/2022 Pounding heartbeat 08/01/2022 08/01/2022 Subareolar duct papillomatosis, left 07/11/2022 07/11/2022 HERRON (dyspnea on exertion) 07/05/20222021 Last Assessment & Plan: Assessment: chronic unchanged- follows with pulm. Last seen by 04/09/22, OV note scanned into chart with recommendation to follow up in 6 months. Localized edema 01/08/2022 08/01/2022 Diabetes mellitus type 1, controlled, without co mplications 07/13/2021 07/13/2021 Family history of renal cancer 07/13/2021 1 Overview: Had nephrectomy in 1997. Does not have to follow for it. Triggering of digit 04/16/2018 07/13/2021 Arthritis of wrist 02/20/2017 07/13/2021 documented as of this encounter (statuses as of 11/27/2022) [facility] [place] History of Past illness Narrative* Problem Noted Date Resolved Date Chest pain 08/01/2022 08/01/2022 Fatigue 08/01/2022 08/01/2022 Pounding heartbeat 08/01/2022 08/01/2022 Subareolar duct papillomatosis, left 07/11/2022 07/11/2022 HERRON (dyspnea on exertion) 07/05/20222021 Last Assessment & Plan: Assessment: chronic unchanged- follows with pulm. Last seen by 04/09/22, OV note scanned into chart with recommendation to follow up in 6 months. Localized edema 01/08/2022 08/01/2022 Diabetes mellitus type 1, controlled, without co mplications 07/13/2021 07/13/2021 Family history of renal cancer 07/13/2021 1 Overview: Had nephrectomy in 1997. Does not have to follow for it. Triggering of digit 04/16/2018 07/13/2021 Arthritis of wrist 02/20/2017 07/13/2021 documented as of this encounter (statuses as of 12/04/2022) [facility] History of Past illness Narrative* Problem Noted Date Resolved Date Chest pain 08/01/2022 08/01/2022 Fatigue 08/01/2022 08/01/2022 Pounding heartbeat 08/01/2022 08/01/2022 Subareolar duct papillomatosis, left 07/11/2022 07/11/2022 HERRON (dyspnea on exertion) 07/05/20222021 Last Assessment & Plan: Assessment: chronic unchanged- follows with pulm. Last seen by 04/09/22, OV note scanned into chart with recommendation to follow up in 6 months. Localized edema 01/08/2022 08/01/2022 Diabetes mellitus type 1, controlled, without co mplications 07/13/2021 07/13/2021 Family history of renal cancer 07/13/2021 1 Overview: Had nephrectomy in 1997. Does not have to follow for it. Triggering of digit 04/16/2018 07/13/2021 Arthritis of wrist 02/20/2017 07/13/2021 documented as of this encounter (statuses as of 12/07/2022) [facility] [place] History of Past illness Narrative* Problem Noted Date Resolved Date Chest pain 08/01/2022 08/01/2022 Fatigue 08/01/2022 08/01/2022 Pounding heartbeat 08/01/2022 08/01/2022 Subareolar duct papillomatosis, left 07/11/2022 07/11/2022 HERRON (dyspnea on exertion) 07/05/20222021 Last Assessment & Plan: Assessment: chronic unchanged- follows with pulm. Last seen by 04/09/22, OV note scanned into chart with recommendation to follow up in 6 months. Localized edema 01/08/2022 08/01/2022 Diabetes mellitus type 1, controlled, without co mplications 07/13/2021 07/13/2021 Family history of renal cancer 07/13/2021 1 Overview: Had nephrectomy in 1997. Does not have to follow for it. Triggering of digit 04/16/2018 07/13/2021 Arthritis of wrist 02/20/2017 07/13/2021 documented as of this encounter (statuses as of 12/17/2022) [facility] [place] History of Past illness Narrative* Problem Noted Date Resolved Date Chest pain 08/01/2022 08/01/2022 Fatigue 08/01/2022 08/01/2022 Pounding heartbeat 08/01/2022 08/01/2022 Subareolar duct papillomatosis, left 07/11/2022 07/11/2022 HERRON (dyspnea on exertion) 07/05/20222021 Last Assessment & Plan: Assessment: chronic unchanged- follows with pulm. Last seen by 04/09/22, OV note scanned into chart with recommendation to follow up in 6 months. Localized edema 01/08/2022 08/01/2022 Diabetes mellitus type 1, controlled, without co mplications 07/13/2021 07/13/2021 Family history of renal cancer 07/13/2021 1 Overview: Had nephrectomy in 1997. Does not have to follow for it. Triggering of digit 04/16/2018 07/13/2021 Arthritis of wrist 02/20/2017 07/13/2021 documented as of this encounter (statuses as of 12/20/2022) [facility] [place] History of Past illness Narrative* Problem Noted Date Resolved Date Chest pain 08/01/2022 08/01/2022 Fatigue 08/01/2022 08/01/2022 Pounding heartbeat 08/01/2022 08/01/2022 Subareolar duct papillomatosis, left 07/11/2022 07/11/2022 HERRON (dyspnea on exertion) 07/05/20222021 Last Assessment & Plan: Assessment: chronic unchanged- follows with pulm. Last seen by 04/09/22, OV note scanned into chart with recommendation to follow up in 6 months. Localized edema 01/08/2022 08/01/2022 Diabetes mellitus type 1, controlled, without co mplications 07/13/2021 07/13/2021 Family history of renal cancer 07/13/2021 1 Overview: Had nephrectomy in 1997. Does not have to follow for it. Triggering of digit 04/16/2018 07/13/2021 Arthritis of wrist 02/20/2017 07/13/2021 documented as of this encounter (statuses as of 12/21/2022) [facility] [place] History of Past illness Narrative* Problem Noted Date Resolved Date Chest pain 08/01/2022 08/01/2022 Fatigue 08/01/2022 08/01/2022 Pounding heartbeat 08/01/2022 08/01/2022 Subareolar duct papillomatosis, left 07/11/2022 07/11/2022 HERRON (dyspnea on exertion) 07/05/20222021 Last Assessment & Plan: Assessment: chronic unchanged- follows with pulm. Last seen by 04/09/22, OV note scanned into chart with recommendation to follow up in 6 months. Localized edema 01/08/2022 08/01/2022 Diabetes mellitus type 1, controlled, without co mplications 07/13/2021 07/13/2021 Family history of renal cancer 07/13/2021 1 Overview: Had nephrectomy in 1997. Does not have to follow for it. Triggering of digit 04/16/2018 07/13/2021 Arthritis of wrist 02/20/2017 07/13/2021 documented as of this encounter (statuses as of 12/24/2022) [facility] [place] History of Past illness Narrative* Problem Noted Date Resolved Date Chest pain 08/01/2022 08/01/2022 Fatigue 08/01/2022 08/01/2022 Pounding heartbeat 08/01/2022 08/01/2022 Subareolar duct papillomatosis, left 07/11/2022 07/11/2022 HERRON (dyspnea on exertion) 07/05/20222021 Last Assessment & Plan: Assessment: chronic unchanged- follows with pulm. Last seen by 04/09/22, OV note scanned into chart with recommendation to follow up in 6 months. Localized edema 01/08/2022 08/01/2022 Diabetes mellitus type 1, controlled, without co mplications 07/13/2021 07/13/2021 Family history of renal cancer 07/13/2021 1 Overview: Had nephrectomy in 1997. Does not have to follow for it. Triggering of digit 04/16/2018 07/13/2021 Arthritis of wrist 02/20/2017 07/13/2021 documented as of this encounter (statuses as of 12/27/2022) [facility] [place] History of Past illness Narrative* Problem Noted Date Resolved Date Chest pain 08/01/2022 08/01/2022 Fatigue 08/01/2022 08/01/2022 Pounding heartbeat 08/01/2022 08/01/2022 Subareolar duct papillomatosis, left 07/11/2022 07/11/2022 HERRON (dyspnea on exertion) 07/05/20222021 Last Assessment & Plan: Assessment: chronic unchanged- follows with pulm. Last seen by 04/09/22, OV note scanned into chart with recommendation to follow up in 6 months. Localized edema 01/08/2022 08/01/2022 Diabetes mellitus type 1, controlled, without co mplications 07/13/2021 07/13/2021 Family history of renal cancer 07/13/2021 1 Overview: Had nephrectomy in 1997. Does not have to follow for it. Triggering of digit 04/16/2018 07/13/2021 Arthritis of wrist 02/20/2017 07/13/2021 documented as of this encounter (statuses as of 12/28/2022) [facility] [place] History of Past illness Narrative* Problem Noted Date Resolved Date Chest pain 08/01/2022 08/01/2022 Fatigue 08/01/2022 08/01/2022 Pounding heartbeat 08/01/2022 08/01/2022 Subareolar duct papillomatosis, left 07/11/2022 07/11/2022 HERRON (dyspnea on exertion) 07/05/20222021 Last Assessment & Plan: Assessment: chronic unchanged- follows with pulm. Last seen by 04/09/22, OV note scanned into chart with recommendation to follow up in 6 months. Localized edema 01/08/2022 08/01/2022 Diabetes mellitus type 1, controlled, without co mplications 07/13/2021 07/13/2021 Family history of renal cancer 07/13/2021 1 Overview: Had nephrectomy in 1997. Does not have to follow for it. Triggering of digit 04/16/2018 07/13/2021 Arthritis of wrist 02/20/2017 07/13/2021 documented as of this encounter (statuses as of 12/28/2022) [facility] [place] History of Past illness Narrative* Problem Noted Date Resolved Date Chest pain 08/01/2022 08/01/2022 Fatigue 08/01/2022 08/01/2022 Pounding heartbeat 08/01/2022 08/01/2022 Subareolar duct papillomatosis, left 07/11/2022 07/11/2022 HERRON (dyspnea on exertion) 07/05/20222021 Last Assessment & Plan: Assessment: chronic unchanged- follows with pulm. Last seen by 04/09/22, OV note scanned into chart with recommendation to follow up in 6 months. Localized edema 01/08/2022 08/01/2022 Diabetes mellitus type 1, controlled, without co mplications 07/13/2021 07/13/2021 Family history of renal cancer 07/13/2021 1 Overview: Had nephrectomy in 1997. Does not have to follow for it. Triggering of digit 04/16/2018 07/13/2021 Arthritis of wrist 02/20/2017 07/13/2021 documented as of this encounter (statuses as of 12/28/2022) [facility] [place] History of Past illness Narrative* Problem Noted Date Resolved Date Chest pain 08/01/2022 08/01/2022 Fatigue 08/01/2022 08/01/2022 Pounding heartbeat 08/01/2022 08/01/2022 Subareolar duct papillomatosis, left 07/11/2022 07/11/2022 HERRON (dyspnea on exertion) 07/05/20222021 Last Assessment & Plan: Assessment: chronic unchanged- follows with pulm. Last seen by 04/09/22, OV note scanned into chart with recommendation to follow up in 6 months. Localized edema 01/08/2022 08/01/2022 Diabetes mellitus type 1, controlled, without co mplications 07/13/2021 07/13/2021 Family history of renal cancer 07/13/2021 1 Overview: Had nephrectomy in 1997. Does not have to follow for it. Triggering of digit 04/16/2018 07/13/2021 Arthritis of wrist 02/20/2017 07/13/2021 documented as of this encounter (statuses as of 12/29/2022) [facility] [place] History of Past illness Narrative* Problem Noted Date Resolved Date Chest pain 08/01/2022 08/01/2022 Fatigue 08/01/2022 08/01/2022 Pounding heartbeat 08/01/2022 08/01/2022 Subareolar duct papillomatosis, left 07/11/2022 07/11/2022 HERRON (dyspnea on exertion) 07/05/20222021 Last Assessment & Plan: Assessment: chronic unchanged- follows with pulm. Last seen by 04/09/22, OV note scanned into chart with recommendation to follow up in 6 months. Localized edema 01/08/2022 08/01/2022 Diabetes mellitus type 1, controlled, without co mplications 07/13/2021 07/13/2021 Family history of renal cancer 07/13/2021 1 Overview: Had nephrectomy in 1997. Does not have to follow for it. Triggering of digit 04/16/2018 07/13/2021 Arthritis of wrist 02/20/2017 07/13/2021 documented as of this encounter (statuses as of 01/21/2023) [facility] [place] History of Past illness Narrative* Problem Noted Date Resolved Date Chest pain 08/01/2022 08/01/2022 Fatigue 08/01/2022 08/01/2022 Pounding heartbeat 08/01/2022 08/01/2022 Subareolar duct papillomatosis, left 07/11/2022 07/11/2022 HERRON (dyspnea on exertion) 07/05/20222021 Last Assessment & Plan: Assessment: chronic unchanged- follows with pulm. Last seen by 04/09/22, OV note scanned into chart with recommendation to follow up in 6 months. Localized edema 01/08/2022 08/01/2022 Diabetes mellitus type 1, controlled, without co mplications 07/13/2021 07/13/2021 Family history of renal cancer 07/13/2021 1 Overview: Had nephrectomy in 1997. Does not have to follow for it. Triggering of digit 04/16/2018 07/13/2021 Arthritis of wrist 02/20/2017 07/13/2021 documented as of this encounter (statuses as of 01/22/2023) [facility] [place] History of Past illness Narrative* Problem Noted Date Resolved Date Chest pain 08/01/2022 08/01/2022 Fatigue 08/01/2022 08/01/2022 Pounding heartbeat 08/01/2022 08/01/2022 Subareolar duct papillomatosis, left 07/11/2022 07/11/2022 HERRON (dyspnea on exertion) 07/05/20222021 Last Assessment & Plan: Assessment: chronic unchanged- follows with pulm. Last seen by 04/09/22, OV note scanned into chart with recommendation to follow up in 6 months. Localized edema 01/08/2022 08/01/2022 Diabetes mellitus type 1, controlled, without co mplications 07/13/2021 07/13/2021 Family history of renal cancer 07/13/2021 1 Overview: Had nephrectomy in 1997. Does not have to follow for it. Triggering of digit 04/16/2018 07/13/2021 Arthritis of wrist 02/20/2017 07/13/2021 documented as of this encounter (statuses as of 03/21/2023) [facility] [place] History of Past illness Narrative* Problem Noted Date Diagnosed Date Resolved Date Chest pain 08/01/2022 08/01/2022 Fatigue 08/01/2022 08/01/2022 Pounding heartbeat 08/01/2022 2 Subareolar duct papillomatosis, left 07/11/2022 07/11/2022 HERRON (dyspnea on exertion) 07/05/2022 Last Assessment & Plan: Assessment: chronic unchanged- follows with pulm. Last seen by 04/09/22, OV note scanned into chart with recommendation to follow up in 6 months. Localized edema 01/08/2022 08/01/2022 Diabetes mellitus type 1, co ntrolled, without complications 07/13/2021 07/13/2021 Family history of renal cancer 07/13/2021 07/13/2021 Overview: Had nephrectomy in 1997. Does not have to follow for it. Triggering of digit 04/16/2018 07/13/20 21 Arthritis of wrist 02/20/2017 documented as of this encounter (statuses as of 04/23/2023) [facility] [place] History of Past illness Narrative* Problem Noted Date Diagnosed Date Resolved Date Chest pain 08/01/2022 08/01/2022 Fatigue 08/01/2022 08/01/2022 Pounding heartbeat 08/01/2022 2 Subareolar duct papillomatosis, left 07/11/2022 07/11/2022 HERRON (dyspnea on exertion) 07/05/2022 Last Assessment & Plan: Assessment: chronic unchanged- follows with pulm. Last seen by 04/09/22, OV note scanned into chart with recommendation to follow up in 6 months. Localized edema 01/08/2022 08/01/2022 Diabetes mellitus type 1, co ntrolled, without complications 07/13/2021 07/13/2021 Family history of renal cancer 07/13/2021 07/13/2021 Overview: Had nephrectomy in 1997. Does not have to follow for it. Triggering of digit 04/16/2018 07/13/20 21 Arthritis of wrist 02/20/2017 1 documented as of this encounter (statuses as of 06/22/2023) [facility] [place] History of Past illness Narrative* Problem Noted Date Diagnosed Date Resolved Date Chest pain 08/01/2022 08/01/2022 Fatigue 08/01/2022 08/01/2022 Pounding heartbeat 08/01/2022 2 Subareolar duct papillomatosis, left 07/11/2022 07/11/2022 HERRON (dyspnea on exertion) 07/05/2022 Last Assessment & Plan: Assessment: chronic unchanged- follows with pulm. Last seen by 04/09/22, OV note scanned into chart with recommendation to follow up in 6 months. Localized edema 01/08/2022 08/01/2022 Diabetes mellitus type 1, co ntrolled, without complications 07/13/2021 07/13/2021 Family history of renal cancer 07/13/2021 07/13/2021 Overview: Had nephrectomy in 1997. Does not have to follow for it. Triggering of digit 04/16/2018 07/13/20 21 Arthritis of wrist 02/20/2017 1 documented as of this encounter (statuses as of 07/18/2023) [facility]-16[facility] History of Past illness Narrative* Problem Noted Date Diagnosed Date Resolved Date Chest pain 08/01/2022 08/01/2022 Fatigue 08/01/2022 08/01/2022 Pounding heartbeat 08/01/2022 2 Subareolar duct papillomatosis, left 07/11/2022 07/11/2022 HERRON (dyspnea on exertion) 07/05/2022 Last Assessment & Plan: Assessment: chronic unchanged- follows with pulm. Last seen by 04/09/22, OV note scanned into chart with recommendation to follow up in 6 months. Localized edema 01/08/2022 08/01/2022 Diabetes mellitus type 1, co ntrolled, without complications 07/13/2021 07/13/2021 Family history of renal cancer 07/13/2021 07/13/2021 Overview: Had nephrectomy in 1997. Does not have to follow for it. Triggering of digit 04/16/2018 07/13/20 21 Arthritis of wrist 02/20/2017 documented as of this encounter (statuses as of 07/18/2023) [facility] History of Past illness Narrative* Problem Noted Date Diagnosed Date Resolved Date Chest pain 08/01/2022 08/01/2022 Fatigue 08/01/2022 08/01/2022 Pounding heartbeat 08/01/2022 2 Subareolar duct papillomatosis, left 07/11/2022 07/11/2022 HERRON (dyspnea on exertion) 07/05/2022 Last Assessment & Plan: Assessment: chronic unchanged- follows with pulm. Last seen by 04/09/22, OV note scanned into chart with recommendation to follow up in 6 months. Localized edema 01/08/2022 08/01/2022 Diabetes mellitus type 1, co ntrolled, without complications 07/13/2021 07/13/2021 Family history of renal cancer 07/13/2021 07/13/2021 Overview: Had nephrectomy in 1997. Does not have to follow for it. Triggering of digit 04/16/2018 07/13/20 21 Arthritis of wrist 02/20/2017 1 documented as of this encounter (statuses as of 08/01/2023) [facility] History of Past illness Narrative* Problem Noted Date Diagnosed Date Resolved Date Chest pain 08/01/2022 08/01/2022 Fatigue 08/01/2022 08/01/2022 Pounding heartbeat 08/01/2022 2 Obesity, Class III, BMI >= 40 07/11/2022 08/02/2023 Subareolar duct papillomatosis, left 07/11/2022 07/11/2022 HERRON (dyspnea on exertion) 07/05/2022 Last Assessment & Plan: Assessment: chronic unchanged- follows with pulm. Last seen by 04/09/22, OV note scanned into chart with recommendation to follow up in 6 months. Localized edema 01/08/2022 08/01/2022 Diabetes mellitus type 1, co ntrolled, without complications 07/13/2021 07/13/2021 Family history of renal cancer 07/13/2021 07/13/2021 Overview: Had nephrectomy in 1997. Does not have to follow for it. Triggering of digit 04/16/2018 07/13/20 21 Arthritis of wrist 02/20/2017 1 documented as of this encounter (statuses as of 08/02/2023) [facility] History of Past illness Narrative* Problem Noted Date Diagnosed Date Resolved Date Chest pain 08/01/2022 08/01/2022 Fatigue 08/01/2022 08/01/2022 Pounding heartbeat 08/01/2022 2 Obesity, Class III, BMI >= 40 07/11/2022 08/02/2023 Subareolar duct papillomatosis, left 07/11/2022 07/11/2022 HERRON (dyspnea on exertion) 07/05/2022 Last Assessment & Plan: Assessment: chronic unchanged- follows with pulm. Last seen by 04/09/22, OV note scanned into chart with recommendation to follow up in 6 months. Localized edema 01/08/2022 08/01/2022 Diabetes mellitus type 1, co ntrolled, without complications 07/13/2021 07/13/2021 Family history of renal cancer 07/13/2021 07/13/2021 Overview: Had nephrectomy in 1997. Does not have to follow for it. Triggering of digit 04/16/2018 07/13/20 21 Arthritis of wrist 02/20/2017 1 documented as of this encounter (statuses as of 12/06/2023) [facility] History of Past illness Narrative* Problem Noted Date Diagnosed Date Resolved Date Chest pain 08/01/2022 08/01/2022 Fatigue 08/01/2022 08/01/2022 Pounding heartbeat 08/01/2022 2 Obesity, Class III, BMI >= 40 07/11/2022 08/02/2023 Subareolar duct papillomatosis, left 07/11/2022 07/11/2022 HERRON (dyspnea on exertion) 07/05/2022 Last Assessment & Plan: Assessment: chronic unchanged- follows with pulm. Last seen by 04/09/22, OV note scanned into chart with recommendation to follow up in 6 months. Localized edema 01/08/2022 08/01/2022 Diabetes mellitus type 1, co ntrolled, without complications 07/13/2021 07/13/2021 Family history of renal cancer 07/13/2021 07/13/2021 Overview: Had nephrectomy in 1997. Does not have to follow for it. Triggering of digit 04/16/2018 07/13/20 21 Arthritis of wrist 02/20/2017 1 documented as of this encounter (statuses as of 12/26/2023) [facility] History of Past illness Narrative* Problem Noted Date Diagnosed Date Resolved Date Chest pain 08/01/2022 08/01/2022 Fatigue 08/01/2022 08/01/2022 Pounding heartbeat 08/01/2022 2 Obesity, Class III, BMI >= 40 07/11/2022 08/02/2023 Subareolar duct papillomatosis, left 07/11/2022 07/11/2022 HERRON (dyspnea on exertion) 07/05/2022 Last Assessment & Plan: Assessment: chronic unchanged- follows with pulm. Last seen by 04/09/22, OV note scanned into chart with recommendation to follow up in 6 months. Localized edema 01/08/2022 08/01/2022 Diabetes mellitus type 1, co ntrolled, without complications 07/13/2021 07/13/2021 Family history of renal cancer 07/13/2021 07/13/2021 Overview: Had nephrectomy in 1997. Does not have to follow for it. Triggering of digit 04/16/2018 07/13/20 21 Arthritis of wrist 02/20/2017 1 documented as of this encounter (statuses as of 12/27/2023) [facility] Miscellaneous Notes* Telephone Encounter - Rachell Calles RN - 08/01/2022 1:[address] Templeton's response to Lisandra's question with her. She voiced understanding. Rachell Calles RN * Telephone Encounter - Chema Templeton MD - 08/01/2022 10:54 AM EST she will not need anymore surgery * Telephone Encounter - Aishwarya Pro LPN - 07/25/2022 11:01 AM EST Patient called with questions regarding yesterday 07/24/[address] Templeton pathology concerns. Patient wanted to know if more tissue was going to need removed from breast? From Dr Templeton note : I am going to email the pathologist and asked if they could review this to see if there is any encroachment of the atypical ductal hyperplasia to the lateral margins. If not and his routine mammogram is all then will be needed. Please advise. [facility] [place] History of Present illness Narrative* Pedro Jacob MD - 08/01/2022 10:03 AM EST Patient presents with: 6 Month Exam HPI: Patient presents today for office visit for follow up. Would like warts on B/L arms evaluated. Discuss 07/05/22 labs. Kidney functions were elevated. Discuss pathology report. HTN: Does not check BP at home. Takes meds consistently. No chest pain No shortness of breath No dizziness No headaches No edema DM: Does not check sugars. Not watching diet and does not exercise. HLD: No myalgias PULM: Still sees Dr. Ennis. CARD: Sees Dr. Cheema Arthritis: Taking Meloxicam. 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 Increased pain in B/L hands and ankles. Would like to discuss CBD oil. Also discussed that voltaren gel would be safer and encouraged her to avoid chronic nsaids if able. Saw Dr Templeton for breast care. Component Latest Ref Rng & Units 07/05/2022 Protein, Total 6.3 - 8.0 g/dL 7.6 Albumin 3.9 - 4.9 g/dL 4.9 Calcium 8.5 - 10.2 mg/dL 10.4 (H) Bilirubin, Total 0.2 - 1.3 mg/dL 0.4 Alkaline Phosphatase 34 - 123 U/L 121 AST 13 - 35 U/L 39 (H) ALT 7 - 38 U/L 43 (H) Glucose 74 - 99 mg/dL 154 (H) BUN 7 - 21 mg/dL 27 (H) Creatinine 0.58 - 0.96 mg/dL 0.97 (H) Sodium 136 - 144 mmol/L 141 Potassium 3.7 - 5.1 mmol/L 4.3 Chloride 97 - 105 mmol/L 102 CO2 22 - 30 mmol/L 28 Anion Gap 9 - 18 mmol/L 11 eGFR >=60 mL/min/1.73m 64 Hemoglobin A1C 4.3 - 5.6 % 7.1 (H) Estimated Average Glucose mg/dL 157 MEDICATIONS: Current Outpatient Medications Medication Sig losartan (COZAAR) 100 mg tablet Take 1 tablet by mouth once daily. hydroCHLOROthiazide (HYDRODIURIL, ESIDRIX) 25 mg tablet Take 1 tablet by mouth once daily. meloxicam (MOBIC) 15 mg tablet Take 1 tablet by mouth once daily. atorvastatin (LIPITOR) 80 mg tablet Take 1 tablet by mouth once daily. amLODIPine (NORVASC) 10 mg tablet Take 10 mg by mouth once daily. Going to double check dosage. metFORMIN ER (FORTAMET) 500 mg 24 hr tablet Take 1 tablet by mouth daily with breakfast. May substitute L. acidophilus-L. rhamnosus 15 billion cell cap Take 1 capsule by mouth once daily. FLORAJEN WOMEN.If on antibiotic, take at least 1-2 hours before or after antibiotic. KEEP REFRIGERATED atenolol (TENORMIN) 50 mg tablet Take 50 mg by mouth once daily. neomycin/polymyxin B/dexametha (VHFUIIYN-PCMFVKHEB-JSIYYCJE OPHTHALMIC) Use in eyes as needed. Cholecalciferol, Vitamin D3, 50 mcg (2,000 unit) cap Take 50 capsules by mouth. aspirin, enteric coated (ASPIRIN, ENTERIC COATED) 81 mg EC tablet Take 81 mg by mouth once daily. Clobetasol taper - compound [facility] Clobetasol 0.07% ointment. Use to affected area twice daily x 4 weeks then at bedtime x 4 weeks then 1-2 times per week. FOLIC ACID/MULTIVIT-MIN/LUTEIN (CENTRUM SILVER ORAL) Take by mouth once daily. Biotin 10,000 mcg cap Take 5,000 mcg by mouth once daily. KRILL OIL ORAL Take 800 mg by mouth once daily. No current facility-administered medications for this visit. ALLERGIES: ALLERGIES Allergen Reactions Erythromycin Rash Miroslava Inhibitors Cough Atenolol Intolerance Sweating, hard time breathing Carvedilol Intolerance Slight headache, leg cramps, sweating Corgard [Nadolol] Intolerance Heavy chest, sweating, hot flashes Diltiazem Intolerance Dizzy/ heart thumping, heard to breathe Metoprolol Intolerance Chest tight, hot flash/sweat Tetracycline Hcl (B* Hives blisters Verapamil Intolerance Short of breath, fatigue, indigestion, rash PAST MEDICAL HISTORY Diagnosis Date Arthritis Diabetes (HCC) Family history of colon cancer Hx of colonic polyps Hypertension ELVER (obstructive sleep apnea) uses cpap. sees Dr. Walters. Snoring TIA (transient ischemic attack) 2014 PAST SURGICAL HISTORY Procedure Laterality Date BACK SURGERY HX BREAST BX NEEDLE CORE LEFT Left 06/19/2022 ultrasound guided needle core biopsy left breast BREAST SURGERY HX 07/11/2022 left breast lumpectomy COLONOSCOPY FLX DX W/COLLJ SPEC WHEN PFRMD 08/25/2015 Colonoscopy COLONOSCOPY FLX DX W/COLLJ SPEC WHEN PFRMD 02/25/2020 Colonoscopy 5 yr interval ESOPHAGOGASTRODUODENOSCOPY TRANSORAL DIAGNOSTIC 02/25/2020 esophagitis, intestinal metaplasia on stomach biopsies. Repeat in 2-3 years HAND SURGERY HX several on both hands HYSTERECTOMY HX with subsequent BSO KIDNEY SURGERY HX 1997 left kidney removed from cancer LEFT HEART CATH,PERCUTANEOUS normal per Dr. Cheema TONSILLECTOMY & ADENOIDECTOMY <AGE 10 FAMILY HISTORY Problem Relation Age of Onset Heart disease Mother Emphysema Mother Colon Cancer Father Heart Father Diabetes Brother other (diverticulitis) Maternal Grandmother Heart Attack Maternal Grandmother No Known Problems Maternal Grandfather Diabetes Paternal Grandmother Heart Attack Paternal Grandfather Stroke Paternal Grandfather Social History Tobacco Use Smoking status: Former Packs/day: 1.00 Types: Cigarettes Quit date: 12/24/2009 Years since quittin.6 Smokeless tobacco: Never Vaping Use Vaping Use: Former Substance Use Topics Alcohol use: Not Currently Comment: rarely Drug use: No Reviewed current medications, allergies, past medical history, surgical history, family history andsocial history today. REVIEW OF SYSTEMS RESPIRATORY: Negative for cough, hemoptysis, wheezing, COPD, dyspnea or shortness of breath CARDIOVASCULAR: Negative for chest pain, leg swelling, hypertension, CHF or palpitations All other reviewed and negative other than HPI. HEALTH MAINTENANCE: Reviewed health maintenance issues today and recommended the following in detail. DEPRESSION ASSESSMENT Never done INFLUENZA(1) due on 05/17/2022 PNEUMOCOCCAL: 65+(3 - PPSV23 if available, else PCV20) due on 07/10/2022 DIABETIC FOOT EXAM due on 07/13/2022 URINE ALBUMIN:CREATININE RATIO due on 07/20/2022 LDL CHOLESTEROL due on 07/20/2022 VITALS: BP 130/82 Pulse 65 Ht 167.6 cm (5' 6) Wt 124.6 kg (274 lb 9.6 oz) SpO2 96% BMI 44.32 kg/m Last 4 Encounter Wt Readings: Date: Wt: 07/23/2022 125 kg (275 lb 9.6 oz) 07/05/2022 124.3 kg (274 lb) 06/12/2022 123.3 kg (271 lb 12.8 oz) 01/18/2022 121.1 kg (267 lb) PHYSICAL EXAMINATION: General appearance: Well appearing, alert, in no acute distress, well-hydrated, well nourished. Skin: has three keratotic lesions. One on left forearm and right elbow are the ones that really bother her. Discussed shave excision. Will follow the smaller area on her right forearm. Head: Normocephalic, no masses, lesions, tenderness or abnormalities Neck: Supple, no adenopathy; thyroid symmetric, normal size, no bruits Lungs: Lungs clear to auscultation. No wheezing, rhonchi, rales Heart: RRR without murmur, gallop, or rubs. No ectopy Abdomen: Normal abdominal exam, Abdomen soft, non-tender. Bowel sounds normal. No masses, organomegaly Extremities: No deformities, edema, skin discoloration, clubbing or cyanosis. Good capillary refill. Musculoskeletal: No joint swelling, deformity, or tenderness Feet:Shoes and socks removed, No deformities, ulcers, calluses, normal distal pulses, and sensitiveto 10 gm monofilament ASSESSMENT/PLAN: 1. Aortic valve stenosis, etiology of cardiac valve disease unspecified - ICD9: 424.1, ICD10: I35.0(primary diagnosis) - continue to see cardiology 2. Encounter for immunization - ICD9: V03.89, ICD10: Z23 - INFLUENZA SEASONAL QUADRIVALENT HIGH DOSE AGE 65+ - PNEUMOCOCCAL VACCINE (PREVNAR 20) 3. Primary hypertension - ICD9: 401.9, ICD10: I10 - good control - Continue current medication(s) - Goal of BP <130/80 4. Pulmonary HTN (HCC) - ICD9: 416.8, ICD10: I27.20 - as above. Sees cardiology and pulmonary. 5. ELVER (obstructive sleep apnea) - ICD9: 327.23, ICD10: G47.33 - stable. 6. Controlled type 2 diabetes mellitus without complication, without long-term current use of insulin (HCC) - ICD9: 250.00, ICD10: E11.9 Controlled. - follow labs. - LIPID PANEL BASIC - ALBUMIN/CREAT RATIO RND UR 7. History of renal cell cancer - ICD9: V10.52, ICD10: Z85.528 - does not require follow up. Contributing to renal function due to nephrectomy. Limit nsaids and push fludis before next ov 8. Psoriasis - ICD9: 696.1, ICD10: L40.9 - stable. 9 Psoriatic arthritis (HCC) - ICD9: 696.0, ICD10: L40.50 -consider rheum 11. Elevated liver enzymes - ICD9: 790.5, ICD10: R74.8 - check labs. - HEPATIC FUNCTION PNL - HEP ACUTE PANEL/RNA 12. CKD (chronic kidney disease) stage 2, GFR 60-89 ml/min - ICD9: 585.2, ICD10: N18.2 - BASIC METABOLIC PNL - URINALYSIS, WITH MICROSCOPIC Pedro Jacob MD RTO for shave excision. [facility] [place] History of Present illness Narrative* Chema Templeton MD - 07/23/2022 2:34 PM EST Subjective: Patient is status post excision of an intraductal papilloma on her left breast. Pathology report came back as intraductal papilloma with florid usual ductal hyperplasia. Radial scar and adenosis core biopsy site changes with the clip. There was also an area of focal atypical ductal hyperplasia however in reviewing the path report I do not see if they say that this is extending to the margins or not. Patient states that she has a little bit of dimpling in her nipple and notices that she is had the surgery but not really experiencing any pain at this time. Objective:Blood pressure 124/60, pulse 74, temperature 36.4 C (97.6 F), resp. rate 16, height 167.6cm (5' 6), weight 125 kg (275 lb 9.6 oz), SpO2 97 %. Incision is healing well on the inferior aspect of the nipple areolar complex. Noticed some slight indentation to the nipple but not much at all. There is no signs of hematoma formation. Subjective: Atypical ductal hyperplasia Plan: I am going to email the pathologist and asked if they could review this to see if there is any encroachment of the atypical ductal hyperplasia to the lateral margins. If not and his routine mammogram is all then will be needed. However if they state that it does encroach into the margins then reexcision of this is going to need to be done. documented [facility] [place] Miscellaneous Notes* Telephone Encounter - Anika Degroot LPN - 07/17/2022 11:54 AM EDT Patient has been identified by name and date of : Yes Patient phones for refill(s): Requested Prescriptions Pending Prescriptions Disp Refills losartan (COZAAR) 100 mg tablet 90 tablet 3 Sig: Take 1 tablet by mouth once daily. hydroCHLOROthiazide (HYDRODIURIL, ESIDRIX) 25 mg tablet 90 tablet 1 Sig: Take 1 tablet by mouth once daily. meloxicam (MOBIC) 15 mg tablet 90 tablet 1 Sig: Take 1 tablet by mouth once daily. Date of last office visit in primary care: 01/18/2022 Next appointment scheduled 08/01/22 Please advise. Thank you. Anika Degroot LPN documented in this encounter[facility] [place] History of Past illness Narrative* Problem Noted Date Resolved Date Subareolar duct papillomatosis, left 07/11/2022 07/11/2022 Diabetes mellitus type 1, controlled, without co mplications 07/13/2021 07/13/2021 Family history of renal cancer 07/13/2021 1 Overview: Had nephrectomy in 1997. Does not have to follow for it. Triggering of digit 04/16/2018 07/13/2021 Arthritis of wrist 02/20/2017 07/13/2021 documented as of this encounter (statuses as of 07/17/2022) [facility] History of Past illness Narrative* Problem Noted Date Resolved Date Subareolar duct papillomatosis, left 07/11/2022 07/11/2022 Diabetes mellitus type 1, controlled, without co mplications 07/13/2021 07/13/2021 Family history of renal cancer 07/13/2021 1 Overview: Had nephrectomy in 1997. Does not have to follow for it. Triggering of digit 04/16/2018 07/13/2021 Arthritis of wrist 02/20/2017 07/13/2021 documented as of this encounter (statuses as of 07/17/2022) [facility] History of Past illness Narrative* Problem Noted Date Resolved Date Subareolar duct papillomatosis, left 07/11/2022 07/11/2022 Diabetes mellitus type 1, controlled, without co mplications 07/13/2021 07/13/2021 Family history of renal cancer 07/13/2021 1 Overview: Had nephrectomy in 1997. Does not have to follow for it. Triggering of digit 04/16/2018 07/13/2021 Arthritis of wrist 02/20/2017 07/13/2021 documented as of this encounter (statuses as of 07/23/2022) [facility] Miscellaneous Notes* Telephone Encounter - Abhay Doss RN - 07/09/2022 9:45 AM EDT Message left with lab results and instructed pt to f/u with PCP. Pt scheduled to see Dr Jacob on 08/01/22. My phone number provided for any questions. Abhay Doss RN July 09, 2022 9:45 AM ' * Telephone Encounter - Krystal Case APRN.CNP - 07/06/2022 4:43 PM EDT Please have patient follow up with PCP regarding her slightly diminished kidney function. Thanks! Krystal Case APRN.BEHAVIORAL CONSULTANT documented in this encounterSelect [facility] [place] Instructions* Patient Instructions* Krystal Case APRN.CNP - 07/05/2022 12:12 PM EDT PATIENT PREOPERATIVE INSTRUCTIONS Chema Templeton MD , MD has scheduled you for your procedure at this surgery center: [facility]: [phone] -- [address] [address]. Please read below carefully for your personalized instructions. Dietary Restrictions: - No solid food after midnight. - You may have 12 ounces of clear liquids (water, clear juices such as apple juice or gatorade, carbonated beverages, clear tea, black coffee, jello) until 2 hours before scheduled arrival at facility. - Do not drink any alcohol after midnight the night before your surgery. Do not take oral diabetic medication day of surgery. Medications: Unless instructed differently below, stay on all of your medications until your surgery. Approved medications to take the morning of surgery with a sip of water: Taking all your regular medications the night before but DO NOT take your losartan and metformin. If you start any new medications after today's visit, please contact the surgeon's office. Blood Thinning Medications: - Stop NSAIDS (Ibuprofen, Advil, Aleve, Motrin, Celebrex, Mobic, etc.) 7 days before surgery, as directed by your surgeon. - Stop Aspirin 7 days before surgery, as directed by your surgeon. - Stop Vitamin E, ALL multi-vitamins, herbals and dietary supplements 7 days before surgery. - You may take Tylenol (Acetaminophen) or any of your pain medications that do not contain aspirin or NSAIDS as needed. Important Reminders: - Candy, mints, and tobacco products are NOT permitted the morning of surgery. - Hearing aids, dentures and glasses may be worn the morning of surgery. - NO jewelry, body piercings, makeup, hairpins or contacts are to be worn the day of surgery. If you develop symptoms such as a fever, cold, or flu, or have other changes to your health within TWO DAYS of scheduled surgery or the morning of surgery, please contact the surgery center above. Personal Belongings: -Please have photo ID and insurance cards. -If you do not have a copy of advance directives on file with us, please bring a copy with you on the day of surgery. - Leave ALL valuables and money at home or with family members. For Outpatient Procedures: - YOU MUST HAVE A RESPONSIBLE MAPPING SPECIALIST TAKE YOU HOME. A FOOTWEAR SALES ASSOCIATE OR SUPERVISOR COOPERAGE SHOP CANNOT BE MADE A RESPONSIBLE MAPPING SPECIALIST. - We recommend that a responsible person stays with you overnight to take care of you. - You cannot stay in a hotel alone after outpatient surgery. You will not be permitted to have yoursurgery, if you do not have someone to take care of you. Arrival Time for Surgery: - The Surgery Center or hospital where you are having surgery will call the afternoon before surgery (or Saturday for Saturday surgery) with a scheduled arrival time. - If you have not heard by 4 pm, please contact the surgery center above. Please be aware that emergency situations arise, which may delay or change your surgical time. If this happens, we will notify you as soon as possible and regret any inconvenience. If you already have an Advance Directive, please fax a copy to [phone] or email to for it to be added to your chart. If you do not have an Advance Directive, you can find the appropriate form and more information at [email or web address]. We recommend that youcomplete the Advance Directive form found on the website and bring it with you the day of your surgery. It can be witnessed and scanned into your chart that day. Krystal Case APRN.CHE documented in this encounterSelect [facility] [place] History and physical note * Krystal Case APRN.CNP - 07/05/2022 11:41 AM EDT HISTORY AND PHYSICAL EXAMINATION SERVICE DATE: 07/05/2022 SERVICE TIME: 11:41 AM PRIMARY CARE PHYSICIAN: Pedro Jacob MD REASON FOR VISIT: Lisandra Abreu is a 66 year old female who is scheduled for Procedure(s): PLACEMENT OF BREAST LOCALIZATION DEVICE(S) PERCUTANEOUS; FIRST LESION, ULTRASOUND GUIDANCE (Left) EXCISION BREAST LESION IDENTIFIED BY PREOPERATIVE PLACEMENT RADIOLOGICAL MARKER, OPEN, SINGLE LESION (Left) at the request of Dr. Chema Templeton for consultation. My final recommendation will be communicated back to the requesting physician by way of shared medical record or letter. Subjective The patient has the following: ACTIVE PROBLEM LIST Primary Hypertension Lichen Sclerosus Psoriatic Arthritis (Hcc) Psoriasis Family History of Colon Cancer Elver (Obstructive Sleep Apnea) Tia (Transient Ischemic Attack) Controlled Type 2 Diabetes Mellitus Without Complication, Without Long-Term Current Use of Insulin (Hcc) History of Renal Cell Cancer Pulmonary Htn (Hcc) [place] (Dyspnea On Exertion) Nonobstructive Atherosclerosis of Coronary Artery Chf (Congestive Heart Failure) (Hcc) Aortic Valve Stenosis COVID-19 Immunization Status Overdue - COVID-19 VACCINE (5 - Booster for Moderna series) Overdue since 02/21/2022 12/27/2021 Imm Admin: COVID-19 original vaccine, full dose, monovalent (MODERNA) 08/01/2021 Imm Admin: COVID-19 original vaccine, full dose, monovalent (MODERNA) 12/01/2020 Imm Admin: COVID-19 original vaccine, full dose, monovalent (MODERNA) Only the first 3 history entries have been loaded, but more history exists. CHIEF COMPLAINT: Pre-op evaluation HPI: 66 year old female here for pre-op evaluation. History of lumpectomy on left breast years ago.Abnormal mammogram 10/2021 with follow up US showing likely benign finding. Follow up mammogram 05/2022 with f/u biopsy showing hyperplasia. Denies FH of breast cancer, breast pain, swelling/redness, nipple discharge, or skin dimpling. REVIEW OF SYSTEMS: General: No weight loss, malaise or fevers. Neurological: Positive for: TIA. Negative for: headaches, impaired sensorium, multiple sclerosis, Parkinson's disease and seizures. Respiratory: Positive for: dyspnea and obstructive sleep apnea. Negative for: asthma, bronchitis, current cough, orthopnea and tobacco use. Cardiovascular: Positive for: CAD, CHF, hyperlipidemia, hypertension and murmur/valvular heart disease Negative for: angina, arrhythmia, atrial fibrillation, chest pain and DVT/PE. GI: No history of GI symptoms or problems. No history of esophageal varices, recent ascites, or ETOH greater than 2 drinks per day. : S/p left nephrectomy Negative for: dysuria, frequent urination, hematuria, urinary incontinence, renal failure and urgency. 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 Endocrine: Positive for: diabetes mellitus. Hematology: No history of bleeding or clotting disorder. Patient is not taking anti-coagulation or platelet medications. No history of hematological symptoms or problems. Oncology: S/p left nephrectomy due to cancer no radiation or chemo. No history of CA metastasis, chemo within 30 days, or radiotherapy within 90 days. No history of oncological symptoms or problems. Psych: No history of psychiatric symptoms or problems. Musculoskeletal: Positive for: joint pain (Generalized joint pain) and swelling (intermittent- chronic unchanged). Skin: Negative for lesions, rash and itching. PAST MEDICAL HISTORY Diagnosis Date Arthritis Diabetes (HCC) Family history of colon cancer Hx of colonic polyps Hypertension ELVER (obstructive sleep apnea) uses cpap. sees Dr. Walters. Snoring TIA (transient ischemic attack) 2014 PAST SURGICAL HISTORY Procedure Laterality Date BACK SURGERY HX BREAST BX NEEDLE CORE LEFT Left 06/19/2022 ultrasound guided needle core biopsy left breast BREAST SURGERY HX left breast lumpectomy COLONOSCOPY FLX DX W/COLLJ SPEC WHEN PFRMD 08/25/2015 Colonoscopy COLONOSCOPY FLX DX W/COLLJ SPEC WHEN PFRMD 02/25/2020 Colonoscopy 5 yr interval ESOPHAGOGASTRODUODENOSCOPY TRANSORAL DIAGNOSTIC 02/25/2020 esophagitis, intestinal metaplasia on stomach biopsies. Repeat in 2-3 years HAND SURGERY HX several on both hands HYSTERECTOMY HX with subsequent BSO KIDNEY SURGERY HX 1997 left kidney removed from cancer LEFT HEART CATH,PERCUTANEOUS normal per Dr. Cheema TONSILLECTOMY & ADENOIDECTOMY <AGE 12 FAMILY HISTORY Problem Relation Age of Onset Heart disease Mother Emphysema Mother Colon Cancer Father Heart Father Diabetes Brother other (diverticulitis) Maternal Grandmother Heart Attack Maternal Grandmother No Known Problems Maternal Grandfather Diabetes Paternal Grandmother Heart Attack Paternal Grandfather Stroke Paternal Grandfather Social History Tobacco Use Smoking status: Former Packs/day: 1.00 Types: Cigarettes Quit date: 12/24/2009 Years since quittin.5 Smokeless tobacco: Never Vaping Use Vaping Use: Former Substance Use Topics Alcohol use: Not Currently Comment: rarely Drug use: No Prior to Admission medications as of 07/05/22 1146 Medication Sig Last Dose Taking atorvastatin (LIPITOR) 80 mg tablet Take 1 tablet by mouth once daily. Taking Yes amLODIPine (NORVASC) 10 mg tablet Take 10 mg by mouth once daily. Going to double check dosage. Taking Yes metFORMIN ER (FORTAMET) 500 mg 24 hr tablet Take 1 tablet by mouth daily with breakfast. May substitute Taking Yes hydroCHLOROthiazide (HYDRODIURIL, ESIDRIX) 25 mg tablet Take 1 tablet by mouth once daily. Taking Yes meloxicam (MOBIC) 15 mg tablet Take 1 tablet by mouth once daily. Taking Yes L. acidophilus-L. rhamnosus 15 billion cell cap Take 1 capsule by mouth once daily. FLORAJEN WOMEN.If on antibiotic, take at least 1-2 hours before or after antibiotic. KEEP REFRIGERATED Taking Yes losartan (COZAAR) 100 mg tablet Take 1 tablet by mouth once daily. Taking Yes atenolol (TENORMIN) 50 mg tablet Take 50 mg by mouth once daily. Taking Yes neomycin/polymyxin B/dexametha ([id number] OPHTHALMIC) Use in eyes as needed. Taking Yes Cholecalciferol, Vitamin D3, 50 mcg (2,000 unit) cap Take 50 capsules by mouth. Taking Yes aspirin, enteric coated (ASPIRIN, ENTERIC COATED) 81 mg EC tablet Take 81 mg by mouth once daily. Taking Yes Clobetasol taper - compound H Clobetasol 0.07% ointment. Use to affected area twice daily x 4 weeks then at bedtime x 4 weeks then 1-2 times per week. Taking Yes FOLIC ACID/MULTIVIT-MIN/LUTEIN (CENTRUM SILVER ORAL) Take by mouth once daily. Taking Yes Biotin 10,000 mcg cap Take 5,000 mcg by mouth once daily. Taking Yes KRILL OIL ORAL Take 800 mg by mouth once daily. Taking Yes No medication comments found. ALLERGIES Allergen Reactions Erythromycin Rash Miroslava Inhibitors Cough Atenolol Intolerance Sweating, hard time breathing Carvedilol Intolerance Slight headache, leg cramps, sweating Corgard [Nadolol] Intolerance Heavy chest, sweating, hot flashes Diltiazem Intolerance Dizzy/ heart thumping, heard to breathe Metoprolol Intolerance Chest tight, hot flash/sweat Tetracycline Hcl (B* Hives blisters Verapamil Intolerance Short of breath, fatigue, indigestion, rash Objective PHYSICAL EXAM: General: alert and oriented and morbidly obese. Pertinent negatives noted - not distressed. Skin: normal color, no rash or lesions. HEENT: pupils equal round and pupils reactive to light. Pertinent negatives noted - no carotid bruit. Cardiovascular: Pulse characterized as regular.Positive for murmur. Findings of a 2/6 grade heart murmur, low pitched with a harsh quality, and a location of: ULSB. Respiratory: normal breath sounds, no wheezes or crackles. Abdomen: soft. Pertinent negatives noted - not tender. Extremities: no deformity, no edema or tenderness, no joint swelling or clubbing. Neurological: normal cognition and motor skills. Gait normal. No weakness or sensory deficit. PAIN ASSESSMENT: VITALS: BP 140/71 Pulse 61 Temp (Src) 97.5 (Temporal) Resp 16 Ht 5' 6 (1.68m) Wt 274 lb (124.3kg) SpO2 98% BMI 44.25 kg/(m^2). Diagnostic tests reviewed for today's visit: Lab Value Units Date High Low HB No results within date range. HCT No results within date range. WBC No results within date range. PLT No results within date range. NA No results within date range. K No results within date range. GLUC No results within date range. BUN No results within date range. CREAT No results within date range. PTSEC No results within date range. INR No results within date range. APTT No results within date range. ALT No results within date range. AST No results within date range. TBILI No results within date range. TSH No results within date range. Lab Value Units Date High Low HCGQT No results within date range. UHCG No results within date range. HCG, BODY* No results within date range. Lab Value Units Date High Low ABORHD No results within date range. ABSCREEN No results within date range. Hemoglobin A1C (%) Date Value 01/18/2022 6.7 07/20/2021 7.1 No results found for this or any previous visit (from the past 8760 hour(s)). No results found for this or any previous visit (from the past 78763 hour(s)). Assessment TIA (transient ischemic attack) Assessment: no residual effects. ELVER (obstructive sleep apnea) Assessment: using CPAP nightly HERRON (dyspnea on exertion) Assessment: chronic unchanged- follows with pulm. Last seen by 04/09/22, OV note scanned into chart with recommendation to follow up in 6 months. Nonobstructive atherosclerosis of coronary artery Assessment: [facility] 02/2021 with 40% stenosis of the RCA/ circumflex artery. Last seen by Renetta BOLTON in cardiology 03/06/22 [facility] with recommendation for follow up in 5 months. CHF (congestive heart failure) (HCC) Assessment: Echo 01/2022 EF 55% with stage 1 diastolic dysfunction. Aortic valve stenosis Assessment:mild per cardiology OV- echo 01/2022 doesn't mention this. Controlled type 2 diabetes mellitus without complication, without long-term current use of insulin (HCC) Assessment: Last A1C on 01/2022 was 6.7%. Will recheck today. Pulmonary HTN (HCC) Assessment: echo 01/2022 pulmonary artery pressure of 24. Primary hypertension Assessment: on rx Last 3 Encounter BP Readings: Date: BP: 07/05/2022 140/71 06/26/2022 124/72 06/12/2022 122/77 Abdul Activity Status Index: METS: Take care of self; that is eating, dressing, bathing, using the toilet (2.75 METs) DASI Score: 2.75 Patient denies any chest pain or undue shortness of breath with the above physical activity. Clinical Frailty Scale: 3. Well, with treated comorbid disease STOP-Bang Score: BMI greater than 35 kg/m^2 Patient over 50 years old Non-male patient STOP-Bang Score: 2 (ELVER- using CPAP) [id number] Score: Age: 65-74 Sex: female CHF history: Yes Hypertension history: Yes Stroke/TIA/thromboembolism history: Yes Vascular disease history: No Diabetes history: Yes [id number] Score: 7 ARISCAT Score: Age: 51-80 ARISCAT Score: ASA Class: 3 ANESTHESIA FINDINGS: Intubation History: No history of difficult intubation. No abnormal airway history Significant Anesthesia Considerations: none Airway History: No history of difficult airway No abnormal airway history I - PHYSICAL EVALUATION AIRWAYTracheostomy tube not present Mallampati: II. TM distance: >3 FB. Neck ROM: full ROM without neurological symptoms. Mouth opening: adequate. Short neck: yes. Thick neck: yes DENTAL Dental findings: teeth intact and missing tooth/teeth. II - ANESTHESIA PLAN ASA Score: 3 Anesthetic Plan: MAC Prepared for Surgery: optimally prepared for surgery, pending [see comment]. DOS glucose CONSULTS: Patient does not require consults for optimization at this time Planned Anesthetic: MAC The Following Tests/Procedures Have Been Initiated: Orders Placed This Encounter HGB A1C Standing Status: Future Number of Occurrences: 1 Standing Expiration Date: 09/04/2022 Comp Metabolic Panel Standing Status: Future Number of Occurrences: 1 Standing Expiration Date: 09/04/2022 Instructions Given to Patient: Instructions located in the after visit summary. Patient given verbal and written preop instructions and voices comprehension and compliance. SIGNATURE: Krystal Case APRN.CNP PATIENT NAME: Lisandra Abreu DATE: July 05, 2022 TIME: 11:41 AM PAGER/CONTACT #: [facility] [place] Miscellaneous Notes* Telephone Encounter - Annie Yepez - 07/02/2022 3:32 PM EDT Patient scheduled at [facility] for Needle Loc at 1030 per Thalia at [facility] Surgery at 1130 AM [facility] will call with an exact arrival time Annie Yepez Construction Quality Control Manager * Telephone Encounter - Chema Templeton MD - 07/02/2022 3:13 PM EDT done * Telephone Encounter - Chema Templeton MD - 07/02/2022 2:01 PM EDT This is fine * Telephone Encounter - Annie Yepez - 07/02/2022 11:36 AM EDT Patient left voicemail stating she received a covid shot today. Patient wanted to make Dr. Templeton and staff aware and wasn't sure if it interfered with breast surgery scheduled 07/11 in [place] Please advise Thank you Annie Yepez Construction Quality Control Manager * Telephone Encounter - Maci Spann - 06/26/2022 11:57 AM EDT 07-11-22 L/BREAST PRADO documented in this encounterSelect [facility] [place] Nurse Note* Jessica Ngo RN - 06/26/2022 9:49 AM EDT REVIEW OF SYSTEMS: General: The patient denies fatigue, denies weight loss, denies weight gain, denies feeling hot, and denies feelings of cold. Eyes: The patient denies glaucoma, denies eye injury/surgery, wears glasses or contacts. Ear/Nose/Throat: The patient denies allergies, denies hayfever, denies ear infections, and denies bloody noses. Cardiovascular: The patient denies chest pain, NOTES heart disease, NOTES high blood pressure,denies cardiac stent, denies prior heart attack, denies irregular heart beat, NOTES high cholesterol, denies poor circulation, denies heart failure, other cardiac issues, denies claudication, denies cold feet, denies peripheral arterial stent. Respiratory: The patient denies tuberculosis, denies pneumonia, denies frequent cough, denies pulmonary embolism, NOTES shortness of breath, and denies coughing up blood. Gastrointestinal: The patient denies difficulty swallowing, denies acid reflux, denies ulcers, denies vomiting, denies jaundice/hepatitis, denies gallbladder problems, denies black or tarry stools, denies hemorrhoids, denies bleeding from rectum, denies diverticulitis, denies constipation, denies diarrhea, denies loss of stool control, and denies hernias. Kidney/Bladder: The patient denies kidney stones, NOTES urine infections, and denies bloody urine. Skin: The patient denies a history of skin cancer, denies bleeding/changing moles, and denies a history of skin rash. Neurologic: The patient denies a history of epilepsy/convulsions, denies headaches, denies head/spinal injuries, and NOTES stroke/TIA. Psychiatric: The patient denies psychiatric medications, denies depression, and denies voices, denies substance abuse. Endocrine: The patient denies thyroid disorders, NOTES diabetes, and denies hormonal problems. Hematologic: The patient denies a history of bruising, denies bleeding, and denies anemia, denies blood clots. Infections: The patient denies a history of measles and mumps, denies rheumatic fever, and denies sexually transmitted diseases. Musculoskeletal: The patient denies back pain/injury, denies back problems, denies sciatica, deniesknee/foot trouble, denies arthritis, or denies gout. When was patient's last Mammogram screening? 2021 Last Colonoscopy: 2019 Jessica Ngo RN documented in this encounterSelect [facility] [place]22 History of Present illness Narrative* Chema Templeton MD - 06/26/2022 9:40 AM EDT HISTORY AND PHYSICAL - BREAST COMPLAINT Lisandra Abreu 1955 CHIEF COMPLAINT: Intraductal papilloma of breast, left (primary encounter diagnosis) HPI: The patient is a 66 year old female with a complaint of an abnormal mammogram. The patient hada mammogram with ultrasound on 06/05/22 which demonstrated left breast leason 4:00 +3: The patient denies a history of breast masses. She does not perform a self breast exam routinely. She notes no skin changes. She denies nipple discharge. She notes no axillary masses. She notes no family history of breast problems. She notes no significant breast trauma or breast difficulties in the past. Patient underwent an ultrasound-guided needle core biopsy of this completed in the office on 06/19/2022. This came back as an intraductal papilloma with usual ductal hyperplasia. PAST MEDICAL HISTORY Diagnosis Date Arthritis Diabetes (HCC) Family history of colon cancer Hx of colonic polyps Hypertension ELVER (obstructive sleep apnea) uses cpap. sees Dr. Walters. Snoring TIA (transient ischemic attack) 2014 PAST SURGICAL HISTORY Procedure Laterality Date BREAST BX NEEDLE CORE LEFT Left 06/19/2022 ultrasound guided needle core biopsy left breast COLONOSCOPY FLX DX W/COLLJ SPEC WHEN PFRMD 08/25/2015 Colonoscopy COLONOSCOPY FLX DX W/COLLJ SPEC WHEN PFRMD 02/25/2020 Colonoscopy 5 yr interval ESOPHAGOGASTRODUODENOSCOPY TRANSORAL DIAGNOSTIC 02/25/2020 esophagitis, intestinal metaplasia on stomach biopsies. Repeat in 2-3 years HAND SURGERY HX several on both hands HYSTERECTOMY HX with subsequent BSO KIDNEY SURGERY HX 1997 left kidney removed from cancer LEFT HEART CATH,PERCUTANEOUS normal per Dr. Cheema Current Outpatient Medications Medication Sig Dispense Refill atorvastatin (LIPITOR) 80 mg tablet Take 1 tablet by mouth once daily. 90 tablet 1 amLODIPine (NORVASC) 10 mg tablet Take 10 mg by mouth once daily. Going to double check dosage. metFORMIN ER (FORTAMET) 500 mg 24 hr tablet Take 1 tablet by mouth daily with breakfast. May substitute 90 tablet 3 hydroCHLOROthiazide (HYDRODIURIL, ESIDRIX) 25 mg tablet Take 1 tablet by mouth once daily. 90 tablet 1 meloxicam (MOBIC) 15 mg tablet Take 1 tablet by mouth once daily. 90 tablet 1 L. acidophilus-L. rhamnosus 15 billion cell cap Take 1 capsule by mouth once daily. FLORAJEN WOMEN.If on antibiotic, take at least 1-2 hours before or after antibiotic. KEEP REFRIGERATED 30 capsule 11 losartan (COZAAR) 100 mg tablet Take 1 tablet by mouth once daily. 90 tablet 3 atenolol (TENORMIN) 50 mg tablet Take 50 mg by mouth once daily. neomycin/polymyxin B/dexametha ([id number] OPHTHALMIC) Use in eyes as needed. Cholecalciferol, Vitamin D3, 50 mcg (2,000 unit) cap Take 50 capsules by mouth. aspirin, enteric coated (ASPIRIN, ENTERIC COATED) 81 mg EC tablet Take 81 mg by mouth once daily. Clobetasol taper - compound [facility] Clobetasol 0.07% ointment. Use to affected area twice daily x 4 weeks then at bedtime x 4 weeks then 1-2 times per week. 1 Tube 2 FOLIC ACID/MULTIVIT-MIN/LUTEIN (CENTRUM SILVER ORAL) Take by mouth once daily. Biotin 10,000 mcg cap Take 5,000 mcg by mouth once daily. KRILL OIL ORAL Take 800 mg by mouth once daily. No current facility-administered medications for this visit. ALLERGIES: Erythromycin, Miroslava Inhibitors, Atenolol, Carvedilol, Corgard [Nadolol], Diltiazem, Metoprolol, Tetracycline Hcl (Bulk), and Verapamil PERSONAL HISTORY: Social History Tobacco Use Smoking status: Former Packs/day: 1.00 Types: Cigarettes Quit date: 12/24/2009 Years since quittin.5 Smokeless tobacco: Never Vaping Use Vaping Use: Former Substance Use Topics Alcohol use: Not Currently Comment: rarely Drug use: No FAMILY HISTORY: FAMILY HISTORY Problem Relation Age of Onset Heart disease Mother Emphysema Mother Colon Cancer Father Heart Father Diabetes Brother other (diverticulitis) Maternal Grandmother Heart Attack Maternal Grandmother No Known Problems Maternal Grandfather Diabetes Paternal Grandmother Heart Attack Paternal Grandfather Stroke Paternal Grandfather REVIEW OF SYMPTOMS: The review of systems data was entered by the nurse and reviewed by tn Nursing Notes: Jessica Ngo RN 06/26/2022 9:52 AM Signed REVIEW OF SYSTEMS: General: The patient denies fatigue, denies weight loss, denies weight gain, denies feeling hot, and denies feelings of cold. Eyes: The patient denies glaucoma, denies eye injury/surgery, wears glasses or contacts. Ear/Nose/Throat: The patient denies allergies, denies hayfever, denies ear infections, and denies bloody noses. Cardiovascular: The patient denies chest pain, NOTES heart disease, NOTES high blood pressure,denies cardiac stent, denies prior heart attack, denies irregular heart beat, NOTES high cholesterol, denies poor circulation, denies heart failure, other cardiac issues, denies claudication, denies cold feet, denies peripheral arterial stent. Respiratory: The patient denies tuberculosis, denies pneumonia, denies frequent cough, denies pulmonary embolism, NOTES shortness of breath, and denies coughing up blood. Gastrointestinal: The patient denies difficulty swallowing, denies acid reflux, denies ulcers, denies vomiting, denies jaundice/hepatitis, denies gallbladder problems, denies black or tarry stools, denies hemorrhoids, denies bleeding from rectum, denies diverticulitis, denies constipation, denies diarrhea, denies loss of stool control, and denies hernias. Kidney/Bladder: The patient denies kidney stones, NOTES urine infections, and denies bloody urine. Skin: The patient denies a history of skin cancer, denies bleeding/changing moles, and denies a history of skin rash. Neurologic: The patient denies a history of epilepsy/convulsions, denies headaches, denies head/spinal injuries, and NOTES stroke/TIA. Psychiatric: The patient denies psychiatric medications, denies depression, and denies voices, denies substance abuse. Endocrine: The patient denies thyroid disorders, NOTES diabetes, and denies hormonal problems. Hematologic: The patient denies a history of bruising, denies bleeding, and denies anemia, denies blood clots. Infections: The patient denies a history of measles and mumps, denies rheumatic fever, and denies sexually transmitted diseases. Musculoskeletal: The patient denies back pain/injury, denies back problems, denies sciatica, deniesknee/foot trouble, denies arthritis, or denies gout. When was patient's last Mammogram screening? 2021 Last Colonoscopy: 2019 Jessica Ngo RN PHYSICAL EXAMINATION: General: The patient is 66 year old female, well nourished, well hydrated in no acute distress. Thepatient is oriented to time, place, and person. VITALS: Blood pressure 124/72, pulse 67, temperature 36.4 C (97.5 F), SpO2 98 %. There is no heightor weight on file to calculate BMI. HEENT: Normal cephalic, ataumatic, pupils are equally round, sclera are anicteric, mucous membranesare moist, oropharynx is clear. Neck has no masses, asymmetry or lymphadenopathy. Thyroid is unremarkable. Respiratory: Clear to auscultation and percussion. Normal respiratory excursion and pattern. Cardiac: Examination is regular rate and rhythm. Abdominal exam: Soft, nontender, with no palpable masses. No hepatosplenomegaly. No palpable hernias. Rectal exam: exam deferred Extremities: no clubbing, cyanosis or edema. No adenopathy. Breast: Visual inspection reveals no retractions, nipple inversion, or skin changes. Palpation of the right breast reveals no dominant or suspicious masses, but multiple benign-feeling nodules. Palpation of the left breast reveals no dominant or suspicious masses, but multiple benign-feeling nodules. Axillary exam demonstrates no suspicious masses in either the left or right axilla. There is no nipple discharge expressed from either the left or right breast. LABORATORY VALUES: As Noted RADIOLOGIC STUDIES: As Noted Assessment IMPRESSION:Intraductal papilloma of breast, left (primary encounter diagnosis) PLAN: I plan to perform a ultrasound guided wire localization excisional left breast biopsy. The planned surgical procedure was discussed extensively with the patient. The risks, benefits, anticipated outcomes and possible complications were mentioned. My staff has also explained the procedure in understandable terms and the patient was given the option to take printed material concerning the planned procedure. The patient had the opportunity to ask questions concerning the planned procedure. The patient freely consents to the planned procedure. Diagnoses: (D24.2) Intraductal papilloma of breast, left (primary encounter diagnosis) CPT = 83516 placement of breast localization including ultrasound CPT = 10788 needle local excisional breast biopsy My findings have been communicated to Dr. Pedro Jacob MD via shared medical record. This note will be forwarded to Dr. Pedro Jacob MD. Return to Clinic: The patient is instructed to follow-up with me 1 week post operatively. COVID (Procedure Consent) Procedure Criteria Procedure Criteria: Yes Elective The surgeon/proceduralist and patient have discussed in detail therisk of exposure to and/or potential harm posed by the COVID-19 virus with having a surgery/procedure at this time versus the risk of delaying the surgery/procedure. It is not possible to know eitherthe risk of delaying the surgery or procedure or chance of getting an infection with perfect accuracy, but a joint decision was made between the patient and the surgeon/proceduralist to proceed at this time with the scheduled surgery/procedure as indicated on the consent form. Chema Templeton III, MD documented in this encounterSelect [facility] [place]-04-[facility] History of Present illness Narrative* Kayla Graff, RT(R) - 06/19/2022 10:30 AM EDT Radiology Service Progress Note PATIENT NAME: Lisandra Abreu DATE OF SERVICE: June 19, 2022 TIME: 10:09 AM PATIENT IDENTITY VERIFICATION COMPLETED USING TWO (2) IDENTIFIERS: Name and Date of confirmedby patient verbally. FALL SCREENING: Has the patient had 2 falls in the last year or 1 fall with injury or currently using an Ambulatory Assistive Device (Walker, Cane, Wheelchair, Crutches, etc.)? No PATIENT GENDER DATA: Female. status: : No status: NO. PATIENT RELEVANT IMPLANT DATA REVIEWED: Not Applicable RADIOLOGY DEPARTMENT: Mammography PERIPHERAL IV DATA: Not applicable SIGNED BY: RT Daniel(R) June 19, 2022 10:09 AM documented in this encounterSelect Medical [facility] [place]10-04-2022 Instructions* Patient Instructions* Jessica Ngo RN - 06/19/2022 9:51 AM EDT The following instructions are important for you related to your office visit today with the [facility] General Surgeons. Instructions After OFFICE BASED BREAST BIOPSY Please do not take aspirin or other blood thinners for the next few days. After the procedure, Steri-Strips and a dressing will be placed on your small incision. The dressing may be removed in two tothree days after the procedure. The Steri-Strips should be left in place until they fall off. If you have bleeding from the biopsy site, hold pressure with a clean gauze. If the bleeding continues, contact our office immediately. I recommend taking Advil or Tylenol for the discomfort. You should wear a comfortable but somewhat tight fitting bra. If you have significant bruising, an ice packmay improve your discomfort. Please make an appointment to return to our office in 1 week. If you note any additional difficulties, questions, or concerns, you should contact our office immediately @ [phone] and ask to be transferred to the General Surgery department. documented in this encounterSelect [facility] [place]10-04-2022 History of Present illness Narrative* Jessica Ngo RN - 06/19/2022 9:25 AM EDT UNIVERSAL PROTOCOL / SAFETY CHECKLIST Procedure to be Performed: Ultrasound Guided Needle Core Biopsy left breast Sign In: A Moment of CARE was completed. Personnel directly involved with the procedure wore the appropriate PPE (Personal Protective Equipment). Special equipment: Bard max core disposable core biopsy instrumen 14 guage Patient/Surrogate Stated/Verified: PATIENT VERIFIED(optional for EMERGENT procedures): Patient name, Date of , Relevant allergies, and The intended procedure Time Out Communication: Intended patient and procedure match the source documents. Consent documented and matches the intended procedure. Relevant labs, photos, and/or imaging studies have been reviewed. Correct side/site marked and visible. Medications required for procedure verified. No fire risk assessment and interventions applicable. Implant(s) inserted: Correct implant(s) confirmed including size and side., Expiration date(s) reviewed., and Ultra clip breast tissue marker 17 guage Sign Out: SIGN OUT (optional for EMERGENT procedures): All specimen containers correctly labeled. All instruments, equipment, possible retained foreign bodies accounted for. Post-procedure follow-up management communicated and Plan of Care Visit completed when applicable. Jessica Ngo RN * Chema Templeton MD - 06/19/2022 9:24 AM EDT Preoperative diagnosis: Abnormal mammogram the left breast Postoperative diagnosis: The same Procedure: Ultrasound-guided needle core biopsy of abnormal mammogram the left breast Surgeon: Yokasta Procedure: Ultrasound of the left breast revealed the lesion in question at the 4 o'clock position +3 cm from the nipple. Prepped the skin with Betadine. I injected 1% lidocaine plain. I made a skin ana. Under ultrasound guidance I injected local down to the lesion. Under ultrasound guidance I took 2 needle core biopsies of this. Under ultrasound guidance I placed a small titanium clip at the biopsy cavity. Sterile dressings were applied the patient tolerated the procedure well. Postoperative mammogram was ordered. documented in this encounterSelect Medical [facility] [place]09-28-2022 Miscellaneous Notes* Telephone Encounter - Beena Davis RN - 06/13/2022 10:32 AM EDT Faxed to [facility]. Beena Davis RN * Telephone Encounter - Megha Hunter RN - 06/12/2022 3:53 PM EDT [facility] retail pharmacy calling with refill request for patients compounded Clobetasol Rx. Patient lastseen in office on 10/10/21 for annual exam. [facility] compounding Rx form to Lindsey Traylor to sign will fax once completed. Megha Hunter RN documented in this encounterSelect Medical [facility] [place]09-27-2022 History of Present illness Narrative* Chema Templeton MD - 06/12/2022 8:26 AM EDT HISTORY AND PHYSICAL - BREAST COMPLAINT Lisandra Abreu 1955 REFERRING PHYSICIAN: Pedro Jacob MD CHIEF COMPLAINT: Abnormal mammogram (primary encounter diagnosis) HPI: The patient is a 66 year old female with a complaint of an abnormal mammogram. The patient hada mammogram with ultrasound on 06/05/22 which demonstrated left breast leason 4:00 +3: The patient denies a history of breast masses. She does not perform a self breast exam routinely. She notes no skin changes. She denies nipple discharge. She notes no axillary masses. She notes no family history of breast problems. She notes no significant breast trauma or breast difficulties in the past. The patient is being seen by me today at the request of Dr. Pedro Jacob MD for my opinion and advice regarding Abnormal mammogram (primary encounter diagnosis). PAST MEDICAL HISTORY Diagnosis Date Arthritis Diabetes (HCC) Family history of colon cancer Hx of colonic polyps Hypertension ELVER (obstructive sleep apnea) uses cpap. sees Dr. Walters. Snoring TIA (transient ischemic attack) 2014 PAST SURGICAL HISTORY Procedure Laterality Date COLONOSCOPY FLX DX W/COLLJ SPEC WHEN PFRMD 08/25/2015 Colonoscopy COLONOSCOPY FLX DX W/COLLJ SPEC WHEN PFRMD 02/25/2020 Colonoscopy 5 yr interval ESOPHAGOGASTRODUODENOSCOPY TRANSORAL DIAGNOSTIC 02/25/2020 esophagitis, intestinal metaplasia on stomach biopsies. Repeat in 2-3 years HAND SURGERY HX several on both hands HYSTERECTOMY HX with subsequent BSO KIDNEY SURGERY HX 1997 left kidney removed from cancer LEFT HEART CATH,PERCUTANEOUS normal per Dr. Cheema Current Outpatient Medications Medication Sig Dispense Refill atorvastatin (LIPITOR) 80 mg tablet Take 1 tablet by mouth once daily. 90 tablet 1 amLODIPine (NORVASC) 10 mg tablet Take 10 mg by mouth once daily. Going to double check dosage. metFORMIN ER (FORTAMET) 500 mg 24 hr tablet Take 1 tablet by mouth daily with breakfast. May substitute 90 tablet 3 hydroCHLOROthiazide (HYDRODIURIL, ESIDRIX) 25 mg tablet Take 1 tablet by mouth once daily. 90 tablet 1 meloxicam (MOBIC) 15 mg tablet Take 1 tablet by mouth once daily. 90 tablet 1 L. acidophilus-L. rhamnosus 15 billion cell cap Take 1 capsule by mouth once daily. FLORAJEN WOMEN.If on antibiotic, take at least 1-2 hours before or after antibiotic. KEEP REFRIGERATED 30 capsule 11 losartan (COZAAR) 100 mg tablet Take 1 tablet by mouth once daily. 90 tablet 3 atenolol (TENORMIN) 50 mg tablet Take 50 mg by mouth once daily. neomycin/polymyxin B/dexametha ([id number]-[id number] OPHTHALMIC) Use in eyes as needed. Cholecalciferol, Vitamin D3, 50 mcg (2,000 unit) cap Take 50 capsules by mouth. aspirin, enteric coated (ASPIRIN, ENTERIC COATED) 81 mg EC tablet Take 81 mg by mouth once daily. Clobetasol taper - compound [facility] Clobetasol 0.07% ointment. Use to affected area twice daily x 4 weeks then at bedtime x 4 weeks then 1-2 times per week. 1 Tube 2 FOLIC ACID/MULTIVIT-MIN/LUTEIN (CENTRUM SILVER ORAL) Take by mouth once daily. Biotin 10,000 mcg cap Take 5,000 mcg by mouth once daily. KRILL OIL ORAL Take 800 mg by mouth once daily. No current facility-administered medications for this visit. ALLERGIES: Erythromycin, Miroslava Inhibitors, Atenolol, Carvedilol, Corgard [Nadolol], Diltiazem, Metoprolol, Tetracycline Hcl (Bulk), and Verapamil PERSONAL HISTORY: Social History Tobacco Use Smoking status: Former Packs/day: 1.00 Types: Cigarettes Quit date: 12/24/2009 Years since quittin.4 Smokeless tobacco: Never Vaping Use Vaping Use: Former Substance Use Topics Alcohol use: Not Currently Comment: rarely Drug use: No FAMILY HISTORY: FAMILY HISTORY Problem Relation Age of Onset Heart disease Mother Emphysema Mother Colon Cancer Father Heart Father Diabetes Brother other (diverticulitis) Maternal Grandmother Heart Attack Maternal Grandmother No Known Problems Maternal Grandfather Diabetes Paternal Grandmother Heart Attack Paternal Grandfather Stroke Paternal Grandfather REVIEW OF SYMPTOMS: The review of systems data was entered by the nurse and reviewed by me There are no exam notes on file for this visit. PHYSICAL EXAMINATION: General: The patient is 66 year old female, well nourished, well hydrated in no acute distress. Thepatient is oriented to time, place, and person. VITALS: Blood pressure 122/77, pulse 81, temperature 36.3 C (97.4 F), weight 123.3 kg (271 lb 12.8 oz), SpO2 95 %. Body mass index is 44.54 kg/m . HEENT: Normal cephalic, ataumatic, pupils are equally round, sclera are anicteric, mucous membranesare moist, oropharynx is clear. Neck has no masses, asymmetry or lymphadenopathy. Thyroid is unremarkable. Respiratory: Clear to auscultation and percussion. Normal respiratory excursion and pattern. Cardiac: Examination is regular rate and rhythm. Abdominal exam: Soft, nontender, with no palpable masses. No hepatosplenomegaly. No palpable hernias. Rectal exam: exam deferred Extremities: no clubbing, cyanosis or edema. No adenopathy. Breast: Visual inspection reveals no retractions, nipple inversion, or skin changes. Palpation of the right breast reveals no dominant or suspicious masses, but multiple benign-feeling nodules. Palpation of the left breast reveals no dominant or suspicious masses, but multiple benign-feeling nodules. Axillary exam demonstrates no suspicious masses in either the left or right axilla. There is no nipple discharge expressed from either the left or right breast. LABORATORY VALUES: As Noted RADIOLOGIC STUDIES: As Noted Assessment IMPRESSION: Abnormal mammogram (primary encounter diagnosis) PLAN: I plan to perform a ultrasound guided core biopsy of the left breast. The planned surgical procedure was discussed extensively with the patient. The risks, benefits, anticipated outcomes and possible complications were mentioned. My staff has also explained the procedure in understandable terms and the patient was given the option to take printed material concerning the planned procedure. The patient had the opportunity to ask questions concerning the planned procedure. The patient freelyconsents to the planned procedure. Diagnoses: (R92.8) Abnormal mammogram (primary encounter diagnosis) My findings have been communicated to Dr. Pedro Jacob MD via shared medical record. This note will be forwarded to Dr. Pedro Jacob MD. Return to Clinic: The patient is instructed to follow-up with me 1 week post operatively. Chema Templeton III, MD documented in this encounterSelect [facility] [place]09-20-2022 History of Present illness Narrative* RT Kathya(R) - 06/05/2022 10:30 AM EDT Radiology Service Progress Note PATIENT NAME: Lisandra Abreu DATE OF SERVICE: June 05, 2022 TIME: 1:40 PM PATIENT IDENTITY VERIFICATION COMPLETED USING TWO (2) IDENTIFIERS: Name and Date of confirmedby patient verbally. FALL SCREENING: Has the patient had 2 falls in the last year or 1 fall with injury or currently using an Ambulatory Assistive Device (Walker, Cane, Wheelchair, Crutches, etc.)? No PATIENT GENDER DATA: Female. status: : No status: NO. PATIENT RELEVANT IMPLANT DATA REVIEWED: Not Applicable RADIOLOGY DEPARTMENT: Ultrasound PERIPHERAL IV DATA: Not applicable SIGNED BY: RT Kathya(R) June 05, 2022 1:40 PM documented in this encounterSelect Medical [facility] [place]09-20-2022 History of Present illness Narrative* Augusta Smyth Zoomyo Tech - 06/05/2022 10:00 AM EDT Radiology Service Progress Note PATIENT NAME: Lisandra Abreu DATE OF SERVICE: June 05, 2022 TIME: 10:06 AM PATIENT IDENTITY VERIFICATION COMPLETED USING TWO (2) IDENTIFIERS: Name and Date of confirmedby patient verbally. FALL SCREENING: Has the patient had 2 falls in the last year or 1 fall with injury or currently using an Ambulatory Assistive Device (Walker, Cane, Wheelchair, Crutches, etc.)? No PATIENT GENDER DATA: Female. status: : No status: NO. PATIENT RELEVANT IMPLANT DATA REVIEWED: Not Applicable RADIOLOGY DEPARTMENT: Mammography PERIPHERAL IV DATA: Not applicable SIGNED BY: Cecilia Sanchez [employer] June 05, 2022 10:06 AM documented in this encounterSelect Medical [facility] [place]05-05-2022 History of Present illness Narrative* Pedro Jacob MD - 01/18/2022 9:34 AM EDT Patient presents with: 6 Month Exam HPI: Patient presents today for office visit for follow up. Now seeing Dr. Ennis for pulmonary hypertension. Had seen Dr. Cheema. Still treating her sleep apnea. Wants us to look in her right ear. She is wondering if her hearing aid is working right. Can get some discomfort. No drainage or issues with the hearing. Wants to discuss metformin. She started a diet. Is on her eighth week. Eating every other day. Has been taking her sugars frequently. Sometimes is up when fasting. Discussed eating small frequent meals. No chest pain No new shortness of breath. No new edema. bp is well controlled. See previous ov: Seeing Dr. Cheema. Had a stress test and then had a heart cath. No significant ASHD. He is adjusting bp meds. HTN: Patient is compliant with meds Yes Denies side effects: Yes. Chest pain: No. Dyspnea: Is doing better. Was having shortness of breath that prompted cardiac work up. . Edema: No. Palpitations: Rare with exertion. . Syncope: No. Headache: No. Dizziness: No. DM: Reports overall feeling well. Medication side effects: Yes. Home sugar check frequency/results:has been higher than she would like. 138-184 Hypoglycemic spells: No. Last labs were six months ago HYPERLIPIDEMIA: Patient is taking medications: Yes. Patient denies myalgias: Yes. Uses meloxicam for her psoriatic arthritis. Does not see derm currently. Krill oil is working for it. ELVER: sees Dr. Walters. Doing well. Hx of renal cell cancer is over 25 years ago. Has one kidney. No follow up needed other than monitoring kidney function. Sees Dr. Ram. Uses neomycin/polymycin/dexa for recurrent styes and lid issues. MEDICATIONS: Current Outpatient Medications Medication Sig amLODIPine (NORVASC) 10 mg tablet Take 10 mg by mouth once daily. Going to double check dosage. metFORMIN ER (FORTAMET) 500 mg 24 hr tablet Take 1 tablet by mouth daily with breakfast. May substitute hydroCHLOROthiazide (HYDRODIURIL, ESIDRIX) 25 mg tablet Take 1 tablet by mouth once daily. atorvastatin (LIPITOR) 80 mg tablet Take 1 tablet by mouth once daily. meloxicam (MOBIC) 15 mg tablet Take 1 tablet by mouth once daily. L. acidophilus-L. rhamnosus 15 billion cell cap Take 1 capsule by mouth once daily. FLORAJEN WOMEN.If on antibiotic, take at least 1-2 hours before or after antibiotic. KEEP REFRIGERATED losartan (COZAAR) 100 mg tablet Take 1 tablet by mouth once daily. atenolol (TENORMIN) 50 mg tablet Take 50 mg by mouth once daily. Cholecalciferol, Vitamin D3, (VITAMIN D-3) 2,000 unit cap Take 50 capsules by mouth. aspirin, enteric coated (ADULT LOW DOSE ASPIRIN) 81 mg EC tablet Take 81 mg by mouth once daily. Clobetasol taper - compound [facility] Clobetasol 0.07% ointment. Use to affected area twice daily x 4 weeks then at bedtime x 4 weeks then 1-2 times per week. FOLIC ACID/MULTIVIT-MIN/LUTEIN (CENTRUM SILVER ORAL) Take by mouth once daily. Biotin 10,000 mcg cap Take 5,000 mcg by mouth once daily. KRILL OIL ORAL Take 800 mg by mouth once daily. neomycin/polymyxin B/dexametha ([id number] OPHTHALMIC) Use in eyes as needed. TURMERIC ORAL Take by mouth once daily. No current facility-administered medications for this visit. ALLERGIES: ALLERGIES Allergen Reactions Erythromycin Rash Miroslava Inhibitors Cough Atenolol Intolerance Sweating, hard time breathing Carvedilol Intolerance Slight headache, leg cramps, sweating Corgard [Nadolol] Intolerance Heavy chest, sweating, hot flashes Diltiazem Intolerance Dizzy/ heart thumping, heard to breathe Metoprolol Intolerance Chest tight, hot flash/sweat Tetracycline Hcl (B* Hives blisters Verapamil Intolerance Short of breath, fatigue, indigestion, rash PAST MEDICAL HISTORY Diagnosis Date Arthritis Diabetes (HCC) Family history of colon cancer Hx of colonic polyps Hypertension ELVER (obstructive sleep apnea) uses cpap. sees Dr. Walters. Snoring TIA (transient ischemic attack) 2014 PAST SURGICAL HISTORY Procedure Laterality Date COLONOSCOPY FLX DX W/COLLJ SPEC WHEN PFRMD 08/25/2015 Colonoscopy COLONOSCOPY FLX DX W/COLLJ SPEC WHEN PFRMD 02/25/2020 Colonoscopy 5 yr interval ESOPHAGOGASTRODUODENOSCOPY TRANSORAL DIAGNOSTIC 02/25/2020 esophagitis, intestinal metaplasia on stomach biopsies. Repeat in 2-3 years HAND SURGERY HX several on both hands HYSTERECTOMY HX with subsequent BSO KIDNEY SURGERY HX 1997 left kidney removed from cancer LEFT HEART CATH,PERCUTANEOUS normal per Dr. Cheema FAMILY HISTORY Problem Relation Age of Onset Heart disease Mother Emphysema Mother Colon Cancer Father Heart Father Diabetes Brother other (diverticulitis) Maternal Grandmother Heart Attack Maternal Grandmother No Known Problems Maternal Grandfather Diabetes Paternal Grandmother Heart Attack Paternal Grandfather Stroke Paternal Grandfather Social History Tobacco Use Smoking status: Former Smoker Packs/day: 1.00 Types: Cigarettes Quit date: 12/24/2009 Years since quittin.0 Smokeless tobacco: Never Used Vaping Use Vaping Use: Former Substance Use Topics Alcohol use: Not Currently Comment: rarely Drug use: No Reviewed current medications, allergies, past medical history, surgical history, family history andsocial history today. REVIEW OF SYSTEMS GI: Negative for change in bowel habit All other reviewed and negative other than HPI. HEALTH MAINTENANCE: Reviewed health maintenance issues today and recommended the following in detail. DILATED RETINAL EXAM -just had done a month ago. ADVANCE DIRECTIVE DISCUSSION -Discussed advanced planning with patient today. They have a DPOA/Living Will:No Chosen surrogate for decision maker:NA Blank DPOA/Living Will forms given:Yes Reminded patients to have copies of their forms brought into the office to have placed in their medical records. Questions were answered. HBA1C due on 01/17/2022 VITALS: BP 126/72 Pulse 64 Wt 121.1 kg (267 lb) BMI 43.76 kg/m Last 4 Encounter Wt Readings: Date: Wt: 10/10/2021 126.6 kg (279 lb) 07/13/2021 124.3 kg (274 lb) 02/11/2020 123.4 kg (272 lb 0.8 oz) 10/16/2019 123.4 kg (272 lb) PHYSICAL EXAMINATION: General appearance: Well appearing, alert, in no acute distress, well-hydrated, well nourished. Skin: Skin color, texture, turgor normal, no suspicious rashes or lesions Head: Normocephalic, no masses, lesions, tenderness or abnormalities Eyes: Anicteric sclera. Pupils are equally round and reactive to light. Extraocular movements are intact. Ears: External ears normal, canals clear Neck: Supple, no adenopathy; thyroid symmetric, normal size, no bruits Lungs: Lungs clear to auscultation. No wheezing, rhonchi, rales Heart: RRR without murmur, gallop, or rubs. No ectopy Abdomen: Normal abdominal exam, Abdomen soft, non-tender. Bowel sounds normal. No masses, organomegaly Extremities: No deformities, edema, skin discoloration, clubbing or cyanosis. Good capillary refill. Musculoskeletal: No joint swelling, deformity, or tenderness ASSESSMENT/PLAN: 1. Primary hypertension - ICD9: 401.9, ICD10: I10 (primary diagnosis) - good control - Continue current medication(s) - Goal of BP <130/80 2. Psoriatic arthritis (HCC) - ICD9: 696.0, ICD10: L40.50 - stable. 3. ELVER (obstructive sleep apnea) - ICD9: 327.23, ICD10: G47.33 - benefiting from its use 4. TIA (transient ischemic attack) - ICD9: 435.9, ICD10: G45.9 - stalbe 5. Controlled type 2 diabetes mellitus without complication, without long-term current use of insulin (HCC) - ICD9: 250.00, ICD10: E11.9 - HGB A1C 6. History of renal cell cancer - ICD9: V10.52, ICD10: Z85.528 - stable. 7. Pulmonary HTN (HCC) - ICD9: 416.8, ICD10: I27.20 - per pulmonary Pedro Jacob RTO in six months and prn. Medical Decision Making documented in this encounterSelect [facility] [place]03-29-2022 Miscellaneous Notes* Telephone Encounter - Kenny Mckeon LPN - 12/12/2021 4:27 PM EDT Pt notified. She verbalized understanding. Kenny Mckeon LPN * Telephone Encounter - Pedro Jacob MD - 12/12/2021 4:06 PM EDT Does not appear to show any emphysema etc. They said they cannot rule out a pulmonary vascular discorder. sometimes elevated blood pressure in the lung system can cause that. I am thinking that is why she is having her see them. I would keep the appt. If she has any worsening chest pain or shortness of breath or swelling let us know. * Telephone Encounter - Jonelle Beach LPN - 12/12/2021 2:58 PM EDT Patient calling she had seen Renetta Sanchez CREAM DUMPER at [facility] since she was having shortness of breath on exertion. She had PFT done at [facility] on 11/30/2021. Patient said she is not really getting resultsexplained from [facility] office. Patient said she has appt scheduled with Dr Ennis on January 29. Patient asking if PCP could review PFT and tell her results, why she needs to see Pulmonary? Report isscanned in chart under procedure tab dated 12/05/2021. Please advise documented in this encounterSelect Medical [facility]ty [facility] [place]10-28-2021 History of Past illness Narrative* Problem Noted Date Resolved Date Diabetes mellitus type 1, controlled, without co mplications 07/13/2021 07/13/2021 Family history of renal cancer 07/13/2021 1 Overview: Had nephrectomy in 1997. Does not have to follow for it. Triggering of digit 04/16/2018 07/13/2021 Arthritis of wrist 02/20/2017 07/13/2021 documented as of this encounter (statuses as of 12/12/2021) [facility] [place] History of Past illness Narrative* Problem Noted Date Resolved Date Diabetes mellitus type 1, controlled, without co mplications 07/13/2021 07/13/2021 Family history of renal cancer 07/13/2021 1 Overview: Had nephrectomy in 1997. Does not have to follow for it. Triggering of digit 04/16/2018 07/13/2021 Arthritis of wrist 02/20/2017 07/13/2021 documented as of this encounter (statuses as of 01/18/2022) [facility] [place] History of Past illness Narrative* Problem Noted Date Resolved Date Diabetes mellitus type 1, controlled, without co mplications 07/13/2021 07/13/2021 Family history of renal cancer 07/13/2021 1 Overview: Had nephrectomy in 1997. Does not have to follow for it. Triggering of digit 04/16/2018 07/13/2021 Arthritis of wrist 02/20/2017 07/13/2021 documented as of this encounter (statuses as of 04/24/2022) [facility] [place] History of Past illness Narrative* Problem Noted Date Resolved Date Diabetes mellitus type 1, controlled, without co mplications 07/13/2021 07/13/2021 Family history of renal cancer 07/13/2021 1 Overview: Had nephrectomy in 1997. Does not have to follow for it. Triggering of digit 04/16/2018 07/13/2021 Arthritis of wrist 02/20/2017 07/13/2021 documented as of this encounter (statuses as of 06/06/2022) [facility]10-28-2021 History of Past illness Narrative* Problem Noted Date Resolved Date Diabetes mellitus type 1, controlled, without co mplications 07/13/2021 07/13/2021 Family history of renal cancer 07/13/2021 1 Overview: Had nephrectomy in 1997. Does not have to follow for it. Triggering of digit 04/16/2018 07/13/2021 Arthritis of wrist 02/20/2017 07/13/2021 documented as of this encounter (statuses as of 06/06/2022) [facility]10-28-2021 History of Past illness Narrative* Problem Noted Date Resolved Date Diabetes mellitus type 1, controlled, without co mplications 07/13/2021 07/13/2021 Family history of renal cancer 07/13/2021 1 Overview: Had nephrectomy in 1997. Does not have to follow for it. Triggering of digit 04/16/2018 07/13/2021 Arthritis of wrist 02/20/2017 07/13/2021 documented as of this encounter (statuses as of 06/12/2022) [facility]10-28-2021 History of Past illness Narrative* Problem Noted Date Resolved Date Diabetes mellitus type 1, controlled, without co mplications 07/13/2021 07/13/2021 Family history of renal cancer 07/13/2021 1 Overview: Had nephrectomy in 1997. Does not have to follow for it. Triggering of digit 04/16/2018 07/13/2021 Arthritis of wrist 02/20/2017 07/13/2021 documented as of this encounter (statuses as of 06/13/2022) [facility]10-28-2021 History of Past illness Narrative* Problem Noted Date Resolved Date Diabetes mellitus type 1, controlled, without co mplications 07/13/2021 07/13/2021 Family history of renal cancer 07/13/2021 1 Overview: Had nephrectomy in 1997. Does not have to follow for it. Triggering of digit 04/16/2018 07/13/2021 Arthritis of wrist 02/20/2017 07/13/2021 documented as of this encounter (statuses as of 06/19/2022) [facility]10-[facility]-2021 History of Past illness Narrative* Problem Noted Date Resolved Date Diabetes mellitus type 1, controlled, without co mplications 07/13/2021 07/13/2021 Family history of renal cancer 07/13/2021 1 Overview: Had nephrectomy in 1997. Does not have to follow for it. Triggering of digit 04/16/2018 07/13/2021 Arthritis of wrist 02/20/2017 07/13/2021 documented as of this encounter (statuses as of 06/20/2022) [facility]10-[facility]-2021 History of Past illness Narrative* Problem Noted Date Resolved Date Diabetes mellitus type 1, controlled, without co mplications 07/13/2021 07/13/2021 Family history of renal cancer 07/13/2021 1 Overview: Had nephrectomy in 1997. Does not have to follow for it. Triggering of digit 04/16/2018 07/13/2021 Arthritis of wrist 02/20/2017 07/13/2021 documented as of this encounter (statuses as of 06/26/2022) [facility]10-[facility]-2021 History of Past illness Narrative* Problem Noted Date Resolved Date Diabetes mellitus type 1, controlled, without co mplications 07/13/2021 07/13/2021 Family history of renal cancer 07/13/2021 1 Overview: Had nephrectomy in 1997. Does not have to follow for it. Triggering of digit 04/16/2018 07/13/2021 Arthritis of wrist 02/20/2017 07/13/2021 documented as of this encounter (statuses as of 07/05/2022) [facility]2021 History of Past illness Narrative* Problem Noted Date Resolved Date Diabetes mellitus type 1, controlled, without co mplications 07/13/2021 07/13/2021 Family history of renal cancer 07/13/2021 1 Overview: Had nephrectomy in 1997. Does not have to follow for it. Triggering of digit 04/16/2018 07/13/2021 Arthritis of wrist 02/20/2017 07/13/2021 documented as of this encounter (statuses as of 07/09/2022) [facility] Diagnosis Onset Date Resolution Status Essential (primary) hypertension chronic Hyperlipidemia chronic Nonobstructive atherosclerosis of coronary artery chronic Bilateral lower extremity edema acute Dyspnea on exertion acute Essential (primary) hypertension chronic Hyperlipidemia chronic Nonobstructive atherosclerosis of coronary artery chronic [facility] Work Phone: Evaluation note* Diagnosis Primary hypertension- Primary Unspecified essential hypertension Psoriatic arthritis (HCC) Psoriatic arthropathy ELVER (obstructive sleep apnea) Obstructive sleep apnea (adult) (pediatric) TIA (transient ischemic attack) Unspecified transient cerebral ischemia Controlled type 2 diabetes mellitus without complication, without long-term current use of insulin (HCC) History of renal cell cancer Pulmonary HTN (HCC) Other chronic pulmonary heart diseases [facility] Diagnosis Onset Date Resolution Status Bilateral lower extremity edema acute Dyspnea on exertion acute Essential (primary) hypertension chronic Hyperlipidemia chronic Nonobstructive atherosclerosis of coronary artery chronic Bilateral lower extremity edema acute Dyspnea on exertion acute [facility] Work Phone: Evaluation note* Diagnosis Abnormal mammogram Abnormal mammogram, unspecified documented in this encounter [facility] note* Diagnosis Abnormal mammogram Abnormal mammogram, unspecified documented in this encounter [facility] note* Diagnosis Abnormal mammogram- Primary Abnormal mammogram, unspecified documented in this encounter [facility] note* Diagnosis Abnormal mammogram- Primary Abnormal mammogram, unspecified documented in this encounter [facility] note* Diagnosis Abnormal mammogram Abnormal mammogram, unspecified documented in this encounter [facility] note* Diagnosis Intraductal papilloma of breast, left- Primary documented in this encounter [facility] note* Diagnosis Pre-op evaluation- Primary Preoperative examination, unspecified TIA (transient ischemic attack) Unspecified transient cerebral ischemia ELVER (obstructive sleep apnea) Obstructive sleep apnea (adult) (pediatric) HERRON (dyspnea on exertion) Other dyspnea and respiratory abnormality Nonobstructive atherosclerosis of coronary artery Congestive heart failure, unspecified HF chronicity, unspecified heart failure type (HCC) Aortic valve stenosis, etiology of cardiac valve disease unspecified Abnormal finding of blood chemistry, unspecified Controlled type 2 diabetes mellitus without complication, without long-term current use of insulin (HCC) Pulmonary HTN (HCC) Other chronic pulmonary heart diseases Primary hypertension Unspecified essential hypertension Subareolar duct papillomatosis, left [facility] Diagnosis BV (bacterial vaginosis) Vaginitis and vulvovaginitis, unspecified documented in this encounter [facility] note* Diagnosis Atypical ductal hyperplasia of left breast- Primary documented in this encounter [facility] note* Diagnosis Aortic valve stenosis, etiology of cardiac valve disease unspecified- Primary Encounter for immunization Need for other specified prophylactic vaccination against single bacterial disease Primary hypertension Unspecified essential hypertension Pulmonary HTN (HCC) Other chronic pulmonary heart diseases ELVER (obstructive sleep apnea) Obstructive sleep apnea (adult) (pediatric) Controlled type 2 diabetes mellitus without complication, without long-term current use of insulin (HCC) History of renal cell cancer Psoriasis Other psoriasis Psoriatic arthritis (HCC) Psoriatic arthropathy Elevated liver enzymes Other nonspecific abnormal serum enzyme levels CKD (chronic kidney disease) stage 2, GFR 60-89 ml/min Chronic kidney disease, Stage II (mild) [facility] Diagnosis Skin lesion- Primary Unspecified disorder of skin and subcutaneous tissue [facility] Diagnosis Elevated liver enzymes- Primary Other nonspecific abnormal serum enzyme levels [facility] Diagnosis Lichen sclerosus- Primary Circumscribed scleroderma Itching of vulva Pruritus of genital organs [facility] Diagnosis Fatty liver- Primary Other chronic nonalcoholic liver disease [facility]* Diagnosis Fatty liver- Primary Other chronic nonalcoholic liver disease [facility] Diagnosis Fatty liver- Primary Other chronic nonalcoholic liver disease Fatty liver Other chronic nonalcoholic liver disease [facility] Diagnosis Encounter for screening mammogram for breast cancer [facility]* Diagnosis Fatty liver- Primary Other chronic nonalcoholic liver disease Hepatic fibrosis, advanced fibrosis [facility]* Diagnosis Abnormal mammogram- Primary Abnormal mammogram, unspecified [facility]* Diagnosis Controlled type 2 diabetes mellitus without complication, without long-term current use of insulin (HCC)- Primary [facility]* Diagnosis Primary hypertension- Primary Unspecified essential hypertension Pulmonary HTN (HCC) Other chronic pulmonary heart diseases Congestive heart failure, unspecified HF chronicity, unspecified heart failure type (HCC) Hyperlipidemia, unspecified hyperlipidemia type Aortic valve stenosis, etiology of cardiac valve disease unspecified History of renal cell cancer ELVER (obstructive sleep apnea) Obstructive sleep apnea (adult) (pediatric) Psoriatic arthritis (HCC) Psoriatic arthropathy Controlled type 2 diabetes mellitus without complication, without long-term current use of insulin (HCC) [facility] Diagnosis Controlled type 2 diabetes mellitus without complication, without long-term current use of insulin (HCC) [facility]* Diagnosis Intraductal papilloma of breast, left- Primary [facility]* Diagnosis Hepatic steatosis- Primary Other chronic nonalcoholic liver disease Abnormal findings on diagnostic imaging of liver and biliary tract documented in this encounter [facility] note* Diagnosis Encounter for screening mammogram for breast cancer documented in this encounter [facility] note* Diagnosis Fatty liver Other chronic nonalcoholic liver disease documented in this encounter [facility] note* Diagnosis Abnormal mammogram Abnormal mammogram, unspecified [facility]* Diagnosis Primary hypertension- Primary Unspecified essential hypertension Pulmonary HTN (HCC) Other chronic pulmonary heart diseases Congestive heart failure, unspecified HF chronicity, unspecified heart failure type (HCC) Nonobstructive atherosclerosis of coronary artery ELVER (obstructive sleep apnea) Obstructive sleep apnea (adult) (pediatric) Hyperlipidemia, unspecified hyperlipidemia type Controlled type 2 diabetes mellitus without complication, without long-term current use of insulin (HCC) Psoriatic arthritis (HCC) Psoriatic arthropathy TIA (transient ischemic attack) Unspecified transient cerebral ischemia Obesity, Class III, BMI 40-49.9 (morbid obesity) (HCC) Morbid obesity Fatty liver Other chronic nonalcoholic liver disease [facility]* Diagnosis Encounter for screening mammogram for malignant neoplasm of breast- Primary Other screening mammogram [facility]* Diagnosis Hepatic steatosis- Primary Other chronic nonalcoholic liver disease [facility]* Diagnosis Hepatic steatosis Other chronic nonalcoholic liver disease [facility]* Diagnosis Encounter for screening mammogram for malignant neoplasm of breast Other screening mammogram [facility]* Diagnosis Primary hypertension- Primary Unspecified essential hypertension Controlled type 2 diabetes mellitus without complication, without long-term current use of insulin (HCC) Pulmonary HTN (HCC) Other chronic pulmonary heart diseases Nonobstructive atherosclerosis of coronary artery Congestive heart failure, unspecified HF chronicity, unspecified heart failure type (HCC) ELVER (obstructive sleep apnea) Obstructive sleep apnea (adult) (pediatric) History of renal cell cancer Psoriatic arthritis (HCC) Psoriatic arthropathy TIA (transient ischemic attack) Unspecified transient cerebral ischemia Decreased bone density Other disorders of bone and cartilage Fatigue, unspecified type Bruising Contusion of unspecified site [facility]* Diagnosis Hepatic steatosis- Primary Other chronic nonalcoholic liver disease Diabetes mellitus due to underlying condition without complication, 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 (HCC) Abnormal findings on diagnostic imaging of liver and biliary tract documented in this encounter [facility] note* Diagnosis Pre-op evaluation- Primary Preoperative examination, unspecified TIA (transient ischemic attack) Unspecified transient cerebral ischemia ELVER (obstructive sleep apnea) Obstructive sleep apnea (adult) (pediatric) HERRON (dyspnea on exertion) Other dyspnea and respiratory abnormality Nonobstructive atherosclerosis of coronary artery Congestive heart failure, unspecified HF chronicity, unspecified heart failure type (HCC) Aortic valve stenosis, etiology of cardiac valve disease unspecified Abnormal finding of blood chemistry, unspecified Controlled type 2 diabetes mellitus without complication, without long-term current use of insulin (HCC) Pulmonary HTN (HCC) Other chronic pulmonary heart diseases Primary hypertension Unspecified essential hypertension Vaginal irritation- Primary Unspecified noninflammatory disorder of vagina Intertrigo of genital labia Lichen sclerosus Circumscribed scleroderma documented in this encounter [facility] note* Diagnosis Pre-op evaluation- Primary Preoperative examination, unspecified TIA (transient ischemic attack) Unspecified transient cerebral ischemia ELVER (obstructive sleep apnea) Obstructive sleep apnea (adult) (pediatric) HERRON (dyspnea on exertion) Other dyspnea and respiratory abnormality Nonobstructive atherosclerosis of coronary artery Congestive heart failure, unspecified HF chronicity, unspecified heart failure type (HCC) Aortic valve stenosis, etiology of cardiac valve disease unspecified Abnormal finding of blood chemistry, unspecified Controlled type 2 diabetes mellitus without complication, without long-term current use of insulin (HCC) Pulmonary HTN (HCC) Other chronic pulmonary heart diseases Primary hypertension Unspecified essential hypertension Hepatic steatosis Other chronic nonalcoholic liver disease [facility]* Diagnosis Pre-op evaluation- Primary Preoperative examination, unspecified TIA (transient ischemic attack) Unspecified transient cerebral ischemia ELVER (obstructive sleep apnea) Obstructive sleep apnea (adult) (pediatric) HERRON (dyspnea on exertion) Other dyspnea and respiratory abnormality Nonobstructive atherosclerosis of coronary artery Congestive heart failure, unspecified HF chronicity, unspecified heart failure type (HCC) Aortic valve stenosis, etiology of cardiac valve disease unspecified Abnormal finding of blood chemistry, unspecified Controlled type 2 diabetes mellitus without complication, without long-term current use of insulin (HCC) Pulmonary HTN (HCC) Other chronic pulmonary heart diseases Primary hypertension Unspecified essential hypertension Hepatic fibrosis, advanced fibrosis- Primary Diabetes mellitus due to underlying condition without complication, without long-term current use of insulin (HCC) [facility]* Diagnosis Pre-op evaluation- Primary Preoperative examination, unspecified TIA (transient ischemic attack) Unspecified transient cerebral ischemia ELVER (obstructive sleep apnea) Obstructive sleep apnea (adult) (pediatric) HERRON (dyspnea on exertion) Other dyspnea and respiratory abnormality Nonobstructive atherosclerosis of coronary artery Congestive heart failure, unspecified HF chronicity, unspecified heart failure type (HCC) Aortic valve stenosis, etiology of cardiac valve disease unspecified Abnormal finding of blood chemistry, unspecified Controlled type 2 diabetes mellitus without complication, without long-term current use of insulin (HCC) Pulmonary HTN (HCC) Other chronic pulmonary heart diseases Primary hypertension Unspecified essential hypertension Chronic vulvitis- Primary Vaginitis and vulvovaginitis, unspecified Postmenopausal atrophic vaginitis Lichen sclerosus Circumscribed scleroderma [facility]* Diagnosis Pre-op evaluation- Primary Preoperative examination, unspecified TIA (transient ischemic attack) Unspecified transient cerebral ischemia ELVER (obstructive sleep apnea) Obstructive sleep apnea (adult) (pediatric) HERRON (dyspnea on exertion) Other dyspnea and respiratory abnormality Nonobstructive atherosclerosis of coronary artery Congestive heart failure, unspecified HF chronicity, unspecified heart failure type (HCC) Aortic valve stenosis, etiology of cardiac valve disease unspecified Abnormal finding of blood chemistry, unspecified Controlled type 2 diabetes mellitus without complication, without long-term current use of insulin (HCC) Pulmonary HTN (HCC) Other chronic pulmonary heart diseases Primary hypertension Unspecified essential hypertension Primary hypertension- Primary Unspecified essential hypertension Controlled type 2 diabetes mellitus without complication, without long-term current use of insulin (HCC) Nonobstructive atherosclerosis of coronary artery Pulmonary HTN (HCC) Other chronic pulmonary heart diseases Hyperlipidemia, unspecified hyperlipidemia type ELVER (obstructive sleep apnea) Obstructive sleep apnea (adult) (pediatric) History of renal cell cancer Psoriatic arthritis (HCC) Psoriatic arthropathy TIA (transient ischemic attack) Unspecified transient cerebral ischemia Family history of colon cancer Family history of malignant neoplasm of gastrointestinal tract Metabolic dysfunction-associated steatotic liver disease (MASLD) Encounter for screening mammogram for malignant neoplasm of breast Other screening [facility]ogram [facility]- Primary Preoperative examination, unspecified TIA (transient ischemic attack) Unspecified transient cerebral ischemia ELVER (obstructive sleep apnea) Obstructive sleep apnea (adult) (pediatric) HERRON (dyspnea on exertion) Other dyspnea and respiratory abnormality Nonobstructive atherosclerosis of coronary artery Congestive heart failure, unspecified HF chronicity, unspecified heart failure type (HCC) Aortic valve stenosis, etiology of cardiac valve disease unspecified Abnormal finding of blood chemistry, unspecified Controlled type 2 diabetes mellitus without complication, without long-term current use of insulin (HCC) Pulmonary HTN (HCC) Other chronic pulmonary heart diseases Primary hypertension Unspecified essential hypertension Itching of vulva Pruritus of genital organs [facility]* Diagnosis Pre-op evaluation- Primary Preoperative examination, unspecified TIA (transient ischemic attack) Unspecified transient cerebral ischemia ELVER (obstructive sleep apnea) Obstructive sleep apnea (adult) (pediatric) HERRON (dyspnea on exertion) Other dyspnea and respiratory abnormality Nonobstructive atherosclerosis of coronary artery Congestive heart failure, unspecified HF chronicity, unspecified heart failure type (HCC) Aortic valve stenosis, etiology of cardiac valve disease unspecified Abnormal finding of blood chemistry, unspecified Controlled type 2 diabetes mellitus without complication, without long-term current use of insulin (HCC) Pulmonary HTN (HCC) Other chronic pulmonary heart diseases Primary hypertension Unspecified essential hypertension Abnormal mammogram- Primary Abnormal mammogram, unspecified [facility]* Diagnosis Pre-op evaluation- Primary Preoperative examination, unspecified TIA (transient ischemic attack) Unspecified transient cerebral ischemia ELVER (obstructive sleep apnea) Obstructive sleep apnea (adult) (pediatric) HERRON (dyspnea on exertion) Other dyspnea and respiratory abnormality Nonobstructive atherosclerosis of coronary artery Congestive heart failure, unspecified HF chronicity, unspecified heart failure type (HCC) Aortic valve stenosis, etiology of cardiac valve disease unspecified Abnormal finding of blood chemistry, unspecified Controlled type 2 diabetes mellitus without complication, without long-term current use of insulin (HCC) Pulmonary HTN (HCC) Other chronic pulmonary heart diseases Primary hypertension Unspecified essential hypertension Abnormal mammogram Abnormal mammogram, unspecified documented in this encounter [facility] note* Diagnosis Pre-op evaluation- Primary Preoperative examination, unspecified TIA (transient ischemic attack) Unspecified transient cerebral ischemia ELVER (obstructive sleep apnea) Obstructive sleep apnea (adult) (pediatric) HERRON (dyspnea on exertion) Other dyspnea and respiratory abnormality Nonobstructive atherosclerosis of coronary artery Congestive heart failure, unspecified HF chronicity, unspecified heart failure type (HCC) Aortic valve stenosis, etiology of cardiac valve disease unspecified Abnormal finding of blood chemistry, unspecified Controlled type 2 diabetes mellitus without complication, without long-term current use of insulin (HCC) Pulmonary HTN (HCC) Other chronic pulmonary heart diseases Primary hypertension Unspecified essential hypertension Abnormal mammogram Abnormal mammogram, unspecified documented in this encounter [facility] note* Diagnosis Pre-op evaluation- Primary Preoperative examination, unspecified TIA (transient ischemic attack) Unspecified transient cerebral ischemia ELVER (obstructive sleep apnea) Obstructive sleep apnea (adult) (pediatric) HERRON (dyspnea on exertion) Other dyspnea and respiratory abnormality Nonobstructive atherosclerosis of coronary artery Congestive heart failure, unspecified HF chronicity, unspecified heart failure type (HCC) Aortic valve stenosis, etiology of cardiac valve disease unspecified Abnormal finding of blood chemistry, unspecified Controlled type 2 diabetes mellitus without complication, without long-term current use of insulin (HCC) Pulmonary HTN (HCC) Other chronic pulmonary heart diseases Primary hypertension Unspecified essential hypertension Abnormal mammogram- Primary Abnormal mammogram, unspecified documented in this encounter [facility] note* Diagnosis Pre-op evaluation- Primary Preoperative examination, unspecified TIA (transient ischemic attack) Unspecified transient cerebral ischemia ELVER (obstructive sleep apnea) Obstructive sleep apnea (adult) (pediatric) HERRON (dyspnea on exertion) Other dyspnea and respiratory abnormality Nonobstructive atherosclerosis of coronary artery Congestive heart failure, unspecified HF chronicity, unspecified heart failure type (HCC) Aortic valve stenosis, etiology of cardiac valve disease unspecified Abnormal finding of blood chemistry, unspecified Controlled type 2 diabetes mellitus without complication, without long-term current use of insulin (HCC) Pulmonary HTN (HCC) Other chronic pulmonary heart diseases Primary hypertension Unspecified essential hypertension Medicare annual wellness visit, subsequent- Primary Routine general medical examination at a health care facility Encounter for screening examination for other mental health and behavioral disorders Morbid (severe) obesity due to excess calories (HCC) Psoriatic arthritis (HCC) Psoriatic arthropathy Congestive heart failure, unspecified HF chronicity, unspecified heart failure type (HCC) Obesity, Class III, BMI >= 40 Morbid obesity Primary hypertension Unspecified essential hypertension Pulmonary HTN (HCC) Other chronic pulmonary heart diseases Hyperlipidemia, unspecified hyperlipidemia type ELVER (obstructive sleep apnea) Obstructive sleep apnea (adult) (pediatric) Metabolic dysfunction-associated steatotic liver disease (MASLD) Controlled type 2 diabetes mellitus without complication, without long-term current use of insulin (HCC) SOB (shortness of breath) Shortness of breath Screening for depression History of colonic polyps Personal history of colonic polyps Family history of colon cancer Family history of malignant neoplasm of gastrointestinal tract Abnormal stool caliber Abnormal feces Encounter for immunization Need for other specified prophylactic vaccination against single bacterial disease documented in this encounter [facility]* Diagnosis Pre-op evaluation- Primary Preoperative examination, unspecified TIA (transient ischemic attack) Unspecified transient cerebral ischemia ELVER (obstructive sleep apnea) Obstructive sleep apnea (adult) (pediatric) HERRON (dyspnea on exertion) Other dyspnea and respiratory abnormality Nonobstructive atherosclerosis of coronary artery Congestive heart failure, unspecified HF chronicity, unspecified heart failure type (HCC) Aortic valve stenosis, etiology of cardiac valve disease unspecified Abnormal finding of blood chemistry, unspecified Controlled type 2 diabetes mellitus without complication, without long-term current use of insulin (HCC) Pulmonary HTN (HCC) Other chronic pulmonary heart diseases Primary hypertension Unspecified essential hypertension SOB (shortness of breath) Shortness of breath documented in this encounter [facility] note* Diagnosis Pre-op evaluation- Primary Preoperative examination, unspecified TIA (transient ischemic attack) Unspecified transient cerebral ischemia ELVER (obstructive sleep apnea) Obstructive sleep apnea (adult) (pediatric) HERRON (dyspnea on exertion) Other dyspnea and respiratory abnormality Nonobstructive atherosclerosis of coronary artery Congestive heart failure, unspecified HF chronicity, unspecified heart failure type (HCC) Aortic valve stenosis, etiology of cardiac valve disease unspecified Abnormal finding of blood chemistry, unspecified Controlled type 2 diabetes mellitus without complication, without long-term current use of insulin (HCC) Pulmonary HTN (HCC) Other chronic pulmonary heart diseases Primary hypertension Unspecified essential hypertension Dysphagia, unspecified type- Primary History of colonic polyps Personal history of colonic polyps Family history of colon cancer Family history of malignant neoplasm of gastrointestinal tract Abnormal stool caliber Abnormal feces Bloating Flatulence, eructation, and gas pain Belching Flatulence, eructation, and gas pain Screen for colon cancer Special screening for malignant neoplasms, colon documented in this encounter [facility]* Diagnosis Pre-op evaluation- Primary Preoperative examination, unspecified TIA (transient ischemic attack) Unspecified transient cerebral ischemia ELVER (obstructive sleep apnea) Obstructive sleep apnea (adult) (pediatric) HERRON (dyspnea on exertion) Other dyspnea and respiratory abnormality Nonobstructive atherosclerosis of coronary artery Congestive heart failure, unspecified HF chronicity, unspecified heart failure type (HCC) Aortic valve stenosis, etiology of cardiac valve disease unspecified Abnormal finding of blood chemistry, unspecified Controlled type 2 diabetes mellitus without complication, without long-term current use of insulin (HCC) Pulmonary HTN (HCC) Other chronic pulmonary heart diseases Primary hypertension Unspecified essential hypertension Abnormal mammogram Abnormal mammogram, unspecified [facility] noteNo assessment information availableWSelect [facility] [place] Work Phone: Evaluation note* Diagnosis Pre-op evaluation- Primary Preoperative examination, unspecified TIA (transient ischemic attack) Unspecified transient cerebral ischemia ELVER (obstructive sleep apnea) Obstructive sleep apnea (adult) (pediatric) HERRON (dyspnea on exertion) Other dyspnea and respiratory abnormality Nonobstructive atherosclerosis of coronary artery Congestive heart failure, unspecified HF chronicity, unspecified heart failure type (HCC) Aortic valve stenosis, etiology of cardiac valve disease unspecified Abnormal finding of blood chemistry, unspecified Controlled type 2 diabetes mellitus without complication, without long-term current use of insulin (HCC) Pulmonary HTN (HCC) Other chronic pulmonary heart diseases Primary hypertension Unspecified essential hypertension Abnormal mammogram- Primary Abnormal mammogram, unspecified documented in this encounter [facility] for referral (narrative)* Diagnostic Procedure Only (Routine) - Closed Specialty Diagnoses / Procedures Referred By Keegan gonzalez Referred To Contact [facility] Diagnoses Abnormal mammogram Procedures NIC DIAGNOSTIC LT DIAGNOSTIC MAMMOGRAPHY COMPUTER-AIDED DETCJ Pedro Davis MD [address] [place] [address] [facility] [address] [place] [phone] Referral ID Status Reason Start Date Expiration Date V isits Requested Visits Authorized [id number] Closed Auto-Generate d Referral 11/10/2021 12/10/2022 1 1 [facility] for referral (narrative)* Diagnostic Procedure Only (Routine) - Closed Specialty Diagnoses / Procedures Referred By Keegan gonzalez Referred To Contact [facility] Diagnoses Abnormal mammogram Procedures US BREAST LTD LT US BREAST UNI REAL TIME WITH IMAGE LIMITED Pedro Jacob MD [address] [place] [address] [facility] [address] [place] [address] Referral ID Status Reason Start Date Expiration Date V isits Requested Visits Authorized [id number] Closed Auto-Generate d Referral 11/21/2021 12/21/2022 1 1 [facility] for referral (narrative)* Diagnostic Procedure Only (Routine) - Closed Specialty Diagnoses / Procedures Referred By Contac t Referred To Contact [facility] Diagnoses Abnormal mammogram Procedures NIC DIAGNOSTIC LT DIAGNOSTIC MAMMOGRAPHY COMPUTER-AIDED DET Chema Stack MD [address] [facility] [place] [address] [facility] [address] [place] [address] Referral ID Status Reason Start Date Expiration Date V isits Requested Visits Authorized [id number] Closed Auto-Generate d Referral 06/19/2022 07/19/2023 1 1 [facility] for referral (narrative)* Diagnostic Procedure Only (Routine) - Closed Specialty Diagnoses / Procedures Referred By Contac t Referred To Contact [facility] Diagnoses Abnormal mammogram Procedures NIC DIAGNOSTIC LT DIAGNOSTIC MAMMOGRAPHY COMPUTER-AIDED DETChema Nicholson MD [address] [place] [address] [facility] [address] [place] [address] Referral ID Status Reason Start Date Expiration Date V isits Requested Visits Authorized [id number] Closed Auto-Generate d Referral 06/19/2022 07/19/2023 1 1 [facility] for referral (narrative)* Outpatient Procedure (Routine) - Closed Specialty Diagnoses / Procedures Referred By Contac t Referred To Contact [facility] Diagnoses Fatty liver Procedures DDI VIBRATION CONTROLLED TRANSIENT ELASTOGRAPHY (VCTE) LIVER ELASTOGRAPHY W/O IMAG W/I&R Olga Valdovinos APRN.BEHAVIORAL CONSULTANT [address] [place] [address] [facility] [place] [address] [place] [address] Referral ID Status Reason Start Date Expiration Date V isits Requested Visits Authorized [id number] Closed Auto-Generate d Referral 11/02/2022 11/02/2023 1 1 [facility] for referral (narrative)* Diagnostic Procedure Only (Routine) - Authorized Specialty Diagnoses / Procedures Referred By Keegan t Referred To Contact [facility] Diagnoses Encounter for screening mammogram for breast cancer Procedures NIC SCREENING W NICOLE SCREENING DIGITAL BREAST TOMOSYNTHESIS BI SCREENING MAMMOGRAPHY BI 2-VIEW BREAST INC Pedro Stephens MD [address] [place] [address] [facility] [address] [place] [address] Referral ID Status Reason Start Date Expiration Date Visits Requested Visits Authorized [id number] Authorized Auto-Generat ed Referral 12/12/2022 01/11/2024 1 1 T [facility] for referral (narrative)* Diagnostic Procedure Only (Routine) - Pending Review Specialty Diagnoses / Procedures Referred By Keegan gonzalez Referred To Contact [facility] Diagnoses Fatty liver Procedures US ABD RIGHT UPPER QUADRANT US ABDOMINAL REAL TIME W/IMAGE LIMITED Olga Valdovinos APRN.BEHAVIORAL CONSULTANT [address] [place] [address] [facility] Referral ID Status Reason Start Date Expiration Date Visits Requested Visits Authorized [id number] Pending Review Auto-Generat ed Referral 06/21/2023 01/19/2024 1 1 [facility] for referral (narrative)* Diagnostic Procedure Only (Routine) - Authorized Specialty Diagnoses / Procedures Referred By Contac t Referred To Contact [facility] Diagnoses Abnormal mammogram Procedures US BREAST LTD RIGHT US BREAST UNI REAL TIME WITH IMAGE LIMITED Pedro Jacob MD [address] [place] [address] [facility] [address] [place] [address] Referral ID Status Reason Start Date Expiration Date Visits Requested Visits Authorized [id number] Authorized Auto-Generat ed Referral 12/27/2022 01/26/2024 1 1 * Diagnostic Procedure Only (Routine) - Authorized Specialty Diagnoses / Procedures [facility] To [facility] Diagnoses Abnormal mammogram Procedures NIC DIAGNOSTIC RIGHT DIAGNOSTIC MAMMOGRAPHY COMPUTER-AIDED DETCJ UNI Pedro Jacob MD [address] [place] [address] [facility] [address] [place] [address] Referral ID Status Reason Start Date Expiration Date Visits Requested Visits Authorized [id number] Authorized Auto-Generat ed Referral 12/27/2022 01/26/2024 1 1 [facility] for referral (narrative)* Diagnostic Procedure Only (Routine) - Closed Specialty Diagnoses / Procedures [facility] Referred To Contact [facility] Diagnoses Intraductal papilloma of breast, left Procedures NIC NDL LOC W NIC GD LT PERQ DEVICE PLACEMENT BREAST LOC 1ST LES W/GDNCE Chema Templeton MD [address] [place] [address] [facility] [address] [place] [address] Referral ID Status Reason Start Date Expiration Date V isits Requested Visits Authorized [id number] Closed Auto-Generate d Referral 07/11/2022 08/01/2023 1 1 [facility] for referral (narrative)* Diagnostic Procedure Only (Routine) - Authorized Specialty Diagnoses / Procedures [facility] Diagnoses Hepatic steatosis Procedures US ABD RIGHT UPPER QUADRANT US ABDOMINAL REAL TIME W/IMAGE LIMITED Olga Valdovinos APRN.BEHAVIORAL CONSULTANT [address] [place] [address] Us Imaging [place] [address] Referral ID Status Reason Start Date Expiration Date Visits Requested Visits Authorized [id number] Authorized Auto-Generat ed Referral 12/21/2023 07/20/2024 1 1 * Diagnostic Procedure Only (Routine) - Pending Review Specialty Diagnoses / Procedures Referred By Contac t Referred To Contact [facility] Diagnoses Hepatic steatosis Procedures US ABD RIGHT UPPER QUADRANT US ABDOMINAL REAL TIME W/IMAGE LIMITED Olga Valdovinos APRN.CNP [address] [place] [id number] [facility] [place] [address] Referral ID Status Reason Start Date Expiration Date Visits Requested Visits Authorized [id number] Pending Review Auto-Generat ed Referral 06/21/2023 07/20/2024 1 1 * Outpatient Procedure (Routine) - Authorized Specialty Diagnoses / Procedures Referred By Contac t Referred To Contact [facility] Diagnoses Hepatic steatosis Procedures DDI VIBRATION CONTROLLED TRANSIENT ELASTOGRAPHY (VCTE) LIVER ELASTOGRAPHY W/O IMAG W/I&R Olga Valdovinos APRN.CNP [address] [facility] [place] [id number] [facility] [place] [address] [place] [address] Referral ID Status Reason Start Date Expiration Date Visits Requested Visits Authorized [id number] Authorized Auto-Generat ed Referral 12/21/2023 06/21/2024 1 1 [facility] for referral (narrative)* Diagnostic Procedure Only (Routine) - Closed Specialty Diagnoses / Procedures Referred By Contac t Referred To Contact [facility] Diagnoses Encounter for screening mammogram for breast cancer Procedures NIC SCREENING W NICOLE SCREENING DIGITAL BREAST TOMOSYNTHESIS BI SCREENING MAMMOGRAPHY BI 2-VIEW BREAST INC CAD Pedro Jacob MD [address] [place] [address] [facility] [address] [place] [address] Referral ID Status Reason Start Date Expiration Date V isits Requested Visits Authorized [id number] Closed Auto-Generate d Referral 12/12/2022 01/11/2024 1 1 [facility] for referral (narrative)* Diagnostic Procedure Only (Routine) - Closed Specialty Diagnoses / Procedures Referred By Contac t Referred To Contact [facility] Diagnoses Fatty liver Procedures US ABD RIGHT UPPER QUADRANT US ABDOMINAL REAL TIME W/IMAGE LIMITED Olga Valdovinos APRN.CNP [address] [place] [address] Us Imaging [facility] Referral ID Status Reason Start Date Expiration Date V isits Requested Visits Authorized [id number] Closed Auto-Generate d Referral 06/21/2023 01/19/2024 1 1 [facility] for referral (narrative)* Diagnostic Procedure Only (Routine) - Closed Specialty Diagnoses / Procedures Referred By Contac t Referred To Contact [facility] Diagnoses Abnormal mammogram Procedures US BREAST LTD RIGHT US BREAST UNI REAL TIME WITH IMAGE LIMITED Pedro Jacob MD [address] [place] [address] [facility] [address] [place] [address] Referral ID Status Reason Start Date Expiration Date V isits Requested Visits Authorized [id number] Closed Auto-Generate d Referral 12/27/2022 01/26/2024 1 1 [facility] for referral (narrative)* Diagnostic Procedure Only (Routine) - Authorized Specialty Diagnoses / Procedures Referred By Contac t Referred To Contact [facility] Diagnoses Encounter for screening mammogram for malignant neoplasm of breast Procedures NIC SCREENING W NICOLE SCREENING DIGITAL BREAST TOMOSYNTHESIS BI SCREENING MAMMOGRAPHY BI 2-VIEW BREAST INC CAD Pedro Jacob MD [address] [place] [address] [facility] Imaging [address] [place] [phone] Referral ID Status Reason Start Date Expiration Date Visits Requested Visits Authorized [id number] Authorized Auto-Generat ed Referral 12/06/2023 01/04/2025 1 1 [facility] for referral (narrative)* Outpatient Procedure (Routine) - Pending Review Specialty Diagnoses / Procedures Referred By Contac t Referred To Contact [facility] Diagnoses Hepatic steatosis Procedures DDI VIBRATION CONTROLLED TRANSIENT ELASTOGRAPHY (VCTE) LIVER ELASTOGRAPHY W/O IMAG W/I&R Thalia Mckeon APRN.BEHAVIORAL CONSULTANT [address] [place] [address] [facility] [place] [address] [place] [address] Referral ID Status Reason Start Date Expiration Date Visits Requested Visits Authorized [id number] Pending Review Auto-Generat ed Referral 12/26/2023 12/25/2024 1 1 [facility] for referral (narrative)* Diagnostic Procedure Only (Routine) - Closed Specialty Diagnoses / Procedures Referred By Paulac t Referred To Contact [facility] Diagnoses Hepatic steatosis Procedures US ABD RIGHT UPPER QUADRANT US ABDOMINAL REAL TIME W/IMAGE LIMITED Olga Valdovinos APRN.BEHAVIORAL CONSULTANT [address] [place] [address] Us Imaging [facility]95 Referral ID Status Reason Start Date Expiration Date V isits Requested Visits Authorized [id number] Closed Auto-Generate d Referral 12/21/2023 07/20/2024 1 1 [facility] for referral (narrative)* Diagnostic Procedure Only (Routine) - Authorized Specialty Diagnoses / Procedures Referred By Contac t Referred To Contact [facility] Diagnoses Hepatic steatosis Procedures US ABD RIGHT UPPER QUADRANT US ABDOMINAL REAL TIME W/IMAGE LIMITED Olga Valdovinos APRN.CNP [address] [place] [phone] [facility] [place] [address] Referral ID Status Reason Start Date Expiration Date Visits Requested Visits Authorized [id number] Authorized Auto-Generat ed Referral 01/24/2025 1 1 * Consult, Test, Treat (Routine) - Authorized Specialty Diagnoses / Procedures Referred By Contac t Referred To Contact [facility] Diagnoses Hepatic steatosis Diabetes mellitus due to underlying condition without complication, unspecified whether chcf insulin use (HCC) Procedures CONSULT TO NUTRITION THERAPY MEDICAL NUTRITION ASSMT&IVNTJ INDIV EACH 15 MD Olga Valdovinos APRN.CNP [address] [place] [address] Referral ID Status Reason Start Date Expiration Date Visits Requested Visits Authorized [id number] Authorized PCP Requested Referral 12/26/2023 12/25/2024 1 4 [facility] for referral (narrative)* Diagnostic Procedure Only (Routine) - Closed Specialty Diagnoses / Procedures [facility] Referred To Contact [facility] Diagnoses Hepatic steatosis Procedures US ABD RIGHT UPPER QUADRANT US ABDOMINAL REAL TIME W/IMAGE LIMITED Olga Valdovinos APRN.CNP [address] [place] [phone] [facility] [place] [address] Referral ID Status Reason Start Date Expiration Date V isits Requested Visits Authorized [id number] Closed Auto-Generate d Referral 06/26/2024 01/24/2025 1 1 [facility] for referral (narrative)* Diagnostic Procedure Only (Routine) - Authorized Specialty Diagnoses / Procedures Referred By Contac t Referred To Contact [facility] Diagnoses Encounter for screening mammogram for malignant neoplasm of breast Procedures NIC SCREENING SCREENING MAMMOGRAPHY BI 2-VIEW BREAST INC CAD Pedro Jacob MD [address] [place] [address] [facility] [address] [place] [address] Referral ID Status Reason Start Date Expiration Date Visits Requested Visits Authorized [id number] Authorized Auto-Generat ed Referral 08/19/2024 2025 1 1 [facility] for referral (narrative)No reason for referral information availableWSelect [facility] [place] Work Phone: Reason for visit Narrative* Diagnostic Procedure Only (Routine) - Closed Specialty Diagnoses / Procedures Referred By Contac t Referred To Contact [facility] Diagnoses Abnormal mammogram Procedures NIC DIAGNOSTIC LT DIAGNOSTIC MAMMOGRAPHY COMPUTER-AIDED DETCJ Pedro Davis MD [address] [place] [address] [facility] [address] [place] [address] Referral ID Status Reason Start Date Expiration Date V isits Requested Visits Authorized [id number] Closed Auto-Generate d Referral 11/10/2021 12/10/2022 1 1 [facility] for visit Narrative* Diagnostic Procedure Only (Routine) - Closed Specialty Diagnoses / Procedures Referred By Contac t Referred To Contact [facility] Diagnoses Abnormal mammogram Procedures NIC DIAGNOSTIC LT DIAGNOSTIC MAMMOGRAPHY COMPUTER-AIDED DETCJ Chema Stack MD [address] [place] [address] [facility] [address] [place] [address] Referral ID Status Reason Start Date Expiration Date V isits Requested Visits Authorized [id number] Closed Auto-Generate d Referral 06/19/2022 07/19/2023 1 1 [facility] for visit Narrative* Diagnostic Procedure Only (Routine) - Closed Specialty Diagnoses / Procedures Referred By Contac t Referred To Contact [facility] Diagnoses Encounter for screening mammogram for breast cancer Procedures NCI SCREENING W NICOLE SCREENING DIGITAL BREAST TOMOSYNTHESIS BI SCREENING MAMMOGRAPHY BI 2-VIEW BREAST INC CAD Pedro Jacob MD [address] [place] [address] [facility] Imaging [address] [place] [phone] Referral ID Status Reason Start Date Expiration Date V isits Requested Visits Authorized [id number] Closed Auto-Generate d Referral 12/12/2022 01/11/2024 1 1 [facility] for visit Narrative* Outpatient Procedure (Routine) - Closed Specialty Diagnoses / Procedures Referred By Contac t Referred To Contact [facility] Diagnoses Hepatic steatosis Procedures DDI VIBRATION CONTROLLED TRANSIENT ELASTOGRAPHY (VCTE) LIVER ELASTOGRAPHY W/O IMAG W/I&R Olga Valdovinos, HIGHWAY TECHNICIAN.BEHAVIORAL CONSULTANT [address] [place] [address] [facility] [place] [address] [place] [address] Referral ID Status Reason Start Date Expiration Date V isits Requested Visits Authorized [id number] Closed Auto-Generate d Referral 12/21/2023 06/21/2024 1 1 [facility] for visit Narrative* Diagnostic Procedure Only (Routine) - Closed Specialty Diagnoses / Procedures Referred By Contac t Referred To Contact [facility] Diagnoses Hepatic steatosis Procedures US ABD RIGHT UPPER QUADRANT US ABDOMINAL REAL TIME W/IMAGE LIMITED Olga Valdovinos, HIGHWAY TECHNICIAN.BEHAVIORAL CONSULTANT [address] [place] [address] [place] [address] Referral ID Status Reason Start Date Expiration Date V isits Requested Visits Authorized [id number] Closed Auto-Generate d Referral 12/21/2023 07/20/2024 1 1 [facility] for visit Narrative* Diagnostic Procedure Only (Routine) - Closed Specialty Diagnoses / Procedures Referred By Contac t Referred To Contact [facility] Diagnoses Encounter for screening mammogram for malignant neoplasm of breast Procedures NIC SCREENING W NICOLE SCREENING DIGITAL BREAST TOMOSYNTHESIS BI SCREENING MAMMOGRAPHY BI 2-VIEW BREAST INC CAD Pedro Jacob MD [address] [place] [address] [facility] Imaging [address] [place] [address] Referral ID Status Reason Start Date Expiration Date V isits Requested Visits Authorized [id number] Closed Auto-Generate d Referral 12/06/2023 01/04/2025 1 1 [facility] for visit Narrative* Diagnostic Procedure Only (Routine) - Closed Specialty Diagnoses / Procedures Referred By Contac t Referred To Contact [facility] Diagnoses Hepatic steatosis Procedures US ABD RIGHT UPPER QUADRANT US ABDOMINAL REAL TIME W/IMAGE LIMITED Olga Valdovinos, HIGHWAY TECHNICIAN.BEHAVIORAL CONSULTANT [address] [id number] [facility] [place] [address] Referral ID Status Reason Start Date Expiration Date V isits Requested Visits Authorized [id number] Closed Auto-Generate d Referral 06/26/2024 01/24/2025 1 1 [facility] for visit Narrative* Diagnostic Procedure Only (Routine) - Closed Specialty Diagnoses / Procedures Referred By Contac t Referred To Contact [facility] Diagnoses Abnormal mammogram Procedures US BREAST LTD RIGHT US BREAST UNI REAL TIME WITH IMAGE LIMITED Pedro Jacob MD [address] [place] [id number] Phone: tel: fax: [facility] [address] [place] [address] Referral ID Status Reason Start Date Expiration Date V isits Requested Visits Authorized [id number] Closed Auto-Generate d Referral 01/11/2025 02/10/2026 1 1 [facility] for visit Narrative* Diagnostic Procedure Only (Routine) - Closed Specialty Diagnoses / Procedures Referred By Contac t Referred To Contact [facility] Diagnoses Abnormal mammogram Procedures NIC DIAGNOSTIC RIGHT DIAGNOSTIC MAMMOGRAPHY COMPUTER-AIDED DETCJ UNI Pedro Jacob MD [address] [place] [id number] Phone: tel: fax: [facility] [address] [place] [address] Referral ID Status Reason Start Date Expiration Date V isits Requested Visits Authorized [id number] Closed Auto-Generate d Referral 01/11/2025 02/10/2026 1 1 [facility] for visit Narrative* Diagnostic Procedure Only (Routine) - Closed Specialty Diagnoses / Procedures Referred By Contac t Referred To Contact [facility] Diagnoses Abnormal mammogram Procedures US BIOPSY BREAST RIGHT BX BREAST W/DEVICE 1ST LESION ULTRASOUND GUID Chema Templeton MD [address] [place] [address] Phone: tel: fax: [facility] [address] [place] [address] Referral ID Status Reason Start Date Expiration Date V isits Requested Visits Authorized [id number] Closed Auto-Generate d Referral 02/23/2025 03/25/2026 1 1 [facility] Chief Complaint and Reason for Visit Chief Complaint 3 M FU 3 M FU DYSPNEA DYSPNEA Reason for Visit Essential (primary) hypertension Hyperlipidemia Nonobstructive atherosclerosis of coronary artery Bilateral lower extremity edema Dyspnea on exertion Essential (primary) hypertension Hyperlipidemia Nonobstructive atherosclerosis of coronary artery Chief Complaint 3 M FU DYSPNEA DYSPNEA Dyspnea DYSPNEA Reason for Visit Bilateral lower extr emity edema Dyspnea on exertion Essential (primary) hypertension Hyperlipidemia Nonobstructive atherosclerosis of coronary artery Bilateral lower extremity edema Dyspnea on exertion Chief Complaint 3 M FU DYSPNEA DYSPNEA Dyspnea DYSPNEA DYSPENA DYSPENA Reason for Visit Bilateral lower extr emity edema Dyspnea on exertion Essential (primary) hypertension Hyperlipidemia Nonobstructive atherosclerosis of coronary artery Bilateral lower extremity edema Dyspnea on exertion Chief Complaint Admit Date BLE SWELLING March 22, 2025 1:50p m Amb Documentation March 22, 2025 3:54p m Family History No Family History Records Found Relationship Condition Age at Onset Recorded Date/T puja mother Myocardial infarction 63 father Myocardial infarction 52 brother Cardiac disease Unknown Diabetes mellitus Unknown Relationship Condition Age at Onset Recorded Date/T puja mother Myocardial infarction 63 History of blood clots Unknown Cardiac disease Unknown Pulmonary emphysema Unknown father Myocardial infarction 52 Hypertension Unknown Diabetes mellitus Unknown Malignant neoplasm Unknown brother Cardiac disease Unknown Advance Directives No Advanced Directives Records Found Advance Directive Response Recorded Date/ Time Advance Directives No March 13 8:29am Living Will No March 13, 2021 8:29am Power of Grants Analyst No March 13 8:29am Documents on File Type Date Recorded 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 Expl anation Advance Directive(s) 02/25/2020 9:59 AM Advance Directive(s) 02/16/2020 3:18 PM Advance Directive Response Recorded Date/ Time Advance Directives No March 13 8:29am Reason for Referral Specialty Diagnoses / Procedures Referred By Contac t Referred To Contact Gastroenterology Diagnoses Elevated liver enzymes Procedures CONSULT TO GASTROENTEROLOGY OFFICE/OUTPATIENT NEW HIGH MDM 60-74 MINUTES Pedro Jacob MD [address] [place] [address] Referral ID Status Reason Start Date Expiration Date Visits Requested Visits Authorized [id number] Authorized PCP Requested Referral 08/17/2022 08/17/2023 1 1 Specialty Diagnoses / Procedures Referred By Contac t Referred To Contact Nutrition Diagnoses Hepatic fibrosis, 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, without long-term current use of insulin (HCC) Procedures CONSULT TO NUTRITION THERAPY MEDICAL NUTRITION ASSMT&IVNTJ INDIV EACH 15 MD Olga Valdovinos APRN.BEHAVIORAL CONSULTANT [address] [id number] Referral ID Status Reason Start Date Expiration Date Visits Requested Visits Authorized [id number] Authorized PCP Requested Referral 07/02/2025 1 4 Specialty Diagnoses / Procedures Referred By Contac t Referred To Contact [facility] Diagnoses Hepatic fibrosis, advanced fibrosis Procedures US ABD RIGHT UPPER QUADRANT US ABDOMINAL REAL TIME W/IMAGE LIMITED Olga Valdovinos APRN.BEHAVIORAL CONSULTANT [address] [place] [address] [facility] [place] [address] Referral ID Status Reason Start Date Expiration Date Visits Requested Visits Authorized [id number] New Request Auto-Generat ed Referral 12/31/2024 08/01/2025 1 1 Specialty Diagnoses / Procedures Referred By Contac t Referred To Contact Pedro Jacob MD [address] [place] [address] Referral ID Status Reason Start Date Expiration Date Visits Re quested Visits Authorized [id number] Closed 1 1 Summary Purpose Additional Source Comments Goals (unrecognized section and content) Goals may be documented in a n alternate sectionGoals may be documented in an alternate sectionGoals may be documented in an alternate sectionGoals may be documented in an alternate sectionGoals may be documented in an alternate section Source Comments (unrecognize d section and content) In the event this informatio n is protected by the Federal Confidentiality of Alcohol and Drug Abuse Patient Records regulations: The Federal rules restrict any use of the information to criminally investigate or prosecute any alcohol or drug abuse patient.[facility] [place] the event this information is protected by the Federal Confidentiality of Alcohol and Drug Abuse Patient Records regulations: The Federal rules restrict any use of the information to criminally investigate or prosecute any alcohol or drug abuse patient.[facility] [place] the event this information is protected by the Federal Confidentiality of Alcohol and Drug Abuse Patient Records regulations: The Federal rules restrict any use of the information to criminally investigate or prosecute any alcohol or drug abuse patient.[facility] [place] the event this information is protected by the Federal Confidentiality of Alcohol and Drug Abuse Patient Records regulations: The Federal rules restrict any use of the information to criminally investigate or prosecute any alcohol or drug abuse patient.[facility] [place] the event this information is protected by the Federal Confidentiality of Alcohol and Drug Abuse Patient Records regulations: The Federal rules restrict any use of the information to criminally investigate or prosecute any alcohol or drug abuse patient.[facility] [place] the event this information is protected by the Federal Confidentiality of Alcohol and Drug Abuse Patient Records regulations: The Federal rules restrict any use of the information to criminally investigate or prosecute any alcohol or drug abuse patient.[facility] [place] the event this information is protected by the Federal Confidentiality of Alcohol and Drug Abuse Patient Records regulations: The Federal rules restrict any use of the information to criminally investigate or prosecute any alcohol or drug abuse patient.[facility] [place] the event this information is protected by the Federal Confidentiality of Alcohol and Drug Abuse Patient Records regulations: The Federal rules restrict any use of the information to criminally investigate or prosecute any alcohol or drug abuse patient.[facility] [place] the event this information is protected by the Federal Confidentiality of Alcohol and Drug Abuse Patient Records regulations: The Federal rules restrict any use of the information to criminally investigate or prosecute any alcohol or drug abuse patient.[facility] [place] the event this information is protected by the Federal Confidentiality of Alcohol and Drug Abuse Patient Records regulations: The Federal rules restrict any use of the information to criminally investigate or prosecute any alcohol or drug abuse patient.[facility] [place] the event this information is protected by the Federal Confidentiality of Alcohol and Drug Abuse Patient Records regulations: The Federal rules restrict any use of the information to criminally investigate or prosecute any alcohol or drug abuse patient.[facility] [place] the event this information is protected by the Federal Confidentiality of Alcohol and Drug Abuse Patient Records regulations: The Federal rules restrict any use of the information to criminally investigate or prosecute any alcohol or drug abuse patient.[facility] [place]In the event this information is protected by the Federal Confidentiality of Alcohol and Drug Abuse Patient Records regulations: The Federal rules restrict any use of the information to criminally investigate or prosecute any alcohol or drug abuse patient.[facility] [place]In the event this information is protected by the Federal Confidentiality of Alcohol and Drug Abuse Patient Records regulations: The Federal rules restrict any use of the information to criminally investigate or prosecute any alcohol or drug abuse patient.[facility] [place] the event this information is protected by the Federal Confidentiality of Alcohol and Drug Abuse Patient Records regulations: The Federal rules restrict any use of the information to criminally investigate or prosecute any alcohol or drug abuse patient.[facility] [place] the event this information is protected by the Federal Confidentiality of Alcohol and Drug Abuse Patient Records regulations: The Federal rules restrict any use of the information to criminally investigate or prosecute any alcohol or drug abuse patient.[facility] [place] the event this information is protected by the Federal Confidentiality of Alcohol and Drug Abuse Patient Records regulations: The Federal rules restrict any use of the information to criminally investigate or prosecute any alcohol or drug abuse patient.[facility] [place]In the event this information is protected by the Federal Confidentiality of Alcohol and Drug Abuse Patient Records regulations: The Federal rules restrict any use of the information to criminally investigate or prosecute any alcohol or drug abuse patient.[facility] [place]In the event this information is protected by the Federal Confidentiality of Alcohol and Drug Abuse Patient Records regulations: The Federal rules restrict any use of the information to criminally investigate or prosecute any alcohol or drug abuse patient.[facility] [place]In the event this information is protected by the Federal Confidentiality of Alcohol and Drug Abuse Patient Records regulations: The Federal rules restrict any use of the information to criminally investigate or prosecute any alcohol or drug abuse patient.[facility] [place]In the event this information is protected by the Federal Confidentiality of Alcohol and Drug Abuse Patient Records regulations: The Federal rules restrict any use of the information to criminally investigate or prosecute any alcohol or drug abuse patient.[facility] [place]In the event this information is protected by the Federal Confidentiality of Alcohol and Drug Abuse Patient Records regulations: The Federal rules restrict any use of the information to criminally investigate or prosecute any alcohol or drug abuse patient.[facility] [place]In the event this information is protected by the Federal Confidentiality of Alcohol and Drug Abuse Patient Records regulations: The Federal rules restrict any use of the information to criminally investigate or prosecute any alcohol or drug abuse patient.[facility] [place]In the event this information is protected by the Federal Confidentiality of Alcohol and Drug Abuse Patient Records regulations: The Federal rules restrict any use of the information to criminally investigate or prosecute any alcohol or drug abuse patient.[facility] [place]In the event this information is protected by the Federal Confidentiality of Alcohol and Drug Abuse Patient Records regulations: The Federal rules restrict any use of the information to criminally investigate or prosecute any alcohol or drug abuse patient.[facility] [place]In the event this information is protected by the Federal Confidentiality of Alcohol and Drug Abuse Patient Records regulations: The Federal rules restrict any use of the information to criminally investigate or prosecute any alcohol or drug abuse patient.[facility] [place]In the event this information is protected by the Federal Confidentiality of Alcohol and Drug Abuse Patient Records regulations: The Federal rules restrict any use of the information to criminally investigate or prosecute any alcohol or drug abuse patient.[facility] [place]In the event this information is protected by the Federal Confidentiality of Alcohol and Drug Abuse Patient Records regulations: The Federal rules restrict any use of the information to criminally investigate or prosecute any alcohol or drug abuse patient.[facility] [place]In the event this information is protected by the Federal Confidentiality of Alcohol and Drug Abuse Patient Records regulations: The Federal rules restrict any use of the information to criminally investigate or prosecute any alcohol or drug abuse patient.[facility] [place]In the event this information is protected by the Federal Confidentiality of Alcohol and Drug Abuse Patient Records regulations: The Federal rules restrict any use of the information to criminally investigate or prosecute any alcohol or drug abuse patient.[facility] [place]In the event this information is protected by the Federal Confidentiality of Alcohol and Drug Abuse Patient Records regulations: The Federal rules restrict any use of the information to criminally investigate or prosecute any alcohol or drug abuse patient.[facility] [place]In the event this information is protected by the Federal Confidentiality of Alcohol and Drug Abuse Patient Records regulations: The Federal rules restrict any use of the information to criminally investigate or prosecute any alcohol or drug abuse patient.[facility] [place]In the event this information is protected by the Federal Confidentiality of Alcohol and Drug Abuse Patient Records regulations: The Federal rules restrict any use of the information to criminally investigate or prosecute any alcohol or drug abuse patient.[facility] [place]In the event this information is protected by the Federal Confidentiality of Alcohol and Drug Abuse Patient Records regulations: The Federal rules restrict any use of the information to criminally investigate or prosecute any alcohol or drug abuse patient.[facility] [place]In the event this information is protected by the Federal Confidentiality of Alcohol and Drug Abuse Patient Records regulations: The Federal rules restrict any use of the information to criminally investigate or prosecute any alcohol or drug abuse patient.[facility] [place]In the event this information is protected by the Federal Confidentiality of Alcohol and Drug Abuse Patient Records regulations: The Federal rules restrict any use of the information to criminally investigate or prosecute any alcohol or drug abuse patient.[facility] [place]In the event this information is protected by the Federal Confidentiality of Alcohol and Drug Abuse Patient Records regulations: The Federal rules restrict any use of the information to criminally investigate or prosecute any alcohol or drug abuse patient.[facility] [place]In the event this information is protected by the Federal Confidentiality of Alcohol and Drug Abuse Patient Records regulations: The Federal rules restrict any use of the information to criminally investigate or prosecute any alcohol or drug abuse patient.[facility] [place]In the event this information is protected by the Federal Confidentiality of Alcohol and Drug Abuse Patient Records regulations: The Federal rules restrict any use of the information to criminally investigate or prosecute any alcohol or drug abuse patient.[facility] [place]In the event this information is protected by the Federal Confidentiality of Alcohol and Drug Abuse Patient Records regulations: The Federal rules restrict any use of the information to criminally investigate or prosecute any alcohol or drug abuse patient.[facility] [place]In the event this information is protected by the Federal Confidentiality of Alcohol and Drug Abuse Patient Records regulations: The Federal rules restrict any use of the information to criminally investigate or prosecute any alcohol or drug abuse patient.[facility] [place]In the event this information is protected by the Federal Confidentiality of Alcohol and Drug Abuse Patient Records regulations: The Federal rules restrict any use of the information to criminally investigate or prosecute any alcohol or drug abuse patient.[facility] [place]In the event this information is protected by the Federal Confidentiality of Alcohol and Drug Abuse Patient Records regulations: The Federal rules restrict any use of the information to criminally investigate or prosecute any alcohol or drug abuse patient.[facility] [place]In the event this information is protected by the Federal Confidentiality of Alcohol and Drug Abuse Patient Records regulations: The Federal rules restrict any use of the information to criminally investigate or prosecute any alcohol or drug abuse patient.[facility] [place]In the event this information is protected by the Federal Confidentiality of Alcohol and Drug Abuse Patient Records regulations: The Federal rules restrict any use of the information to criminally investigate or prosecute any alcohol or drug abuse patient.[facility] [place]In the event this information is protected by the Federal Confidentiality of Alcohol and Drug Abuse Patient Records regulations: The Federal rules restrict any use of the information to criminally investigate or prosecute any alcohol or drug abuse patient.[facility] [place]In the event this information is protected by the Federal Confidentiality of Alcohol and Drug Abuse Patient Records regulations: The Federal rules restrict any use of the information to criminally investigate or prosecute any alcohol or drug abuse patient.[facility] [place]In the event this information is protected by the Federal Confidentiality of Alcohol and Drug Abuse Patient Records regulations: The Federal rules restrict any use of the information to criminally investigate or prosecute any alcohol or drug abuse patient.[facility] [place]In the event this information is protected by the Federal Confidentiality of Alcohol and Drug Abuse Patient Records regulations: The Federal rules restrict any use of the information to criminally investigate or prosecute any alcohol or drug abuse patient.[facility] [place]In the event this information is protected by the Federal Confidentiality of Alcohol and Drug Abuse Patient Records regulations: The Federal rules restrict any use of the information to criminally investigate or prosecute any alcohol or drug abuse patient.[facility] [place]In the event this information is protected by the Federal Confidentiality of Alcohol and Drug Abuse Patient Records regulations: The Federal rules restrict any use of the information to criminally investigate or prosecute any alcohol or drug abuse patient.[facility] [place]In the event this information is protected by the Federal Confidentiality of Alcohol and Drug Abuse Patient Records regulations: The Federal rules restrict any use of the information to criminally investigate or prosecute any alcohol or drug abuse patient.[facility] [place]In the event this information is protected by the Federal Confidentiality of Alcohol and Drug Abuse Patient Records regulations: The Federal rules restrict any use of the information to criminally investigate or prosecute any alcohol or drug abuse patient.[facility] [place]In the event this information is protected by the Federal Confidentiality of Alcohol and Drug Abuse Patient Records regulations: The Federal rules restrict any use of the information to criminally investigate or prosecute any alcohol or drug abuse patient.[facility] [place]In the event this information is protected by the Federal Confidentiality of Alcohol and Drug Abuse Patient Records regulations: The Federal rules restrict any use of the information to criminally investigate or prosecute any alcohol or drug abuse patient.[facility] [place]In the event this information is protected by the Federal Confidentiality of Alcohol and Drug Abuse Patient Records regulations: The Federal rules restrict any use of the information to criminally investigate or prosecute any alcohol or drug abuse patient.[facility] [place]In the event this information is protected by the Federal Confidentiality of Alcohol and Drug Abuse Patient Records regulations: The Federal rules restrict any use of the information to criminally investigate or prosecute any alcohol or drug abuse patient.[facility] [place]In the event this information is protected by the Federal Confidentiality of Alcohol and Drug Abuse Patient Records regulations: The Federal rules restrict any use of the information to criminally investigate or prosecute any alcohol or drug abuse patient.[facility] [place]In the event this information is protected by the Federal Confidentiality of Alcohol and Drug Abuse Patient Records regulations: The Federal rules restrict any use of the information to criminally investigate or prosecute any alcohol or drug abuse patient.[facility] [place]In the event this information is protected by the Federal Confidentiality of Alcohol and Drug Abuse Patient Records regulations: The Federal rules restrict any use of the information to criminally investigate or prosecute any alcohol or drug abuse patient.[facility] [place]In the event this information is protected by the Federal Confidentiality of Alcohol and Drug Abuse Patient Records regulations: The Federal rules restrict any use of the information to criminally investigate or prosecute any alcohol or drug abuse patient.[facility] [place]In the event this information is protected by the Federal Confidentiality of Alcohol and Drug Abuse Patient Records regulations: The Federal rules restrict any use of the information to criminally investigate or prosecute any alcohol or drug abuse patient.[facility] [place]In the event this information is protected by the Federal Confidentiality of Alcohol and Drug Abuse Patient Records regulations: The Federal rules restrict any use of the information to criminally investigate or prosecute any alcohol or drug abuse patient.[facility] [place]In the event this information is protected by the Federal Confidentiality of Alcohol and Drug Abuse Patient Records regulations: The Federal rules restrict any use of the information to criminally investigate or prosecute any alcohol or drug abuse patient.[facility] [place]In the event this information is protected by the Federal Confidentiality of Alcohol and Drug Abuse Patient Records regulations: The Federal rules restrict any use of the information to criminally investigate or prosecute any alcohol or drug abuse patient.[facility] [place]In the event this information is protected by the Federal Confidentiality of Alcohol and Drug Abuse Patient Records regulations: The Federal rules restrict any use of the information to criminally investigate or prosecute any alcohol or drug abuse patient.[facility] [place]In the event this information is protected by the Federal Confidentiality of Alcohol and Drug Abuse Patient Records regulations: The Federal rules restrict any use of the information to criminally investigate or prosecute any alcohol or drug abuse patient.[facility] [place]In the event this information is protected by the Federal Confidentiality of Alcohol and Drug Abuse Patient Records regulations: The Federal rules restrict any use of the information to criminally investigate or prosecute any alcohol or drug abuse patient.[facility] [place]In the event this information is protected by the Federal Confidentiality of Alcohol and Drug Abuse Patient Records regulations: The Federal rules restrict any use of the information to criminally investigate or prosecute any alcohol or drug abuse patient.[facility] [place]In the event this information is protected by the Federal Confidentiality of Alcohol and Drug Abuse Patient Records regulations: The Federal rules restrict any use of the information to criminally investigate or prosecute any alcohol or drug abuse patient.[facility] [place]In the event this information is protected by the Federal Confidentiality of Alcohol and Drug Abuse Patient Records regulations: The Federal rules restrict any use of the information to criminally investigate or prosecute any alcohol or drug abuse patient.[facility] [place]In the event this information is protected by the Federal Confidentiality of Alcohol and Drug Abuse Patient Records regulations: The Federal rules restrict any use of the information to criminally investigate or prosecute any alcohol or drug abuse patient.[facility] [place]In the event this information is protected by the Federal Confidentiality of Alcohol and Drug Abuse Patient Records regulations: The Federal rules restrict any use of the information to criminally investigate or prosecute any alcohol or drug abuse patient.[facility] [place]In the event this information is protected by the Federal Confidentiality of Alcohol and Drug Abuse Patient Records regulations: The Federal rules restrict any use of the information to criminally investigate or prosecute any alcohol or drug abuse patient.[facility] [place]In the event this information is protected by the Federal Confidentiality of Alcohol and Drug Abuse Patient Records regulations: The Federal rules restrict any use of the information to criminally investigate or prosecute any alcohol or drug abuse patient.[facility] [place]In the event this information is protected by the Federal Confidentiality of Alcohol and Drug Abuse Patient Records regulations: The Federal rules restrict any use of the information to criminally investigate or prosecute any alcohol or drug abuse patient.[facility] [place]In the event this information is protected by the Federal Confidentiality of Alcohol and Drug Abuse Patient Records regulations: The Federal rules restrict any use of the information to criminally investigate or prosecute any alcohol or drug abuse patient.[facility] [place]In the event this information is protected by the Federal Confidentiality of Alcohol and Drug Abuse Patient Records regulations: The Federal rules restrict any use of the information to criminally investigate or prosecute any alcohol or drug abuse patient.[facility] [place]In the event this information is protected by the Federal Confidentiality of Alcohol and Drug Abuse Patient Records regulations: The Federal rules restrict any use of the information to criminally investigate or prosecute any alcohol or drug abuse patient.[facility] [place]In the event this information is protected by the Federal Confidentiality of Alcohol and Drug Abuse Patient Records regulations: The Federal rules restrict any use of the information to criminally investigate or prosecute any alcohol or drug abuse patient.[facility] [place]In the event this information is protected by the Federal Confidentiality of Alcohol and Drug Abuse Patient Records regulations: The Federal rules restrict any use of the information to criminally investigate or prosecute any alcohol or drug abuse patient.[facility] [place]In the event this information is protected by the Federal Confidentiality of Alcohol and Drug Abuse Patient Records regulations: The Federal rules restrict any use of the information to criminally investigate or prosecute any alcohol or drug abuse patient.[facility] [place]In the event this information is protected by the Federal Confidentiality of Alcohol and Drug Abuse Patient Records regulations: The Federal rules restrict any use of the information to criminally investigate or prosecute any alcohol or drug abuse patient.[facility] [place]In the event this information is protected by the Federal Confidentiality of Alcohol and Drug Abuse Patient Records regulations: The Federal rules restrict any use of the information to criminally investigate or prosecute any alcohol or drug abuse patient.[facility] [place]In the event this information is protected by the Federal Confidentiality of Alcohol and Drug Abuse Patient Records regulations: The Federal rules restrict any use of the information to criminally investigate or prosecute any alcohol or drug abuse patient.[facility] [place]In the event this information is protected by the Federal Confidentiality of Alcohol and Drug Abuse Patient Records regulations: The Federal rules restrict any use of the information to criminally investigate or prosecute any alcohol or drug abuse patient.[facility] [place]In the event this information is protected by the Federal Confidentiality of Alcohol and Drug Abuse Patient Records regulations: The Federal rules restrict any use of the information to criminally investigate or prosecute any alcohol or drug abuse patient.[facility] [place]In the event this information is protected by the Federal Confidentiality of Alcohol and Drug Abuse Patient Records regulations: The Federal rules restrict any use of the information to criminally investigate or prosecute any alcohol or drug abuse patient.[facility] [place]In the event this information is protected by the Federal Confidentiality of Alcohol and Drug Abuse Patient Records regulations: The Federal rules restrict any use of the information to criminally investigate or prosecute any alcohol or drug abuse patient.[facility] [place]In the event this information is protected by the Federal Confidentiality of Alcohol and Drug Abuse Patient Records regulations: The Federal rules restrict any use of the information to criminally investigate or prosecute any alcohol or drug abuse patient.[facility] [place] Reason for Visit (unrecogniz ed section and content) Reason Comments Radiology US Specialty Diagnoses / Procedures Referred By Contac t Referred To Contact [facility] IM[facility] Diagnoses Abnormal mammogram Procedures US BREAST LTD RIGHT US BREAST UNI REAL TIME WITH IMAGE LIMITED Pedro Jacob MD [facility] [place] [id number] [facility] [address] [place] [address] Referral ID Status Reason Start Date Expiration Date V isits Requested Visits Authorized [id number] Closed Auto-Generate d Referral 12/27/2022 01/26/2024 1 1 Specialty Diagnoses / Procedures Referred By Contac t Referred To Contact US IMAGING Diagnoses Fatty liver Procedures US ABD RIGHT UPPER QUADRANT US ABDOMINAL REAL TIME W/IMAGE LIMITED Olga Valdovinos APRN.BEHAVIORAL CONSULTANT [address] [place] [address] Us Imaging [facility] Referral ID Status Reason Start Date Expiration Date V isits Requested Visits Authorized [id number] Closed Auto-Generate d Referral 06/21/2023 01/19/2024 1 1 Reason Comments Patient Question Reason Comments 6 Month Exam Specialty Diagnoses / Procedures Referred By Contac t Referred To Contact [facility] Diagnoses Abnormal mammogram Procedures US BREAST LTD LT US BREAST UNI REAL TIME WITH IMAGE LIMITED Pedro Jacob MD [address] [place] [address] [facility] [address] [place] [address] Referral ID Status Reason Start Date Expiration Date V isits Requested Visits Authorized [id number] Closed Auto-Generate d Referral 11/21/2021 12/21/2022 1 1 Reason Comments Follow Up 6 month follow up ab normal mammogram Reason Onset Date Comments Refill Request 06/12/2022 Reason Comments Procedure Us left breast biops y Reason Comments Follow Up Ultrasound guided ne edle core biopsy left breast Reason Comments Anesthesia Consult Reason Comments Results Reason Onset Date Comments Refill Request 07/17/2022 Reason Comments Post Op Follow Up Reason Comments Patient Question Pathology Reason Comments Derm Problem Shave excision bilat eral arms Reason Comments Results Reason Comments Appointment Called to Cancel stacie t Reason Comments Appointment Reason Comments Coldfusion - Other I called Dr Chaka devi's office and let them know that Dr Schmidt recommends Lisandra see GI Specialist. Reason Comments Follow Up Lichen Sclerosis Reason Onset Date Comments Refill Request 10/28/2022 Reason Comments Liver Disease Reason Comments New Patient Elevated Liver Enzym es Reason Comments Radiology Pre Procedure Instructions Reason Onset Date Comments Refill Request 11/25/2022 Specialty Diagnoses / Procedures Referred By Contac t Referred To Contact Diagnoses Fatty liver Procedures TRANSVASCULAR BIOPSY S&I TRANSCATHETER BIOPSY [facility] [address] [place] [address] Referral ID Status Reason Start Date Expiration Date Visits Re quested Visits Authorized [id number] 1 1 Reason Comments Orders Reason Comments Non Alcoholic Fatty Liver Disease Reason Onset Date Comments Refill Request 12/26/2022 Reason Comments Results Reason Onset Date Comments Refill Request 01/21/2023 Reason Comments 07-11-22 L / BREAST PRADO Reason Onset Date Comments Refill Request 04/23/2023 Reason Comments Established Patient Follow-Up Liver stea tosis Reason Onset Date Comments Refill Request 08/01/2023 Reason Onset Date Comments Refill Request 01/27/2024 Reason Comments Established Patient Hepatic Steatosis Reason Onset Date Comments Refill Request 04/26/2024 Reason Comments lichen sclerosus Reason Comments Established Patient Hepatic steatosis [K 76.0] Reason Onset Date Comments Refill Request 07/16/2024 Reason Comments Follow Up Reason Comments 6 Month Exam Reason Onset Date Comments Refill Request 10/12/2024 Reason Onset Date Comments Refill Request 10/12/2024 Reason Onset Date Comments Refill Request 01/03/2025 Reason Comments Consult Reason Comments Medicare Wellness Exam Reason Comments Cancer Surveillance Colonoscopy screenin g Specialty Diagnoses / Procedures Referred By Keegan gonzalez Referred To Contact General Surgery Diagnoses History of colonic polyps Family history of colon cancer Abnormal stool caliber Procedures CONSULT TO GENERAL SURGERY OFFICE/OUTPATIENT NEW HIGH MDM 60 MINUTES Pedro Jacob MD [address] [place] [address] Phone: tel: fax: Referral ID Status Reason Start Date Expiration Date V isits Requested Visits Authorized [id number] Closed PCP Requested Referral 03/03/2025 03/03/2026 1 1 Reason Comments Follow Up Breast bx done in IR 03/17/2025 Care Teams (unrecognized sec tion and content) [employer] Relationship Specialty Start Date End Date Pedro Jacob MD [address] [place], [place] [address] PCP - General Family Practice 07/13/21 Electric [employer] Relationship Specialty Start Date End Date Pedro Jacob MD [address] [place] [id number] PCP - General Family Practice 07/13/21 Electric [employer] Relationship Specialty Start Date End Date Pedro Jacob MD [address] [place] [id number] PCP - General Family Practice 07/13/21 Electric Motor As[employer]er [employer] Tester Relationship Specialty Start Date End Date Pedro Jacob MD [address] [place] [address] PCP - General Family Medicine 07/13/21 Electric Motor As[employer]er [employer] Tester Relationship Specialty Start Date End Date Pedro Jacob MD [address] [place] [address] PCP - General Family Medicine 07/13/21 Electric Motor Assembler And Tester Relationship Specialty Start Date End Date Pedro Jacob MD [facility] [place], [place] [id number] PCP - General Family Medicine 07/13/21 Electric Motor As[employer]er [employer] Tester Relationship Specialty Start Date End Date Pedro Jacob MD [address] [facility] [address] PCP - General Family Medicine 07/13/21 Electric Motor Assembler And Tester Relationship Specialty Start Date End Date Pedro Jacob MD [address] [facility] [address] PCP - General Family Medicine 07/13/21 Electric Motor Assembler [employer] Tester Relationship Specialty Start Date End Date Pedro Jacob MD [address] [facility] [address] PCP - General Family Medicine 07/13/21 Electric Motor As[employer]er [employer] Tester Relationship Specialty Start Date End Date Pedro Jacob MD [address] [facility] [address] PCP - General Family Medicine 07/13/21 Electric Motor Assembler And Tester Relationship Specialty Start Date End Date Pedro Jacob MD [address] [facility] [address] PCP - General Family Medicine 07/13/21 Electric Motor Assembler And Tester Relationship Specialty Start Date End Date Pedro Jacob MD [address] [facility] [place] [address] PCP - General Family Medicine 07/13/21 Electric Motor Assembler And Tester Relationship Specialty Start Date End Date Pedro Jacob MD [address] [facility] [place] [address] PCP - General Family Medicine 07/13/21 Electric Motor Assembler [employer] Tester Relationship Specialty Start Date End Date Pedro Jacob MD [address] [facility] [place] [address] PCP - General Family Medicine 07/13/21 Electric Motor Assembler And Tester Relationship Specialty Start Date End Date Pedro Jacob MD [address] [facility] [place] [address] PCP - General Family Medicine 07/13/21 Electric Motor Assembler And Tester Relationship Specialty Start Date End Date Pedro Jacob MD [address] [facility] [place] [address] PCP - General Family Medicine 07/13/21 Electric Motor Assembler [employer] Tester Relationship Specialty Start Date End Date Pedro Jacob MD [address] [facility] [place] [address] PCP - General Family Medicine 07/13/21 Electric Motor Assembler And Tester Relationship Specialty Start Date End Date Pedro Jacob MD [address] [facility] [place] [address] PCP - General Family Medicine 07/13/21 Electric Motor Assembler And Tester Relationship Specialty Start Date End Date Pedro Jacob MD [address] [facility] [place] [address] PCP - General Family Medicine 07/13/21 Electric Motor Assembler And Tester Relationship Specialty Start Date End Date Pedro Jacob MD [address] [facility] [place] [address] PCP - General Family Medicine 07/13/21 Electric Motor Assembler And Tester Relationship Specialty Start Date End Date Pedro Jacob MD [address] [facility] [place] [address] PCP - General Family Medicine 07/13/21 Electric Motor Assembler And Tester Relationship Specialty Start Date End Date Pedro Jacob MD [address] [facility] [place] [address] PCP - General Family Medicine 07/13/21 Electric Motor Assembler And Tester Relationship Specialty Start Date End Date Pedro Jacob MD [address] [facility] [place] [address] PCP - General Family Medicine 07/13/21 Electric Motor Assembler And Tester Relationship Specialty Start Date End Date Pedro Jacob MD [address] [facility] [place] [address] PCP - General Family Medicine 07/13/21 Electric Motor Assembler And Tester Relationship Specialty Start Date End Date Pedro Jacob MD [address] [facility] [place] [address] PCP - General Family Medicine 07/13/21 Electric Motor Assembler And Tester Relationship Specialty Start Date End Date Pedro Jacob MD [address] [facility] [place] [address] PCP - General Family Medicine 07/13/21 Electric Motor Assembler And Tester Relationship Specialty Start Date End Date Pedro Jacob MD [address] [facility] [place] [address] PCP - General Family Medicine 07/13/21 Electric Motor Assembler And Tester Relationship Specialty Start Date End Date Pedro Jacob MD [address] [facility] [place] [address] PCP - General Family Medicine 07/13/21 Electric Motor Assembler And Tester Relationship Specialty Start Date End Date Pedro Jacob MD [address] [facility] [place] [address] PCP - General Family Medicine 07/13/21 Electric Motor Assembler And Tester Relationship Specialty Start Date End Date Pedro Jacob MD [address] [facility] [address] PCP - General Family Medicine 07/13/21 Electric Motor Assembler And Tester Relationship Specialty Start Date End Date Pedro Jacob MD [address] [facility] [place] [address] PCP - General Family Medicine 07/13/21 Electric Motor Assembler And Tester Relationship Specialty Start Date End Date Pedro Jacob MD [address] [facility] [place] [address] PCP - General Family Medicine 07/13/21 Electric Motor Assembler And Tester Relationship Specialty Start Date End Date Pedro Jacob MD [address] [facility] [place] [address] PCP - General Family Medicine 07/13/21 Electric Motor Assembler And Tester Relationship Specialty Start Date End Date Pedro Jacob MD [address] [place] [address] PCP - General Family Medicine 07/13/21 Electric Motor Assembler And Tester Relationship Specialty Start Date End Date Pedro Jacob MD [address] [place] [address] PCP - General Family Medicine 07/13/21 Electric Motor Assembler And Tester Relationship Specialty Start Date End Date Pedro Jacob MD [address] [place] [address] PCP - General Family Medicine 07/13/21 Electric Motor Assembler And Tester Relationship Specialty Start Date End Date Pedro Jacob MD [address] [place] [address] PCP - General Family Medicine 07/13/21 Electric Motor Assembler And Tester Relationship Specialty Start Date End Date Pedro Jacob MD [address] [place] [address] PCP - General Family Medicine 07/13/21 Electric Motor Assembler And Tester Relationship Specialty Start Date End Date Pedro Jacob MD [address] [place] [address] PCP - General Family Medicine 07/13/21 Electric Motor Assembler And Tester Relationship Specialty Start Date End Date Pedro Jacob MD [address] [place] [address] PCP - General Family Medicine 07/13/21 Electric Motor Assembler And Tester Relationship Specialty Start Date End Date Pedro Jacob MD [address] [facility] [place] [address] PCP - General Family Medicine 07/13/21 Electric Motor Assembler And Tester Relationship Specialty Start Date End Date Pedro Jacob MD [address] [facility] [place] [address] PCP - General Family Medicine 07/13/21 Electric Motor Assembler And Tester Relationship Specialty Start Date End Date Pedro Jacob MD [address] [place] [address] PCP - General Family Medicine 07/13/21 Electric Motor Assembler And Tester Relationship Specialty Start Date End Date Pedro Jacob MD [address] [place] [address] PCP - General Family Medicine 07/13/21 Electric Motor Assembler And Tester Relationship Specialty Start Date End Date Pedro Jacob MD [address] [place] [address] PCP - General Family Medicine 07/13/21 Electric Motor Assembler And Tester Relationship Specialty Start Date End Date Pedro Jacob MD [address] [place] [address] PCP - General Family Medicine 07/13/21 Electric Motor Assembler And Tester Relationship Specialty Start Date End Date Pedro Jacob MD [address] [place] [address] PCP - General Family Medicine 07/13/21 Electric Motor Assembler And Tester Relationship Specialty Start Date End Date Pedro Jacob MD [address] [facility] [place] [address] PCP - General Family Medicine 07/13/21 Electric Motor Assembler And Tester Relationship Specialty Start Date End Date Pedro Jacob MD [address] [place] [address] PCP - General Family Medicine 07/13/21 Electric Motor Assembler And Tester Relationship Specialty Start Date End Date Pedro Jacob MD [address] [place] [address] PCP - General Family Medicine 07/13/21 Electric Motor Assembler And Tester Relationship Specialty Start Date End Date Pedro Jacob MD [address] [place] [address] PCP - General Family Medicine 07/13/21 Electric Motor Assembler [employer] Tester Relationship Specialty Start Date End Date Pedro Jacob MD [address] [place] [address] PCP - General Family Medicine 07/13/21 Electric Motor Assembler And Tester Relationship Specialty Start Date End Date Pedro Jacob MD [address] [place] [address] PCP - General Family Medicine 07/13/21 Electric Motor Assembler [employer] Tester Relationship Specialty Start Date End Date Pedro Jacob MD [address] [place] [address] PCP - General Family Medicine 07/13/21 Electric Motor Assembler And Tester Relationship Specialty Start Date End Date Pedro Jacob MD [address] [place], [place] [address] PCP - General Family Medicine 07/13/21 Electric [employer] Relationship Specialty Start Date End Date Pedro Jacob MD [address] [place] [address] PCP - General Family Medicine 07/13/21 [employer] T[employer] Relationship Specialty Start Date End Date Pedro Jacob MD [address] [facility] [place] [address] PCP - General Family Medicine 07/13/21 Myrna Odell APRN.BEHAVIORAL CONSULTANT [address] [facility] [place] [address] Campus Rep Family Medicine 08/24/24 Anika Bullock APRN.BEHAVIORAL CONSULTANT [address] [facility] [place] [address] Campus Rep Family Medicine 08/24/24 Electric [employer]er [employer] Tester Relationship Specialty Start Date End Date Pedro Jacob MD [address] [facility] [place] [address] PCP - General Family Medicine 07/13/21 Myrna Odell APRN.BEHAVIORAL CONSULTANT [address] [facility] [place] [address] Campus Rep Family Medicine 08/24/[address] TECHNICIAN.BEHAVIORAL CONSULTANT [address] [facility] [place] [address] Campus Rep Family Medicine 08/24/24 Electric [employer]er [employer] T[employer] Relationship Specialty Start Date End Date Pedro Jacob MD [address] [facility] [place] [address] PCP - General Family Medicine 07/13/21 Myrna Odell APRN.BEHAVIORAL CONSULTANT [address] [facility] [address] Campus Rep Family Medicine 08/24/24 Anika Bullock APRN.BEHAVIORAL CONSULTANT [address] [facility] [address] [facility] Electric [employer] T[employer] Relationship Specialty Start Date End Date Pedro Jacob MD [address] [facility] [address] PCP - General Family Medicine 07/13/21 Myrna Odell APRN.BEHAVIORAL CONSULTANT [address] [place] [address] Campus Rep Family Medicine 08/24/24 Anika Bullock APRN.BEHAVIORAL CONSULTANT [address] [facility] [place] [address] [facility] 08/24/24 Electric [employer] Tester Relationship Specialty Start Date End Date Pedro Jacob MD [address] [facility] [place] [address] PCP - General Family Medicine 07/13/21 Myrna Odell APRN.BEHAVIORAL CONSULTANT [address] [facility] [address] Campus Rep Family Medicine 08/24/24 Anika Bullock APRN.BEHAVIORAL CONSULTANT [address] [facility] [place] [address] [facility] 08/24/24 Electric Motor Assembler [employer] Tester Relationship Specialty Start Date End Date Pedro Jacob MD [address] [facility] [place] [address] PCP - General Family Medicine 07/13/21 Myrna Odell APRN.BEHAVIORAL CONSULTANT [address] [facility] [address] Campus Rep [facility] 08/24/24 Anika Bullock APRN.BEHAVIORAL CONSULTANT [address] [facility] [place] [address] [facility] 08/24/24 Electric [employer] As[employer]er [employer] T[employer] Relationship Specialty Start Date End Date Pedro Jacob MD [address] [facility] [place] [address] PCP - General Family Medicine 07/13/21 Myrna Odell APRN.BEHAVIORAL CONSULTANT [address] [facility] [place] [address] [facility] 08/24/[address] TECHNICIAN.BEHAVIORAL CONSULTANT [address] [facility] [place] [address] [facility] 08/24/24 Electric [employer] T[employer] Relationship Specialty Start Date End Date Pedro Jacob MD [address] [facility] [place] [address] PCP - General Family Medicine 07/13/21 Myrna Odell APRN.BEHAVIORAL CONSULTANT [address] [facility] [place] [address] [facility] 08/24/[address] TECHNICIAN.BEHAVIORAL CONSULTANT [address] [facility] [place] [address] [facility] 08/24/24 Electric [employer] Assembler [employer] Tester Relationship Specialty Start Date End Date Pedro Jacob MD [address] [facility] [place] [address] PCP - General Family Medicine 07/13/21 Myrna Odell APRN.BEHAVIORAL CONSULTANT [address] [facility] [place] [address] Campus Rep Family Medicine 08/24/24 Anika Bullock APRN.BEHAVIORAL CONSULTANT [address] [facility] [place] [address] [facility] 08/24/24 Electric [employer] As[employer]er [employer] Tester Relationship Specialty Start Date End Date Pedro Jacob MD [address] [facility] [place] [address] PCP - General Family Medicine 07/13/21 Myrna Odell APRN.BEHAVIORAL CONSULTANT [address] [facility] [address] [facility] 08/24/[address] TECHNICIAN.BEHAVIORAL CONSULTANT [address] [facility] [place] [address] [facility] 08/24/24 Electric [employer]er [employer] T[employer] Relationship Specialty Start Date End Date Pedro Jacob MD [address] [facility] [place] [address] PCP - General Family Medicine 07/13/[address] TECHNICIAN.BEHAVIORAL CONSULTANT [address] [place] [address] [facility] 08/24/[address] TECHNICIAN.BEHAVIORAL CONSULTANT [address] [facility] [place] [address] [facility] 08/24/24 Electric [employer]er [employer] Tester Relationship Specialty Start Date End Date Pedro Jacob MD [address] [facility], [place] [address] PCP - General Family Medicine 07/13/21 Myrna Odell, KAITLYNN.BEHAVIORAL CONSULTANT [address] [facility], [place] [address] Campus Rep [facility] 08/24/24 Anika Bullock APRN.BEHAVIORAL CONSULTANT [address] [facility], [place] [address] [facility] 08/24/24 Team Status: Active Member Role/Relationship Status Dates Dr. Pedro Jacob MD Primary Care Provider Active Team Status: Inactive Member Role/Relationship Status Dates Dr. Pedro Jacob MD Primary Care Provider Active Start: March 22, 2025 End: March 22, 2025 Renetta Sanchez CREAM DUMPER, CREAM DUMPER-C Attending Provider Active Start: March 22, 2025 End: March 22, 2025 Renetta Sanchez CREAM DUMPER, CREAM DUMPER-C Referring Provider Active Start: March 22, 2025 End: March 22, 2025 Team Status: Active Member Role/Relationship Status Dates Dr. Pedro Jacob MD Primary Care Provider Active Start: March 22, 2025 Dr. Dominguez Cheema MD Attending Provider Active S tart: March 22, 2025 Team Status: Active Member Role/Relationship Status Dates Dr. Pedro Jacob MD Primary Care Provider Active Start: March 22, 2025 Renetta Sanchez CREAM DUMPER, CREAM DUMPER-C Attending Provider Active Start: March 22, 2025 Electric [employer]sembler [employer] Tester Relationship Specialty Start Date End Date Pedro Jacob MD [address] [facility], [place] [address] PCP - General Family Medicine 07/13/21 Myrna Odell APRN.BEHAVIORAL CONSULTANT [address] [place] [address] [facility] 08/24/24 Anika Bullock APRN.[facility] [address] [place] [address] Campus Rep Family Medicine 08/24/24 INFORMATION SOURCE (unrecogn ized section and content) DATE CREATED AUTHOR 08/28/2022 [facility]ter DATE CREATED AUTHOR AUTHOR'S ORGANIZ ATION 12/13/2022 [facility] DATE CREATED AUTHOR AUTHOR'S ORGANIZ ATION 03/27/2025 [facility] DATE CREATED AUTHOR AUTHOR'S ORGANIZ ATION 04/03/2025 [facility] DATE CREATED AUTHOR AUTHOR'S ORGANIZ ATION 04/11/[address] [facility] FOR RECORDS PERTAINING TO PATIENTS WHO ARE OR HAVE BEEN ENROLLED IN A CHEMICAL DEPENDENCY/SUBSTANCEABUSE PROGRAM, SOME INFORMATION MAY BE OMITTED. This clinical summary was aggregated from multiple sources. Caution should be exercised in using it in the provision of clinical care. This summary normalizes information from multiple sources, and as a consequence, information in this document may materially change the coding, format and clinical context of patient data. In addition, data may be omitted in some cases. CLINICAL DECISIONS SHOULD BE BASED ON THE PRIMARY CLINICAL RECORDS. [employer] provides no warranty or guarantee of the accuracy or completeness of information in this document.
--- NOTE | 2025-04-15 13:41 | STRESSREP ---
Stress Test Report Pharmacologic myocardial perfusion stress test. 69-year-old lady with a history of dyspnea on exertion Resting EKG demonstrates sinus bradycardia with a rate of 57 bpm. Resting blood pressure is 140/82 mmHg. 0.4 mg of regadenoson was infused per usual protocol followed by rapid intravenous saline flush injection. Continuous EKG monitoring was performed. The maximum heart rate was 69 bpm which was 46% of max impacted heart rate the maximum workload was 1 metabolic equivalent. At rest there were no ST or T wave changes noted to suggest ischemia and at peak infusion nonspecific ST changes were noted which did not meet the criteria for ischemia. No clinical angina is noted. The final blood pressure was 132/76 mmHg. Myocardial perfusion protocol. 14.9 mCi of technetium 99m sestamibi was injected at rest. 0.4 mg of regadenoson was infused per usual protocol. At peak infusion 44.6 mCi of technetium 99m sestamibi was injected stress images were obtained stress and rest images were reconstructed and compared in the short axis vertical long and horizontal long axis. Gated images were also obtained. Perfusion SPECT analysis: Review of the stress images demonstrate normal uptake of tracer noted in all areas of the myocardium. The resting images similar demonstrated normal uptake of tracer noted in all areas of the myocardium. No areas of reversibility are noted to suggest ischemia and no previous infarct is noted. Gated SPECT analysis: The gated ejection fraction is 67%. Conclusion: Normal pharmacologic myocardial perfusion stress test. Preserved ejection fraction.
== END | disposition home or self-care (01) ==
LOC: CVS 06:01
PROVIDERS: PCP Family Medicine; Referring Provider Nurse Practitioner Gerontology; Visit Provider Nurse Practitioner Gerontology
DX: R06.00 Dyspnea, unspecified (principal)
CPT/HCPCS: 78452; 93017; A9500; A4216; J2785